=== PATIENT | female | born 1940 | race Caucasian/White ===

== ENCOUNTER → 2017-12-26 12:11 | Outpatient (CLI) | payer OTHER, SELFPAY ==
--- NOTE | 2017-12-26 12:14 | DI.US.S_ITS ---
PROCEDURE: US PERIPH VENOUS UP EXTREM RT INDICATIONS: RIGHT ARM EDEMA TECHNIQUE: Real-time imaging, as well as color and pulse Doppler interrogation, was performed of the right upper extremity deep veins from the inferior neck to the antecubital fossa. COMPARISON: None. FINDINGS: The internal jugular vein, visualized portions of the subclavian vein, axillary, and brachial veins are free of intraluminal thrombus. Where physically possible, the veins are normally compressible. Color and pulse Doppler demonstrate normal intraluminal flow, with expected phasicity and pulsatility. Additional scanning of the cephalic and basilic veins of the superficial system demonstrate normal compressibility, without thrombus. IMPRESSION: No right upper extremity venous thrombosis. Dictated by: Steve ROGER Interpreted: Harmony Aden MD on 12/26/2017 at 13:11 Approved by: Harmony Aden M.D. on 12/26/2017 at 16:22
== END ==
PROVIDERS: Family Provider Family Medicine; PCP Family Medicine; Visit Provider Internal Medicine
DX: R60.0 Localized edema (principal)
CPT/HCPCS: 93971

== ENCOUNTER → 2018-01-16 10:31 | Outpatient (CLI) | payer OTHER, SELFPAY ==
--- NOTE | 2018-01-16 | DI.ECHO.S_ITS ---
[facility] +---------+ : : [address] : : : : [id number] : : : : Phone: [phone]+ Echocardiogram Report + + :Name: AILYN BARGER Study Date: 01/16/2018 Height: 73 in : :[facility] Exam Location: [facility] Weight: 220 lb : : Gender: Female BSA: 2.2 m2 : :: 1940 Age: 77 yrs BP: 118/68 mmHg: :Reason For Study: Mitral Valve Regurgitation : :Ordering Physician: Mohan : :Denis Performed By: Vicki Aleman : :Referring: MOHAN SMILEY : + + Interpretation Summary The left ventricle is borderline dilated. Left ventricular ejection fraction is estimated to be 50%. There has been no significant change since the previous study. The right ventricle is normal in size and function. The right ventricular systolic pressure is estimated at 31 mmHg assuming a right atrial pressure of 3 mm Hg. Compared to the prior echo exam, there has been a decrease in the severity of pulmonary hypertension. Both atria are severely dilated. There is moderate mitral regurgitation. Compared to the prior echo study, there has been a decrease in the severity of mitral regurgitation. There is moderate to severe tricuspid regurgitation. Compared to the prior echo exam, there has been no change in TR severity. There is no other significant valvular heart disease. The aortic root is normal size. Procedure: There has been no significant change since the previous study. The study quality was technically adequate. Comparison is made with the echocardiogram of 12/25/2016. The patient was in atrial fibrillation with heart rates between 69-92 bpm during the exam. Left Ventricle: The left ventricle is borderline dilated. Left ventricular wall thickness is mildly increased. Left ventricular ejection fraction is estimated to be 50%. There has been no significant change since the previous study. There are no focal wall motion abnormalities. Diastolic function could not be accurately assessed due to atrial fibrillation. Right Ventricle: The right ventricle is normal in size and function. Atria: Both atria are severely dilated. A secundum type atrial septal defect is present. There has been no significant change since the previous study. Mitral Valve: The mitral valve leaflets appear borderline thickened, but open well. There is moderate mitral regurgitation. Compared to the prior echo study, there has been a decrease in the severity of mitral regurgitation. Aortic Valve: The aortic valve is trileaflet. No aortic regurgitation is present. Tricuspid Valve: The tricuspid valve leaflets are thin and pliable. There is moderate to severe tricuspid regurgitation. Compared to the prior echo exam, there has been no change in TR severity. The right ventricular systolic pressure is estimated at 31 mmHg assuming a right atrial pressure of 3 mm Hg. Compared to the prior echo exam, there has been a decrease in the severity of pulmonary hypertension. Pulmonic Valve: The pulmonic valve is not well seen, but is grossly normal. There is trace pulmonic regurgitation. There is no other significant valvular heart disease. Great Vessels: The aortic root is normal size. The ascending aorta is normal in size. The IVC is of normal diameter and collapses greater than 50% with a sniff. This suggests a low right atrial pressure of 3 mm Hg. Pericardium/ Pleura There is no pericardial effusion. There is no pleural effusion. MMode/2D Measurements & Calculations LVIDd: 5.6 cm LVOT diam: 2.5 cm LVIDs: 4.7 cm Ao root diam: 3.7 cm FS: 15.5 % asc Aorta Diam: 3.5 cm IVSd: 1.2 cm LVPWd: 1.3 cm LV langford. diameter/BSA (cm/m^2): 2.5 LV sys. diameter/BSA (cm/m^2): 2.1 LA A2 area: 48.3 cm2 RA long axis: 8.4 cm LA A4 area: 47.8 cm2 RA area: 40.6 cm2 LA length (vol): 8.2 cm RA vol: 167.2 ml LA vol: 239.0 ml RA : 74.6 ml/m2 LA vol index: 106.7 ml/m2 IVC diam: 1.00 cm TAPSE: 2.0 cm Doppler Measurements & Calculations Ao V2 max: 111.5 cm/sec LVOT Max Ivan: 92.6 cm/sec Ao V2 mean: 73.8 cm/sec LV V1 max P.4 mmHg Ao max P.0 mmHg LV V1 VTI: 18.2 cm Ao mean P.6 mmHg TANNER(I,D): 4.2 cm2 Ao V2 VTI: 21.7 cm TANNER(V,D): 4.1 cm2 sev ratio: 0.84 TANNER indexed to BSA (cm^2/m^2): 1.9 TR max ivan: 262.4 cm/sec TR max P.5 mmHg PA V2 max: 62.2 cm/sec PA V2 mean: 37.2 cm/sec PA mean P.65 mmHg PA pr(Accel): 16.6 mmHg Reading Physician:RHEA
== END ==
PROVIDERS: Visit Provider Internal Medicine Cardiovascular Disease
DX: I08.1 Rheumatic disorders of both mitral and tricuspid valves (principal)
CPT/HCPCS: 93306

== ENCOUNTER → 2018-02-11 07:59 | Outpatient (CLI) | payer OTHER, SELFPAY ==
--- NOTE | 2018-02-11 08:01 | DI.US.S_ITS ---
PROCEDURE: US SOFT TISSUE HEAD AND NECK INDICATIONS: RIGHT NECK EDEMA TECHNIQUE: Real-time scanning was performed of the neck region of interest, with image documentation. COMPARISON: None. FINDINGS: No edema, fluid collection or mass seen within the right neck. IMPRESSION: No sonographic abnormality. Dictated by: Steve ROGER Interpreted: Bandar Prado MD on 02/11/2018 at 9:03 Approved by: Bandar Prado M.D. on 02/11/2018 at 15:44
== END ==
PROVIDERS: Visit Provider Nurse Practitioner Family
DX: R60.0 Localized edema (principal)
CPT/HCPCS: 76536

== ENCOUNTER 2018-04-05 09:05 | Emergency (ER) | payer OTHER, SELFPAY ==
--- NOTE | 2018-04-05 09:08 | ED_ITS ---
HPI - Fall General Chief Complaint: Extremity Injury, Upper Stated Complaint: FELL LAST NIGHT, RT WRIST AND HAND PAIN Time Seen by Provider: 04/05/18 09:08 Source: patient Mode of arrival: ambulatory Limitations: no limitations History of Present Illness HPI Narrative: Patient is a 77-year-old female here for evaluation of right wrist pain. She states she fell yesterday trying to get out of her physician close. She states that she fell forward. Unsure how she landed on her wrist however has had pain since then. Arrived with a wrist splint in place that she had at home. Related Data Home Medications Medication Instructions Recorded Confirmed CYANOCOBALAMIN (VITAMIN B-12) 1,000 mcg PO Q DAY #0 03/21/11 01/28/18 (Vitamin B-12) [FISHOIL] 1,000 mg PO Q DAY #0 01/30/12 01/28/18 multivitamin [Multiple Vitamins] #0 08/05/17 01/28/18 Previous Rx's Medication Instructions Recorded nystatin 1 lulu TOPICAL TID #15 gm 11/05/16 warfarin [Coumadin] 0 PO SEE INSTRUCTIONS #150 tab 02/06/17 carvedilol [Coreg] 25 mg PO BID #180 tab 03/25/17 carvedilol [Coreg] 12.5 mg PO BID #180 tab 04/05/17 tramadol 50 mg PO Q6H #30 tab 04/16/17 furosemide [Lasix] 20 mg PO EVEROTHDAY #60 tab 05/02/17 estradiol [Estrace] 1 gm VAGINAL BID #1 tube 05/03/17 betamethasone dipropionate 1 lulu TOPICAL BID #30 gm 08/22/17 fluticasone 50 mcg/actuation nasal 2 spray NASAL DAILY #9.9 gram 11/12/17 spray,suspension levocetirizine 5 mg tablet 5 mg PO BEDTIME #30 tab 11/12/17 losartan 25 mg tablet 25 mg PO QDAY #90 tab 12/05/17 warfarin 5 mg tablet 5 mg PO SEE INSTRUCTIONS #150 tab 01/30/18 Allergies Allergy/AdvReac Type Severity Reaction Status Date / Time acetaminophen Allergy Mild UPSET Verified 01/28/18 11:34 STOMACH digoxin Allergy Mild SWELLING Verified 01/28/18 11:34 LOWER EXTRMITIES hydromorphone Allergy Mild N/V Verified 01/28/18 11:34 adhesive Allergy Unknown SENSITVE Verified 01/28/18 11:34 TO TAPE ibuprofen AdvReac Mild UNABLE TO Verified 01/28/18 11:34 TAKE DUE TO COUMADIN meperidine AdvReac Mild GI UPSET Verified 01/28/18 11:34 WITH VOMITING xylitol AdvReac Mild diarrhea Verified 01/28/18 11:34 and upset stomach Review of Systems Constitutional Denies headache(s) ENT Ears, Nose, Mouth, and Throat: Denies headache(s) Cardiovascular Denies chest pain and Denies dyspnea Respiratory Denies dyspnea Musculoskeletal Comments: Right wrist pain and swelling Integumentary/Breasts Denies lesions and Denies rash Neurologic Denies headache(s) Hematologic/Lymphatic Denies easy bleeding Exam Initial Vital Signs Initial Vital Signs: Vital Signs Temperature 97.8 F 04/05/18 09:21 Pulse Rate 76 04/05/18 09:21 Respiratory Rate 16 04/05/18 09:21 Blood Pressure 137/74 04/05/18 09:21 Pulse Oximetry 99 04/05/18 09:21 Const General: cooperative, healthy appearing, comfortable, well developed, well groomed and No acute distress Orientation: alert, awake and oriented x3 HENMT Head: normal to inspection and normocephalic Resp Effort & Inspection: normal respiratory effort Cardio Pulses: radial pulses present on the right Skin Lesions: no lesions Rashes: no rashes Neuro Sensory Exam: no sensory deficits noted Extrem Other: Right shoulder unremarkable Right wrist unremarkable Patient able to pronate without any problems Some difficulty with supination. Decreased range of motion of the right wrist secondary to pain. Does have tenderness to palpation of the distal wrist. Right hand unremarkable. Psych Appearance: grossly normal and well kempt [facility] Social History Smoking Status: Former smoker Course Orders Ordered: ED Orders 04/05/18 09:23 XR wrist RT min 3V Stat Vital Signs - 8 hr 04/05/18 09:21 Temperature 97.8 F Pulse Rate 76 Respiratory Rate 16 Blood Pressure 137/74 Pulse Oximetry 99 MDM - Fall Imaging Data Wrist x-ray: Radiologist's impression: [address] [address] XRay Report Signed Patient: Ana M Gale [facility]#: [id number] : 3Acct:[id number] Age/Sex: 77 / FDate of Service: 04/05/18 Loc: ED Accession Number: [id number] Procedure: XR wrist RT min 3V Ordering Provider: Jesse Fernandez D.O. PROCEDURE: XR WRIST RT MIN 3V INDICATIONS: Distal radius and ulna pain after fall TECHNIQUE: 4 views of the wrist were acquired. COMPARISON: [facility], , WRIST MINIMUM 3 VIEWS RIGHT, 04/16/2017, 10: 02. FINDINGS: Bones: No fractures or dislocations. No suspicious bony lesions. Joint space narrowing and periarticular osteophyte formation at the radiocarpal, scaphotrapezial, and first carpometacarpal joints. Scaphoid view: Negative Soft tissues: No suspicious soft tissue calcifications. IMPRESSION: Osteoarthritis. No acute fracture. No osseous lesion. If clinical suspicion and/or symptoms persist, further assessment with repeat plainfilms, or advanced imaging (e.g., CT, MRI, or bone scan) may be helpful for further assessment. Dictated by: Rachel Ivey M.D. on 04/05/2018 at 9:52 Approved by: Rachel Ivey M.D. on 04/05/2018 at 9:53 [facility] Narrative Medical decision making narrative: Patient is neurovascularly intact. No fractures noted on the x-ray. Skin is intact. Hold on further workup for now. Patient does have a wrist brace that she can use as needed. She was given return precautions. She expressed understanding and agreement with plan. Discharge Plan Departure Patient Disposition: Home Clinical Impression: Right wrist sprain Instructions: DI for Wrist Sprain, How To Perform RICE (Rest, Ice, Compress, Elevate) Activity Restrictions/Additional Instructions: You can continue to use the wrist brace as needed for comfort. I also encouraged you to ice her wrist. You can take anti-inflammatories such as Motrin or Naprosyn. Return to the emergency department for any new or worsening symptoms Prescriptions: No Action CYANOCOBALAMIN (VITAMIN B-12) (Vitamin B-12) 1,000 mcg PO Q DAY Qty: 0 RF: 0 [FISHOIL] 1,000 mg PO Q DAY Qty: 0 RF: 0 nystatin 15 GM ointment 1 lulu Topical TID Qty: 15 RF: 0 warfarin [Coumadin] 5 MG tablet PO SEE INSTRUCTIONS Qty: 150 RF: 1 carvedilol [Coreg] 25 MG tablet 25 mg PO BID Qty: 180 RF: 3 carvedilol [Coreg] 12.5 MG tablet 12.5 mg PO BID Qty: 180 RF: 3 tramadol 50 MG tablet 50 mg PO Q6H Qty: 30 RF: 0 furosemide [Lasix] 20 MG tablet 20 mg PO EVEROTHDAY Qty: 60 RF: 0 estradiol [Estrace] 0.01 % cream 1 gm Vaginal BID Qty: 1 RF: 2 multivitamin [Multiple Vitamins] 1 EACH tablet Qty: 0 RF: 0 betamethasone dipropionate 0.05 % cream 1 lulu Topical BID Qty: 30 RF: 2 losartan 25 mg tablet 25 mg PO QDAY Qty: 90 RF: 3 warfarin [Coumadin] 5 mg tablet 5 mg PO SEE INSTRUCTIONS Qty: 150 RF: 3 fluticasone 50 mcg/actuation spray,suspension 2 spray NASAL DAILY Qty: 9.9 RF: 3 levocetirizine 5 mg tablet 5 mg PO BEDTIME Qty: 30 RF: 3
[2018-04-05 09:21] VITALS: BP 137/74; PULSE 76; RESP 16; TEMP 36.6; O2SAT 99; BMI 27.8
--- NOTE | 2018-04-05 09:23 | DI.RAD.S_ITS ---
PROCEDURE: XR WRIST RT MIN 3V INDICATIONS: Distal radius and ulna pain after fall TECHNIQUE: 4 views of the wrist were acquired. COMPARISON: [facility], , WRIST MINIMUM 3 VIEWS RIGHT, 04/16/2017, 10:02. FINDINGS: Bones: No fractures or dislocations. No suspicious bony lesions. Joint space narrowing and periarticular osteophyte formation at the radiocarpal, scaphotrapezial, and first carpometacarpal joints. Scaphoid view: Negative Soft tissues: No suspicious soft tissue calcifications. IMPRESSION: Osteoarthritis. No acute fracture. No osseous lesion. If clinical suspicion and/or symptoms persist, further assessment with repeat plainfilms, or advanced imaging (e.g., CT, MRI, or bone scan) may be helpful for further assessment. Dictated by: Rachel Ivey M.D. on 04/05/2018 at 9:52 Approved by: Rachel Ivey M.D. on 04/05/2018 at 9:53
== END 2018-04-05 10:10 | disposition home or self-care (01) ==
PROVIDERS: Emergency Provider Emergency Medicine; PCP Family Medicine
DX: S63.501A Unspecified sprain of right wrist, initial encounter (principal); W18.30XA Fall on same level, unspecified, initial encounter
CPT/HCPCS: 73110; 99282; 99283

== ENCOUNTER → 2018-06-26 11:19 | Outpatient (CLI) | payer OTHER, SELFPAY ==
[2018-06-26 15:37] LABS: Vitamin D 25 Hydroxy (D3) 47.2 ng/mL (30.0-100.0)
== END ==
PROVIDERS: PCP Student in an Organized Health Care Education/Training Program; Visit Provider Student in an Organized Health Care Education/Training Program
DX: M81.0 Age-related osteoporosis without current pathological fracture (principal)
CPT/HCPCS: 36415; 82306

== ENCOUNTER → 2018-07-07 13:32 | Outpatient (CLI) | payer OTHER, SELFPAY | PROVIDERS: PCP Student in an Organized Health Care Education/Training Program; Visit Provider Student in an Organized Health Care Education/Training Program | DX: M85.832 Other specified disorders of bone density and structure, left forearm (principal); Z78.0 Asymptomatic menopausal state; Z82.62 Family history of osteoporosis; Z87.891 Personal history of nicotine dependence | CPT/HCPCS: 77080 ==

== ENCOUNTER 2018-07-22 12:16 | Emergency (ER) | payer OTHER, SELFPAY ==
[2018-07-22 12:26] VITALS: BP 141/75; PULSE 62; RESP 18; TEMP 36.8; O2SAT 96; BMI 28.3
--- NOTE | 2018-07-22 16:29 | ED.FEMALEGU ---
HPI - Female Genitourinary <Alivia Ya PA-C - Last Filed: 07/22/18 22:04> General Chief complaint: Urogenital-Female Stated complaint: VAGINAL SORE BURST Time Seen by Provider: 07/22/18 16:06 Source: patient Mode of arrival: ambulatory Limitations: no limitations History of Present Illness HPI Narrative: This 77 y.o. female the comes to ED secondary to concern for vaginal abscess/infection. She states that she has a history of lichen sclerosis, but has noted increased discomfort over the last couple of weeks and states that over the weekend she noted the area around the clitoris was swollen to the ?size of a golf ball?. She states that she talked to her advised cold packs which she has been doing. She states that this morning, she noted the area starting to weep and opened up. It drained malodorous pus and blood. She states that painful currently. She denies any fever or other new complaints aside from this. She avoided putting on her steroid cream this morning. She has an appointment to see sales planning manager on Saturday but was concerned this could not wait. Related Data Home Medications Medication Instructions Recorded Confirmed CYANOCOBALAMIN (VITAMIN B-12) 1,000 mcg PO Q DAY #0 03/21/11 06/26/18 (Vitamin B-12) [FISHOIL] 1,000 mg PO Q DAY #0 01/30/12 06/26/18 multivitamin [Multiple Vitamins] #0 08/05/17 06/26/18 Previous Rx's Medication Instructions Recorded estradiol [Estrace] 1 gm VAGINAL BID #1 tube 05/03/17 fluticasone 50 mcg/actuation nasal 2 spray NASAL DAILY #9.9 gram 11/12/17 spray,suspension levocetirizine 5 mg tablet 5 mg PO BEDTIME #30 tab 11/12/17 warfarin 5 mg tablet 5 mg PO SEE INSTRUCTIONS #150 tab 01/30/18 losartan 25 mg tablet 25 mg PO QDAY #90 tab 05/08/18 furosemide 20 mg tablet 20 mg PO EVEROTHDAY #60 tab 06/26/18 carvedilol 12.5 mg tablet 12.5 mg PO BID #180 tab 07/11/18 Allergies Allergy/AdvReac Type Severity Reaction Status Date / Time acetaminophen Allergy Mild UPSET Verified 06/26/18 10:50 STOMACH digoxin Allergy Mild SWELLING Verified 06/26/18 10:50 LOWER EXTRMITIES hydromorphone Allergy Mild N/V Verified 06/26/18 10:50 adhesive Allergy Unknown SENSITVE Verified 06/26/18 10:50 TO TAPE ibuprofen AdvReac Mild UNABLE TO Verified 06/26/18 10:50 TAKE DUE TO COUMADIN meperidine AdvReac Mild GI UPSET Verified 06/26/18 10:50 WITH VOMITING xylitol AdvReac Mild diarrhea Verified 06/26/18 10:50 and upset stomach Review of Systems <Alivia Ya PA-C - Last Filed: 07/22/18 22:04> Review of Systems ROS Unobtainable: All systems reviewed & are unremarkable except as noted in HPI and below PFSH <Alivia Ya PA-C - Last Filed: 07/22/18 22:04> Medical History Atrial fibrillation (Chronic 2006) CTS (carpal tunnel syndrome) (Chronic) Cardiomyopathy (Chronic) Hayfever (Chronic 1959) Heart failure, systolic (Chronic) Lichen sclerosus et atrophicus (Chronic 2011) Mitral stenosis (Chronic) Osteoarthritis (Chronic 1996) Osteopenia (Chronic) Osteoporosis (Chronic) Bimalleolar fracture of right ankle (Resolved 2015) Cataract (Resolved) Chicken pox (Resolved 1948) 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) Fractures (Resolved 10/08/07) Measles (Resolved 1948) Surgical History Anesthesia (Resolved) History of carpal tunnel repair (Resolved 1979) History of carpal tunnel repair (Resolved 03/23/04) History of cataract removal with insertion of prosthetic lens (Resolved 01/02/12) History of cataract removal with insertion of prosthetic lens (Resolved 12/19/11) History of hip replacement (Resolved 05/08/10) History of hip surgery (Resolved 05/16/08) History of hip surgery (Resolved 10/08/07) History of knee replacement (Resolved 02/11/12) History of knee replacement (Resolved 07/19/08) History of nasal surgery (Resolved 10/03/11) History of orthopedic surgery (Resolved 10/17/09) Status post vaginal hysterectomy (Resolved 1974) Family History Father Family history of MT (myocardial infarction) Heart disease Congestive heart failure Mother Cancer Myeloma Necrotizing fasciitis Brother MVA (motor vehicle accident) Sister No problems noted. Daughter No problems noted. Son No problems noted. Social History Smoking Status: Former smoker Social History Smoking Status: Former smoker Exam <Alivia Ya PA-C - Last Filed: 07/22/18 22:04> Narrative Exam Narrative: GENERAL APPEARANCE: Patient sitting comfortably, in no distress. LUNGS: Clear to auscultation bilaterally. HEART: Rate and rhythm irregular without murmur : Vaginal tissue is thin, atrophy, with some whitish discoloration. In the midline around the clitoral area there is mild erythema and some induration, the clitoris is not visible and the labia appears fused. There is a visible pore on the R. side but I am unable to express any drainage. Nontender. No other palpable mass, no other skin lesions, no d/c Initial Vital Signs Initial Vital Signs: Vital Signs Temperature 98.2 F 07/22/18 12:26 Pulse Rate 62 07/22/18 12:26 Respiratory Rate 18 07/22/18 12:26 Blood Pressure 141/75 H 07/22/18 12:26 Pulse Oximetry 96 07/22/18 12:26 <Ruth Ann Aj DO - Last Filed: 07/26/18 00:50> Initial Vital Signs Initial Vital Signs: Vital Signs Temperature 98.2 F 07/22/18 12:26 Pulse Rate 62 07/22/18 12:26 Respiratory Rate 18 07/22/18 12:26 Blood Pressure 141/75 H 07/22/18 12:26 Pulse Oximetry 96 07/22/18 12:26 Course <Alivia Ya PA-C - Last Filed: 07/22/18 22:04> Additional Information: The patient has some induration and what looks like fused labia, likely due to her lichen sclerosis. Unclear to me whether she may have had a new abscess that drained since she describes blood and pus draining. We phoned Dr. Espinosa's office to see whether the patient could follow up earlier, and Dr. Espinosa was kind enough to see patient in the ED here. She agreed that this area was indurated and felt most likely due to inflammation from the lichen sclerosis. She advised that there may have been fluid behind the fused area. She did not think antibiotics needed now. She advised patient to continue b.i.d. as topical steroid application as well as her Estrace and cold packs. She will follow up with patient in her office next week Vital Signs - 8 hr 07/22/18 12:26 Temperature 98.2 F Pulse Rate 62 Respiratory Rate 18 Blood Pressure 141/75 H Pulse Oximetry 96 <Ruth Ann Aj, DO - Last Filed: 07/26/18 00:50> Vital Signs - 8 hr 07/22/18 12:26 Temperature 98.2 F Pulse Rate 62 Respiratory Rate 18 Blood Pressure 141/75 H Pulse Oximetry 96 Discharge Plan Departure Patient Disposition: Home Clinical Impression: Lichen sclerosus et atrophicus Discharge Date/Time: 07/22/18 18:15 Interventions: ED Discharge Assessment Last Done: 07/22/18 18:08 Activity Restrictions/Additional Instructions: It sounds like you could have had a small abscess that drained earlier today, or this may have been due to the inflammation from your lichen sclerosis, and there could have been a fluid collection underneath the fused labial tissue. Dr. Espinosa does not think you need to be on an antibiotic now. She wants you to use your betamethasone cream twice daily, and also use your Estrace cream once daily. Please start those tonight. Please keep your appointment with her on Saturday (call her office 1st thing in the morning to make sure this was not canceled as she wants to see you then instead of ). Thank you for your kindness and patience today with the long wait in our busy emergency department Prescriptions: No Action CYANOCOBALAMIN (VITAMIN B-12) (Vitamin B-12) 1,000 mcg PO Q DAY Qty: 0 RF: 0 [FISHOIL] 1,000 mg PO Q DAY Qty: 0 RF: 0 estradiol [Estrace] 0.01 % cream 1 gm Vaginal BID Qty: 1 RF: 2 multivitamin [Multiple Vitamins] 1 EACH tablet Qty: 0 RF: 0 warfarin [Coumadin] 5 mg tablet 5 mg PO SEE INSTRUCTIONS Qty: 150 RF: 3 losartan 25 mg tablet 25 mg PO QDAY Qty: 90 RF: 0 carvedilol [Coreg] 12.5 mg tablet 12.5 mg PO BID Qty: 180 RF: 3 fluticasone 50 mcg/actuation spray,suspension 2 spray NASAL DAILY Qty: 9.9 RF: 3 levocetirizine 5 mg tablet 5 mg PO BEDTIME Qty: 30 RF: 3 furosemide [Lasix] 20 mg tablet 20 mg PO EVEROTHDAY Qty: 60 RF: 1 Referrals: Sai Ott MD [Primary Care Provider] - Jody Espinosa MD [Physician] - <Ruth Ann Aj DO - Last Filed: 07/26/18 00:50> Cosign ED Attending Tjature Attestation: I was immediately available in the department for consultation. Documentation has been reviewed. I agree with assessment and plan.
--- NOTE | 2018-07-22 17:39 | PC.NURSE ---
awaiting dr. pena to see
--- NOTE | 2018-07-22 18:03 | PC.NURSE ---
dr. pena here to see
== END 2018-07-22 18:15 | disposition home or self-care (01) ==
PROVIDERS: Emergency Provider Internal Medicine; PCP Student in an Organized Health Care Education/Training Program
DX: L90.0 Lichen sclerosus et atrophicus (principal)
CPT/HCPCS: 99282

== ENCOUNTER → 2018-08-25 11:46 | Outpatient (CLI) | payer OTHER, SELFPAY ==
[2018-08-25 11:51] LABS: RBC Urine None Seen (0-5/HPF)
[2018-08-25 12:13] LABS: Appearance Urine UA CLOUDY; Bilirubin Urine UA NEGATIVE (NEGATIVE); Color Urine UA YELLOW; Glucose Urine UA NEGATIVE (Negative); Ketones Urine UA NEGATIVE (NEGATIVE); Leukocyte Esterase Urine UA 1+ (NEGATIVE); Nitrite Urine UA NEGATIVE (Negative); Occult Blood Urine UA 3+ (Negative); Protein Urine UA TRACE (Negative); Specific Gravity Urine UA >=1.030 (1.000-1.035); Urobilinogen Urine UA 0.2 E.U./dL (0.2)
[2018-08-25 12:38] LABS: Bacteria Urine Moderate (10-30); Culture Indicated Urine Specimen Cultured; Renal Epithelial Cells Urine 0-1/HPF (0-1/HPF); Squamous Epithelial Cell Urine 1-5 /HPF (0-5/HPF); WBC Urine 10-30/HPF (0-5/HPF)
== END ==
PROVIDERS: Family Provider Student in an Organized Health Care Education/Training Program; PCP Student in an Organized Health Care Education/Training Program; Visit Provider Internal Medicine
DX: R39.89 Other symptoms and signs involving the genitourinary system (principal)
CPT/HCPCS: 81001; 87077; 87086; 87186

== ENCOUNTER → 2018-09-23 12:51 | Outpatient (CLI) | payer OTHER, SELFPAY | PROVIDERS: Family Provider Student in an Organized Health Care Education/Training Program; PCP Student in an Organized Health Care Education/Training Program; Visit Provider Obstetrics & Gynecology | DX: R30.0 Dysuria (principal) | CPT/HCPCS: 87086 ==

== ENCOUNTER 2018-10-03 09:29 | Day surgery (SDC) | payer OTHER, SELFPAY ==
[2018-10-03 10:11] VITALS: BMI 27.7
[2018-10-03 10:15] VITALS: BP 130/72; PULSE 75; RESP 15; TEMP 36.1; O2SAT 94
[2018-10-03] MEDS: LACTATED RINGERS 1,000 ML 100 ML IV (10:29)
--- NOTE | 2018-10-03 11:16 | PM.PREOP ---
Pre-operative Note Interval Note History & Physical reviewed/Exam performed by Physician: Yes Changes to H&P: No
--- NOTE | 2018-10-03 11:16 | PM.HP.1 ---
History of Present Illness Date Patient Seen: 10/03/18 Time Patient Seen: 11:34 Chief complaint: [id number] PELVIC Narrative: Patient is a 78-year-old with labial agglutination with a blind pocket and recurrent abscesses behind the agglutination Patient History Family & Social History Social History: household members spouse Tobacco & Substance use: Smoking Status Former smoker alcohol intake frequency other Substance Use Type does not use Meds Home Medications Medication Instructions Recorded Confirmed Type [FISHOIL] 1,000 mg PO Q DAY #0 01/30/12 10/03/18 History estradiol [Estrace] 1 gm VAGINAL BID #1 tube 05/03/17 10/03/18 Rx multivitamin [Multiple Vitamins] 1 tab PO DAILY #0 08/05/17 10/03/18 History fluticasone propionate 50 2 spray NASAL DAILY #9.9 gram 11/12/17 10/03/18 Rx mcg/actuation nasal spray,suspension warfarin 5 mg tablet 5 mg PO SEE INSTRUCTIONS #150 tab 01/30/18 10/03/18 Rx losartan 25 mg tablet 25 mg PO QDAY #90 tab 05/08/18 10/03/18 Rx furosemide 20 mg tablet 20 mg PO EVEROTHDAY #60 tab 06/26/18 10/03/18 Rx carvedilol 12.5 mg tablet 12.5 mg PO BID #180 tab 07/11/18 10/03/18 Rx calcium citrate 250 mg tablet 500 mg PO BID tab 09/25/18 10/03/18 History cholecalciferol (vitamin D3) 2,000 2,000 unit PO BID cap 09/25/18 10/03/18 History unit capsule salicylic acid 6 % topical cream 1 applictn TOP BEDTIME #227 gram 09/25/18 10/03/18 Rx betamethasone, augmented 0.05 % 1 applictn TOP DAILY #30 gram 09/30/18 10/03/18 Rx topical gel Allergies Allergy/AdvReac Type Severity Reaction Status Date / Time acetaminophen Allergy Mild UPSET Verified 10/03/18 10:18 STOMACH digoxin Allergy Mild SWELLING Verified 10/03/18 10:18 LOWER EXTRMITIES hydromorphone Allergy Mild N/V Verified 10/03/18 10:18 adhesive Allergy Unknown SENSITVE Verified 10/03/18 10:18 TO TAPE ibuprofen AdvReac Mild UNABLE TO Verified 10/03/18 10:18 TAKE DUE TO COUMADIN meperidine AdvReac Mild GI UPSET Verified 10/03/18 10:18 WITH VOMITING xylitol AdvReac Mild diarrhea Verified 10/03/18 10:18 and upset stomach Exam Vital Signs (past 8 hours): - 10/03/18 10:15 Temperature 97.0 F L Pulse Rate 75 Respiratory Rate 15 Blood Pressure 130/72 Pulse Oximetry 94 Oxygen Delivery Method Room Air Narrative Exam Narrative: HEENT: No thyromegaly, no anterior cervical or supraclavicular lymphadenopathy. Lungs:Clear to auscultation bilaterally, no wheezes. Cardiovascular: Regular rate and rhythm, no murmurs, rubs, or gallops. Abdomen: No scars. No hepatosplenomegaly. No masses palpable. External genitalia: White patches consistent with lichen sclerosis. Severe atrophy. The labia minora are gluten aided with a blind pocket behind. There is a mass behind the agglutination. Vagina: Atrophic Cervix: Absent Bimanual exam: No masses or tenderness Rectal: No masses. 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 The risks including bleeding and infection. She understands these risks and agrees to proceed. A full PAR-Q was held and consent form was signed.
--- NOTE | 2018-10-03 11:45 | SUR.OPER ---
Lithotomy on padded OR bed, head on pillow, arms secured on padded arm boards at <90 degrees abduction. Legs secured in padded yellow fins stirrups.
[2018-10-03] MEDS: BUPIVACAINE 0.5% W/ EPI (PF) VIAL 30 ML INJ (11:54)
[2018-10-03] MEDS: SILVER SULFADIAZINE 1% CREAM 25 GM 1 APPLIC TOP (12:01)
[2018-10-03 12:10] VITALS: BP 123/63; PULSE 63; RESP 16; TEMP 36.9; O2SAT 95
[2018-10-03 12:15] VITALS: BP 114/47; PULSE 55; RESP 13; O2SAT 95
[2018-10-03 12:20] VITALS: BP 123/60; PULSE 61; RESP 12; O2SAT 94
[2018-10-03 12:24] VITALS: BP 128/62; PULSE 62; RESP 12; O2SAT 93
[2018-10-03 13:15] VITALS: BP 119/72; PULSE 63; RESP 20; TEMP 36.6; O2SAT 98
--- NOTE | 2018-10-03 15:08 | SUR.PHASEII ---
pt was told to take ibuprofen. However, she has been told she can not take NSAIDS with her other medications. Dr ruiz office / Eun instructed that patient has OK to take Tylenol. Pt has questions re estrace cream and silvadene cream- Eun will call and give instructions to patient
--- NOTE | 2018-10-04 15:17 | PM.GYNOP.1 ---
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 Post-op diagnosis: same Procedure: Procedures Operation Date: 10/03/18 10:45 Actual Procedures Side Surgeon p Seperation of labia; I&D of abscess Jody Espinosa MD Indications: Agglutination of the labia minora Blind pouch behind the labia minora with recurrent abscesses Surgeon: Jody Espinosa Anesthesia Type: General (LMA) Operative Notes Findings: Severe agglutination of the labia minora covering the clitoris Closure Type: primary Specimen(s): none Estimated blood loss (mL): 3 Blood products transfused: none Procedure in detail: After informed consent was obtained, the patient was taken to the operating room where she was placed in the dorsal supine position. After adequate LMA general anesthesia was achieved, she was placed in the dorsal lithotomy position, and prepped and draped in the usual sterile fashion. A time-out was performed. 4 cc of 0.5% Marcaine with epinephrine were injected below the lines the labia minora. Using a # 15 blade, the labia minora were and the underlying clitoris was then visible. There was 1 blind pouch that was also opened and a small amount of fluid drained from that area. This did not appear purulence. The contours of the labia minora were blunted but could be visualized. No labia majora could be visualized. There was a small 0.5 cm x 0.5 cm thickened area on the right side. This was incised to insure that there was no abscess behind this. It was just a fatty mass. The area was closed with 5 0 x 0 Son with simple interrupted sutures. Pressure was held with a moist lap until hemostasis was achieved. Silvadene cream was applied to all of the areas. Sponge, lap, and instrument counts were correct x2. The patient tolerated the procedure well, was taken to PACU in stable condition. Complications: none
== END 2018-10-03 13:29 | disposition home or self-care (01) ==
PROVIDERS: Family Provider Student in an Organized Health Care Education/Training Program; PCP Student in an Organized Health Care Education/Training Program; Visit Provider Obstetrics & Gynecology
PROC: (CPT 56440; principal; 2018-10-03 10:45)
DX: N76.4 Abscess of vulva (principal); Q52.5 Fusion of labia
CPT/HCPCS: 15839; 56405; J2405; J2704; J3010

== ENCOUNTER → 2018-12-09 09:44 | Outpatient (CLI) | payer OTHER, SELFPAY | PROVIDERS: PCP Student in an Organized Health Care Education/Training Program; Visit Provider Physician Assistant | DX: N89.8 Other specified noninflammatory disorders of vagina (principal); R30.0 Dysuria | CPT/HCPCS: 87077; 87086; 87186; 87210 ==

== ENCOUNTER → 2018-12-13 12:13 | Outpatient (CLI) | payer OTHER, SELFPAY ==
--- NOTE | 2018-12-13 | DI.MRI.S_ITS ---
PROCEDURE: MR LUMBAR SPINE WO CON INDICATIONS: lumbar pain TECHNIQUE: Noncontrast sagittal T1 spin echo and T2 fast echo, sagittal STIR, axial T1 and T2 fast spin echo through the lumbar spine. In cases with scoliosis, additional coronal T2 fast spin echo may be performed. COMPARISON: [facility], , L-SPINE 2-3 VIEWS, 12/13/2011, 20:36. FINDINGS: Image quality: Excellent. Alignment and Curvature: There is mild to moderate dextroconvex lumbar scoliosis. Minimal retrolisthesis is seen at the T2 level I, L1-L2, and L2-L3 levels. Bone Marrow: Marrow is of normal overall signal. No acute vertebral body compression fractures. Spinal Cord: Conus medullaris terminates at the L1 level. Visualized cord demonstrates normal signal and size. Paraspinous Soft Tissues: No paravertebral masses. This patient has transitional lumbar anatomy. For the purposes of this examination, the level with the last visualized paravertebral cyst considered to be T12. By this numbering scheme, the L5-S1 level is transitional and rudimentary. T11-T12: Moderate loss of disc height is seen. Reactive marrow endplate changes are seen, which demonstrate mixed T1 weighted and T2-weighted signal, and are attributed to a combination of edema and fatty metaplasia (Modic type I and Modic type II changes). Mild to moderate disc bulge is seen. Moderate bilateral neural foraminal narrowing is seen, left worse than right. Mild to moderate central canal narrowing is seen. T12-L1: The disc height is well-preserved. Loss of disc signal is seen at this level. Reactive marrow endplate changes are seen which are hypointense on T1-weighted imaging and hyperintense on T2 weighted imaging, which is most consistent with edema (Modic type I changes). There is mild to moderate left-sided and minimal right-sided neural foraminal narrowing seen. Mild central canal narrowing is seen. L1-L2: The disc height is well-preserved. Loss of disc signal is seen at this level. Endplate irregularity can be seen. Reactive marrow endplate changes are seen which are hypointense on T1-weighted imaging and hyperintense on T2 weighted imaging, which is most consistent with edema (Modic type I changes). Moderate loss of disc height is seen. Loss of disc signal is seen. Moderate generalized disc bulge is seen. There is associated mild to moderate hypertrophy of the ligamentum flavum. There is moderate right-sided and moderate to severe left-sided neural foraminal narrowing seen. There is a degree of compression seen upon the exiting nerve roots. Moderate central canal narrowing is seen. L2-L3: Mild loss of disc height is seen. Loss of disc signal is seen. Reactive marrow endplate changes are seen, which demonstrate mixed T1 weighted and T2-weighted signal, and are attributed to a combination of edema and fatty metaplasia (Modic type I and Modic type II changes). Moderate generalized disc bulge is seen. [id number] facet hypertrophy is seen. Moderate to severe bilateral neural foraminal narrowing is seen. There is a degree of compression seen upon the exiting nerve roots. Moderate central canal narrowing is seen. L3-L4: The disc height is well-preserved. Loss of disc signal is seen at this level. Moderate generalized disc bulge is seen. Moderate facet joint hypertrophy is seen. There is associated moderate hypertrophy of the ligamentum flavum. Moderate bilateral neural foraminal narrowing is seen, right worse than left. Moderate central canal narrowing is seen. L4-L5: Mild to moderate loss of disc height is seen on the right side. Loss of disc signal is seen. Moderate generalized disc bulge is seen. Large prominent facet hypertrophy is seen. There is moderate right-sided and mild to moderate left-sided neural foraminal narrowing seen. Moderate central canal narrowing is seen. L5-S1: There is a transitional, rudimentary disc seen at this level, with a degree of vertebral body fusion anteriorly. No significant disc bulge is seen. [id number] facet hypertrophy is seen. There is moderate left-sided and at least moderate right-sided neural foraminal narrowing seen. No significant central canal narrowing is seen. IMPRESSION: Dextroconvex scoliosis and multiple levels of degenerative change are seen. Dictated by: Federico Pope M.D. on 12/15/2018 at 8:46 Approved by: Federico Pope M.D. on 12/15/2018 at 8:55
== END ==
PROVIDERS: PCP Student in an Organized Health Care Education/Training Program; Visit Provider Orthopaedic Surgery
DX: M54.5 Low back pain (principal); M47.816 Spondylosis without myelopathy or radiculopathy, lumbar region; M41.86 Other forms of scoliosis, lumbar region
CPT/HCPCS: 72148

== ENCOUNTER → 2018-12-24 11:11 | Outpatient (CLI) | payer OTHER, SELFPAY ==
--- NOTE | 2018-12-24 | DI.MG.S_ITS ---
BILATERAL DIGITAL SCREENING MAMMOGRAM 3D/2D WITH CAD: 12/24/2018 CLINICAL: Routine screening. Comparison is made to exams dated: 12/14/2016 mammogram, 08/31/2014 mammogram, and 08/28/2012 mammogram - [facility]. The tissue of both breasts is extremely dense, which lowers the sensitivity of mammography. Current study was also evaluated with a Computer Aided Detection (CAD) system. There are benign calcifications in both breasts. No significant masses, calcifications, or other findings are seen in either breast. There has been no significant interval change. IMPRESSION: There is no mammographic evidence of malignancy. A 1 year screening mammogram is recommended. This exam was interpreted at Station ID: [id number]. NOTE: For mammograms, a report in lay terms will be sent to the patient. Approximately 15% of breast malignancies will not be visualized mammographically. In the management of a palpable breast mass, a negative mammogram must not discourage biopsy of a clinically suspicious lesion. Electronically Signed By: Bertha mcfarland/aaron:12/24/2018 15:46:06 letter sent: Normal Exam ACR BI-RADS Category 2: Benign Finding(s) [id number]
== END ==
PROVIDERS: PCP Student in an Organized Health Care Education/Training Program; Visit Provider Student in an Organized Health Care Education/Training Program
DX: Z12.31 Encounter for screening mammogram for malignant neoplasm of breast (principal)
CPT/HCPCS: 77063; 77067

== ENCOUNTER 2019-04-07 09:45 | Outpatient (RCR) | payer OTHER, SELFPAY ==
--- NOTE | 2018-12-18 12:49 | PT.OIE ---
Current Diagnoses Radiculopathy, lumbar region (12/16/18) Difficulty in walking, not elsewhere classified (12/16/18) Abnormal posture (12/16/18) Weakness (12/16/18) Other specified injury of muscle, fascia and tendon of the posterior muscle group at thigh level, left thigh, initial encounter (12/16/18) Past Medical History (Last Reviewed 07/22/18 @ 16:29 by Alivia Ya PA-C) Atrial fibrillation (Chronic 2006) CTS (carpal tunnel syndrome) (Chronic) Cardiomyopathy (Chronic) Hayfever (Chronic 1959) Heart failure, systolic (Chronic) Lichen sclerosus et atrophicus (Chronic 2011) Mitral stenosis (Chronic) Osteoarthritis (Chronic 1996) Osteopenia (Chronic) Osteoporosis (Chronic) Bimalleolar fracture of right ankle (Resolved 2015) Cataract (Resolved) Chicken pox (Resolved 1948) 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) Fractures (Resolved 10/08/07) Measles (Resolved 1948) Past Surgical History (Last Reviewed 07/22/18 @ 16:29 by Alivia Ya PA-C) Anesthesia (Resolved) History of carpal tunnel repair (Resolved 1979) History of carpal tunnel repair (Resolved 03/23/04) History of cataract removal with insertion of prosthetic lens (Resolved 01/02/12) History of cataract removal with insertion of prosthetic lens (Resolved 12/19/11) History of hip replacement (Resolved 05/08/10) History of hip surgery (Resolved 05/16/08) History of hip surgery (Resolved 10/08/07) History of knee replacement (Resolved 02/11/12) History of knee replacement (Resolved 07/19/08) History of nasal surgery (Resolved 10/03/11) History of orthopedic surgery (Resolved 10/17/09) Status post vaginal hysterectomy (Resolved 1974) Provider Visit Care Team Role Provider Type Sai Ott MD Primary Care Provider Physician Specialty: Internal Medicine Address: [address] [place] [address], [id number] Email: Lisa Shi MD Attending Provider Physician Specialty: Orthopedic Surgery Address: [address] [place] [address], [address] Email: [email or web address] Physical Therapy Initial Evaluation PT-OP-A Visit Information Start: 12/16/18 14:33 Freq: Status: Active Protocol: Document 12/16/18 14:33 MICHELLE (Rec: 12/18/18 09:42 [facility] [id number]) Out-Patient Physical Therapy Visit Information Visit Information Visit Type Initial Evaluation Visit Start Time 14:30 Visit Stop Time 15:10 Total Visit Minutes 55 Visit Number 1 Number of CAB STARTER Visits 0 Evaluation Information Evaluation Date 12/16/18 Precautions Precautions PMH: arthritis, history of falls, bilateral TKA's, right MILADY, left hip fracture with ORIF. PT-OP-B Current Condition Start: 12/16/18 14:33 Freq: Status: Active Protocol: Document 12/16/18 14:33 MICHELLE (Rec: 12/16/18 15:37 [facility] [id number]) Current Condition History of Current Condition Onset Date 2 months Current Complaints left hip and thigh pain History of Current Condition Gradual onset worsening left hip and posterior thigh pain, mild increase in LBP. Now with very limited walking due to pain, unable to do yardwork due to pain. Developed abcess in vaginal area, hasn't been able to go to pool since September 2018, plus 2 bladder infections in past couple months; just finished antibiotics yesterday. No orthotics, wears compression stockings knee high meño. Not using any ice or heat, sleeps on back with pillow under knees or in chair . Reports 2 years of occasional tingling left foot. Left knee gives way at times, step to pattern on stairs due to left knee pain Prior Treatments and Tests MRI showed narrowing in spinal canal and L3-4 History of prior Right MILADY, bilaterl TKA's, left ORIF. Future Testing and Treatments Planned getting cortisone shot in lumbar spine Saturday12/23/18 Prior Functional Status Baseline Function- ADL's Independent Baseline Function- Mobility Independent Baseline Function- Gait independent without device, goes hiking with trekking poles Baseline Function- Recreation/Hobbies hiking, kayaking, swimming Current Functional Impairments (Reported) Functional Limitations- ADL's painful, slow Functional Limitations- Mobility/Gait painful Functional Limitations- Work/School retired Functional Limitations- Recreation/ unable due to pain Hobbies Personal Factors Other Personal Factors That May Effect still some drainage from Therapy/Recovery vaginal abcess, unable to go to pool PT-OP-C Subjective Start: 12/16/18 14:33 Freq: Status: Active Protocol: Document 12/16/18 14:33 [facility] (Rec: 12/18/18 09:42 [facility] [id number]) Patient Questionnaires Oswestry Low Back Index Oswestry Score 56 Oswestry Impairment 40 to 59% Impaired (Score 40- 59) OP-PT Pain Assessment Pain Assessment Grid Paper Pain Assessment Grid Completed Yes Location left buttock and posterior thigh pain Intensity 5 lumbar spine Pain Location Details central Intensity 2 Pain Behaviors Pain Behaviors Facial Grimacing Guarding Holding Area Wincing Comments Pain Comments worst pain with standing and walking PT-OP-G Mobility & Gait Start: 12/16/18 14:33 Freq: Status: Active Protocol: Document 12/16/18 14:33 [facility] (Rec: 12/18/18 09:42 [facility] [id number]) OP Mobility Evaluation Bed Mobility Rolling painful Supine to and from Sit painful Transfers Sit to Stand painful Functional Movements Squats braces LE's together OP Gait Assessment Gait Gait Assistance Required: Independent Assistive Devices Assistive Device None Gait Deviations General Gait Pattern Antalgic Decreased Stride Length Decreased Feet Clearance Wide Based Gait Factors Limiting Gait Function Factors Limiting Gait Function Pain PT-OP-J Posture/Palpation/Skin Start: 12/16/18 14:33 Freq: Status: Active Protocol: Document 12/16/18 14:33 [facility] (Rec: 12/18/18 09:42 [facility] [id number]) Posture Evaluation Position Standing Head/C-Spine Posture Forward Head T-Spine Posture Fixed Scoliosis on (R) Increased Kyphosis L-Spine Posture Flattened Scapula Posture (L) Protracted (R) Protracted Arm Posture (L) Internally Rotated (R) Internally Rotated Hip Posture (L) Flexed (R) Flexed (L) Externally Rotated (R) Externally Rotated Knee Posture (L) Genu Valgus Palpation Assessment Location left piriformis Palpation Findings Tenderness left greater trochanter\ Palpation Findings Tenderness Skin Assessment Other Assessments Skin Assessment Comments skin intact lumbar spine, hip and buttock PT-OP-K Range of Motion Start: 12/16/18 14:33 Freq: Status: Active Protocol: Document 12/16/18 14:33 SAK (Rec: 12/18/18 09:42 [facility] [id number]) Lumbar Spine Range of Motion Lumbar Spine Active Testing Position Standing Flexion 20 Extension 0 Rotation Left 15 Rotation Right 15 Lateral Flexion Left 35 Lateral Flexion Right 30 ROM Limitations Soft Tissue Tightness Pain Hip Goniometric Range of Motion Hip Left Hip ROM WFL Yes Flexion w/Knee Flexed 90 Straight Leg Raise 65 Extension 0 Abduction 25 Internal Rotation 15 External Rotation 55 right Testing Position Supine Flexion w/Knee Flexed 100 Straight Leg Raise 65 Extension 0 Abduction 25 Internal Rotation 20 External Rotation 55 Hip ROM Limitations Hip ROM Limitations Pain Comments unable to hold left LE in SLR, pain with all hip motions Knee Goniometric Range of Motion Knee meño Knee ROM WFL Yes Ankle and Foot Goniometric Range of Motion Ankle and Foot meño Ankle/Foot ROM WFL Yes PT-OP-L Special Tests Start: 12/16/18 14:33 Freq: Status: Active Protocol: Document 12/16/18 14:33 SAK (Rec: 12/18/18 09:42 [facility]AK [id number]) Special Tests Lumbar Spine Special Tests Compression Test Results negative Slump Test Results negative Hip Special Tests Straight Leg Raise Test Results positive left for pain Piriformis Test Results positive for pain left PT-OP-M Strength Start: 12/16/18 14:33 Freq: Status: Active Protocol: Document 12/16/18 14:33 SAK (Rec: 12/18/18 09:42 [facility] [id number]) Trunk Strength Trunk Manual Muscle Testing Testing Position Supine Flexion 3+ Fair+ Extension 4- Good- Core Stabilization poor activation of TrA Hip Strength Hip Manual Muscle Testing Left Flexion (L2) 3+ Fair+ Extension (S1) 2+ Poor+ Abduction 3- Fair- External Rotation 3- Fair- Internal Rotation 3+ Fair+ Right Flexion (L2) 4 Good Extension (S1) 3- Fair- Abduction 4- Good- Adduction 3 Fair External Rotation 4 Good Internal Rotation 4+ Good+ Knee Strength Knee Manual Muscle Testing meño Flexion (S2) 4+ Good+ Extension (L3) 4+ Good+ Ankle/Foot Strength Ankle and Foot Manual Muscle Testing meño Dorsiflexion (L4) 4+ Good+ Plantarflexion (S1) 4+ Good+ PT-OP-Q Treatments Start: 12/16/18 14:33 Freq: Status: Active Protocol: Document 12/16/18 14:33 SAK (Rec: 12/18/18 09:42 SAK [id number]) Self-Care/Home Management Treatment Education Patient Education Home Exercise Program Pain Management Activities Self-Care/Home Management Activities Use cane or trekking poles for gait to prevent limping PT-OP-R Modalities Start: 12/16/18 14:33 Freq: Status: Active Protocol: Document 12/16/18 14:33 SAK (Rec: 12/18/18 09:42 SAK [id number]) Hot Pack/Cold Pack Treatment Cold Pack Location left hip and lumbar spine Patient Position Sidelying Treatment Duration (minutes) 10 Patient Tolerance Good PT-OP-T Assessment and Plan Start: 12/16/18 14:33 Freq: Status: Active Protocol: Document 12/16/18 14:33 SAK (Rec: 12/18/18 09:42 SAK [id number]) Physical Therapy Assessment Rehab Potential Rehabilitation Potential Good Evaluation Complexity Number of Personal Factors/Comorbidities 3 or More Number of Body Systems Impaired 3 Clinical Presentation at Evaluation Evolving Impairments Impairments Functional Mobility Gait Pain Strength Goals Four Impairment weakness bilateral hips and core Short Term Goal (STG) Patient to be independent and compliant with HEP with ongoing progression STG Duration 01/20/19 Penitentiary Goal (LTG) Patient to demonstrate core and hip muscle strength of at least 4+/5 Three Impairment functional mobility and activity tolerance [place] 56% Short Term Goal (STG) Decrease Oswestry disability index score to no greater than 40% STG Duration 01/20/19 Transport Operations Inspector Goal (LTG) Decrease Oswestry disability index score to no greater than 20% and return to her usual activities LTG Duration 03/18/19 Two Impairment antalgic gait Short Term Goal (STG) Patient able to walk with minimal limp using least restrictive assistive device indoors STG Duration 01/20/19 Penitentiary Goal (LTG) Patient able to walk in the house with no device without limp, and with least restrictive device with outdoor gait LTG Duration 03/18/19 One Impairment pain Short Term Goal (STG) decrease pain to no greater than 3/10 STG Duration 01/20/19 Transport Operations Inspector Goal (LTG) decrease pain to no greater than 2/10 with all usual activities LTG Duration 03/18/19 Assessment Summary Assessment Patient presents to physical therapy with function-limiting LBP and left buttock and lateral hip pain. She has a complicated medical history of bilateral TKA's, right MILADY, and fractured left hip repaired with ORIF. Also has history of LBP and history of falls. Significant findings in evaluation include postural asymmetry and dysfunction with scoliosis, forward flexed posture. She has weakness throughout her core and hips left greater than right. Pain worst with weight-bearing and gait with moderate to severe limp. She would benefit from physical therapy to decrease her pain, improve her postural alignment and strength, improve her functional mobility and return her to her previously very active lifestyle. As soon as her abcess is healed recommend aquatic therapy for therapeutic exercise in a gravity minimized and eliminated environment. Physical Therapy Plan Frequency and Duration Frequency of Treatment 2x/Week Duration of Treatment 12 wks Plan of Care Start Date 12/16/18 Plan of Care End Date 03/18/19 Therapeutic Interventions Therapeutic Interventions Aquatic Therapy Gait Training Home Exercise Program Manual Therapy Neuromuscular Re-education Patient/Caregiver Education Self-Care/Home Management Soft Tissue Mobilization Taping Therapeutic Activities Therapeutic Exercises Modalities Cold Pack/Ice Massage Electric Stimulation Hot Packs Iontophoresis Traction- Mechanical Ultrasound Next Visit Focus/Plan Next Note Type Treatment Note Next Visit Plan Review HEP, gentle ther ex progression, trial iontophoresis left hip.
--- NOTE | 2018-12-18 12:50 | PT.OPPOC ---
Current Diagnoses Radiculopathy, lumbar region (12/16/18) Difficulty in walking, not elsewhere classified (12/16/18) Abnormal posture (12/16/18) Weakness (12/16/18) Other specified injury of muscle, fascia and tendon of the posterior muscle group at thigh level, left thigh, initial encounter (12/16/18) Provider Visit Care Team Role Provider Type Sai Ott MD Primary Care Provider Physician Specialty: Internal Medicine Address: [address] [place] [address], [id number] Email: Lisa Shi MD Attending Provider Physician Specialty: Orthopedic Surgery Address: [address] [place] [address], [id number] Email: [email or web address] Plan Of Care PT-OP-T Assessment and Plan Start: 12/16/18 14:33 Freq: Status: Active Protocol: Document 12/16/18 14:33 [facility] (Rec: 12/18/18 09:42 [facility] [id number]) Physical Therapy Assessment Rehab Potential Rehabilitation Potential Good Evaluation Complexity Number of Personal Factors/Comorbidities 3 or More Number of Body Systems Impaired 3 Clinical Presentation at Evaluation Evolving Impairments Impairments Functional Mobility Gait Pain Strength Goals Four Impairment weakness bilateral hips and core Short Term Goal (STG) Patient to be independent and compliant with HEP with ongoing progression STG Duration 01/20/19 [employer] Director Goal (LTG) Patient to demonstrate core and hip muscle strength of at least 4+/5 Three Impairment functional mobility and activity tolerance Owestry 56% Short Term Goal (STG) Decrease Oswestry disability index score to no greater than 40% STG Duration 01/20/19 [employer] Director Goal (LTG) Decrease Oswestry disability index score to no greater than 20% and return to her usual activities LTG Duration 03/18/19 Two Impairment antalgic gait Short Term Goal (STG) Patient able to walk with minimal limp using least restrictive assistive device indoors STG Duration 01/20/19 Assisted Goal (LTG) Patient able to walk in the house with no device without limp, and with least restrictive device with outdoor gait LTG Duration 03/18/19 One Impairment pain Short Term Goal (STG) decrease pain to no greater than 3/10 STG Duration 01/20/19 Assisted Goal (LTG) decrease pain to no greater than 2/10 with all usual activities LTG Duration 03/18/19 Assessment Summary Assessment Patient presents to physical therapy with function-limiting LBP and left buttock and lateral hip pain. She has a complicated medical history of bilateral TKA's, right MILADY, and fractured left hip repaired with ORIF. Also has history of LBP and history of falls. Significant findings in evaluation include postural asymmetry and dysfunction with scoliosis, forward flexed posture. She has weakness throughout her core and hips left greater than right. Pain worst with weight-bearing and gait with moderate to severe limp. She would benefit from physical therapy to decrease her pain, improve her postural alignment and strength, improve her functional mobility and return her to her previously very active lifestyle. As soon as her abcess is healed recommend aquatic therapy for therapeutic exercise in a gravity minimized and eliminated environment. Physical Therapy Plan Frequency and Duration Frequency of Treatment 2x/Week Duration of Treatment 12 wks Plan of Care Start Date 12/16/18 Plan of Care End Date 03/18/19 Therapeutic Interventions Therapeutic Interventions Aquatic Therapy Gait Training Home Exercise Program Manual Therapy Neuromuscular Re-education Patient/Caregiver Education Self-Care/Home Management Soft Tissue Mobilization Taping Therapeutic Activities Therapeutic Exercises Modalities Cold Pack/Ice Massage Electric Stimulation Hot Packs Iontophoresis Traction- Mechanical Ultrasound Next Visit Focus/Plan Next Note Type Treatment Note Next Visit Plan Review HEP, gentle ther ex progression, trial iontophoresis left hip. Plan of Care Dates Plan of Care Start Date 12/16/18 Plan of Care End Date 03/18/19 Please Sign and Return: I have reviewed this Plan of Care and certify that the skilled therapy services above are required to meet the patient?s needs. Physician Signature Date Printed Name and Credentials Clinical Instructor Signature Printed Name and Credentials
--- NOTE | 2018-12-18 14:55 | PT.OTN ---
Current Diagnoses Radiculopathy, lumbar region (12/18/18) Difficulty in walking, not elsewhere classified (12/18/18) Abnormal posture (12/18/18) Weakness (12/18/18) Other specified injury of muscle, fascia and tendon of the posterior muscle group at thigh level, left thigh, initial encounter (12/18/18) Physical Therapy Treatment Note PT-OP-A Visit Information Start: 12/16/18 14:33 Freq: Status: Active Protocol: Document 12/18/18 14:55 [facility] (Rec: 12/21/18 13:06 [facility] [id number]) Out-Patient Physical Therapy Visit Information Visit Information Visit Type Treatment Note Visit Start Time 14:30 Visit Stop Time 15:25 Total Visit Minutes 55 Visit Number 2 Number of REAL ESTATE ACQUISITION ANALYST Visits 0 Evaluation Information Evaluation Date 12/16/18 Precautions Precautions PMH: arthritis, history of falls, bilateral TKA's, right MILADY, left hip fracture with ORIF. PT-OP-B Current Condition Start: 12/16/18 14:33 Freq: Status: Active Protocol: Document 12/18/18 14:55 [facility] (Rec: 12/21/18 13:06 [facility] [id number]) Current Condition History of Current Condition Onset Date 2 months Current Complaints left hip and thigh pain History of Current Condition Gradual onset worsening left hip and posterior thigh pain, mild increase in LBP. Now with very limited walking due to pain, unable to do yardwork due to pain. Developed abcess in vaginal area, hasn't been able to go to pool since September 2018, plus 2 bladder infections in past couple months; just finished antibiotics yesterday. No orthotics, wears compression stockings knee high meño. Not using any ice or heat, sleeps on back with pillow under knees or in chair . Reports 2 years of occasional tingling left foot. Left knee gives way at times, step to pattern on stairs due to left knee pain Prior Treatments and Tests MRI showed narrowing in spinal canal and L3-4 History of prior Right MILADY, bilaterl TKA's, left ORIF. Future Testing and Treatments Planned getting cortisone shot in lumbar spine Saturday12/23/18 Personal Factors Other Personal Factors That May Effect Muscle soreness after Therapy/Recovery evaluation PT-OP-C Subjective Start: 12/16/18 14:33 Freq: Status: Active Protocol: Document 12/16/18 14:33 [facility] (Rec: 12/18/18 09:42 [facility] [id number]) Patient Questionnaires Oswestry Low Back Index Oswestry Score 56 Oswestry Impairment 40 to 59% Impaired (Score 40- 59) OP-PT Pain Assessment Pain Assessment Grid Paper Pain Assessment Grid Completed Yes Location left buttock and posterior thigh pain Intensity 5 lumbar spine Pain Location Details central Intensity 2 Pain Behaviors Pain Behaviors Facial Grimacing Guarding Holding Area Wincing Comments Pain Comments worst pain with standing and walking PT-OP-G Mobility & Gait Start: 12/16/18 14:33 Freq: Status: Active Protocol: Document 12/16/18 14:33 [facility] (Rec: 12/18/18 09:42 [facility] [id number]) OP Mobility Evaluation Bed Mobility Rolling painful Supine to and from Sit painful Transfers Sit to Stand painful Functional Movements Squats braces LE's together OP Gait Assessment Gait Gait Assistance Required: Independent Assistive Devices Assistive Device None Gait Deviations General Gait Pattern Antalgic Decreased Stride Length Decreased Feet Clearance Wide Based Gait Factors Limiting Gait Function Factors Limiting Gait Function Pain PT-OP-J Posture/Palpation/Skin Start: 12/16/18 14:33 Freq: Status: Active Protocol: Document 12/16/18 14:33 [facility] (Rec: 12/18/18 09:42 [facility] [id number]) Posture Evaluation Position Standing Head/C-Spine Posture Forward Head T-Spine Posture Fixed Scoliosis on (R) Increased Kyphosis L-Spine Posture Flattened Scapula Posture (L) Protracted (R) Protracted Arm Posture (L) Internally Rotated (R) Internally Rotated Hip Posture (L) Flexed (R) Flexed (L) Externally Rotated (R) Externally Rotated Knee Posture (L) Genu Valgus Palpation Assessment Location left piriformis Palpation Findings Tenderness left greater trochanter\ Palpation Findings Tenderness Skin Assessment Other Assessments Skin Assessment Comments skin intact lumbar spine, hip and buttock PT-OP-K Range of Motion Start: 12/16/18 14:33 Freq: Status: Active Protocol: Document 12/16/18 14:33 [facility] (Rec: 12/18/18 09:42 [facility] [id number]) Lumbar Spine Range of Motion Lumbar Spine Active Testing Position Standing Flexion 20 Extension 0 Rotation Left 15 Rotation Right 15 Lateral Flexion Left 35 Lateral Flexion Right 30 ROM Limitations Soft Tissue Tightness Pain Hip Goniometric Range of Motion Hip Left Hip ROM WFL Yes Flexion w/Knee Flexed 90 Straight Leg Raise 65 Extension 0 Abduction 25 Internal Rotation 15 External Rotation 55 right Testing Position Supine Flexion w/Knee Flexed 100 Straight Leg Raise 65 Extension 0 Abduction 25 Internal Rotation 20 External Rotation 55 Hip ROM Limitations Hip ROM Limitations Pain Comments unable to hold left LE in SLR, pain with all hip motions Knee Goniometric Range of Motion Knee meño Knee ROM WFL Yes Ankle and Foot Goniometric Range of Motion Ankle and Foot meño Ankle/Foot ROM WFL Yes PT-OP-L Special Tests Start: 12/16/18 14:33 Freq: Status: Active Protocol: Document 12/16/18 14:33 [facility] (Rec: 12/18/18 09:42 [facility] [id number]) Special Tests Lumbar Spine Special Tests Compression Test Results negative Slump Test Results negative Hip Special Tests Straight Leg Raise Test Results positive left for pain Piriformis Test Results positive for pain left PT-OP-M Strength Start: 12/16/18 14:33 Freq: Status: Active Protocol: Document 12/16/18 14:33 [facility] (Rec: 12/18/18 09:42 [facility] [id number]) Trunk Strength Trunk Manual Muscle Testing Testing Position Supine Flexion 3+ Fair+ Extension 4- Good- Core Stabilization poor activation of TrA Hip Strength Hip Manual Muscle Testing Left Flexion (L2) 3+ Fair+ Extension (S1) 2+ Poor+ Abduction 3- Fair- External Rotation 3- Fair- Internal Rotation 3+ Fair+ Right Flexion (L2) 4 Good Extension (S1) 3- Fair- Abduction 4- Good- Adduction 3 Fair External Rotation 4 Good Internal Rotation 4+ Good+ Knee Strength Knee Manual Muscle Testing meño Flexion (S2) 4+ Good+ Extension (L3) 4+ Good+ Ankle/Foot Strength Ankle and Foot Manual Muscle Testing meño Dorsiflexion (L4) 4+ Good+ Plantarflexion (S1) 4+ Good+ PT-OP-Q Treatments Start: 12/16/18 14:33 Freq: Status: Active Protocol: Document 12/18/18 14:55 [facility] (Rec: 12/21/18 13:06 [facility] [id number]) Cardio Equipment Recumbent Stepper (Sci-Fit) Duration (Minutes) 5 Resistance 1.5 Other emphasis on neutral LE alignment Gym Equipment Shuttle Recovery Unilateral Squats Resistance 37# Shuttle Recovery Platform Stable Bilateral Squats Resistance 62# Shuttle Recovery Platform Stable Therapeutic Exercises Supine Exercises TrA with gluteal isometric Reps/Minutes 10x TrA with hip ab/ER Reps/Minutes 10x TrA with ball squeeze Reps/Minutes 10x TrA activation Reps/Minutes 5x Standing Exercises step-up Reps/Minutes 10x Comments emphasis on gluteal activation weight shift with gluteal activation Reps/Minutes 10x postural isometric Reps/Minutes 10x Manual Therapy Treatment Soft Tissue Mobilization left IT band Mobilization Type Rolling Strumming Intensity/Depth Moderate Body Position Sidelying PT-OP-R Modalities Start: 12/16/18 14:33 Freq: Status: Active Protocol: Document 12/18/18 14:55 [facility] (Rec: 12/21/18 13:06 [facility] [id number]) Hot Pack/Cold Pack Treatment Cold Pack Location left hip and lumbar spine Patient Position Sidelying Treatment Duration (minutes) 10 Patient Tolerance Good PT-OP-T Assessment and Plan Start: 12/16/18 14:33 Freq: Status: Active Protocol: Document 12/18/18 14:55 [facility] (Rec: 12/18/18 15:07 [facility] [id number]) Physical Therapy Assessment Goals Four Impairment weakness bilateral hips and core Short Term Goal (STG) Patient to be independent and compliant with HEP with ongoing progression STG Duration 01/20/19 Supervising Librarian Goal (LTG) Patient to demonstrate core and hip muscle strength of at least 4+/5 Three Impairment functional mobility and activity tolerance [place] 56% Short Term Goal (STG) Decrease Oswestry disability index score to no greater than 40% STG Duration 01/20/19 Supervising Librarian Goal (LTG) Decrease Oswestry disability index score to no greater than 20% and return to her usual activities LTG Duration 03/18/19 Two Impairment antalgic gait Short Term Goal (STG) Patient able to walk with minimal limp using least restrictive assistive device indoors STG Duration 01/20/19 [facility] Goal (LTG) Patient able to walk in the house with no device without limp, and with least restrictive device with outdoor gait LTG Duration 03/18/19 One Impairment pain Short Term Goal (STG) decrease pain to no greater than 3/10 STG Duration 01/20/19 Supervising Librarian Goal (LTG) decrease pain to no greater than 2/10 with all usual activities LTG Duration 03/18/19 Assessment Summary Assessment Ana M has difficulty with functional hip stabilization, responded well to verbal, manual, and visual cues for correction. Much time with functional ther ex focused on correct muscle activation sequencing. Reported muscle soreness Physical Therapy Plan Frequency and Duration Frequency of Treatment 2x/Week Duration of Treatment 12 wks Plan of Care Start Date 12/16/18 Plan of Care End Date 03/18/19 Therapeutic Interventions Therapeutic Interventions Aquatic Therapy Gait Training Home Exercise Program Manual Therapy Neuromuscular Re-education Patient/Caregiver Education Self-Care/Home Management Soft Tissue Mobilization Taping Therapeutic Activities Therapeutic Exercises Modalities Cold Pack/Ice Massage Electric Stimulation Hot Packs Iontophoresis Traction- Mechanical Ultrasound Next Visit Focus/Plan Next Note Type Treatment Note Next Visit Plan evaluate response to today's treatment, progress as tolerated.
--- NOTE | 2018-12-22 17:12 | PT.OTN ---
Current Diagnoses Radiculopathy, lumbar region (12/22/18) Difficulty in walking, not elsewhere classified (12/22/18) Abnormal posture (12/22/18) Weakness (12/22/18) Other specified injury of muscle, fascia and tendon of the posterior muscle group at thigh level, left thigh, initial encounter (12/22/18) Physical Therapy Treatment Note PT-OP-A Visit Information Start: 12/16/18 14:33 Freq: Status: Active Protocol: Document 12/22/18 09:05 MICHELLE (Rec: 12/22/18 09:43 [facility] [id number]) Out-Patient Physical Therapy Visit Information Visit Information Visit Type Treatment Note Visit Start Time 14:30 Visit Stop Time 15:25 Total Visit Minutes 55 Visit Number 2 Number of SPECIALTY MOLDER Visits 0 Evaluation Information Evaluation Date 12/16/18 Precautions Precautions PMH: arthritis, history of falls, bilateral TKA's, right MILADY, left hip fracture with ORIF. PT-OP-B Current Condition Start: 12/16/18 14:33 Freq: Status: Active Protocol: Document 12/18/18 14:55 [facility] (Rec: 12/21/18 13:06 [facility] [id number]) Current Condition History of Current Condition Onset Date 2 months Current Complaints left hip and thigh pain History of Current Condition Gradual onset worsening left hip and posterior thigh pain, mild increase in LBP. Now with very limited walking due to pain, unable to do yardwork due to pain. Developed abcess in vaginal area, hasn't been able to go to pool since September 2018, plus 2 bladder infections in past couple months; just finished antibiotics yesterday. No orthotics, wears compression stockings knee high meño. Not using any ice or heat, sleeps on back with pillow under knees or in chair . Reports 2 years of occasional tingling left foot. Left knee gives way at times, step to pattern on stairs due to left knee pain Prior Treatments and Tests MRI showed narrowing in spinal canal and L3-4 History of prior Right MILADY, bilaterl TKA's, left ORIF. Future Testing and Treatments Planned getting cortisone shot in lumbar spine Saturday12/23/18 Personal Factors Other Personal Factors That May Effect Muscle soreness after Therapy/Recovery evaluation PT-OP-C Subjective Start: 12/16/18 14:33 Freq: Status: Active Protocol: Document 12/22/18 09:05 [facility] (Rec: 12/22/18 17:11 [facility] [id number]) OP-PT Subjective Patient Comments Patient Comments Pain decreased, improving awareness of her alignment and gluteal activation. Was able to walk 1 mile; slowly on level ground. PT-OP-G Mobility & Gait Start: 12/16/18 14:33 Freq: Status: Active Protocol: Document 12/16/18 14:33 [facility] (Rec: 12/18/18 09:42 [facility] [id number]) OP Mobility Evaluation Bed Mobility Rolling painful Supine to and from Sit painful Transfers Sit to Stand painful Functional Movements Squats braces LE's together OP Gait Assessment Gait Gait Assistance Required: Independent Assistive Devices Assistive Device None Gait Deviations General Gait Pattern Antalgic Decreased Stride Length Decreased Feet Clearance Wide Based Gait Factors Limiting Gait Function Factors Limiting Gait Function Pain PT-OP-J Posture/Palpation/Skin Start: 12/16/18 14:33 Freq: Status: Active Protocol: Document 12/16/18 14:33 [facility] (Rec: 12/18/18 09:42 [facility] [id number]) Posture Evaluation Position Standing Head/C-Spine Posture Forward Head T-Spine Posture Fixed Scoliosis on (R) Increased Kyphosis L-Spine Posture Flattened Scapula Posture (L) Protracted (R) Protracted Arm Posture (L) Internally Rotated (R) Internally Rotated Hip Posture (L) Flexed (R) Flexed (L) Externally Rotated (R) Externally Rotated Knee Posture (L) Genu Valgus Palpation Assessment Location left piriformis Palpation Findings Tenderness left greater trochanter\ Palpation Findings Tenderness Skin Assessment Other Assessments Skin Assessment Comments skin intact lumbar spine, hip and buttock PT-OP-K Range of Motion Start: 12/16/18 14:33 Freq: Status: Active Protocol: Document 12/16/18 14:33 [facility] (Rec: 12/18/18 09:42 [facility] [id number]) Lumbar Spine Range of Motion Lumbar Spine Active Testing Position Standing Flexion 20 Extension 0 Rotation Left 15 Rotation Right 15 Lateral Flexion Left 35 Lateral Flexion Right 30 ROM Limitations Soft Tissue Tightness Pain Hip Goniometric Range of Motion Hip Left Hip ROM WFL Yes Flexion w/Knee Flexed 90 Straight Leg Raise 65 Extension 0 Abduction 25 Internal Rotation 15 External Rotation 55 right Testing Position Supine Flexion w/Knee Flexed 100 Straight Leg Raise 65 Extension 0 Abduction 25 Internal Rotation 20 External Rotation 55 Hip ROM Limitations Hip ROM Limitations Pain Comments unable to hold left LE in SLR, pain with all hip motions Knee Goniometric Range of Motion Knee meño Knee ROM WFL Yes Ankle and Foot Goniometric Range of Motion Ankle and Foot meño Ankle/Foot ROM WFL Yes PT-OP-L Special Tests Start: 12/16/18 14:33 Freq: Status: Active Protocol: Document 12/16/18 14:33 [facility] (Rec: 12/18/18 09:42 [facility] [id number]) Special Tests Lumbar Spine Special Tests Compression Test Results negative Slump Test Results negative Hip Special Tests Straight Leg Raise Test Results positive left for pain Piriformis Test Results positive for pain left PT-OP-M Strength Start: 12/16/18 14:33 Freq: Status: Active Protocol: Document 12/16/18 14:33 [facility] (Rec: 12/18/18 09:42 [facility] [id number]) Trunk Strength Trunk Manual Muscle Testing Testing Position Supine Flexion 3+ Fair+ Extension 4- Good- Core Stabilization poor activation of TrA Hip Strength Hip Manual Muscle Testing Left Flexion (L2) 3+ Fair+ Extension (S1) 2+ Poor+ Abduction 3- Fair- External Rotation 3- Fair- Internal Rotation 3+ Fair+ Right Flexion (L2) 4 Good Extension (S1) 3- Fair- Abduction 4- Good- Adduction 3 Fair External Rotation 4 Good Internal Rotation 4+ Good+ Knee Strength Knee Manual Muscle Testing meño Flexion (S2) 4+ Good+ Extension (L3) 4+ Good+ Ankle/Foot Strength Ankle and Foot Manual Muscle Testing meño Dorsiflexion (L4) 4+ Good+ Plantarflexion (S1) 4+ Good+ PT-OP-Q Treatments Start: 12/16/18 14:33 Freq: Status: Active Protocol: Document 12/22/18 09:05 [facility] (Rec: 12/22/18 09:43 [facility] [id number]) Cardio Equipment Recumbent Stepper (Sci-Fit) Duration (Minutes) 8 Resistance 2.0 Other emphasis on neutral LE alignment Gym Equipment Shuttle Recovery Unilateral Squats Resistance 37# Shuttle Recovery Platform Stable Bilateral Squats Resistance 62# Shuttle Recovery Platform Stable Sport Cord green Exercise Details forward gait Reps/Duration 5 min Comments mirror for visual feedback, plus verbal and manual cues Therapeutic Exercises Supine Exercises TrA with gluteal isometric Reps/Minutes 10x TrA with hip ab/ER Reps/Minutes 10x TrA with ball squeeze Reps/Minutes 10x TrA activation Reps/Minutes 5x Sitting Exercises sit to stand Reps/Minutes 5x Comments raised hi-lo table Standing Exercises SLS Comments UE support, mirror for visual feedback step-up Reps/Minutes 10x Comments emphasis on gluteal activation weight shift with gluteal activation Reps/Minutes 10x postural isometric Reps/Minutes 10x Gait Training Gait Activity gait with cane Device Used SPC Treatment Focus gluteal activation, upright posture Manual Therapy Treatment Soft Tissue Mobilization left IT band Mobilization Type Rolling Strumming Intensity/Depth Moderate Body Position Sidelying PT-OP-R Modalities Start: 12/16/18 14:33 Freq: Status: Active Protocol: Document 12/22/18 09:05 [facility] (Rec: 12/22/18 09:43 [facility] [id number]) Hot Pack/Cold Pack Treatment Hot Pack Location left hip and lumbar spine Treatment Duration (minutes) 15 PT-OP-T Assessment and Plan Start: 12/16/18 14:33 Freq: Status: Active Protocol: Document 12/22/18 09:05 [facility] (Rec: 12/22/18 09:43 [facility] [id number]) Physical Therapy Assessment Goals Four Impairment weakness bilateral hips and core Short Term Goal (STG) Patient to be independent and compliant with HEP with ongoing progression STG Duration 01/20/19 Snf Goal (LTG) Patient to demonstrate core and hip muscle strength of at least 4+/5 Three Impairment functional mobility and activity tolerance Owestry 56% Short Term Goal (STG) Decrease Oswestry disability index score to no greater than 40% STG Duration 01/20/19 Battery Wrecker Operator Goal (LTG) Decrease Oswestry disability index score to no greater than 20% and return to her usual activities LTG Duration 03/18/19 Two Impairment antalgic gait Short Term Goal (STG) Patient able to walk with minimal limp using least restrictive assistive device indoors STG Duration 01/20/19 Snf Goal (LTG) Patient able to walk in the house with no device without limp, and with least restrictive device with outdoor gait LTG Duration 03/18/19 One Impairment pain Short Term Goal (STG) decrease pain to no greater than 3/10 STG Duration 01/20/19 Snf Goal (LTG) decrease pain to no greater than 2/10 with all usual activities LTG Duration 03/18/19 Assessment Summary Assessment Decreased pain, able to walk 1 mile. Having spinal injection tomorrow Physical Therapy Plan Frequency and Duration Frequency of Treatment 2x/Week Duration of Treatment 12 wks Plan of Care Start Date 12/16/18 Plan of Care End Date 03/18/19 Therapeutic Interventions Therapeutic Interventions Aquatic Therapy Gait Training Home Exercise Program Manual Therapy Neuromuscular Re-education Patient/Caregiver Education Self-Care/Home Management Soft Tissue Mobilization Taping Therapeutic Activities Therapeutic Exercises Modalities Cold Pack/Ice Massage Electric Stimulation Hot Packs Iontophoresis Traction- Mechanical Ultrasound Next Visit Focus/Plan Next Note Type Treatment Note
--- NOTE | 2018-12-29 17:16 | PT.OTN ---
Current Diagnoses Radiculopathy, lumbar region (12/29/18) Difficulty in walking, not elsewhere classified (12/29/18) Abnormal posture (12/29/18) Weakness (12/29/18) Other specified injury of muscle, fascia and tendon of the posterior muscle group at thigh level, left thigh, initial encounter (12/29/18) Physical Therapy Treatment Note PT-OP-A Visit Information Start: 12/16/18 14:33 Freq: Status: Active Protocol: Document 12/29/18 08:44 [facility] (Rec: 12/29/18 09:23 [facility] [id number]) Out-Patient Physical Therapy Visit Information Visit Information Visit Type Treatment Note Visit Start Time 14:30 Visit Stop Time 15:25 Total Visit Minutes 55 Visit Number 4 Number of SIMULATION SOFTWARE ENGINEER Visits 0 Evaluation Information Evaluation Date 12/16/18 Precautions Precautions PMH: arthritis, history of falls, bilateral TKA's, right MILADY, left hip fracture with ORIF. PT-OP-B Current Condition Start: 12/16/18 14:33 Freq: Status: Active Protocol: Document 12/18/18 14:55 [facility] (Rec: 12/21/18 13:06 [facility] [id number]) Current Condition History of Current Condition Onset Date 2 months Current Complaints left hip and thigh pain History of Current Condition Gradual onset worsening left hip and posterior thigh pain, mild increase in LBP. Now with very limited walking due to pain, unable to do yardwork due to pain. Developed abcess in vaginal area, hasn't been able to go to pool since September 2018, plus 2 bladder infections in past couple months; just finished antibiotics yesterday. No orthotics, wears compression stockings knee high meño. Not using any ice or heat, sleeps on back with pillow under knees or in chair . Reports 2 years of occasional tingling left foot. Left knee gives way at times, step to pattern on stairs due to left knee pain Prior Treatments and Tests MRI showed narrowing in spinal canal and L3-4 History of prior Right MILADY, bilaterl TKA's, left ORIF. Future Testing and Treatments Planned getting cortisone shot in lumbar spine Saturday12/23/18 Personal Factors Other Personal Factors That May Effect Muscle soreness after Therapy/Recovery evaluation PT-OP-C Subjective Start: 12/16/18 14:33 Freq: Status: Active Protocol: Document 12/29/18 08:44 [facility] (Rec: 12/29/18 09:23 [facility] [id number]) OP-PT Subjective Patient Comments Patient [place] the [place], more sore today. PT-OP-G Mobility & Gait Start: 12/16/18 14:33 Freq: Status: Active Protocol: Document 12/16/18 14:33 [facility] (Rec: 12/18/18 09:42 [facility] [id number]) OP Mobility Evaluation Bed Mobility Rolling painful Supine to and from Sit painful Transfers Sit to Stand painful Functional Movements Squats braces LE's together OP Gait Assessment Gait Gait Assistance Required: Independent Assistive Devices Assistive Device None Gait Deviations General Gait Pattern Antalgic Decreased Stride Length Decreased Feet Clearance Wide Based Gait Factors Limiting Gait Function Factors Limiting Gait Function Pain PT-OP-J Posture/Palpation/Skin Start: 12/16/18 14:33 Freq: Status: Active Protocol: Document 12/16/18 14:33 [facility] (Rec: 12/18/18 09:42 [facility] [id number]) Posture Evaluation Position Standing Head/C-Spine Posture Forward Head T-Spine Posture Fixed Scoliosis on (R) Increased Kyphosis L-Spine Posture Flattened Scapula Posture (L) Protracted (R) Protracted Arm Posture (L) Internally Rotated (R) Internally Rotated Hip Posture (L) Flexed (R) Flexed (L) Externally Rotated (R) Externally Rotated Knee Posture (L) Genu Valgus Palpation Assessment Location left piriformis Palpation Findings Tenderness left greater trochanter\ Palpation Findings Tenderness Skin Assessment Other Assessments Skin Assessment Comments skin intact lumbar spine, hip and buttock PT-OP-K Range of Motion Start: 12/16/18 14:33 Freq: Status: Active Protocol: Document 12/16/18 14:33 [facility] (Rec: 12/18/18 09:42 [facility] [id number]) Lumbar Spine Range of Motion Lumbar Spine Active Testing Position Standing Flexion 20 Extension 0 Rotation Left 15 Rotation Right 15 Lateral Flexion Left 35 Lateral Flexion Right 30 ROM Limitations Soft Tissue Tightness Pain Hip Goniometric Range of Motion Hip Left Hip ROM WFL Yes Flexion w/Knee Flexed 90 Straight Leg Raise 65 Extension 0 Abduction 25 Internal Rotation 15 External Rotation 55 right Testing Position Supine Flexion w/Knee Flexed 100 Straight Leg Raise 65 Extension 0 Abduction 25 Internal Rotation 20 External Rotation 55 Hip ROM Limitations Hip ROM Limitations Pain Comments unable to hold left LE in SLR, pain with all hip motions Knee Goniometric Range of Motion Knee meño Knee ROM WFL Yes Ankle and Foot Goniometric Range of Motion Ankle and Foot meño Ankle/Foot ROM WFL Yes PT-OP-L Special Tests Start: 12/16/18 14:33 Freq: Status: Active Protocol: Document 12/16/18 14:33 [facility] (Rec: 12/18/18 09:42 [facility] [id number]) Special Tests Lumbar Spine Special Tests Compression Test Results negative Slump Test Results negative Hip Special Tests Straight Leg Raise Test Results positive left for pain Piriformis Test Results positive for pain left PT-OP-M Strength Start: 12/16/18 14:33 Freq: Status: Active Protocol: Document 12/16/18 14:33 [facility] (Rec: 12/18/18 09:42 [facility] [id number]) Trunk Strength Trunk Manual Muscle Testing Testing Position Supine Flexion 3+ Fair+ Extension 4- Good- Core Stabilization poor activation of TrA Hip Strength Hip Manual Muscle Testing Left Flexion (L2) 3+ Fair+ Extension (S1) 2+ Poor+ Abduction 3- Fair- External Rotation 3- Fair- Internal Rotation 3+ Fair+ Right Flexion (L2) 4 Good Extension (S1) 3- Fair- Abduction 4- Good- Adduction 3 Fair External Rotation 4 Good Internal Rotation 4+ Good+ Knee Strength Knee Manual Muscle Testing meño Flexion (S2) 4+ Good+ Extension (L3) 4+ Good+ Ankle/Foot Strength Ankle and Foot Manual Muscle Testing meño Dorsiflexion (L4) 4+ Good+ Plantarflexion (S1) 4+ Good+ PT-OP-Q Treatments Start: 12/16/18 14:33 Freq: Status: Active Protocol: Document 12/29/18 08:44 [facility] (Rec: 12/29/18 09:23 [facility] [id number]) Cardio Equipment Recumbent Stepper (Sci-Fit) Duration (Minutes) 8 Resistance 2.0 Other emphasis on neutral LE alignment Gym Equipment Shuttle Recovery Unilateral Squats Resistance 50# Shuttle Recovery Platform Stable Reps/Time 2x10 Bilateral Squats Resistance 75# Shuttle Recovery Platform Stable Reps/Time 2x10 Shuttle Balance chains red Details balance Reps/Duration 4 min Comments mirror for visual feedback chains yellow Details standing bal, mini-squats Reps/Duration 5 min Comments mirror for visual feedback for LE alignment Sport Cord green Exercise Details forward and side Reps/Duration 8 min Comments mirror for visual feedback, plus verbal and manual cues Therapeutic Exercises Standing Exercises squats Reps/Minutes 10x Gait Training Gait Activity gait with cane Device Used SPC Treatment Focus gluteal activation, upright posture Manual Therapy Treatment Soft Tissue Mobilization left IT band Mobilization Type Instrument Assisted Intensity/Depth Moderate Body Position Sidelying PT-OP-R Modalities Start: 12/16/18 14:33 Freq: Status: Active Protocol: Document 12/29/18 08:44 [facility] (Rec: 12/29/18 17:16 [facility] [id number]) Hot Pack/Cold Pack Treatment Hot Pack Location left hip and lumbar spine Treatment Duration (minutes) 15 PT-OP-T Assessment and Plan Start: 12/16/18 14:33 Freq: Status: Active Protocol: Document 12/29/18 08:44 [facility] (Rec: 12/29/18 09:23 [facility] [id number]) Physical Therapy Assessment Goals Four Impairment weakness bilateral hips and core Short Term Goal (STG) Patient to be independent and compliant with HEP with ongoing progression STG Duration 01/20/19 Custodial Goal (LTG) Patient to demonstrate core and hip muscle strength of at least 4+/5 Three Impairment functional mobility and activity tolerance Owestry 56% Short Term Goal (STG) Decrease Oswestry disability index score to no greater than 40% STG Duration 01/20/19 Batchmaker Goal (LTG) Decrease Oswestry disability index score to no greater than 20% and return to her usual activities LTG Duration 03/18/19 Two Impairment antalgic gait Short Term Goal (STG) Patient able to walk with minimal limp using least restrictive assistive device indoors STG Duration 01/20/19 Batchmaker Goal (LTG) Patient able to walk in the house with no device without limp, and with least restrictive device with outdoor gait LTG Duration 03/18/19 One Impairment pain Short Term Goal (STG) decrease pain to no greater than 3/10 STG Duration 01/20/19 Batchmaker Goal (LTG) decrease pain to no greater than 2/10 with all usual activities LTG Duration 03/18/19 Progress Towards Goals Progress Towards Goals Progressing Toward Goals Assessment Summary Assessment Patient continues to improve her ability to ambulate and activate correct musculature for improved functional mobility and decreased pain. She benefits highly from use of mirror for visual feedback. Benefits from manual treatment of IT band and moist heat. Physical Therapy Plan Frequency and Duration Frequency of Treatment 2x/Week Duration of Treatment 12 wks Plan of Care Start Date 12/16/18 Plan of Care End Date 03/18/19 Therapeutic Interventions Therapeutic Interventions Aquatic Therapy Gait Training Home Exercise Program Manual Therapy Neuromuscular Re-education Patient/Caregiver Education Self-Care/Home Management Soft Tissue Mobilization Taping Therapeutic Activities Therapeutic Exercises Modalities Cold Pack/Ice Massage Electric Stimulation Hot Packs Iontophoresis Traction- Mechanical Ultrasound Next Visit Focus/Plan Next Note Type Treatment Note Next Visit Plan Progress ther ex, emphasis on LE alignment, proper mechanics with functional movement. Add MAYE villa
--- NOTE | 2018-12-31 14:46 | PT.OTN ---
Current Diagnoses Radiculopathy, lumbar region (12/31/18) Difficulty in walking, not elsewhere classified (12/31/18) Abnormal posture (12/31/18) Weakness (12/31/18) Other specified injury of muscle, fascia and tendon of the posterior muscle group at thigh level, left thigh, initial encounter (12/31/18) Physical Therapy Treatment Note PT-OP-A Visit Information Start: 12/16/18 14:33 Freq: Status: Active Protocol: Document 12/31/18 08:42 SAK (Rec: 12/31/18 09:30 [facility] [id number]) Out-Patient Physical Therapy Visit Information Visit Information Visit Type Treatment Note Visit Start Time 08:45 Visit Stop Time 09:42 Total Visit Minutes 57 Visit Number 6 Number of WIRE BRUSHER Visits 0 Evaluation Information Evaluation Date 12/16/18 Precautions Precautions PMH: arthritis, history of falls, bilateral TKA's, right MILADY, left hip fracture with ORIF. PT-OP-B Current Condition Start: 12/16/18 14:33 Freq: Status: Active Protocol: Document 12/18/18 14:55 SAK (Rec: 12/21/18 13:06 [facility] [id number]) Current Condition History of Current Condition Onset Date 2 months Current Complaints left hip and thigh pain History of Current Condition Gradual onset worsening left hip and posterior thigh pain, mild increase in LBP. Now with very limited walking due to pain, unable to do yardwork due to pain. Developed abcess in vaginal area, hasn't been able to go to pool since September 2018, plus 2 bladder infections in past couple months; just finished antibiotics yesterday. No orthotics, wears compression stockings knee high meño. Not using any ice or heat, sleeps on back with pillow under knees or in chair . Reports 2 years of occasional tingling left foot. Left knee gives way at times, step to pattern on stairs due to left knee pain Prior Treatments and Tests MRI showed narrowing in spinal canal and L3-4 History of prior Right MILADY, bilaterl TKA's, left ORIF. Future Testing and Treatments Planned getting cortisone shot in lumbar spine Saturday12/23/18 Personal Factors Other Personal Factors That May Effect Muscle soreness after Therapy/Recovery evaluation PT-OP-C Subjective Start: 12/16/18 14:33 Freq: Status: Active Protocol: Document 12/31/18 08:42 SAK (Rec: 12/31/18 09:30 [facility] [id number]) OP-PT Subjective Patient Comments Patient Comments Not as sore today, though was having left shoulder blade pain until used heat. PT-OP-G Mobility & Gait Start: 12/16/18 14:33 Freq: Status: Active Protocol: Document 12/16/18 14:33 SAK (Rec: 12/18/18 09:42 [facility] [id number]) OP Mobility Evaluation Bed Mobility Rolling painful Supine to and from Sit painful Transfers Sit to Stand painful Functional Movements Squats braces LE's together OP Gait Assessment Gait Gait Assistance Required: Independent Assistive Devices Assistive Device None Gait Deviations General Gait Pattern Antalgic Decreased Stride Length Decreased Feet Clearance Wide Based Gait Factors Limiting Gait Function Factors Limiting Gait Function Pain PT-OP-J Posture/Palpation/Skin Start: 12/16/18 14:33 Freq: Status: Active Protocol: Document 12/16/18 14:33 [facility] (Rec: 12/18/18 09:42 [facility] [id number]) Posture Evaluation Position Standing Head/C-Spine Posture Forward Head T-Spine Posture Fixed Scoliosis on (R) Increased Kyphosis L-Spine Posture Flattened Scapula Posture (L) Protracted (R) Protracted Arm Posture (L) Internally Rotated (R) Internally Rotated Hip Posture (L) Flexed (R) Flexed (L) Externally Rotated (R) Externally Rotated Knee Posture (L) Genu Valgus Palpation Assessment Location left piriformis Palpation Findings Tenderness left greater trochanter\ Palpation Findings Tenderness Skin Assessment Other Assessments Skin Assessment Comments skin intact lumbar spine, hip and buttock PT-OP-K Range of Motion Start: 12/16/18 14:33 Freq: Status: Active Protocol: Document 12/16/18 14:33 SAK (Rec: 12/18/18 09:42 [facility] [id number]) Lumbar Spine Range of Motion Lumbar Spine Active Testing Position Standing Flexion 20 Extension 0 Rotation Left 15 Rotation Right 15 Lateral Flexion Left 35 Lateral Flexion Right 30 ROM Limitations Soft Tissue Tightness Pain Hip Goniometric Range of Motion Hip Left Hip ROM WFL Yes Flexion w/Knee Flexed 90 Straight Leg Raise 65 Extension 0 Abduction 25 Internal Rotation 15 External Rotation 55 right Testing Position Supine Flexion w/Knee Flexed 100 Straight Leg Raise 65 Extension 0 Abduction 25 Internal Rotation 20 External Rotation 55 Hip ROM Limitations Hip ROM Limitations Pain Comments unable to hold left LE in SLR, pain with all hip motions Knee Goniometric Range of Motion Knee meño Knee ROM WFL Yes Ankle and Foot Goniometric Range of Motion Ankle and Foot meño Ankle/Foot ROM WFL Yes PT-OP-L Special Tests Start: 12/16/18 14:33 Freq: Status: Active Protocol: Document 12/16/18 14:33 [facility] (Rec: 12/18/18 09:42 [facility] [id number]) Special Tests Lumbar Spine Special Tests Compression Test Results negative Slump Test Results negative Hip Special Tests Straight Leg Raise Test Results positive left for pain Piriformis Test Results positive for pain left PT-OP-M Strength Start: 12/16/18 14:33 Freq: Status: Active Protocol: Document 12/16/18 14:33 [facility] (Rec: 12/18/18 09:42 [facility] [id number]) Trunk Strength Trunk Manual Muscle Testing Testing Position Supine Flexion 3+ Fair+ Extension 4- Good- Core Stabilization poor activation of TrA Hip Strength Hip Manual Muscle Testing Left Flexion (L2) 3+ Fair+ Extension (S1) 2+ Poor+ Abduction 3- Fair- External Rotation 3- Fair- Internal Rotation 3+ Fair+ Right Flexion (L2) 4 Good Extension (S1) 3- Fair- Abduction 4- Good- Adduction 3 Fair External Rotation 4 Good Internal Rotation 4+ Good+ Knee Strength Knee Manual Muscle Testing meño Flexion (S2) 4+ Good+ Extension (L3) 4+ Good+ Ankle/Foot Strength Ankle and Foot Manual Muscle Testing meño Dorsiflexion (L4) 4+ Good+ Plantarflexion (S1) 4+ Good+ PT-OP-Q Treatments Start: 12/16/18 14:33 Freq: Status: Active Protocol: Document 12/31/18 08:42 [facility] (Rec: 12/31/18 09:30 [facility] [id number]) Cardio Equipment Recumbent Stepper (Sci-Fit) Duration (Minutes) 5 Resistance 2.0 Other emphasis on neutral LE alignment Treadmill Duration (Minutes) 5 Speed 1.2 Incline 0 Other video with patient phone front and back Therapeutic Exercises Supine Exercises ITB stretch Side bilateral hip flex stretch Side bilateral Reps/Minutes 2x Comments side of plinth TrA with march Reps/Minutes 10x Standing Exercises SLS Comments UE support, mirror for visual feedback Gait Training Gait Activity treadmill Comments video with patient phone for reference gait with cane Device Used SPC Treatment Focus gluteal activation, upright posture Comments video taken with patient phone for reference Manual Therapy Treatment Soft Tissue Mobilization left IT band Mobilization Type Instrument Assisted Intensity/Depth Moderate Body Position Sidelying Self-Care/Home Management Treatment Education Other Education review of video of gait, discussion of compensatory patterns and activities/ exercises to address. PT-OP-R Modalities Start: 12/16/18 14:33 Freq: Status: Active Protocol: Document 12/29/18 08:44 [facility] (Rec: 12/29/18 17:16 [facility] [id number]) Hot Pack/Cold Pack Treatment Hot Pack Location left hip and lumbar spine Treatment Duration (minutes) 15 PT-OP-T Assessment and Plan Start: 12/16/18 14:33 Freq: Status: Active Protocol: Document 12/31/18 08:42 [facility] (Rec: 12/31/18 09:30 [facility] [id number]) Physical Therapy Assessment Goals Four Impairment weakness bilateral hips and core Short Term Goal (STG) Patient to be independent and compliant with HEP with ongoing progression STG Duration 01/20/19 Alf Goal (LTG) Patient to demonstrate core and hip muscle strength of at least 4+/5 Three Impairment functional mobility and activity tolerance Owestry 56% Short Term Goal (STG) Decrease Oswestry disability index score to no greater than 40% STG Duration 01/20/19 Machine Hostler Goal (LTG) Decrease Oswestry disability index score to no greater than 20% and return to her usual activities LTG Duration 03/18/19 Two Impairment antalgic gait Short Term Goal (STG) Patient able to walk with minimal limp using least restrictive assistive device indoors STG Duration 01/20/19 Machine Hostler Goal (LTG) Patient able to walk in the house with no device without limp, and with least restrictive device with outdoor gait LTG Duration 03/18/19 One Impairment pain Short Term Goal (STG) decrease pain to no greater than 3/10 STG Duration 01/20/19 Alf Goal (LTG) decrease pain to no greater than 2/10 with all usual activities LTG Duration 03/18/19 Assessment Summary Assessment Video of patient gait very helpful in educating patient in her compensatory gait patterns and she demonstrated good understanding of ex and activities to address. Physical Therapy Plan Frequency and Duration Frequency of Treatment 2x/Week Duration of Treatment 12 wks Plan of Care Start Date 12/16/18 Plan of Care End Date 03/18/19 Therapeutic Interventions Therapeutic Interventions Aquatic Therapy Gait Training Home Exercise Program Manual Therapy Neuromuscular Re-education Patient/Caregiver Education Self-Care/Home Management Soft Tissue Mobilization Taping Therapeutic Activities Therapeutic Exercises Modalities Cold Pack/Ice Massage Electric Stimulation Hot Packs Iontophoresis Traction- Mechanical Ultrasound Next Visit Focus/Plan Next Note Type Treatment Note Next Visit Plan Progress ther ex, emphasis on LE alignment, proper mechanics with functional movement. Add MAYE villa
--- NOTE | 2019-01-15 13:13 | PT.OTN ---
Current Diagnoses Radiculopathy, lumbar region (01/14/19) Difficulty in walking, not elsewhere classified (01/14/19) Abnormal posture (01/14/19) Weakness (01/14/19) Other specified injury of muscle, fascia and tendon of the posterior muscle group at thigh level, left thigh, initial encounter (01/14/19) Physical Therapy Treatment Note PT-OP-A Visit Information Start: 12/16/18 14:33 Freq: Status: Active Protocol: Document 01/14/19 11:00 SAK (Rec: 01/15/19 09:42 [facility] [id number]) Out-Patient Physical Therapy Visit Information Visit Information Visit Type Treatment Note Visit Start Time 11:00 Visit Stop Time 11:45 Total Visit Minutes 45 Visit Number 7 Number of BUNDLE CLERK Visits 0 Evaluation Information Evaluation Date 12/16/18 Precautions Precautions PMH: arthritis, history of falls, bilateral TKA's, right MILADY, left hip fracture with ORIF. PT-OP-B Current Condition Start: 12/16/18 14:33 Freq: Status: Active Protocol: Document 12/18/18 14:55 SAK (Rec: 12/21/18 13:06 [facility] [id number]) Current Condition History of Current Condition Onset Date 2 months Current Complaints left hip and thigh pain History of Current Condition Gradual onset worsening left hip and posterior thigh pain, mild increase in LBP. Now with very limited walking due to pain, unable to do yardwork due to pain. Developed abcess in vaginal area, hasn't been able to go to pool since September 2018, plus 2 bladder infections in past couple months; just finished antibiotics yesterday. No orthotics, wears compression stockings knee high meño. Not using any ice or heat, sleeps on back with pillow under knees or in chair . Reports 2 years of occasional tingling left foot. Left knee gives way at times, step to pattern on stairs due to left knee pain Prior Treatments and Tests MRI showed narrowing in spinal canal and L3-4 History of prior Right MILADY, bilaterl TKA's, left ORIF. Future Testing and Treatments Planned getting cortisone shot in lumbar spine Saturday12/23/18 Personal Factors Other Personal Factors That May Effect Muscle soreness after Therapy/Recovery evaluation PT-OP-C Subjective Start: 12/16/18 14:33 Freq: Status: Active Protocol: Document 01/14/19 11:00 [facility] (Rec: 01/15/19 09:42 [facility] [id number]) OP-PT Subjective Patient Comments Patient Comments Looking forward to starting aquatic PT today. States she has been working hard on her walking, was shocked about how bad I walk after watching the video we took last session . PT-OP-G Mobility & Gait Start: 12/16/18 14:33 Freq: Status: Active Protocol: Document 12/16/18 14:33 [facility] (Rec: 12/18/18 09:42 [facility] [id number]) OP Mobility Evaluation Bed Mobility Rolling painful Supine to and from Sit painful Transfers Sit to Stand painful Functional Movements Squats braces LE's together OP Gait Assessment Gait Gait Assistance Required: Independent Assistive Devices Assistive Device None Gait Deviations General Gait Pattern Antalgic,Decreased Stride Length,Decreased Feet Clearance,Wide Based Gait Factors Limiting Gait Function Factors Limiting Gait Function Pain PT-OP-J Posture/Palpation/Skin Start: 12/16/18 14:33 Freq: Status: Active Protocol: Document 12/16/18 14:33 [facility] (Rec: 12/18/18 09:42 [facility] [id number]) Posture Evaluation Position Standing Head/C-Spine Posture Forward Head T-Spine Posture Fixed Scoliosis on (R), Increased Kyphosis L-Spine Posture Flattened Scapula Posture (L) Protracted,(R) Protracted Arm Posture (L) Internally Rotated,(R) Internally Rotated Hip Posture (L) Flexed,(R) Flexed,(L) Externally Rotated,(R) Externally Rotated Knee Posture (L) Genu Valgus Palpation Assessment Location left piriformis Palpation Findings Tenderness left greater trochanter\ Palpation Findings Tenderness Skin Assessment Other Assessments Skin Assessment Comments skin intact lumbar spine, hip and buttock PT-OP-K Range of Motion Start: 12/16/18 14:33 Freq: Status: Active Protocol: Document 12/16/18 14:33 [facility] (Rec: 12/18/18 09:42 [facility] [id number]) Lumbar Spine Range of Motion Lumbar Spine Active Testing Position Standing Flexion 20 Extension 0 Rotation Left 15 Rotation Right 15 Lateral Flexion Left 35 Lateral Flexion Right 30 ROM Limitations Soft Tissue Tightness,Pain Hip Goniometric Range of Motion Hip Left Hip ROM WFL Yes Flexion w/Knee Flexed 90 Straight Leg Raise 65 Extension 0 Abduction 25 Internal Rotation 15 External Rotation 55 right Testing Position Supine Flexion w/Knee Flexed 100 Straight Leg Raise 65 Extension 0 Abduction 25 Internal Rotation 20 External Rotation 55 Hip ROM Limitations Hip ROM Limitations Pain Comments unable to hold left LE in SLR, pain with all hip motions Knee Goniometric Range of Motion Knee meño Knee ROM WFL Yes Ankle and Foot Goniometric Range of Motion Ankle and Foot meño Ankle/Foot ROM WFL Yes PT-OP-L Special Tests Start: 12/16/18 14:33 Freq: Status: Active Protocol: Document 12/16/18 14:33 [facility] (Rec: 12/18/18 09:42 [facility] [id number]) Special Tests Lumbar Spine Special Tests Compression Test Results negative Slump Test Results negative Hip Special Tests Straight Leg Raise Test Results positive left for pain Piriformis Test Results positive for pain left PT-OP-M Strength Start: 12/16/18 14:33 Freq: Status: Active Protocol: Document 12/16/18 14:33 [facility] (Rec: 12/18/18 09:42 [facility] [id number]) Trunk Strength Trunk Manual Muscle Testing Testing Position Supine Flexion 3+ Fair+ Extension 4- Good- Core Stabilization poor activation of TrA Hip Strength Hip Manual Muscle Testing Left Flexion (L2) 3+ Fair+ Extension (S1) 2+ Poor+ Abduction 3- Fair- External Rotation 3- Fair- Internal Rotation 3+ Fair+ Right Flexion (L2) 4 Good Extension (S1) 3- Fair- Abduction 4- Good- Adduction 3 Fair External Rotation 4 Good Internal Rotation 4+ Good+ Knee Strength Knee Manual Muscle Testing meño Flexion (S2) 4+ Good+ Extension (L3) 4+ Good+ Ankle/Foot Strength Ankle and Foot Manual Muscle Testing meño Dorsiflexion (L4) 4+ Good+ Plantarflexion (S1) 4+ Good+ PT-OP-Q Treatments Start: 12/16/18 14:33 Freq: Status: Active Protocol: Document 12/31/18 08:42 SAK (Rec: 12/31/18 09:30 [facility] [id number]) Cardio Equipment Recumbent Stepper (Sci-Fit) Duration (Minutes) 5 Resistance 2.0 Other emphasis on neutral LE alignment Treadmill Duration (Minutes) 5 Speed 1.2 Incline 0 Other video with patient phone front and back Therapeutic Exercises Supine Exercises ITB stretch Side bilateral hip flex stretch Side bilateral Reps/Minutes 2x Comments side of plinth TrA with march Reps/Minutes 10x Standing Exercises SLS Comments UE support, mirror for visual feedback Gait Training Gait Activity treadmill Comments video with patient phone for reference gait with cane Device Used SPC Treatment Focus gluteal activation, upright posture Comments video taken with patient phone for reference Manual Therapy Treatment Soft Tissue Mobilization left IT band Mobilization Type Instrument Assisted Intensity/Depth Moderate Body Position Sidelying Self-Care/Home Management Treatment Education Other Education review of video of gait, discussion of compensatory patterns and activities/ exercises to address. PT-OP-R Modalities Start: 12/16/18 14:33 Freq: Status: Active Protocol: Document 12/29/18 08:44 SAK (Rec: 12/29/18 17:16 [facility] [id number]) Hot Pack/Cold Pack Treatment Hot Pack Location left hip and lumbar spine Treatment Duration (minutes) 15 PT-OP-S Aquatic Treatment Start: 12/16/18 14:33 Freq: Status: Active Protocol: Document 01/14/19 11:00 [facility] (Rec: 01/15/19 09:42 [facility] [id number]) Aquatics Treatment Pool Entry/Exit Pool Entry/Exit Method Stairs Assistance Independent Water Walking Lunge Walk Water Level Chest Level Level of Assistance Verbal Cues march Water Level Chest Level Level of Assistance Verbal Cues Sideways Water Level Chest Level Level of Assistance Verbal Cues backward Water Level Chest Level Level of Assistance Verbal Cues forward Water Level Chest Level Level of Assistance Verbal Cues Lower Extremity Exercises step-ups Details up/down forward Body Position Standing Comments verbal and manual cues squats Body Position Standing Water Level Chest Level Reps/Duration 10x Lower Extremity Stretches hip flexor Body Position Standing Water Level Chest Level Equipment Small Noodle Reps/Duration 2x30 quad Body Position Standing Water Level Chest Level Equipment Small Noodle Reps/Duration 2x30 ITB Body Position Standing Water Level Chest Level Equipment Large Noodle HS Body Position Standing Water Level Chest Level Equipment Large Noodle [employer] Activities [employer] Activities Bicycle,Cross Country,Running Equipment flotation belt (XL) PT-OP-T Assessment and Plan Start: 12/16/18 14:33 Freq: Status: Active Protocol: Document 01/14/19 11:00 [facility] (Rec: 01/15/19 09:42 [facility] [id number]) Physical Therapy Assessment Impairments Impairments Functional Mobility,Gait,Pain, Strength Goals Four Impairment weakness bilateral hips and core Short Term Goal (STG) Patient to be independent and compliant with HEP with ongoing progression STG Duration 01/20/19 Architecture Department Chair Goal (LTG) Patient to demonstrate core and hip muscle strength of at least 4+/5 Three Impairment functional mobility and activity tolerance Owestry 56% Short Term Goal (STG) Decrease Oswestry disability index score to no greater than 40% STG Duration 01/20/19 Architecture Department Chair Goal (LTG) Decrease Oswestry disability index score to no greater than 20% and return to her usual activities LTG Duration 03/18/19 Two Impairment antalgic gait Short Term Goal (STG) Patient able to walk with minimal limp using least restrictive assistive device indoors STG Duration 01/20/19 Jail Goal (LTG) Patient able to walk in the house with no device without limp, and with least restrictive device with outdoor gait LTG Duration 03/18/19 One Impairment pain Short Term Goal (STG) decrease pain to no greater than 3/10 STG Duration 01/20/19 Architecture Department Chair Goal (LTG) decrease pain to no greater than 2/10 with all usual activities LTG Duration 03/18/19 Assessment Summary Assessment Emphasis on upright posture, gluteal activation, neutral LE alignment. Patient tolerated aquatic ex well, needed moderate verbal and manual cues for form and performance of therapeutic aquatic exercises. Physical Therapy Plan Frequency and Duration Frequency of Treatment 2x/Week Duration of Treatment 12 wks Plan of Care Start Date 12/16/18 Plan of Care End Date 03/18/19 Therapeutic Interventions Therapeutic Interventions Aquatic Therapy,Gait Training, Home Exercise Program,Manual Therapy,Neuromuscular Re- education,Patient/Caregiver Education,Self-Care/Home Management,Soft Tissue Mobilization,Taping, Therapeutic Activities, Therapeutic Exercises Modalities Cold Pack/Ice Massage,Electric Stimulation,Hot Packs, Iontophoresis,Traction- Mechanical,Ultrasound Next Visit Focus/Plan Next Note Type Treatment Note Next Visit Plan Progress ther ex, emphasis on LE alignment, proper mechanics with functional movement. Angeline villa
--- NOTE | 2019-01-19 15:29 | PT.OTN ---
Current Diagnoses Radiculopathy, lumbar region (01/19/19) Difficulty in walking, not elsewhere classified (01/19/19) Abnormal posture (01/19/19) Weakness (01/19/19) Other specified injury of muscle, fascia and tendon of the posterior muscle group at thigh level, left thigh, initial encounter (01/19/19) Physical Therapy Treatment Note PT-OP-A Visit Information Start: 12/16/18 14:33 Freq: Status: Active Protocol: Document 01/19/19 12:30 LJ (Rec: 01/19/19 15:29 LJ [id number]) Out-Patient Physical Therapy Visit Information Visit Information Visit Type Aquatic Treatment Note Visit Start Time 12:30 Visit Stop Time 13:15 Total Visit Minutes 45 Visit Number 8 Number of DROP CREW LABORER Visits 1 Evaluation Information Evaluation Date 12/16/18 Precautions Precautions PMH: arthritis, history of falls, bilateral TKA's, right MILADY, left hip fracture with ORIF. PT-OP-B Current Condition Start: 12/16/18 14:33 Freq: Status: Active Protocol: Document 12/18/18 14:55 SAK (Rec: 12/21/18 13:06 SAK [id number]) Current Condition History of Current Condition Onset Date 2 months Current Complaints left hip and thigh pain History of Current Condition Gradual onset worsening left hip and posterior thigh pain, mild increase in LBP. Now with very limited walking due to pain, unable to do yardwork due to pain. Developed abcess in vaginal area, hasn't been able to go to pool since September 2018, plus 2 bladder infections in past couple months; just finished antibiotics yesterday. No orthotics, wears compression stockings knee high meño. Not using any ice or heat, sleeps on back with pillow under knees or in chair . Reports 2 years of occasional tingling left foot. Left knee gives way at times, step to pattern on stairs due to left knee pain Prior Treatments and Tests MRI showed narrowing in spinal canal and L3-4 History of prior Right MILADY, bilaterl TKA's, left ORIF. Future Testing and Treatments Planned getting cortisone shot in lumbar spine Saturday12/23/18 Personal Factors Other Personal Factors That May Effect Muscle soreness after Therapy/Recovery evaluation PT-OP-C Subjective Start: 12/16/18 14:33 Freq: Status: Active Protocol: Document 01/19/19 12:30 LJ (Rec: 01/19/19 15:29 LJ [id number]) OP-PT Subjective Patient Comments Patient Comments Pt states she has been walking w/o a cane in the house but uses it outside. Able to increase ambulation due to reduction in pain and better gait pattern. PT-OP-G Mobility & Gait Start: 12/16/18 14:33 Freq: Status: Active Protocol: Document 12/16/18 14:33 SAK (Rec: 12/18/18 09:42 SAK [id number]) OP Mobility Evaluation Bed Mobility Rolling painful Supine to and from Sit painful Transfers Sit to Stand painful Functional Movements Squats braces LE's together OP Gait Assessment Gait Gait Assistance Required: Independent Assistive Devices Assistive Device None Gait Deviations General Gait Pattern Antalgic,Decreased Stride Length,Decreased Feet Clearance,Wide Based Gait Factors Limiting Gait Function Factors Limiting Gait Function Pain PT-OP-J Posture/Palpation/Skin Start: 12/16/18 14:33 Freq: Status: Active Protocol: Document 12/16/18 14:33 SAK (Rec: 12/18/18 09:42 SAK [id number]) Posture Evaluation Position Standing Head/C-Spine Posture Forward Head T-Spine Posture Fixed Scoliosis on (R), Increased Kyphosis L-Spine Posture Flattened Scapula Posture (L) Protracted,(R) Protracted Arm Posture (L) Internally Rotated,(R) Internally Rotated Hip Posture (L) Flexed,(R) Flexed,(L) Externally Rotated,(R) Externally Rotated Knee Posture (L) Genu Valgus Palpation Assessment Location left piriformis Palpation Findings Tenderness left greater trochanter\ Palpation Findings Tenderness Skin Assessment Other Assessments Skin Assessment Comments skin intact lumbar spine, hip and buttock PT-OP-K Range of Motion Start: 12/16/18 14:33 Freq: Status: Active Protocol: Document 12/16/18 14:33 SAK (Rec: 12/18/18 09:42 SAK [id number]) Lumbar Spine Range of Motion Lumbar Spine Active Testing Position Standing Flexion 20 Extension 0 Rotation Left 15 Rotation Right 15 Lateral Flexion Left 35 Lateral Flexion Right 30 ROM Limitations Soft Tissue Tightness,Pain Hip Goniometric Range of Motion Hip Left Hip ROM WFL Yes Flexion w/Knee Flexed 90 Straight Leg Raise 65 Extension 0 Abduction 25 Internal Rotation 15 External Rotation 55 right Testing Position Supine Flexion w/Knee Flexed 100 Straight Leg Raise 65 Extension 0 Abduction 25 Internal Rotation 20 External Rotation 55 Hip ROM Limitations Hip ROM Limitations Pain Comments unable to hold left LE in SLR, pain with all hip motions Knee Goniometric Range of Motion Knee meño Knee ROM WFL Yes Ankle and Foot Goniometric Range of Motion Ankle and Foot meño Ankle/Foot ROM WFL Yes PT-OP-L Special Tests Start: 12/16/18 14:33 Freq: Status: Active Protocol: Document 12/16/18 14:33 [facility] (Rec: 12/18/18 09:42 [facility] [id number]) Special Tests Lumbar Spine Special Tests Compression Test Results negative Slump Test Results negative Hip Special Tests Straight Leg Raise Test Results positive left for pain Piriformis Test Results positive for pain left PT-OP-M Strength Start: 12/16/18 14:33 Freq: Status: Active Protocol: Document 12/16/18 14:33 [facility] (Rec: 12/18/18 09:42 [facility] [id number]) Trunk Strength Trunk Manual Muscle Testing Testing Position Supine Flexion 3+ Fair+ Extension 4- Good- Core Stabilization poor activation of TrA Hip Strength Hip Manual Muscle Testing Left Flexion (L2) 3+ Fair+ Extension (S1) 2+ Poor+ Abduction 3- Fair- External Rotation 3- Fair- Internal Rotation 3+ Fair+ Right Flexion (L2) 4 Good Extension (S1) 3- Fair- Abduction 4- Good- Adduction 3 Fair External Rotation 4 Good Internal Rotation 4+ Good+ Knee Strength Knee Manual Muscle Testing meño Flexion (S2) 4+ Good+ Extension (L3) 4+ Good+ Ankle/Foot Strength Ankle and Foot Manual Muscle Testing meño Dorsiflexion (L4) 4+ Good+ Plantarflexion (S1) 4+ Good+ PT-OP-Q Treatments Start: 12/16/18 14:33 Freq: Status: Active Protocol: Document 12/31/18 08:42 SAK (Rec: 12/31/18 09:30 [facility] [id number]) Cardio Equipment Recumbent Stepper (Sci-Fit) Duration (Minutes) 5 Resistance 2.0 Other emphasis on neutral LE alignment Treadmill Duration (Minutes) 5 Speed 1.2 Incline 0 Other video with patient phone front and back Therapeutic Exercises Supine Exercises ITB stretch Side bilateral hip flex stretch Side bilateral Reps/Minutes 2x Comments side of plinth TrA with march Reps/Minutes 10x Standing Exercises SLS Comments UE support, mirror for visual feedback Gait Training Gait Activity treadmill Comments video with patient phone for reference gait with cane Device Used SPC Treatment Focus gluteal activation, upright posture Comments video taken with patient phone for reference Manual Therapy Treatment Soft Tissue Mobilization left IT band Mobilization Type Instrument Assisted Intensity/Depth Moderate Body Position Sidelying Self-Care/Home Management Treatment Education Other Education review of video of gait, discussion of compensatory patterns and activities/ exercises to address. PT-OP-R Modalities Start: 12/16/18 14:33 Freq: Status: Active Protocol: Document 12/29/18 08:44 SAK (Rec: 12/29/18 17:16 SAK [id number]) Hot Pack/Cold Pack Treatment Hot Pack Location left hip and lumbar spine Treatment Duration (minutes) 15 PT-OP-S Aquatic Treatment Start: 12/16/18 14:33 Freq: Status: Active Protocol: Document 01/19/19 12:30 LJ (Rec: 01/19/19 15:29 LJ [id number]) Aquatics Treatment Pool Entry/Exit Pool Entry/Exit Method Stairs Assistance Independent Water Walking stretch cord-forward and backward Water Level Waist Level Walking Equipment stretch cord Lunge Walk Water Level Chest Level Level of Assistance Verbal Cues march Water Level Chest Level Level of Assistance Verbal Cues Sideways Water Level Chest Level Level of Assistance Verbal Cues backward Water Level Chest Level Level of Assistance Verbal Cues forward Water Level Chest Level Level of Assistance Verbal Cues Lower Extremity Exercises Hip abduction Details handhold Body Position Standing Water Level Waist Level Equipment green band Reps/Duration 15 bilat Comments compensatory mvmt pattern noted step-ups Details up/down forward Body Position Standing Comments single leg squats Body Position Standing Water Level Chest Level Reps/Duration 10x Comments with stretch cord rresistance Lower Extremity Stretches hip flexor Body Position Standing Water Level Chest Level Equipment Small Noodle Reps/Duration 2x30 quad Body Position Standing Water Level Chest Level Equipment Small Noodle Reps/Duration 2x30 ITB Body Position Standing Water Level Chest Level Equipment Large Noodle HS Body Position Standing Water Level Chest Level Equipment Large Noodle Spinal Exercises trunk rotations w/cords Body Position Standing Water Level Waist Level Equipment stretch cords Reps/Duration 15 each direction Comments cues for stationary arms Balance SLS-static Water Level Waist Level Reps/Duration 5 min Comments alternating w/minimal arm compensation PT-OP-T Assessment and Plan Start: 12/16/18 14:33 Freq: Status: Active Protocol: Document 01/19/19 12:30 DRAKE (Rec: 01/19/19 15:29 LJ [id number]) Physical Therapy Assessment Impairments Impairments Functional Mobility,Gait,Pain, Strength Goals Four Impairment weakness bilateral hips and core Short Term Goal (STG) Patient to be independent and compliant with HEP with ongoing progression STG Duration 01/20/19 Correction Goal (LTG) Patient to demonstrate core and hip muscle strength of at least 4+/5 Three Impairment functional mobility and activity tolerance Owestry 56% Short Term Goal (STG) Decrease Oswestry disability index score to no greater than 40% STG Duration 01/20/19 Reconsignment Clerk Goal (LTG) Decrease Oswestry disability index score to no greater than 20% and return to her usual activities LTG Duration 03/18/19 Two Impairment antalgic gait Short Term Goal (STG) Patient able to walk with minimal limp using least restrictive assistive device indoors STG Duration 01/20/19 Correction Goal (LTG) Patient able to walk in the house with no device without limp, and with least restrictive device with outdoor gait LTG Duration 03/18/19 One Impairment pain Short Term Goal (STG) decrease pain to no greater than 3/10 STG Duration 01/20/19 Correction Goal (LTG) decrease pain to no greater than 2/10 with all usual activities LTG Duration 03/18/19 Assessment Summary Assessment Pt performed well with step ups with cueing for proper posture and cervical alignment . Pt has significant disfunctional and compensatory movement patterns with gait and LE exercises. Balance shows improvement Physical Therapy Plan Frequency and Duration Frequency of Treatment 2x/Week Duration of Treatment 12 wks Plan of Care Start Date 12/16/18 Plan of Care End Date 03/18/19 Therapeutic Interventions Therapeutic Interventions Aquatic Therapy,Gait Training, Home Exercise Program,Manual Therapy,Neuromuscular Re- education,Patient/Caregiver Education,Self-Care/Home Management,Soft Tissue Mobilization,Taping, Therapeutic Activities, Therapeutic Exercises Modalities Cold Pack/Ice Massage,Electric Stimulation,Hot Packs, Iontophoresis,Traction- Mechanical,Ultrasound Next Visit Focus/Plan Next Note Type Treatment Note Next Visit Plan Progress ther ex, emphasis on LE alignment, proper mechanics with functional movement. Improve mechanics prior to strengthening and endurance.
--- NOTE | 2019-01-20 12:00 | PT.OTN ---
Current Diagnoses Radiculopathy, lumbar region (01/20/19) Difficulty in walking, not elsewhere classified (01/20/19) Abnormal posture (01/20/19) Weakness (01/20/19) Other specified injury of muscle, fascia and tendon of the posterior muscle group at thigh level, left thigh, initial encounter (01/20/19) Physical Therapy Treatment Note PT-OP-A Visit Information Start: 12/16/18 14:33 Freq: Status: Active Protocol: Document 01/20/19 11:52 GGD (Rec: 01/20/19 12:00 GGD [id number]) Out-Patient Physical Therapy Visit Information Visit Information Visit Type Treatment Note Visit Start Time 10:30 Visit Stop Time 11:20 Total Visit Minutes 50 Visit Number 9 Number of CAR CUSTOMIZER Visits 2 Evaluation Information Evaluation Date 12/16/18 PT-OP-B Current Condition Start: 12/16/18 14:33 Freq: Status: Active Protocol: Document 12/18/18 14:55 SAK (Rec: 12/21/18 13:06 SAK [id number]) Current Condition History of Current Condition Onset Date 2 months Current Complaints left hip and thigh pain History of Current Condition Gradual onset worsening left hip and posterior thigh pain, mild increase in LBP. Now with very limited walking due to pain, unable to do yardwork due to pain. Developed abcess in vaginal area, hasn't been able to go to pool since September 2018, plus 2 bladder infections in past couple months; just finished antibiotics yesterday. No orthotics, wears compression stockings knee high meño. Not using any ice or heat, sleeps on back with pillow under knees or in chair . Reports 2 years of occasional tingling left foot. Left knee gives way at times, step to pattern on stairs due to left knee pain Prior Treatments and Tests MRI showed narrowing in spinal canal and L3-4 History of prior Right MILADY, bilaterl TKA's, left ORIF. Future Testing and Treatments Planned getting cortisone shot in lumbar spine Saturday12/23/18 Personal Factors Other Personal Factors That May Effect Muscle soreness after Therapy/Recovery evaluation PT-OP-C Subjective Start: 12/16/18 14:33 Freq: Status: Active Protocol: Document 01/20/19 11:52 GGD (Rec: 01/20/19 12:00 GGD [id number]) OP-PT Subjective Patient Comments Patient Comments Pt states that she had a little back pain after the pool. PT-OP-G Mobility & Gait Start: 12/16/18 14:33 Freq: Status: Active Protocol: Document 12/16/18 14:33 [facility] (Rec: 12/18/18 09:42 [facility] [id number]) OP Mobility Evaluation Bed Mobility Rolling painful Supine to and from Sit painful Transfers Sit to Stand painful Functional Movements Squats braces LE's together OP Gait Assessment Gait Gait Assistance Required: Independent Assistive Devices Assistive Device None Gait Deviations General Gait Pattern Antalgic,Decreased Stride Length,Decreased Feet Clearance,Wide Based Gait Factors Limiting Gait Function Factors Limiting Gait Function Pain PT-OP-J Posture/Palpation/Skin Start: 12/16/18 14:33 Freq: Status: Active Protocol: Document 12/16/18 14:33 [facility] (Rec: 12/18/18 09:42 [facility] [id number]) Posture Evaluation Position Standing Head/C-Spine Posture Forward Head T-Spine Posture Fixed Scoliosis on (R), Increased Kyphosis L-Spine Posture Flattened Scapula Posture (L) Protracted,(R) Protracted Arm Posture (L) Internally Rotated,(R) Internally Rotated Hip Posture (L) Flexed,(R) Flexed,(L) Externally Rotated,(R) Externally Rotated Knee Posture (L) Genu Valgus Palpation Assessment Location left piriformis Palpation Findings Tenderness left greater trochanter\ Palpation Findings Tenderness Skin Assessment Other Assessments Skin Assessment Comments skin intact lumbar spine, hip and buttock PT-OP-K Range of Motion Start: 12/16/18 14:33 Freq: Status: Active Protocol: Document 12/16/18 14:33 [facility] (Rec: 12/18/18 09:42 [facility] [id number]) Lumbar Spine Range of Motion Lumbar Spine Active Testing Position Standing Flexion 20 Extension 0 Rotation Left 15 Rotation Right 15 Lateral Flexion Left 35 Lateral Flexion Right 30 ROM Limitations Soft Tissue Tightness,Pain Hip Goniometric Range of Motion Hip Left Hip ROM WFL Yes Flexion w/Knee Flexed 90 Straight Leg Raise 65 Extension 0 Abduction 25 Internal Rotation 15 External Rotation 55 right Testing Position Supine Flexion w/Knee Flexed 100 Straight Leg Raise 65 Extension 0 Abduction 25 Internal Rotation 20 External Rotation 55 Hip ROM Limitations Hip ROM Limitations Pain Comments unable to hold left LE in SLR, pain with all hip motions Knee Goniometric Range of Motion Knee meño Knee ROM WFL Yes Ankle and Foot Goniometric Range of Motion Ankle and Foot meño Ankle/Foot ROM WFL Yes PT-OP-L Special Tests Start: 12/16/18 14:33 Freq: Status: Active Protocol: Document 12/16/18 14:33 SAK (Rec: 12/18/18 09:42 SAK [id number]) Special Tests Lumbar Spine Special Tests Compression Test Results negative Slump Test Results negative Hip Special Tests Straight Leg Raise Test Results positive left for pain Piriformis Test Results positive for pain left PT-OP-M Strength Start: 12/16/18 14:33 Freq: Status: Active Protocol: Document 12/16/18 14:33 SAK (Rec: 12/18/18 09:42 [facility] [id number]) Trunk Strength Trunk Manual Muscle Testing Testing Position Supine Flexion 3+ Fair+ Extension 4- Good- Core Stabilization poor activation of TrA Hip Strength Hip Manual Muscle Testing Left Flexion (L2) 3+ Fair+ Extension (S1) 2+ Poor+ Abduction 3- Fair- External Rotation 3- Fair- Internal Rotation 3+ Fair+ Right Flexion (L2) 4 Good Extension (S1) 3- Fair- Abduction 4- Good- Adduction 3 Fair External Rotation 4 Good Internal Rotation 4+ Good+ Knee Strength Knee Manual Muscle Testing meño Flexion (S2) 4+ Good+ Extension (L3) 4+ Good+ Ankle/Foot Strength Ankle and Foot Manual Muscle Testing meño Dorsiflexion (L4) 4+ Good+ Plantarflexion (S1) 4+ Good+ PT-OP-Q Treatments Start: 12/16/18 14:33 Freq: Status: Active Protocol: Document 01/20/19 11:52 GGD (Rec: 01/20/19 12:00 GGD [id number]) Cardio Equipment Recumbent Stepper (Sci-Fit) Duration (Minutes) 5 Resistance 2.0 Other emphasis on neutral LE alignment Therapeutic Exercises Supine Exercises ITB stretch Side bilateral hip flex stretch Side bilateral Reps/Minutes 2x Comments side of plinth TrA with march Reps/Minutes 10x Standing Exercises SLS Comments UE support, mirror for visual feedback Other Exercises bosu lunges Other Exercise Name bosu lunges Side bilateral Reps/Minutes 10 Gait Training Gait Activity gait with cane Device Used SPC Treatment Focus gluteal activation, upright posture Manual Therapy Treatment Soft Tissue Mobilization left IT band Mobilization Type Instrument Assisted Intensity/Depth Moderate Body Position Sidelying PT-OP-R Modalities Start: 12/16/18 14:33 Freq: Status: Active Protocol: Document 01/20/19 11:52 GGD (Rec: 01/20/19 12:00 GGD [id number]) Hot Pack/Cold Pack Treatment Hot Pack Location left hip and lumbar spine Treatment Duration (minutes) 15 PT-OP-S Aquatic Treatment Start: 12/16/18 14:33 Freq: Status: Active Protocol: Document 01/19/19 12:30 LJ (Rec: 01/19/19 15:29 LJ [id number]) Aquatics Treatment Pool Entry/Exit Pool Entry/Exit Method Stairs Assistance Independent Water Walking stretch cord-forward and backward Water Level Waist Level Walking Equipment stretch cord Lunge Walk Water Level Chest Level Level of Assistance Verbal Cues march Water Level Chest Level Level of Assistance Verbal Cues Sideways Water Level Chest Level Level of Assistance Verbal Cues backward Water Level Chest Level Level of Assistance Verbal Cues forward Water Level Chest Level Level of Assistance Verbal Cues Lower Extremity Exercises Hip abduction Details handhold Body Position Standing Water Level Waist Level Equipment green band Reps/Duration 15 bilat Comments compensatory mvmt pattern noted step-ups Details up/down forward Body Position Standing Comments single leg squats Body Position Standing Water Level Chest Level Reps/Duration 10x Comments with stretch cord rresistance Lower Extremity Stretches hip flexor Body Position Standing Water Level Chest Level Equipment Small Noodle Reps/Duration 2x30 quad Body Position Standing Water Level Chest Level Equipment Small Noodle Reps/Duration 2x30 ITB Body Position Standing Water Level Chest Level Equipment Large Noodle HS Body Position Standing Water Level Chest Level Equipment Large Noodle Spinal Exercises trunk rotations w/cords Body Position Standing Water Level Waist Level Equipment stretch cords Reps/Duration 15 each direction Comments cues for stationary arms Balance SLS-static Water Level Waist Level Reps/Duration 5 min Comments alternating w/minimal arm compensation PT-OP-T Assessment and Plan Start: 12/16/18 14:33 Freq: Status: Active Protocol: Document 01/20/19 11:52 GGD (Rec: 01/20/19 12:00 GGD [id number]) Physical Therapy Assessment Goals Four Impairment weakness bilateral hips and core Short Term Goal (STG) Patient to be independent and compliant with HEP with ongoing progression STG Duration 01/20/19 Commercial Director Goal (LTG) Patient to demonstrate core and hip muscle strength of at least 4+/5 Three Impairment functional mobility and activity tolerance Owestry 56% Short Term Goal (STG) Decrease Oswestry disability index score to no greater than 40% STG Duration 01/20/19 Mcfp Goal (LTG) Decrease Oswestry disability index score to no greater than 20% and return to her usual activities LTG Duration 03/18/19 Two Impairment antalgic gait Short Term Goal (STG) Patient able to walk with minimal limp using least restrictive assistive device indoors STG Duration 01/20/19 Commercial Director Goal (LTG) Patient able to walk in the house with no device without limp, and with least restrictive device with outdoor gait LTG Duration 03/18/19 One Impairment pain Short Term Goal (STG) decrease pain to no greater than 3/10 STG Duration 01/20/19 Mcfp Goal (LTG) decrease pain to no greater than 2/10 with all usual activities LTG Duration 03/18/19 Assessment Summary Assessment Pt needed cues for lunges and gait. She improved with gait after working in step stance with mirror. Pt had knee pain with SLS on left. Physical Therapy Plan Frequency and Duration Frequency of Treatment 2x/Week Duration of Treatment 12 wks Plan of Care Start Date 12/16/18 Plan of Care End Date 03/18/19 Next Visit Focus/Plan Next Note Type Treatment Note Next Visit Plan Progress ther ex, emphasis on LE alignment, proper mechanics with functional movement. Improve mechanics prior to strengthening and endurance.
--- NOTE | 2019-01-26 16:21 | PT.OTN ---
Current Diagnoses Radiculopathy, lumbar region (01/26/19) Difficulty in walking, not elsewhere classified (01/26/19) Abnormal posture (01/26/19) Weakness (01/26/19) Other specified injury of muscle, fascia and tendon of the posterior muscle group at thigh level, left thigh, initial encounter (01/26/19) Physical Therapy Treatment Note PT-OP-A Visit Information Start: 12/16/18 14:33 Freq: Status: Active Protocol: Document 01/26/19 08:14 SAK (Rec: 01/26/19 08:[address] [facility] [id number]) Out-Patient Physical Therapy Visit Information Visit Information Visit Type Treatment Note Visit Start Time 08: Visit Stop Time 09:16 Total Visit Minutes 57 Visit Number 10 Number of EYEGLASS CUTTER Visits 0 Evaluation Information Evaluation Date 12/16/18 Precautions Precautions PMH: arthritis, history of falls, bilateral TKA's, right MILADY, left hip fracture with ORIF. PT-OP-B Current Condition Start: 12/16/18 14:33 Freq: Status: Active Protocol: Document 12/18/18 14:55 SAK (Rec: 12/21/18 13:[address] [facility] [id number]) Current Condition History of Current Condition Onset Date 2 months Current Complaints left hip and thigh pain History of Current Condition Gradual onset worsening left hip and posterior thigh pain, mild increase in LBP. Now with very limited walking due to pain, unable to do yardwork due to pain. Developed abcess in vaginal area, hasn't been able to go to pool since September 2018, plus 2 bladder infections in past couple months; just finished antibiotics yesterday. No orthotics, wears compression stockings knee high meño. Not using any ice or heat, sleeps on back with pillow under knees or in chair . Reports 2 years of occasional tingling left foot. Left knee gives way at times, step to pattern on stairs due to left knee pain Prior Treatments and Tests MRI showed narrowing in spinal canal and L3-4 History of prior Right MILADY, bilaterl TKA's, left ORIF. Future Testing and Treatments Planned getting cortisone shot in lumbar spine Saturday12/23/18 Personal Factors Other Personal Factors That May Effect Muscle soreness after Therapy/Recovery evaluation PT-OP-C Subjective Start: 12/16/18 14:33 Freq: Status: Active Protocol: Document 01/26/19 08:14 SAK (Rec: 01/26/19 08:[address] [facility] [id number]) OP-PT Subjective Patient Comments Patient Comments Since last session medial left knee pain (thinks it was due to standing on 1 leg) PT-OP-G Mobility & Gait Start: 12/16/18 14:33 Freq: Status: Active Protocol: Document 12/16/18 14:[address] [facility] (Rec: 12/18/18 09:[address] [facility] [id number]) OP Mobility Evaluation Bed Mobility Rolling painful Supine to and from Sit painful Transfers Sit to Stand painful Functional Movements Squats braces LE's together OP Gait Assessment Gait Gait Assistance Required: Independent Assistive Devices Assistive Device None Gait Deviations General Gait Pattern Antalgic,Decreased Stride Length,Decreased Feet Clearance,Wide Based Gait Factors Limiting Gait Function Factors Limiting Gait Function Pain PT-OP-J Posture/Palpation/Skin Start: 12/16/18 14:33 Freq: Status: Active Protocol: Document 12/16/18 14:[address] [facility] (Rec: 12/18/18 09:[address] [facility] [id number]) Posture Evaluation Position Standing Head/C-Spine Posture Forward Head T-Spine Posture Fixed Scoliosis on (R), Increased Kyphosis L-Spine Posture Flattened Scapula Posture (L) Protracted,(R) Protracted Arm Posture (L) Internally Rotated,(R) Internally Rotated Hip Posture (L) Flexed,(R) Flexed,(L) Externally Rotated,(R) Externally Rotated Knee Posture (L) Genu Valgus Palpation Assessment Location left piriformis Palpation Findings Tenderness left greater trochanter\ Palpation Findings Tenderness Skin Assessment Other Assessments Skin Assessment Comments skin intact lumbar spine, hip and buttock PT-OP-K Range of Motion Start: 12/16/18 14:33 Freq: Status: Active Protocol: Document 12/16/18 14:[address] [facility] (Rec: 12/18/18 09:[address] [facility] [id number]) Lumbar Spine Range of Motion Lumbar Spine Active Testing Position Standing Flexion 20 Extension 0 Rotation Left 15 Rotation Right 15 Lateral Flexion Left 35 Lateral Flexion Right 30 ROM Limitations Soft Tissue Tightness,Pain Hip Goniometric Range of Motion Hip Left Hip ROM WFL Yes Flexion w/Knee Flexed 90 Straight Leg Raise 65 Extension 0 Abduction 25 Internal Rotation 15 External Rotation 55 right Testing Position Supine Flexion w/Knee Flexed 100 Straight Leg Raise 65 Extension 0 Abduction 25 Internal Rotation 20 External Rotation 55 Hip ROM Limitations Hip ROM Limitations Pain Comments unable to hold left LE in SLR, pain with all hip motions Knee Goniometric Range of Motion Knee meño Knee ROM WFL Yes Ankle and Foot Goniometric Range of Motion Ankle and Foot meño Ankle/Foot ROM WFL Yes PT-OP-L Special Tests Start: 12/16/18 14:33 Freq: Status: Active Protocol: Document 12/16/18 14:[address] [facility] (Rec: 12/18/18 09:[address] [facility] [id number]) Special Tests Lumbar Spine Special Tests Compression Test Results negative Slump Test Results negative Hip Special Tests Straight Leg Raise Test Results positive left for pain Piriformis Test Results positive for pain left PT-OP-M Strength Start: 12/16/18 14:33 Freq: Status: Active Protocol: Document 12/16/18 14:[address] [facility] (Rec: 12/18/18 09:[address] [facility] [id number]) Trunk Strength Trunk Manual Muscle Testing Testing Position Supine Flexion 3+ Fair+ Extension 4- Good- Core Stabilization poor activation of TrA Hip Strength Hip Manual Muscle Testing Left Flexion (L2) 3+ Fair+ Extension (S1) 2+ Poor+ Abduction 3- Fair- External Rotation 3- Fair- Internal Rotation 3+ Fair+ Right Flexion (L2) 4 Good Extension (S1) 3- Fair- Abduction 4- Good- Adduction 3 Fair External Rotation 4 Good Internal Rotation 4+ Good+ Knee Strength Knee Manual Muscle Testing meño Flexion (S2) 4+ Good+ Extension (L3) 4+ Good+ Ankle/Foot Strength Ankle and Foot Manual Muscle Testing meño Dorsiflexion (L4) 4+ Good+ Plantarflexion (S1) 4+ Good+ PT-OP-Q Treatments Start: 12/16/18 14:33 Freq: Status: Active Protocol: Document 01/26/19 08:[address] [facility] (Rec: 01/26/19 08:[address] [facility] [id number]) Cardio Equipment Recumbent Stepper (Sci-Fit) Duration (Minutes) 6 Resistance 2.0 Other emphasis on neutral LE alignment Gym Equipment Shuttle Recovery Unilateral Squats Resistance 50# Shuttle Recovery Platform Stable Reps/Time 2x10 Bilateral Squats Resistance 75# Shuttle Recovery Platform Stable Reps/Time 2x10 Sport Cord green Exercise Details forward and side Reps/Duration 8 min Comments mirror for visual feedback, plus verbal and manual cues Therapeutic Exercises Supine Exercises ITB stretch Side bilateral hip flex stretch Side bilateral Reps/Minutes 2x Comments side of plinth TrA with march Reps/Minutes 10x Standing Exercises squats Reps/Minutes 10x SLS Comments unweighting only, not full SLS step-up Reps/Minutes 10x Comments emphasis on gluteal activation weight shift with gluteal activation Reps/Minutes 10x Other Exercises bosu lunges Other Exercise Name bosu lunges Side bilateral Reps/Minutes 10 Gait Training Gait Activity gait with cane Device Used SPC Treatment Focus gluteal activation, upright posture Manual Therapy Treatment Soft Tissue Mobilization left IT band Mobilization Type Instrument Assisted Intensity/Depth Moderate Body Position Sidelying PT-OP-R Modalities Start: 12/16/18 14:33 Freq: Status: Active Protocol: Document 01/26/19 08:14 SAK (Rec: 01/26/19 08:59 SAK [id number]) Hot Pack/Cold Pack Treatment Hot Pack Location left hip and lumbar spine Patient Position Sidelying Treatment Duration (minutes) 15 PT-OP-S Aquatic Treatment Start: 12/16/18 14:33 Freq: Status: Active Protocol: Document 01/19/19 12:30 LJ (Rec: 01/19/19 15:29 [facility] [id number]) Aquatics Treatment Pool Entry/Exit Pool Entry/Exit Method Stairs Assistance Independent Water Walking stretch cord-forward and backward Water Level Waist Level Walking Equipment stretch cord Lunge Walk Water Level Chest Level Level of Assistance Verbal Cues july Water Level Chest Level Level of Assistance Verbal Cues Sideways Water Level Chest Level Level of Assistance Verbal Cues backward Water Level Chest Level Level of Assistance Verbal Cues forward Water Level Chest Level Level of Assistance Verbal Cues Lower Extremity Exercises Hip abduction Details handhold Body Position Standing Water Level Waist Level Equipment green band Reps/Duration 15 bilat Comments compensatory mvmt pattern noted step-ups Details up/down forward Body Position Standing Comments single leg squats Body Position Standing Water Level Chest Level Reps/Duration 10x Comments with stretch cord rresistance Lower Extremity Stretches hip flexor Body Position Standing Water Level Chest Level Equipment Small Noodle Reps/Duration 2x30 quad Body Position Standing Water Level Chest Level Equipment Small Noodle Reps/Duration 2x30 ITB Body Position Standing Water Level Chest Level Equipment Large Noodle HS Body Position Standing Water Level Chest Level Equipment Large Noodle Spinal Exercises trunk rotations w/cords Body Position Standing Water Level Waist Level Equipment stretch cords Reps/Duration 15 each direction Comments cues for stationary arms Balance SLS-static Water Level Waist Level Reps/Duration 5 min Comments alternating w/minimal arm compensation PT-OP-T Assessment and Plan Start: 12/16/18 14:33 Freq: Status: Active Protocol: Document 01/26/19 08:14 MICHELLE (Rec: 01/26/19 08:[address] [facility] [id number]) Physical Therapy Assessment Goals Four Impairment weakness bilateral hips and core Short Term Goal (STG) Patient to be independent and compliant with HEP with ongoing progression STG Duration 01/20/19 Travel Coordinator Goal (LTG) Patient to demonstrate core and hip muscle strength of at least 4+/5 Three Impairment functional mobility and activity tolerance Owestry 56% Short Term Goal (STG) Decrease Oswestry disability index score to no greater than 40% STG Duration 01/20/19 Travel Coordinator Goal (LTG) Decrease Oswestry disability index score to no greater than 20% and return to her usual activities LTG Duration 03/18/19 Two Impairment antalgic gait Short Term Goal (STG) Patient able to walk with minimal limp using least restrictive assistive device indoors STG Duration 01/20/19 Jail Goal (LTG) Patient able to walk in the house with no device without limp, and with least restrictive device with outdoor gait LTG Duration 03/18/19 One Impairment pain Short Term Goal (STG) decrease pain to no greater than 3/10 STG Duration 01/20/19 Travel Coordinator Goal (LTG) decrease pain to no greater than 2/10 with all usual activities LTG Duration 03/18/19 Assessment Summary Assessment Knee pain has persisted but is slightly better after last PT session. Patient able to identify postural and muscle activation asymmetry using mirror for visual feedback and PT verbal feedback Physical Therapy Plan Frequency and Duration Frequency of Treatment 2x/Week Duration of Treatment 12 wks Plan of Care Start Date 12/16/18 Plan of Care End Date 03/18/19 Therapeutic Interventions Therapeutic Interventions Aquatic Therapy,Gait Training, Home Exercise Program,Manual Therapy,Neuromuscular Re- education,Patient/Caregiver Education,Self-Care/Home Management,Soft Tissue Mobilization,Taping, Therapeutic Activities, Therapeutic Exercises Modalities Cold Pack/Ice Massage,Electric Stimulation,Hot Packs, Iontophoresis,Traction- Mechanical,Ultrasound Next Visit Focus/Plan Next Note Type Treatment Note
--- NOTE | 2019-01-26 16:28 | PT.OPPN ---
Current Diagnoses Radiculopathy, lumbar region (01/26/19) Difficulty in walking, not elsewhere classified (01/26/19) Abnormal posture (01/26/19) Weakness (01/26/19) Other specified injury of muscle, fascia and tendon of the posterior muscle group at thigh level, left thigh, initial encounter (01/26/19) Physical Therapy Progress Note PT-OP-A Visit Information Start: 12/16/18 14:33 Freq: Status: Active Protocol: Document 01/26/19 08:14 SAK (Rec: 01/26/19 08:59 [facility] [id number]) Out-Patient Physical Therapy Visit Information Visit Information Visit Type Treatment Note Visit Start Time 08: Visit Stop Time 09:16 Total Visit Minutes 57 Visit Number 10 Number of HOUSING CASE MANAGER Visits 0 Evaluation Information Evaluation Date 12/16/18 Precautions Precautions PMH: arthritis, history of falls, bilateral TKA's, right MILADY, left hip fracture with ORIF. PT-OP-B Current Condition Start: 12/16/18 14:33 Freq: Status: Active Protocol: Document 12/18/18 14:55 SAK (Rec: 12/21/18 13:06 [facility] [id number]) Current Condition History of Current Condition Onset Date 2 months Current Complaints left hip and thigh pain History of Current Condition Gradual onset worsening left hip and posterior thigh pain, mild increase in LBP. Now with very limited walking due to pain, unable to do yardwork due to pain. Developed abcess in vaginal area, hasn't been able to go to pool since September 2018, plus 2 bladder infections in past couple months; just finished antibiotics yesterday. No orthotics, wears compression stockings knee high meño. Not using any ice or heat, sleeps on back with pillow under knees or in chair . Reports 2 years of occasional tingling left foot. Left knee gives way at times, step to pattern on stairs due to left knee pain Prior Treatments and Tests MRI showed narrowing in spinal canal and L3-4 History of prior Right MILADY, bilaterl TKA's, left ORIF. Future Testing and Treatments Planned getting cortisone shot in lumbar spine Saturday12/23/18 Personal Factors Other Personal Factors That May Effect Muscle soreness after Therapy/Recovery evaluation PT-OP-C Subjective Start: 12/16/18 14:33 Freq: Status: Active Protocol: Document 01/26/19 08:14 SAK (Rec: 01/26/19 08:59 [facility] [id number]) OP-PT Subjective Patient Comments Patient Comments Since last session medial left knee pain (thinks it was due to standing on 1 leg) PT-OP-G Mobility & Gait Start: 12/16/18 14:33 Freq: Status: Active Protocol: Document 12/16/18 14:33 [facility] (Rec: 12/18/18 09:42 [facility] [id number]) OP Mobility Evaluation Bed Mobility Rolling painful Supine to and from Sit painful Transfers Sit to Stand painful Functional Movements Squats braces LE's together OP Gait Assessment Gait Gait Assistance Required: Independent Assistive Devices Assistive Device None Gait Deviations General Gait Pattern Antalgic,Decreased Stride Length,Decreased Feet Clearance,Wide Based Gait Factors Limiting Gait Function Factors Limiting Gait Function Pain PT-OP-J Posture/Palpation/Skin Start: 12/16/18 14:33 Freq: Status: Active Protocol: Document 12/16/18 14:33 [facility] (Rec: 12/18/18 09:42 [facility] [id number]) Posture Evaluation Position Standing Head/C-Spine Posture Forward Head T-Spine Posture Fixed Scoliosis on (R), Increased Kyphosis L-Spine Posture Flattened Scapula Posture (L) Protracted,(R) Protracted Arm Posture (L) Internally Rotated,(R) Internally Rotated Hip Posture (L) Flexed,(R) Flexed,(L) Externally Rotated,(R) Externally Rotated Knee Posture (L) Genu Valgus Palpation Assessment Location left piriformis Palpation Findings Tenderness left greater trochanter\ Palpation Findings Tenderness Skin Assessment Other Assessments Skin Assessment Comments skin intact lumbar spine, hip and buttock PT-OP-K Range of Motion Start: 12/16/18 14:33 Freq: Status: Active Protocol: Document 12/16/18 14:33 [facility] (Rec: 12/18/18 09:42 [facility] [id number]) Lumbar Spine Range of Motion Lumbar Spine Active Testing Position Standing Flexion 20 Extension 0 Rotation Left 15 Rotation Right 15 Lateral Flexion Left 35 Lateral Flexion Right 30 ROM Limitations Soft Tissue Tightness,Pain Hip Goniometric Range of Motion Hip Measured in Degrees Left Hip ROM WFL Yes Flexion w/Knee Flexed 90 Straight Leg Raise 65 Extension 0 Abduction 25 Internal Rotation 15 External Rotation 55 right Testing Position Supine Flexion w/Knee Flexed 100 Straight Leg Raise 65 Extension 0 Abduction 25 Internal Rotation 20 External Rotation 55 Hip ROM Limitations Hip ROM Limitations Pain Comments unable to hold left LE in SLR, pain with all hip motions Knee Goniometric Range of Motion Knee Measured in Degrees meño Knee ROM WFL Yes Ankle and Foot Goniometric Range of Motion Ankle and Foot Measured in Degrees meño Ankle/Foot ROM WFL Yes PT-OP-L Special Tests Start: 12/16/18 14:33 Freq: Status: Active Protocol: Document 12/16/18 14:33 [facility] (Rec: 12/18/18 09:42 [facility] [id number]) Special Tests Lumbar Spine Special Tests Compression Test Results negative Slump Test Results negative Hip Special Tests Straight Leg Raise Test Results positive left for pain Piriformis Test Results positive for pain left PT-OP-M Strength Start: 12/16/18 14:33 Freq: Status: Active Protocol: Document 12/16/18 14:33 [facility] (Rec: 12/18/18 09:42 [facility] [id number]) Trunk Strength Trunk Manual Muscle Testing Testing Position Supine Flexion 3+ Fair+ Extension 4- Good- Core Stabilization poor activation of TrA Hip Strength Hip Manual Muscle Testing Left Flexion (L2) 3+ Fair+ Extension (S1) 2+ Poor+ Abduction 3- Fair- External Rotation 3- Fair- Internal Rotation 3+ Fair+ Right Flexion (L2) 4 Good Extension (S1) 3- Fair- Abduction 4- Good- Adduction 3 Fair External Rotation 4 Good Internal Rotation 4+ Good+ Knee Strength Knee Manual Muscle Testing meño Flexion (S2) 4+ Good+ Extension (L3) 4+ Good+ Ankle/Foot Strength Ankle and Foot Manual Muscle Testing meño Dorsiflexion (L4) 4+ Good+ Plantarflexion (S1) 4+ Good+ PT-OP-T Assessment and Plan Start: 12/16/18 14:33 Freq: Status: Active Protocol: Document 01/26/19 08:14 [facility] (Rec: 01/26/19 08:59 [facility] [id number]) Physical Therapy Assessment Goals Four Impairment weakness bilateral hips and core Short Term Goal (STG) Patient to be independent and compliant with HEP with ongoing progression 01/26/19: good goal progress, patient highly compliant. We continue to progress her HEP. STG Duration 01/20/19 Group Home Goal (LTG) Patient to demonstrate core and hip muscle strength of at least 4+/5 LTG Duration 03/18/19 Three Impairment functional mobility and activity tolerance Owestry 56% Short Term Goal (STG) Decrease Oswestry disability index score to no greater than 40% 01/26/19: not retested today, verbally patient reporting increased activity tolerance, decreased pain STG Duration 01/20/19 Elementary Assistant Teacher Goal (LTG) Decrease Oswestry disability index score to no greater than 20% and return to her usual activities LTG Duration 03/18/19 Two Impairment antalgic gait Short Term Goal (STG) Patient able to walk with minimal limp using least restrictive assistive device indoors 01/26/19: patient able to walk with single point cane with minimal limp/compensation STG Duration 01/20/19 Elementary Assistant Teacher Goal (LTG) Patient able to walk in the house with no device without limp, and with least restrictive device with outdoor gait LTG Duration 03/18/19 One Impairment pain Short Term Goal (STG) decrease pain to no greater than 3/10 01/26/19: good progress, knee pain largest issue today. STG Duration 01/20/19 Elementary Assistant Teacher Goal (LTG) decrease pain to no greater than 2/10 with all usual activities LTG Duration 03/18/19 Assessment Summary Assessment Knee pain has persisted but is slightly better after last PT session. Patient able to identify postural and muscle activation asymmetry using mirror for visual feedback and PT verbal feedback Physical Therapy Plan Frequency and Duration Frequency of Treatment 2x/Week Duration of Treatment 12 wks Plan of Care Start Date 12/16/18 Plan of Care End Date 03/18/19 Therapeutic Interventions Therapeutic Interventions Aquatic Therapy,Gait Training, Home Exercise Program,Manual Therapy,Neuromuscular Re- education,Patient/Caregiver Education,Self-Care/Home Management,Soft Tissue Mobilization,Taping, Therapeutic Activities, Therapeutic Exercises Modalities Cold Pack/Ice Massage,Electric Stimulation,Hot Packs, Iontophoresis,Traction- Mechanical,Ultrasound Next Visit Focus/Plan Next Note Type Treatment Note Next Visit Plan Continue to progress with strengthening, stabilization, balance, postural correction, manual therapy, modalities as needed.
--- NOTE | 2019-01-28 12:30 | PT.OTN ---
Current Diagnoses Radiculopathy, lumbar region (01/28/19) Difficulty in walking, not elsewhere classified (01/28/19) Abnormal posture (01/28/19) Weakness (01/28/19) Other specified injury of muscle, fascia and tendon of the posterior muscle group at thigh level, left thigh, initial encounter (01/28/19) Physical Therapy Treatment Note PT-OP-A Visit Information Start: 12/16/18 14:33 Freq: Status: Active Protocol: Document 01/28/19 12:30 SAK (Rec: 01/29/19 17:49 [facility] [id number]) Out-Patient Physical Therapy Visit Information Visit Information Visit Type Aquatic Treatment Note Visit Start Time 12:30 Visit Stop Time 13:15 Total Visit Minutes 45 Visit Number 11 Number of PAPER CUTTER OPERATOR Visits 0 Evaluation Information Evaluation Date 12/16/18 Precautions Precautions PMH: arthritis, history of falls, bilateral TKA's, right MILADY, left hip fracture with ORIF. PT-OP-B Current Condition Start: 12/16/18 14:33 Freq: Status: Active Protocol: Document 12/18/18 14:55 SAK (Rec: 12/21/18 13:06 [facility] [id number]) Current Condition History of Current Condition Onset Date 2 months Current Complaints left hip and thigh pain History of Current Condition Gradual onset worsening left hip and posterior thigh pain, mild increase in LBP. Now with very limited walking due to pain, unable to do yardwork due to pain. Developed abcess in vaginal area, hasn't been able to go to pool since September 2018, plus 2 bladder infections in past couple months; just finished antibiotics yesterday. No orthotics, wears compression stockings knee high meño. Not using any ice or heat, sleeps on back with pillow under knees or in chair . Reports 2 years of occasional tingling left foot. Left knee gives way at times, step to pattern on stairs due to left knee pain Prior Treatments and Tests MRI showed narrowing in spinal canal and L3-4 History of prior Right MILADY, bilaterl TKA's, left ORIF. Future Testing and Treatments Planned getting cortisone shot in lumbar spine Saturday12/23/18 Personal Factors Other Personal Factors That May Effect Muscle soreness after Therapy/Recovery evaluation PT-OP-C Subjective Start: 12/16/18 14:33 Freq: Status: Active Protocol: Document 01/28/19 12:30 SAK (Rec: 01/29/19 17:49 [facility] [id number]) OP-PT Subjective Patient Comments Patient Comments Working hard on her walking alignment, muscle activation, seeing progress Patient Reported Progress Same PT-OP-G Mobility & Gait Start: 12/16/18 14:33 Freq: Status: Active Protocol: Document 12/16/18 14:33 SAK (Rec: 12/18/18 09:42 [facility] [id number]) OP Mobility Evaluation Bed Mobility Rolling painful Supine to and from Sit painful Transfers Sit to Stand painful Functional Movements Squats braces LE's together OP Gait Assessment Gait Gait Assistance Required: Independent Assistive Devices Assistive Device None Gait Deviations General Gait Pattern Antalgic,Decreased Stride Length,Decreased Feet Clearance,Wide Based Gait Factors Limiting Gait Function Factors Limiting Gait Function Pain PT-OP-J Posture/Palpation/Skin Start: 12/16/18 14:33 Freq: Status: Active Protocol: Document 12/16/18 14:33 [facility] (Rec: 12/18/18 09:42 [facility] [id number]) Posture Evaluation Position Standing Head/C-Spine Posture Forward Head T-Spine Posture Fixed Scoliosis on (R), Increased Kyphosis L-Spine Posture Flattened Scapula Posture (L) Protracted,(R) Protracted Arm Posture (L) Internally Rotated,(R) Internally Rotated Hip Posture (L) Flexed,(R) Flexed,(L) Externally Rotated,(R) Externally Rotated Knee Posture (L) Genu Valgus Palpation Assessment Location left piriformis Palpation Findings Tenderness left greater trochanter\ Palpation Findings Tenderness Skin Assessment Other Assessments Skin Assessment Comments skin intact lumbar spine, hip and buttock PT-OP-K Range of Motion Start: 12/16/18 14:33 Freq: Status: Active Protocol: Document 12/16/18 14:33 SAK (Rec: 12/18/18 09:42 [facility] [id number]) Lumbar Spine Range of Motion Lumbar Spine Active Testing Position Standing Flexion 20 Extension 0 Rotation Left 15 Rotation Right 15 Lateral Flexion Left 35 Lateral Flexion Right 30 ROM Limitations Soft Tissue Tightness,Pain Hip Goniometric Range of Motion Hip Left Hip ROM WFL Yes Flexion w/Knee Flexed 90 Straight Leg Raise 65 Extension 0 Abduction 25 Internal Rotation 15 External Rotation 55 right Testing Position Supine Flexion w/Knee Flexed 100 Straight Leg Raise 65 Extension 0 Abduction 25 Internal Rotation 20 External Rotation 55 Hip ROM Limitations Hip ROM Limitations Pain Comments unable to hold left LE in SLR, pain with all hip motions Knee Goniometric Range of Motion Knee meño Knee ROM WFL Yes Ankle and Foot Goniometric Range of Motion Ankle and Foot meño Ankle/Foot ROM WFL Yes PT-OP-L Special Tests Start: 12/16/18 14:33 Freq: Status: Active Protocol: Document 12/16/18 14:33 [facility] (Rec: 12/18/18 09:42 [facility] [id number]) Special Tests Lumbar Spine Special Tests Compression Test Results negative Slump Test Results negative Hip Special Tests Straight Leg Raise Test Results positive left for pain Piriformis Test Results positive for pain left PT-OP-M Strength Start: 12/16/18 14:33 Freq: Status: Active Protocol: Document 12/16/18 14:33 [facility] (Rec: 12/18/18 09:42 [facility] [id number]) Trunk Strength Trunk Manual Muscle Testing Testing Position Supine Flexion 3+ Fair+ Extension 4- Good- Core Stabilization poor activation of TrA Hip Strength Hip Manual Muscle Testing Left Flexion (L2) 3+ Fair+ Extension (S1) 2+ Poor+ Abduction 3- Fair- External Rotation 3- Fair- Internal Rotation 3+ Fair+ Right Flexion (L2) 4 Good Extension (S1) 3- Fair- Abduction 4- Good- Adduction 3 Fair External Rotation 4 Good Internal Rotation 4+ Good+ Knee Strength Knee Manual Muscle Testing meño Flexion (S2) 4+ Good+ Extension (L3) 4+ Good+ Ankle/Foot Strength Ankle and Foot Manual Muscle Testing meño Dorsiflexion (L4) 4+ Good+ Plantarflexion (S1) 4+ Good+ PT-OP-Q Treatments Start: 12/16/18 14:33 Freq: Status: Active Protocol: Document 01/26/19 08:14 [facility] (Rec: 01/26/19 08:59 [facility] [id number]) Cardio Equipment Recumbent Stepper (Sci-Fit) Duration (Minutes) 6 Resistance 2.0 Other emphasis on neutral LE alignment Gym Equipment Shuttle Recovery Unilateral Squats Resistance 50# Shuttle Recovery Platform Stable Reps/Time 2x10 Bilateral Squats Resistance 75# Shuttle Recovery Platform Stable Reps/Time 2x10 Sport Cord green Exercise Details forward and side Reps/Duration 8 min Comments mirror for visual feedback, plus verbal and manual cues Therapeutic Exercises Supine Exercises ITB stretch Side bilateral hip flex stretch Side bilateral Reps/Minutes 2x Comments side of plinth TrA with march Reps/Minutes 10x Standing Exercises squats Reps/Minutes 10x SLS Comments unweighting only, not full SLS step-up Reps/Minutes 10x Comments emphasis on gluteal activation weight shift with gluteal activation Reps/Minutes 10x Other Exercises bosu lunges Other Exercise Name bosu lunges Side bilateral Reps/Minutes 10 Gait Training Gait Activity gait with cane Device Used SPC Treatment Focus gluteal activation, upright posture Manual Therapy Treatment Soft Tissue Mobilization left IT band Mobilization Type Instrument Assisted Intensity/Depth Moderate Body Position Sidelying PT-OP-R Modalities Start: 12/16/18 14:33 Freq: Status: Active Protocol: Document 01/26/19 08:14 SAK (Rec: 01/26/19 08:59 SAK [id number]) Hot Pack/Cold Pack Treatment Hot Pack Location left hip and lumbar spine Patient Position Sidelying Treatment Duration (minutes) 15 PT-OP-S Aquatic Treatment Start: 12/16/18 14:33 Freq: Status: Active Protocol: Document 01/28/19 12:30 SAK (Rec: 01/29/19 17:54 [facility] [id number]) Aquatics Treatment Pool Entry/Exit Pool Entry/Exit Method Stairs Assistance Independent Water Walking Lunge Walk Water Level Chest Level Walking Equipment UE paddles Level of Assistance Verbal Cues march Water Level Chest Level Walking Equipment UE paddles Level of Assistance Verbal Cues Sideways Water Level Chest Level Walking Equipment UE paddles Level of Assistance Verbal Cues backward Water Level Chest Level Walking Equipment UE paddles Level of Assistance Verbal Cues forward Water Level Chest Level Walking Equipment UE paddles Level of Assistance Verbal Cues Lower Extremity Exercises hip circles Body Position Standing Water Level Chest Level Reps/Duration 10x ea Cw, CCW Comments min UE support hip flex/ext Body Position Standing Water Level Chest Level Reps/Duration 10x Comments no UE support Hip abduction Body Position Standing Water Level Chest Level Comments no UE support step-ups Details up/down forward Body Position Standing Equipment 8 box Comments single leg squats Body Position Standing Water Level Chest Level Reps/Duration 10x2 Lower Extremity Stretches hip flexor Body Position Standing Water Level Chest Level Equipment Small Noodle Reps/Duration 2x30 quad Body Position Standing Water Level Chest Level Equipment Small Noodle Reps/Duration 2x30 ITB Body Position Standing Water Level Chest Level Equipment Large Noodle HS Body Position Standing Water Level Chest Level Equipment Large Noodle Balance SLS-static Water Level Waist Level Reps/Duration 5 min Comments cues for neutral pelvis [place] Activities [place] Activities Bicycle,Bicycle Backwards, Cross [place],Running Equipment flotation belt (XL) PT-OP-T Assessment and Plan Start: 12/16/18 14:33 Freq: Status: Active Protocol: Document 01/28/19 12:30 [facility] (Rec: 01/29/19 17:49 [facility] [id number]) Physical Therapy Assessment Goals Four Impairment weakness bilateral hips and core Short Term Goal (STG) Patient to be independent and compliant with HEP with ongoing progression 01/26/19: good goal progress, patient highly compliant. We continue to progress her HEP. STG Duration 01/20/19 Tower Climber Goal (LTG) Patient to demonstrate core and hip muscle strength of at least 4+/5 LTG Duration 03/18/19 Three Impairment functional mobility and activity tolerance Owestry 56% Short Term Goal (STG) Decrease Oswestry disability index score to no greater than 40% 01/26/19: not retested today, verbally patient reporting increased activity tolerance, decreased pain STG Duration 01/20/19 Tower Climber Goal (LTG) Decrease Oswestry disability index score to no greater than 20% and return to her usual activities LTG Duration 03/18/19 Two Impairment antalgic gait Short Term Goal (STG) Patient able to walk with minimal limp using least restrictive assistive device indoors 01/26/19: patient able to walk with single point cane with minimal limp/compensation STG Duration 01/20/19 Tower Climber Goal (LTG) Patient able to walk in the house with no device without limp, and with least restrictive device with outdoor gait LTG Duration 03/18/19 One Impairment pain Short Term Goal (STG) decrease pain to no greater than 3/10 01/26/19: good progress, knee pain largest issue today. STG Duration 01/20/19 Fci Goal (LTG) decrease pain to no greater than 2/10 with all usual activities LTG Duration 03/18/19 Assessment Summary Assessment Good attention to her alignment and muscle activation, frequent verbal and manual cues including facilitation of left hip ER with step-ups today; decreased pain noted with facilitation. Gait improving. Physical Therapy Plan Frequency and Duration Frequency of Treatment 2x/Week Duration of Treatment 12 wks Plan of Care Start Date 12/16/18 Plan of Care End Date 03/18/19 Therapeutic Interventions Therapeutic Interventions Aquatic Therapy,Gait Training, Home Exercise Program,Manual Therapy,Neuromuscular Re- education,Patient/Caregiver Education,Self-Care/Home Management,Soft Tissue Mobilization,Taping, Therapeutic Activities, Therapeutic Exercises Modalities Cold Pack/Ice Massage,Electric Stimulation,Hot Packs, Iontophoresis,Traction- Mechanical,Ultrasound Next Visit Focus/Plan Next Note Type Treatment Note Next Visit Plan video gait on treadmill from side next land-based PT.
--- NOTE | 2019-02-02 15:22 | PT.OTN ---
Current Diagnoses Radiculopathy, lumbar region (02/02/19) Difficulty in walking, not elsewhere classified (02/02/19) Abnormal posture (02/02/19) Weakness (02/02/19) Other specified injury of muscle, fascia and tendon of the posterior muscle group at thigh level, left thigh, initial encounter (02/02/19) Physical Therapy Treatment Note PT-OP-A Visit Information Start: 12/16/18 14:33 Freq: Status: Active Protocol: Document 02/02/19 10:30 LJ (Rec: 02/02/19 15:22 LJ [id number]) Out-Patient Physical Therapy Visit Information Visit Information Visit Type Aquatic Treatment Note Visit Start Time 10:30 Visit Stop Time 11:00 Total Visit Minutes 30 Visit Number 12 Number of GRAIN II FARMWORKER Visits 1 Evaluation Information Evaluation Date 12/16/18 Precautions Precautions PMH: arthritis, history of falls, bilateral TKA's, right MILADY, left hip fracture with ORIF. PT-OP-B Current Condition Start: 12/16/18 14:33 Freq: Status: Active Protocol: Document 12/18/18 14:55 SAK (Rec: 12/21/18 13:06 SAK [id number]) Current Condition History of Current Condition Onset Date 2 months Current Complaints left hip and thigh pain History of Current Condition Gradual onset worsening left hip and posterior thigh pain, mild increase in LBP. Now with very limited walking due to pain, unable to do yardwork due to pain. Developed abcess in vaginal area, hasn't been able to go to pool since September 2018, plus 2 bladder infections in past couple months; just finished antibiotics yesterday. No orthotics, wears compression stockings knee high meño. Not using any ice or heat, sleeps on back with pillow under knees or in chair . Reports 2 years of occasional tingling left foot. Left knee gives way at times, step to pattern on stairs due to left knee pain Prior Treatments and Tests MRI showed narrowing in spinal canal and L3-4 History of prior Right MILADY, bilaterl TKA's, left ORIF. Future Testing and Treatments Planned getting cortisone shot in lumbar spine Saturday12/23/18 Personal Factors Other Personal Factors That May Effect Muscle soreness after Therapy/Recovery evaluation PT-OP-C Subjective Start: 12/16/18 14:33 Freq: Status: Active Protocol: Document 02/02/19 10:30 LJ (Rec: 02/02/19 15:22 LJ [id number]) OP-PT Subjective Patient Comments Patient Comments Pt states her hip has been bothering her lately but unshure why. Her activity level has not changed. Pt arrived 15 min late. PT-OP-G Mobility & Gait Start: 12/16/18 14:33 Freq: Status: Active Protocol: Document 12/16/18 14:33 SAK (Rec: 12/18/18 09:42 SAK [id number]) OP Mobility Evaluation Bed Mobility Rolling painful Supine to and from Sit painful Transfers Sit to Stand painful Functional Movements Squats braces LE's together OP Gait Assessment Gait Gait Assistance Required: Independent Assistive Devices Assistive Device None Gait Deviations General Gait Pattern Antalgic,Decreased Stride Length,Decreased Feet Clearance,Wide Based Gait Factors Limiting Gait Function Factors Limiting Gait Function Pain PT-OP-J Posture/Palpation/Skin Start: 12/16/18 14:33 Freq: Status: Active Protocol: Document 12/16/18 14:33 SAK (Rec: 12/18/18 09:42 SAK [id number]) Posture Evaluation Position Standing Head/C-Spine Posture Forward Head T-Spine Posture Fixed Scoliosis on (R), Increased Kyphosis L-Spine Posture Flattened Scapula Posture (L) Protracted,(R) Protracted Arm Posture (L) Internally Rotated,(R) Internally Rotated Hip Posture (L) Flexed,(R) Flexed,(L) Externally Rotated,(R) Externally Rotated Knee Posture (L) Genu Valgus Palpation Assessment Location left piriformis Palpation Findings Tenderness left greater trochanter\ Palpation Findings Tenderness Skin Assessment Other Assessments Skin Assessment Comments skin intact lumbar spine, hip and buttock PT-OP-K Range of Motion Start: 12/16/18 14:33 Freq: Status: Active Protocol: Document 12/16/18 14:33 SAK (Rec: 12/18/18 09:42 SAK [id number]) Lumbar Spine Range of Motion Lumbar Spine Active Testing Position Standing Flexion 20 Extension 0 Rotation Left 15 Rotation Right 15 Lateral Flexion Left 35 Lateral Flexion Right 30 ROM Limitations Soft Tissue Tightness,Pain Hip Goniometric Range of Motion Hip Left Hip ROM WFL Yes Flexion w/Knee Flexed 90 Straight Leg Raise 65 Extension 0 Abduction 25 Internal Rotation 15 External Rotation 55 right Testing Position Supine Flexion w/Knee Flexed 100 Straight Leg Raise 65 Extension 0 Abduction 25 Internal Rotation 20 External Rotation 55 Hip ROM Limitations Hip ROM Limitations Pain Comments unable to hold left LE in SLR, pain with all hip motions Knee Goniometric Range of Motion Knee meño Knee ROM WFL Yes Ankle and Foot Goniometric Range of Motion Ankle and Foot meño Ankle/Foot ROM WFL Yes PT-OP-L Special Tests Start: 12/16/18 14:33 Freq: Status: Active Protocol: Document 12/16/18 14:33 [facility] (Rec: 12/18/18 09:42 [facility] [id number]) Special Tests Lumbar Spine Special Tests Compression Test Results negative Slump Test Results negative Hip Special Tests Straight Leg Raise Test Results positive left for pain Piriformis Test Results positive for pain left PT-OP-M Strength Start: 12/16/18 14:33 Freq: Status: Active Protocol: Document 12/16/18 14:33 [facility] (Rec: 12/18/18 09:42 [facility] [id number]) Trunk Strength Trunk Manual Muscle Testing Testing Position Supine Flexion 3+ Fair+ Extension 4- Good- Core Stabilization poor activation of TrA Hip Strength Hip Manual Muscle Testing Left Flexion (L2) 3+ Fair+ Extension (S1) 2+ Poor+ Abduction 3- Fair- External Rotation 3- Fair- Internal Rotation 3+ Fair+ Right Flexion (L2) 4 Good Extension (S1) 3- Fair- Abduction 4- Good- Adduction 3 Fair External Rotation 4 Good Internal Rotation 4+ Good+ Knee Strength Knee Manual Muscle Testing meño Flexion (S2) 4+ Good+ Extension (L3) 4+ Good+ Ankle/Foot Strength Ankle and Foot Manual Muscle Testing meño Dorsiflexion (L4) 4+ Good+ Plantarflexion (S1) 4+ Good+ PT-OP-Q Treatments Start: 12/16/18 14:33 Freq: Status: Active Protocol: Document 01/26/19 08:14 SAK (Rec: 01/26/19 08:59 [facility] [id number]) Cardio Equipment Recumbent Stepper (Sci-Fit) Duration (Minutes) 6 Resistance 2.0 Other emphasis on neutral LE alignment Gym Equipment Shuttle Recovery Unilateral Squats Resistance 50# Shuttle Recovery Platform Stable Reps/Time 2x10 Bilateral Squats Resistance 75# Shuttle Recovery Platform Stable Reps/Time 2x10 Sport Cord green Exercise Details forward and side Reps/Duration 8 min Comments mirror for visual feedback, plus verbal and manual cues Therapeutic Exercises Supine Exercises ITB stretch Side bilateral hip flex stretch Side bilateral Reps/Minutes 2x Comments side of plinth TrA with march Reps/Minutes 10x Standing Exercises squats Reps/Minutes 10x SLS Comments unweighting only, not full SLS step-up Reps/Minutes 10x Comments emphasis on gluteal activation weight shift with gluteal activation Reps/Minutes 10x Other Exercises bosu lunges Other Exercise Name bosu lunges Side bilateral Reps/Minutes 10 Gait Training Gait Activity gait with cane Device Used SPC Treatment Focus gluteal activation, upright posture Manual Therapy Treatment Soft Tissue Mobilization left IT band Mobilization Type Instrument Assisted Intensity/Depth Moderate Body Position Sidelying PT-OP-R Modalities Start: 12/16/18 14:33 Freq: Status: Active Protocol: Document 01/26/19 08:14 SAK (Rec: 01/26/19 08:59 SAK [id number]) Hot Pack/Cold Pack Treatment Hot Pack Location left hip and lumbar spine Patient Position Sidelying Treatment Duration (minutes) 15 PT-OP-S Aquatic Treatment Start: 12/16/18 14:33 Freq: Status: Active Protocol: Document 02/02/19 10:30 LJ (Rec: 02/02/19 15:22 LJ [email or web address]) Aquatics Treatment Pool Entry/Exit Pool Entry/Exit Method Stairs Assistance Independent Water Walking Lunge Walk Water Level Chest Level Walking Equipment UE paddles Level of Assistance Verbal Cues march Water Level Chest Level Walking Equipment UE paddles Level of Assistance Verbal Cues Sideways Water Level Chest Level Walking Equipment UE paddles Level of Assistance Verbal Cues backward Water Level Chest Level Walking Equipment UE paddles Level of Assistance Verbal Cues forward Water Level Chest Level Walking Equipment UE paddles Level of Assistance Verbal Cues Lower Extremity Exercises hip circles Body Position Standing Water Level Chest Level Reps/Duration 10x ea Cw, CCW Comments min UE support hip flex/ext Body Position Standing Water Level Chest Level Reps/Duration 10x Comments no UE support Hip abduction Body Position Standing Water Level Chest Level Comments no UE support step-ups Details up/down forward Body Position Standing Equipment 8 box Comments single leg PT-OP-T Assessment and Plan Start: 12/16/18 14:33 Freq: Status: Active Protocol: Document 02/02/19 10:30 LJ (Rec: 02/02/19 15:22 LJ [id number]) Physical Therapy Assessment Rehab Potential Rehabilitation Potential Good Evaluation Complexity Number of Personal Factors/Comorbidities 3 or More Number of Body Systems Impaired 3 Clinical Presentation at Evaluation Evolving Impairments Impairments Functional Mobility,Gait,Pain, Strength Goals Four Impairment weakness bilateral hips and core Short Term Goal (STG) Patient to be independent and compliant with HEP with ongoing progression 01/26/19: good goal progress, patient highly compliant. We continue to progress her HEP. STG Duration 01/20/19 Intermediate Goal (LTG) Patient to demonstrate core and hip muscle strength of at least 4+/5 LTG Duration 03/18/19 Three Impairment functional mobility and activity tolerance Owestry 56% Short Term Goal (STG) Decrease Oswestry disability index score to no greater than 40% 01/26/19: not retested today, verbally patient reporting increased activity tolerance, decreased pain STG Duration 01/20/19 Intermediate Goal (LTG) Decrease Oswestry disability index score to no greater than 20% and return to her usual activities LTG Duration 03/18/19 Two Impairment antalgic gait Short Term Goal (STG) Patient able to walk with minimal limp using least restrictive assistive device indoors 01/26/19: patient able to walk with single point cane with minimal limp/compensation STG Duration 01/20/19 Sales Operations Manager Goal (LTG) Patient able to walk in the house with no device without limp, and with least restrictive device with outdoor gait LTG Duration 03/18/19 One Impairment pain Short Term Goal (STG) decrease pain to no greater than 3/10 01/26/19: good progress, knee pain largest issue today. STG Duration 01/20/19 Sales Operations Manager Goal (LTG) decrease pain to no greater than 2/10 with all usual activities LTG Duration 03/18/19 Progress Towards Goals Progress Towards Goals Progressing Toward Goals Assessment Summary Assessment Pt balance improving with walking in water seamus. when going slowly. Pt says she is getting stronger but is still having trouble with knee valgus during ambulation. Pt remained in the water to continue exercising on her own for another 15 minutes. Physical Therapy Plan Frequency and Duration Frequency of Treatment 2x/Week Duration of Treatment 12 wks Plan of Care Start Date 12/16/18 Plan of Care End Date 03/18/19 Therapeutic Interventions Therapeutic Interventions Aquatic Therapy,Gait Training, Home Exercise Program,Manual Therapy,Neuromuscular Re- education,Patient/Caregiver Education,Self-Care/Home Management,Soft Tissue Mobilization,Taping, Therapeutic Activities, Therapeutic Exercises Modalities Cold Pack/Ice Massage,Electric Stimulation,Hot Packs, Iontophoresis,Traction- Mechanical,Ultrasound Next Visit Focus/Plan Next Note Type Treatment Note Next Visit Plan Revisit squats using a band for hip ER activation. Side stepping with hydroband for increased resistance
--- NOTE | 2019-02-04 15:51 | PT.OTN ---
Current Diagnoses Radiculopathy, lumbar region (02/04/19) Difficulty in walking, not elsewhere classified (02/04/19) Abnormal posture (02/04/19) Weakness (02/04/19) Other specified injury of muscle, fascia and tendon of the posterior muscle group at thigh level, left thigh, initial encounter (02/04/19) Physical Therapy Treatment Note PT-OP-A Visit Information Start: 12/16/18 14:33 Freq: Status: Active Protocol: Document 02/04/19 09:05 SAK (Rec: 02/04/19 09:48 [facility] [id number]) Out-Patient Physical Therapy Visit Information Visit Information Visit Type Aquatic Treatment Note Visit Start Time 09:00 Visit Stop Time 11:00 Total Visit Minutes 55 Visit Number 13 Number of 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 Now with very limited walking due to pain, unable to do yardwork due to pain. Developed abcess in vaginal area, hasn't been able to go to pool since September 2018, plus 2 bladder infections in past couple months; just finished antibiotics yesterday. No orthotics, wears compression stockings knee high meño. Not using any ice or heat, sleeps on back with pillow under knees or in chair . Reports 2 years of occasional tingling left foot. Left knee gives way at times, step to pattern on stairs due to left knee pain Prior Treatments and Tests MRI showed narrowing in spinal canal and L3-4 History of prior Right MILADY, bilaterl TKA's, left ORIF. Future Testing and Treatments Planned getting cortisone shot in lumbar spine Saturday12/23/18 Personal Factors Other Personal Factors That May Effect Muscle soreness after Therapy/Recovery evaluation PT-OP-C Subjective Start: 12/16/18 14:33 Freq: Status: Active Protocol: Document 02/04/19 09:05 SAK (Rec: 02/04/19 09:48 SAK [id number]) OP-PT Subjective Patient Comments Patient Comments Reports feeling her alignment is improving. Walked 1 mile after aquatic therapy had only mild fatigue and minimal soreness in buttock, some pain in hip joint. PT-OP-G Mobility & Gait Start: 12/16/18 14:33 Freq: Status: Active Protocol: Document 12/16/18 14:33 [facility] (Rec: 12/18/18 09:42 [facility] [id number]) OP Mobility Evaluation Bed Mobility Rolling painful Supine to and from Sit painful Transfers Sit to Stand painful Functional Movements Squats braces LE's together OP Gait Assessment Gait Gait Assistance Required: Independent Assistive Devices Assistive Device None Gait Deviations General Gait Pattern Antalgic,Decreased Stride Length,Decreased Feet Clearance,Wide Based Gait Factors Limiting Gait Function Factors Limiting Gait Function Pain PT-OP-J Posture/Palpation/Skin Start: 12/16/18 14:33 Freq: Status: Active Protocol: Document 12/16/18 14:33 [facility] (Rec: 12/18/18 09:42 [facility] [id number]) Posture Evaluation Position Standing Head/C-Spine Posture Forward Head T-Spine Posture Fixed Scoliosis on (R), Increased Kyphosis L-Spine Posture Flattened Scapula Posture (L) Protracted,(R) Protracted Arm Posture (L) Internally Rotated,(R) Internally Rotated Hip Posture (L) Flexed,(R) Flexed,(L) Externally Rotated,(R) Externally Rotated Knee Posture (L) Genu Valgus Palpation Assessment Location left piriformis Palpation Findings Tenderness left greater trochanter\ Palpation Findings Tenderness Skin Assessment Other Assessments Skin Assessment Comments skin intact lumbar spine, hip and buttock PT-OP-K Range of Motion Start: 12/16/18 14:33 Freq: Status: Active Protocol: Document 12/16/18 14:33 [facility] (Rec: 12/18/18 09:42 [facility] [id number]) Lumbar Spine Range of Motion Lumbar Spine Active Testing Position Standing Flexion 20 Extension 0 Rotation Left 15 Rotation Right 15 Lateral Flexion Left 35 Lateral Flexion Right 30 ROM Limitations Soft Tissue Tightness,Pain Hip Goniometric Range of Motion Hip Left Hip ROM WFL Yes Flexion w/Knee Flexed 90 Straight Leg Raise 65 Extension 0 Abduction 25 Internal Rotation 15 External Rotation 55 right Testing Position Supine Flexion w/Knee Flexed 100 Straight Leg Raise 65 Extension 0 Abduction 25 Internal Rotation 20 External Rotation 55 Hip ROM Limitations Hip ROM Limitations Pain Comments unable to hold left LE in SLR, pain with all hip motions Knee Goniometric Range of Motion Knee meño Knee ROM WFL Yes Ankle and Foot Goniometric Range of Motion Ankle and Foot meño Ankle/Foot ROM WFL Yes PT-OP-L Special Tests Start: 12/16/18 14:33 Freq: Status: Active Protocol: Document 12/16/18 14:33 [facility] (Rec: 12/18/18 09:42 [facility] [id number]) Special Tests Lumbar Spine Special Tests Compression Test Results negative Slump Test Results negative Hip Special Tests Straight Leg Raise Test Results positive left for pain Piriformis Test Results positive for pain left PT-OP-M Strength Start: 12/16/18 14:33 Freq: Status: Active Protocol: Document 12/16/18 14:33 [facility] (Rec: 12/18/18 09:42 [facility] [id number]) Trunk Strength Trunk Manual Muscle Testing Testing Position Supine Flexion 3+ Fair+ Extension 4- Good- Core Stabilization poor activation of TrA Hip Strength Hip Manual Muscle Testing Left Flexion (L2) 3+ Fair+ Extension (S1) 2+ Poor+ Abduction 3- Fair- External Rotation 3- Fair- Internal Rotation 3+ Fair+ Right Flexion (L2) 4 Good Extension (S1) 3- Fair- Abduction 4- Good- Adduction 3 Fair External Rotation 4 Good Internal Rotation 4+ Good+ Knee Strength Knee Manual Muscle Testing meño Flexion (S2) 4+ Good+ Extension (L3) 4+ Good+ Ankle/Foot Strength Ankle and Foot Manual Muscle Testing meño Dorsiflexion (L4) 4+ Good+ Plantarflexion (S1) 4+ Good+ PT-OP-Q Treatments Start: 12/16/18 14:33 Freq: Status: Active Protocol: Document 02/04/19 09:05 [facility] (Rec: 02/04/19 09:48 [facility] [id number]) Cardio Equipment Recumbent Stepper (Sci-Fit) Duration (Minutes) 8 Resistance 2.0-2.5 Other emphasis on neutral LE alignment Gym Equipment Shuttle Recovery Unilateral Squats Resistance 62# Shuttle Recovery Platform Stable Reps/Time 2x10 Bilateral Squats Resistance 100# Shuttle Recovery Platform Stable Reps/Time 2x10 Shuttle Balance chains red Details balance and wt shift Reps/Duration 5 min Comments mirror for visual feedback Therapeutic Exercises Supine Exercises hip flex stretch Side bilateral Reps/Minutes 2x Comments side of plinth Standing Exercises quad and hip flexor stretch Side bilateral Equipment Used therapy ball under foot Reps/Minutes 5 SLS Comments unweighting only, not full SLS Gait Training Gait Activity treadmill Comments video taken from back, side and front with patient phone for reference/education gait with cane Device Used SPC Treatment Focus gluteal activation, upright posture Comments mirror for visual feedback Manual Therapy Treatment Soft Tissue Mobilization left IT band Mobilization Type Instrument Assisted Intensity/Depth Moderate Body Position Sidelying Self-Care/Home Management Treatment Education Other Education review of video of gait, discussion of compensatory patterns and activities/ exercises to address. PT-OP-R Modalities Start: 12/16/18 14:33 Freq: Status: Active Protocol: Document 02/04/19 09:05 SAK (Rec: 02/04/19 09:48 SAK [id number]) Hot Pack/Cold Pack Treatment Hot Pack Location left hip and lumbar spine Patient Position Sidelying Treatment Duration (minutes) 15 PT-OP-S Aquatic Treatment Start: 12/16/18 14:33 Freq: Status: Active Protocol: Document 02/02/19 10:30 DRAKE (Rec: 02/02/19 15:22 LJ [id number]) Aquatics Treatment Pool Entry/Exit Pool Entry/Exit Method Stairs Assistance Independent Water Walking Lunge Walk Water Level Chest Level Walking Equipment UE paddles Level of Assistance Verbal Cues march Water Level Chest Level Walking Equipment UE paddles Level of Assistance Verbal Cues Sideways Water Level Chest Level Walking Equipment UE paddles Level of Assistance Verbal Cues backward Water Level Chest Level Walking Equipment UE paddles Level of Assistance Verbal Cues forward Water Level Chest Level Walking Equipment UE paddles Level of Assistance Verbal Cues Lower Extremity Exercises hip circles Body Position Standing Water Level Chest Level Reps/Duration 10x ea Cw, CCW Comments min UE support hip flex/ext Body Position Standing Water Level Chest Level Reps/Duration 10x Comments no UE support Hip abduction Body Position Standing Water Level Chest Level Comments no UE support step-ups Details up/down forward Body Position Standing Equipment 8 box Comments single leg PT-OP-T Assessment and Plan Start: 12/16/18 14:33 Freq: Status: Active Protocol: Document 02/04/19 09:05 SAK (Rec: 02/04/19 09:48 SAK [id number]) Physical Therapy Assessment Rehab Potential Rehabilitation Potential Good Evaluation Complexity Number of Personal Factors/Comorbidities 3 or More Number of Body Systems Impaired 3 Clinical Presentation at Evaluation Evolving Impairments Impairments Functional Mobility,Gait,Pain, Strength Goals Four Impairment weakness bilateral hips and core Short Term Goal (STG) Patient to be independent and compliant with HEP with ongoing progression 01/26/19: good goal progress, patient highly compliant. We continue to progress her HEP. STG Duration 01/20/19 Technical Systems Architect Goal (LTG) Patient to demonstrate core and hip muscle strength of at least 4+/5 LTG Duration 03/18/19 Three Impairment functional mobility and activity tolerance [place] 56% Short Term Goal (STG) Decrease Oswestry disability index score to no greater than 40% 01/26/19: not retested today, verbally patient reporting increased activity tolerance, decreased pain STG Duration 01/20/19 Nursing Home Goal (LTG) Decrease Oswestry disability index score to no greater than 20% and return to her usual activities LTG Duration 03/18/19 Two Impairment antalgic gait Short Term Goal (STG) Patient able to walk with minimal limp using least restrictive assistive device indoors 01/26/19: patient able to walk with single point cane with minimal limp/compensation STG Duration 01/20/19 Technical Systems Architect Goal (LTG) Patient able to walk in the house with no device without limp, and with least restrictive device with outdoor gait LTG Duration 03/18/19 One Impairment pain Short Term Goal (STG) decrease pain to no greater than 3/10 01/26/19: good progress, knee pain largest issue today. STG Duration 01/20/19 Nursing Home Goal (LTG) decrease pain to no greater than 2/10 with all usual activities LTG Duration 03/18/19 Progress Towards Goals Progress Towards Goals Progressing Toward Goals Assessment Summary Assessment Patient reports improving strength and decreased pain, improved LE alignment; this noted by PT as well. Varying ability to correct her gait with biggest improvement observed being more upright posture and increased speed and stability. Trendelenberg on left persists. Physical Therapy Plan Frequency and Duration Frequency of Treatment 2x/Week Duration of Treatment 12 wks Plan of Care Start Date 12/16/18 Plan of Care End Date 03/18/19 Therapeutic Interventions Therapeutic Interventions Aquatic Therapy,Gait Training, Home Exercise Program,Manual Therapy,Neuromuscular Re- education,Patient/Caregiver Education,Self-Care/Home Management,Soft Tissue Mobilization,Taping, Therapeutic Activities, Therapeutic Exercises Modalities Cold Pack/Ice Massage,Electric Stimulation,Hot Packs, Iontophoresis,Traction- Mechanical,Ultrasound Next Visit Focus/Plan Next Note Type Treatment Note Next Visit Plan Squats with theraband, sidestep with resistance, progression of sport cord activities and functional hip strengthening.
--- NOTE | 2019-02-09 10:15 | PT.OTN ---
Current Diagnoses Radiculopathy, lumbar region (02/09/19) Difficulty in walking, not elsewhere classified (02/09/19) Abnormal posture (02/09/19) Weakness (02/09/19) Other specified injury of muscle, fascia and tendon of the posterior muscle group at thigh level, left thigh, initial encounter (02/09/19) Physical Therapy Treatment Note PT-OP-A Visit Information Start: 12/16/18 14:33 Freq: Status: Active Protocol: Document 02/09/19 10:15 SAK (Rec: 02/10/19 09:30 [facility] [id number]) Out-Patient Physical Therapy Visit Information Visit Information Visit Type Aquatic Treatment Note Visit Start Time 10:15 Visit Stop Time 11:00 Total Visit Minutes 45 Visit Number 14 Number of BANKRUPTCY LEGAL ASSISTANT Visits 0 Precautions Precautions PMH: arthritis, history of falls, bilateral TKA's, right MILADY, left hip fracture with ORIF. PT-OP-B Current Condition Start: 12/16/18 14:33 Freq: Status: Active Protocol: Document 12/18/18 14:55 SAK (Rec: 12/21/18 13:06 [facility] [id number]) Current Condition History of Current Condition Onset Date 2 months Current Complaints left hip and thigh pain History of Current Condition Gradual onset worsening left hip and posterior thigh pain, mild increase in LBP. Now with very limited walking due to pain, unable to do yardwork due to pain. Developed abcess in vaginal area, hasn't been able to go to pool since September 2018, plus 2 bladder infections in past couple months; just finished antibiotics yesterday. No orthotics, wears compression stockings knee high meño. Not using any ice or heat, sleeps on back with pillow under knees or in chair . Reports 2 years of occasional tingling left foot. Left knee gives way at times, step to pattern on stairs due to left knee pain Prior Treatments and Tests MRI showed narrowing in spinal canal and L3-4 History of prior Right MILADY, bilaterl TKA's, left ORIF. Future Testing and Treatments Planned getting cortisone shot in lumbar spine Saturday12/23/18 Personal Factors Other Personal Factors That May Effect Muscle soreness after Therapy/Recovery evaluation PT-OP-C Subjective Start: 12/16/18 14:33 Freq: Status: Active Protocol: Document 02/09/19 10:15 SAK (Rec: 02/10/19 09:30 [facility] [id number]) OP-PT Subjective Patient Comments Patient Comments States she is frustrated that she has such a hard time changing her gait. States minimal hip pain at this time though her thoracic and lumbar spines have been hurting. PT-OP-G Mobility & Gait Start: 12/16/18 14:33 Freq: Status: Active Protocol: Document 12/16/18 14:33 [facility] (Rec: 12/18/18 09:42 [facility] [id number]) OP Mobility Evaluation Bed Mobility Rolling painful Supine to and from Sit painful Transfers Sit to Stand painful Functional Movements Squats braces LE's together OP Gait Assessment Gait Gait Assistance Required: Independent Assistive Devices Assistive Device None Gait Deviations General Gait Pattern Antalgic,Decreased Stride Length,Decreased Feet Clearance,Wide Based Gait Factors Limiting Gait Function Factors Limiting Gait Function Pain PT-OP-J Posture/Palpation/Skin Start: 12/16/18 14:33 Freq: Status: Active Protocol: Document 12/16/18 14:33 [facility] (Rec: 12/18/18 09:42 [facility] [id number]) Posture Evaluation Position Standing Head/C-Spine Posture Forward Head T-Spine Posture Fixed Scoliosis on (R), Increased Kyphosis L-Spine Posture Flattened Scapula Posture (L) Protracted,(R) Protracted Arm Posture (L) Internally Rotated,(R) Internally Rotated Hip Posture (L) Flexed,(R) Flexed,(L) Externally Rotated,(R) Externally Rotated Knee Posture (L) Genu Valgus Palpation Assessment Location left piriformis Palpation Findings Tenderness left greater trochanter\ Palpation Findings Tenderness Skin Assessment Other Assessments Skin Assessment Comments skin intact lumbar spine, hip and buttock PT-OP-K Range of Motion Start: 12/16/18 14:33 Freq: Status: Active Protocol: Document 12/16/18 14:33 [facility] (Rec: 12/18/18 09:42 [facility] [id number]) Lumbar Spine Range of Motion Lumbar Spine Active Testing Position Standing Flexion 20 Extension 0 Rotation Left 15 Rotation Right 15 Lateral Flexion Left 35 Lateral Flexion Right 30 ROM Limitations Soft Tissue Tightness,Pain Hip Goniometric Range of Motion Hip Left Hip ROM WFL Yes Flexion w/Knee Flexed 90 Straight Leg Raise 65 Extension 0 Abduction 25 Internal Rotation 15 External Rotation 55 right Testing Position Supine Flexion w/Knee Flexed 100 Straight Leg Raise 65 Extension 0 Abduction 25 Internal Rotation 20 External Rotation 55 Hip ROM Limitations Hip ROM Limitations Pain Comments unable to hold left LE in SLR, pain with all hip motions Knee Goniometric Range of Motion Knee meño Knee ROM WFL Yes Ankle and Foot Goniometric Range of Motion Ankle and Foot meño Ankle/Foot ROM WFL Yes PT-OP-L Special Tests Start: 12/16/18 14:33 Freq: Status: Active Protocol: Document 12/16/18 14:33 [facility] (Rec: 12/18/18 09:42 [facility] [id number]) Special Tests Lumbar Spine Special Tests Compression Test Results negative Slump Test Results negative Hip Special Tests Straight Leg Raise Test Results positive left for pain Piriformis Test Results positive for pain left PT-OP-M Strength Start: 12/16/18 14:33 Freq: Status: Active Protocol: Document 12/16/18 14:33 [facility] (Rec: 12/18/18 09:42 [facility] [id number]) Trunk Strength Trunk Manual Muscle Testing Testing Position Supine Flexion 3+ Fair+ Extension 4- Good- Core Stabilization poor activation of TrA Hip Strength Hip Manual Muscle Testing Left Flexion (L2) 3+ Fair+ Extension (S1) 2+ Poor+ Abduction 3- Fair- External Rotation 3- Fair- Internal Rotation 3+ Fair+ Right Flexion (L2) 4 Good Extension (S1) 3- Fair- Abduction 4- Good- Adduction 3 Fair External Rotation 4 Good Internal Rotation 4+ Good+ Knee Strength Knee Manual Muscle Testing meño Flexion (S2) 4+ Good+ Extension (L3) 4+ Good+ Ankle/Foot Strength Ankle and Foot Manual Muscle Testing meño Dorsiflexion (L4) 4+ Good+ Plantarflexion (S1) 4+ Good+ PT-OP-Q Treatments Start: 12/16/18 14:33 Freq: Status: Active Protocol: Document 02/04/19 09:05 [facility] (Rec: 02/04/19 09:48 [facility] [id number]) Cardio Equipment Recumbent Stepper (Sci-Fit) Duration (Minutes) 8 Resistance 2.0-2.5 Other emphasis on neutral LE alignment Gym Equipment Shuttle Recovery Unilateral Squats Resistance 62# Shuttle Recovery Platform Stable Reps/Time 2x10 Bilateral Squats Resistance 100# Shuttle Recovery Platform Stable Reps/Time 2x10 Shuttle Balance chains red Details balance and wt shift Reps/Duration 5 min Comments mirror for visual feedback Therapeutic Exercises Supine Exercises hip flex stretch Side bilateral Reps/Minutes 2x Comments side of plinth Standing Exercises quad and hip flexor stretch Side bilateral Equipment Used therapy ball under foot Reps/Minutes 5 SLS Comments unweighting only, not full SLS Gait Training Gait Activity treadmill Comments video taken from back, side and front with patient phone for reference/education gait with cane Device Used SPC Treatment Focus gluteal activation, upright posture Comments mirror for visual feedback Manual Therapy Treatment Soft Tissue Mobilization left IT band Mobilization Type Instrument Assisted Intensity/Depth Moderate Body Position Sidelying Self-Care/Home Management Treatment Education Other Education review of video of gait, discussion of compensatory patterns and activities/ exercises to address. PT-OP-R Modalities Start: 12/16/18 14:33 Freq: Status: Active Protocol: Document 02/04/19 09:05 [facility] (Rec: 02/04/19 09:48 SAK [id number]) Hot Pack/Cold Pack Treatment Hot Pack Location left hip and lumbar spine Patient Position Sidelying Treatment Duration (minutes) 15 PT-OP-S Aquatic Treatment Start: 12/16/18 14:33 Freq: Status: Active Protocol: Document 02/09/19 10:15 [facility] (Rec: 02/10/19 09:33 [facility] [id number]) Aquatics Treatment Pool Entry/Exit Pool Entry/Exit Method Stairs Assistance Independent Water Walking Lunge Walk Water Level Chest Level Walking Equipment UE paddles Level of Assistance Verbal Cues march Water Level Chest Level Walking Equipment UE paddles Level of Assistance Verbal Cues Sideways Water Level Chest Level Walking Equipment UE paddles Level of Assistance Verbal Cues backward Water Level Chest Level Walking Equipment UE paddles Level of Assistance Verbal Cues forward Water Level Chest Level Walking Equipment UE paddles Level of Assistance Verbal Cues Lower Extremity Stretches hip flexor Body Position Standing Water Level Chest Level Equipment Small Noodle Reps/Duration 2x30 quad Body Position Standing Water Level Chest Level Equipment Small Noodle Reps/Duration 2x30 ITB Body Position Standing Water Level Chest Level Equipment Large Noodle HS Body Position Standing Water Level Chest Level Equipment Large Noodle Balance SLS-static Water Level Waist Level Reps/Duration 5 min Comments cues for neutral pelvis [place] Activities [place] Activities Bicycle,Bicycle Backwards, Cross Country,Running Other Activities bicycle forward holding barbells at sides DLS with medium barbells: pulldowns and pendulum Equipment flotation belt (XL) Comments verbal and manual cues for technique PT-OP-T Assessment and Plan Start: 12/16/18 14:33 Freq: Status: Active Protocol: Document 02/09/19 10:15 MICHELLE (Rec: 02/10/19 09:30 [facility] [id number]) Physical Therapy Assessment Goals Four Impairment weakness bilateral hips and core Short Term Goal (STG) Patient to be independent and compliant with HEP with ongoing progression 01/26/19: good goal progress, patient highly compliant. We continue to progress her HEP. STG Duration 01/20/19 Shelter Goal (LTG) Patient to demonstrate core and hip muscle strength of at least 4+/5 LTG Duration 03/18/19 Three Impairment functional mobility and activity tolerance [place] 56% Short Term Goal (STG) Decrease Oswestry disability index score to no greater than 40% 01/26/19: not retested today, verbally patient reporting increased activity tolerance, decreased pain STG Duration 01/20/19 Shelter Goal (LTG) Decrease Oswestry disability index score to no greater than 20% and return to her usual activities LTG Duration 03/18/19 Two Impairment antalgic gait Short Term Goal (STG) Patient able to walk with minimal limp using least restrictive assistive device indoors 01/26/19: patient able to walk with single point cane with minimal limp/compensation STG Duration 01/20/19 Shelter Goal (LTG) Patient able to walk in the house with no device without limp, and with least restrictive device with outdoor gait LTG Duration 03/18/19 One Impairment pain Short Term Goal (STG) decrease pain to no greater than 3/10 01/26/19: good progress, knee pain largest issue today. STG Duration 01/20/19 Shelter Goal (LTG) decrease pain to no greater than 2/10 with all usual activities LTG Duration 03/18/19 Assessment Summary Assessment Feel patient's increase in spinal pain likely due to increased trunk extension with posterior positioning of thoracic spine with her efforts to correct her posture , without initiating correction from pelvis; she demonstrated good understanding of this when discussed and practiced. Physical Therapy Plan Frequency and Duration Frequency of Treatment 2x/Week Duration of Treatment 12 wks Plan of Care Start Date 12/16/18 Plan of Care End Date 03/18/19 Therapeutic Interventions Therapeutic Interventions Aquatic Therapy,Gait Training, Home Exercise Program,Manual Therapy,Neuromuscular Re- education,Patient/Caregiver Education,Self-Care/Home Management,Soft Tissue Mobilization,Taping, Therapeutic Activities, Therapeutic Exercises Modalities Cold Pack/Ice Massage,Electric Stimulation,Hot Packs, Iontophoresis,Traction- Mechanical,Ultrasound Next Visit Focus/Plan Next Note Type Treatment Note Next Visit Plan Continue progression of hip strengthening, gait training, functional retraining and patient education, modalities as needed for pain.
--- NOTE | 2019-02-13 16:17 | PT.OTN ---
Current Diagnoses Radiculopathy, lumbar region (02/13/19) Difficulty in walking, not elsewhere classified (02/13/19) Abnormal posture (02/13/19) Weakness (02/13/19) Other specified injury of muscle, fascia and tendon of the posterior muscle group at thigh level, left thigh, initial encounter (02/13/19) Physical Therapy Treatment Note PT-OP-A Visit Information Start: 12/16/18 14:33 Freq: Status: Active Protocol: Document 02/13/19 09:00 DRAKE (Rec: 02/13/19 16:17 LJ [id number]) Out-Patient Physical Therapy Visit Information Visit Information Visit Type Treatment Note Visit Start Time 09:00 Visit Stop Time 09:46 Total Visit Minutes 46 Visit Number 15 Number of HYDRAULIC DREDGE OPERATOR Visits 1 Precautions Precautions PMH: arthritis, history of falls, bilateral TKA's, right MILADY, left hip fracture with ORIF. PT-OP-B Current Condition Start: 12/16/18 14:33 Freq: Status: Active Protocol: Document 12/18/18 14:55 SAK (Rec: 12/21/18 13:06 SAK [id number]) Current Condition History of Current Condition Onset Date 2 months Current Complaints left hip and thigh pain History of Current Condition Gradual onset worsening left hip and posterior thigh pain, mild increase in LBP. Now with very limited walking due to pain, unable to do yardwork due to pain. Developed abcess in vaginal area, hasn't been able to go to pool since September 2018, plus 2 bladder infections in past couple months; just finished antibiotics yesterday. No orthotics, wears compression stockings knee high meño. Not using any ice or heat, sleeps on back with pillow under knees or in chair . Reports 2 years of occasional tingling left foot. Left knee gives way at times, step to pattern on stairs due to left knee pain Prior Treatments and Tests MRI showed narrowing in spinal canal and L3-4 History of prior Right MILADY, bilaterl TKA's, left ORIF. Future Testing and Treatments Planned getting cortisone shot in lumbar spine Saturday12/23/18 Personal Factors Other Personal Factors That May Effect Muscle soreness after Therapy/Recovery evaluation PT-OP-C Subjective Start: 12/16/18 14:33 Freq: Status: Active Protocol: Document 02/13/19 09:00 LJ (Rec: 02/13/19 16:17 LJ [id number]) OP-PT Subjective Patient Comments Patient Comments Pt states she feels she is not progressing with gait or strength and cannot seem to keep her knees from falling inward. PT-OP-G Mobility & Gait Start: 12/16/18 14:33 Freq: Status: Active Protocol: Document 12/16/18 14:33 SAK (Rec: 12/18/18 09:42 SAK [id number]) OP Mobility Evaluation Bed Mobility Rolling painful Supine to and from Sit painful Transfers Sit to Stand painful Functional Movements Squats braces LE's together OP Gait Assessment Gait Gait Assistance Required: Independent Assistive Devices Assistive Device None Gait Deviations General Gait Pattern Antalgic,Decreased Stride Length,Decreased Feet Clearance,Wide Based Gait Factors Limiting Gait Function Factors Limiting Gait Function Pain PT-OP-J Posture/Palpation/Skin Start: 12/16/18 14:33 Freq: Status: Active Protocol: Document 12/16/18 14:33 SAK (Rec: 12/18/18 09:42 SAK [id number]) Posture Evaluation Position Standing Head/C-Spine Posture Forward Head T-Spine Posture Fixed Scoliosis on (R), Increased Kyphosis L-Spine Posture Flattened Scapula Posture (L) Protracted,(R) Protracted Arm Posture (L) Internally Rotated,(R) Internally Rotated Hip Posture (L) Flexed,(R) Flexed,(L) Externally Rotated,(R) Externally Rotated Knee Posture (L) Genu Valgus Palpation Assessment Location left piriformis Palpation Findings Tenderness left greater trochanter\ Palpation Findings Tenderness Skin Assessment Other Assessments Skin Assessment Comments skin intact lumbar spine, hip and buttock PT-OP-K Range of Motion Start: 12/16/18 14:33 Freq: Status: Active Protocol: Document 12/16/18 14:33 SAK (Rec: 12/18/18 09:42 SAK [id number]) Lumbar Spine Range of Motion Lumbar Spine Active Testing Position Standing Flexion 20 Extension 0 Rotation Left 15 Rotation Right 15 Lateral Flexion Left 35 Lateral Flexion Right 30 ROM Limitations Soft Tissue Tightness,Pain Hip Goniometric Range of Motion Hip Left Hip ROM WFL Yes Flexion w/Knee Flexed 90 Straight Leg Raise 65 Extension 0 Abduction 25 Internal Rotation 15 External Rotation 55 right Testing Position Supine Flexion w/Knee Flexed 100 Straight Leg Raise 65 Extension 0 Abduction 25 Internal Rotation 20 External Rotation 55 Hip ROM Limitations Hip ROM Limitations Pain Comments unable to hold left LE in SLR, pain with all hip motions Knee Goniometric Range of Motion Knee meño Knee ROM WFL Yes Ankle and Foot Goniometric Range of Motion Ankle and Foot meño Ankle/Foot ROM WFL Yes PT-OP-L Special Tests Start: 12/16/18 14:33 Freq: Status: Active Protocol: Document 12/16/18 14:33 SAK (Rec: 12/18/18 09:42 SAK [id number]) Special Tests Lumbar Spine Special Tests Compression Test Results negative Slump Test Results negative Hip Special Tests Straight Leg Raise Test Results positive left for pain Piriformis Test Results positive for pain left PT-OP-M Strength Start: 12/16/18 14:33 Freq: Status: Active Protocol: Document 12/16/18 14:33 SAK (Rec: 12/18/18 09:42 SAK [id number]) Trunk Strength Trunk Manual Muscle Testing Testing Position Supine Flexion 3+ Fair+ Extension 4- Good- Core Stabilization poor activation of TrA Hip Strength Hip Manual Muscle Testing Left Flexion (L2) 3+ Fair+ Extension (S1) 2+ Poor+ Abduction 3- Fair- External Rotation 3- Fair- Internal Rotation 3+ Fair+ Right Flexion (L2) 4 Good Extension (S1) 3- Fair- Abduction 4- Good- Adduction 3 Fair External Rotation 4 Good Internal Rotation 4+ Good+ Knee Strength Knee Manual Muscle Testing meño Flexion (S2) 4+ Good+ Extension (L3) 4+ Good+ Ankle/Foot Strength Ankle and Foot Manual Muscle Testing meño Dorsiflexion (L4) 4+ Good+ Plantarflexion (S1) 4+ Good+ PT-OP-Q Treatments Start: 12/16/18 14:33 Freq: Status: Active Protocol: Document 02/13/19 09:00 DRAKE (Rec: 02/13/19 16:17 LJ [id number]) Cardio Equipment Recumbent Stepper (Sci-Fit) Duration (Minutes) 6 Resistance 2.0-2.5 Other emphasis on neutral LE alignment; added band on knee for stabilization Gym Equipment Cable Column (Body Solid) Leg Extension Details bilat and uni Resistance #20 bilat, #10 uni Reps/Time 15 bilat, 10 uni Shuttle Recovery Unilateral Squats Resistance 62# Shuttle Recovery Platform Stable Reps/Time 2x10 Bilateral Squats Resistance 100# Shuttle Recovery Platform Stable Reps/Time 2x10 Therapeutic Exercises Supine Exercises hip flex stretch Side bilateral Reps/Minutes 2x Comments side of plinth TrA with march Reps/Minutes 10x TrA with hip ab/ER Reps/Minutes 10x TrA activation Reps/Minutes 5x Standing Exercises hip ab/ad Standing Exercise Name hip dips Side bilateral Reps/Minutes 12 Comments standing in // bars during gait training weight shift with gluteal activation Reps/Minutes 10x Comments during gait training Gait Training Gait Activity SLS in gait training Description SLS in gait training Comments stepping forward to load LLE during gait and activating glute for hip abd to prevent hip drop in Trendelenburg PT-OP-R Modalities Start: 12/16/18 14:33 Freq: Status: Active Protocol: Document 02/04/19 09:05 [facility] (Rec: 02/04/19 09:48 [facility] [id number]) Hot Pack/Cold Pack Treatment Hot Pack Location left hip and lumbar spine Patient Position Sidelying Treatment Duration (minutes) 15 PT-OP-S Aquatic Treatment Start: 12/16/18 14:33 Freq: Status: Active Protocol: Document 02/09/19 10:15 [facility] (Rec: 02/10/19 09:33 [facility] [id number]) Aquatics Treatment Pool Entry/Exit Pool Entry/Exit Method Stairs Assistance Independent Water Walking Lunge Walk Water Level Chest Level Walking Equipment UE paddles Level of Assistance Verbal Cues march Water Level Chest Level Walking Equipment UE paddles Level of Assistance Verbal Cues Sideways Water Level Chest Level Walking Equipment UE paddles Level of Assistance Verbal Cues backward Water Level Chest Level Walking Equipment UE paddles Level of Assistance Verbal Cues forward Water Level Chest Level Walking Equipment UE paddles Level of Assistance Verbal Cues Lower Extremity Stretches hip flexor Body Position Standing Water Level Chest Level Equipment Small Noodle Reps/Duration 2x30 quad Body Position Standing Water Level Chest Level Equipment Small Noodle Reps/Duration 2x30 ITB Body Position Standing Water Level Chest Level Equipment Large Noodle HS Body Position Standing Water Level Chest Level Equipment Large Noodle Balance SLS-static Water Level Waist Level Reps/Duration 5 min Comments cues for neutral pelvis [place] Activities [place] Activities Bicycle,Bicycle Backwards, Cross Country,Running Other Activities bicycle forward holding barbells at sides DLS with medium barbells: pulldowns and pendulum Equipment flotation belt (XL) Comments verbal and manual cues for technique PT-OP-T Assessment and Plan Start: 12/16/18 14:33 Freq: Status: Active Protocol: Document 02/13/19 09:00 DRAKE (Rec: 02/13/19 16:17 DRAKE [id number]) Physical Therapy Assessment Goals Four Impairment weakness bilateral hips and core Short Term Goal (STG) Patient to be independent and compliant with HEP with ongoing progression 01/26/19: good goal progress, patient highly compliant. We continue to progress her HEP. STG Duration 01/20/19 Senior Living Goal (LTG) Patient to demonstrate core and hip muscle strength of at least 4+/5 LTG Duration 03/18/19 Three Impairment functional mobility and activity tolerance [place] 56% Short Term Goal (STG) Decrease Oswestry disability index score to no greater than 40% 01/26/19: not retested today, verbally patient reporting increased activity tolerance, decreased pain STG Duration 01/20/19 Senior Living Goal (LTG) Decrease Oswestry disability index score to no greater than 20% and return to her usual activities LTG Duration 03/18/19 Two Impairment antalgic gait Short Term Goal (STG) Patient able to walk with minimal limp using least restrictive assistive device indoors 01/26/19: patient able to walk with single point cane with minimal limp/compensation STG Duration 01/20/19 Senior Living Goal (LTG) Patient able to walk in the house with no device without limp, and with least restrictive device with outdoor gait LTG Duration 03/18/19 One Impairment pain Short Term Goal (STG) decrease pain to no greater than 3/10 01/26/19: good progress, knee pain largest issue today. STG Duration 01/20/19 Market Stall Vendor Goal (LTG) decrease pain to no greater than 2/10 with all usual activities LTG Duration 03/18/19 Assessment Summary Assessment Pt expressing some frustration with slow progress. Was given gait exercises to perform at home including loading LLE and performing hip abduction while slowly walking forward. Stated she does not like gum equipment but was encouraged to use the equipment at the pool to perform LE and gluteal strengthening. Physical Therapy Plan Frequency and Duration Frequency of Treatment 2x/Week Duration of Treatment 12 wks Plan of Care Start Date 12/16/18 Plan of Care End Date 03/18/19 Therapeutic Interventions Therapeutic Interventions Aquatic Therapy,Gait Training, Home Exercise Program,Manual Therapy,Neuromuscular Re- education,Patient/Caregiver Education,Self-Care/Home Management,Soft Tissue Mobilization,Taping, Therapeutic Activities, Therapeutic Exercises Modalities Cold Pack/Ice Massage,Electric Stimulation,Hot Packs, Iontophoresis,Traction- Mechanical,Ultrasound Next Visit Focus/Plan Next Note Type Treatment Note Next Visit Plan Progress gait training without SPC in // bars to reduce Trendelenberg gait and strengthen gluteal muscles. Continue with quad and hamstring strengthening to improve LE strength.
--- NOTE | 2019-02-18 16:11 | PT.OTN ---
Current Diagnoses Radiculopathy, lumbar region (02/18/19) Difficulty in walking, not elsewhere classified (02/18/19) Abnormal posture (02/18/19) Weakness (02/18/19) Other specified injury of muscle, fascia and tendon of the posterior muscle group at thigh level, left thigh, initial encounter (02/18/19) Physical Therapy Treatment Note PT-OP-A Visit Information Start: 12/16/18 14:33 Freq: Status: Active Protocol: Document 02/18/19 11:45 DRAKE (Rec: 02/18/19 16:11 LJ [id number]) Out-Patient Physical Therapy Visit Information Visit Information Visit Type Aquatic Treatment Note Visit Start Time 11:45 Visit Stop Time 12:30 Total Visit Minutes 45 Visit Number 16 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 PT-OP-B Current Condition Start: 12/16/18 14:33 Freq: Status: Active Protocol: Document 12/18/18 14:55 SAK (Rec: 12/21/18 13:06 SAK [id number]) Current Condition History of Current Condition Onset Date 2 months Current Complaints left hip and thigh pain History of Current Condition Gradual onset worsening left hip and posterior thigh pain, mild increase in LBP. Now with very limited walking due to pain, unable to do yardwork due to pain. Developed abcess in vaginal area, hasn't been able to go to pool since September 2018, plus 2 bladder infections in past couple months; just finished antibiotics yesterday. No orthotics, wears compression stockings knee high meño. Not using any ice or heat, sleeps on back with pillow under knees or in chair . Reports 2 years of occasional tingling left foot. Left knee gives way at times, step to pattern on stairs due to left knee pain Prior Treatments and Tests MRI showed narrowing in spinal canal and L3-4 History of prior Right MILADY, bilaterl TKA's, left ORIF. Future Testing and Treatments Planned getting cortisone shot in lumbar spine Saturday12/23/18 Personal Factors Other Personal Factors That May Effect Muscle soreness after Therapy/Recovery evaluation PT-OP-C Subjective Start: 12/16/18 14:33 Freq: Status: Active Protocol: Document 02/18/19 11:45 LJ (Rec: 02/18/19 16:11 LJ [id number]) OP-PT Subjective Patient Comments Patient Comments Pt reports that she has pain in left side of back today which started a few days ago. Pointed to apex of left scapular area and attachment of QL. PT-OP-G Mobility & Gait Start: 12/16/18 14:33 Freq: Status: Active Protocol: Document 12/16/18 14:33 SAK (Rec: 12/18/18 09:42 SAK [id number]) OP Mobility Evaluation Bed Mobility Rolling painful Supine to and from Sit painful Transfers Sit to Stand painful Functional Movements Squats braces LE's together OP Gait Assessment Gait Gait Assistance Required: Independent Assistive Devices Assistive Device None Gait Deviations General Gait Pattern Antalgic,Decreased Stride Length,Decreased Feet Clearance,Wide Based Gait Factors Limiting Gait Function Factors Limiting Gait Function Pain PT-OP-J Posture/Palpation/Skin Start: 12/16/18 14:33 Freq: Status: Active Protocol: Document 12/16/18 14:33 SAK (Rec: 12/18/18 09:42 SAK [id number]) Posture Evaluation Position Standing Head/C-Spine Posture Forward Head T-Spine Posture Fixed Scoliosis on (R), Increased Kyphosis L-Spine Posture Flattened Scapula Posture (L) Protracted,(R) Protracted Arm Posture (L) Internally Rotated,(R) Internally Rotated Hip Posture (L) Flexed,(R) Flexed,(L) Externally Rotated,(R) Externally Rotated Knee Posture (L) Genu Valgus Palpation Assessment Location left piriformis Palpation Findings Tenderness left greater trochanter\ Palpation Findings Tenderness Skin Assessment Other Assessments Skin Assessment Comments skin intact lumbar spine, hip and buttock PT-OP-K Range of Motion Start: 12/16/18 14:33 Freq: Status: Active Protocol: Document 12/16/18 14:33 SAK (Rec: 12/18/18 09:42 SAK [id number]) Lumbar Spine Range of Motion Lumbar Spine Active Testing Position Standing Flexion 20 Extension 0 Rotation Left 15 Rotation Right 15 Lateral Flexion Left 35 Lateral Flexion Right 30 ROM Limitations Soft Tissue Tightness,Pain Hip Goniometric Range of Motion Hip Left Hip ROM WFL Yes Flexion w/Knee Flexed 90 Straight Leg Raise 65 Extension 0 Abduction 25 Internal Rotation 15 External Rotation 55 right Testing Position Supine Flexion w/Knee Flexed 100 Straight Leg Raise 65 Extension 0 Abduction 25 Internal Rotation 20 External Rotation 55 Hip ROM Limitations Hip ROM Limitations Pain Comments unable to hold left LE in SLR, pain with all hip motions Knee Goniometric Range of Motion Knee meño Knee ROM WFL Yes Ankle and Foot Goniometric Range of Motion Ankle and Foot meño Ankle/Foot ROM WFL Yes PT-OP-L Special Tests Start: 12/16/18 14:33 Freq: Status: Active Protocol: Document 12/16/18 14:33 SAK (Rec: 12/18/18 09:42 SAK [id number]) Special Tests Lumbar Spine Special Tests Compression Test Results negative Slump Test Results negative Hip Special Tests Straight Leg Raise Test Results positive left for pain Piriformis Test Results positive for pain left PT-OP-M Strength Start: 12/16/18 14:33 Freq: Status: Active Protocol: Document 12/16/18 14:33 SAK (Rec: 12/18/18 09:42 SAK [id number]) Trunk Strength Trunk Manual Muscle Testing Testing Position Supine Flexion 3+ Fair+ Extension 4- Good- Core Stabilization poor activation of TrA Hip Strength Hip Manual Muscle Testing Left Flexion (L2) 3+ Fair+ Extension (S1) 2+ Poor+ Abduction 3- Fair- External Rotation 3- Fair- Internal Rotation 3+ Fair+ Right Flexion (L2) 4 Good Extension (S1) 3- Fair- Abduction 4- Good- Adduction 3 Fair External Rotation 4 Good Internal Rotation 4+ Good+ Knee Strength Knee Manual Muscle Testing meño Flexion (S2) 4+ Good+ Extension (L3) 4+ Good+ Ankle/Foot Strength Ankle and Foot Manual Muscle Testing meño Dorsiflexion (L4) 4+ Good+ Plantarflexion (S1) 4+ Good+ PT-OP-Q Treatments Start: 12/16/18 14:33 Freq: Status: Active Protocol: Document 02/13/19 09:00 DRAKE (Rec: 02/13/19 16:17 LJ [id number]) Cardio Equipment Recumbent Stepper (Sci-Fit) Duration (Minutes) 6 Resistance 2.0-2.5 Other emphasis on neutral LE alignment; added band on knee for stabilization Gym Equipment Cable Column (Body Solid) Leg Extension Details bilat and uni Resistance #20 bilat, #10 uni Reps/Time 15 bilat, 10 uni Shuttle Recovery Unilateral Squats Resistance 62# Shuttle Recovery Platform Stable Reps/Time 2x10 Bilateral Squats Resistance 100# Shuttle Recovery Platform Stable Reps/Time 2x10 Therapeutic Exercises Supine Exercises hip flex stretch Side bilateral Reps/Minutes 2x Comments side of plinth TrA with march Reps/Minutes 10x TrA with hip ab/ER Reps/Minutes 10x TrA activation Reps/Minutes 5x Standing Exercises hip ab/ad Standing Exercise Name hip dips Side bilateral Reps/Minutes 12 Comments standing in // bars during gait training weight shift with gluteal activation Reps/Minutes 10x Comments during gait training Gait Training Gait Activity SLS in gait training Description SLS in gait training Comments stepping forward to load LLE during gait and activating glute for hip abd to prevent hip drop in Trendelenburg PT-OP-R Modalities Start: 12/16/18 14:33 Freq: Status: Active Protocol: Document 02/04/19 09:05 SAK (Rec: 02/04/19 09:48 SAK [id number]) Hot Pack/Cold Pack Treatment Hot Pack Location left hip and lumbar spine Patient Position Sidelying Treatment Duration (minutes) 15 PT-OP-S Aquatic Treatment Start: 12/16/18 14:33 Freq: Status: Active Protocol: Document 02/18/19 11:45 LJ (Rec: 02/18/19 16:11 LJ [id number]) Aquatics Treatment Pool Entry/Exit Pool Entry/Exit Method Stairs Assistance Independent Water Walking [place] March Water Level Chest Level Comments reaching cross body Lunge Walk Water Level Chest Level march Water Level Chest Level Sideways Water Level Chest Level backward Water Level Chest Level forward Water Level Chest Level Lower Extremity Exercises hip circles Body Position Standing Water Level Chest Level Reps/Duration 10x ea Cw, CCW Comments min UE support hip flex/ext Body Position Standing Water Level Chest Level Reps/Duration 10x Comments no UE support Hip abduction Body Position Standing Water Level Chest Level Comments no UE support Lower Extremity Stretches hip flexor Body Position Standing Water Level Chest Level Equipment Small Noodle Reps/Duration 2x30 quad Body Position Standing Water Level Chest Level Equipment Small Noodle Reps/Duration 2x30 ITB Body Position Standing Water Level Chest Level Equipment Large Noodle HS Body Position Standing Water Level Chest Level Equipment Large Noodle Upper Extremity Stretches hanging on dive block Details LUE Water Level [place] Reps/Duration 15 sec x5 Spinal Exercises QL stretch Details at wall Body Position Standing Water Level Waist Level Reps/Duration 2x45 [place] Activities [place] Activities Bicycle,Cross [place] Manual Techniques Bad Ragaz supine for trunk mobility and QL stretch PT-OP-T Assessment and Plan Start: 12/16/18 14:33 Freq: Status: Active Protocol: Document 02/18/19 11:45 DRAKE (Rec: 02/18/19 16:11 DRAKE [id number]) Physical Therapy Assessment Goals Four Impairment weakness bilateral hips and core Short Term Goal (STG) Patient to be independent and compliant with HEP with ongoing progression 01/26/19: good goal progress, patient highly compliant. We continue to progress her HEP. STG Duration 01/20/19 Shelter Goal (LTG) Patient to demonstrate core and hip muscle strength of at least 4+/5 LTG Duration 03/18/19 Three Impairment functional mobility and activity tolerance [place] 56% Short Term Goal (STG) Decrease Oswestry disability index score to no greater than 40% 01/26/19: not retested today, verbally patient reporting increased activity tolerance, decreased pain STG Duration 01/20/19 Shelter Goal (LTG) Decrease Oswestry disability index score to no greater than 20% and return to her usual activities LTG Duration 03/18/19 Two Impairment antalgic gait Short Term Goal (STG) Patient able to walk with minimal limp using least restrictive assistive device indoors 01/26/19: patient able to walk with single point cane with minimal limp/compensation STG Duration 01/20/19 Shelter Goal (LTG) Patient able to walk in the house with no device without limp, and with least restrictive device with outdoor gait LTG Duration 03/18/19 One Impairment pain Short Term Goal (STG) decrease pain to no greater than 3/10 01/26/19: good progress, knee pain largest issue today. 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 Physical Therapy Plan Frequency and Duration Frequency of Treatment 2x/Week Duration of Treatment 12 wks Plan of Care Start Date 12/16/18 Plan of Care End Date 03/18/19 Therapeutic Interventions Therapeutic Interventions Aquatic Therapy,Gait Training, Home Exercise Program,Manual Therapy,Neuromuscular Re- education,Patient/Caregiver Education,Self-Care/Home Management,Soft Tissue Mobilization,Taping, Therapeutic Activities, Therapeutic Exercises Modalities Cold Pack/Ice Massage,Electric Stimulation,Hot Packs, Iontophoresis,Traction- Mechanical,Ultrasound Next Visit Focus/Plan Next Note Type Treatment Note Next Visit Plan Continue progression of LE strengthening and gait retraining to normalize gait. Assess reacton to QL stretching and continue if needed.
--- NOTE | 2019-02-20 14:34 | PT.OTN ---
Current Diagnoses Radiculopathy, lumbar region (02/20/19) Difficulty in walking, not elsewhere classified (02/20/19) Abnormal posture (02/20/19) Weakness (02/20/19) Other specified injury of muscle, fascia and tendon of the posterior muscle group at thigh level, left thigh, initial encounter (02/20/19) Physical Therapy Treatment Note PT-OP-A Visit Information Start: 12/16/18 14:33 Freq: Status: Active Protocol: Document 02/20/19 09:00 LJ (Rec: 02/20/19 10:29 LJ [id number]) Out-Patient Physical Therapy Visit Information Visit Information Visit Type Treatment Note Visit Start Time 09:00 Visit Stop Time 10:55 PT-OP-B Current Condition Start: 12/16/18 14:33 Freq: Status: Active Protocol: Document 12/18/18 14:55 SAK (Rec: 12/21/18 13:06 SAK [id number]) Current Condition History of Current Condition Onset Date 2 months Current Complaints left hip and thigh pain History of Current Condition Gradual onset worsening left hip and posterior thigh pain, mild increase in LBP. Now with very limited walking due to pain, unable to do yardwork due to pain. Developed abcess in vaginal area, hasn't been able to go to pool since September 2018, plus 2 bladder infections in past couple months; just finished antibiotics yesterday. No orthotics, wears compression stockings knee high meño. Not using any ice or heat, sleeps on back with pillow under knees or in chair . Reports 2 years of occasional tingling left foot. Left knee gives way at times, step to pattern on stairs due to left knee pain Prior Treatments and Tests MRI showed narrowing in spinal canal and L3-4 History of prior Right MILADY, bilaterl TKA's, left ORIF. Future Testing and Treatments Planned getting cortisone shot in lumbar spine Saturday12/23/18 Personal Factors Other Personal Factors That May Effect Muscle soreness after Therapy/Recovery evaluation PT-OP-C Subjective Start: 12/16/18 14:33 Freq: Status: Active Protocol: Document 02/20/19 09:00 LJ (Rec: 02/20/19 14:26 LJ [id number]) OP-PT Subjective Patient Comments Patient Comments Pt still c/o pain in left side QL area. She also states she is getting a cold. PT-OP-G Mobility & Gait Start: 12/16/18 14:33 Freq: Status: Active Protocol: Document 12/16/18 14:33 [facility] (Rec: 12/18/18 09:42 [facility] [id number]) OP Mobility Evaluation Bed Mobility Rolling painful Supine to and from Sit painful Transfers Sit to Stand painful Functional Movements Squats braces LE's together OP Gait Assessment Gait Gait Assistance Required: Independent Assistive Devices Assistive Device None Gait Deviations General Gait Pattern Antalgic,Decreased Stride Length,Decreased Feet Clearance,Wide Based Gait Factors Limiting Gait Function Factors Limiting Gait Function Pain PT-OP-J Posture/Palpation/Skin Start: 12/16/18 14:33 Freq: Status: Active Protocol: Document 12/16/18 14:33 [facility] (Rec: 12/18/18 09:42 [facility] [id number]) Posture Evaluation Position Standing Head/C-Spine Posture Forward Head T-Spine Posture Fixed Scoliosis on (R), Increased Kyphosis L-Spine Posture Flattened Scapula Posture (L) Protracted,(R) Protracted Arm Posture (L) Internally Rotated,(R) Internally Rotated Hip Posture (L) Flexed,(R) Flexed,(L) Externally Rotated,(R) Externally Rotated Knee Posture (L) Genu Valgus Palpation Assessment Location left piriformis Palpation Findings Tenderness left greater trochanter\ Palpation Findings Tenderness Skin Assessment Other Assessments Skin Assessment Comments skin intact lumbar spine, hip and buttock PT-OP-K Range of Motion Start: 12/16/18 14:33 Freq: Status: Active Protocol: Document 12/16/18 14:33 [facility] (Rec: 12/18/18 09:42 [facility] [id number]) Lumbar Spine Range of Motion Lumbar Spine Active Testing Position Standing Flexion 20 Extension 0 Rotation Left 15 Rotation Right 15 Lateral Flexion Left 35 Lateral Flexion Right 30 ROM Limitations Soft Tissue Tightness,Pain Hip Goniometric Range of Motion Hip Left Hip ROM WFL Yes Flexion w/Knee Flexed 90 Straight Leg Raise 65 Extension 0 Abduction 25 Internal Rotation 15 External Rotation 55 right Testing Position Supine Flexion w/Knee Flexed 100 Straight Leg Raise 65 Extension 0 Abduction 25 Internal Rotation 20 External Rotation 55 Hip ROM Limitations Hip ROM Limitations Pain Comments unable to hold left LE in SLR, pain with all hip motions Knee Goniometric Range of Motion Knee meño Knee ROM WFL Yes Ankle and Foot Goniometric Range of Motion Ankle and Foot meño Ankle/Foot ROM WFL Yes PT-OP-L Special Tests Start: 12/16/18 14:33 Freq: Status: Active Protocol: Document 12/16/18 14:33 SAK (Rec: 12/18/18 09:42 SAK [id number]) Special Tests Lumbar Spine Special Tests Compression Test Results negative Slump Test Results negative Hip Special Tests Straight Leg Raise Test Results positive left for pain Piriformis Test Results positive for pain left PT-OP-M Strength Start: 12/16/18 14:33 Freq: Status: Active Protocol: Document 12/16/18 14:33 SAK (Rec: 12/18/18 09:42 SAK [id number]) Trunk Strength Trunk Manual Muscle Testing Testing Position Supine Flexion 3+ Fair+ Extension 4- Good- Core Stabilization poor activation of TrA Hip Strength Hip Manual Muscle Testing Left Flexion (L2) 3+ Fair+ Extension (S1) 2+ Poor+ Abduction 3- Fair- External Rotation 3- Fair- Internal Rotation 3+ Fair+ Right Flexion (L2) 4 Good Extension (S1) 3- Fair- Abduction 4- Good- Adduction 3 Fair External Rotation 4 Good Internal Rotation 4+ Good+ Knee Strength Knee Manual Muscle Testing meño Flexion (S2) 4+ Good+ Extension (L3) 4+ Good+ Ankle/Foot Strength Ankle and Foot Manual Muscle Testing meño Dorsiflexion (L4) 4+ Good+ Plantarflexion (S1) 4+ Good+ PT-OP-Q Treatments Start: 12/16/18 14:33 Freq: Status: Active Protocol: Document 02/20/19 09:00 DRAKE (Rec: 02/20/19 14:26 LJ [id number]) Cardio Equipment Recumbent Stepper (Sci-Fit) Duration (Minutes) 6 Resistance 2.0-2.5 Other emphasis on neutral LE alignment Therapeutic Exercises Sidelying Exercises QL stretch Side bilateral Reps/Minutes 2 Comments manually assisted QL stretch-rib recoil Side bilateral Reps/Minutes 6 Comments with light massage also Gait Training Gait Activity //bars w/o cane Distance/Duration 18 Treatment Focus quad contraction and hip stability Comments gait in front of mirror with verbal cueing to stabilize hips and straighten knees. Visual feedback in mirror Manual Therapy Treatment Soft Tissue Mobilization QL Body Location left side Mobilization Type Cross-Friction,Sustained Pressure,Trigger Point Release Intensity/Depth Moderate Body Position Sidelying left IT band Mobilization Type Cross-Friction,Sustained Pressure,Trigger Point Release Intensity/Depth Moderate Body Position Sidelying PT-OP-R Modalities Start: 12/16/18 14:33 Freq: Status: Active Protocol: Document 02/20/19 09:00 DRAKE (Rec: 02/20/19 14:34 LJ [id number]) Hot Pack/Cold Pack Treatment Hot Pack Location left hip to knee Patient Position Sidelying Treatment Duration (minutes) 10 PT-OP-S Aquatic Treatment Start: 12/16/18 14:33 Freq: Status: Active Protocol: Document 02/18/19 11:45 LJ (Rec: 02/18/19 16:11 LJ [id number]) Aquatics Treatment Pool Entry/Exit Pool Entry/Exit Method Stairs Assistance Independent Water Walking [place] March Water Level Chest Level Comments reaching cross body Lunge Walk Water Level Chest Level march Water Level Chest Level Sideways Water Level Chest Level backward Water Level Chest Level forward Water Level Chest Level Lower Extremity Exercises hip circles Body Position Standing Water Level Chest Level Reps/Duration 10x ea Cw, CCW Comments min UE support hip flex/ext Body Position Standing Water Level Chest Level Reps/Duration 10x Comments no UE support Hip abduction Body Position Standing Water Level Chest Level Comments no UE support Lower Extremity Stretches hip flexor Body Position Standing Water Level Chest Level Equipment Small Noodle Reps/Duration 2x30 quad Body Position Standing Water Level Chest Level Equipment Small Noodle Reps/Duration 2x30 ITB Body Position Standing Water Level Chest Level Equipment Large Noodle HS Body Position Standing Water Level Chest Level Equipment Large Noodle Upper Extremity Stretches hanging on dive block Details LUE Water Level [place] Reps/Duration 15 sec x5 Spinal Exercises QL stretch Details at wall Body Position Standing Water Level Waist Level Reps/Duration 2x45 [place] Activities [place] Activities Bicycle,Cross [place] Manual Techniques Bad Ragaz supine for trunk mobility and QL stretch PT-OP-T Assessment and Plan Start: 12/16/18 14:33 Freq: Status: Active Protocol: Document 02/20/19 09:00 DRAKE (Rec: 02/20/19 14:26 LJ [id number]) Physical Therapy Assessment Rehab Potential Rehabilitation Potential Good Evaluation Complexity Number of Personal Factors/Comorbidities 3 or More Number of Body Systems Impaired 3 Clinical Presentation at Evaluation Evolving Impairments Impairments Functional Mobility,Gait,Pain, Strength Goals Four Impairment weakness bilateral hips and core Short Term Goal (STG) Patient to be independent and compliant with HEP with ongoing progression 01/26/19: good goal progress, patient highly compliant. We continue to progress her HEP. STG Duration 01/20/19 Fpc Goal (LTG) Patient to demonstrate core and hip muscle strength of at least 4+/5 LTG Duration 03/18/19 Three Impairment functional mobility and activity tolerance [place] 56% Short Term Goal (STG) Decrease Oswestry disability index score to no greater than 40% 01/26/19: not retested today, verbally patient reporting increased activity tolerance, decreased pain STG Duration 01/20/19 Fpc Goal (LTG) Decrease Oswestry disability index score to no greater than 20% and return to her usual activities LTG Duration 03/18/19 Two Impairment antalgic gait Short Term Goal (STG) Patient able to walk with minimal limp using least restrictive assistive device indoors 01/26/19: patient able to walk with single point cane with minimal limp/compensation STG Duration 01/20/19 Fpc Goal (LTG) Patient able to walk in the house with no device without limp, and with least restrictive device with outdoor gait LTG Duration 03/18/19 One Impairment pain Short Term Goal (STG) decrease pain to no greater than 3/10 01/26/19: good progress, knee pain largest issue today. STG Duration 01/20/19 Fpc Goal (LTG) decrease pain to no greater than 2/10 with all usual activities LTG Duration 03/18/19 Assessment Summary Assessment Pt responded very well to treatments stating she felt straighter and had less pain. Gait activities were productive as pt was able to see how she was not straightening knees and was able to correct in mirror. Pts gait was straighter at end of therapy. Physical Therapy Plan Frequency and Duration Frequency of Treatment 2x/Week Duration of Treatment 12 wks Plan of Care Start Date 12/16/18 Plan of Care End Date 03/18/19 Therapeutic Interventions Therapeutic Interventions Aquatic Therapy,Gait Training, Home Exercise Program,Manual Therapy,Neuromuscular Re- education,Patient/Caregiver Education,Self-Care/Home Management,Soft Tissue Mobilization,Taping, Therapeutic Activities, Therapeutic Exercises Modalities Cold Pack/Ice Massage,Electric Stimulation,Hot Packs, Iontophoresis,Traction- Mechanical,Ultrasound Next Visit Focus/Plan Next Note Type Treatment Note Next Visit Plan Continue with gait corrections and LE strengthening with correct body mechanics. Assess effect of QL recoil and stretch.
--- NOTE | 2019-02-23 12:30 | PT.OTN ---
Current Diagnoses Spondylosis without myelopathy or radiculopathy, lumbar region (02/20/19) Radiculopathy, lumbar region (02/20/19) Difficulty in walking, not elsewhere classified (02/20/19) Abnormal posture (02/20/19) Weakness (02/20/19) Other specified injury of muscle, fascia and tendon of the posterior muscle group at thigh level, left thigh, initial encounter (02/20/19) Physical Therapy Treatment Note PT-OP-A Visit Information Start: 12/16/18 14:33 Freq: Status: Active Protocol: Document 02/23/19 11:45 CLB (Rec: 02/23/19 14:49 CLB [id number]) Out-Patient Physical Therapy Visit Information Visit Information Visit Type Aquatic Treatment Note Visit Start Time 11:45 Visit Stop Time 12:30 Total Visit Minutes 45 Visit Number 18 Number of SILO PAINTER Visits 4 PT-OP-B Current Condition Start: 12/16/18 14:33 Freq: Status: Active Protocol: Document 12/18/18 14:55 SAK (Rec: 12/21/18 13:06 SAK [id number]) Current Condition History of Current Condition Onset Date 2 months Current Complaints left hip and thigh pain History of Current Condition Gradual onset worsening left hip and posterior thigh pain, mild increase in LBP. Now with very limited walking due to pain, unable to do yardwork due to pain. Developed abcess in vaginal area, hasn't been able to go to pool since September 2018, plus 2 bladder infections in past couple months; just finished antibiotics yesterday. No orthotics, wears compression stockings knee high meño. Not using any ice or heat, sleeps on back with pillow under knees or in chair . Reports 2 years of occasional tingling left foot. Left knee gives way at times, step to pattern on stairs due to left knee pain Prior Treatments and Tests MRI showed narrowing in spinal canal and L3-4 History of prior Right MILADY, bilaterl TKA's, left ORIF. Future Testing and Treatments Planned getting cortisone shot in lumbar spine Saturday12/23/18 Personal Factors Other Personal Factors That May Effect Muscle soreness after Therapy/Recovery evaluation PT-OP-C Subjective Start: 12/16/18 14:33 Freq: Status: Active Protocol: Document 02/23/19 11:45 CLB (Rec: 02/23/19 14:49 CLB [id number]) OP-PT Subjective Patient Comments Patient Comments Pt reports getting pain relief from manual therapy that she received at her last land therapy appt. PT-OP-G Mobility & Gait Start: 12/16/18 14:33 Freq: Status: Active Protocol: Document 12/16/18 14:33 SAK (Rec: 12/18/18 09:42 SAK [id number]) OP Mobility Evaluation Bed Mobility Rolling painful Supine to and from Sit painful Transfers Sit to Stand painful Functional Movements Squats braces LE's together OP Gait Assessment Gait Gait Assistance Required: Independent Assistive Devices Assistive Device None Gait Deviations General Gait Pattern Antalgic,Decreased Stride Length,Decreased Feet Clearance,Wide Based Gait Factors Limiting Gait Function Factors Limiting Gait Function Pain PT-OP-J Posture/Palpation/Skin Start: 12/16/18 14:33 Freq: Status: Active Protocol: Document 12/16/18 14:33 SAK (Rec: 12/18/18 09:42 [facility] [id number]) Posture Evaluation Position Standing Head/C-Spine Posture Forward Head T-Spine Posture Fixed Scoliosis on (R), Increased Kyphosis L-Spine Posture Flattened Scapula Posture (L) Protracted,(R) Protracted Arm Posture (L) Internally Rotated,(R) Internally Rotated Hip Posture (L) Flexed,(R) Flexed,(L) Externally Rotated,(R) Externally Rotated Knee Posture (L) Genu Valgus Palpation Assessment Location left piriformis Palpation Findings Tenderness left greater trochanter\ Palpation Findings Tenderness Skin Assessment Other Assessments Skin Assessment Comments skin intact lumbar spine, hip and buttock PT-OP-K Range of Motion Start: 12/16/18 14:33 Freq: Status: Active Protocol: Document 12/16/18 14:33 SAK (Rec: 12/18/18 09:42 SAK [id number]) Lumbar Spine Range of Motion Lumbar Spine Active Testing Position Standing Flexion 20 Extension 0 Rotation Left 15 Rotation Right 15 Lateral Flexion Left 35 Lateral Flexion Right 30 ROM Limitations Soft Tissue Tightness,Pain Hip Goniometric Range of Motion Hip Left Hip ROM WFL Yes Flexion w/Knee Flexed 90 Straight Leg Raise 65 Extension 0 Abduction 25 Internal Rotation 15 External Rotation 55 right Testing Position Supine Flexion w/Knee Flexed 100 Straight Leg Raise 65 Extension 0 Abduction 25 Internal Rotation 20 External Rotation 55 Hip ROM Limitations Hip ROM Limitations Pain Comments unable to hold left LE in SLR, pain with all hip motions Knee Goniometric Range of Motion Knee meño Knee ROM WFL Yes Ankle and Foot Goniometric Range of Motion Ankle and Foot meño Ankle/Foot ROM WFL Yes PT-OP-L Special Tests Start: 12/16/18 14:33 Freq: Status: Active Protocol: Document 12/16/18 14:33 SAK (Rec: 12/18/18 09:42 SAK [id number]) Special Tests Lumbar Spine Special Tests Compression Test Results negative Slump Test Results negative Hip Special Tests Straight Leg Raise Test Results positive left for pain Piriformis Test Results positive for pain left PT-OP-M Strength Start: 12/16/18 14:33 Freq: Status: Active Protocol: Document 12/16/18 14:33 SAK (Rec: 12/18/18 09:42 SAK [id number]) Trunk Strength Trunk Manual Muscle Testing Testing Position Supine Flexion 3+ Fair+ Extension 4- Good- Core Stabilization poor activation of TrA Hip Strength Hip Manual Muscle Testing Left Flexion (L2) 3+ Fair+ Extension (S1) 2+ Poor+ Abduction 3- Fair- External Rotation 3- Fair- Internal Rotation 3+ Fair+ Right Flexion (L2) 4 Good Extension (S1) 3- Fair- Abduction 4- Good- Adduction 3 Fair External Rotation 4 Good Internal Rotation 4+ Good+ Knee Strength Knee Manual Muscle Testing meño Flexion (S2) 4+ Good+ Extension (L3) 4+ Good+ Ankle/Foot Strength Ankle and Foot Manual Muscle Testing meño Dorsiflexion (L4) 4+ Good+ Plantarflexion (S1) 4+ Good+ PT-OP-Q Treatments Start: 12/16/18 14:33 Freq: Status: Active Protocol: Document 02/20/19 09:00 DRAKE (Rec: 02/20/19 14:26 LJ [id number]) Cardio Equipment Recumbent Stepper (Sci-Fit) Duration (Minutes) 6 Resistance 2.0-2.5 Other emphasis on neutral LE alignment Therapeutic Exercises Sidelying Exercises QL stretch Side bilateral Reps/Minutes 2 Comments manually assisted QL stretch-rib recoil Side bilateral Reps/Minutes 6 Comments with light massage also Gait Training Gait Activity //bars w/o cane Distance/Duration 18 Treatment Focus quad contraction and hip stability Comments gait in front of mirror with verbal cueing to stabilize hips and straighten knees. Visual feedback in mirror Manual Therapy Treatment Soft Tissue Mobilization QL Body Location left side Mobilization Type Cross-Friction,Sustained Pressure,Trigger Point Release Intensity/Depth Moderate Body Position Sidelying left IT band Mobilization Type Cross-Friction,Sustained Pressure,Trigger Point Release Intensity/Depth Moderate Body Position Sidelying PT-OP-R Modalities Start: 12/16/18 14:33 Freq: Status: Active Protocol: Document 02/20/19 09:00 LJ (Rec: 02/20/19 14:34 LJ [id number]) Hot Pack/Cold Pack Treatment Hot Pack Location left hip to knee Patient Position Sidelying Treatment Duration (minutes) 10 PT-OP-S Aquatic Treatment Start: 12/16/18 14:33 Freq: Status: Active Protocol: Document 02/23/19 11:45 CLB (Rec: 02/23/19 14:49 CLB [id number]) Aquatics Treatment Pool Entry/Exit Pool Entry/Exit Method Stairs Assistance Independent Water Walking [place] July Water Level Chest Level Comments reaching cross body Lunge Walk Water Level Chest Level march Water Level Chest Level Sideways Water Level Chest Level backward Water Level Chest Level forward Water Level Chest Level Lower Extremity Exercises hip circles Body Position Standing Water Level Chest Level Reps/Duration 10x ea Cw, CCW Comments min UE support hip flex/ext Body Position Standing Water Level Chest Level Reps/Duration 10x Comments no UE support Hip abduction Body Position Standing Water Level Chest Level Comments no UE support squats Body Position Standing Water Level Chest Level Reps/Duration 10x2 Lower Extremity Stretches hip flexor Body Position Standing Water Level Chest Level Equipment Small Noodle Reps/Duration 2x30 quad Body Position Standing Water Level Chest Level Equipment Small Noodle Reps/Duration 2x30 ITB Body Position Standing Water Level Chest Level Equipment Large Noodle HS Body Position Standing Water Level Chest Level Equipment Large Noodle [place] Activities [place] Activities Bicycle,[place] Other Activities DLS with medium barbells Manual Techniques Aquatic Massage TFL and IT band PT-OP-T Assessment and Plan Start: 12/16/18 14:33 Freq: Status: Active Protocol: Document 02/23/19 11:45 CLB (Rec: 02/23/19 14:49 CLB [id number]) Physical Therapy Assessment Goals Four Impairment weakness bilateral hips and core Short Term Goal (STG) Patient to be independent and compliant with HEP with ongoing progression 01/26/19: good goal progress, patient highly compliant. We continue to progress her HEP. STG Duration 01/20/19 Usp Goal (LTG) Patient to demonstrate core and hip muscle strength of at least 4+/5 LTG Duration 03/18/19 Three Impairment functional mobility and activity tolerance [place] 56% Short Term Goal (STG) Decrease Oswestry disability index score to no greater than 40% 01/26/19: not retested today, verbally patient reporting increased activity tolerance, decreased pain STG Duration 01/20/19 Cosmetic Chemist Goal (LTG) Decrease Oswestry disability index score to no greater than 20% and return to her usual activities LTG Duration 03/18/19 Two Impairment antalgic gait Short Term Goal (STG) Patient able to walk with minimal limp using least restrictive assistive device indoors 01/26/19: patient able to walk with single point cane with minimal limp/compensation STG Duration 01/20/19 Usp Goal (LTG) Patient able to walk in the house with no device without limp, and with least restrictive device with outdoor gait LTG Duration 03/18/19 One Impairment pain Short Term Goal (STG) decrease pain to no greater than 3/10 01/26/19: good progress, knee pain largest issue today. STG Duration 01/20/19 Cosmetic Chemist Goal (LTG) decrease pain to no greater than 2/10 with all usual activities LTG Duration 03/18/19 Assessment Summary Assessment Pt tolerated all aquatic ther ex well. Physical Therapy Plan Frequency and Duration Frequency of Treatment 2x/Week Duration of Treatment 12 wks Plan of Care Start Date 12/16/18 Plan of Care End Date 03/18/19 Next Visit Focus/Plan Next Note Type Treatment Note Next Visit Plan Progress per POC.
--- NOTE | 2019-02-25 15:44 | PT.OTN ---
Current Diagnoses Spondylosis without myelopathy or radiculopathy, lumbar region (02/25/19) Radiculopathy, lumbar region (02/25/19) Difficulty in walking, not elsewhere classified (02/25/19) Abnormal posture (02/25/19) Weakness (02/25/19) Other specified injury of muscle, fascia and tendon of the posterior muscle group at thigh level, left thigh, initial encounter (02/25/19) Physical Therapy Treatment Note PT-OP-A Visit Information Start: 12/16/18 14:33 Freq: Status: Active Protocol: Document 02/25/19 14:30 LJ (Rec: 02/25/19 15:44 LJ [id number]) Out-Patient Physical Therapy Visit Information Visit Information Visit Type Treatment Note Visit Start Time 14:30 Visit Stop Time 14:17 Total Visit Minutes 47 Visit Number 19 Number of ACQUISITION MANAGER Visits 5 PT-OP-B Current Condition Start: 12/16/18 14:33 Freq: Status: Active Protocol: Document 12/18/18 14:55 SAK (Rec: 12/21/18 13:06 SAK [id number]) Current Condition History of Current Condition Onset Date 2 months Current Complaints left hip and thigh pain History of Current Condition Gradual onset worsening left hip and posterior thigh pain, mild increase in LBP. Now with very limited walking due to pain, unable to do yardwork due to pain. Developed abcess in vaginal area, hasn't been able to go to pool since September 2018, plus 2 bladder infections in past couple months; just finished antibiotics yesterday. No orthotics, wears compression stockings knee high meño. Not using any ice or heat, sleeps on back with pillow under knees or in chair . Reports 2 years of occasional tingling left foot. Left knee gives way at times, step to pattern on stairs due to left knee pain Prior Treatments and Tests MRI showed narrowing in spinal canal and L3-4 History of prior Right MILADY, bilaterl TKA's, left ORIF. Future Testing and Treatments Planned getting cortisone shot in lumbar spine Saturday12/23/18 Personal Factors Other Personal Factors That May Effect Muscle soreness after Therapy/Recovery evaluation PT-OP-C Subjective Start: 12/16/18 14:33 Freq: Status: Active Protocol: Document 02/25/19 14:30 LJ (Rec: 02/25/19 15:44 [id number]) OP-PT Subjective Patient Comments Patient Comments Pt reports she is feeling pretty good and feels her gait is improving. Brought a new referral from [facility] orthopedics PT-OP-G Mobility & Gait Start: 12/16/18 14:33 Freq: Status: Active Protocol: Document 12/16/18 14:33 SAK (Rec: 12/18/18 09:42 SAK [id number]) OP Mobility Evaluation Bed Mobility Rolling painful Supine to and from Sit painful Transfers Sit to Stand painful Functional Movements Squats braces LE's together OP Gait Assessment Gait Gait Assistance Required: Independent Assistive Devices Assistive Device None Gait Deviations General Gait Pattern Antalgic,Decreased Stride Length,Decreased Feet Clearance,Wide Based Gait Factors Limiting Gait Function Factors Limiting Gait Function Pain PT-OP-J Posture/Palpation/Skin Start: 12/16/18 14:33 Freq: Status: Active Protocol: Document 12/16/18 14:33 SAK (Rec: 12/18/18 09:42 SAK [id number]) Posture Evaluation Position Standing Head/C-Spine Posture Forward Head T-Spine Posture Fixed Scoliosis on (R), Increased Kyphosis L-Spine Posture Flattened Scapula Posture (L) Protracted,(R) Protracted Arm Posture (L) Internally Rotated,(R) Internally Rotated Hip Posture (L) Flexed,(R) Flexed,(L) Externally Rotated,(R) Externally Rotated Knee Posture (L) Genu Valgus Palpation Assessment Location left piriformis Palpation Findings Tenderness left greater trochanter\ Palpation Findings Tenderness Skin Assessment Other Assessments Skin Assessment Comments skin intact lumbar spine, hip and buttock PT-OP-K Range of Motion Start: 12/16/18 14:33 Freq: Status: Active Protocol: Document 12/16/18 14:33 SAK (Rec: 12/18/18 09:42 SAK [id number]) Lumbar Spine Range of Motion Lumbar Spine Active Testing Position Standing Flexion 20 Extension 0 Rotation Left 15 Rotation Right 15 Lateral Flexion Left 35 Lateral Flexion Right 30 ROM Limitations Soft Tissue Tightness,Pain Hip Goniometric Range of Motion Hip Left Hip ROM WFL Yes Flexion w/Knee Flexed 90 Straight Leg Raise 65 Extension 0 Abduction 25 Internal Rotation 15 External Rotation 55 right Testing Position Supine Flexion w/Knee Flexed 100 Straight Leg Raise 65 Extension 0 Abduction 25 Internal Rotation 20 External Rotation 55 Hip ROM Limitations Hip ROM Limitations Pain Comments unable to hold left LE in SLR, pain with all hip motions Knee Goniometric Range of Motion Knee meño Knee ROM WFL Yes Ankle and Foot Goniometric Range of Motion Ankle and Foot meño Ankle/Foot ROM WFL Yes PT-OP-L Special Tests Start: 12/16/18 14:33 Freq: Status: Active Protocol: Document 12/16/18 14:33 SAK (Rec: 12/18/18 09:42 SAK [id number]) Special Tests Lumbar Spine Special Tests Compression Test Results negative Slump Test Results negative Hip Special Tests Straight Leg Raise Test Results positive left for pain Piriformis Test Results positive for pain left PT-OP-M Strength Start: 12/16/18 14:33 Freq: Status: Active Protocol: Document 12/16/18 14:33 SAK (Rec: 12/18/18 09:42 SAK [id number]) Trunk Strength Trunk Manual Muscle Testing Testing Position Supine Flexion 3+ Fair+ Extension 4- Good- Core Stabilization poor activation of TrA Hip Strength Hip Manual Muscle Testing Left Flexion (L2) 3+ Fair+ Extension (S1) 2+ Poor+ Abduction 3- Fair- External Rotation 3- Fair- Internal Rotation 3+ Fair+ Right Flexion (L2) 4 Good Extension (S1) 3- Fair- Abduction 4- Good- Adduction 3 Fair External Rotation 4 Good Internal Rotation 4+ Good+ Knee Strength Knee Manual Muscle Testing meño Flexion (S2) 4+ Good+ Extension (L3) 4+ Good+ Ankle/Foot Strength Ankle and Foot Manual Muscle Testing meño Dorsiflexion (L4) 4+ Good+ Plantarflexion (S1) 4+ Good+ PT-OP-Q Treatments Start: 12/16/18 14:33 Freq: Status: Active Protocol: Document 02/25/19 14:30 LJ (Rec: 02/25/19 15:44 LJ [id number]) Cardio Equipment Recumbent Stepper (Sci-Fit) Duration (Minutes) 8 Resistance 2.0-2.5 Other emphasis on neutral LE alignment Gym Equipment Shuttle Recovery Unilateral Squats Resistance 67# Shuttle Recovery Platform Stable Reps/Time 2x10 Therapeutic Exercises Sitting Exercises ankle eversion, external rotation Resistance yellow Tband Reps/Minutes 2x10 Standing Exercises SLS Side right Reps/Minutes 8 Comments during gait training weight shift with gluteal activation Reps/Minutes 10x Comments during gait training postural isometric Reps/Minutes 10x Gait Training Gait Activity //bars w/o cane Distance/Duration 15 Comments gait in front of mirror with verbal cueing to stabilize hips and straighten knees. Visual feedback in mirror. focus also on dorsiflexion and heel strike as well as Rfoot eversion to prevent toeing in SLS in gait training Description SLS in gait training Comments stepping forward to load LLE during gait and activating glute for hip abd to prevent hip drop in Trendelenburg PT-OP-R Modalities Start: 12/16/18 14:33 Freq: Status: Active Protocol: Document 02/20/19 09:00 LJ (Rec: 02/20/19 14:34 LJ [id number]) Hot Pack/Cold Pack Treatment Hot Pack Location left hip to knee Patient Position Sidelying Treatment Duration (minutes) 10 PT-OP-S Aquatic Treatment Start: 12/16/18 14:33 Freq: Status: Active Protocol: Document 02/23/19 11:45 CLB (Rec: 02/23/19 14:49 CLB [id number]) Aquatics Treatment Pool Entry/Exit Pool Entry/Exit Method Stairs Assistance Independent Water Walking [place] March Water Level Chest Level Comments reaching cross body Lunge Walk Water Level Chest Level march Water Level Chest Level Sideways Water Level Chest Level backward Water Level Chest Level forward Water Level Chest Level Lower Extremity Exercises hip circles Body Position Standing Water Level Chest Level Reps/Duration 10x ea Cw, CCW Comments min UE support hip flex/ext Body Position Standing Water Level Chest Level Reps/Duration 10x Comments no UE support Hip abduction Body Position Standing Water Level Chest Level Comments no UE support squats Body Position Standing Water Level Chest Level Reps/Duration 10x2 Lower Extremity Stretches hip flexor Body Position Standing Water Level Chest Level Equipment Small Noodle Reps/Duration 2x30 quad Body Position Standing Water Level Chest Level Equipment Small Noodle Reps/Duration 2x30 ITB Body Position Standing Water Level Chest Level Equipment Large Noodle HS Body Position Standing Water Level Chest Level Equipment Large Noodle [place] Activities [place] Activities Bicycle,[place] Other Activities DLS with medium barbells Manual Techniques Aquatic Massage TFL and IT band PT-OP-T Assessment and Plan Start: 12/16/18 14:33 Freq: Status: Active Protocol: Document 02/25/19 14:30 LJ (Rec: 02/25/19 15:44 LJ [id number]) Physical Therapy Assessment Rehab Potential Rehabilitation Potential Good Evaluation Complexity Number of Personal Factors/Comorbidities 3 or More Number of Body Systems Impaired 3 Clinical Presentation at Evaluation Evolving Impairments Impairments Functional Mobility,Gait,Pain, Strength Goals Four Impairment weakness bilateral hips and core Short Term Goal (STG) Patient to be independent and compliant with HEP with ongoing progression 01/26/19: good goal progress, patient highly compliant. We continue to progress her HEP. STG Duration 01/20/19 [facility]cf Goal (LTG) Patient to demonstrate core and hip muscle strength of at least 4+/5 LTG Duration 03/18/19 Three Impairment functional mobility and activity tolerance [place] 56% Short Term Goal (STG) Decrease Oswestry disability index score to no greater than 40% 01/26/19: not retested today, verbally patient reporting increased activity tolerance, decreased pain STG Duration 01/20/19 [facility] Goal (LTG) Decrease Oswestry disability index score to no greater than 20% and return to her usual activities LTG Duration 03/18/19 Two Impairment antalgic gait Short Term Goal (STG) Patient able to walk with minimal limp using least restrictive assistive device indoors 01/26/19: patient able to walk with single point cane with minimal limp/compensation STG Duration 01/20/19 [facility] Goal (LTG) Patient able to walk in the house with no device without limp, and with least restrictive device with outdoor gait LTG Duration 03/18/19 One Impairment pain Short Term Goal (STG) decrease pain to no greater than 3/10 01/26/19: good progress, knee pain largest issue today. STG Duration 01/20/19 System Administrator Goal (LTG) decrease pain to no greater than 2/10 with all usual activities LTG Duration 03/18/19 Assessment Summary Assessment Pt achieved better gait mechanics with emphasis on foot eversion, increased knee flexion, and extension. Pt still walks with right lateral lean however hip and knee stability shows improvement. Pt also has decreased pain in back with ambulation Physical Therapy Plan Frequency and Duration Frequency of Treatment 2x/Week Duration of Treatment 12 wks Plan of Care Start Date 12/16/18 Plan of Care End Date 03/18/19 Therapeutic Interventions Therapeutic Interventions Aquatic Therapy,Gait Training, Home Exercise Program,Manual Therapy,Neuromuscular Re- education,Patient/Caregiver Education,Self-Care/Home Management,Soft Tissue Mobilization,Taping, Therapeutic Activities, Therapeutic Exercises Modalities Cold Pack/Ice Massage,Electric Stimulation,Hot Packs, Iontophoresis,Traction- Mechanical,Ultrasound Next Visit Focus/Plan Next Note Type Treatment Note Next Visit Plan Progress pt with gait mechanics and proper stretching techniques to compliment her strengthening exercises.
--- NOTE | 2019-03-02 14:32 | PT.OTN ---
Current Diagnoses Spondylosis without myelopathy or radiculopathy, lumbar region (03/02/19) Radiculopathy, lumbar region (03/02/19) Difficulty in walking, not elsewhere classified (03/02/19) Abnormal posture (03/02/19) Weakness (03/02/19) Other specified injury of muscle, fascia and tendon of the posterior muscle group at thigh level, left thigh, initial encounter (03/02/19) Physical Therapy Treatment Note PT-OP-A Visit Information Start: 12/16/18 14:33 Freq: Status: Active Protocol: Document 03/02/19 09:00 LJ (Rec: 03/02/19 14:29 LJ [id number]) Out-Patient Physical Therapy Visit Information Visit Information Visit Type Treatment Note Visit Start Time 09:00 Visit Stop Time 09:46 Total Visit Minutes 46 Visit Number 20 Number of [employer]AL [employer]IC[employer] DOCTOR Visits 6 PT-OP-B Current Condition Start: 12/16/18 14:33 Freq: Status: Active Protocol: Document 12/18/18 14:55 SAK (Rec: 12/21/18 13:06 SAK [id number]) Current Condition History of Current Condition Onset Date 2 months Current Complaints left hip and thigh pain History of Current Condition Gradual onset worsening left hip and posterior thigh pain, mild increase in LBP. Now with very limited walking due to pain, unable to do yardwork due to pain. Developed abcess in vaginal area, hasn't been able to go to pool since September 2018, plus 2 bladder infections in past couple months; just finished antibiotics yesterday. No orthotics, wears compression stockings knee high meño. Not using any ice or heat, sleeps on back with pillow under knees or in chair . Reports 2 years of occasional tingling left foot. Left knee gives way at times, step to pattern on stairs due to left knee pain Prior Treatments and Tests MRI showed narrowing in spinal canal and L3-4 History of prior Right MILADY, bilaterl TKA's, left ORIF. Future Testing and Treatments Planned getting cortisone shot in lumbar spine Saturday12/23/18 Personal Factors Other Personal Factors That May Effect Muscle soreness after Therapy/Recovery evaluation PT-OP-C Subjective Start: 12/16/18 14:33 Freq: Status: Active Protocol: Document 03/02/19 09:00 LJ (Rec: 03/02/19 14:29 [id number]) OP-PT Subjective Patient Comments Patient Comments Pt reports she was able to walk for a mile without fatigue or pain. States she is feeling more confident with her balance and walking. PT-OP-G Mobility & Gait Start: 12/16/18 14:33 Freq: Status: Active Protocol: Document 12/16/18 14:33 SAK (Rec: 12/18/18 09:42 SAK [id number]) OP Mobility Evaluation Bed Mobility Rolling painful Supine to and from Sit painful Transfers Sit to Stand painful Functional Movements Squats braces LE's together OP Gait Assessment Gait Gait Assistance Required: Independent Assistive Devices Assistive Device None Gait Deviations General Gait Pattern Antalgic,Decreased Stride Length,Decreased Feet Clearance,Wide Based Gait Factors Limiting Gait Function Factors Limiting Gait Function Pain PT-OP-J Posture/Palpation/Skin Start: 12/16/18 14:33 Freq: Status: Active Protocol: Document 12/16/18 14:33 SAK (Rec: 12/18/18 09:42 [facility] [id number]) Posture Evaluation Position Standing Head/C-Spine Posture Forward Head T-Spine Posture Fixed Scoliosis on (R), Increased Kyphosis L-Spine Posture Flattened Scapula Posture (L) Protracted,(R) Protracted Arm Posture (L) Internally Rotated,(R) Internally Rotated Hip Posture (L) Flexed,(R) Flexed,(L) Externally Rotated,(R) Externally Rotated Knee Posture (L) Genu Valgus Palpation Assessment Location left piriformis Palpation Findings Tenderness left greater trochanter\ Palpation Findings Tenderness Skin Assessment Other Assessments Skin Assessment Comments skin intact lumbar spine, hip and buttock PT-OP-K Range of Motion Start: 12/16/18 14:33 Freq: Status: Active Protocol: Document 12/16/18 14:33 SAK (Rec: 12/18/18 09:42 [facility] [id number]) Lumbar Spine Range of Motion Lumbar Spine Active Testing Position Standing Flexion 20 Extension 0 Rotation Left 15 Rotation Right 15 Lateral Flexion Left 35 Lateral Flexion Right 30 ROM Limitations Soft Tissue Tightness,Pain Hip Goniometric Range of Motion Hip Left Hip ROM WFL Yes Flexion w/Knee Flexed 90 Straight Leg Raise 65 Extension 0 Abduction 25 Internal Rotation 15 External Rotation 55 right Testing Position Supine Flexion w/Knee Flexed 100 Straight Leg Raise 65 Extension 0 Abduction 25 Internal Rotation 20 External Rotation 55 Hip ROM Limitations Hip ROM Limitations Pain Comments unable to hold left LE in SLR, pain with all hip motions Knee Goniometric Range of Motion Knee meño Knee ROM WFL Yes Ankle and Foot Goniometric Range of Motion Ankle and Foot meño Ankle/Foot ROM WFL Yes PT-OP-L Special Tests Start: 12/16/18 14:33 Freq: Status: Active Protocol: Document 12/16/18 14:33 SAK (Rec: 12/18/18 09:42 SAK [id number]) Special Tests Lumbar Spine Special Tests Compression Test Results negative Slump Test Results negative Hip Special Tests Straight Leg Raise Test Results positive left for pain Piriformis Test Results positive for pain left PT-OP-M Strength Start: 12/16/18 14:33 Freq: Status: Active Protocol: Document 12/16/18 14:33 SAK (Rec: 12/18/18 09:42 SAK [id number]) Trunk Strength Trunk Manual Muscle Testing Testing Position Supine Flexion 3+ Fair+ Extension 4- Good- Core Stabilization poor activation of TrA Hip Strength Hip Manual Muscle Testing Left Flexion (L2) 3+ Fair+ Extension (S1) 2+ Poor+ Abduction 3- Fair- External Rotation 3- Fair- Internal Rotation 3+ Fair+ Right Flexion (L2) 4 Good Extension (S1) 3- Fair- Abduction 4- Good- Adduction 3 Fair External Rotation 4 Good Internal Rotation 4+ Good+ Knee Strength Knee Manual Muscle Testing meño Flexion (S2) 4+ Good+ Extension (L3) 4+ Good+ Ankle/Foot Strength Ankle and Foot Manual Muscle Testing meño Dorsiflexion (L4) 4+ Good+ Plantarflexion (S1) 4+ Good+ PT-OP-Q Treatments Start: 12/16/18 14:33 Freq: Status: Active Protocol: Document 03/02/19 09:00 DRAKE (Rec: 03/02/19 14:29 LJ [id number]) Cardio Equipment Recumbent Stepper (Sci-Fit) Duration (Minutes) 8 Resistance 2.0-2.5 Other emphasis on neutral LE alignment Gym Equipment Shuttle Recovery Unilateral Squats Resistance 67# Shuttle Recovery Platform Stable Reps/Time 2x10 Bilateral Squats Resistance 100# Shuttle Recovery Platform Stable Reps/Time 2x10 Therapeutic Exercises Supine Exercises ITB stretch Side bilateral hip flex stretch Side bilateral Reps/Minutes 2x Comments side of plinth Sidelying Exercises QL stretch Side bilateral Reps/Minutes 2 Comments manually assisted QL stretch-rib recoil Side bilateral Reps/Minutes 6 Comments with light massage also Sitting Exercises ankle eversion, external rotation Resistance yellow Tband Reps/Minutes 2x10 Standing Exercises hip ab/ad Standing Exercise Name hip dips Side bilateral Reps/Minutes 12 Comments standing in // bars during gait training SLS Side bilateral Reps/Minutes 3x 30 sec Comments CKC hip ab Gait Training Gait Activity //bars w/o cane Distance/Duration 18 Comments biofeedback in front of mirror with verbal cueing for lifting R heel off floor and stepping onto R toes to correct hip imbalance. SLS in gait training Description SLS in gait training Distance/Duration 2 min Comments stepping forward to load LLE during gait and activating glute for hip abd to prevent hip drop in Trendelenburg Manual Therapy Treatment Soft Tissue Mobilization QL Body Location left side Mobilization Type Cross-Friction,Sustained Pressure,Trigger Point Release Intensity/Depth Moderate Body Position Sidelying Comments during sidelying stretch PT-OP-R Modalities Start: 12/16/18 14:33 Freq: Status: Active Protocol: Document 02/20/19 09:00 LJ (Rec: 02/20/19 14:34 LJ [id number]) Hot Pack/Cold Pack Treatment Hot Pack Location left hip to knee Patient Position Sidelying Treatment Duration (minutes) 10 PT-OP-S Aquatic Treatment Start: 12/16/18 14:33 Freq: Status: Active Protocol: Document 02/23/19 11:45 CLB (Rec: 02/23/19 14:49 CLB [id number]) Aquatics Treatment Pool Entry/Exit Pool Entry/Exit Method Stairs Assistance Independent Water Walking Robinson March Water Level Chest Level Comments reaching cross body Lunge Walk Water Level Chest Level march Water Level Chest Level Sideways Water Level Chest Level backward Water Level Chest Level forward Water Level Chest Level Lower Extremity Exercises hip circles Body Position Standing Water Level Chest Level Reps/Duration 10x ea Cw, CCW Comments min UE support hip flex/ext Body Position Standing Water Level Chest Level Reps/Duration 10x Comments no UE support Hip abduction Body Position Standing Water Level Chest Level Comments no UE support squats Body Position Standing Water Level Chest Level Reps/Duration 10x2 Lower Extremity Stretches hip flexor Body Position Standing Water Level Chest Level Equipment Small Noodle Reps/Duration 2x30 quad Body Position Standing Water Level Chest Level Equipment Small Noodle Reps/Duration 2x30 ITB Body Position Standing Water Level Chest Level Equipment Large Noodle HS Body Position Standing Water Level Chest Level Equipment Large Noodle [place] Activities [place] Activities Bicycle,[place] Other Activities DLS with medium barbells Manual Techniques Aquatic Massage TFL and IT band PT-OP-T Assessment and Plan Start: 12/16/18 14:33 Freq: Status: Active Protocol: Document 03/02/19 09:00 DRAKE (Rec: 03/02/19 14:29 DRAKE [id number]) Physical Therapy Assessment Rehab Potential Rehabilitation Potential Good Evaluation Complexity Number of Personal Factors/Comorbidities 3 or More Number of Body Systems Impaired 3 Clinical Presentation at Evaluation Evolving Impairments Impairments Functional Mobility,Gait,Pain, Strength Goals Four Impairment weakness bilateral hips and core Short Term Goal (STG) Patient to be independent and compliant with HEP with ongoing progression 01/26/19: good goal progress, patient highly compliant. We continue to progress her HEP. STG Duration 01/20/19 Prison Goal (LTG) Patient to demonstrate core and hip muscle strength of at least 4+/5 LTG Duration 03/18/19 Three Impairment functional mobility and activity tolerance [place] 56% Short Term Goal (STG) Decrease Oswestry disability index score to no greater than 40% 01/26/19: not retested today, verbally patient reporting increased activity tolerance, decreased pain STG Duration 01/20/19 Prison Goal (LTG) Decrease Oswestry disability index score to no greater than 20% and return to her usual activities LTG Duration 03/18/19 Two Impairment antalgic gait Short Term Goal (STG) Patient able to walk with minimal limp using least restrictive assistive device indoors 01/26/19: patient able to walk with single point cane with minimal limp/compensation STG Duration 01/20/19 Machine Preservative Filler Goal (LTG) Patient able to walk in the house with no device without limp, and with least restrictive device with outdoor gait LTG Duration 03/18/19 One Impairment pain Short Term Goal (STG) decrease pain to no greater than 3/10 01/26/19: good progress, knee pain largest issue today. STG Duration 01/20/19 Prison Goal (LTG) decrease pain to no greater than 2/10 with all usual activities LTG Duration 03/18/19 Assessment Summary Assessment Pt feedback in front of mirror beneficial to correct hip stability. Stepping onto R toes to lengthen leg improved gait. Pt will consult doctor for possible lift in shoe. Manual therapy and QL stretch improved pt lateral lean during gait with pt stating she felt straighter. Physical Therapy Plan Frequency and Duration Frequency of Treatment 2x/Week Duration of Treatment 12 wks Plan of Care Start Date 12/16/18 Plan of Care End Date 03/18/19 Therapeutic Interventions Therapeutic Interventions Aquatic Therapy,Gait Training, Home Exercise Program,Manual Therapy,Neuromuscular Re- education,Patient/Caregiver Education,Self-Care/Home Management,Soft Tissue Mobilization,Taping, Therapeutic Activities, Therapeutic Exercises Modalities Cold Pack/Ice Massage,Electric Stimulation,Hot Packs, Iontophoresis,Traction- Mechanical,Ultrasound Next Visit Focus/Plan Next Note Type Treatment Note Next Visit Plan Progress pt with gait mechanics and proper stretching techniques to compliment her strengthening exercises. Increase strengthening exercises to include weights with proper form for future HEP.
--- NOTE | 2019-03-04 15:31 | PT.OTN ---
Current Diagnoses Spondylosis without myelopathy or radiculopathy, lumbar region (03/02/19) Radiculopathy, lumbar region (03/02/19) Difficulty in walking, not elsewhere classified (03/02/19) Abnormal posture (03/02/19) Weakness (03/02/19) Other specified injury of muscle, fascia and tendon of the posterior muscle group at thigh level, left thigh, initial encounter (03/02/19) Physical Therapy Treatment Note PT-OP-A Visit Information Start: 12/16/18 14:33 Freq: Status: Active Protocol: Document 03/04/19 11:45 NFW (Rec: 03/04/19 15:31 NFW [id number]) Out-Patient Physical Therapy Visit Information Visit Information Visit Type Treatment Note Visit Start Time 11:45 Visit Stop Time 12:30 Total Visit Minutes 45 Visit Number 21 PT-OP-B Current Condition Start: 12/16/18 14:33 Freq: Status: Active Protocol: Document 12/18/18 14:55 SAK (Rec: 12/21/18 13:06 SAK [id number]) Current Condition History of Current Condition Onset Date 2 months Current Complaints left hip and thigh pain History of Current Condition Gradual onset worsening left hip and posterior thigh pain, mild increase in LBP. Now with very limited walking due to pain, unable to do yardwork due to pain. Developed abcess in vaginal area, hasn't been able to go to pool since September 2018, plus 2 bladder infections in past couple months; just finished antibiotics yesterday. No orthotics, wears compression stockings knee high meño. Not using any ice or heat, sleeps on back with pillow under knees or in chair . Reports 2 years of occasional tingling left foot. Left knee gives way at times, step to pattern on stairs due to left knee pain Prior Treatments and Tests MRI showed narrowing in spinal canal and L3-4 History of prior Right MILADY, bilaterl TKA's, left ORIF. Future Testing and Treatments Planned getting cortisone shot in lumbar spine Saturday12/23/18 Personal Factors Other Personal Factors That May Effect Muscle soreness after Therapy/Recovery evaluation PT-OP-C Subjective Start: 12/16/18 14:33 Freq: Status: Active Protocol: Document 03/04/19 11:45 NFW (Rec: 03/04/19 15:31 NFW [id number]) OP-PT Subjective Patient Comments Patient Comments Pt walked [place] piper with using her walking sticks for 2 miles. She did well with her back. Her left knee, however, buckled on her twice. She is walking in her home without the use of her walking sticks. She is not comfortable walking outside without her walking sticks. PT-OP-G Mobility & Gait Start: 12/16/18 14:33 Freq: Status: Active Protocol: Document 12/16/18 14:33 [facility] (Rec: 12/18/18 09:42 [facility] [id number]) OP Mobility Evaluation Bed Mobility Rolling painful Supine to and from Sit painful Transfers Sit to Stand painful Functional Movements Squats braces LE's together OP Gait Assessment Gait Gait Assistance Required: Independent Assistive Devices Assistive Device None Gait Deviations General Gait Pattern Antalgic,Decreased Stride Length,Decreased Feet Clearance,Wide Based Gait Factors Limiting Gait Function Factors Limiting Gait Function Pain PT-OP-J Posture/Palpation/Skin Start: 12/16/18 14:33 Freq: Status: Active Protocol: Document 12/16/18 14:33 [facility] (Rec: 12/18/18 09:42 [facility] [id number]) Posture Evaluation Position Standing Head/C-Spine Posture Forward Head T-Spine Posture Fixed Scoliosis on (R), Increased Kyphosis L-Spine Posture Flattened Scapula Posture (L) Protracted,(R) Protracted Arm Posture (L) Internally Rotated,(R) Internally Rotated Hip Posture (L) Flexed,(R) Flexed,(L) Externally Rotated,(R) Externally Rotated Knee Posture (L) Genu Valgus Palpation Assessment Location left piriformis Palpation Findings Tenderness left greater trochanter\ Palpation Findings Tenderness Skin Assessment Other Assessments Skin Assessment Comments skin intact lumbar spine, hip and buttock PT-OP-K Range of Motion Start: 12/16/18 14:33 Freq: Status: Active Protocol: Document 12/16/18 14:33 [facility] (Rec: 12/18/18 09:42 [facility] [id number]) Lumbar Spine Range of Motion Lumbar Spine Active Testing Position Standing Flexion 20 Extension 0 Rotation Left 15 Rotation Right 15 Lateral Flexion Left 35 Lateral Flexion Right 30 ROM Limitations Soft Tissue Tightness,Pain Hip Goniometric Range of Motion Hip Left Hip ROM WFL Yes Flexion w/Knee Flexed 90 Straight Leg Raise 65 Extension 0 Abduction 25 Internal Rotation 15 External Rotation 55 right Testing Position Supine Flexion w/Knee Flexed 100 Straight Leg Raise 65 Extension 0 Abduction 25 Internal Rotation 20 External Rotation 55 Hip ROM Limitations Hip ROM Limitations Pain Comments unable to hold left LE in SLR, pain with all hip motions Knee Goniometric Range of Motion Knee meño Knee ROM WFL Yes Ankle and Foot Goniometric Range of Motion Ankle and Foot meño Ankle/Foot ROM WFL Yes PT-OP-L Special Tests Start: 12/16/18 14:33 Freq: Status: Active Protocol: Document 12/16/18 14:33 SAK (Rec: 12/18/18 09:42 SAK [id number]) Special Tests Lumbar Spine Special Tests Compression Test Results negative Slump Test Results negative Hip Special Tests Straight Leg Raise Test Results positive left for pain Piriformis Test Results positive for pain left PT-OP-M Strength Start: 12/16/18 14:33 Freq: Status: Active Protocol: Document 12/16/18 14:33 SAK (Rec: 12/18/18 09:42 SAK [id number]) Trunk Strength Trunk Manual Muscle Testing Testing Position Supine Flexion 3+ Fair+ Extension 4- Good- Core Stabilization poor activation of TrA Hip Strength Hip Manual Muscle Testing Left Flexion (L2) 3+ Fair+ Extension (S1) 2+ Poor+ Abduction 3- Fair- External Rotation 3- Fair- Internal Rotation 3+ Fair+ Right Flexion (L2) 4 Good Extension (S1) 3- Fair- Abduction 4- Good- Adduction 3 Fair External Rotation 4 Good Internal Rotation 4+ Good+ Knee Strength Knee Manual Muscle Testing meño Flexion (S2) 4+ Good+ Extension (L3) 4+ Good+ Ankle/Foot Strength Ankle and Foot Manual Muscle Testing meño Dorsiflexion (L4) 4+ Good+ Plantarflexion (S1) 4+ Good+ PT-OP-Q Treatments Start: 12/16/18 14:33 Freq: Status: Active Protocol: Document 03/02/19 09:00 DRAKE (Rec: 03/02/19 14:29 LJ [id number]) Cardio Equipment Recumbent Stepper (Sci-Fit) Duration (Minutes) 8 Resistance 2.0-2.5 Other emphasis on neutral LE alignment Gym Equipment Shuttle Recovery Unilateral Squats Resistance 67# Shuttle Recovery Platform Stable Reps/Time 2x10 Bilateral Squats Resistance 100# Shuttle Recovery Platform Stable Reps/Time 2x10 Therapeutic Exercises Supine Exercises ITB stretch Side bilateral hip flex stretch Side bilateral Reps/Minutes 2x Comments side of plinth Sidelying Exercises QL stretch Side bilateral Reps/Minutes 2 Comments manually assisted QL stretch-rib recoil Side bilateral Reps/Minutes 6 Comments with light massage also Sitting Exercises ankle eversion, external rotation Resistance yellow Tband Reps/Minutes 2x10 Standing Exercises hip ab/ad Standing Exercise Name hip dips Side bilateral Reps/Minutes 12 Comments standing in // bars during gait training SLS Side bilateral Reps/Minutes 3x 30 sec Comments CKC hip ab Gait Training Gait Activity //bars w/o cane Distance/Duration 18 Comments biofeedback in front of mirror with verbal cueing for lifting R heel off floor and stepping onto R toes to correct hip imbalance. SLS in gait training Description SLS in gait training Distance/Duration 2 min Comments stepping forward to load LLE during gait and activating glute for hip abd to prevent hip drop in Trendelenburg Manual Therapy Treatment Soft Tissue Mobilization QL Body Location left side Mobilization Type Cross-Friction,Sustained Pressure,Trigger Point Release Intensity/Depth Moderate Body Position Sidelying Comments during sidelying stretch PT-OP-R Modalities Start: 12/16/18 14:33 Freq: Status: Active Protocol: Document 02/20/19 09:00 LJ (Rec: 02/20/19 14:34 LJ [id number]) Hot Pack/Cold Pack Treatment Hot Pack Location left hip to knee Patient Position Sidelying Treatment Duration (minutes) 10 PT-OP-S Aquatic Treatment Start: 12/16/18 14:33 Freq: Status: Active Protocol: Document 03/04/19 11:45 NFW (Rec: 03/04/19 15:31 NFW [id number]) Aquatics Treatment Pool Entry/Exit Pool Entry/Exit Method Stairs Assistance Independent Water Walking F[place] March Water Level Chest Level Lunge Walk Water Level Chest Level march Water Level Chest Level Sideways Water Level Chest Level backward Water Level Chest Level forward Water Level Waist Level Level of Assistance Standby Assistance Comments Emphasis on Heel to toe progression. Lower Extremity Exercises hip circles Body Position Standing Water Level Chest Level Reps/Duration 10x CW, CCW hip flex/ext Body Position Standing Water Level Chest Level Reps/Duration 10x Hip abduction Body Position Standing Water Level Chest Level Reps/Duration 10x squats Body Position Standing Water Level Chest Level Reps/Duration 10 x2 Lower Extremity Stretches hip flexor Body Position Standing Water Level Chest Level Equipment Small Noodle Reps/Duration 2x30 quad Body Position Standing Water Level Chest Level Reps/Duration 2x30 ITB Body Position Standing Water Level Chest Level Equipment Large Noodle HS Body Position Standing Water Level Chest Level Equipment Large Noodle [place] Activities [place] Activities Bicycle,[place] Other Activities DLS with medium barbells PT-OP-T Assessment and Plan Start: 12/16/18 14:33 Freq: Status: Active Protocol: Document 03/04/19 11:45 NFW (Rec: 03/04/19 15:31 NFW [id number]) Physical Therapy Assessment Assessment Summary Assessment Gait continues to improve. Learning proper heel to toe progression. Excellent follow through with HEP.
--- NOTE | 2019-03-13 15:46 | PT.OTN ---
Current Diagnoses Spondylosis without myelopathy or radiculopathy, lumbar region (03/13/19) Radiculopathy, lumbar region (03/13/19) Difficulty in walking, not elsewhere classified (03/13/19) Abnormal posture (03/13/19) Weakness (03/13/19) Other specified injury of muscle, fascia and tendon of the posterior muscle group at thigh level, left thigh, initial encounter (03/13/19) Physical Therapy Treatment Note PT-OP-A Visit Information Start: 12/16/18 14:33 Freq: Status: Active Protocol: Document 03/13/19 14:30 LJ (Rec: 03/13/19 15:46 LJ [id number]) Out-Patient Physical Therapy Visit Information Visit Information Visit Type Treatment Note Visit Start Time 14:30 Visit Stop Time 15:14 Total Visit Minutes 44 Visit Number 22 Number of PRODUCT MARKETING ENGINEER Visits 1 PT-OP-B Current Condition Start: 12/16/18 14:33 Freq: Status: Active Protocol: Document 12/18/18 14:55 SAK (Rec: 12/21/18 13:06 SAK [id number]) Current Condition History of Current Condition Onset Date 2 months Current Complaints left hip and thigh pain History of Current Condition Gradual onset worsening left hip and posterior thigh pain, mild increase in LBP. Now with very limited walking due to pain, unable to do yardwork due to pain. Developed abcess in vaginal area, hasn't been able to go to pool since September 2018, plus 2 bladder infections in past couple months; just finished antibiotics yesterday. No orthotics, wears compression stockings knee high meño. Not using any ice or heat, sleeps on back with pillow under knees or in chair . Reports 2 years of occasional tingling left foot. Left knee gives way at times, step to pattern on stairs due to left knee pain Prior Treatments and Tests MRI showed narrowing in spinal canal and L3-4 History of prior Right MILADY, bilaterl TKA's, left ORIF. Future Testing and Treatments Planned getting cortisone shot in lumbar spine Saturday12/23/18 Personal Factors Other Personal Factors That May Effect Muscle soreness after Therapy/Recovery evaluation PT-OP-C Subjective Start: 12/16/18 14:33 Freq: Status: Active Protocol: Document 03/13/19 14:30 LJ (Rec: 03/13/19 15:46 [id number]) OP-PT Subjective Patient Comments Patient Comments Pt came to therapy w/o AD today. Says she has not been using it as much and has gone out to work in her yard without any AD. PT-OP-G Mobility & Gait Start: 12/16/18 14:33 Freq: Status: Active Protocol: Document 12/16/18 14:33 SAK (Rec: 12/18/18 09:42 [facility] [id number]) OP Mobility Evaluation Bed Mobility Rolling painful Supine to and from Sit painful Transfers Sit to Stand painful Functional Movements Squats braces LE's together OP Gait Assessment Gait Gait Assistance Required: Independent Assistive Devices Assistive Device None Gait Deviations General Gait Pattern Antalgic,Decreased Stride Length,Decreased Feet Clearance,Wide Based Gait Factors Limiting Gait Function Factors Limiting Gait Function Pain PT-OP-J Posture/Palpation/Skin Start: 12/16/18 14:33 Freq: Status: Active Protocol: Document 12/16/18 14:33 [facility] (Rec: 12/18/18 09:42 [facility] [id number]) Posture Evaluation Position Standing Head/C-Spine Posture Forward Head T-Spine Posture Fixed Scoliosis on (R), Increased Kyphosis L-Spine Posture Flattened Scapula Posture (L) Protracted,(R) Protracted Arm Posture (L) Internally Rotated,(R) Internally Rotated Hip Posture (L) Flexed,(R) Flexed,(L) Externally Rotated,(R) Externally Rotated Knee Posture (L) Genu Valgus Palpation Assessment Location left piriformis Palpation Findings Tenderness left greater trochanter\ Palpation Findings Tenderness Skin Assessment Other Assessments Skin Assessment Comments skin intact lumbar spine, hip and buttock PT-OP-K Range of Motion Start: 12/16/18 14:33 Freq: Status: Active Protocol: Document 12/16/18 14:33 [facility] (Rec: 12/18/18 09:42 [facility] [id number]) Lumbar Spine Range of Motion Lumbar Spine Active Testing Position Standing Flexion 20 Extension 0 Rotation Left 15 Rotation Right 15 Lateral Flexion Left 35 Lateral Flexion Right 30 ROM Limitations Soft Tissue Tightness,Pain Hip Goniometric Range of Motion Hip Left Hip ROM WFL Yes Flexion w/Knee Flexed 90 Straight Leg Raise 65 Extension 0 Abduction 25 Internal Rotation 15 External Rotation 55 right Testing Position Supine Flexion w/Knee Flexed 100 Straight Leg Raise 65 Extension 0 Abduction 25 Internal Rotation 20 External Rotation 55 Hip ROM Limitations Hip ROM Limitations Pain Comments unable to hold left LE in SLR, pain with all hip motions Knee Goniometric Range of Motion Knee meño Knee ROM WFL Yes Ankle and Foot Goniometric Range of Motion Ankle and Foot meño Ankle/Foot ROM WFL Yes PT-OP-L Special Tests Start: 12/16/18 14:33 Freq: Status: Active Protocol: Document 12/16/18 14:33 SAK (Rec: 12/18/18 09:42 SAK [id number]) Special Tests Lumbar Spine Special Tests Compression Test Results negative Slump Test Results negative Hip Special Tests Straight Leg Raise Test Results positive left for pain Piriformis Test Results positive for pain left PT-OP-M Strength Start: 12/16/18 14:33 Freq: Status: Active Protocol: Document 12/16/18 14:33 SAK (Rec: 12/18/18 09:42 SAK [id number]) Trunk Strength Trunk Manual Muscle Testing Testing Position Supine Flexion 3+ Fair+ Extension 4- Good- Core Stabilization poor activation of TrA Hip Strength Hip Manual Muscle Testing Left Flexion (L2) 3+ Fair+ Extension (S1) 2+ Poor+ Abduction 3- Fair- External Rotation 3- Fair- Internal Rotation 3+ Fair+ Right Flexion (L2) 4 Good Extension (S1) 3- Fair- Abduction 4- Good- Adduction 3 Fair External Rotation 4 Good Internal Rotation 4+ Good+ Knee Strength Knee Manual Muscle Testing meño Flexion (S2) 4+ Good+ Extension (L3) 4+ Good+ Ankle/Foot Strength Ankle and Foot Manual Muscle Testing meño Dorsiflexion (L4) 4+ Good+ Plantarflexion (S1) 4+ Good+ PT-OP-Q Treatments Start: 12/16/18 14:33 Freq: Status: Active Protocol: Document 03/13/19 14:30 LJ (Rec: 03/13/19 15:46 LJ [id number]) Cardio Equipment Elliptical Duration (Minutes) 3 Other became difficult Recumbent Stepper (Sci-Fit) Duration (Minutes) 6 Resistance 4 Other emphasis on neutral LE alignment Therapeutic Exercises Sitting Exercises ankle eversion, external rotation Resistance yellow Tband Reps/Minutes 2x10 sit to stand Reps/Minutes 5x Comments raised hi-lo table Standing Exercises wall angles Reps/Minutes 8x squats Reps/Minutes 10x weight shift with gluteal activation Reps/Minutes 10x Comments during gait training postural isometric Reps/Minutes 10x Gait Training Gait Activity hudles and pads in // Device Used walking stick Distance/Duration stable and unstable Treatment Focus balance, mechanics, directional changes Comments attempt to simulate outdoor walking in yard and on beach stepping over logs on beach and plants in yard SLS in gait training Description SLS in gait training Distance/Duration 2 min Comments stepping forward to load LLE during gait and activating glute for hip abd to prevent hip drop in Trendelenburg PT-OP-R Modalities Start: 12/16/18 14:33 Freq: Status: Active Protocol: Document 02/20/19 09:00 LJ (Rec: 02/20/19 14:34 LJ [id number]) Hot Pack/Cold Pack Treatment Hot Pack Location left hip to knee Patient Position Sidelying Treatment Duration (minutes) 10 PT-OP-S Aquatic Treatment Start: 12/16/18 14:33 Freq: Status: Active Protocol: Document 03/04/19 11:45 NFW (Rec: 03/04/19 15:31 NFW [id number]) Aquatics Treatment Pool Entry/Exit Pool Entry/Exit Method Stairs Assistance Independent Water Walking [place] March Water Level Chest Level Lunge Walk Water Level Chest Level march Water Level Chest Level Sideways Water Level Chest Level backward Water Level Chest Level forward Water Level Waist Level Level of Assistance Standby Assistance Comments Emphasis on Heel to toe progression. Lower Extremity Exercises hip circles Body Position Standing Water Level Chest Level Reps/Duration 10x CW, CCW hip flex/ext Body Position Standing Water Level Chest Level Reps/Duration 10x Hip abduction Body Position Standing Water Level Chest Level Reps/Duration 10x squats Body Position Standing Water Level Chest Level Reps/Duration 10 x2 Lower Extremity Stretches hip flexor Body Position Standing Water Level Chest Level Equipment Small Noodle Reps/Duration 2x30 quad Body Position Standing Water Level Chest Level Reps/Duration 2x30 ITB Body Position Standing Water Level Chest Level Equipment Large Noodle HS Body Position Standing Water Level Chest Level Equipment Large Noodle Wilson Activities Wilson Activities Bicycle,Cross [place] Other Activities DLS with medium barbells PT-OP-T Assessment and Plan Start: 12/16/18 14:33 Freq: Status: Active Protocol: Document 03/13/19 14:30 LJ (Rec: 03/13/19 15:46 LJ [id number]) Physical Therapy Assessment Rehab Potential Rehabilitation Potential Good Evaluation Complexity Number of Personal Factors/Comorbidities 3 or More Number of Body Systems Impaired 3 Clinical Presentation at Evaluation Evolving Impairments Impairments Functional Mobility,Gait,Pain, Strength Goals Four Impairment weakness bilateral hips and core Short Term Goal (STG) Patient to be independent and compliant with HEP with ongoing progression 01/26/19: good goal progress, patient highly compliant. We continue to progress her HEP. STG Duration 01/20/19 [facility] Goal (LTG) Patient to demonstrate core and hip muscle strength of at least 4+/5 LTG Duration 03/18/19 Three Impairment functional mobility and activity tolerance [place] 56% Short Term Goal (STG) Decrease Oswestry disability index score to no greater than 40% 01/26/19: not retested today, verbally patient reporting increased activity tolerance, decreased pain STG Duration 01/20/19 [facility] Goal (LTG) Decrease Oswestry disability index score to no greater than 20% and return to her usual activities LTG Duration 03/18/19 Two Impairment antalgic gait Short Term Goal (STG) Patient able to walk with minimal limp using least restrictive assistive device indoors 01/26/19: patient able to walk with single point cane with minimal limp/compensation STG Duration 01/20/19 [facility] Goal (LTG) Patient able to walk in the house with no device without limp, and with least restrictive device with outdoor gait LTG Duration 03/18/19 One Impairment pain Short Term Goal (STG) decrease pain to no greater than 3/10 01/26/19: good progress, knee pain largest issue today. STG Duration 01/20/19 Squeak Rattle And Leak Repairer Goal (LTG) decrease pain to no greater than 2/10 with all usual activities LTG Duration 03/18/19 Assessment Summary Assessment Pt improing with gait mechanics and balance. Using AD less. Went over squat mechanics and pt showed good form and understanding. Physical Therapy Plan Frequency and Duration Frequency of Treatment 2x/Week Duration of Treatment 12 wks Plan of Care Start Date 12/16/18 Plan of Care End Date 03/18/19 Therapeutic Interventions Therapeutic Interventions Aquatic Therapy,Gait Training, Home Exercise Program,Manual Therapy,Neuromuscular Re- education,Patient/Caregiver Education,Self-Care/Home Management,Soft Tissue Mobilization,Taping, Therapeutic Activities, Therapeutic Exercises Modalities Cold Pack/Ice Massage,Electric Stimulation,Hot Packs, Iontophoresis,Traction- Mechanical,Ultrasound Next Visit Focus/Plan Next Note Type Treatment Note Next Visit Plan Progress pt with gait mechanics and strengthening exercises. Increase strengthening exercises to include weights with proper form for future HEP.
--- NOTE | 2019-03-18 16:27 | PT.OTN ---
Current Diagnoses Spondylosis without myelopathy or radiculopathy, lumbar region (03/18/19) Radiculopathy, lumbar region (03/18/19) Difficulty in walking, not elsewhere classified (03/18/19) Abnormal posture (03/18/19) Weakness (03/18/19) Other specified injury of muscle, fascia and tendon of the posterior muscle group at thigh level, left thigh, initial encounter (03/18/19) Physical Therapy Treatment Note PT-OP-A Visit Information Start: 12/16/18 14:33 Freq: Status: Active Protocol: Document 03/18/19 14:15 LJ (Rec: 03/18/19 16:26 LJ [id number]) Out-Patient Physical Therapy Visit Information Visit Information Visit Type Treatment Note Visit Start Time 14:30 Visit Stop Time 15:14 Total Visit Minutes 45 Visit Number 22 Number of CEMENT SACK BREAKER Visits 2 PT-OP-B Current Condition Start: 12/16/18 14:33 Freq: Status: Active Protocol: Document 12/18/18 14:55 SAK (Rec: 12/21/18 13:06 SAK [id number]) Current Condition History of Current Condition Onset Date 2 months Current Complaints left hip and thigh pain History of Current Condition Gradual onset worsening left hip and posterior thigh pain, mild increase in LBP. Now with very limited walking due to pain, unable to do yardwork due to pain. Developed abcess in vaginal area, hasn't been able to go to pool since September 2018, plus 2 bladder infections in past couple months; just finished antibiotics yesterday. No orthotics, wears compression stockings knee high meño. Not using any ice or heat, sleeps on back with pillow under knees or in chair . Reports 2 years of occasional tingling left foot. Left knee gives way at times, step to pattern on stairs due to left knee pain Prior Treatments and Tests MRI showed narrowing in spinal canal and L3-4 History of prior Right MILADY, bilaterl TKA's, left ORIF. Future Testing and Treatments Planned getting cortisone shot in lumbar spine Saturday12/23/18 Personal Factors Other Personal Factors That May Effect Muscle soreness after Therapy/Recovery evaluation PT-OP-C Subjective Start: 12/16/18 14:33 Freq: Status: Active Protocol: Document 03/18/19 14:15 DRAKE (Rec: 03/18/19 16:26 [id number]) OP-PT Subjective Patient Comments Patient Comments Pt states she went for a walk today and had no pain or fatigue. She feels that she is much stronger and that her gait has improved to the point where it doesn't feel crooked to walk the right way . PT-OP-G Mobility & Gait Start: 12/16/18 14:33 Freq: Status: Active Protocol: Document 12/16/18 14:33 [facility] (Rec: 12/18/18 09:42 [facility] [id number]) OP Mobility Evaluation Bed Mobility Rolling painful Supine to and from Sit painful Transfers Sit to Stand painful Functional Movements Squats braces LE's together OP Gait Assessment Gait Gait Assistance Required: Independent Assistive Devices Assistive Device None Gait Deviations General Gait Pattern Antalgic,Decreased Stride Length,Decreased Feet Clearance,Wide Based Gait Factors Limiting Gait Function Factors Limiting Gait Function Pain PT-OP-J Posture/Palpation/Skin Start: 12/16/18 14:33 Freq: Status: Active Protocol: Document 12/16/18 14:33 [facility] (Rec: 12/18/18 09:42 [facility] [id number]) Posture Evaluation Position Standing Head/C-Spine Posture Forward Head T-Spine Posture Fixed Scoliosis on (R), Increased Kyphosis L-Spine Posture Flattened Scapula Posture (L) Protracted,(R) Protracted Arm Posture (L) Internally Rotated,(R) Internally Rotated Hip Posture (L) Flexed,(R) Flexed,(L) Externally Rotated,(R) Externally Rotated Knee Posture (L) Genu Valgus Palpation Assessment Location left piriformis Palpation Findings Tenderness left greater trochanter\ Palpation Findings Tenderness Skin Assessment Other Assessments Skin Assessment Comments skin intact lumbar spine, hip and buttock PT-OP-K Range of Motion Start: 12/16/18 14:33 Freq: Status: Active Protocol: Document 12/16/18 14:33 SAK (Rec: 12/18/18 09:42 [facility] [id number]) Lumbar Spine Range of Motion Lumbar Spine Active Testing Position Standing Flexion 20 Extension 0 Rotation Left 15 Rotation Right 15 Lateral Flexion Left 35 Lateral Flexion Right 30 ROM Limitations Soft Tissue Tightness,Pain Hip Goniometric Range of Motion Hip Left Hip ROM WFL Yes Flexion w/Knee Flexed 90 Straight Leg Raise 65 Extension 0 Abduction 25 Internal Rotation 15 External Rotation 55 right Testing Position Supine Flexion w/Knee Flexed 100 Straight Leg Raise 65 Extension 0 Abduction 25 Internal Rotation 20 External Rotation 55 Hip ROM Limitations Hip ROM Limitations Pain Comments unable to hold left LE in SLR, pain with all hip motions Knee Goniometric Range of Motion Knee meño Knee ROM WFL Yes Ankle and Foot Goniometric Range of Motion Ankle and Foot meño Ankle/Foot ROM WFL Yes PT-OP-L Special Tests Start: 12/16/18 14:33 Freq: Status: Active Protocol: Document 12/16/18 14:33 SAK (Rec: 12/18/18 09:42 SAK [id number]) Special Tests Lumbar Spine Special Tests Compression Test Results negative Slump Test Results negative Hip Special Tests Straight Leg Raise Test Results positive left for pain Piriformis Test Results positive for pain left PT-OP-M Strength Start: 12/16/18 14:33 Freq: Status: Active Protocol: Document 12/16/18 14:33 SAK (Rec: 12/18/18 09:42 SAK [id number]) Trunk Strength Trunk Manual Muscle Testing Testing Position Supine Flexion 3+ Fair+ Extension 4- Good- Core Stabilization poor activation of TrA Hip Strength Hip Manual Muscle Testing Left Flexion (L2) 3+ Fair+ Extension (S1) 2+ Poor+ Abduction 3- Fair- External Rotation 3- Fair- Internal Rotation 3+ Fair+ Right Flexion (L2) 4 Good Extension (S1) 3- Fair- Abduction 4- Good- Adduction 3 Fair External Rotation 4 Good Internal Rotation 4+ Good+ Knee Strength Knee Manual Muscle Testing meño Flexion (S2) 4+ Good+ Extension (L3) 4+ Good+ Ankle/Foot Strength Ankle and Foot Manual Muscle Testing meño Dorsiflexion (L4) 4+ Good+ Plantarflexion (S1) 4+ Good+ PT-OP-Q Treatments Start: 12/16/18 14:33 Freq: Status: Active Protocol: Document 03/18/19 14:15 DRAKE (Rec: 03/18/19 16:26 LJ [id number]) Cardio Equipment Recumbent Stepper (Sci-Fit) Duration (Minutes) 5 Resistance 4 Other emphasis on neutral LE alignment achieved Gym Equipment Shuttle Recovery Unilateral Squats Resistance 62# Shuttle Recovery Platform Stable Reps/Time 12 bilateral Bilateral Squats Resistance 100# Shuttle Recovery Platform Stable Reps/Time 15 Shuttle Balance chains red Details balance and wt shift Reps/Duration 5 min Comments mirror for visual feedback. Good trunk control Therapeutic Exercises Supine Exercises TrA with march Reps/Minutes 20x Comments good core control TrA with ball squeeze Reps/Minutes 15x Sitting Exercises ankle eversion, external rotation Resistance yellow Tband Reps/Minutes 2x10 sit to stand Reps/Minutes 5x Standing Exercises hip ab/ad Side bilateral Reps/Minutes 12 Comments standing in // bars during gait training squats Reps/Minutes 10x Comments green band Other Exercises side stepping w/band Equipment Used level 2 Reps/Minutes 40' Comments squat position in // bars Gait Training Gait Activity //bars w/o cane Comments biofeedback in front of mirror with verbal cueing for lifting R heel off floor and stepping onto R toes to correct hip imbalance. Emphasizing Rknee flexion, extension, and hip stability. PT-OP-R Modalities Start: 12/16/18 14:33 Freq: Status: Active Protocol: Document 02/20/19 09:00 LJ (Rec: 02/20/19 14:34 LJ [id number]) Hot Pack/Cold Pack Treatment Hot Pack Location left hip to knee Patient Position Sidelying Treatment Duration (minutes) 10 PT-OP-S Aquatic Treatment Start: 12/16/18 14:33 Freq: Status: Active Protocol: Document 03/04/19 11:45 NFW (Rec: 03/04/19 15:31 NFW [id number]) Aquatics Treatment Pool Entry/Exit Pool Entry/Exit Method Stairs Assistance Independent Water Walking [place] March Water Level Chest Level Lunge Walk Water Level Chest Level march Water Level Chest Level Sideways Water Level Chest Level backward Water Level Chest Level forward Water Level Waist Level Level of Assistance Standby Assistance Comments Emphasis on Heel to toe progression. Lower Extremity Exercises hip circles Body Position Standing Water Level Chest Level Reps/Duration 10x CW, CCW hip flex/ext Body Position Standing Water Level Chest Level Reps/Duration 10x Hip abduction Body Position Standing Water Level Chest Level Reps/Duration 10x squats Body Position Standing Water Level Chest Level Reps/Duration 10 x2 Lower Extremity Stretches hip flexor Body Position Standing Water Level Chest Level Equipment Small Noodle Reps/Duration 2x30 quad Body Position Standing Water Level Chest Level Reps/Duration 2x30 ITB Body Position Standing Water Level Chest Level Equipment Large Noodle HS Body Position Standing Water Level Chest Level Equipment Large Noodle [place] Activities [place] Activities Bicycle,Cross [place] Other Activities DLS with medium barbells PT-OP-T Assessment and Plan Start: 12/16/18 14:33 Freq: Status: Active Protocol: Document 03/18/19 14:15 DRAKE (Rec: 03/18/19 16:26 DRAKE [id number]) Physical Therapy Assessment Rehab Potential Rehabilitation Potential Good Evaluation Complexity Number of Personal Factors/Comorbidities 3 or More Number of Body Systems Impaired 3 Clinical Presentation at Evaluation Evolving Impairments Impairments Functional Mobility,Gait,Pain, Strength Goals Four Impairment weakness bilateral hips and core Short Term Goal (STG) Patient to be independent and compliant with HEP with ongoing progression 01/26/19: good goal progress, patient highly compliant. We continue to progress her HEP. STG Duration 01/20/19 [facility] Goal (LTG) Patient to demonstrate core and hip muscle strength of at least 4+/5 03/18/19 MET LTG Duration 03/18/19 Three Impairment functional mobility and activity tolerance [place] 56% Short Term Goal (STG) Decrease Oswestry disability index score to no greater than 40% 01/26/19: not retested today, verbally patient reporting increased activity tolerance, decreased pain Home Health Care Coordinator Goal (LTG) Pt reports returning to her usual activities w/o pain and minimal use of AD oudoors while working in yard 03/18/19 MET Two Impairment antalgic gait Short Term Goal (STG) Patient able to walk with minimal limp using least restrictive assistive device indoors 01/26/19: patient able to walk with single point cane with minimal limp/compensation STG Duration 01/20/19 Home Health Care Coordinator Goal (LTG) Patient able to walk in the house with no device without limp, and with least restrictive device with outdoor gait 03/18/19 MET One Impairment pain Short Term Goal (STG) decrease pain to no greater than 3/10 01/26/19: good progress, knee pain largest issue today. Home Health Care Coordinator Goal (LTG) decrease pain to no greater than 2/10 with all usual activities 03/18/19 MET pt reports no pain in lumbar, hip, or knees with activity LTG Duration 03/18/19 Assessment Summary Assessment Pt assessed for MMT meeting all goals of 4+/5 with all muscles in initial eval reassessed. Pt has improved gait mechanics and is now ambulating with less antalgic gait, no pain, and using SPC for longer distances ar very uneven ground only. Physical Therapy Plan Frequency and Duration Frequency of Treatment 2x/Week Duration of Treatment 12 wks Plan of Care Start Date 12/16/18 Plan of Care End Date 03/18/19 Therapeutic Interventions Therapeutic Interventions Aquatic Therapy,Gait Training, Home Exercise Program,Manual Therapy,Neuromuscular Re- education,Patient/Caregiver Education,Self-Care/Home Management,Soft Tissue Mobilization,Taping, Therapeutic Activities, Therapeutic Exercises Modalities Cold Pack/Ice Massage,Electric Stimulation,Hot Packs, Iontophoresis,Traction- Mechanical,Ultrasound Next Visit Focus/Plan Next Note Type Treatment Note Next Visit Plan Hold pt therapy for reassessment when PT returns on or about 03/30/19
--- NOTE | 2019-04-07 15:49 | PT.OTN ---
Current Diagnoses Spondylosis without myelopathy or radiculopathy, lumbar region (04/07/19) Radiculopathy, lumbar region (04/07/19) Difficulty in walking, not elsewhere classified (04/07/19) Abnormal posture (04/07/19) Weakness (04/07/19) Other specified injury of muscle, fascia and tendon of the posterior muscle group at thigh level, left thigh, initial encounter (04/07/19) Physical Therapy Treatment Note PT-OP-A Visit Information Start: 12/16/18 14:33 Freq: Status: Active Protocol: Document 04/07/19 09:45 SAK (Rec: 04/07/19 10:34 SAK [id number]) Out-Patient Physical Therapy Visit Information Visit Information Visit Type Treatment Note Visit Start Time 14:30 Visit Stop Time 15:14 Total Visit Minutes 45 Visit Number 22 Number of UTILITY ASSEMBLER Visits 0 PT-OP-B Current Condition Start: 12/16/18 14:33 Freq: Status: Active Protocol: Document 12/18/18 14:55 SAK (Rec: 12/21/18 13:06 SAK [id number]) Current Condition History of Current Condition Onset Date 2 months Current Complaints left hip and thigh pain History of Current Condition Gradual onset worsening left hip and posterior thigh pain, mild increase in LBP. Now with very limited walking due to pain, unable to do yardwork due to pain. Developed abcess in vaginal area, hasn't been able to go to pool since September 2018, plus 2 bladder infections in past couple months; just finished antibiotics yesterday. No orthotics, wears compression stockings knee high meño. Not using any ice or heat, sleeps on back with pillow under knees or in chair . Reports 2 years of occasional tingling left foot. Left knee gives way at times, step to pattern on stairs due to left knee pain Prior Treatments and Tests MRI showed narrowing in spinal canal and L3-4 History of prior Right MILADY, bilaterl TKA's, left ORIF. Future Testing and Treatments Planned getting cortisone shot in lumbar spine Saturday12/23/18 Personal Factors Other Personal Factors That May Effect Muscle soreness after Therapy/Recovery evaluation PT-OP-C Subjective Start: 12/16/18 14:33 Freq: Status: Active Protocol: Document 04/07/19 09:45 SAK (Rec: 04/07/19 10:34 [facility] [id number]) OP-PT Subjective Patient Comments Patient Comments Better, though legs still feel weak. Doing HEP. No more pain, pleased with that. Agreeable to discharge today. Plans to continue with independent HEP and aquatic ex program. Needs to clarify HEP. PT-OP-G Mobility & Gait Start: 12/16/18 14:33 Freq: Status: Active Protocol: Document 12/16/18 14:33 [facility] (Rec: 12/18/18 09:42 [facility] [id number]) OP Mobility Evaluation Bed Mobility Rolling painful Supine to and from Sit painful Transfers Sit to Stand painful Functional Movements Squats braces LE's together OP Gait Assessment Gait Gait Assistance Required: Independent Assistive Devices Assistive Device None Gait Deviations General Gait Pattern Antalgic,Decreased Stride Length,Decreased Feet Clearance,Wide Based Gait Factors Limiting Gait Function Factors Limiting Gait Function Pain PT-OP-J Posture/Palpation/Skin Start: 12/16/18 14:33 Freq: Status: Active Protocol: Document 12/16/18 14:33 [facility] (Rec: 12/18/18 09:42 [facility] [id number]) Posture Evaluation Position Standing Head/C-Spine Posture Forward Head T-Spine Posture Fixed Scoliosis on (R), Increased Kyphosis L-Spine Posture Flattened Scapula Posture (L) Protracted,(R) Protracted Arm Posture (L) Internally Rotated,(R) Internally Rotated Hip Posture (L) Flexed,(R) Flexed,(L) Externally Rotated,(R) Externally Rotated Knee Posture (L) Genu Valgus Palpation Assessment Location left piriformis Palpation Findings Tenderness left greater trochanter\ Palpation Findings Tenderness Skin Assessment Other Assessments Skin Assessment Comments skin intact lumbar spine, hip and buttock PT-OP-K Range of Motion Start: 12/16/18 14:33 Freq: Status: Active Protocol: Document 12/16/18 14:33 [facility] (Rec: 12/18/18 09:42 [facility] [id number]) Lumbar Spine Range of Motion Lumbar Spine Active Testing Position Standing Flexion 20 Extension 0 Rotation Left 15 Rotation Right 15 Lateral Flexion Left 35 Lateral Flexion Right 30 ROM Limitations Soft Tissue Tightness,Pain Hip Goniometric Range of Motion Hip Left Hip ROM WFL Yes Flexion w/Knee Flexed 90 Straight Leg Raise 65 Extension 0 Abduction 25 Internal Rotation 15 External Rotation 55 right Testing Position Supine Flexion w/Knee Flexed 100 Straight Leg Raise 65 Extension 0 Abduction 25 Internal Rotation 20 External Rotation 55 Hip ROM Limitations Hip ROM Limitations Pain Comments unable to hold left LE in SLR, pain with all hip motions Knee Goniometric Range of Motion Knee mñeo Knee ROM WFL Yes Ankle and Foot Goniometric Range of Motion Ankle and Foot meño Ankle/Foot ROM WFL Yes PT-OP-L Special Tests Start: 12/16/18 14:33 Freq: Status: Active Protocol: Document 12/16/18 14:33 [facility] (Rec: 12/18/18 09:42 [facility] [id number]) Special Tests Lumbar Spine Special Tests Compression Test Results negative Slump Test Results negative Hip Special Tests Straight Leg Raise Test Results positive left for pain Piriformis Test Results positive for pain left PT-OP-M Strength Start: 12/16/18 14:33 Freq: Status: Active Protocol: Document 12/16/18 14:33 [facility] (Rec: 12/18/18 09:42 [facility] [id number]) Trunk Strength Trunk Manual Muscle Testing Testing Position Supine Flexion 3+ Fair+ Extension 4- Good- Core Stabilization poor activation of TrA Hip Strength Hip Manual Muscle Testing Left Flexion (L2) 3+ Fair+ Extension (S1) 2+ Poor+ Abduction 3- Fair- External Rotation 3- Fair- Internal Rotation 3+ Fair+ Right Flexion (L2) 4 Good Extension (S1) 3- Fair- Abduction 4- Good- Adduction 3 Fair External Rotation 4 Good Internal Rotation 4+ Good+ Knee Strength Knee Manual Muscle Testing meoñ Flexion (S2) 4+ Good+ Extension (L3) 4+ Good+ Ankle/Foot Strength Ankle and Foot Manual Muscle Testing meño Dorsiflexion (L4) 4+ Good+ Plantarflexion (S1) 4+ Good+ PT-OP-Q Treatments Start: 12/16/18 14:33 Freq: Status: Active Protocol: Document 04/07/19 09:45 [facility] (Rec: 04/07/19 10:34 [facility] [id number]) Cardio Equipment Recumbent Stepper (Sci-Fit) Duration (Minutes) 5 Resistance 4 Other emphasis on neutral LE alignment Treadmill Duration (Minutes) 5 Speed 1.2 Incline 0 Other c/o left LE fatigue Gym Equipment Shuttle Balance chains red Details balance and wt shift Reps/Duration 5 min Comments mirror for visual feedback. Good trunk control Therapeutic Exercises Sidelying Exercises hip abd Reps/Minutes 5x Comments cues for neutral LE alignment clamshell Reps/Minutes 5x Comments instructed to use theraband at home Standing Exercises squats Reps/Minutes 5x Comments cues for alignment and gluteal activation SLS Side bilateral Reps/Minutes 2x ea with cues for alignment Other Exercises side stepping w/band Comments instructed to do at home at counter Manual Therapy Treatment Manual Techniques MMT meño LE's Reps/Duration 10' Self-Care/Home Management Treatment Education Patient Education Home Exercise Program,Posture, Safety PT-OP-R Modalities Start: 12/16/18 14:33 Freq: Status: Active Protocol: Document 02/20/19 09:00 LJ (Rec: 02/20/19 14:34 LJ [id number]) Hot Pack/Cold Pack Treatment Hot Pack Location left hip to knee Patient Position Sidelying Treatment Duration (minutes) 10 PT-OP-S Aquatic Treatment Start: 12/16/18 14:33 Freq: Status: Active Protocol: Document 03/04/19 11:45 NFW (Rec: 03/04/19 15:31 NFW [id number]) Aquatics Treatment Pool Entry/Exit Pool Entry/Exit Method Stairs Assistance Independent Water Walking Dietrich March Water Level Chest Level Lunge Walk Water Level Chest Level march Water Level Chest Level Sideways Water Level Chest Level backward Water Level Chest Level forward Water Level Waist Level Level of Assistance Standby Assistance Comments Emphasis on Heel to toe progression. Lower Extremity Exercises hip circles Body Position Standing Water Level Chest Level Reps/Duration 10x CW, CCW hip flex/ext Body Position Standing Water Level Chest Level Reps/Duration 10x Hip abduction Body Position Standing Water Level Chest Level Reps/Duration 10x squats Body Position Standing Water Level Chest Level Reps/Duration 10 x2 Lower Extremity Stretches hip flexor Body Position Standing Water Level Chest Level Equipment Small Noodle Reps/Duration 2x30 quad Body Position Standing Water Level Chest Level Reps/Duration 2x30 ITB Body Position Standing Water Level Chest Level Equipment Large Noodle HS Body Position Standing Water Level Chest Level Equipment Large Noodle [place] Activities [place] Activities Bicycle,[place] Other Activities DLS with medium barbells PT-OP-T Assessment and Plan Start: 12/16/18 14:33 Freq: Status: Active Protocol: Document 04/07/19 09:45 SAK (Rec: 04/07/19 15:49 SAK [id number]) Physical Therapy Assessment Goals Four Impairment weakness bilateral hips and core Short Term Goal (STG) Patient to be independent and compliant with HEP with ongoing progression 01/26/19: good goal progress, patient highly compliant. We continue to progress her HEP. STG Duration 01/20/19 Mcc Goal (LTG) Patient to demonstrate core and hip muscle strength of at least 4+/5 03/18/19 MET LTG Duration goal met Three Impairment functional mobility and activity tolerance [place] 56% Short Term Goal (STG) Decrease Oswestry disability index score to no greater than 40% 01/26/19: not retested today, verbally patient reporting increased activity tolerance, decreased pain Pbx Installer Goal (LTG) Pt reports returning to her usual activities w/o pain and minimal use of AD oudoors while working in yard 03/18/19 MET LTG Duration goal met. Two Impairment antalgic gait Short Term Goal (STG) Patient able to walk with minimal limp using least restrictive assistive device indoors 01/26/19: patient able to walk with single point cane with minimal limp/compensation STG Duration 01/20/19 Pbx Installer Goal (LTG) Patient able to walk in the house with no device without limp, and with least restrictive device with outdoor gait 04/07/19: no device in home, uses trekking poles for taking walks but not while gardening (though reports using hoe at times for stability). Mild limp/dropping of hip. 03/18/19 MET One Impairment pain Short Term Goal (STG) decrease pain to no greater than 3/10 01/26/19: good progress, knee pain largest issue today. Mcc Goal (LTG) decrease pain to no greater than 2/10 with all usual activities 03/18/19 MET pt reports no pain in lumbar, hip, or knees with activity LTG Duration 03/18/19 Assessment Summary Assessment Goals achieved, patient ready for discharge. Physical Therapy Plan Discharge Physical Therapy Discharge Reasons Goals Met
== END 2019-07-29 12:02 ==
LOC: PHYS 09:45
PROVIDERS: PCP Student in an Organized Health Care Education/Training Program; Visit Provider Orthopaedic Surgery
DX: M54.16 Radiculopathy, lumbar region (principal); S76.392A Other specified injury of muscle, fascia and tendon of the posterior muscle group at thigh level, left thigh, initial encounter; R53.1 Weakness; R29.3 Abnormal posture; R26.2 Difficulty in walking, not elsewhere classified; M47.816 Spondylosis without myelopathy or radiculopathy, lumbar region
CPT/HCPCS: 97010; 97110; 97112; 97113; 97116; 97140; 97162; 97535

== ENCOUNTER 2019-04-14 09:29 | Emergency (ER) | payer OTHER, SELFPAY ==
[2019-04-14 09:47] VITALS: BP 126/69; PULSE 47; RESP 16; TEMP 37; O2SAT 94; BMI 27.4
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
[2019-04-14 10:04] VITALS: BP 110/61; PULSE 79; RESP 16; O2SAT 98
[2019-04-14 10:31] VITALS: BP 116/65; PULSE 61; RESP 16; O2SAT 95
== END 2019-04-14 10:41 | disposition home or self-care (01) ==
PROVIDERS: Emergency Provider Emergency Medicine; PCP Student in an Organized Health Care Education/Training Program
DX: S09.90XA Unspecified injury of head, initial encounter (principal); M25.511 Pain in right shoulder; V49.40XA Driver injured in collision with unspecified motor vehicles in traffic accident, initial encounter; I48.91 Unspecified atrial fibrillation; Z79.01 Long term (current) use of anticoagulants
CPT/HCPCS: 70450; 93005; 93041; 99283; 99284

== ENCOUNTER → 2019-04-23 07:11 | Outpatient (CLI) | payer OTHER, SELFPAY ==
[2019-04-23 08:32] LABS: Blood Urea Nitrogen 24 mg/dL (7-17); Calcium 9.5 mg/dL (8.4-10.2); Carbon Dioxide 29 mmol/L (22-32); Chloride 102 mmol/L (98-107); Cholesterol 217 mg/dL (140-199); Estimated Glomerular Filt Rate > 60.0 mL/min (>60); Glucose 105 mg/dL (80-110); HDL Cholesterol 59 mg/dL (40-60); HEMOLYSIS < 15 (0-50); LDL Cholesterol Calculated 146 mg/dL (<100); Potassium 4.2 mmol/L (3.4-5.1); Sodium 137 mmol/L (137-145); Triglycerides 59 mg/dL (35-150)
[2019-04-23 09:45] LABS: INR 2.1 (0.9-1.3); Prothrombin Time 24.7 SECONDS (10.1-12.7)
== END ==
PROVIDERS: PCP Student in an Organized Health Care Education/Training Program; Visit Provider Hospitalist
DX: I10 Essential (primary) hypertension (principal); Z79.01 Long term (current) use of anticoagulants; I51.9 Heart disease, unspecified; I48.21 Permanent atrial fibrillation
CPT/HCPCS: 36415; 80048; 80061; 85610

== ENCOUNTER → 2019-06-25 10:41 | Outpatient (ROUT) | payer OTHER, SELFPAY ==
[2019-06-25 10:49] LABS: INR 2.4 (0.9-1.3)
== END ==
PROVIDERS: PCP Student in an Organized Health Care Education/Training Program; Visit Provider Student in an Organized Health Care Education/Training Program
DX: I48.91 Unspecified atrial fibrillation (principal)
CPT/HCPCS: 85610

== ENCOUNTER → 2019-07-16 10:50 | Outpatient (ROUT) | payer OTHER, SELFPAY ==
[2019-07-16 10:59] LABS: INR 1.7 (0.9-1.3)
== END ==
PROVIDERS: PCP Student in an Organized Health Care Education/Training Program; Visit Provider Student in an Organized Health Care Education/Training Program
DX: I48.91 Unspecified atrial fibrillation (principal); Z79.01 Long term (current) use of anticoagulants
CPT/HCPCS: 85610

== ENCOUNTER → 2019-09-23 15:29 | Outpatient (CLI) | payer OTHER, SELFPAY | PROVIDERS: PCP Student in an Organized Health Care Education/Training Program; Visit Provider Obstetrics & Gynecology | DX: R30.0 Dysuria (principal); R35.0 Frequency of micturition; R82.90 Unspecified abnormal findings in urine | CPT/HCPCS: 87077; 87086; 87186 ==

== ENCOUNTER → 2019-11-04 11:45 | Outpatient (CLI) | payer OTHER, SELFPAY | PROVIDERS: PCP Student in an Organized Health Care Education/Training Program; Visit Provider Obstetrics & Gynecology | DX: R32 Unspecified urinary incontinence (principal); Z87.440 Personal history of urinary (tract) infections | CPT/HCPCS: 87086 ==

== ENCOUNTER → 2019-12-08 14:52 | Outpatient (CLI) | payer OTHER, SELFPAY ==
[2019-12-08 15:31] LABS: BUN Creatinine Ratio 22.9 (6-22); Blood Urea Nitrogen 16 mg/dL (7-17); Carbon Dioxide 29 mmol/L (22-32); Chloride 102 mmol/L (98-107); Estimated Glomerular Filt Rate > 60.0 mL/min (>60); Glucose 141 mg/dL (80-110); HEMOLYSIS < 15 (0-50); Potassium 4.4 mmol/L (3.4-5.1); Sodium 136 mmol/L (137-145)
== END ==
PROVIDERS: PCP Student in an Organized Health Care Education/Training Program; Referring Provider Hospitalist; Visit Provider Hospitalist
DX: I10 Essential (primary) hypertension (principal)
CPT/HCPCS: 36415; 80048

== ENCOUNTER 2020-02-05 14:28 | Emergency (ER) | payer OTHER, SELFPAY ==
[2020-02-05] VITALS (7 sets, daily range): BP systolic 129–145; BP diastolic 58–66; PULSE 52–64; RESP 15–20; TEMP 36.7; O2SAT 94–99; BMI 29.1
--- NOTE | 2020-02-05 14:38 | DI.RAD.S_ITS ---
PROCEDURE: XR CHEST 1V INDICATIONS: chest pain TECHNIQUE: One view of the chest was acquired. COMPARISON: [facility], CHEST 2 VIEW, 01/13/2016, 13:34. [facility], CHEST 1 VIEW, 04/22/2017, 14:56. FINDINGS: Surgical changes and devices: None. Lungs and pleura: Lungs are clear. No pleural effusions or pneumothorax. Mediastinum: The cardiac contours are moderately enlarged. The aorta demonstrates calcification and tortuosity. Bones and chest wall: No suspicious bony lesions. Age-appropriate bony degenerative changes are seen. Overlying soft tissues appear unremarkable. IMPRESSION: Moderate cardiomegaly. Clear lungs. Dictated by: Federico Pope M.D. on 02/05/2020 at 14:02 Approved by: Federico Pope M.D. on 02/05/2020 at 14:03
[2020-02-05 15:00] LABS: Add Manual Diff / Slide Review NO; Basophils Absolute Auto 100 /uL (0-100); Basophils Percent Auto 1.1 % (0-2); Eosinophils Absolute Auto 200 /uL (0-450); Eosinophils Percent Auto 4.6 % (2-4); Hematocrit 38.1 % (36-46); Lymphocytes Absolute Auto 1600 /uL (1100-4500); Lymphocytes Percent Auto 32.9 % (25-40); Mean Corpuscular HGB Conc 34.1 % (30-36); Mean Corpuscular Hemoglobin 34.3 PG (26-34); Mean Corpuscular Volume 100.4 fL (80-100); Monocytes Absolute Auto 500 /uL (0-900); Monocytes Percent Auto 10.5 % (3-14); Neutrophils Absolute Auto 2500 /uL (1500-7000); Neutrophils Percent Auto 50.9 % (50-75); Platelet Count 190 X10^3/uL (150-400); Red Blood Cell Count 3.79 X10^6/uL (4.0-5.2); Red Cell Distribution Width 12.9 % (11.6-14.8); White Blood Cell Count 4.8 X10^3/uL (4.5-11.0)
[2020-02-05 15:14] LABS: INR 2.9 (0.9-1.3); Prothrombin Time 33.4 SECONDS (10.1-12.7)
[2020-02-05 15:17] LABS: PTT Partial Thromboplastin Tim 47 SECONDS (26.4-36.2)
[2020-02-05 15:22] LABS: Alanine Aminotransferase 23 IU/L (<35); Albumin 3.8 g/dL (3.5-5.0); Albumin Globulin Ratio 1.1 (1.0-2.8); Alkaline Phosphatase 74 U/L (38-126); Aspartate Aminotransferase 35 IU/L (14-36); BUN Creatinine Ratio 22.8 (6-22); Bilirubin Total 0.7 mg/dL (0.2-1.3); Blood Urea Nitrogen 18 mg/dL (7-17); Calcium 9.3 mg/dL (8.4-10.2); Carbon Dioxide 28 mmol/L (22-32); Chloride 104 mmol/L (98-107); Creatine Kinase 70 U/L (30-135); Estimated Glomerular Filt Rate > 60.0 mL/min (>60); Globulin 3.6 g/dL (1.7-4.1); Glucose 103 mg/dL (80-110); HEMOLYSIS < 15 (0-50); Lipase 99 U/L (23-300); Potassium 4.2 mmol/L (3.4-5.1); Sodium 139 mmol/L (137-145); Total Protein 7.4 g/dL (6.3-8.2)
[2020-02-05 15:34] LABS: Troponin I < 0.012 ng/mL (0.01-0.034)
[2020-02-05 16:36] LABS: Bacteria Urine Many (>30); Culture Indicated Urine Specimen Cultured; RBC Urine 1-5/HPF (0-5/HPF); Squamous Epithelial Cell Urine 1-5 /HPF (0-5/HPF); WBC Urine 5-10/HPF (0-5/HPF)
[2020-02-05 16:39] LABS: NT-proBNP (BNP-Adult 18+) 790 pg/mL (<450)
[2020-02-05 17:33] LABS: Creatine Kinase 68 U/L (30-135)
[2020-02-05 17:45] LABS: Troponin I < 0.012 ng/mL (0.01-0.034)
--- NOTE | 2020-02-05 17:45 | ED.CHESTPAIN ---
HPI - Chest Pain <Gina ConstantinoCOTY randP-BC - Last Filed: 02/05/20 20:50> General Chief Complaint: Chest Pain Stated Complaint: indigestion, heaviness in chest Time Seen by Provider: 02/05/20 16:17 Source: patient Mode of arrival: Ambulatory Limitations: no limitations History of Present Illness HPI narrative: The patient is a 79-year-old female former smoker with history of mitral stenosis, CHF, atrial fibrillation on Coumadin who presents with a chief complaint of waking up with indigestion last night at approximately 1:30 a.m. in the morning. She had profuse belching and some heaviness over her sternum. She does not know how long that Gerald, which she stated was not very long and she was able to go back to sleep. Then she had another episode at 1:00 p.m.. She states that she does not have any pain lightheadedness or dizziness. She denies any palpitations or swelling of her extremities. She denies any cough or congestion. Related Data Home Medications Medication Instructions Recorded Confirmed [FISHOIL] 1,000 mg PO Q DAY #0 01/30/12 11/04/19 multivitamin [Multiple Vitamins] 1 tab PO DAILY #0 08/05/17 11/04/19 calcium citrate 500 mg PO BID tab 09/25/18 11/04/19 cholecalciferol (vitamin D3) 50 2,000 unit PO BID cap 09/25/18 11/04/19 mcg (2,000 unit) capsule fluticasone propionate 50 2 spray NASAL DAILY PRN gram 11/10/18 11/04/19 mcg/actuation nasal spray,suspension furosemide 20 mg tablet 20 mg PO EVEROTHDAY PRN tab 11/10/18 11/04/19 clobetasol TOP 09/23/19 11/04/19 estradiol 1 gram VAG .HS tube 09/23/19 11/04/19 Previous Rx's Medication Instructions Recorded warfarin 5 mg tablet 5 mg PO SEE INSTRUCTIONS #150 tab 02/10/19 carvedilol 12.5 mg tablet 12.5 mg PO BID #180 tab 07/14/19 oxybutynin chloride 5 mg 5 mg PO DAILY #30 tab 11/11/19 tablet,extended release 24 hr losartan 25 mg tablet 25 mg PO DAILY #90 tab 11/24/19 nitrofurantoin monohyd/m-cryst 100 mg PO Q12H 7 Days #14 cap 02/05/20 [Macrobid] Allergies Allergy/AdvReac Type Severity Reaction Status Date / Time acetaminophen Allergy Mild UPSET Verified 02/05/20 14:38 STOMACH digoxin Allergy Mild SWELLING Verified 02/05/20 14:38 LOWER EXTRMITIES hydromorphone Allergy Mild N/V Verified 02/05/20 14:38 adhesive Allergy Unknown SENSITVE Verified 02/05/20 14:38 TO TAPE ibuprofen AdvReac Mild UNABLE TO Verified 02/05/20 14:38 TAKE DUE TO COUMADIN meperidine AdvReac Mild GI UPSET Verified 02/05/20 14:38 WITH VOMITING xylitol AdvReac Mild diarrhea Verified 02/05/20 14:38 and upset stomach Review of Systems <YEN Ahuja - Last Filed: 02/05/20 20:50> Review of Systems Narrative: GENERAL: Denies chills, fatigue, malaise, fever, sweats. HEENT: Denies sinus pain, ear pain, sore throat, difficulty swallowing, dizziness. RESPIRATORY: Denies dyspnea, cough, wheezing, hemoptysis, sputum. CARDIOVASCULAR: See HPI GASTROINTESTINAL: See HPI : Denies dysuria, frequency, incontinence, hematuria, urinary retention. MUSCULOSKELETAL: denies weakness, joint pain, or bony pain SKIN: Denies rash, skin lesions, or other NEUROLOGIC: Denies weakness, headache, numbness, change in speech, confusion, seizures, incoordination. PSYCHIATRIC: No concerning psychosocial issues. 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) Fractures (Resolved 10/08/07) Hayfever (Chronic 1959) Heart failure, systolic (Chronic) Lichen sclerosus et atrophicus (Chronic 2011) Measles (Resolved 1948) Mitral stenosis (Chronic) Osteoarthritis (Chronic 1996) Osteopenia (Chronic) Osteoporosis (Chronic) Surgical History Anesthesia (Resolved) History of carpal tunnel repair (Resolved 1979) History of carpal tunnel repair (Resolved 03/23/04) History of cataract removal with insertion of prosthetic lens (Resolved 01/02/12) History of cataract removal with insertion of prosthetic lens (Resolved 12/19/11) History of hip replacement (Resolved 05/08/10) History of hip surgery (Resolved 05/16/08) History of hip surgery (Resolved 10/08/07) History of knee replacement (Resolved 02/11/12) History of knee replacement (Resolved 07/19/08) History of nasal surgery (Resolved 10/03/11) History of orthopedic surgery (Resolved 10/17/09) Status post vaginal hysterectomy (Resolved 1974) Family History Father Family history of HI (myocardial infarction) Heart disease Congestive heart failure Mother Cancer Myeloma Necrotizing fasciitis Brother MVA (motor vehicle accident) Sister No problems noted. Daughter No problems noted. Son No problems noted. Social History household members: spouse Smoking Status: Former smoker Smoking Status: Former smoker alcohol intake frequency: other Substance Use Type: does not use Exam <YEN Ahuja - Last Filed: 02/05/20 20:50> Narrative Exam Narrative: GENERAL: This is a well-nourished, well-developed patient, in no acute distress HEAD: Atraumatic. Normocephalic. No temporal or scalp tenderness. EYES: Pupils equal round and reactive. Extraocular motions intact. No scleral icterus. No injection or drainage. ENT: Nose without bleeding, purulent drainage or septal hematoma. Throat without erythema, tonsillar hypertrophy or exudate. Uvula midline. Airway patent. NECK: Trachea midline. No JVD or lymphadenopathy. Supple, nontender, no meningeal signs. CARDIOVASCULAR: Regular rate and irregular rhythm RESPIRATORY: Clear to auscultation. Breath sounds equal bilaterally. No wheezes, rales, or rhonchi. No cough. No increased respiratory effort. No accessory muscle use. GASTROINTESTINAL: Abdomen soft, non-tender, nondistended. No hepato-splenomegaly, or palpable masses. No guarding. Active bowel sounds all 4 quadrants. EXTREMITIES: No clubbing, cyanosis, or edema. No joint tenderness, effusion, or edema noted. BACK: Nontender without deformity or crepitance. No flank tenderness. NEURO: AOx3. SKIN: No rash or erythema on visible skin Initial Vital Signs Initial Vital Signs: Vital Signs Temperature 98.0 F 02/05/20 14:31 Pulse Rate 64 02/05/20 14:31 Respiratory Rate 16 02/05/20 14:31 Blood Pressure 144/66 H 02/05/20 14:31 Pulse Oximetry 99 02/05/20 14:31 <Mirella Sauceda MD - Last Filed: 02/10/20 07:46> Initial Vital Signs Initial Vital Signs: Vital Signs Temperature 98.0 F 02/05/20 14:31 Pulse Rate 64 02/05/20 14:31 Respiratory Rate 16 02/05/20 14:31 Blood Pressure 144/66 H 02/05/20 14:31 Pulse Oximetry 99 02/05/20 14:31 Scores <YEN Ahuja - Last Filed: 02/05/20 20:50> GCS Peña coma scale eye opening: Spontaneous [place] coma scale verbal response: Orientated [place] coma scale motor response: Obey commands Peña coma scale total score: 15 Course <YEN Ahuja - Last Filed: 02/05/20 20:50> Orders Ordered: ED Orders 02/05/20 14:38 XR chest 1V Stat EKG-12 Lead Stat 02/05/20 14:52 Complete Blood Count AUTO DIFF Stat Comprehensive Metabolic Panel Stat Lipase Stat NT-proBNP (BNP-Adult 18+) Stat Partial Thromboplastin Time Stat Prothrombin Time INR Stat Troponin & CK Cardiac Panel Stat 02/05/20 16:15 Urine Culture Stat Urine Microscopic Stat 02/05/20 17:14 Troponin & CK Cardiac Panel Stat Vital Signs Vital signs: Vital Signs - 8 hr 02/05/20 14:31 02/05/20 15:40 02/05/20 17:21 Temperature 98.0 F Pulse Rate 64 52 L 60 Respiratory Rate 16 16 15 Blood Pressure 144/66 H 129/63 145/58 H Pulse Oximetry 99 96 96 02/05/20 17:30 02/05/20 18:00 02/05/20 18:30 Temperature Pulse Rate 58 L 61 62 Respiratory Rate 18 20 19 Blood Pressure 132/63 130/61 Pulse Oximetry 95 95 95 02/05/20 18:31 Temperature Pulse Rate 63 Respiratory Rate 17 Blood Pressure 138/63 Pulse Oximetry 94 <Mirella Sauceda MD - Last Filed: 02/10/20 07:46> Orders Ordered: ED Orders 02/05/20 14:38 XR chest 1V Stat EKG-12 Lead Stat 02/05/20 14:52 Complete Blood Count AUTO DIFF Stat Comprehensive Metabolic Panel Stat Lipase Stat NT-proBNP (BNP-Adult 18+) Stat Partial Thromboplastin Time Stat Prothrombin Time INR Stat Troponin & CK Cardiac Panel Stat 02/05/20 16:15 Urine Culture Stat Urine Microscopic Stat 02/05/20 17:14 Troponin & CK Cardiac Panel Stat Vital Signs Vital signs: Vital Signs - 8 hr 02/05/20 14:31 02/05/20 15:40 02/05/20 17:21 Temperature 98.0 F Pulse Rate 64 52 L 60 Respiratory Rate 16 16 15 Blood Pressure 144/66 H 129/63 145/58 H Pulse Oximetry 99 96 96 02/05/20 17:30 02/05/20 18:00 02/05/20 18:30 Temperature Pulse Rate 58 L 61 62 Respiratory Rate 18 20 19 Blood Pressure 132/63 130/61 Pulse Oximetry 95 95 95 02/05/20 18:31 Temperature Pulse Rate 63 Respiratory Rate 17 Blood Pressure 138/63 Pulse Oximetry 94 MDM - Chest Pain <YEN Ahuaj - Last Filed: 02/05/20 20:50> Differential Diagnosis Differential diagnosis: Likely stable angina, unstable angina pectoris, atypical chest pain, st elevation myocardial infarction and costochondritis Lab Data Attestation: I reviewed the patient's lab results. Result diagrams: 02/05/20 14:52 02/05/20 14:52 Labs: Lab Results 02/05/20 02/05/20 02/05/20 Range/Units 14:52 14:52 14:52 WBC 4.8 (4.5-11.0) X10^3/uL RBC 3.79 L (4.0-5.2) X10^6/uL Hgb 13.0 (12.0-16.0) g/dL Hct 38.1 (36-46) % MCV 100.4 H (80-100) fL MCH 34.3 H (26-34) PG MCHC 34.1 (30-36) % RDW 12.9 (11.6-14.8) % Plt Count 190 (150-400) X10^3/uL Neut % (Auto) 50.9 (50-75) % Lymph % (Auto) 32.9 (25-40) % [place] % (Auto) 10.5 (3-14) % Eos % (Auto) 4.6 H (2-4) % Baso % (Auto) 1.1 (0-2) % Neut # (Auto) 2500 (1262-2694) /uL Lymph # (Auto) 1600 (3844-0787) /uL [place] # (Auto) 500 (0-900) /uL Eos # (Auto) 200 (0-450) /uL Baso # (Auto) 100 (0-100) /uL PT 33.4 H (10.1-12.7) SECONDS INR 2.9 H (0.9-1.3) APTT 47 H (26.4-36.2) SECONDS Sodium 139 (137-145) mmol/L Potassium 4.2 (3.4-5.1) mmol/L Chloride 104 (98-107) mmol/L Carbon Dioxide 28 (22-32) mmol/L BUN 18 H (7-17) mg/dL Creatinine 0.79 (0.52-1.04) mg/dL Estimated GFR > 60.0 (>60) mL/min BUN/Creatinine Ratio 22.8 H (6-22) Glucose 103 (80-110) mg/dL Calcium 9.3 (8.4-10.2) mg/dL Total Bilirubin 0.7 (0.2-1.3) mg/dL AST 35 (14-36) IU/L ALT 23 (<35) IU/L Alkaline Phosphatase 74 (38-126) U/L Total Creatine Kinase 70 (30-135) U/L CK-MB (CK-2) TNP CK-MB (CK-2) Rel Index TNP Troponin I < 0.012 (0.01-0.034) ng/mL NT-Pro-B Natriuret Pep (<450) pg/mL Total Protein 7.4 (6.3-8.2) g/dL Albumin 3.8 (3.5-5.0) g/dL Globulin 3.6 (1.7-4.1) g/dL Albumin/Globulin Ratio 1.1 (1.0-2.8) Lipase 99 (23-300) U/L Urine RBC (0-5/HPF) Urine WBC (0-5/HPF) Ur Squamous Epith Cells (0-5/HPF) Urine Bacteria (None) Ur Culture Indicated? 02/05/20 02/05/20 02/05/20 Range/Units 14:52 16:15 17:14 WBC (4.5-11.0) X10^3/uL RBC (4.0-5.2) X10^6/uL Hgb (12.0-16.0) g/dL Hct (36-46) % MCV (80-100) fL MCH (26-34) PG MCHC (30-36) % RDW (11.6-14.8) % Plt Count (150-400) X10^3/uL Neut % (Auto) (50-75) % Lymph % (Auto) (25-40) % [place] % (Auto) (3-14) % Eos % (Auto) (2-4) % Baso % (Auto) (0-2) % Neut # (Auto) (0541-5754) /uL Lymph # (Auto) (5962-4398) /uL [place] # (Auto) (0-900) /uL Eos # (Auto) (0-450) /uL Baso # (Auto) (0-100) /uL PT (10.1-12.7) SECONDS INR (0.9-1.3) APTT (26.4-36.2) SECONDS Sodium (137-145) mmol/L Potassium (3.4-5.1) mmol/L Chloride (98-107) mmol/L Carbon Dioxide (22-32) mmol/L BUN (7-17) mg/dL Creatinine (0.52-1.04) mg/dL Estimated GFR (>60) mL/min BUN/Creatinine Ratio (6-22) Glucose (80-110) mg/dL Calcium (8.4-10.2) mg/dL Total Bilirubin (0.2-1.3) mg/dL AST (14-36) IU/L ALT (<35) IU/L Alkaline Phosphatase (38-126) U/L Total Creatine Kinase 68 (30-135) U/L CK-MB (CK-2) TNP CK-MB (CK-2) Rel Index TNP Troponin I < 0.012 (0.01-0.034) ng/mL NT-Pro-B Natriuret Pep 790 H (<450) pg/mL Total Protein (6.3-8.2) g/dL Albumin (3.5-5.0) g/dL Globulin (1.7-4.1) g/dL Albumin/Globulin Ratio (1.0-2.8) Lipase (23-300) U/L Urine RBC 1-5/hpf (0-5/HPF) Urine WBC 5-10/hpf H (0-5/HPF) Ur Squamous Epith Cells 1-5 /hpf (0-5/HPF) Urine Bacteria Many (>30) H (None) Ur Culture Indicated? Specimen cultured Urine Dip Bedside Urine Glucose Negative Bedside Urine Bilirubin - Negative Bedside Urine Ketone - Negative Urine Specific [place] 1.015 Bedside Urine Occult Blood +++ Bedside Urine pH 6.5 Bedside Urine Protein - Negative Bedside Urine Urobilinogen - Negative Bedside Urine Nitrite + Positive Bedside Urine Leukocytes - Negative Esterase Imaging Data Chest x-ray: Radiologist's Impression: [address] [place] [id number] XRay Report Signed Patient: Ana M Gale [facility]#: [id number] : 3Acct:[id number] Age/Sex: 79 / FDate of Service: 02/05/20 Loc: ED Accession Number: [id number] Procedure: XR chest 1V Ordering Provider: Mirella Sauceda MD PROCEDURE: XR CHEST 1V INDICATIONS: chest pain TECHNIQUE: One view of the chest was acquired. [facility], 04/22/2017, 14:56. FINDINGS: Surgical changes and devices: None. Lungs and pleura: Lungs are clear. No pleural effusions or pneumothorax. Mediastinum: The cardiac contours are moderately enlarged. The aorta demonstrates calcification and tortuosity. Bones and chest wall: No suspicious bony lesions. Age-appropriate bony degenerative changes are seen. Overlying soft tissues appear unremarkable. IMPRESSION: Moderate cardiomegaly. Clear lungs. Dictated by: Federico Pope M.D. on 02/05/2020 at 14:02 Approved by: Federico Pope M.D. on 02/05/2020 at 14:03 ECG Data Attestation: I personally reviewed and interpreted this ECG as follows: Interpretation: Atrial fibrillation. Ventricular rate 52. QRS 106. Viewed by Dr. Sauceda. [facility] Narrative Medical decision making narrative: The patient is a 79-year-old female who presents with a chief complaint of epigastric chest pain and belching that woke her up early this morning or EKG has no acute findings. Her initial troponin is negative, repeat troponin is also negative helping rule acute coronary syndrome. The patient has been pain-free throughout her stay in the emergency department. However given her multiple risk factors I offered to try to arrange for an inpatient stress test as she has not had 1 in several years. However the patient declines and states that she wants to go home today. I did discuss that even though she is not having an acute cardiac event right now, cannot provide on in the future and she states understanding of that. I did discussed that due to her comorbidity she is high risk of impending myocardial infarction or acute finding, but she request to go home and follow up with primary care provider. Her pain could be related to at gas and belching as she suspects, but I made sure that she understood possible risks. The patient does have a urinary tract infection, did express concern regarding urine odor and cloudiness. Placed on Macrobid, she has no signs of pyelonephritis, no flank pain fever vomiting etcetera and states understanding of these are return precautions. Encouraged to follow up with primary care provider in the next 48-72 hours. Patient has no questions or concerns upon discharge and states understanding return precautions as well as follow-up care. She was hemodynamically stable throughout her stay in the ER. <Mirella Sauceda MD - Last Filed: 02/10/20 07:46> Lab Data Labs: Lab Results 02/05/20 02/05/20 02/05/20 Range/Units 14:52 14:52 14:52 WBC 4.8 (4.5-11.0) X10^3/uL RBC 3.79 L (4.0-5.2) X10^6/uL Hgb 13.0 (12.0-16.0) g/dL Hct 38.1 (36-46) % MCV 100.4 H (80-100) fL MCH 34.3 H (26-34) PG MCHC 34.1 (30-36) % RDW 12.9 (11.6-14.8) % Plt Count 190 (150-400) X10^3/uL Neut % (Auto) 50.9 (50-75) % Lymph % (Auto) 32.9 (25-40) % [place] % (Auto) 10.5 (3-14) % Eos % (Auto) 4.6 H (2-4) % Baso % (Auto) 1.1 (0-2) % Neut # (Auto) 2500 (6472-1320) /uL Lymph # (Auto) 1600 (0861-6097) /uL [place] # (Auto) 500 (0-900) /uL Eos # (Auto) 200 (0-450) /uL Baso # (Auto) 100 (0-100) /uL PT 33.4 H (10.1-12.7) SECONDS INR 2.9 H (0.9-1.3) APTT 47 H (26.4-36.2) SECONDS Sodium 139 (137-145) mmol/L Potassium 4.2 (3.4-5.1) mmol/L Chloride 104 (98-107) mmol/L Carbon Dioxide 28 (22-32) mmol/L BUN 18 H (7-17) mg/dL Creatinine 0.79 (0.52-1.04) mg/dL Estimated GFR > 60.0 (>60) mL/min BUN/Creatinine Ratio 22.8 H (6-22) Glucose 103 (80-110) mg/dL Calcium 9.3 (8.4-10.2) mg/dL Total Bilirubin 0.7 (0.2-1.3) mg/dL AST 35 (14-36) IU/L ALT 23 (<35) IU/L Alkaline Phosphatase 74 (38-126) U/L Total Creatine Kinase 70 (30-135) U/L CK-MB (CK-2) TNP CK-MB (CK-2) Rel Index TNP Troponin I < 0.012 (0.01-0.034) ng/mL NT-Pro-B Natriuret Pep (<450) pg/mL Total Protein 7.4 (6.3-8.2) g/dL Albumin 3.8 (3.5-5.0) g/dL Globulin 3.6 (1.7-4.1) g/dL Albumin/Globulin Ratio 1.1 (1.0-2.8) Lipase 99 (23-300) U/L Urine RBC (0-5/HPF) Urine WBC (0-5/HPF) Ur Squamous Epith Cells (0-5/HPF) Urine Bacteria (None) Ur Culture Indicated? 02/05/20 02/05/20 02/05/20 Range/Units 14:52 16:15 17:14 WBC (4.5-11.0) X10^3/uL RBC (4.0-5.2) X10^6/uL Hgb (12.0-16.0) g/dL Hct (36-46) % MCV (80-100) fL MCH (26-34) PG MCHC (30-36) % RDW (11.6-14.8) % Plt Count (150-400) X10^3/uL Neut % (Auto) (50-75) % Lymph % (Auto) (25-40) % [place] % (Auto) (3-14) % Eos % (Auto) (2-4) % Baso % (Auto) (0-2) % Neut # (Auto) (7425-8620) /uL Lymph # (Auto) (2876-7175) /uL [place] # (Auto) (0-900) /uL Eos # (Auto) (0-450) /uL Baso # (Auto) (0-100) /uL PT (10.1-12.7) SECONDS INR (0.9-1.3) APTT (26.4-36.2) SECONDS Sodium (137-145) mmol/L Potassium (3.4-5.1) mmol/L Chloride (98-107) mmol/L Carbon Dioxide (22-32) mmol/L BUN (7-17) mg/dL Creatinine (0.52-1.04) mg/dL Estimated GFR (>60) mL/min BUN/Creatinine Ratio (6-22) Glucose (80-110) mg/dL Calcium (8.4-10.2) mg/dL Total Bilirubin (0.2-1.3) mg/dL AST (14-36) IU/L ALT (<35) IU/L Alkaline Phosphatase (38-126) U/L Total Creatine Kinase 68 (30-135) U/L CK-MB (CK-2) TNP CK-MB (CK-2) Rel Index TNP Troponin I < 0.012 (0.01-0.034) ng/mL NT-Pro-B Natriuret Pep 790 H (<450) pg/mL Total Protein (6.3-8.2) g/dL Albumin (3.5-5.0) g/dL Globulin (1.7-4.1) g/dL Albumin/Globulin Ratio (1.0-2.8) Lipase (23-300) U/L Urine RBC 1-5/hpf (0-5/HPF) Urine WBC 5-10/hpf H (0-5/HPF) Ur Squamous Epith Cells 1-5 /hpf (0-5/HPF) Urine Bacteria Many (>30) H (None) Ur Culture Indicated? Specimen cultured Urine Dip Bedside Urine Glucose Negative Bedside Urine Bilirubin - Negative Bedside Urine Ketone - Negative Urine Specific [place] 1.015 Bedside Urine Occult Blood +++ Bedside Urine pH 6.5 Bedside Urine Protein - Negative Bedside Urine Urobilinogen - Negative Bedside Urine Nitrite + Positive Bedside Urine Leukocytes - Negative Esterase Discharge Plan Departure Patient Disposition: Home Clinical Impression: Urinary tract infection Qualifiers: Urinary tract infection type: site unspecified Hematuria presence: without hematuria Qualified Code(s): N39.0 - Urinary tract infection, site not specified Chest pain Qualifiers: Chest pain type: unspecified Qualified Code(s): R07.9 - Chest pain, unspecified Discharge Date/Time: 02/05/20 19:04 Instructions: DI for Urinary Tract Infection (UTI), DI for Atypical Chest Pain, DI for Chest Pain Activity Restrictions/Additional Instructions: Thank you for trusting us with your care today As discussed, your EKG looks good you had 2 good sets of heart lab work. There are signs of urinary tract infection, so I sent a prescription of an antibiotic to [facility]. Please take this with probiotic or yogurt to help prevent antibiotic associated diarrhea. We are doing a urine culture and will call you if we need to change your antibiotics As discussed I think you would benefit from further inquiry into your heart function. Please follow-up with primary care provider in the next few days. As discussed, you have elected to go home and follow-up as an outpatient. However in the meantime if you have any acute concerns please come back to the emergency department including concern of heart attack or stroke. Prescriptions: New nitrofurantoin monohyd/m-cryst [Macrobid] 100 mg capsule 100 mg PO Q12H 7 Days Qty: 14 RF: 0 No Action [FISHOIL] 1,000 mg PO Q DAY Qty: 0 RF: 0 multivitamin [Multiple Vitamins] 1 EACH tablet 1 tab PO DAILY Qty: 0 RF: 0 warfarin [Coumadin] 5 mg tablet 5 mg PO SEE INSTRUCTIONS Qty: 150 RF: 3 carvedilol [Coreg] 12.5 mg tablet 12.5 mg PO BID Qty: 180 RF: 3 oxybutynin chloride 5 mg tablet extended release 24hr 5 mg PO DAILY Qty: 30 RF: 6 losartan 25 mg tablet 25 mg PO DAILY Qty: 90 RF: 3 calcium citrate 250 mg calcium tablet 500 mg PO BID RF: 0 cholecalciferol (vitamin D3) 2,000 unit capsule 2,000 unit PO BID RF: 0 fluticasone propionate 50 mcg/actuation spray,suspension 2 spray NASAL DAILY PRNRF: 0 furosemide [Lasix] 20 mg tablet 20 mg PO EVEROTHDAY PRNRF: 0 estradiol 0.01 % (0.1 mg/gram) cream 1 gram VAG .HS RF: 0 clobetasol TOP RF: 0 Referrals: Rochelle Ren MD [Primary Care Provider] - <Mirella Sauceda MD - Last Filed: 02/10/20 07:46> Cosign ED Attending Cosignature Attestation: I was immediately available in the department for consultation throughout this patient's visit. I agree with documentation as above. Mirella Sauceda MD
== END 2020-02-05 19:04 | disposition home or self-care (01) ==
PROVIDERS: Emergency Medicine; Emergency Provider Nurse Practitioner Family; PCP Student in an Organized Health Care Education/Training Program
DX: N39.0 Urinary tract infection, site not specified (principal); R07.9 Chest pain, unspecified
CPT/HCPCS: 36415; 71045; 80053; 81003; 81015; 82550; 83690; 83880; 84484; 85025; 85610; 85730; 87077; 87086; 87186; 93005; 99283; 99284

== ENCOUNTER → 2020-02-25 15:47 | Outpatient (CLI) | payer OTHER, SELFPAY ==
--- NOTE | 2020-02-25 | DI.RAD.S_ITS ---
PROCEDURE: XR HIP W PEL IF DONE LT MIN 4V INDICATIONS: Left Hip Pain TECHNIQUE: AP pelvis with lateral view(s) of the left and right hip(s). COMPARISON: [facility], , HIP 2V RIGHT, 04/04/2013, 14:46. FINDINGS: Bones: No fracture. Diffuse osteopenia. Lower lumbar spondylosis and facet disease. Right hip arthroplasty in expected alignment. No evidence of hardware loosening. Lateral sideplate screw and screw fixation of the proximal left femur. Expected alignment. Mild to moderate left hip joint degeneration Soft tissues: Scattered vascular calcifications. IMPRESSION: Mild to moderate left hip joint degeneration. Status post right hip arthroplasty in expected alignment. Dictated by: Esteban Lopez M.D. on 02/25/2020 at 17:23 Approved by: Esteban Lopez M.D. on 02/25/2020 at 17:25
== END ==
PROVIDERS: PCP Student in an Organized Health Care Education/Training Program; Referring Provider Student in an Organized Health Care Education/Training Program; Visit Provider Student in an Organized Health Care Education/Training Program
DX: M25.552 Pain in left hip (principal); M16.12 Unilateral primary osteoarthritis, left hip; Z96.641 Presence of right artificial hip joint
CPT/HCPCS: 73522

== ENCOUNTER → 2020-03-12 11:25 | Outpatient (CLI) | payer OTHER, SELFPAY ==
[2020-03-14 02:27] LABS: COVID19 Sendout Not Detected (Not Detect)
== END ==
PROVIDERS: PCP Student in an Organized Health Care Education/Training Program; Visit Provider Nurse Practitioner
DX: Z11.59 Encounter for screening for other viral diseases (principal)
CPT/HCPCS: 87635

== ENCOUNTER → 2020-03-15 09:33 | Outpatient (CLI) | payer OTHER, SELFPAY ==
--- NOTE | 2020-03-15 20:08 | DI.NM.S_ITS ---
DATE OF SERVICE: 03/15/2020 PROCEDURE: Pharmacological perfusion study. INDICATIONS: Chest pain with underlying hypertension, hyperlipidemia. RADIOPHARMACEUTICAL: 25.4 millicurie technetium-99m Myoview IV was injected at stress and 9.8 millicurie technetium-99m Myoview IV was injected at rest. CARDIAC STRESS: The patient underwent IV Lexiscan perfusion study under the supervision of an attending staff using standard Lexiscan protocol. The patient remained hemodynamically stable. No chest pain, but felt significant shortness of breath. No reversal agent needed. Baseline rhythm appears to be atrial fibrillation with controlled ventricular rate. During stress, there were intermittent PVCs. No obvious ischemic changes. RAW DATA: Significant breast shadow was seen. Patient's weight is 211 pounds. GATED STUDY: Resting LV ejection fraction 50 and stress LV ejection fraction 58 percent. No obvious wall motion abnormalities. TID ratio 0.93, which is within normal limits. Resting end-diastolic volume 169 mL. Lung/heart ratio 0.38, which is within normal limits. MYOCARDIAL PERFUSION: Stress supine images revealed a small size, mildly decreased perfusion of distal anterior wall, distal anteroseptum, as well as anteroapex. Resting supine images revealed moderate size, mildly decreased perfusion of anterior wall, distal anteroseptum, as well as anteroapex. During stress prone images, there was significant improvement in above-mentioned perfusion defects. No obvious reversible ischemia. CONCLUSIONS: 1. No obvious reversible ischemia. 2. There is significant breast tissue attenuation artifact, which got improved during prone images. Large breast shadow was seen during raw images. There are no obvious wall motion abnormalities in the anterior wall and left anterior descending distribution, hence, most likely we are dealing with tissue attenuation artifact. Baseline rhythm is AFib. Discussed the findings with Dr. Ren. Ana M Gale - HARESH/petr/mary ellen doc#: [id number]/job#: [id number] dd: 03/15/2020 17:02:00 dt: 03/15/2020 20:01:00 DICTATING MD/COPIES TO: Juancarlos Morgan MD COPIES MNE: HARSH;
== END ==
PROVIDERS: PCP Student in an Organized Health Care Education/Training Program; Referring Provider Student in an Organized Health Care Education/Training Program; Visit Provider Student in an Organized Health Care Education/Training Program
DX: I20.9 Angina pectoris, unspecified (principal); I10 Essential (primary) hypertension; E78.5 Hyperlipidemia, unspecified
CPT/HCPCS: 78452; 93017; A9502; J2785

== ENCOUNTER → 2020-03-24 14:51 | Outpatient (CLI) | payer OTHER, SELFPAY ==
--- NOTE | 2020-03-24 | DI.ECHO.S_ITS ---
[facility]+ : : [address] [place] [address] : : : : [id number] : : : : Phone: [phone]+ Echocardiogram Report + + :Name: AILYN BARGER Study Date: 03/24/2020 Height: 73 in : :[facility] Weight: 214 lb : : Gender: Female BSA: 2.2 m2 : :: 1940 Age: 79 yrs BP: 152/79 mmHg: :Reason For Study: ANGINA : :Ordering Physician: MELVIN, : :REMINGTON Performed By: Enedina Loredo : :Referring: REMINGTON CHARLES : + + Interpretation Summary Afib with controlled rate. Normal LV size and wall thickness. There is mild global hypokinesis. EF is 45- 50% Severe biatrial enlargement. There is PFO present with left to right shunting. Mitral valve leaflets are normal; moderate mitral regurgitation. Tricuspid valve leaflets are normal; moderate tricuspid regurgitation. Estimated PA systolic pressure is 39 mm Hg assuming RA pressure of 8 mm Hg. Compared to prior study 01/16/2018 LV is less dynamic. EF is down from 50-55% to 45-50%. Procedure: A two-dimensional transthoracic echocardiogram with color flow and Doppler was performed. The study quality was technically adequate. Comparison is made with the echocardiogram of 01/16/2018. The patient was in atrial fibrillation with heart rates between 64-82 bpm during the exam. Left Ventricle: The estimated left ventricular end diastolic volume is 139 ml. The ejection fraction is estimated to be 45-50%. Diastolic function could not be accurately assessed due to atrial fibrillation. Right Ventricle: The right ventricle is mildly dilated. The right ventricular systolic function is normal. Atria: Both atria are severely dilated. A secundum type atrial septal defect is present. Doppler evidence suggests a right to left interatrial shunt. Mitral Valve: The mitral valve leaflets appear mildly thickened, but open well. There is moderate mitral regurgitation. Aortic Valve: The aortic valve is trileaflet. The aortic valve opens well. No aortic regurgitation is present. Tricuspid Valve: The tricuspid valve leaflets are thin and pliable. There is moderate tricuspid regurgitation. The right ventricular systolic pressure is estimated to be at least 39 mmHg based on an estimated right atrial pressure of 8 mm Hg. Pulmonic Valve: The pulmonic valve is not well seen, but is grossly normal. There is mild pulmonic regurgitation. Great Vessels: The aortic root is normal size. The ascending aorta is at the upper limits of normal in size. The IVC is dilated (diameter is greater than 2.1 cm) yet it collapses greater than 50% with a sniff. This suggests a right atrial pressure of 8 mm Hg. Pericardium/ Pleura There is no pericardial effusion. There is no pleural effusion. MMode/2D Measurements & Calculations LVIDd: 5.7 cm LVOT diam: 2.3 cm LVIDs: 4.1 cm Ao root diam: 3.4 cm FS: 28.6 % asc Aorta Diam: 3.3 cm EPSS: 1.3 cm IVSd: 0.99 cm LVPWd: 1.1 cm LV langford. diameter/BSA (cm/m^2): 2.6 LV sys. diameter/BSA (cm/m^2): 1.8 LA A2 area: 50.8 cm2 RA long axis: 8.6 cm LA A4 area: 49.5 cm2 RA area: 45.5 cm2 LA length (vol): 8.6 cm RA vol: 204.9 ml LA vol: 249.3 ml RA : 92.5 ml/m2 LA vol index: 112.6 ml/m2 IVC diam: 2.1 cm RVD1 (basal): 4.4 cm TAPSE: 2.6 cm Doppler Measurements & Calculations Ao V2 max: 119.1 cm/sec LVOT Max Ivan: 95.8 cm/sec Ao V2 mean: 87.6 cm/sec LV V1 max P.7 mmHg Ao max P.7 mmHg LV V1 VTI: 20.1 cm Ao mean P.4 mmHg TANNER(I,D): 3.3 cm2 Ao V2 VTI: 25.9 cm TANNER(V,D): 3.4 cm2 sev ratio: 0.78 TANNER indexed to BSA (cm^2/m^2): 1.5 MV E max ivan: 93.0 cm/sec TR max ivan: 277.8 cm/sec MV A max ivan: 0.98 cm/sec TR max P.9 mmHg MV E/A: 95.2 PA V2 max: 46.9 cm/sec Med Peak E' Ivan: 8.2 cm/sec PA V2 mean: 35.3 cm/sec E/E' med: 11.3 PA mean P.55 mmHg Lat Peak E' Ivan: 12.3 cm/sec PA pr(Accel): 39.6 mmHg E/E' lat: 7.6 E/e' average: 9.4 MV dec time: 0.23 sec SV(OT): 86.1 ml Electronically signed by: Ada Mendoza M.D. on Reading Physician:03/24/2020 06:50 PM
== END ==
PROVIDERS: PCP Student in an Organized Health Care Education/Training Program; Referring Provider Student in an Organized Health Care Education/Training Program; Visit Provider Student in an Organized Health Care Education/Training Program
DX: I08.1 Rheumatic disorders of both mitral and tricuspid valves (principal); I20.9 Angina pectoris, unspecified; Q21.1 Atrial septal defect
CPT/HCPCS: 93306

== ENCOUNTER → 2020-05-11 10:11 | Outpatient (CLI) | payer OTHER, SELFPAY | PROVIDERS: PCP Student in an Organized Health Care Education/Training Program; Visit Provider Nurse Practitioner | DX: N34.3 Urethral syndrome, unspecified (principal) | CPT/HCPCS: 87077; 87086; 87186 ==

== ENCOUNTER → 2020-08-23 14:25 | Outpatient (CLI) | payer OTHER, SELFPAY ==
[2020-08-23 14:56] LABS: COVID19 -Nasal RAPID Negative (Negative)
== END ==
PROVIDERS: PCP Student in an Organized Health Care Education/Training Program; Visit Provider Student in an Organized Health Care Education/Training Program
DX: Z20.822 Contact with and (suspected) exposure to COVID-19 (principal)
CPT/HCPCS: 87635

== ENCOUNTER → 2020-08-30 16:56 | Outpatient (CLI) | payer OTHER, SELFPAY ==
--- NOTE | 2020-08-30 17:01 | DI.RAD.S_ITS ---
PROCEDURE: XR KUB INDICATIONS: HEMATURIA TECHNIQUE: One view of the abdomen acquired. COMPARISON: None. FINDINGS: Surgical changes and devices: None. Bowel: Bowel gas pattern is normal. Soft tissues: No suspicious abdominal calcifications. Visualized solid organ contours appear normal in size. Bones: No suspicious bony lesions. IMPRESSION: A urinary tract stone is not seen. Incidental note is made of convex rightward scoliosis at the thoracolumbar junction and prior right total hip arthroplasty with a dynamic hip screw on the left. Dictated by: Bandar Prado M.D. on 08/31/2020 at 9:39 Approved by: Bandar Prado M.D. on 08/31/2020 at 9:39
== END ==
PROVIDERS: PCP Student in an Organized Health Care Education/Training Program; Referring Provider Student in an Organized Health Care Education/Training Program; Visit Provider Student in an Organized Health Care Education/Training Program
DX: R31.9 Hematuria, unspecified (principal); M41.85 Other forms of scoliosis, thoracolumbar region; Z96.641 Presence of right artificial hip joint
CPT/HCPCS: 74018

== ENCOUNTER → 2020-10-11 15:30 | Outpatient (CLI) | payer OTHER, SELFPAY ==
[2020-10-11 16:23] LABS: BUN Creatinine Ratio 26.1 (6-22); Blood Urea Nitrogen 18 mg/dL (7-17); Calcium 9.7 mg/dL (8.4-10.2); Carbon Dioxide 26 mmol/L (22-32); Chloride 104 mmol/L (98-107); Estimated Glomerular Filt Rate > 60.0 mL/min (>60); Glucose 104 mg/dL (80-110); HEMOLYSIS < 15 (0-50); Potassium 4.3 mmol/L (3.4-5.1); Sodium 133 mmol/L (137-145)
== END ==
PROVIDERS: PCP Student in an Organized Health Care Education/Training Program; Referring Provider Specialist; Visit Provider Specialist
DX: Z01.812 Encounter for preprocedural laboratory examination (principal)
CPT/HCPCS: 36415; 80048

== ENCOUNTER → 2020-10-13 14:15 | Outpatient (CLI) | payer OTHER, SELFPAY ==
--- NOTE | 2020-10-13 14:16 | DI.CT.S_ITS ---
PROCEDURE: CT ABDOMEN PELVIS WO/W CON INDICATIONS: Hx of UTI TECHNIQUE: Optional 5 mm thick noncontrast images acquired from the diaphragm to the symphysis pubis. After the administration of intravenous contrast, 5 mm thick images acquired from the diaphragm to the symphysis pubis after a 10-minute delay. 2 mm thick coronal and sagittal reformats were then performed of the kidneys and ureters. For radiation dose reduction, the following was used: automated exposure control, adjustment of mA and/or kV according to patient size. COMPARISON: [facility], CT, IVP (ABD & PEL WWO CONTRAST), 02/15/2016, 10:55. [facility], CR, XR KUB, 08/30/2020, 17:06. FINDINGS: Image quality: Excellent. Lung bases: Mild bibasilar atelectasis. No pleural effusion. Heart size is enlarged. Urinary system: Both kidneys are normal in size, without hydronephrosis or nephrolithiasis on pre-contrast images. No perinephric fat stranding. There is normal bilateral renal enhancement. Renal calyces appear normal in morphology when filled with contrast. Opacified portions of both ureters demonstrate normal caliber. Distal right ureter is not well seen. Mid and distal left ureter is not well seen. Bladder wall thickness is normal. No calcified bladder stones. Other solid organs: Liver is normal in size and enhancement. Gallbladder is unremarkable. Biliary system is non dilated. Pancreas enhances normally. Spleen is normal in size and enhancement. No adrenal nodules. Peritoneum and bowel: Bowel loops demonstrate normal wall thickness and caliber. No free fluid or air. Nodes and vessels: No retroperitoneal or mesenteric adenopathy by size criteria. Aorta and inferior vena cava are normal in size. Circumferential calcified atherosclerotic plaque. Abdominal wall: No ventral hernias. Pelvis: No pathologic free pelvic fluid. Uterus is absent. Mildly prominent right inguinal node measuring 1.5 cm short axis diameter, (3/168). Prominent left pelvic veins. Beam hardening artifact limits evaluation. Bones: No suspicious bony lesions. Heterotopic calcification adjacent to the left iliac wing. Right hip arthroplasty. Left dynamic hip screw. Mild height loss at L1, unchanged. Scoliosis. IMPRESSION: 1. No hydronephrosis. No hydroureter seen. No kidney stones. 2. No upper urinary tract filling defect is identified within the visualized portions. The distal ureters are not well seen bilaterally. 3. Cardiomegaly. 4. Mildly prominent right inguinal node with a short axis diameter of 1.5 cm. Dictated by: Arpit Ibarra M.D. on 10/13/2020 at 18:35 Approved by: Arpit Ibarra M.D. on 10/13/2020 at 18:43
== END ==
PROVIDERS: PCP Student in an Organized Health Care Education/Training Program; Referring Provider Specialist; Visit Provider Specialist
DX: N39.0 Urinary tract infection, site not specified (principal); R31.9 Hematuria, unspecified; Z87.440 Personal history of urinary (tract) infections
CPT/HCPCS: 74178; Q9967

== ENCOUNTER → 2020-11-03 12:42 | Outpatient (CLI) | payer OTHER, SELFPAY ==
--- NOTE | 2020-11-03 | DI.RAD.S_ITS ---
PROCEDURE: XR DEXA AXIAL SKELETON INDICATIONS: Age-related osteoporosis COMPARISON: [facility], CR, XR DEXA AXIAL SKELETON, 07/07/2018, 14:03. FINDINGS: This blank DEXA report has been sent in error by the PACS system. The correct and complete report will be forthcoming in 1-2 days. Thank you for your patience and understanding. Dictated by: Edith Figueroa MD, PhD on 11/03/2020 at 15:10 Approved by: Edith Figueroa MD, PhD on 11/03/2020 at 15:11
== END ==
PROVIDERS: PCP Student in an Organized Health Care Education/Training Program; Referring Provider Student in an Organized Health Care Education/Training Program; Visit Provider Student in an Organized Health Care Education/Training Program
DX: M81.0 Age-related osteoporosis without current pathological fracture (principal); Z78.0 Asymptomatic menopausal state; Z82.62 Family history of osteoporosis; Z87.891 Personal history of nicotine dependence
CPT/HCPCS: 77080; 77081

== ENCOUNTER → 2020-11-28 15:36 | Outpatient (CLI) | payer OTHER, SELFPAY ==
[2020-11-28 16:56] LABS: COVID19 -Nasal RAPID Negative (Negative)
== END ==
PROVIDERS: PCP Student in an Organized Health Care Education/Training Program; Visit Provider Obstetrics & Gynecology
DX: Z01.812 Encounter for preprocedural laboratory examination (principal); Z20.822 Contact with and (suspected) exposure to COVID-19
CPT/HCPCS: 87635

== ENCOUNTER 2020-11-29 08:43 | Day surgery (SDC) | payer OTHER, SELFPAY ==
[2020-11-23 09:38] VITALS: BMI 29.8
[2020-11-29] VITALS (7 sets, daily range): BP systolic 102–126; BP diastolic 54–74; PULSE 58–73; RESP 9–16; TEMP 36.1–36.9; O2SAT 92–96; BMI 28.5
--- NOTE | 2020-11-29 | PATH_ITS ---
[facility] Accession Number: [id number] . 01 Material submitted: . vagina - LEFT VAGINAL WALL MASS . 01 Clinical history: . BX OF VAGINAL MASS . 02 Diagnosis: Left Vaginal Wall Mass: Benign squamous papilloma (9 mm). Negative for dysplasia or malignancy. MRV 12/02/2020 1312 Local . 02 Electronically signed: . Shreya Carvalho MD, Pathologist NPI- [id number] . 01 Gross description: . LEFT VAGINAL WALL MASS: Received in formalin is 1 fragment(s) of de anda, soft tissue measuring 0.9 x 0.7 x 0.4 cm which is inked, bisected and submitted entirely in 1 cassette(s) /TANNER 11/30/2020 0914 Local . 02 Pathologist provided ICD-10: N89.8 . 02 CPT . 448431 Performed at: 01 [facility] [address] [facility], [place], [place] [id number] MD Thomas Zhu MD Phone: [phone] Performed at: 02 [facility] [address] [place], [place] [id number] MD Em Medley MD Phone: [phone]
[2020-11-29] MEDS: LACTATED RINGERS 1,000 ML 100 ML IV (09:31)
--- NOTE | 2020-11-29 11:10 | SUR.OPER ---
Lithotomy on padded OR bed, head on pillow, arms secured on padded arm boards at <90 degrees abduction. Legs secured in padded yellow fins stirrups.
--- NOTE | 2020-11-29 11:11 | PM.HP.1 ---
History of Present Illness History of Present Illness Date Patient Seen: 11/29/20 Time Patient Seen: 11:11 Chief complaint: BX OF VAGINAL MASS Narrative: Patient is a 80-year-old 3 para 2 with a left vaginal wall mass. Patient has significant lichen sclerosis with agglutination of the labia minora which interferes with voiding normally. 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) Fractures (10/08/07) Hayfever (1959) Heart failure, systolic History of UTI Lichen sclerosus et atrophicus (2011) Measles (1949) Microscopic hematuria Mitral stenosis Osteoarthritis (1996) Osteopenia Osteoporosis Postmenopausal atrophic vaginitis Valvular heart disease Surgical History (Updated 11/23/20 @ 10:26 by Lindsey Pulido RN) Anesthesia History of carpal tunnel repair (1979) History of carpal tunnel repair (03/23/04) History of cataract removal with insertion of prosthetic lens (01/02/12) History of cataract removal with insertion of prosthetic lens (12/19/11) History of hip replacement (05/08/10) History of hip surgery (05/16/08) History of hip surgery (10/08/07) History of incision and drainage (10/03/18) History of knee replacement (02/11/12) History of knee replacement (07/19/08) History of nasal surgery (10/03/11) History of orthopedic surgery (10/17/09) Status post vaginal hysterectomy (1974) Family & Social History Family History Father Family history of IL (myocardial infarction) Heart disease Congestive heart failure Mother Cancer Myeloma Necrotizing fasciitis Brother MVA (motor vehicle accident) Sister No problems noted. Daughter No problems noted. Son No problems noted. Social History: household members spouse Tobacco & Substance use: Smoking Status Former smoker alcohol intake current alcohol intake frequency a few times a week Substance Use Type does not use Meds Home Medications and Allergies Home Medications Medication Instructions Recorded Confirmed Type omega-3 fatty acids-vitamin E 1 cap PO DAILY #0 01/30/12 11/29/20 History 1,000 mg capsule multivitamin (Multiple Vitamins) 1 tab PO DAILY #0 08/05/17 11/23/20 History calcium citrate 500 mg PO BID tab 09/25/18 11/29/20 History cholecalciferol (vitamin D3) 50 2,000 unit PO BID cap 09/25/18 11/29/20 History mcg (2,000 unit) capsule fluticasone propionate 50 2 spray NASAL DAILY PRN gram 11/10/18 11/23/20 History mcg/actuation nasal spray,suspension furosemide 20 mg tablet (Lasix) 20 mg PO PRN PRN tab 11/10/18 11/29/20 History carvedilol 12.5 mg tablet (Coreg) 12.5 mg PO BID #180 tab 07/14/19 11/29/20 Rx clobetasol TOP 09/23/19 11/03/20 History losartan 25 mg tablet 25 mg PO DAILY #90 tab 11/24/19 11/29/20 Rx betamethasone dipropionate 0.05 % 1 applic TOPICAL DAILY PRN 08/19/20 11/23/20 History topical cream estradiol See Rx Instructions .ROUTE 09/30/20 11/29/20 Rx .COMPLEX #42.5 gram warfarin 5 mg tablet 7.5 mg PO DAILY 11/29/20 11/29/20 History Allergies Allergy/AdvReac Type Severity Reaction Status Date / Time acetaminophen Allergy Mild UPSET Verified 11/03/20 14:47 STOMACH digoxin Allergy Mild SWELLING Verified 11/03/20 14:47 LOWER EXTRMITIES hydromorphone Allergy Mild N/V Verified 11/03/20 14:47 adhesive Allergy Unknown SENSITVE Verified 11/03/20 14:47 TO TAPE latex Allergy Rash Verified 11/29/20 09:07 phenytoin Allergy Verified 11/03/20 14:47 ibuprofen AdvReac Mild UNABLE TO Verified 11/03/20 14:47 TAKE DUE TO COUMADIN meperidine AdvReac Mild GI UPSET Verified 11/03/20 14:47 WITH VOMITING xylitol AdvReac Mild diarrhea Verified 11/03/20 14:47 and upset stomach Exam Vital Signs (past 8 hours): - 11/29/20 09:12 Temperature 97 F L Pulse Rate 69 Respiratory Rate 16 Blood Pressure 126/68 Pulse Oximetry 96 Oxygen Delivery Method Room Air Oxygen Flow Rate 0 Narrative Exam Narrative: HEENT: No thyromegaly, no anterior cervical or supraclavicular lymphadenopathy. Lungs:Clear to auscultation bilaterally, no wheezes. Cardiovascular: Regular rate and rhythm, no murmurs, rubs, or gallops. Abdomen: No scars. No hepatosplenomegaly. No masses palpable. External genitalia: Significant atrophy. Agglutination of the labia minora at the level of the clitoris. Vagina: Left vaginal wall mass. Measures 2 cm x 2 cm approximately midway back from the introitus to the vaginal cuff. Cervix: Absent Bimanual exam: Uterus absent. No adnexal masses or tenderness Assessment & Plan Assessment & Plan narrative: Assessment: 80-year-old 3 para 2 with a left vaginal wall mass and agglutination of the labia minora interfering with voiding Plan: Separation of the labia minora Biopsy of the left vaginal wall mass The risks, benefits, and alternatives to the procedure were explained to the patient. The risks including bleeding and infection. She understands these risks and agrees to proceed. A full par Q was held and consent form was signed. COVID-19 COVID-19 status: Negative Result date/Date tested (Pos, Neg/Pending): 11/28/20 Time Spent With Patient Time with patient: 15-24 minutes
--- NOTE | 2020-11-29 11:15 | PM.PREOP ---
Pre-operative Note COVID-19 COVID-19 status: Negative Result date/Date tested (Pos, Neg/Pending): 11/28/20 Interval Note History & Physical reviewed/Exam performed by Physician: Yes Changes to H&P: No H&P completed within 30 days and has changed as indicated here:: 11/28/20
[2020-11-29] MEDS: BUPIVACAINE 0.5% (PF) VIAL 30 ML INJ (12:24)
[2020-11-29] MEDS: EPINEPHrine 1 MG/ML 0.15 MG INJ (12:25)
--- NOTE | 2020-11-29 12:50 | PM.GYNOP.1 ---
Operative Date/Time/Diagnoses Date of procedure: 11/29/20 Time of procedure: 12:50 Pre-op diagnosis: Left vaginal wall lesion Agglutination of the labia minora Post-op diagnosis: same Procedure & Clinicians Procedure: Procedures Operation Date: 11/29/20 09:45 Actual Procedure Side Surgeon p BX of Vaginal wall Mass, separation of labial agglutination Jody Espinosa MD Indications: Left vaginal wall lesion Labia minora agglutination Surgeon: Jody Espinosa Anesthesia Type: General (LMA) Operative Notes Findings: On the left lateral vaginal wall there is a bright red lesion The labia minora are agglutinated at the level of the clitoris extending down to the urethral meatus Closure Type: primary Specimen(s): other (Left vaginal wall lesion) Estimated blood loss (mL): 10 Blood products transfused: none Procedure in detail: After informed consent was obtained, the patient was taken to the operating room where she was placed in the dorsal supine position. After adequate LMA general anesthesia was achieved, she was placed in the dorsal lithotomy position, and prepped and draped in the usual sterile fashion. A time-out was performed. A weighted speculum was placed into the vagina. On the left lateral vaginal wall approximately 3 cm back there was a bright red lesion. 5 cc of 0.25% Marcaine with epinephrine were injected below the lesion. Using Metzenbaum scissors, a 4 mm by 4 mm biopsy was taken. 4-0 chromic in simple interrupted sutures was used for hemostasis. The labia minora were agglutinated from the clitoris down to the urethral meatus. Using a # 15 blade, the labia were with gentle traction on either side. The Bovie was used superficially for hemostasis. Pressure was held for hemostasis. Sponge, lap, and instrument counts were correct x2. The patient tolerated the procedure well, and was taken to PACU in stable condition. Complications: none Post-operative Condition: stable Disposition: PACU Plan for aftercare: Home after recovery
== END 2020-11-29 13:53 | disposition home or self-care (01) ==
PROVIDERS: PCP Student in an Organized Health Care Education/Training Program; Referring Provider Obstetrics & Gynecology; Visit Provider Obstetrics & Gynecology
PROC: (CPT 56620; principal; 2020-11-29 09:45)
DX: Q52.5 Fusion of labia (principal); N90.4 Leukoplakia of vulva; R39.198 Other difficulties with micturition; D36.7 Benign neoplasm of other specified sites
CPT/HCPCS: 56620; 57105; 85610; J0171; J2405; J2704; J3010

== ENCOUNTER → 2020-12-14 13:37 | Outpatient (CLI) | payer OTHER, SELFPAY | PROVIDERS: PCP Student in an Organized Health Care Education/Training Program; Referring Provider Specialist; Visit Provider Specialist | DX: N39.0 Urinary tract infection, site not specified (principal); R31.29 Other microscopic hematuria; N95.2 Postmenopausal atrophic vaginitis; Z87.440 Personal history of urinary (tract) infections | CPT/HCPCS: 51798; 52000; 81002; 87077; 87086; 87186; 99214 ==

== ENCOUNTER → 2021-01-21 12:31 | Outpatient (CLI) | payer OTHER, SELFPAY ==
[2021-01-21 13:01] LABS: Bacteria Urine None Seen
[2021-01-21 14:21] LABS: Appearance Urine UA CLEAR; Bilirubin Urine UA NEGATIVE (NEGATIVE); Color Urine UA YELLOW; Glucose Urine UA NEGATIVE (Negative); Ketones Urine UA NEGATIVE (NEGATIVE); Leukocyte Esterase Urine UA TRACE (NEGATIVE); Nitrite Urine UA NEGATIVE (Negative); Occult Blood Urine UA 2+ (Negative); Protein Urine UA NEGATIVE (Negative); Specific Gravity Urine UA 1.025 (1.000-1.035); Urobilinogen Urine UA 0.2 E.U./dL (0.2)
[2021-01-21 14:26] LABS: pH Urine UA 5.5 (4.5-8.0)
[2021-01-21 14:27] LABS: Culture Indicated Urine Specimen Cultured; RBC Urine 1-5/HPF (0-5/HPF); Squamous Epithelial Cell Urine 0-1 /HPF (0-5/HPF); WBC Urine 5-10/HPF (0-5/HPF)
[2021-01-21 14:29] LABS: BUN Creatinine Ratio 29.7 (6-22); Blood Urea Nitrogen 19 mg/dL (7-17); Calcium 9.2 mg/dL (8.4-10.2); Carbon Dioxide 26 mmol/L (22-32); Chloride 105 mmol/L (98-107); Estimated Glomerular Filt Rate > 60.0 mL/min (>60); Glucose 109 mg/dL (80-110); HEMOLYSIS < 15 (0-50); Potassium 4.3 mmol/L (3.4-5.1); Sodium 136 mmol/L (137-145)
[2021-01-21 15:06] LABS: Hepatitis B Surface Antigen NEGATIVE s/c (NEGATIVE)
[2021-01-21 15:29] LABS: Hep C Virus Ab w/Reflex Quant NEGATIVE s/c (NEGATIVE)
[2021-01-21 15:45] LABS: Creatinine Urine Random 119.8 mg/dL
[2021-01-21 15:47] LABS: Protein (Total) Urine Random < 5 mg/dL (0-12); Protein Creatinine Ratio Urine 0.04 GRAM/24H
[2021-01-23 04:45] LABS: Hepatitis B Core Antibody Negative (Negative)
[2021-01-23 07:29] LABS: Complement C3 110 mg/dL (82-167)
[2021-01-23 09:41] LABS: Hepatitis B Surf Ab Qualitativ Reactive (.)
[2021-01-24 16:36] LABS: ANA Screen, IFA Negative (.)
[2021-01-24 17:31] LABS: DNA (DS) Antibody 1 IU/mL (0-9)
[2021-01-25 16:16] LABS: Cytoplasmic C-ANCA <1:20 titer (Neg:<1:20); Perinuclear P-ANCA <1:20 titer (Neg:<1:20)
== END ==
PROVIDERS: PCP Student in an Organized Health Care Education/Training Program; Referring Provider Student in an Organized Health Care Education/Training Program; Visit Provider Student in an Organized Health Care Education/Training Program
DX: L93.2 Other local lupus erythematosus (principal); M31.30 Wegener's granulomatosis without renal involvement; M32.10 Systemic lupus erythematosus, organ or system involvement unspecified; N00.9 Acute nephritic syndrome with unspecified morphologic changes; N05.9 Unspecified nephritic syndrome with unspecified morphologic changes; D89.89 Other specified disorders involving the immune mechanism, not elsewhere classified; B19.10 Unspecified viral hepatitis B without hepatic coma; N30.00 Acute cystitis without hematuria; R80.9 Proteinuria, unspecified
CPT/HCPCS: 36415; 80048; 81001; 82570; 83516; 84156; 86038; 86160; 86225; 86256; 86704; 86706; 86803; 87077; 87086; 87186; 87340

== ENCOUNTER → 2021-02-04 14:48 | Outpatient (CLI) | payer OTHER, SELFPAY ==
--- NOTE | 2021-02-04 | DI.MG.S_ITS ---
BILATERAL DIGITAL SCREENING MAMMOGRAM 3D/2D WITH CAD: 02/04/2021 CLINICAL: Routine screening. Comparison is made to exams dated: 12/24/2018 mammogram, 12/14/2016 mammogram, and 08/31/2014 mammogram - [facility]. The tissue of both breasts is extremely dense, which lowers the sensitivity of mammography. Current study was also evaluated with a Computer Aided Detection (CAD) system. There are benign calcifications in both breasts. No significant masses, calcifications, or other findings are seen in either breast. There has been no significant interval change. IMPRESSION: BENIGN There is no mammographic evidence of malignancy. A 1 year screening mammogram is recommended. This exam was interpreted at Station ID: [id number]. NOTE: For mammograms, a report in lay terms will be sent to the patient. Approximately 15% of breast malignancies will not be visualized mammographically. In the management of a palpable breast mass, a negative mammogram must not discourage biopsy of a clinically suspicious lesion. Electronically Signed By: Thomas hwang/aaron:02/06/2021 07:53:52 letter sent: Normal Exam ACR BI-RADS Category 2: Benign Finding(s) 3342F
== END ==
PROVIDERS: PCP Student in an Organized Health Care Education/Training Program; Referring Provider Student in an Organized Health Care Education/Training Program; Visit Provider Student in an Organized Health Care Education/Training Program
DX: Z12.31 Encounter for screening mammogram for malignant neoplasm of breast (principal)
CPT/HCPCS: 77063; 77067

== ENCOUNTER → 2021-06-01 10:38 | Outpatient (CLI) | payer MEDICARE, SELFPAY | PROVIDERS: Family Provider Student in an Organized Health Care Education/Training Program; PCP Student in an Organized Health Care Education/Training Program; Referring Provider Specialist; Visit Provider Specialist | DX: N39.46 Mixed incontinence (principal); N95.2 Postmenopausal atrophic vaginitis; Z87.440 Personal history of urinary (tract) infections | CPT/HCPCS: 81002; 87077; 87086; 87186; 99214 ==

== ENCOUNTER → 2021-06-23 09:45 | Outpatient (CLI) | payer MEDICARE, SELFPAY ==
[2021-06-23 09:57] LABS: Appearance Urine UA SL CLOUDY; Bilirubin Urine UA NEGATIVE (NEGATIVE); Color Urine UA YELLOW; Glucose Urine UA NEGATIVE (Negative); Ketones Urine UA NEGATIVE (NEGATIVE); Leukocyte Esterase Urine UA NEGATIVE (NEGATIVE); Nitrite Urine UA NEGATIVE (Negative); Occult Blood Urine UA 3+ (Negative); Protein Urine UA TRACE (Negative); Urobilinogen Urine UA 0.2 E.U./dL (0.2)
[2021-06-23 10:10] LABS: Bacteria Urine Few (2-10); RBC Urine 1-5/HPF (0-5/HPF); Squamous Epithelial Cell Urine 5-10 /HPF (0-5/HPF); WBC Urine 1-5/HPF (0-5/HPF)
[2021-06-23 10:11] LABS: Culture Indicated Urine Cult Not Indicated
== END ==
PROVIDERS: Family Provider Student in an Organized Health Care Education/Training Program; PCP Student in an Organized Health Care Education/Training Program; Visit Provider Specialist
DX: N39.0 Urinary tract infection, site not specified (principal); N39.46 Mixed incontinence
CPT/HCPCS: 81001

== ENCOUNTER → 2021-07-06 15:39 | Outpatient (CLI) | payer MEDICARE, SELFPAY | PROVIDERS: Family Provider Student in an Organized Health Care Education/Training Program; PCP Student in an Organized Health Care Education/Training Program; Referring Provider Specialist; Visit Provider Specialist | DX: R30.0 Dysuria (principal) | CPT/HCPCS: 36415; 87077; 87086; 87186 ==

== ENCOUNTER → 2021-08-03 14:32 | Outpatient (CLI) | payer MEDICARE, SELFPAY ==
[2021-08-03 14:37] LABS: Appearance Urine UA CLEAR; Bilirubin Urine UA NEGATIVE (NEGATIVE); Color Urine UA YELLOW; Glucose Urine UA NEGATIVE (Negative); Ketones Urine UA NEGATIVE (NEGATIVE); Leukocyte Esterase Urine UA NEGATIVE (NEGATIVE); Nitrite Urine UA NEGATIVE (Negative); Occult Blood Urine UA 3+ (Negative); Protein Urine UA NEGATIVE (Negative); Urobilinogen Urine UA 0.2 E.U./dL (0.2)
[2021-08-03 14:42] LABS: pH Urine UA 5.5 (4.5-8.0)
[2021-08-03 14:45] LABS: Bacteria Urine None Seen; Culture Indicated Urine Cult Not Indicated; RBC Urine 10-30/HPF (0-5/HPF); WBC Urine None Seen (0-5/HPF)
== END ==
PROVIDERS: Family Provider Student in an Organized Health Care Education/Training Program; PCP Student in an Organized Health Care Education/Training Program; Visit Provider Specialist
DX: R30.0 Dysuria (principal)
CPT/HCPCS: 81001

== ENCOUNTER 2021-10-03 13:45 | Outpatient (RCR) | payer MEDICARE, OTHER, SELFPAY ==
--- NOTE | 2021-03-30 16:16 | PT.OIE ---
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) Fractures (10/08/07) Hayfever (1959) Heart failure, systolic History of hip surgery (05/16/08) History of hip surgery (10/08/07) History of incision and drainage (10/03/18) History of nasal surgery (10/03/11) History of orthopedic surgery (10/17/09) History of UTI Lichen sclerosus et atrophicus (2011) Measles (1949) Microscopic hematuria Mitral stenosis Mixed incontinence Osteoarthritis (1996) Osteopenia Osteoporosis Postmenopausal atrophic vaginitis Valvular heart disease Past Surgical History (Last Reviewed 03/01/21 @ 10:09 by Alexsandra Desai MD) Anesthesia History of carpal tunnel repair (1979) History of carpal tunnel repair (03/23/04) History of cataract removal with insertion of prosthetic lens (01/02/12) History of cataract removal with insertion of prosthetic lens (12/19/11) History of hip replacement (05/08/10) History of hip surgery (05/16/08) History of hip surgery (10/08/07) History of incision and drainage (10/03/18) History of knee replacement (02/11/12) History of knee replacement (07/19/08) History of nasal surgery (10/03/11) History of orthopedic surgery (10/17/09) Status post vaginal hysterectomy (1974) Visit Care Team Role Provider Type Rochelle Ren MD Attending Provider Physician Family Provider Primary Care Provider Referring Provider Specialty: Family Practice Address: [address] [place] [address], [facility] [place], [address] Email: [email or web address] Physical Therapy Initial Evaluation PT-OP-A Visit Information Start: 03/30/21 08:43 Freq: Status: Active Protocol: Document 03/30/21 13:51 LRN (Rec: 03/30/21 15:50 LRN [id number]) Out-Patient Physical Therapy Visit Information Visit Information Visit Type Initial Evaluation Visit Start Time 13:52 Visit Stop Time 15:00 Total Visit Minutes 52 Visit Number 1 Evaluation Information Evaluation Date 03/30/21 Precautions Precautions Tape & Latex Allergy, CHF, Controlled High Blood pressure , chronic Atril Fib, R MILADY ( 2011) & bilateral knee replacements, Osteoporosis, neuropathy in feet bilaterally , falls (past summer), & dizziness with turning, with most recent last week. History of ruptured discs. Year ago had 1-2 UTI's a month , no UTI the past month (UTI's over the years). PT-OP-B Current Condition Start: 03/30/21 08:43 Freq: Status: Active Protocol: Document 03/30/21 13:51 LRN (Rec: 03/30/21 15:50 LRN [id number]) Current Condition History of Current Condition Onset Date 10 yrs ago. Current Complaints Urinary leakage all day long, sometimes History of Current Condition Usually have an urge before leaking. Not able to make it to bathroom at night without leaking. Urologist sent her to a kidney specialist because there is nothing wrong with the bladder . Kidney specialist thought it was an anatomical problem. Has Lichen Sclerosis that has caused swelling and thinks that what may be causing irritation to urethra and into vagina causing the leakage. For many years just used a pantiliner, but started using a maxipad for the past 3 yrs. Pt complains of a lot of irritation at area of episotomy. Developmental History Developmental History 10 yrs ago was put on medication for her lichen sclerosis that was too drying, so stopped using. 3 vaginal births with 1 stillborn and stitches due to episotomies x 2. Sent by urologist to learn proper kegel ex. Treatment Goals Patient/Caregiver Goals Pt goal is to perform proper Kegel, gain total control of bladder so she doesn't have to wear pads. Decrease use of maxi pad to pantiliner 2x in 24 hours (1 day, 1 night), Prior Functional Status Baseline Function- ADL's Independent Baseline Function- Mobility Independent Baseline Function- Other Pantiliner 2x/day (1 night, 1 day) Sometimes small leak with coughing or sneezing. Current Functional Impairments (Reported) Functional Limitations- Other Leaks with couging or sneezing (sometimes continent if sitting). Uses 2-4 maxipads during day and 2 at night Personal Factors Other Personal Factors That May Effect Heart disease, joint Therapy/Recovery replacements, dizziness/fall risk, Lichen sclerosis of external pelvic floor for estradol cream (generic of premarin). PT-OP-C Subjective Start: 03/30/21 08:43 Freq: Status: Active Protocol: Document 03/30/21 13:51 LRN (Rec: 03/30/21 15:50 LRN [id number]) Patient Questionnaires Pelvic Pain and Urgency/Frequency Patient Symptom Scale Pelvic Pain Score 13 OP-PT Pain Assessment Pain Assessment Grid Paper Pain Assessment Grid Completed Yes Location Lower thoracic and lumbar Pain Location Details lower thoracic and lumbar paraspinals. Intensity 2 Scale Used Numeric (0 - 10) Description Aching Frequency Constant PT-OP-G Mobility & Gait Start: 03/30/21 16:09 Freq: Status: Active Protocol: Document 03/30/21 13:51 LRN (Rec: 03/30/21 16:10 LRN [id number]) OP Gait Assessment Gait Gait Assistance Required: Independent Assistive Devices Assistive Device None,Straight Cane Comments Gait Comments Pt ambulates with a forward bent posture (hips ~10 deg's flexion) and when using a straight cane, pt uses on the left side. PT-OP-I Pelvic Floor Start: 03/30/21 08:43 Freq: Status: Active Protocol: Document 03/30/21 13:51 LRN (Rec: 03/30/21 15:50 LRN [id number]) Pelvic Floor Assessment Urine Pelvic Floor Surgery Hysterectomy, Urinary Symptoms Urge Sensation,Dribbling After Urination Leakage Size Medium Leakage Cause Cough,Sneeze,Urge Other Leakage Causes Standing Leaks Per Day All day Voiding Frequency 6-8 Nocturia 2 Pads Used In 24 Hours 2-4, 2 overnight Urine Pad Type Maxi Pad Bowel Bowel Surgery No Bowel Symptoms Uncontrolled Flatulence Bowel Movement Frequency Every other day, sometimes 3 days if out of environment. Mobile Stool Chart Comments type 3-4. Comments Pelvic Floor Comments Pt not able to perform a pelvic floor contraction in the absence of substitute muscles. Deferred PF assessment due to extra time taken for hip/core MMT and on Goal setting. PT-OP-J Posture/Palpation/Skin Start: 03/30/21 08:43 Freq: Status: Active Protocol: Document 03/30/21 13:51 LRN (Rec: 03/30/21 15:50 LRN [id number]) Posture Evaluation Position Standing T-Spine Posture Rotation Right L-Spine Posture Shifted Right Shoulder Posture (L) Elevated,(R) Elevated Weight Distribution Weight Shifted Left Hip Posture (L) Internally Rotated,(R) Internally Rotated Knee Posture (R) Excess Flexion Comments Posture Comments Standing with legs: L hip is low, pevis rotates R. PT-OP-K Range of Motion Start: 03/30/21 08:43 Freq: Status: Active Protocol: Document 03/30/21 13:51 LRN (Rec: 03/30/21 15:50 LRN [id number]) Lumbar Spine Range of Motion Lumbar Spine Active Degrees Testing Position Standing Flexion 90 Extension 5 Rotation Left 20 Rotation Right 25 Lateral Flexion Left 5 Lateral Flexion Right 3 ROM Limitations Soft Tissue Tightness Comments Trunk flexion is with 90 deg's hip flexion; therefore lumbar flex is 0 deg's. Trunk extension is with 5 deg' s hip extension; therefore lumbar ext is 0 deg's. Hip Goniometric Range of Motion Hip Right Passive Testing Position Supine Internal Rotation 45 External Rotation 55 Comments Extension lacks 15 deg's to neutral Left Passive Testing Position Supine Internal Rotation 50 External Rotation 65 Comments Extension lacks 15 deg's to neutral PT-OP-M Strength Start: 03/30/21 08:43 Freq: Status: Active Protocol: Document 03/30/21 13:51 LRN (Rec: 03/30/21 15:50 LRN [id number]) Trunk Strength Trunk Manual Muscle Testing Core Stabilization Lacks core stability with trunk extensors, rotators, and lateral flexors. Hip Strength Hip Manual Muscle Testing Right Flexion (L2) 5 Normal Abduction 3 Fair Adduction 2- Poor- External Rotation 2+ Poor+ Internal Rotation 4+ Good+ Comments Extension: Lacks ext against gravity strength due to mobility limitation and back pain. Left Flexion (L2) 5 Normal Abduction 2 Poor Adduction 5 Normal External Rotation 3 Fair Internal Rotation 4+ Good+ Comments Extension: Lacks ext against gravity strength due to mobility limitation and back pain. PT-OP-Q Treatments Start: 03/30/21 08:43 Freq: Status: Active Protocol: Document 03/30/21 13:51 LRN (Rec: 03/30/21 15:50 LRN [id number]) Self-Care/Home Management Treatment Education Other Education Discussed results of evaluation. Discussed at length goals, and reviewed plan of care (POC). Pt agreeable to goals and POC. Pt educated in use of Bladder Diary and I/S in tracking for 7 days of fluids/foods intake and output, voiding of bowel & bladder and leakage. Discussed specifics for completion of bladder diary for next 7 days. Activities Self-Care/Home Management Activities Issued & reviewed handout for Kegel exercises for Quick Flicks, Long Holds & Aggrevators. PT-OP-T Assessment and Plan Start: 03/30/21 08:43 Freq: Status: Active Protocol: Document 03/30/21 13:51 LRN (Rec: 03/30/21 15:50 LRN [id number]) Physical Therapy Assessment Rehab Potential Rehabilitation Potential Good Evaluation Complexity Number of Personal Factors/Comorbidities 3 or More Number of Body Systems Impaired 4 or More Clinical Presentation at Evaluation Evolving Impairments Impairments Activity Tolerance,Pain, Posture,ROM,Soft Tissue Mobility,Strength Goals Four Impairment Urinary leakage in the presence of a strong urge. Short Term Goal (STG) Pt will be educated in urinary delay technique. STG Duration 04/07/21 Quality Control Tester Goal (LTG) Pt will be able to maintain urinary continence in the presence of a strong urge and decrease need for maxi-pads to use of pantiliner 2x/day in 24 hours (max 1 during the night). LTG Duration 06/28/21 Three Impairment Urinary incontinence with a strong cough, sneeze. Short Term Goal (STG) Improve PF strength per Long Hold to 5 sec's and Quick Flicks 5 reps prior to fatigue STG Duration 05/15/21 Nursing Home Goal (LTG) Pt will have decreased complaints of urinary stress incontinent symptoms with no greater than a small leak in the presence of a strong cough or sneeze. LTG Duration 06/28/21 Two Impairment Substitution of abdominal, glut, & hip AD ms to perform a PF contraction. Short Term Goal (STG) Pt will be able to perform a proper PF contraction. STG Duration 04/28/21 Quality Control Tester Goal (LTG) Pt will be able to perform a proper PF contraction in the absence of abdominal/gluteal/ hip AD muscles. LTG Duration 06/28/21 One Impairment Pt lacks an independent self care HEP. Impairment Decreased hip mobility (Hip IR 50 L, 45 R; ER 65 L, 55 R). Short Term Goal (STG) Pt will be educated in proper transfers (hip hinging) and transfers with use of proper breathing to minimize stress on pelvic floor (PF). STG Duration 04/14/21 Nursing Home Goal (LTG) Pt will be independent in a self care HEP for PF strengthening and hip mobility ex's. LTG Duration 06/28/21 Assessment Summary Assessment Pt presents with symptoms of mixed urinary incontinence with complaints of urinary leakage with a strong urge and with stress to the pelvic floor. The pt will be hindered in her rehabilitation due to comorbidities of mechanical back, R hip, and bilateral knee history of dysfunction. Poor posturing also hinders her core pressures affecting her bowel/ bladder function. She is also hindered by her cardiac history and exercise tolerance . The pt will benefit from skilled physical therapy to achieve the above stated goals . Physical Therapy Plan Frequency and Duration Frequency of Treatment 1x/Week Plan of Care Start Date 03/30/21 Plan of Care End Date 06/28/21 Therapeutic Interventions Therapeutic Interventions Home Exercise Program,Manual Therapy,Neuromuscular Re- education,Patient/Caregiver Education,Self-Care/Home Management,Sensory Integration ,Therapeutic Activities, Therapeutic Exercises Modalities Cold Pack/Ice Massage,Hot Packs Next Visit Focus/Plan Next Note Type Treatment Note Next Visit Plan Review bladder diary, pt education in proper Kegel without use of substitute muscles, teach proper isolated Kegels for pelvic stabilization, pt education in proper vulvar/genital care, deep breathing and transfers, PF/core/hip strengthening, improve hip mobility (hip ext, ER/IR), improve abdominal soft tissue (bladder) mobility , discuss foods, and water intake. Discuss stool types, foods, water intake, Check hip mobility, and hip IR/ER strength, TA strengthening, K- taping for DR, discuss & educate pt in proper squatting and lifting, sit to stand, and moving in bed using breathwork and core/PF stabilization for proper abdominal pressure system, STM of abdomen (and urachus), bladder.
--- NOTE | 2021-03-30 16:16 | PT.OPPOC ---
Physical, Occupational & Speech Therapy At Located Within [facility] Current Diagnoses Postural kyphosis, site unspecified (03/30/21) Muscle weakness (generalized) (03/30/21) Mixed incontinence (03/30/21) Visit Care Team Role Provider Type Rochelle Ren MD Attending Provider Physician Family Provider Primary Care Provider Referring Provider Specialty: Family Practice Address: [address] [place] [address], [facility] [place], [place], [facility] Email: [email or web address] Plan Of Care PT-OP-T Assessment and Plan Start: 03/30/21 08:43 Freq: Status: Active Protocol: Document 03/30/21 13:51 LRN (Rec: 03/30/21 15:50 LRN [id number]) Physical Therapy Assessment Rehab Potential Rehabilitation Potential Good Evaluation Complexity Number of Personal Factors/Comorbidities 3 or More Number of Body Systems Impaired 4 or More Clinical Presentation at Evaluation Evolving Impairments Impairments Activity Tolerance,Pain, Posture,ROM,Soft Tissue Mobility,Strength Goals Four Impairment Urinary leakage in the presence of a strong urge. Short Term Goal (STG) Pt will be educated in urinary delay technique. STG Duration 04/07/21 Snf Goal (LTG) Pt will be able to maintain urinary continence in the presence of a strong urge and decrease need for maxi-pads to use of pantiliner 2x/day in 24 hours (max 1 during the night). LTG Duration 06/28/21 Three Impairment Urinary incontinence with a strong cough, sneeze. Short Term Goal (STG) Improve PF strength per Long Hold to 5 sec's and Quick Flicks 5 reps prior to fatigue STG Duration 05/15/21 Snf Goal (LTG) Pt will have decreased complaints of urinary stress incontinent symptoms with no greater than a small leak in the presence of a strong cough or sneeze. LTG Duration 06/28/21 Two Impairment Substitution of abdominal, glut, & hip AD ms to perform a PF contraction. Short Term Goal (STG) Pt will be able to perform a proper PF contraction. STG Duration 04/28/21 Salesperson Women'S Dresses Goal (LTG) Pt will be able to perform a proper PF contraction in the absence of abdominal/gluteal/ hip AD muscles. LTG Duration 06/28/21 One Impairment Pt lacks an independent self care HEP. Impairment Decreased hip mobility (Hip IR 50 L, 45 R; ER 65 L, 55 R). Short Term Goal (STG) Pt will be educated in proper transfers (hip hinging) and transfers with use of proper breathing to minimize stress on pelvic floor (PF). STG Duration 04/14/21 Snf Goal (LTG) Pt will be independent in a self care HEP for PF strengthening and hip mobility ex's. LTG Duration 06/28/21 Assessment Summary Assessment Pt presents with symptoms of mixed urinary incontinence with complaints of urinary leakage with a strong urge and with stress to the pelvic floor. The pt will be hindered in her rehabilitation due to comorbidities of mechanical back, R hip, and bilateral knee history of dysfunction. Poor posturing also hinders her core pressures affecting her bowel/ bladder function. She is also hindered by her cardiac history and exercise tolerance . The pt will benefit from skilled physical therapy to achieve the above stated goals . Physical Therapy Plan Frequency and Duration Frequency of Treatment 1x/Week Plan of Care Start Date 03/30/21 Plan of Care End Date 06/28/21 Therapeutic Interventions Therapeutic Interventions Home Exercise Program,Manual Therapy,Neuromuscular Re- education,Patient/Caregiver Education,Self-Care/Home Management,Sensory Integration ,Therapeutic Activities, Therapeutic Exercises Modalities Cold Pack/Ice Massage,Hot Packs Next Visit Focus/Plan Next Note Type Treatment Note Next Visit Plan Review bladder diary, pt education in proper Kegel without use of substitute muscles, teach proper isolated Kegels for pelvic stabilization, pt education in proper vulvar/genital care, deep breathing and transfers, PF/core/hip strengthening, improve hip mobility (hip ext, ER/IR), improve abdominal soft tissue (bladder) mobility , discuss foods, and water intake. Discuss stool types, foods, water intake, Check hip mobility, and hip IR/ER strength, TA strengthening, K- taping for DR, discuss & educate pt in proper squatting and lifting, sit to stand, and moving in bed using breathwork and core/PF stabilization for proper abdominal pressure system, STM of abdomen (and urachus), bladder. Plan of Care Dates Plan of Care Start Date 03/30/21 Plan of Care End Date 06/28/21 Electronically Signed by: Bertha Galvez, PT 03/30/21 1616 Please Sign and Return: I have reviewed this Plan of Care and certify that the skilled therapy services above are required to meet the patient?s needs. Physician Signature Date Printed Name and Credentials Clinical Instructor Signature Printed Name and Credentials
--- NOTE | 2021-04-14 15:30 | PT.OTN ---
Current Diagnoses Postural kyphosis, site unspecified (04/14/21) Muscle weakness (generalized) (04/14/21) Mixed incontinence (04/14/21) Physical Therapy Treatment Note PT-OP-A Visit Information Start: 03/30/21 08:43 Freq: Status: Active Protocol: Document 04/14/21 11:23 LRN (Rec: 04/14/21 12:27 LRN [id number]) Out-Patient Physical Therapy Visit Information Visit Information Visit Type Treatment Note Visit Start Time 11:23 Visit Stop Time 12:09 Total Visit Minutes 46 Visit Number 2 Evaluation Information Evaluation Date 03/30/21 Precautions Precautions Tape & Latex Allergy, CHF, Controlled High Blood pressure , chronic Atril Fib, R MILADY ( 2011) & bilateral knee replacements, Osteoporosis, neuropathy in feet bilaterally , falls (past summer), & dizziness with turning, with most recent last week. History of ruptured discs. Year ago had 1-2 UTI's a month , no UTI the past month (UTI's over the years). PT-OP-B Current Condition Start: 03/30/21 08:43 Freq: Status: Active Protocol: Document 03/30/21 13:51 LRN (Rec: 03/30/21 15:50 LRN [id number]) Current Condition History of Current Condition Onset Date 10 yrs ago. Current Complaints Urinary leakage all day long, sometimes History of Current Condition Usually have an urge before leaking. Not able to make it to bathroom at night without leaking. Urologist sent her to a kidney specialist because there is nothing wrong with the bladder . Kidney specialist thought it was an anatomical problem. Has Lichen Sclerosis that has caused swelling and thinks that what may be causing irritation to urethra and into vagina causing the leakage. For many years just used a pantiliner, but started using a maxipad for the past 3 yrs. Pt complains of a lot of irritation at area of episotomy. Developmental History Developmental History 10 yrs ago was put on medication for her lichen sclerosis that was too drying, so stopped using. 3 vaginal births with 1 stillborn and stitches due to episotomies x 2. Sent by urologist to learn proper kegel ex. Treatment Goals Patient/Caregiver Goals Pt goal is to perform proper Kegel, gain total control of bladder so she doesn't have to wear pads. Decrease use of maxi pad to pantiliner 2x in 24 hours (1 day, 1 night), Prior Functional Status Baseline Function- ADL's Independent Baseline Function- Mobility Independent Baseline Function- Other Pantiliner 2x/day (1 night, 1 day) Sometimes small leak with coughing or sneezing. Current Functional Impairments (Reported) Functional Limitations- Other Leaks with couging or sneezing (sometimes continent if sitting). Uses 2-4 maxipads during day and 2 at night Personal Factors Other Personal Factors That May Effect Heart disease, joint Therapy/Recovery replacements, dizziness/fall risk, Lichen sclerosis of external pelvic floor for estradol cream (generic of premarin). PT-OP-C Subjective Start: 03/30/21 08:43 Freq: Status: Active Protocol: Document 04/14/21 11:23 LRN (Rec: 04/14/21 12:27 LRN [id number]) OP-PT Subjective Patient Comments Patient Comments Has normal BM's daily. PT-OP-G Mobility & Gait Start: 03/30/21 16:09 Freq: Status: Active Protocol: Document 03/30/21 13:51 LRN (Rec: 03/30/21 16:10 LRN [id number]) OP Gait Assessment Gait Gait Assistance Required: Independent Assistive Devices Assistive Device None,Straight Cane Comments Gait Comments Pt ambulates with a forward bent posture (hips ~10 deg's flexion) and when using a straight cane, pt uses on the left side. PT-OP-I Pelvic Floor Start: 03/30/21 08:43 Freq: Status: Active Protocol: Document 04/14/21 11:23 LRN (Rec: 04/14/21 12:27 LRN [id number]) Pelvic Floor Assessment Contraction Ability Voluntary Contraction Moderate Voluntary Relaxation Moderate Manual Muscle Testing Left 3 Manual Muscle Testing Right 2 Manual Muscle Testing Anterior 2 Manual Muscle Testing Posterior 3 Comments Pelvic Floor Comments PF Muscle contractions are with substitution muscles. Muscle Endurance: Pt able to hold 10 secs on L side, not R side. Quick Contractions: 0 palpable superficial PF ms contraction. Pt able to perform quick contractions of deep muscles. PT-OP-J Posture/Palpation/Skin Start: 03/30/21 08:43 Freq: Status: Active Protocol: Document 03/30/21 13:51 LRN (Rec: 03/30/21 15:50 LRN [id number]) Posture Evaluation Position Standing T-Spine Posture Rotation Right L-Spine Posture Shifted Right Shoulder Posture (L) Elevated,(R) Elevated Weight Distribution Weight Shifted Left Hip Posture (L) Internally Rotated,(R) Internally Rotated Knee Posture (R) Excess Flexion Comments Posture Comments Standing with legs: L hip is low, pevis rotates R. PT-OP-K Range of Motion Start: 03/30/21 08:43 Freq: Status: Active Protocol: Document 03/30/21 13:51 LRN (Rec: 03/30/21 15:50 LRN [id number]) Lumbar Spine Range of Motion Lumbar Spine Active Degrees Testing Position Standing Flexion 90 Extension 5 Rotation Left 20 Rotation Right 25 Lateral Flexion Left 5 Lateral Flexion Right 3 ROM Limitations Soft Tissue Tightness Comments Trunk flexion is with 90 deg's hip flexion; therefore lumbar flex is 0 deg's. Trunk extension is with 5 deg' s hip extension; therefore lumbar ext is 0 deg's. Hip Goniometric Range of Motion Hip Right Passive Testing Position Supine Internal Rotation 45 External Rotation 55 Comments Extension lacks 15 deg's to neutral Left Passive Testing Position Supine Internal Rotation 50 External Rotation 65 Comments Extension lacks 15 deg's to neutral PT-OP-M Strength Start: 03/30/21 08:43 Freq: Status: Active Protocol: Document 03/30/21 13:51 LRN (Rec: 03/30/21 15:50 LRN [id number]) Trunk Strength Trunk Manual Muscle Testing Core Stabilization Lacks core stability with trunk extensors, rotators, and lateral flexors. Hip Strength Hip Manual Muscle Testing Right Flexion (L2) 5 Normal Abduction 3 Fair Adduction 2- Poor- External Rotation 2+ Poor+ Internal Rotation 4+ Good+ Comments Extension: Lacks ext against gravity strength due to mobility limitation and back pain. Left Flexion (L2) 5 Normal Abduction 2 Poor Adduction 5 Normal External Rotation 3 Fair Internal Rotation 4+ Good+ Comments Extension: Lacks ext against gravity strength due to mobility limitation and back pain. PT-OP-Q Treatments Start: 03/30/21 08:43 Freq: Status: Active Protocol: Document 04/14/21 11:23 LRN (Rec: 04/14/21 12:27 LRN [id number]) Therapeutic Exercises Supine Exercises PF Long Holds Supine Exercise Name Long Holds Reps/Minutes 9' Comments Digitial phys stim on R side during contraction PF Quick Flicks Supine Exercise Name Quick Flicks Reps/Minutes 5' Comments Phys assist with manual resist R hip AD during Contraction Self-Care/Home Management Treatment Education Other Education 26' Discussed and trained pt in urinary delay technique, reviewed and discussed foods/ drinks to avoid, and discussed appropriate and norms for water intake. Activities Self-Care/Home Management Activities Issued handouts for Urinary Delay technique, Foods to Avoid. PT-OP-T Assessment and Plan Start: 03/30/21 08:43 Freq: Status: Active Protocol: Document 04/14/21 11:23 LRN (Rec: 04/14/21 12:27 LRN [id number]) Physical Therapy Assessment Goals Four Impairment Urinary leakage in the presence of a strong urge. Short Term Goal (STG) Pt will be educated in urinary delay technique. STG Duration 04/07/21 (04/14/21: MET GOAL) Rn Clinical Resource Goal (LTG) Pt will be able to maintain urinary continence in the presence of a strong urge and decrease need for maxi-pads to use of pantiliner 2x/day in 24 hours (max 1 during the night). LTG Duration 06/28/21 Three Impairment Urinary incontinence with a strong cough, sneeze. Short Term Goal (STG) Improve PF strength per Long Hold to 5 sec's and Quick Flicks 5 reps prior to fatigue STG Duration 05/15/21 Snf Goal (LTG) Pt will have decreased complaints of urinary stress incontinent symptoms with no greater than a small leak in the presence of a strong cough or sneeze. LTG Duration 06/28/21 Two Impairment Substitution of abdominal, glut, & hip AD ms to perform a PF contraction. Short Term Goal (STG) Pt will be able to perform a proper PF contraction. (04/14/21: Initiated PF strengthening in isolation of substitute muscles) STG Duration 04/28/21 (04/14/21: Progressed) Snf Goal (LTG) Pt will be able to perform a proper PF contraction in the absence of abdominal/gluteal/ hip AD muscles. LTG Duration 06/28/21 One Impairment Pt lacks an independent self care HEP. Impairment Decreased hip mobility (Hip IR 50 L, 45 R; ER 65 L, 55 R). Short Term Goal (STG) Pt will be educated in proper transfers (hip hinging) and transfers with use of proper breathing to minimize stress on pelvic floor (PF). STG Duration 04/14/21 Rn Clinical Resource Goal (LTG) Pt will be independent in a self care HEP for PF strengthening and hip mobility ex's. LTG Duration 06/28/21 Progress Towards Goals Progress Comments STG #4: MET. Pt educated in urinary urge deference technique. STG #2: Progressed, Initiated PF strengthening in isolation of substitute muscles. Assessment Summary Assessment Pt presents with bladder diary indicating coffee drinking along with decreased water intake, greater water intake in PM, and urinary leakage always during the night. She appears to not being well hydrated and possibly having concentrated urine causing leakage with urge. Per palpation, pt has decreased PF contraction on the right side . She has palpable deep PF contractions and no significant superficial PF contractions. Pt needs training on isolating the PF contraction and strengthening of her quick flicks > long holds. Pt does not appear to have stool problem with pt voiding daily and pt noting normal stools. Physical Therapy Plan Frequency and Duration Frequency of Treatment 1x/Week Plan of Care Start Date 03/30/21 Plan of Care End Date 06/28/21 Next Visit Focus/Plan Next Note Type Treatment Note Next Visit Plan Review Kegel without use of substitute muscles, isolated Kegels for pelvic stabilization, pt education in proper vulvar/genital care, deep breathing and transfers, PF/core/hip strengthening, improve hip mobility (hip ext, ER/IR), improve abdominal soft tissue (bladder) mobility . Check hip mobility, and hip IR /ER strength, TA strengthening , discuss & educate pt in proper squatting and lifting, sit to stand, and moving in bed using breathwork and core/ PF stabilization for proper abdominal pressure system, STM of abdomen (and urachus), bladder.
--- NOTE | 2021-04-20 15:57 | PT.OTN ---
Current Diagnoses Postural kyphosis, site unspecified (04/20/21) Muscle weakness (generalized) (04/20/21) Mixed incontinence (04/20/21) Physical Therapy Treatment Note PT-OP-A Visit Information Start: 03/30/21 08:43 Freq: Status: Active Protocol: Document 04/20/21 13:35 LRN (Rec: 04/20/21 15:56 LRN [id number]) Out-Patient Physical Therapy Visit Information Visit Information Visit Type Treatment Note Visit Start Time 13:36 Visit Stop Time 14:16 Total Visit Minutes 40 Visit Number 3 Evaluation Information Evaluation Date 03/30/21 Precautions Precautions Tape & Latex Allergy, CHF, Controlled High Blood pressure , chronic Atril Fib, R MILADY ( 2011) & bilateral knee replacements, Osteoporosis, neuropathy in feet bilaterally , falls (past summer), & dizziness with turning, with most recent last week. History of ruptured discs. Year ago had 1-2 UTI's a month , no UTI the past month (UTI's over the years). PT-OP-B Current Condition Start: 03/30/21 08:43 Freq: Status: Active Protocol: Document 03/30/21 13:51 LRN (Rec: 03/30/21 15:50 LRN [id number]) Current Condition History of Current Condition Onset Date 10 yrs ago. Current Complaints Urinary leakage all day long, sometimes History of Current Condition Usually have an urge before leaking. Not able to make it to bathroom at night without leaking. Urologist sent her to a kidney specialist because there is nothing wrong with the bladder . Kidney specialist thought it was an anatomical problem. Has Lichen Sclerosis that has caused swelling and thinks that what may be causing irritation to urethra and into vagina causing the leakage. For many years just used a pantiliner, but started using a maxipad for the past 3 yrs. Pt complains of a lot of irritation at area of episotomy. Developmental History Developmental History 10 yrs ago was put on medication for her lichen sclerosis that was too drying, so stopped using. 3 vaginal births with 1 stillborn and stitches due to episotomies x 2. Sent by urologist to learn proper kegel ex. Treatment Goals Patient/Caregiver Goals Pt goal is to perform proper Kegel, gain total control of bladder so she doesn't have to wear pads. Decrease use of maxi pad to pantiliner 2x in 24 hours (1 day, 1 night), Prior Functional Status Baseline Function- ADL's Independent Baseline Function- Mobility Independent Baseline Function- Other Pantiliner 2x/day (1 night, 1 day) Sometimes small leak with coughing or sneezing. Current Functional Impairments (Reported) Functional Limitations- Other Leaks with couging or sneezing (sometimes continent if sitting). Uses 2-4 maxipads during day and 2 at night Personal Factors Other Personal Factors That May Effect Heart disease, joint Therapy/Recovery replacements, dizziness/fall risk, Lichen sclerosis of external pelvic floor for estradol cream (generic of premarin). PT-OP-C Subjective Start: 03/30/21 08:43 Freq: Status: Active Protocol: Document 04/20/21 13:35 LRN (Rec: 04/20/21 15:56 LRN [id number]) OP-PT Subjective Patient Comments Patient Comments States she only gets up once a night and last night didn't get up and was able to get to toilet without leaking. Sometimes leaks without realizing it, but leaks very little. Hasn't been leaking with coughing or sneezing. Most of the time no leakage with a strong urge. PT-OP-G Mobility & Gait Start: 03/30/21 16:09 Freq: Status: Active Protocol: Document 03/30/21 13:51 LRN (Rec: 03/30/21 16:10 LRN [id number]) OP Gait Assessment Gait Gait Assistance Required: Independent Assistive Devices Assistive Device None,Straight Cane Comments Gait Comments Pt ambulates with a forward bent posture (hips ~10 deg's flexion) and when using a straight cane, pt uses on the left side. PT-OP-I Pelvic Floor Start: 03/30/21 08:43 Freq: Status: Active Protocol: Document 04/14/21 11:23 LRN (Rec: 04/14/21 12:27 LRN [id number]) Pelvic Floor Assessment Contraction Ability Voluntary Contraction Moderate Voluntary Relaxation Moderate Manual Muscle Testing Left 3 Manual Muscle Testing Right 2 Manual Muscle Testing Anterior 2 Manual Muscle Testing Posterior 3 Comments Pelvic Floor Comments PF Muscle contractions are with substitution muscles. Muscle Endurance: Pt able to hold 10 secs on L side, not R side. Quick Contractions: 0 palpable superficial PF ms contraction. Pt able to perform quick contractions of deep muscles. PT-OP-J Posture/Palpation/Skin Start: 03/30/21 08:43 Freq: Status: Active Protocol: Document 03/30/21 13:51 LRN (Rec: 03/30/21 15:50 LRN [id number]) Posture Evaluation Position Standing T-Spine Posture Rotation Right L-Spine Posture Shifted Right Shoulder Posture (L) Elevated,(R) Elevated Weight Distribution Weight Shifted Left Hip Posture (L) Internally Rotated,(R) Internally Rotated Knee Posture (R) Excess Flexion Comments Posture Comments Standing with legs: L hip is low, pevis rotates R. PT-OP-K Range of Motion Start: 03/30/21 08:43 Freq: Status: Active Protocol: Document 03/30/21 13:51 LRN (Rec: 03/30/21 15:50 LRN [id number]) Lumbar Spine Range of Motion Lumbar Spine Active Degrees Testing Position Standing Flexion 90 Extension 5 Rotation Left 20 Rotation Right 25 Lateral Flexion Left 5 Lateral Flexion Right 3 ROM Limitations Soft Tissue Tightness Comments Trunk flexion is with 90 deg's hip flexion; therefore lumbar flex is 0 deg's. Trunk extension is with 5 deg' s hip extension; therefore lumbar ext is 0 deg's. Hip Goniometric Range of Motion Hip Right Passive Testing Position Supine Internal Rotation 45 External Rotation 55 Comments Extension lacks 15 deg's to neutral Left Passive Testing Position Supine Internal Rotation 50 External Rotation 65 Comments Extension lacks 15 deg's to neutral PT-OP-M Strength Start: 03/30/21 08:43 Freq: Status: Active Protocol: Document 03/30/21 13:51 LRN (Rec: 03/30/21 15:50 LRN [id number]) Trunk Strength Trunk Manual Muscle Testing Core Stabilization Lacks core stability with trunk extensors, rotators, and lateral flexors. Hip Strength Hip Manual Muscle Testing Right Flexion (L2) 5 Normal Abduction 3 Fair Adduction 2- Poor- External Rotation 2+ Poor+ Internal Rotation 4+ Good+ Comments Extension: Lacks ext against gravity strength due to mobility limitation and back pain. Left Flexion (L2) 5 Normal Abduction 2 Poor Adduction 5 Normal External Rotation 3 Fair Internal Rotation 4+ Good+ Comments Extension: Lacks ext against gravity strength due to mobility limitation and back pain. PT-OP-Q Treatments Start: 03/30/21 08:43 Freq: Status: Active Protocol: Document 04/20/21 13:35 LRN (Rec: 04/20/21 15:56 LRN [id number]) Therapeutic Exercises Supine Exercises Fig 4 stretch Supine Exercise Name Fig 4 stretch Side bilateral Reps/Minutes 3' Comments Pt needed correction of L ant rot innominate before fawn L hip stretch Piriformis stretch Supine Exercise Name Piriformis stretch with emphysis on minimal stretch Side right Reps/Minutes 2' Comments Much cuing for pt to not overstretch due to s/p MILADY PF Long Holds Supine Exercise Name Long Holds Reps/Minutes 3' Comments Digitial phys stim on R side during contraction PF Quick Flicks Supine Exercise Name Quick Flicks Reps/Minutes 2' Comments Phys assist with manual resist R hip AD during Contraction Sitting Exercises Sit to stand Sitting Exercise Name w/hip hinging, proper breath pattern, & PF quick/long contractions Reps/Minutes 15' Comments Cuing for breathing & cuing for PF long hold Manual Therapy Treatment Joint Mobilizations L SIJ Joint L SIJ Direction Correction for an anter rot L innominate Body Position Supine Reps/Duration 7' Comments Correction per MFR. Self-Care/Home Management Treatment Education Other Education Pt educated in proper transfers (hip hinging) and transfers with use of proper breathing to minimize stress on pelvic floor (PF) Pt educated in self correction for an anteriorly rot L innominate. Activities Self-Care/Home Management Activities I/S pt in sit to stands, long hold of 3 reps, and 5x for quick flicks (contraction with each change of position). Pt wrote self I/S. Issued & reviewed HEP: Hip ER and Piriformis type stretch. Issued & reviewed handout for self correction of L SIJ dysfunction Phase 1, without DKTC stretch. PT-OP-T Assessment and Plan Start: 03/30/21 08:43 Freq: Status: Active Protocol: Document 04/20/21 13:35 LRN (Rec: 04/20/21 15:56 LRN [id number]) Physical Therapy Assessment Goals Four Impairment Urinary leakage in the presence of a strong urge. Short Term Goal (STG) Pt will be educated in urinary delay technique. STG Duration 04/07/21 (04/14/21: MET GOAL) Human Resources Records Clerk Goal (LTG) Pt will be able to maintain urinary continence in the presence of a strong urge and decrease need for maxi-pads to use of pantiliner 2x/day in 24 hours (max 1 during the night). (04/20/21: At night and day, wearing a midi-pad - level 4) LTG Duration 06/28/21 (04/20/21: MET GOAL) Three Impairment Urinary incontinence with a strong cough, sneeze. Short Term Goal (STG) Improve PF strength per Long Hold to 5 sec's and Quick Flicks 5 reps prior to fatigue STG Duration 05/15/21 Human Resources Records Clerk Goal (LTG) Pt will have decreased complaints of urinary stress incontinent symptoms with no greater than a small leak in the presence of a strong cough or sneeze. LTG Duration 06/28/21 (04/20/21: MET GOAL) Two Impairment Substitution of abdominal, glut, & hip AD ms to perform a PF contraction. Short Term Goal (STG) Pt will be able to perform a proper PF contraction. (04/14/21: Initiated PF strengthening in isolation of substitute muscles) STG Duration 04/28/21 (04/14/21: Progressed) Human Resources Records Clerk Goal (LTG) Pt will be able to perform a proper PF contraction in the absence of abdominal/gluteal/ hip AD muscles. LTG Duration 06/28/21 One Impairment Pt lacks an independent self care HEP. Impairment Decreased hip mobility (Hip IR 50 L, 45 R; ER 65 L, 55 R). Short Term Goal (STG) Pt will be educated in proper transfers (hip hinging) and transfers with use of proper breathing to minimize stress on pelvic floor (PF). STG Duration 04/14/21 (04/20/21: MET GOAL) Human Resources Records Clerk Goal (LTG) Pt will be independent in a self care HEP for PF strengthening and hip mobility ex's. (04/20/21: HEP: added Hip Fig 4 & Piriformis-type stretch) LTG Duration 06/28/21 (04/20/21: Progressed) Progress Towards Goals Progress Comments Progressed HEP. Assessment Summary Assessment Pt improving in urinary continence. Pt anter rot L innominate was corrected with manual therapy; therefore pt was able to tolerate hip ER positioining. Physical Therapy Plan Frequency and Duration Frequency of Treatment 1x/Week Plan of Care Start Date 03/30/21 Plan of Care End Date 06/28/21 Next Visit Focus/Plan Next Note Type Treatment Note Next Visit Plan Review Kegel without use of substitute muscles, isolated Kegels for pelvic stabilization & R hip ER/IR stretch; pt education in proper vulvar/genital care, deep breathing, PF/core/hip strengthening, improve hip mobility (hip ext, ER/IR), improve abdominal soft tissue (bladder) mobility. Check hip mobility, and hip IR /ER strength, TA strengthening , discuss & educate pt in proper squatting and lifting, and moving in bed using breathwork and core/PF stabilization for proper abdominal pressure system, STM of abdomen (and urachus), bladder.
--- NOTE | 2021-04-28 12:23 | PT.OTN ---
Current Diagnoses Postural kyphosis, site unspecified (04/28/21) Muscle weakness (generalized) (04/28/21) Mixed incontinence (04/28/21) Physical Therapy Treatment Note PT-OP-A Visit Information Start: 03/30/21 08:43 Freq: Status: Active Protocol: Document 04/28/21 11:17 LRN (Rec: 04/28/21 12:22 LRN [id number]) Out-Patient Physical Therapy Visit Information Visit Information Visit Type Treatment Note Visit Start Time :17 Visit Stop Time 12:06 Total Visit Minutes 49 Visit Number 4 Evaluation Information Evaluation Date 03/30/21 Precautions Precautions Tape & Latex Allergy, CHF, Controlled High Blood pressure , chronic Atril Fib, R MILADY ( 2011) & bilateral knee replacements, Osteoporosis, neuropathy in feet bilaterally , falls (past summer), & dizziness with turning, with most recent last week. History of ruptured discs. Year ago had 1-2 UTI's a month , no UTI the past month (UTI's over the years). PT-OP-B Current Condition Start: 03/30/21 08:43 Freq: Status: Active Protocol: Document 03/30/21 13:51 LRN (Rec: 03/30/21 15:50 LRN [id number]) Current Condition History of Current Condition Onset Date 10 yrs ago. Current Complaints Urinary leakage all day long, sometimes History of Current Condition Usually have an urge before leaking. Not able to make it to bathroom at night without leaking. Urologist sent her to a kidney specialist because there is nothing wrong with the bladder . Kidney specialist thought it was an anatomical problem. Has Lichen Sclerosis that has caused swelling and thinks that what may be causing irritation to urethra and into vagina causing the leakage. For many years just used a pantiliner, but started using a maxipad for the past 3 yrs. Pt complains of a lot of irritation at area of episotomy. Developmental History Developmental History 10 yrs ago was put on medication for her lichen sclerosis that was too drying, so stopped using. 3 vaginal births with 1 stillborn and stitches due to episotomies x 2. Sent by urologist to learn proper kegel ex. Treatment Goals Patient/Caregiver Goals Pt goal is to perform proper Kegel, gain total control of bladder so she doesn't have to wear pads. Decrease use of maxi pad to pantiliner 2x in 24 hours (1 day, 1 night), Prior Functional Status Baseline Function- ADL's Independent Baseline Function- Mobility Independent Baseline Function- Other Pantiliner 2x/day (1 night, 1 day) Sometimes small leak with coughing or sneezing. Current Functional Impairments (Reported) Functional Limitations- Other Leaks with couging or sneezing (sometimes continent if sitting). Uses 2-4 maxipads during day and 2 at night Personal Factors Other Personal Factors That May Effect Heart disease, joint Therapy/Recovery replacements, dizziness/fall risk, Lichen sclerosis of external pelvic floor for estradol cream (generic of premarin). PT-OP-C Subjective Start: 03/30/21 08:43 Freq: Status: Active Protocol: Document 04/28/21 11:17 LRN (Rec: 04/28/21 12:22 LRN [id number]) OP-PT Subjective Patient Comments Patient Comments Had trouble remembering what she was supposed to be doing at home when she got home. Was able to go 2 days using only several pads, then it started leaking again. Still hasn't had to use a maxi pad. Feels confident she is progressing. PT-OP-G Mobility & Gait Start: 03/30/21 16:09 Freq: Status: Active Protocol: Document 03/30/21 13:51 LRN (Rec: 03/30/21 16:10 LRN [id number]) OP Gait Assessment Gait Gait Assistance Required: Independent Assistive Devices Assistive Device None,Straight Cane Comments Gait Comments Pt ambulates with a forward bent posture (hips ~10 deg's flexion) and when using a straight cane, pt uses on the left side. PT-OP-I Pelvic Floor Start: 03/30/21 08:43 Freq: Status: Active Protocol: Document 04/14/21 11:23 LRN (Rec: 04/14/21 12:27 LRN [id number]) Pelvic Floor Assessment Contraction Ability Voluntary Contraction Moderate Voluntary Relaxation Moderate Manual Muscle Testing Left 3 Manual Muscle Testing Right 2 Manual Muscle Testing Anterior 2 Manual Muscle Testing Posterior 3 Comments Pelvic Floor Comments PF Muscle contractions are with substitution muscles. Muscle Endurance: Pt able to hold 10 secs on L side, not R side. Quick Contractions: 0 palpable superficial PF ms contraction. Pt able to perform quick contractions of deep muscles. PT-OP-J Posture/Palpation/Skin Start: 03/30/21 08:43 Freq: Status: Active Protocol: Document 03/30/21 13:51 LRN (Rec: 03/30/21 15:50 LRN [id number]) Posture Evaluation Position Standing T-Spine Posture Rotation Right L-Spine Posture Shifted Right Shoulder Posture (L) Elevated,(R) Elevated Weight Distribution Weight Shifted Left Hip Posture (L) Internally Rotated,(R) Internally Rotated Knee Posture (R) Excess Flexion Comments Posture Comments Standing with legs: L hip is low, pevis rotates R. PT-OP-K Range of Motion Start: 03/30/21 08:43 Freq: Status: Active Protocol: Document 03/30/21 13:51 LRN (Rec: 03/30/21 15:50 LRN [id number]) Lumbar Spine Range of Motion Lumbar Spine Active Degrees Testing Position Standing Flexion 90 Extension 5 Rotation Left 20 Rotation Right 25 Lateral Flexion Left 5 Lateral Flexion Right 3 ROM Limitations Soft Tissue Tightness Comments Trunk flexion is with 90 deg's hip flexion; therefore lumbar flex is 0 deg's. Trunk extension is with 5 deg' s hip extension; therefore lumbar ext is 0 deg's. Hip Goniometric Range of Motion Hip Right Passive Testing Position Supine Internal Rotation 45 External Rotation 55 Comments Extension lacks 15 deg's to neutral Left Passive Testing Position Supine Internal Rotation 50 External Rotation 65 Comments Extension lacks 15 deg's to neutral PT-OP-M Strength Start: 03/30/21 08:43 Freq: Status: Active Protocol: Document 03/30/21 13:51 LRN (Rec: 03/30/21 15:50 LRN [id number]) Trunk Strength Trunk Manual Muscle Testing Core Stabilization Lacks core stability with trunk extensors, rotators, and lateral flexors. Hip Strength Hip Manual Muscle Testing Right Flexion (L2) 5 Normal Abduction 3 Fair Adduction 2- Poor- External Rotation 2+ Poor+ Internal Rotation 4+ Good+ Comments Extension: Lacks ext against gravity strength due to mobility limitation and back pain. Left Flexion (L2) 5 Normal Abduction 2 Poor Adduction 5 Normal External Rotation 3 Fair Internal Rotation 4+ Good+ Comments Extension: Lacks ext against gravity strength due to mobility limitation and back pain. PT-OP-Q Treatments Start: 03/30/21 08:43 Freq: Status: Active Protocol: Document 04/28/21 11:17 LRN (Rec: 04/28/21 12:22 LRN [id number]) Therapeutic Exercises Supine Exercises Roll in/out w/PF/deep breathing Supine Exercise Name LE roll in/out w/PF/deep breathing Side bilateral Reps/Minutes 10x Comments Extra time for training for awareness and coordination of ex Fig 4 stretch Supine Exercise Name Fig 4 stretch (L side as check for SIJ correction ex) Side bilateral Reps/Minutes 5' Comments Pt needed correction of L ant rot innominate before fawn L hip stretch Piriformis stretch Supine Exercise Name Piriformis stretch with emphysis on minimal stretch Side right Reps/Minutes 3' Comments Much cuing for pt to not overstretch due to s/p MILADY PF Long Holds Supine Exercise Name Long Holds in isolation of substitute muscles Reps/Minutes 5' Sidelying Exercises R Clamshell Sidelying Exercise Name R clamshell/PF (10sec hold=5 lifts) Side right Reps/Minutes 10 PF hold = 5 reps clamshell x 4 Comments Xtra time for training, V cuing for movement of R leg & hold core stable. R sidelie-hip AD Sidelying Exercise Name R sidelie-hipAD/PF, f/b rest during L Clamshell Side right Reps/Minutes 6' Comments much phy & v cuing to keep core stable during ex Self-Care/Home Management Treatment Education Other Education 10' Reviewed & discussed previously issued HEP for clarity and understanding of why and how to perform the stretches/exercise. Discussed urinary incontinence patterns and suggestions given for modification (fluid intake, ex) to improve level of continence. Educated and discussed general vulvar care and genital hygiene. Activities Self-Care/Home Management Activities Issued & reviewed HEP: LE roll in/outs. Issued handout for genital and vulvar care. PT-OP-T Assessment and Plan Start: 03/30/21 08:43 Freq: Status: Active Protocol: Document 04/28/21 11:17 LRN (Rec: 04/28/21 12:22 LRN [id number]) Physical Therapy Assessment Goals Three Impairment Urinary incontinence with a strong cough, sneeze. Short Term Goal (STG) Improve PF strength per Long Hold to 5 sec's and Quick Flicks 5 reps prior to fatigue . (04/28/21: Pt able to hold PF 5 x 1 while trying to isolate from substitue ms). STG Duration 05/15/21 Long-Term Goal (LTG) Pt will have decreased complaints of urinary stress incontinent symptoms with no greater than a small leak in the presence of a strong cough or sneeze. LTG Duration 06/28/21 (04/20/21: MET GOAL) Two Impairment Substitution of abdominal, glut, & hip AD ms to perform a PF contraction. Short Term Goal (STG) Pt will be able to perform a proper PF contraction. (04/14/21: Initiated PF strengthening in isolation of substitute muscles) STG Duration 04/28/21 (04/14/21: Progressed) Exhibit Display Representative Goal (LTG) Pt will be able to perform a proper PF contraction in the absence of abdominal/gluteal/ hip AD muscles. LTG Duration 06/28/21 One Impairment Pt lacks an independent self care HEP. Impairment Decreased hip mobility (Hip IR 50 L, 45 R; ER 65 L, 55 R). Short Term Goal (STG) Pt will be educated in proper transfers (hip hinging) and transfers with use of proper breathing to minimize stress on pelvic floor (PF). STG Duration 04/14/21 (04/20/21: MET GOAL) Long-Term Goal (LTG) Pt will be independent in a self care HEP for PF strengthening and hip mobility ex's. (04/20/21: HEP: added Hip Fig 4 & Piriformis-type stretch) (04/28/21: HEP added LE roll in/out w/PF/deep breathing) LTG Duration 06/28/21 (04/28/21: Progressed) Progress Towards Goals Progress Comments Progressed HEP Assessment Summary Assessment Pt does deep breathing very well, but has difficulty coordinating PF contraction with any other activities ( breathing, leg movements). Pt feeling Quick Flicks are easy , but notes difficulty maintaining a PF long hold contraction. Pt has poor core control when doing L clamshell and better with R clamshell athough mobility is less. Pt may be having changes in muscle tone of PF with hip stretches, causing inconsistency with continence. Physical Therapy Plan Frequency and Duration Frequency of Treatment 1x/Week Plan of Care Start Date 03/30/21 Plan of Care End Date 06/28/21 Next Visit Focus/Plan Next Note Type Treatment Note Next Visit Plan PF/core(TA)/hip strengthening, improve hip mobility (hip ext , ER/IR), Improve abdominal soft tissue (bladder) mobility, STM of abdomen (and urachus). Check hip IR/ER strength, Discuss & educate pt in proper squatting and lifting, and moving in bed using breathwork and core/PF stabilization for proper abdominal pressure system
--- NOTE | 2021-05-15 17:08 | PT.OTN ---
Current Diagnoses Postural kyphosis, site unspecified (05/15/21) Muscle weakness (generalized) (05/15/21) Mixed incontinence (05/15/21) Physical Therapy Treatment Note PT-OP-A Visit Information Start: 03/30/21 08:43 Freq: Status: Active Protocol: Document 05/15/21 10:40 LRN (Rec: 05/15/21 12:31 LRN [id number]) Out-Patient Physical Therapy Visit Information Visit Information Visit Type Treatment Note Visit Start Time 10:40 Visit Stop Time 11:26 Total Visit Minutes 46 Visit Number 5 Evaluation Information Evaluation Date 03/30/21 Precautions Precautions Tape & Latex Allergy, CHF, Controlled High Blood pressure , chronic Atril Fib, R MILADY ( 2011) & bilateral knee replacements, Osteoporosis, neuropathy in feet bilaterally , falls (past summer), & dizziness with turning, with most recent last week. History of ruptured discs. Year ago had 1-2 UTI's a month , no UTI the past month (UTI's over the years). PT-OP-B Current Condition Start: 03/30/21 08:43 Freq: Status: Active Protocol: Document 03/30/21 13:51 LRN (Rec: 03/30/21 15:50 LRN [id number]) Current Condition History of Current Condition Onset Date 10 yrs ago. Current Complaints Urinary leakage all day long, sometimes History of Current Condition Usually have an urge before leaking. Not able to make it to bathroom at night without leaking. Urologist sent her to a kidney specialist because there is nothing wrong with the bladder . Kidney specialist thought it was an anatomical problem. Has Lichen Sclerosis that has caused swelling and thinks that what may be causing irritation to urethra and into vagina causing the leakage. For many years just used a pantiliner, but started using a maxipad for the past 3 yrs. Pt complains of a lot of irritation at area of episotomy. Developmental History Developmental History 10 yrs ago was put on medication for her lichen sclerosis that was too drying, so stopped using. 3 vaginal births with 1 stillborn and stitches due to episotomies x 2. Sent by urologist to learn proper kegel ex. Treatment Goals Patient/Caregiver Goals Pt goal is to perform proper Kegel, gain total control of bladder so she doesn't have to wear pads. Decrease use of maxi pad to pantiliner 2x in 24 hours (1 day, 1 night), Prior Functional Status Baseline Function- ADL's Independent Baseline Function- Mobility Independent Baseline Function- Other Pantiliner 2x/day (1 night, 1 day) Sometimes small leak with coughing or sneezing. Current Functional Impairments (Reported) Functional Limitations- Other Leaks with couging or sneezing (sometimes continent if sitting). Uses 2-4 maxipads during day and 2 at night Personal Factors Other Personal Factors That May Effect Heart disease, joint Therapy/Recovery replacements, dizziness/fall risk, Lichen sclerosis of external pelvic floor for estradol cream (generic of premarin). PT-OP-C Subjective Start: 03/30/21 08:43 Freq: Status: Active Protocol: Document 05/15/21 10:40 LRN (Rec: 05/15/21 12:31 LRN [id number]) OP-PT Subjective Patient Comments Patient Comments Swelling from Lichen's Sclerosis; therefore having increased Urinary inconitinence and her urinary stream is slower. Has been using cream and helps. Feels she hasn't improved much, but does think she has improved in isolating her PF contractions . PT-OP-G Mobility & Gait Start: 03/30/21 16:09 Freq: Status: Active Protocol: Document 03/30/21 13:51 LRN (Rec: 03/30/21 16:10 LRN [id number]) OP Gait Assessment Gait Gait Assistance Required: Independent Assistive Devices Assistive Device None,Straight Cane Comments Gait Comments Pt ambulates with a forward bent posture (hips ~10 deg's flexion) and when using a straight cane, pt uses on the left side. PT-OP-I Pelvic Floor Start: 03/30/21 08:43 Freq: Status: Active Protocol: Document 04/14/21 11:23 LRN (Rec: 04/14/21 12:27 LRN [id number]) Pelvic Floor Assessment Contraction Ability Voluntary Contraction Moderate Voluntary Relaxation Moderate Manual Muscle Testing Left 3 Manual Muscle Testing Right 2 Manual Muscle Testing Anterior 2 Manual Muscle Testing Posterior 3 Comments Pelvic Floor Comments PF Muscle contractions are with substitution muscles. Muscle Endurance: Pt able to hold 10 secs on L side, not R side. Quick Contractions: 0 palpable superficial PF ms contraction. Pt able to perform quick contractions of deep muscles. PT-OP-J Posture/Palpation/Skin Start: 03/30/21 08:43 Freq: Status: Active Protocol: Document 03/30/21 13:51 LRN (Rec: 03/30/21 15:50 LRN [id number]) Posture Evaluation Position Standing T-Spine Posture Rotation Right L-Spine Posture Shifted Right Shoulder Posture (L) Elevated,(R) Elevated Weight Distribution Weight Shifted Left Hip Posture (L) Internally Rotated,(R) Internally Rotated Knee Posture (R) Excess Flexion Comments Posture Comments Standing with legs: L hip is low, pevis rotates R. PT-OP-K Range of Motion Start: 03/30/21 08:43 Freq: Status: Active Protocol: Document 03/30/21 13:51 LRN (Rec: 03/30/21 15:50 LRN [id number]) Lumbar Spine Range of Motion Lumbar Spine Active Degrees Testing Position Standing Flexion 90 Extension 5 Rotation Left 20 Rotation Right 25 Lateral Flexion Left 5 Lateral Flexion Right 3 ROM Limitations Soft Tissue Tightness Comments Trunk flexion is with 90 deg's hip flexion; therefore lumbar flex is 0 deg's. Trunk extension is with 5 deg' s hip extension; therefore lumbar ext is 0 deg's. Hip Goniometric Range of Motion Hip Right Passive Testing Position Supine Internal Rotation 45 External Rotation 55 Comments Extension lacks 15 deg's to neutral Left Passive Testing Position Supine Internal Rotation 50 External Rotation 65 Comments Extension lacks 15 deg's to neutral PT-OP-M Strength Start: 03/30/21 08:43 Freq: Status: Active Protocol: Document 03/30/21 13:51 LRN (Rec: 03/30/21 15:50 LRN [id number]) Trunk Strength Trunk Manual Muscle Testing Core Stabilization Lacks core stability with trunk extensors, rotators, and lateral flexors. Hip Strength Hip Manual Muscle Testing Right Flexion (L2) 5 Normal Abduction 3 Fair Adduction 2- Poor- External Rotation 2+ Poor+ Internal Rotation 4+ Good+ Comments Extension: Lacks ext against gravity strength due to mobility limitation and back pain. Left Flexion (L2) 5 Normal Abduction 2 Poor Adduction 5 Normal External Rotation 3 Fair Internal Rotation 4+ Good+ Comments Extension: Lacks ext against gravity strength due to mobility limitation and back pain. PT-OP-Q Treatments Start: 03/30/21 08:43 Freq: Status: Active Protocol: Document 05/15/21 10:40 LRN (Rec: 05/15/21 12:31 LRN [id number]) Therapeutic Exercises Sidelying Exercises R hip IR Sidelying Exercise Name R hip IR (lifting R foot) with PF contraction Side right Reps/Minutes 10 x 6 Quick Flicks R Clamshell Sidelying Exercise Name R clamshell/PF (10sec hold=5 lifts) Side right Reps/Minutes 10 PF hold = 5 reps clamshell (f/b 5 rest) x 5 Comments Xtra time for training, V cuing for movement of R leg & hold core stable. R sidelie-hip AD Sidelying Exercise Name R sidelie-hipAD/PF, f/b rest during L Clamshell Side right Reps/Minutes 6' Comments much phy & v cuing to keep core stable during ex Sitting Exercises Sit to stand Sitting Exercise Name Reviewed for proper breathing and PF contractions Reps/Minutes 3' Other Exercises Stairs w/PF & posturing Other Exercise Name Walkin) Proper posture with PF Quick, then Long hold contractions Reps/Minutes 8' Comments Physical cuing for proper posture needed throughout exercise. Walking w/PF & posturing Other Exercise Name Stair ambulation: 1) With PF Quick, then Long hold contractions Reps/Minutes 8' Comments V. cuing for coordination of activity throughout exercise. Self-Care/Home Management Treatment Education Patient Education Body Mechanics,Home Exercise Program,Posture Other Education Educated and discussed Proper body mechanics with issuance and review of home handout. Activities Self-Care/Home Management Activities Issued & reviewed HEP: Clamshell with PF contractions Long HOld and Quick Flicks. ISsued & reviewed Functional Pelvic Brace ex's walking & stair stepping. PT-OP-T Assessment and Plan Start: 03/30/21 08:43 Freq: Status: Active Protocol: Document 05/15/21 10:40 LRN (Rec: 05/15/21 12:31 LRN [id number]) Physical Therapy Assessment Goals Three Impairment Urinary incontinence with a strong cough, sneeze. Short Term Goal (STG) Improve PF strength per Long Hold to 5 sec's and Quick Flicks 5 reps prior to fatigue . (04/28/21: Pt able to hold PF 5 x 1 while trying to isolate from substitue ms). STG Duration 05/15/21 Retail Experience Specialist Goal (LTG) Pt will have decreased complaints of urinary stress incontinent symptoms with no greater than a small leak in the presence of a strong cough or sneeze. (05/15/21: Increased UI due to Lichen's Sclerosis outbreak at [facility]). LTG Duration 06/28/21 (04/20/21: MET GOAL) Two Impairment Substitution of abdominal, glut, & hip AD ms to perform a PF contraction. Short Term Goal (STG) Pt will be able to perform a proper PF contraction. (04/14/21: Initiated PF strengthening in isolation of substitute muscles) STG Duration 04/28/21 (04/14/21: Progressed) [facility] Goal (LTG) Pt will be able to perform a proper PF contraction in the absence of abdominal/gluteal/ hip AD muscles. LTG Duration 06/28/21 One Impairment Pt lacks an independent self care HEP. Impairment Decreased hip mobility (Hip IR 50 L, 45 R; ER 65 L, 55 R). Short Term Goal (STG) Pt will be educated in proper transfers (hip hinging) and transfers with use of proper breathing to minimize stress on pelvic floor (PF). STG Duration 04/14/21 (04/20/21: MET GOAL) Retail Experience Specialist Goal (LTG) Pt will be independent in a self care HEP for PF strengthening and hip mobility ex's. (04/20/21: HEP: added Hip Fig 4 & Piriformis-type stretch) (04/28/21: HEP added LE roll in/out w/PF/deep breathing) (05/15/21: Added Clamshell) LTG Duration 06/28/21 (04/28/21: Progressed) Assessment Summary Assessment No change with Urinary incontinence due to swelling of labia and possibly incomplete empying on voiding. Pt is not able to maintain a PF contraction with stair ambulation, but feels she is able to hold it with walking when physically cued for proper posturing and v cued for PF contractions. Physical Therapy Plan Frequency and Duration Frequency of Treatment 1x/Week Plan of Care Start Date 03/30/21 Plan of Care End Date 06/28/21 Next Visit Focus/Plan Next Note Type Treatment Note Next Visit Plan Cont to work on PF strengthening with daily activities of walking & stairs . PF/core(TA)/hip strengthening, improve hip mobility (hip ext , ER/IR), Check hip IR/ER strength and mobility, Assess if pt can do islolated PF contraction, Add hip IR strengthening HEP if needed. Improve abdominal soft tissue (bladder) mobility, STM of abdomen (and urachus). Assess level of continence. Review & educate pt in proper squatting and lifting, and moving in bed using breathwork and core/PF stabilization for proper abdominal pressure system
--- NOTE | 2021-05-29 11:59 | PT.OTN ---
Current Diagnoses Postural kyphosis, site unspecified (05/29/21) Muscle weakness (generalized) (05/29/21) Mixed incontinence (05/29/21) Physical Therapy Treatment Note PT-OP-A Visit Information Start: 03/30/21 08:43 Freq: Status: Active Protocol: Document 05/29/21 10:39 LRN (Rec: 05/29/21 11:26 LRN [id number]) Out-Patient Physical Therapy Visit Information Visit Information Visit Type Treatment Note Visit Start Time 10:49 Visit Stop Time 11:27 Total Visit Minutes 38 Visit Number 6 Evaluation Information Evaluation Date 03/30/21 Precautions Precautions Tape & Latex Allergy, CHF, Controlled High Blood pressure , chronic Atril Fib, R MILADY ( 2011) & bilateral knee replacements, Osteoporosis, neuropathy in feet bilaterally , falls (past summer), & dizziness with turning, with most recent last week. History of ruptured discs. Year ago had 1-2 UTI's a month , no UTI the past month (UTI's over the years). PT-OP-B Current Condition Start: 03/30/21 08:43 Freq: Status: Active Protocol: Document 03/30/21 13:51 LRN (Rec: 03/30/21 15:50 LRN [id number]) Current Condition History of Current Condition Onset Date 10 yrs ago. Current Complaints Urinary leakage all day long, sometimes History of Current Condition Usually have an urge before leaking. Not able to make it to bathroom at night without leaking. Urologist sent her to a kidney specialist because there is nothing wrong with the bladder . Kidney specialist thought it was an anatomical problem. Has Lichen Sclerosis that has caused swelling and thinks that what may be causing irritation to urethra and into vagina causing the leakage. For many years just used a pantiliner, but started using a maxipad for the past 3 yrs. Pt complains of a lot of irritation at area of episotomy. Developmental History Developmental History 10 yrs ago was put on medication for her lichen sclerosis that was too drying, so stopped using. 3 vaginal births with 1 stillborn and stitches due to episotomies x 2. Sent by urologist to learn proper kegel ex. Treatment Goals Patient/Caregiver Goals Pt goal is to perform proper Kegel, gain total control of bladder so she doesn't have to wear pads. Decrease use of maxi pad to pantiliner 2x in 24 hours (1 day, 1 night), Prior Functional Status Baseline Function- ADL's Independent Baseline Function- Mobility Independent Baseline Function- Other Pantiliner 2x/day (1 night, 1 day) Sometimes small leak with coughing or sneezing. Current Functional Impairments (Reported) Functional Limitations- Other Leaks with couging or sneezing (sometimes continent if sitting). Uses 2-4 maxipads during day and 2 at night Personal Factors Other Personal Factors That May Effect Heart disease, joint Therapy/Recovery replacements, dizziness/fall risk, Lichen sclerosis of external pelvic floor for estradol cream (generic of premarin). PT-OP-C Subjective Start: 03/30/21 08:43 Freq: Status: Active Protocol: Document 05/29/21 10:39 LRN (Rec: 05/29/21 11:26 LRN [id number]) OP-PT Subjective Patient Comments Patient Comments Discouraged because there are some episodes that she is not able to control her urinary incontinence. Lichen's Sclerosis isn't as severe and thinks she is towards the end of it. UI is getting better with improvement in Lichens Sclerosis. Back to getting up once a night. When doing PF contractions, she is able to isolate, but stairs is just not good. Has been working out in the garden, pruining and cleaning, bending up/down. PT-OP-G Mobility & Gait Start: 03/30/21 16:09 Freq: Status: Active Protocol: Document 03/30/21 13:51 LRN (Rec: 03/30/21 16:10 LRN [id number]) OP Gait Assessment Gait Gait Assistance Required: Independent Assistive Devices Assistive Device None,Straight Cane Comments Gait Comments Pt ambulates with a forward bent posture (hips ~10 deg's flexion) and when using a straight cane, pt uses on the left side. PT-OP-I Pelvic Floor Start: 03/30/21 08:43 Freq: Status: Active Protocol: Document 04/14/21 11:23 LRN (Rec: 04/14/21 12:27 LRN [id number]) Pelvic Floor Assessment Contraction Ability Voluntary Contraction Moderate Voluntary Relaxation Moderate Manual Muscle Testing Left 3 Manual Muscle Testing Right 2 Manual Muscle Testing Anterior 2 Manual Muscle Testing Posterior 3 Comments Pelvic Floor Comments PF Muscle contractions are with substitution muscles. Muscle Endurance: Pt able to hold 10 secs on L side, not R side. Quick Contractions: 0 palpable superficial PF ms contraction. Pt able to perform quick contractions of deep muscles. PT-OP-J Posture/Palpation/Skin Start: 03/30/21 08:43 Freq: Status: Active Protocol: Document 03/30/21 13:51 LRN (Rec: 03/30/21 15:50 LRN [id number]) Posture Evaluation Position Standing T-Spine Posture Rotation Right L-Spine Posture Shifted Right Shoulder Posture (L) Elevated,(R) Elevated Weight Distribution Weight Shifted Left Hip Posture (L) Internally Rotated,(R) Internally Rotated Knee Posture (R) Excess Flexion Comments Posture Comments Standing with legs: L hip is low, pevis rotates R. PT-OP-K Range of Motion Start: 03/30/21 08:43 Freq: Status: Active Protocol: Document 05/29/21 10:39 LRN (Rec: 05/29/21 11:26 LRN [id number]) Hip Goniometric Range of Motion Hip Right Passive Testing Position Supine Internal Rotation 55 External Rotation 65 Left Passive Testing Position Supine Internal Rotation 50 External Rotation 65 PT-OP-M Strength Start: 03/30/21 08:43 Freq: Status: Active Protocol: Document 05/29/21 10:39 LRN (Rec: 05/29/21 11:26 LRN [id number]) Hip Strength Hip Manual Muscle Testing Right External Rotation 3 Fair Internal Rotation 4+ Good+ Left External Rotation 3+ Fair+ Internal Rotation 4+ Good+ PT-OP-Q Treatments Start: 03/30/21 08:43 Freq: Status: Active Protocol: Document 05/29/21 10:39 LRN (Rec: 05/29/21 11:26 LRN [id number]) Therapeutic Exercises Supine Exercises Bridging w/TBall Supine Exercise Name PF/Bridge on TBall Reps/Minutes 15x Comments Extra time for breathing training. Noe knee LTR rolls w/TBall Supine Exercise Name PF/Noe knee LTR w/Tball Side bilateral Reps/Minutes 5' Comments Much extra time taken for educ in proper breathing pattern. Noe knee flex w/TBall Supine Exercise Name PF/Noe knee flex w/Tball roll Reps/Minutes 5x 2 Fig 4 stretch Supine Exercise Name Fig 4 stretch (L side as check for SIJ correction ex) Side bilateral Reps/Minutes 5' Comments PROM taken Piriformis stretch Supine Exercise Name Piriformis stretch with emphysis on minimal stretch Side right Reps/Minutes 3' Comments Much cuing to not overstretch due to s/p MILADY, PROM taken Sidelying Exercises R Clamshell Sidelying Exercise Name Noe Clamshell Side bilateral Reps/Minutes 10 PF hold = 5 reps clamshell (f/b 5 rest) x 5 Comments Extra time to help get greater lift noe. Sitting Exercises Hip ER/IR Sitting Exercise Name Active hip ER/IR with isometric hold Side bilateral Reps/Minutes 3' Comments Included MMT Sit to stand Sitting Exercise Name Reviewed for proper breathing and PF contractions Reps/Minutes 3' Standing Exercises PF/Forward Lunges Standing Exercise Name PF/Forward Lunges/breathing Reps/Minutes 10x 2 each Comments PF x 5 reps/Rest x 5 reps. Extra time for finding safe & proper position. Trunk SB Standing Exercise Name PF/Trunk SB leaning against wall Reps/Minutes 3x 4 Comments Holding PF 3x/Rest 3x. PF/Hip AB Standing Exercise Name PF contraction w/Hip AB Side bilateral Reps/Minutes 6x 2 each Comments Holding onto sink for stability. PT-OP-T Assessment and Plan Start: 03/30/21 08:43 Freq: Status: Active Protocol: Document 05/29/21 10:39 LRN (Rec: 05/29/21 11:26 LRN [id number]) Physical Therapy Assessment Goals Three Impairment Urinary incontinence with a strong cough, sneeze. Short Term Goal (STG) Improve PF strength per Long Hold to 5 sec's and Quick Flicks 5 reps prior to fatigue . (04/28/21: Pt able to hold PF 5 x 1 while trying to isolate from substitue ms). STG Duration 05/15/21 [facility] Goal (LTG) Pt will have decreased complaints of urinary stress incontinent symptoms with no greater than a small leak in the presence of a strong cough or sneeze. (05/15/21: Increased UI due to Lichen's Sclerosis outbreak at [facility]). LTG Duration 06/28/21 (04/20/21: MET GOAL) Two Impairment Substitution of abdominal, glut, & hip AD ms to perform a PF contraction. Short Term Goal (STG) Pt will be able to perform a proper PF contraction. (04/14/21: Initiated PF strengthening in isolation of substitute muscles) STG Duration 04/28/21 (04/14/21: Progressed) [facility] Goal (LTG) Pt will be able to perform a proper PF contraction in the absence of abdominal/gluteal/ hip AD muscles. LTG Duration 06/28/21 One Impairment Pt lacks an independent self care HEP. Impairment Decreased hip mobility (Hip IR 50 L, 45 R; ER 65 L, 55 R). Short Term Goal (STG) Pt will be educated in proper transfers (hip hinging) and transfers with use of proper breathing to minimize stress on pelvic floor (PF). STG Duration 04/14/21 (04/20/21: MET GOAL) [facility] Goal (LTG) Pt will be independent in a self care HEP for PF strengthening and hip mobility ex's. (04/20/21: HEP: added Hip Fig 4 & Piriformis-type stretch) (04/28/21: HEP added LE roll in/out w/PF/deep breathing) (05/15/21: Added Clamshell) LTG Duration 06/28/21 (04/28/21: Progressed) Assessment Summary Assessment Pt is tight in L hip IR (50L, 55R). Hip ER PROM is symmetrical and within norm of 65 deg's. She has weakness with hip ER (3/5R, 3+/5L), IR is 4+/5 bilaterally. Appears to have a good understanding of how to incorporate PF strengthening with her LB ex's , good understanding of her HEP, and proper form and coordination of breathing/PF contraction/proper body mechanics with sit<>stand transfer/squat. Pt needing more time to strengthen due to active Lichen's Sclerosis; therefore will change therapy to every other week. Physical Therapy Plan Frequency and Duration Frequency of Treatment Every Other Week Plan of Care Start Date 03/30/21 Plan of Care End Date 06/28/21 Next Visit Focus/Plan Next Note Type Treatment Note Next Visit Plan Assess level of continence when Lichen's Sclerosis is not in flare up, hip ER strength, if pt can do islolated PF contraction, and PF contractions with fwd lunge/ hip AB (add lateral lunge). POC: Improve hip ER strength, Review & educate pt in proper lifting, and moving in bed using breathwork and core/PF stabilization for proper abdominal pressure system PF/core(TA)/hip strengthening, add hip ext mobility and improve L hip IR mobilty, Improve abdominal soft tissue (bladder) mobility, STM of abdomen (and urachus).
--- NOTE | 2021-06-12 11:40 | PT-OP ANOTE ---
Pt cancelled due to bladder infection. She has been started on a 60 day antibiotics program and is feeling better with less leakage. Pt wants to come at next appointment to discuss more of what she can do to improve.
--- NOTE | 2021-06-26 15:16 | PT.OTN ---
Current Diagnoses Postural kyphosis, site unspecified (06/26/21) Muscle weakness (generalized) (06/26/21) Mixed incontinence (06/26/21) Physical Therapy Treatment Note PT-OP-A Visit Information Start: 03/30/21 08:43 Freq: Status: Active Protocol: Document 06/26/21 10:29 LRN (Rec: 06/26/21 12:37 LRN [id number]) Out-Patient Physical Therapy Visit Information Visit Information Visit Type Progress Note Visit Start Time 10:29 Visit Stop Time 11:15 Total Visit Minutes 46 Visit Number 7 Evaluation Information Evaluation Date 03/30/21 Precautions Precautions Tape & Latex Allergy, CHF, Controlled High Blood pressure , chronic Atril Fib, R MILADY ( 2011) & bilateral knee replacements, Osteoporosis, neuropathy in feet bilaterally , falls (past summer), & dizziness with turning, with most recent last week. History of ruptured discs. Year ago had 1-2 UTI's a month , no UTI the past month (UTI's over the years). PT-OP-B Current Condition Start: 03/30/21 08:43 Freq: Status: Active Protocol: Document 03/30/21 13:51 LRN (Rec: 03/30/21 15:50 LRN [id number]) Current Condition History of Current Condition Onset Date 10 yrs ago. Current Complaints Urinary leakage all day long, sometimes History of Current Condition Usually have an urge before leaking. Not able to make it to bathroom at night without leaking. Urologist sent her to a kidney specialist because there is nothing wrong with the bladder . Kidney specialist thought it was an anatomical problem. Has Lichen Sclerosis that has caused swelling and thinks that what may be causing irritation to urethra and into vagina causing the leakage. For many years just used a pantiliner, but started using a maxipad for the past 3 yrs. Pt complains of a lot of irritation at area of episotomy. Developmental History Developmental History 10 yrs ago was put on medication for her lichen sclerosis that was too drying, so stopped using. 3 vaginal births with 1 stillborn and stitches due to episotomies x 2. Sent by urologist to learn proper kegel ex. Treatment Goals Patient/Caregiver Goals Pt goal is to perform proper Kegel, gain total control of bladder so she doesn't have to wear pads. Decrease use of maxi pad to pantiliner 2x in 24 hours (1 day, 1 night), Prior Functional Status Baseline Function- ADL's Independent Baseline Function- Mobility Independent Baseline Function- Other Pantiliner 2x/day (1 night, 1 day) Sometimes small leak with coughing or sneezing. Current Functional Impairments (Reported) Functional Limitations- Other Leaks with couging or sneezing (sometimes continent if sitting). Uses 2-4 maxipads during day and 2 at night Personal Factors Other Personal Factors That May Effect Heart disease, joint Therapy/Recovery replacements, dizziness/fall risk, Lichen sclerosis of external pelvic floor for estradol cream (generic of premarin). PT-OP-C Subjective Start: 03/30/21 08:43 Freq: Status: Active Protocol: Document 06/26/21 10:29 LRN (Rec: 06/26/21 12:37 LRN [id number]) OP-PT Subjective Patient Comments Patient Comments Was allergic to the antibiotics, just left urine sample 3 days ago. Thinks she still has urinary bladder infection. Has uncontrolled urinary leakage. Lichen Sclerosis has really calmed down. States she doesn't know if she still has an infection . PT-OP-G Mobility & Gait Start: 03/30/21 16:09 Freq: Status: Active Protocol: Document 03/30/21 13:51 LRN (Rec: 03/30/21 16:10 LRN [id number]) OP Gait Assessment Gait Gait Assistance Required: Independent Assistive Devices Assistive Device None,Straight Cane Comments Gait Comments Pt ambulates with a forward bent posture (hips ~10 deg's flexion) and when using a straight cane, pt uses on the left side. PT-OP-I Pelvic Floor Start: 03/30/21 08:43 Freq: Status: Active Protocol: Document 04/14/21 11:23 LRN (Rec: 04/14/21 12:27 LRN [id number]) Pelvic Floor Assessment Contraction Ability Voluntary Contraction Moderate Voluntary Relaxation Moderate Manual Muscle Testing Left 3 Manual Muscle Testing Right 2 Manual Muscle Testing Anterior 2 Manual Muscle Testing Posterior 3 Comments Pelvic Floor Comments PF Muscle contractions are with substitution muscles. Muscle Endurance: Pt able to hold 10 secs on L side, not R side. Quick Contractions: 0 palpable superficial PF ms contraction. Pt able to perform quick contractions of deep muscles. PT-OP-J Posture/Palpation/Skin Start: 03/30/21 08:43 Freq: Status: Active Protocol: Document 03/30/21 13:51 LRN (Rec: 03/30/21 15:50 LRN [id number]) Posture Evaluation Position Standing T-Spine Posture Rotation Right L-Spine Posture Shifted Right Shoulder Posture (L) Elevated,(R) Elevated Weight Distribution Weight Shifted Left Hip Posture (L) Internally Rotated,(R) Internally Rotated Knee Posture (R) Excess Flexion Comments Posture Comments Standing with legs: L hip is low, pevis rotates R. PT-OP-K Range of Motion Start: 03/30/21 08:43 Freq: Status: Active Protocol: Document 05/29/21 10:39 LRN (Rec: 05/29/21 11:26 LRN [id number]) Hip Goniometric Range of Motion Hip Right Passive Testing Position Supine Internal Rotation 55 External Rotation 65 Left Passive Testing Position Supine Internal Rotation 50 External Rotation 65 PT-OP-M Strength Start: 03/30/21 08:43 Freq: Status: Active Protocol: Document 05/29/21 10:39 LRN (Rec: 05/29/21 11:26 LRN [id number]) Hip Strength Hip Manual Muscle Testing Right External Rotation 3 Fair Internal Rotation 4+ Good+ Left External Rotation 3+ Fair+ Internal Rotation 4+ Good+ PT-OP-Q Treatments Start: 03/30/21 08:43 Freq: Status: Active Protocol: Document 06/26/21 10:29 LRN (Rec: 06/26/21 12:37 LRN [id number]) Therapeutic Exercises Supine Exercises Bowel Massage Supine Exercise Name Bowel Massage Reps/Minutes 3' PF Long Holds Supine Exercise Name PF Long Holds during transfers and when mobilizing. Reps/Minutes 5' Comments Pt not able to maintain Long Hold contraction in supine PF Quick Flicks Supine Exercise Name PF Quick Flicks Reps/Minutes 4' Comments Quick Flick PF contraction visible with substitute ms. Other Exercises PF contraction with transfers Other Exercise Name PF contraction w/proper breathing w/transfers. Reps/Minutes 10' Comments Much quing and repetitions for pt to coordinate transfers w/ PF/breathwork Self-Care/Home Management Treatment Education Other Education Discussed at length other factors that might lead to urinary incontinence in addition to her concerns of bladder infection and Lichens Sclerosis (clothing tightness, breath holding, decreased hip mobility, constipation, factors related to constipation). Discussed bowel program and modifications to BM for greater ease in voiding ( fluids, dietary and squatty potty). Educated pt in use of breathing to help with BM's to avoid valsalva maneuver when constipated. Activities Self-Care/Home Management Activities Re-issued bladder diary for pt to track her voiding pattern. Discussed method to help determine when pt is leaking urine (switching of order of pad on panty). Reviewed recommendation of fluid intake , wearing less restrictive clothing and use of squatty potty. Issued & reviewed Bowel Program with I/S for pt to check with her physician before adding Magnesium or Vit C to her diet. PT-OP-T Assessment and Plan Start: 03/30/21 08:43 Freq: Status: Active Protocol: Document 06/26/21 10:29 LRN (Rec: 06/26/21 12:37 LRN [id number]) Physical Therapy Assessment Rehab Potential Rehabilitation Potential Good Evaluation Complexity Number of Personal Factors/Comorbidities 3 or More Number of Body Systems Impaired 4 or More Clinical Presentation at Evaluation Evolving Impairments Impairments Activity Tolerance,Pain, Posture,ROM,Soft Tissue Mobility,Strength Goals Four Impairment Urinary leakage in the presence of a strong urge. Short Term Goal (STG) Pt will be educated in urinary delay technique. STG Duration 04/07/21 (04/14/21: MET GOAL) Organ Pipe Finisher Goal (LTG) Pt will be able to maintain urinary continence in the presence of a strong urge and decrease need for maxi-pads to use of pantiliner 2x/day in 24 hours (max 1 during the night). (04/20/21: At night and day, wearing a midi-pad - level 4) LTG Duration 09/24/21 (04/20/21: Previously met, incontinence return due to comorbidies) Three Impairment Urinary incontinence with a strong cough, sneeze. Short Term Goal (STG) Improve PF strength per Long Hold to 5 sec's and Quick Flicks 5 reps prior to fatigue . (04/28/21: Pt able to hold PF 5 x 1 while trying to isolate from substitue ms). STG Duration 08/25/21 Organ Pipe Finisher Goal (LTG) Pt will have decreased complaints of urinary stress incontinent symptoms with no greater than a small leak in the presence of a strong cough or sneeze. (05/15/21: Increased UI due to Lichen's Sclerosis outbreak at [facility]). LTG Duration 06/28/21 (04/20/21: MET GOAL) Two Impairment Substitution of abdominal, glut, & hip AD ms to perform a PF contraction. Short Term Goal (STG) Pt will be able to perform a proper PF contraction. (04/14/21: Initiated PF strengthening in isolation of substitute muscles) STG Duration 08/25/21 (04/14/21: Progressed ) [facility]pc Goal (LTG) Pt will be able to perform a proper PF contraction in the absence of abdominal/gluteal/ hip AD muscles. LTG Duration 09/24/21 One Impairment Pt lacks an independent self care HEP. Impairment Decreased hip mobility (Hip IR 50 L, 45 R; ER 65 L, 55 R). Short Term Goal (STG) Pt will be educated in proper transfers (hip hinging) and transfers with use of proper breathing to minimize stress on pelvic floor (PF). STG Duration 04/14/21 (04/20/21: MET GOAL) Fpc Goal (LTG) Pt will be independent in a self care HEP for PF strengthening and hip mobility ex's. (04/20/21: HEP: added Hip Fig 4 & Piriformis-type stretch) (04/28/21: HEP added LE roll in/out w/PF/deep breathing) (05/15/21: Added Clamshell) LTG Duration 09/24/21 (04/28/21: Progressed) Progress Towards Goals Progress Towards Goals Slow Progress due to Medical Issues Assessment Summary Assessment Pt has made very slow progress with a set back due to the flare up of her lichen sclerosis and bladder infection. Pt is concerned of bladder infection still and of fragile PF skin that might result in tearing with assessments; therefore held internal palpation assessment of PF tightness & strength. Visible externally, I was able to see a posterior PF lift with a contraction, but no Cliteral nod; therefore indicating weakness of the anterior PF. The pt is very red at the entry of her vaginal canal and expresses tenderness in the area. The pt would benefit from assessment for possible use of Estrodial cream to improve the PF tissue health and education in use of past creams issued to her (steroid) that she has restarted taking . There is concern of tearing and bleeding of the skin with internal assessment and external palpation of her PF. The pt was initially started as 1x/week therapy, but switched to every other week due to her comorbidities ( onset of her lichen's sclerosis flare up and bladder infection). I recommend continuation of skilled phyiscal therapy in the future with return to therapy 1x/ week once she has recovered from her other medical concerns. The pt will benefit from continued skilled physical therapy to work towards achieving the above stated goals. Physical Therapy Plan Frequency and Duration Frequency of Treatment 1x/Week Plan of Care Start Date 06/26/21 Plan of Care End Date 09/24/21 Therapeutic Interventions Therapeutic Interventions Home Exercise Program,Manual Therapy,Neuromuscular Re- education,Patient/Caregiver Education,Self-Care/Home Management,Sensory Integration ,Therapeutic Activities, Therapeutic Exercises Modalities Cold Pack/Ice Massage,Hot Packs Next Visit Focus/Plan Next Note Type Treatment Note Next Visit Plan Review bowel massage and adherence to bowel program. Assess hip ER strength, if pt can do islolated PF contraction, and PF contractions with fwd lunge/ hip AB (add lateral lunge). POC: Improve hip ER strength, Review & educate pt in proper lifting, and moving in bed using breathwork and core/PF stabilization for proper abdominal pressure system PF/core(TA)/hip strengthening, add hip ext mobility and improve L hip IR mobilty, Improve abdominal soft tissue (bladder) mobility, STM of abdomen (and urachus).
--- NOTE | 2021-07-10 17:47 | PT.OTN ---
Current Diagnoses Postural kyphosis, site unspecified (07/10/21) Muscle weakness (generalized) (07/10/21) Mixed incontinence (07/10/21) Physical Therapy Treatment Note PT-OP-A Visit Information Start: 03/30/21 08:43 Freq: Status: Active Protocol: Document 07/10/21 10:35 LRN (Rec: 07/10/21 11:20 LRN [id number]) Out-Patient Physical Therapy Visit Information Visit Information Visit Type Treatment Note Visit Start Time 10:35 Visit Stop Time 11:13 Total Visit Minutes 38 Visit Number 8 Evaluation Information Evaluation Date 03/30/21 Precautions Precautions Tape & Latex Allergy, CHF, Controlled High Blood pressure , chronic Atril Fib, R MILADY ( 2011) & bilateral knee replacements, Osteoporosis, neuropathy in feet bilaterally , falls (past summer), & dizziness with turning, with most recent last week. History of ruptured discs. Year ago had 1-2 UTI's a month , no UTI the past month (UTI's over the years). PT-OP-B Current Condition Start: 03/30/21 08:43 Freq: Status: Active Protocol: Document 03/30/21 13:51 LRN (Rec: 03/30/21 15:50 LRN [id number]) Current Condition History of Current Condition Onset Date 10 yrs ago. Current Complaints Urinary leakage all day long, sometimes History of Current Condition Usually have an urge before leaking. Not able to make it to bathroom at night without leaking. Urologist sent her to a kidney specialist because there is nothing wrong with the bladder . Kidney specialist thought it was an anatomical problem. Has Lichen Sclerosis that has caused swelling and thinks that what may be causing irritation to urethra and into vagina causing the leakage. For many years just used a pantiliner, but started using a maxipad for the past 3 yrs. Pt complains of a lot of irritation at area of episotomy. Developmental History Developmental History 10 yrs ago was put on medication for her lichen sclerosis that was too drying, so stopped using. 3 vaginal births with 1 stillborn and stitches due to episotomies x 2. Sent by urologist to learn proper kegel ex. Treatment Goals Patient/Caregiver Goals Pt goal is to perform proper Kegel, gain total control of bladder so she doesn't have to wear pads. Decrease use of maxi pad to pantiliner 2x in 24 hours (1 day, 1 night), Prior Functional Status Baseline Function- ADL's Independent Baseline Function- Mobility Independent Baseline Function- Other Pantiliner 2x/day (1 night, 1 day) Sometimes small leak with coughing or sneezing. Current Functional Impairments (Reported) Functional Limitations- Other Leaks with couging or sneezing (sometimes continent if sitting). Uses 2-4 maxipads during day and 2 at night Personal Factors Other Personal Factors That May Effect Heart disease, joint Therapy/Recovery replacements, dizziness/fall risk, Lichen sclerosis of external pelvic floor for estradol cream (generic of premarin). PT-OP-C Subjective Start: 03/30/21 08:43 Freq: Status: Active Protocol: Document 07/10/21 10:35 LRN (Rec: 07/10/21 11:20 LRN [id number]) OP-PT Subjective Patient Comments Patient Comments Forgot bladder diary, buy hasn 't been doing very well. but has another infection learned this morning. Feels her control is better with ex's. Cans sleep sometimes all throught the night without waking. For a while was only using 2-3 pads a day and sometimes all day without leaking. Having bowel movement 1x/day. PT-OP-G Mobility & Gait Start: 03/30/21 16:09 Freq: Status: Active Protocol: Document 03/30/21 13:51 LRN (Rec: 03/30/21 16:10 LRN [id number]) OP Gait Assessment Gait Gait Assistance Required: Independent Assistive Devices Assistive Device None,Straight Cane Comments Gait Comments Pt ambulates with a forward bent posture (hips ~10 deg's flexion) and when using a straight cane, pt uses on the left side. PT-OP-I Pelvic Floor Start: 03/30/21 08:43 Freq: Status: Active Protocol: Document 04/14/21 11:23 LRN (Rec: 04/14/21 12:27 LRN [id number]) Pelvic Floor Assessment Contraction Ability Voluntary Contraction Moderate Voluntary Relaxation Moderate Manual Muscle Testing Left 3 Manual Muscle Testing Right 2 Manual Muscle Testing Anterior 2 Manual Muscle Testing Posterior 3 Comments Pelvic Floor Comments PF Muscle contractions are with substitution muscles. Muscle Endurance: Pt able to hold 10 secs on L side, not R side. Quick Contractions: 0 palpable superficial PF ms contraction. Pt able to perform quick contractions of deep muscles. PT-OP-J Posture/Palpation/Skin Start: 03/30/21 08:43 Freq: Status: Active Protocol: Document 03/30/21 13:51 LRN (Rec: 03/30/21 15:50 LRN [id number]) Posture Evaluation Position Standing T-Spine Posture Rotation Right L-Spine Posture Shifted Right Shoulder Posture (L) Elevated,(R) Elevated Weight Distribution Weight Shifted Left Hip Posture (L) Internally Rotated,(R) Internally Rotated Knee Posture (R) Excess Flexion Comments Posture Comments Standing with legs: L hip is low, pevis rotates R. PT-OP-K Range of Motion Start: 03/30/21 08:43 Freq: Status: Active Protocol: Document 05/29/21 10:39 LRN (Rec: 05/29/21 11:26 LRN [id number]) Hip Goniometric Range of Motion Hip Right Passive Testing Position Supine Internal Rotation 55 External Rotation 65 Left Passive Testing Position Supine Internal Rotation 50 External Rotation 65 PT-OP-M Strength Start: 03/30/21 08:43 Freq: Status: Active Protocol: Document 07/10/21 10:35 LRN (Rec: 07/10/21 11:20 LRN [id number]) Hip Strength Hip Manual Muscle Testing Right External Rotation 3 Fair Left External Rotation 4 Good PT-OP-Q Treatments Start: 03/30/21 08:43 Freq: Status: Active Protocol: Document 07/10/21 10:35 LRN (Rec: 07/10/21 11:20 LRN [id number]) Therapeutic Exercises Supine Exercises Bowel Massage Supine Exercise Name Bowel Massage - discussion & education review (pt having 1x /day BM's) Reps/Minutes 10' Comments Phys cuing to massage with flat of hand & v cuing for direction of mvmt Sidelying Exercises Clamshell Sidelying Exercise Name Clamshell w/TA for core stabilization Side bilateral Reps/Minutes 16' Comments Much phy & v cuing to maintain stable core, switching to sitting scooting Sitting Exercises Forward scooting Sitting Exercise Name Forward scooting of hips to train for lower trunk rot/ protraction of ASIS Side bilateral Reps/Minutes 4' Comments Extra time for pt awareness of trunk rotator contractions Sit to stand Sitting Exercise Name Reviewed for proper breathing and PF contractions Reps/Minutes 3' Comments Cuing needed Standing Exercises Sit<>Supine training Standing Exercise Name Sit<>sup proper breathing and PF contractions Reps/Minutes 3' Comments Cuing needed Self-Care/Home Management Treatment Education Other Education Transfer training education in log roll technique. PT-OP-T Assessment and Plan Start: 03/30/21 08:43 Freq: Status: Active Protocol: Document 07/10/21 10:35 LRN (Rec: 07/10/21 11:20 LRN [id number]) Physical Therapy Assessment Goals Four Impairment Urinary leakage in the presence of a strong urge. Short Term Goal (STG) Pt will be educated in urinary delay technique. STG Duration 04/07/21 (04/14/21: MET GOAL) Mcc Goal (LTG) Pt will be able to maintain urinary continence in the presence of a strong urge and decrease need for maxi-pads to use of pantiliner 2x/day in 24 hours (max 1 during the night). (04/20/21: At night and day, wearing a midi-pad - level 4) LTG Duration 09/24/21 (04/20/21: Previously met, incontinence return due to comorbidies) Three Impairment Urinary incontinence with a strong cough, sneeze. Short Term Goal (STG) Improve PF strength per Long Hold to 5 sec's and Quick Flicks 5 reps prior to fatigue . (04/28/21: Pt able to hold PF 5 x 1 while trying to isolate from substitue ms). STG Duration 08/25/21 Mcc Goal (LTG) Pt will have decreased complaints of urinary stress incontinent symptoms with no greater than a small leak in the presence of a strong cough or sneeze. (05/15/21: Increased UI due to Lichen's Sclerosis outbreak at [facility]). LTG Duration 06/28/21 (04/20/21: MET GOAL) Two Impairment Substitution of abdominal, glut, & hip AD ms to perform a PF contraction. Short Term Goal (STG) Pt will be able to perform a proper PF contraction. (04/14/21: Initiated PF strengthening in isolation of substitute muscles) STG Duration 08/25/21 (04/14/21: Progressed ) Copyholder Goal (LTG) Pt will be able to perform a proper PF contraction in the absence of abdominal/gluteal/ hip AD muscles. LTG Duration 09/24/21 One Impairment Pt lacks an independent self care HEP. Impairment Decreased hip mobility (Hip IR 50 L, 45 R; ER 65 L, 55 R). Short Term Goal (STG) Pt will be educated in proper transfers (hip hinging) and transfers with use of proper breathing to minimize stress on pelvic floor (PF). STG Duration 04/14/21 (04/20/21: MET GOAL) Mcc Goal (LTG) Pt will be independent in a self care HEP for PF strengthening and hip mobility ex's. (04/20/21: HEP: added Hip Fig 4 & Piriformis-type stretch) (04/28/21: HEP added LE roll in/out w/PF/deep breathing) (05/15/21: Added Clamshell) LTG Duration 09/24/21 (04/28/21: Progressed) Progress Towards Goals Progress Towards Goals Slow Progress due to Medical Issues Assessment Summary Assessment Pt presents with report of UTI . She is now on 60 day anti- biotic; therefore unable to assess PF strength. Pt is expected to have poor control of voiding frequency and duration due to UTI; therefore I will hold PT until pt has completed her 60 day anti- biotic regime and her UTI has cleared. The pt demonstrated today very poor core control and decreased hip ER strength with her clamshell ex. Much training is needed for core stab with hip ER strengthening . Pt having difficulty maintaining a stable core when lifting her knee due to weak trunk rotators and poor awareness of muscles needed to maintain stability. Bowel program appears to have improved her frequency of BM's to 1x/day. She had poor knowledge of proper bowel massage, but improved awareness after training. Physical Therapy Plan Frequency and Duration Frequency of Treatment 1x/Week Plan of Care Start Date 06/26/21 Plan of Care End Date 09/24/21 Next Visit Focus/Plan Next Note Type Treatment Note Next Visit Plan Recheck and resume PF rehab after pt completes her 60 day antibiotic treatement and UTI has cleared. Assess hip ER strength, if pt can do islolated PF contraction, and PF contractions with fwd lunge/ hip AB (add lateral lunge). POC: Improve hip ER strength, Review & educate pt in proper lifting, and moving in bed using breathwork and core/PF stabilization for proper abdominal pressure system PF/core(TA)/hip strengthening, add hip ext mobility and improve L hip IR mobilty, Improve abdominal soft tissue (bladder) mobility, STM of abdomen (and urachus).
--- NOTE | 2021-09-11 17:40 | PT.OTN ---
Current Diagnoses Postural kyphosis, site unspecified (09/11/21) Muscle weakness (generalized) (09/11/21) Mixed incontinence (09/11/21) Physical Therapy Treatment Note PT-OP-A Visit Information Start: 03/30/21 08:43 Freq: Status: Active Protocol: Document 09/11/21 10:33 LRN (Rec: 09/11/21 11:17 LRN [id number]) Out-Patient Physical Therapy Visit Information Visit Information Visit Type Treatment Note Visit Start Time 10:33 Visit Stop Time 11:13 Total Visit Minutes 40 Visit Number 9 Evaluation Information Evaluation Date 03/30/21 Precautions Precautions Tape & Latex Allergy, CHF, Controlled High Blood pressure , chronic Atril Fib, R MILADY ( 2011) & bilateral knee replacements, Osteoporosis, neuropathy in feet bilaterally , falls (past summer), & dizziness with turning, with most recent last week. History of ruptured discs. Year ago had 1-2 UTI's a month , no UTI the past month (UTI's over the years). PT-OP-B Current Condition Start: 03/30/21 08:43 Freq: Status: Active Protocol: Document 03/30/21 13:51 LRN (Rec: 03/30/21 15:50 LRN [id number]) Current Condition History of Current Condition Onset Date 10 yrs ago. Current Complaints Urinary leakage all day long, sometimes History of Current Condition Usually have an urge before leaking. Not able to make it to bathroom at night without leaking. Urologist sent her to a kidney specialist because there is nothing wrong with the bladder . Kidney specialist thought it was an anatomical problem. Has Lichen Sclerosis that has caused swelling and thinks that what may be causing irritation to urethra and into vagina causing the leakage. For many years just used a pantiliner, but started using a maxipad for the past 3 yrs. Pt complains of a lot of irritation at area of episotomy. Developmental History Developmental History 10 yrs ago was put on medication for her lichen sclerosis that was too drying, so stopped using. 3 vaginal births with 1 stillborn and stitches due to episotomies x 2. Sent by urologist to learn proper kegel ex. Treatment Goals Patient/Caregiver Goals Pt goal is to perform proper Kegel, gain total control of bladder so she doesn't have to wear pads. Decrease use of maxi pad to pantiliner 2x in 24 hours (1 day, 1 night), Prior Functional Status Baseline Function- ADL's Independent Baseline Function- Mobility Independent Baseline Function- Other Pantiliner 2x/day (1 night, 1 day) Sometimes small leak with coughing or sneezing. Current Functional Impairments (Reported) Functional Limitations- Other Leaks with couging or sneezing (sometimes continent if sitting). Uses 2-4 maxipads during day and 2 at night Personal Factors Other Personal Factors That May Effect Heart disease, joint Therapy/Recovery replacements, dizziness/fall risk, Lichen sclerosis of external pelvic floor for estradol cream (generic of premarin). PT-OP-C Subjective Start: 03/30/21 08:43 Freq: Status: Active Protocol: Document 09/11/21 10:33 LRN (Rec: 09/11/21 11:17 LRN [id number]) OP-PT Subjective Patient Comments Patient Comments Has worked on HEP off and on, due to working on garden. Has been on antibiotics for the past 2 months and hasn't had an infection. Finished the antibiotics 2 days ago. Has been monitoring the Lichen Sclerosis. Has had 10 days without irritation and has had no bladder leakage. Will See Dr. Espinosa in October. Has urge incontinence and leaks, doesn' t leak with cough or sneeze. Sometimes has leakage and is not aware of leaking. Amount of leakage is variable. Has been practicing tightening her PF. PT-OP-G Mobility & Gait Start: 03/30/21 16:09 Freq: Status: Active Protocol: Document 03/30/21 13:51 LRN (Rec: 03/30/21 16:10 LRN [id number]) OP Gait Assessment Gait Gait Assistance Required: Independent Assistive Devices Assistive Device None,Straight Cane Comments Gait Comments Pt ambulates with a forward bent posture (hips ~10 deg's flexion) and when using a straight cane, pt uses on the left side. PT-OP-I Pelvic Floor Start: 03/30/21 08:43 Freq: Status: Active Protocol: Document 09/11/21 10:33 LRN (Rec: 09/11/21 11:17 LRN [id number]) Pelvic Floor Assessment Urine Urinary Symptoms Dribbling After Urination Leakage Cause Urge Nocturia 0 Urine Pad Type Panty Liner Pelvic Clock Pelvic Clock 12-3 Tenderness Pelvic Clock 3-6 Tenderness Pelvic Clock 6-9 Atrophy,Tenderness Pelvic Clock 9-12 Atrophy,Tenderness Pelvic Clock Other Labia Minor is very red and angry looking with thinning of the skin. Vaginal Canal opening is very thin and tender. Prolapse Cystocele Grade 2 Rectocele Grade 3 Perineal Descent Resting Absent Bearing Present Contraction Ability Voluntary Contraction Weak Voluntary Relaxation Weak Manual Muscle Testing Left 3 Manual Muscle Testing Right 1 Manual Muscle Testing Anterior 2 Manual Muscle Testing Posterior 3 Muscle Endurance (Seconds) 3 Number of Quick Contractions In 10 5 Seconds PT-OP-J Posture/Palpation/Skin Start: 03/30/21 08:43 Freq: Status: Active Protocol: Document 03/30/21 13:51 LRN (Rec: 03/30/21 15:50 LRN [id number]) Posture Evaluation Position Standing T-Spine Posture Rotation Right L-Spine Posture Shifted Right Shoulder Posture (L) Elevated,(R) Elevated Weight Distribution Weight Shifted Left Hip Posture (L) Internally Rotated,(R) Internally Rotated Knee Posture (R) Excess Flexion Comments Posture Comments Standing with legs: L hip is low, pevis rotates R. PT-OP-K Range of Motion Start: 03/30/21 08:43 Freq: Status: Active Protocol: Document 05/29/21 10:39 LRN (Rec: 05/29/21 11:26 LRN [id number]) Hip Goniometric Range of Motion Hip Right Passive Testing Position Supine Internal Rotation 55 External Rotation 65 Left Passive Testing Position Supine Internal Rotation 50 External Rotation 65 PT-OP-M Strength Start: 03/30/21 08:43 Freq: Status: Active Protocol: Document 09/11/21 10:33 LRN (Rec: 09/11/21 11:17 LRN [id number]) Hip Strength Hip Manual Muscle Testing Right External Rotation 3- Fair- Internal Rotation 3- Fair- Comments Hip Rotation is limited due to R knee pain. Left External Rotation 5 Normal Internal Rotation 4 Good PT-OP-Q Treatments Start: 03/30/21 08:43 Freq: Status: Active Protocol: Document 09/11/21 10:33 LRN (Rec: 09/11/21 11:17 LRN [id number]) Therapeutic Exercises Supine Exercises PF Long Holds Supine Exercise Name PF Long Holds Testing & during transfers and when mobilizing . Reps/Minutes 5' Comments Pt not able to maintain Long Hold contraction in supine on R side PF Quick Flicks Supine Exercise Name PF Quick Flicks Testing around the PF clock. Reps/Minutes 8' Comments Quick Flick PF contraction, weakens to loss of contraction on R side Sidelying Exercises Clamshell Sidelying Exercise Name Clahell w/TA for core stabilization review Side bilateral Reps/Minutes 3' Comments Cuing to maintain stable core R Clamshell Sidelying Exercise Name Clamshell Side right Reps/Minutes 8' (5 holds) Comments Phys assist needed throughout ex to get knee to lift past ~0 deg's AB/ER Sitting Exercises Hip ER/IR Sitting Exercise Name Hip ER/IR Side bilateral Reps/Minutes 3' Comments MMT taken Other Exercises PF contraction with transfers Other Exercise Name PF contraction w/proper breathing w/transfers. Reps/Minutes 8' Comments Cuing for pt to coordinate transfers w/PF/breathwork during transfers Self-Care/Home Management Treatment Education Other Education Educated pt in PF skin condition with discussion of treatments to date she is receiving for her external and internal PF. Pt is choosing to research for more natural methods to improve skin integrity and health. Discussed perineum care with cleansing with water only, avoiding chemical soaps. Educated pt in importance in hydration levels for lessening risk of bladder/UTI infections although urinary leakage might increase. Discussed POC for continuation of therapy since she has now recovered from her UTI and her lichen sclerosis is lessened. PT-OP-T Assessment and Plan Start: 03/30/21 08:43 Freq: Status: Active Protocol: Document 09/11/21 10:33 LRN (Rec: 09/11/21 11:17 LRN [id number]) Physical Therapy Assessment Goals Four Impairment Urinary leakage in the presence of a strong urge. Short Term Goal (STG) Pt will be educated in urinary delay technique. STG Duration 04/07/21 (04/14/21: MET GOAL) [employer] Operator Goal (LTG) Pt will be able to maintain urinary continence in the presence of a strong urge and decrease need for maxi-pads to use of pantiliner 2x/day in 24 hours (max 1 during the night). (04/20/21: At night and day, wearing a midi-pad - level 4) LTG Duration 09/24/21 (04/20/21: Previously met, incontinence return due to comorbidies) Three Impairment Urinary incontinence with a strong cough, sneeze. Short Term Goal (STG) Improve PF strength per Long Hold to 5 sec's and Quick Flicks 5 reps prior to fatigue . (04/28/21: Pt able to hold PF 5 x 1 while trying to isolate from substitue ms). STG Duration 08/25/21 Flower Pot Press Operator Goal (LTG) Pt will have decreased complaints of urinary stress incontinent symptoms with no greater than a small leak in the presence of a strong cough or sneeze. (05/15/21: Increased UI due to Lichen's Sclerosis outbreak at [facility]). LTG Duration 06/28/21 (04/20/21: MET GOAL) Two Impairment Substitution of abdominal, glut, & hip AD ms to perform a PF contraction. Short Term Goal (STG) Pt will be able to perform a proper PF contraction. (04/14/21: Initiated PF strengthening in isolation of substitute muscles) STG Duration 08/25/21 (04/14/21: Progressed ) Senior Living Goal (LTG) Pt will be able to perform a proper PF contraction in the absence of abdominal/gluteal/ hip AD muscles. LTG Duration 09/24/21 One Impairment Pt lacks an independent self care HEP. Impairment Decreased hip mobility (Hip IR 50 L, 45 R; ER 65 L, 55 R). Short Term Goal (STG) Pt will be educated in proper transfers (hip hinging) and transfers with use of proper breathing to minimize stress on pelvic floor (PF). STG Duration 04/14/21 (04/20/21: MET GOAL) Senior Living Goal (LTG) Pt will be independent in a self care HEP for PF strengthening and hip mobility ex's. (04/20/21: HEP: added Hip Fig 4 & Piriformis-type stretch) (04/28/21: HEP added LE roll in/out w/PF/deep breathing) (05/15/21: Added Clamshell) LTG Duration 09/24/21 (04/28/21: Progressed) Assessment Summary Assessment The pt returns after a 2 month break with resolution of her UTI and decrease in lichen sclerosis condition. She has reported reduction in her urinary leakage with healing of her lichen sclerosis. Pt presents today with weak R hip muscle strength and is also notably weak in her R lateral wall of the PF. In supine she has most weakness in her PF Clock posteriorly and R laterally, and appears she have a greater rectocele bulge than cystocele on a valsalva maneuver. Her R knee pain will be a limiting factor in improving her R hip and PF strength due to her reportedly arthritic pain. The pt will benefit from restarting her PF rehabilitation program now that her bladder and PF health has improved, to achieve the above stated goals. Physical Therapy Plan Frequency and Duration Frequency of Treatment 1x/Week Plan of Care Start Date 09/11/21 Plan of Care End Date 11/10/21 Other Referrals/Consults Referrals/Consults Recommended Assessment of her PF to improve tissue health. Next Visit Focus/Plan Next Note Type Treatment Note Next Visit Plan Resume PF rehab now that her UTI has cleared and her lichen sclerosis is better controlled. If pt can do islolated PF contraction, add PF contractions with fwd lunge/ hip AB (add lateral lunge). POC: Improve hip ER strength, Review & educate pt in proper lifting, and moving in bed using breathwork, Educate pt in core/PF stabilization for proper abdominal pressure system. PF/core(TA)/hip strengthening, add hip ext mobility and improve L hip IR mobilty, Improve abdominal soft tissue (bladder) mobility, STM of abdomen (and urachus). Decrease back pain and tension posteriorly.
--- NOTE | 2021-09-18 16:24 | PT.OTN ---
Current Diagnoses Postural kyphosis, site unspecified (09/18/21) Muscle weakness (generalized) (09/18/21) Mixed incontinence (09/18/21) Physical Therapy Treatment Note PT-OP-A Visit Information Start: 03/30/21 08:43 Freq: Status: Active Protocol: Document 09/18/21 15:21 LRN (Rec: 09/18/21 16:23 LRN [id number]) Out-Patient Physical Therapy Visit Information Visit Information Visit Type Progress Note Visit Start Time 15:21 Visit Stop Time 16:01 Total Visit Minutes 40 Visit Number 10 Evaluation Information Evaluation Date 03/30/21 Precautions Precautions Tape & Latex Allergy, CHF, Controlled High Blood pressure , chronic Atril Fib, R MILADY ( 2011) & bilateral knee replacements, Osteoporosis, neuropathy in feet bilaterally , falls (past summer), & dizziness with turning, with most recent last week. History of ruptured discs. Year ago had 1-2 UTI's a month , no UTI the past month (UTI's over the years). PT-OP-B Current Condition Start: 03/30/21 08:43 Freq: Status: Active Protocol: Document 03/30/21 13:51 LRN (Rec: 03/30/21 15:50 LRN [id number]) Current Condition History of Current Condition Onset Date 10 yrs ago. Current Complaints Urinary leakage all day long, sometimes History of Current Condition Usually have an urge before leaking. Not able to make it to bathroom at night without leaking. Urologist sent her to a kidney specialist because there is nothing wrong with the bladder . Kidney specialist thought it was an anatomical problem. Has Lichen Sclerosis that has caused swelling and thinks that what may be causing irritation to urethra and into vagina causing the leakage. For many years just used a pantiliner, but started using a maxipad for the past 3 yrs. Pt complains of a lot of irritation at area of episotomy. Developmental History Developmental History 10 yrs ago was put on medication for her lichen sclerosis that was too drying, so stopped using. 3 vaginal births with 1 stillborn and stitches due to episotomies x 2. Sent by urologist to learn proper kegel ex. Treatment Goals Patient/Caregiver Goals Pt goal is to perform proper Kegel, gain total control of bladder so she doesn't have to wear pads. Decrease use of maxi pad to pantiliner 2x in 24 hours (1 day, 1 night), Prior Functional Status Baseline Function- ADL's Independent Baseline Function- Mobility Independent Baseline Function- Other Pantiliner 2x/day (1 night, 1 day) Sometimes small leak with coughing or sneezing. Current Functional Impairments (Reported) Functional Limitations- Other Leaks with couging or sneezing (sometimes continent if sitting). Uses 2-4 maxipads during day and 2 at night Personal Factors Other Personal Factors That May Effect Heart disease, joint Therapy/Recovery replacements, dizziness/fall risk, Lichen sclerosis of external pelvic floor for estradol cream (generic of premarin). PT-OP-C Subjective Start: 03/30/21 08:43 Freq: Status: Active Protocol: Document 09/18/21 15:21 LRN (Rec: 09/18/21 16:23 LRN [id number]) OP-PT Subjective Patient Comments Patient Comments Back is more sore today. Using cream 2x/day and Dr. Ren gave another cream so the inflammation has calmed down. PT-OP-G Mobility & Gait Start: 03/30/21 16:09 Freq: Status: Active Protocol: Document 03/30/21 13:51 LRN (Rec: 03/30/21 16:10 LRN [id number]) OP Gait Assessment Gait Gait Assistance Required: Independent Assistive Devices Assistive Device None,Straight Cane Comments Gait Comments Pt ambulates with a forward bent posture (hips ~10 deg's flexion) and when using a straight cane, pt uses on the left side. PT-OP-I Pelvic Floor Start: 03/30/21 08:43 Freq: Status: Active Protocol: Document 09/18/21 15:21 LRN (Rec: 09/18/21 16:23 LRN [id number]) Pelvic Floor Assessment Urine Urinary Symptoms Dribbling After Urination Leakage Cause Urge Nocturia 1 Urine Pad Type Maxi Pad Pelvic Clock Pelvic Clock 12-3 Tenderness Pelvic Clock 3-6 Tenderness Pelvic Clock 6-9 Atrophy,Tenderness Pelvic Clock 9-12 Atrophy,Tenderness Pelvic Clock Other Labia Minor is very red and angry looking with thinning of the skin. Vaginal Canal opening is very thin and tender. Prolapse Cystocele Grade 2 Rectocele Grade 3 Perineal Descent Resting Absent Bearing Present Contraction Ability Voluntary Contraction Weak Voluntary Relaxation Weak Manual Muscle Testing Left 3 Manual Muscle Testing Right 1 Manual Muscle Testing Anterior 2 Manual Muscle Testing Posterior 3 Muscle Endurance (Seconds) 3 Number of Quick Contractions In 10 5 Seconds PT-OP-J Posture/Palpation/Skin Start: 03/30/21 08:43 Freq: Status: Active Protocol: Document 03/30/21 13:51 LRN (Rec: 03/30/21 15:50 LRN [id number]) Posture Evaluation Position Standing T-Spine Posture Rotation Right L-Spine Posture Shifted Right Shoulder Posture (L) Elevated,(R) Elevated Weight Distribution Weight Shifted Left Hip Posture (L) Internally Rotated,(R) Internally Rotated Knee Posture (R) Excess Flexion Comments Posture Comments Standing with legs: L hip is low, pevis rotates R. PT-OP-K Range of Motion Start: 03/30/21 08:43 Freq: Status: Active Protocol: Document 05/29/21 10:39 LRN (Rec: 05/29/21 11:26 LRN [id number]) Hip Goniometric Range of Motion Hip Right Passive Testing Position Supine Internal Rotation 55 External Rotation 65 Left Passive Testing Position Supine Internal Rotation 50 External Rotation 65 PT-OP-M Strength Start: 03/30/21 08:43 Freq: Status: Active Protocol: Document 09/11/21 10:33 LRN (Rec: 09/11/21 11:17 LRN [id number]) Hip Strength Hip Manual Muscle Testing Right External Rotation 3- Fair- Internal Rotation 3- Fair- Comments Hip Rotation is limited due to R knee pain. Left External Rotation 5 Normal Internal Rotation 4 Good PT-OP-Q Treatments Start: 03/30/21 08:43 Freq: Status: Active Protocol: Document 09/18/21 15:21 LRN (Rec: 09/18/21 16:23 LRN [id number]) Therapeutic Exercises Supine Exercises PF Long Holds Supine Exercise Name PF Long Holds Testing & during transfers and when mobilizing . Reps/Minutes 5' Comments Pt not able to maintain Long Hold contraction in supine on R side PF Quick Flicks Supine Exercise Name PF Quick Flicks Testing around the PF clock. Reps/Minutes 4' Comments Quick Flick PF contraction, weakens to loss of contraction on R side Manual Therapy Treatment Soft Tissue Mobilization PF external Perineum Comments Wand stretching. Self-Care/Home Management Treatment Education Other Education Pt educated in use of [place] for TrP treatments for self PF stretching. Activities Self-Care/Home Management Activities Issued Small wand for home stretching. Pt to stretch every few days and strengthen PF between stretches. PT-OP-T Assessment and Plan Start: 03/30/21 08:43 Freq: Status: Active Protocol: Document 09/18/21 15:21 LRN (Rec: 09/18/21 16:23 LRN [id number]) Physical Therapy Assessment Goals Four Impairment Urinary leakage in the presence of a strong urge. Short Term Goal (STG) Pt will be educated in urinary delay technique. STG Duration 04/07/21 (04/14/21: MET GOAL) Assisted Goal (LTG) Pt will be able to maintain urinary continence in the presence of a strong urge and decrease need for maxi-pads to use of pantiliner 2x/day in 24 hours (max 1 during the night). (04/20/21: At night and day, wearing a midi-pad - level 4) LTG Duration 12/08/21 (04/20/21: Previously met, incontinence return due to comorbidies) Three Impairment Urinary incontinence with a strong cough, sneeze. Short Term Goal (STG) Improve PF strength per Long Hold to 5 sec's and Quick Flicks 5 reps prior to fatigue . (04/28/21: Pt able to hold PF 5 x 1 while trying to isolate from substitue ms). STG Duration 11/02/21 Cattle Rancher Goal (LTG) Pt will have decreased complaints of urinary stress incontinent symptoms with no greater than a small leak in the presence of a strong cough or sneeze. (05/15/21: Increased UI due to Lichen's Sclerosis outbreak at [facility]). LTG Duration 06/28/21 (04/20/21: MET GOAL) Two Impairment Substitution of abdominal, glut, & hip AD ms to perform a PF contraction. Short Term Goal (STG) Pt will be able to perform a proper PF contraction. (04/14/21: Initiated PF strengthening in isolation of substitute muscles) STG Duration 11/02/21 (04/14/21: Progressed) Cattle Rancher Goal (LTG) Pt will be able to perform a proper PF contraction in the absence of abdominal/gluteal/ hip AD muscles. LTG Duration 12/08/21 One Impairment Pt lacks an independent self care HEP. Impairment Decreased hip mobility (Hip IR 50 L, 45 R; ER 65 L, 55 R). Short Term Goal (STG) Pt will be educated in proper transfers (hip hinging) and transfers with use of proper breathing to minimize stress on pelvic floor (PF). STG Duration 04/14/21 (04/20/21: MET GOAL) Cattle Rancher Goal (LTG) Pt will be independent in a self care HEP for PF strengthening and hip mobility ex's. (04/20/21: HEP: added Hip Fig 4 & Piriformis-type stretch) (04/28/21: HEP added LE roll in/out w/PF/deep breathing) (05/15/21: Added Clamshell) LTG Duration 12/08/21 (04/28/21: Progressed) Assessment Summary Assessment The pt returned a visit ago after a 2 month break with resolution of her UTI and decrease in lichen sclerosis condition. She has reported reduction in her urinary leakage with healing of her lichen sclerosis. She has notable weakness in her R lateral wall of the PF. In supine she has most weakness in her PF Clock posteriorly and R laterally, and appears she have a greater rectocele bulge than cystocele on a valsalva maneuver. Her R knee and low back pain will be a limiting factor in improving her R hip and PF strength due to her reportedly arthritic pain. The pt will benefit from resuming her PF rehabilitation program now that her bladder and PF health has improved. We will work towards achieving the above stated goals. 1 Physical Therapy Plan Frequency and Duration Frequency of Treatment 1x/Week Plan of Care Start Date 09/18/21 Plan of Care End Date 12/08/21 Next Visit Focus/Plan Next Note Type Treatment Note Next Visit Plan Assess response to PF TrP treatment. If pt can do islolated PF contraction, add PF contractions with fwd lunge/ hip AB (add lateral lunge). POC: Improve hip ER strength, Review & educate pt in proper lifting, and moving in bed using breathwork, Educate pt in core/PF stabilization for proper abdominal pressure system. PF/core(TA)/hip strengthening, add hip ext mobility and improve L hip IR mobilty, Improve abdominal soft tissue (bladder) mobility, STM of abdomen (and urachus). Decrease back pain and tension posteriorly.
--- NOTE | 2021-09-18 16:32 | PT.OPPN ---
Current Diagnoses Postural kyphosis, site unspecified (09/18/21) Muscle weakness (generalized) (09/18/21) Mixed incontinence (09/18/21) Physical Therapy Progress Note PT-OP-A Visit Information Start: 03/30/21 08:43 Freq: Status: Active Protocol: Document 09/18/21 15:21 LRN (Rec: 09/18/21 16:23 LRN [id number]) Out-Patient Physical Therapy Visit Information Visit Information Visit Type Progress Note Visit Start Time 15:21 Visit Stop Time 16:01 Total Visit Minutes 40 Visit Number 10 Evaluation Information Evaluation Date 03/30/21 Precautions Precautions Tape & Latex Allergy, CHF, Controlled High Blood pressure , chronic Atril Fib, R MILADY ( 2011) & bilateral knee replacements, Osteoporosis, neuropathy in feet bilaterally , falls (past summer), & dizziness with turning, with most recent last week. History of ruptured discs. Year ago had 1-2 UTI's a month , no UTI the past month (UTI's over the years). PT-OP-B Current Condition Start: 03/30/21 08:43 Freq: Status: Active Protocol: Document 03/30/21 13:51 LRN (Rec: 03/30/21 15:50 LRN [id number]) Current Condition History of Current Condition Onset Date 10 yrs ago. Current Complaints Urinary leakage all day long, sometimes History of Current Condition Usually have an urge before leaking. Not able to make it to bathroom at night without leaking. Urologist sent her to a kidney specialist because there is nothing wrong with the bladder . Kidney specialist thought it was an anatomical problem. Has Lichen Sclerosis that has caused swelling and thinks that what may be causing irritation to urethra and into vagina causing the leakage. For many years just used a pantiliner, but started using a maxipad for the past 3 yrs. Pt complains of a lot of irritation at area of episotomy. Developmental History Developmental History 10 yrs ago was put on medication for her lichen sclerosis that was too drying, so stopped using. 3 vaginal births with 1 stillborn and stitches due to episotomies x 2. Sent by urologist to learn proper kegel ex. Treatment Goals Patient/Caregiver Goals Pt goal is to perform proper Kegel, gain total control of bladder so she doesn't have to wear pads. Decrease use of maxi pad to pantiliner 2x in 24 hours (1 day, 1 night), Prior Functional Status Baseline Function- ADL's Independent Baseline Function- Mobility Independent Baseline Function- Other Pantiliner 2x/day (1 night, 1 day) Sometimes small leak with coughing or sneezing. Current Functional Impairments (Reported) Functional Limitations- Other Leaks with couging or sneezing (sometimes continent if sitting). Uses 2-4 maxipads during day and 2 at night Personal Factors Other Personal Factors That May Effect Heart disease, joint Therapy/Recovery replacements, dizziness/fall risk, Lichen sclerosis of external pelvic floor for estradol cream (generic of premarin). PT-OP-C Subjective Start: 03/30/21 08:43 Freq: Status: Active Protocol: Document 09/18/21 15:21 LRN (Rec: 09/18/21 16:23 LRN [id number]) OP-PT Subjective Patient Comments Patient Comments Back is more sore today. Using cream 2x/day and Dr. Ren gave another cream so the inflammation has calmed down. PT-OP-G Mobility & Gait Start: 03/30/21 16:09 Freq: Status: Active Protocol: Document 03/30/21 13:51 LRN (Rec: 03/30/21 16:10 LRN [id number]) OP Gait Assessment Gait Gait Assistance Required: Independent Assistive Devices Assistive Device None,Straight Cane Comments Gait Comments Pt ambulates with a forward bent posture (hips ~10 deg's flexion) and when using a straight cane, pt uses on the left side. PT-OP-I Pelvic Floor Start: 03/30/21 08:43 Freq: Status: Active Protocol: Document 09/18/21 15:21 LRN (Rec: 09/18/21 16:23 LRN [id number]) Pelvic Floor Assessment Urine Urinary Symptoms Dribbling After Urination Leakage Cause Urge Nocturia 1 Urine Pad Type Maxi Pad Pelvic Clock Pelvic Clock 12-3 Tenderness Pelvic Clock 3-6 Tenderness Pelvic Clock 6-9 Atrophy,Tenderness Pelvic Clock 9-12 Atrophy,Tenderness Pelvic Clock Other Labia Minor is very red and angry looking with thinning of the skin. Vaginal Canal opening is very thin and tender. Prolapse Cystocele Grade 2 Rectocele Grade 3 Perineal Descent Resting Absent Bearing Present Contraction Ability Voluntary Contraction Weak Voluntary Relaxation Weak Manual Muscle Testing Left 3 Manual Muscle Testing Right 1 Manual Muscle Testing Anterior 2 Manual Muscle Testing Posterior 3 Muscle Endurance (Seconds) 3 Number of Quick Contractions In 10 5 Seconds PT-OP-J Posture/Palpation/Skin Start: 03/30/21 08:43 Freq: Status: Active Protocol: Document 03/30/21 13:51 LRN (Rec: 03/30/21 15:50 LRN [id number]) Posture Evaluation Position Standing T-Spine Posture Rotation Right L-Spine Posture Shifted Right Shoulder Posture (L) Elevated,(R) Elevated Weight Distribution Weight Shifted Left Hip Posture (L) Internally Rotated,(R) Internally Rotated Knee Posture (R) Excess Flexion Comments Posture Comments Standing with legs: L hip is low, pevis rotates R. PT-OP-K Range of Motion Start: 03/30/21 08:43 Freq: Status: Active Protocol: Document 05/29/21 10:39 LRN (Rec: 05/29/21 11:26 LRN [id number]) Hip Goniometric Range of Motion Hip Measured in Degrees Right Passive Testing Position Supine Internal Rotation 55 External Rotation 65 Left Passive Testing Position Supine Internal Rotation 50 External Rotation 65 PT-OP-M Strength Start: 03/30/21 08:43 Freq: Status: Active Protocol: Document 09/11/21 10:33 LRN (Rec: 09/11/21 11:17 LRN [id number]) Hip Strength Hip Manual Muscle Testing Right External Rotation 3- Fair- Internal Rotation 3- Fair- Comments Hip Rotation is limited due to R knee pain. Left External Rotation 5 Normal Internal Rotation 4 Good PT-OP-T Assessment and Plan Start: 03/30/21 08:43 Freq: Status: Active Protocol: Document 09/18/21 15:21 LRN (Rec: 09/18/21 16:23 LRN [id number]) Physical Therapy Assessment Goals Four Impairment Urinary leakage in the presence of a strong urge. Short Term Goal (STG) Pt will be educated in urinary delay technique. STG Duration 04/07/21 (04/14/21: MET GOAL) Halfway Goal (LTG) Pt will be able to maintain urinary continence in the presence of a strong urge and decrease need for maxi-pads to use of pantiliner 2x/day in 24 hours (max 1 during the night). (04/20/21: At night and day, wearing a midi-pad - level 4) LTG Duration 12/08/21 (04/20/21: Previously met, incontinence return due to comorbidies) Three Impairment Urinary incontinence with a strong cough, sneeze. Short Term Goal (STG) Improve PF strength per Long Hold to 5 sec's and Quick Flicks 5 reps prior to fatigue . (04/28/21: Pt able to hold PF 5 x 1 while trying to isolate from substitue ms). STG Duration 11/02/21 Halfway Goal (LTG) Pt will have decreased complaints of urinary stress incontinent symptoms with no greater than a small leak in the presence of a strong cough or sneeze. (05/15/21: Increased UI due to Lichen's Sclerosis outbreak at [facility]). LTG Duration 06/28/21 (04/20/21: MET GOAL) Two Impairment Substitution of abdominal, glut, & hip AD ms to perform a PF contraction. Short Term Goal (STG) Pt will be able to perform a proper PF contraction. (04/14/21: Initiated PF strengthening in isolation of substitute muscles) STG Duration 11/02/21 (04/14/21: Progressed) Halfway Goal (LTG) Pt will be able to perform a proper PF contraction in the absence of abdominal/gluteal/ hip AD muscles. LTG Duration 12/08/21 One Impairment Pt lacks an independent self care HEP. Impairment Decreased hip mobility (Hip IR 50 L, 45 R; ER 65 L, 55 R). Short Term Goal (STG) Pt will be educated in proper transfers (hip hinging) and transfers with use of proper breathing to minimize stress on pelvic floor (PF). STG Duration 04/14/21 (04/20/21: MET GOAL) Halfway Goal (LTG) Pt will be independent in a self care HEP for PF strengthening and hip mobility ex's. (04/20/21: HEP: added Hip Fig 4 & Piriformis-type stretch) (04/28/21: HEP added LE roll in/out w/PF/deep breathing) (05/15/21: Added Clamshell) LTG Duration 12/08/21 (04/28/21: Progressed) Assessment Summary Assessment The pt returned a visit ago after a 2 month break with resolution of her UTI and decrease in lichen sclerosis condition. She has reported reduction in her urinary leakage with healing of her lichen sclerosis. She has notable weakness in her R lateral wall of the PF. In supine she has most weakness in her PF Clock posteriorly and R laterally, and appears she have a greater rectocele bulge than cystocele on a valsalva maneuver. Her R knee and low back pain will be a limiting factor in improving her R hip and PF strength due to her reportedly arthritic pain. The pt will benefit from resuming her PF rehabilitation program now that her bladder and PF health has improved. We will work towards achieving the above stated goals. 1 Physical Therapy Plan Frequency and Duration Frequency of Treatment 1x/Week Plan of Care Start Date 09/18/21 Plan of Care End Date 12/08/21 Next Visit Focus/Plan Next Note Type Treatment Note Next Visit Plan Assess response to PF TrP treatment. If pt can do islolated PF contraction, add PF contractions with fwd lunge/ hip AB (add lateral lunge). POC: Improve hip ER strength, Review & educate pt in proper lifting, and moving in bed using breathwork, Educate pt in core/PF stabilization for proper abdominal pressure system. PF/core(TA)/hip strengthening, add hip ext mobility and improve L hip IR mobilty, Improve abdominal soft tissue (bladder) mobility, STM of abdomen (and urachus). Decrease back pain and tension posteriorly.
--- NOTE | 2021-10-03 17:51 | PT.OTN ---
Current Diagnoses Postural kyphosis, site unspecified (10/03/21) Muscle weakness (generalized) (10/03/21) Mixed incontinence (10/03/21) Physical Therapy Treatment Note PT-OP-A Visit Information Start: 03/30/21 08:43 Freq: Status: Active Protocol: Document 10/03/21 13:51 LRN (Rec: 10/03/21 14:36 LRN [id number]) Out-Patient Physical Therapy Visit Information Visit Information Visit Type Treatment Note Visit Start Time 13:49 Visit Stop Time 14:27 Total Visit Minutes 38 Visit Number 11 Evaluation Information Evaluation Date 03/30/21 Precautions Precautions Tape & Latex Allergy, CHF, Controlled High Blood pressure , chronic Atril Fib, R MILADY ( 2011) & bilateral knee replacements, Osteoporosis, neuropathy in feet bilaterally , falls (past summer), & dizziness with turning, with most recent last week. History of ruptured discs. Year ago had 1-2 UTI's a month , no UTI the past month (UTI's over the years). PT-OP-B Current Condition Start: 03/30/21 08:43 Freq: Status: Active Protocol: Document 03/30/21 13:51 LRN (Rec: 03/30/21 15:50 LRN [id number]) Current Condition History of Current Condition Onset Date 10 yrs ago. Current Complaints Urinary leakage all day long, sometimes History of Current Condition Usually have an urge before leaking. Not able to make it to bathroom at night without leaking. Urologist sent her to a kidney specialist because there is nothing wrong with the bladder . Kidney specialist thought it was an anatomical problem. Has Lichen Sclerosis that has caused swelling and thinks that what may be causing irritation to urethra and into vagina causing the leakage. For many years just used a pantiliner, but started using a maxipad for the past 3 yrs. Pt complains of a lot of irritation at area of episotomy. Developmental History Developmental History 10 yrs ago was put on medication for her lichen sclerosis that was too drying, so stopped using. 3 vaginal births with 1 stillborn and stitches due to episotomies x 2. Sent by urologist to learn proper kegel ex. Treatment Goals Patient/Caregiver Goals Pt goal is to perform proper Kegel, gain total control of bladder so she doesn't have to wear pads. Decrease use of maxi pad to pantiliner 2x in 24 hours (1 day, 1 night), Prior Functional Status Baseline Function- ADL's Independent Baseline Function- Mobility Independent Baseline Function- Other Pantiliner 2x/day (1 night, 1 day) Sometimes small leak with coughing or sneezing. Current Functional Impairments (Reported) Functional Limitations- Other Leaks with couging or sneezing (sometimes continent if sitting). Uses 2-4 maxipads during day and 2 at night Personal Factors Other Personal Factors That May Effect Heart disease, joint Therapy/Recovery replacements, dizziness/fall risk, Lichen sclerosis of external pelvic floor for estradol cream (generic of premarin). PT-OP-C Subjective Start: 03/30/21 08:43 Freq: Status: Active Protocol: Document 10/03/21 13:51 LRN (Rec: 10/03/21 14:36 LRN [id number]) OP-PT Subjective Patient Comments Patient Comments Last time at PT had gotten a new cream. Had improved in one day. The next day had no leakage. Last week in [place] rinsed every time toileting. Delayed urinating today 1hr more than normal, so leaked a very little. Uses cream 2x/ day when not using estrogen and betamethasone. Didn't use the wand because didn't think it would work our for her. PT-OP-G Mobility & Gait Start: 03/30/21 16:09 Freq: Status: Active Protocol: Document 03/30/21 13:51 LRN (Rec: 03/30/21 16:10 LRN [id number]) OP Gait Assessment Gait Gait Assistance Required: Independent Assistive Devices Assistive Device None,Straight Cane Comments Gait Comments Pt ambulates with a forward bent posture (hips ~10 deg's flexion) and when using a straight cane, pt uses on the left side. PT-OP-I Pelvic Floor Start: 03/30/21 08:43 Freq: Status: Active Protocol: Document 10/03/21 13:51 LRN (Rec: 10/03/21 14:36 LRN [id number]) Pelvic Floor Assessment Contraction Ability Voluntary Contraction Moderate Voluntary Relaxation Moderate Manual Muscle Testing Left 2 Manual Muscle Testing Right 3 Manual Muscle Testing Anterior 3 Manual Muscle Testing Posterior 2 Muscle Endurance (Seconds) 10 Number of Quick Contractions In 10 5 Seconds PT-OP-J Posture/Palpation/Skin Start: 03/30/21 08:43 Freq: Status: Active Protocol: Document 03/30/21 13:51 LRN (Rec: 03/30/21 15:50 LRN [id number]) Posture Evaluation Position Standing T-Spine Posture Rotation Right L-Spine Posture Shifted Right Shoulder Posture (L) Elevated,(R) Elevated Weight Distribution Weight Shifted Left Hip Posture (L) Internally Rotated,(R) Internally Rotated Knee Posture (R) Excess Flexion Comments Posture Comments Standing with legs: L hip is low, pevis rotates R. PT-OP-K Range of Motion Start: 03/30/21 08:43 Freq: Status: Active Protocol: Document 05/29/21 10:39 LRN (Rec: 05/29/21 11:26 LRN [id number]) Hip Goniometric Range of Motion Hip Right Passive Testing Position Supine Internal Rotation 55 External Rotation 65 Left Passive Testing Position Supine Internal Rotation 50 External Rotation 65 PT-OP-M Strength Start: 03/30/21 08:43 Freq: Status: Active Protocol: Document 09/11/21 10:33 LRN (Rec: 09/11/21 11:17 LRN [id number]) Hip Strength Hip Manual Muscle Testing Right External Rotation 3- Fair- Internal Rotation 3- Fair- Comments Hip Rotation is limited due to R knee pain. Left External Rotation 5 Normal Internal Rotation 4 Good PT-OP-Q Treatments Start: 03/30/21 08:43 Freq: Status: Active Protocol: Document 10/03/21 13:51 LRN (Rec: 10/03/21 14:36 LRN [id number]) Therapeutic Exercises Supine Exercises PF Long Holds Supine Exercise Name PF Long Holds Testing & during transfers and around the PF clock Reps/Minutes 10' Comments Pt not able to maintain Long Hold contraction and w/o substitute ms PF Quick Flicks Supine Exercise Name PF Quick Flicks Testing around the PF clock. Reps/Minutes 6' Comments Quick Flick PF contraction in isolation of substitute ms Sitting Exercises Hip ER/IR Sitting Exercise Name Hip ER/IR with PF education Side bilateral Reps/Minutes 6' Comments MMT taken Self-Care/Home Management Treatment Education Patient Education Home Exercise Program Other Education Review at length, with discussion, current self skilled nursing program, including PF care. Activities Self-Care/Home Management Activities Issued & reviewed HEP: PF contarction with: sitting hip ER, bridging, and hip IR. Verbal instructions to focus on quick flicks and posterior PF long holds/quick flicks. PT-OP-T Assessment and Plan Start: 03/30/21 08:43 Freq: Status: Active Protocol: Document 10/03/21 13:51 LRN (Rec: 10/03/21 14:36 LRN [id number]) Physical Therapy Assessment Goals Four Impairment Urinary leakage in the presence of a strong urge. Short Term Goal (STG) Pt will be educated in urinary delay technique. STG Duration 04/07/21 (04/14/21: MET GOAL) Longterm Goal (LTG) Pt will be able to maintain urinary continence in the presence of a strong urge and decrease need for maxi-pads to use of pantiliner 2x/day in 24 hours (max 1 during the night). (04/20/21: At night and day, wearing a midi-pad - level 4) (10/03/21: Using a very thin liner. Is able to maintain continence in presence of a strong urge). LTG Duration 12/08/21 (10/03/21: MET GOAL) Three Impairment Urinary incontinence with a strong cough, sneeze. Short Term Goal (STG) Improve PF strength per Long Hold to 5 sec's and Quick Flicks 5 reps prior to fatigue . (04/28/21: Pt able to hold PF 5 x 1 while trying to isolate from substitue ms). STG Duration 11/02/21 (10/03/21: MET GOAL) In Flight Refueling System Repairer Goal (LTG) Pt will have decreased complaints of urinary stress incontinent symptoms with no greater than a small leak in the presence of a strong cough or sneeze. (05/15/21: Increased UI due to Lichen's Sclerosis outbreak at [facility]). LTG Duration 06/28/21 (04/20/21: MET GOAL) Two Impairment Substitution of abdominal, glut, & hip AD ms to perform a PF contraction. Short Term Goal (STG) Pt will be able to perform a proper PF contraction. (04/14/21: Initiated PF strengthening in isolation of substitute muscles) STG Duration 11/02/21 (10/03/21: MET GOAL) Longterm Goal (LTG) Pt will be able to perform a proper PF contraction in the absence of abdominal/gluteal/ hip AD muscles. LTG Duration 12/08/21 (10/04/21: MET GOAL) One Impairment Pt lacks an independent self care HEP. Impairment Decreased hip mobility (Hip IR 50 L, 45 R; ER 65 L, 55 R). Short Term Goal (STG) Pt will be educated in proper transfers (hip hinging) and transfers with use of proper breathing to minimize stress on pelvic floor (PF). STG Duration 04/14/21 (04/20/21: MET GOAL) In Flight Refueling System Repairer Goal (LTG) Pt will be independent in a self care HEP for PF strengthening and hip mobility ex's. (04/20/21: HEP: added Hip Fig 4 & Piriformis-type stretch) (04/28/21: HEP added LE roll in/out w/PF/deep breathing) (05/15/21: Added Clamshell) LTG Duration 12/08/21 (10/03/21: MET GOAL) Assessment Summary Assessment Pt returns after 2 weeks on self care program with much improved level of continence after being on medication to the PF and external PF tissues . The redness and irritation of the PF tissues is much improved with only redness noted in outer edge of the L side of her labia majora. She has no tenderness of the superficial or deep PF muscles on internal palpation. She reports rare, small urinary leakage when holding her urine after an hour of having an urge. The pt is now able to hold her PF contraction 10 secs, and is able to contract her PF 10x as a quick flick with her deep muscles, but the superficial muscles are weak. She is mostly asymptomatic for urinary leakage; therefore the pt is happy with where she is at and is ready to be placed on an independent HEP. Physical Therapy Plan Discharge Physical Therapy Discharge Reasons Goals Met Discharge Comments Thank you for your referral.
== END 2021-10-04 09:22 ==
LOC: PHYS 13:45
PROVIDERS: Family Provider Student in an Organized Health Care Education/Training Program; PCP Student in an Organized Health Care Education/Training Program; Referring Provider Student in an Organized Health Care Education/Training Program; Visit Provider Student in an Organized Health Care Education/Training Program
DX: N39.46 Mixed incontinence (principal); M62.81 Muscle weakness (generalized); M40.00 Postural kyphosis, site unspecified
CPT/HCPCS: 97110; 97140; 97162; 97535

== ENCOUNTER → 2021-11-03 14:56 | Outpatient (CLI) | payer MEDICARE, SELFPAY ==
[2021-11-03 16:58] LABS: Add Manual Diff / Slide Review NO; Basophils Absolute Auto 0 /uL (0-100); Basophils Percent Auto 0.9 % (0-2); Eosinophils Absolute Auto 200 /uL (0-450); Eosinophils Percent Auto 2.9 % (2-4); Hematocrit 37.3 % (36-46); Hemoglobin 12.5 g/dL (12.0-16.0); Lymphocytes Absolute Auto 1500 /uL (1100-4500); Lymphocytes Percent Auto 27.9 % (25-40); Mean Corpuscular HGB Conc 33.5 % (30-36); Mean Corpuscular Hemoglobin 33.5 PG (26-34); Monocytes Absolute Auto 400 /uL (0-900); Monocytes Percent Auto 8.2 % (3-14); Neutrophils Absolute Auto 3200 /uL (1500-7000); Neutrophils Percent Auto 60.1 % (50-75); Platelet Count 181 X10^3/uL (150-400); Red Blood Cell Count 3.73 X10^6/uL (4.0-5.2); Red Cell Distribution Width 13.1 % (11.6-14.8); White Blood Cell Count 5.2 X10^3/uL (4.5-11.0)
[2021-11-03 18:03] LABS: Thyroid Stimulating Hormone 0.862 uIU/mL (0.47-4.68)
== END ==
PROVIDERS: Family Provider Student in an Organized Health Care Education/Training Program; PCP Student in an Organized Health Care Education/Training Program; Referring Provider Internal Medicine; Visit Provider Internal Medicine
DX: I48.21 Permanent atrial fibrillation (principal)
CPT/HCPCS: 36415; 84439; 84443; 85025

== ENCOUNTER 2022-02-06 15:19 | Emergency (ER) | payer MEDICARE, SELFPAY ==
[2022-02-06 15:25] VITALS: BP 141/66; PULSE 86; RESP 18; TEMP 36.7; O2SAT 96
--- NOTE | 2022-02-06 15:29 | DI.CT.S_ITS ---
PROCEDURE: CT HEAD/BRAIN WO CON INDICATIONS: fall hit head on thinners TECHNIQUE: Noncontrast 4.5 mm thick angled axial sections acquired from the foramen magnum to the vertex, with coronal and sagittal reformats. For radiation dose reduction, the following was used: automated exposure control, adjustment of mA and/or kV according to patient size. COMPARISON: None. FINDINGS: Image quality: Excellent. CSF spaces: Basal cisterns are patent. No extra-axial fluid collections. The ventricles are symmetric in size and shape. Brain: No intracranial bleeds or masses. There is cerebral volume loss for age, with resultant ventricular and sulcal prominence. There are periventricular and deep white matter chronic small vessel ischemic changes. There is intracranial internal carotid artery atherosclerosis. Skull and face: Calvarium and visualized facial bones appear intact, without suspicious lesions. Sinuses: Visualized sinuses and mastoids are clear. IMPRESSION: No acute intracranial finding. Dictated by: Ronni Dawson M.D. on 02/06/2022 at 15:50 Approved by: Ronni Dawson M.D. on 02/06/2022 at 15:52
--- NOTE | 2022-02-06 15:29 | DI.CT.S_ITS ---
PROCEDURE: CT CERVICAL SPINE WO CON INDICATIONS: Trauma, fall hit head on thinners TECHNIQUE: Noncontrast 3 mm thick sections acquired from the skull base to the T4 level. Sagittal and coronal reformats were then constructed. For radiation dose reduction, the following was used: automated exposure control, adjustment of mA and/or kV according to patient size. COMPARISON: None. FINDINGS: Image quality: Excellent. Bones: Degenerative straightening of the usual cervical lordosis. Otherwise normal alignment. No listhesis. Vertebral body heights maintained. No fracture. Soft tissues: Prevertebral soft tissues are normal in thickness. No paravertebral hematomas. No apical pneumothoraces. IMPRESSION: No CT evidence of acute traumatic cervical spine injury. Dictated by: Ronni Dawson M.D. on 02/06/2022 at 15:52 Approved by: Ronni Dawson M.D. on 02/06/2022 at 15:59
--- NOTE | 2022-02-06 16:25 | ED.FALL ---
HPI - Fall General Chief Complaint: Trauma Stated Complaint: Split head open on blood thinners Time Seen by Provider: 02/06/22 15:39 Source: patient Mode of arrival: Ambulatory History of Present Illness HPI Narrative: Patient is a 81-year-old female history of atrial fibrillation on warfarin presenting after a ground level fall. She says she tripped and fell on her head and hit into a fence post. No loss of consciousness no nausea or vomiting. She has a significant laceration on her right forehead. No weakness numbness or tingling. She states that she is being worked up for thyroid cancer there is something on her thyroid they attempted a biopsy her Coumadin was held they have been working on getting it back up. She said her INRs checked weekly these days. It was therapeutic last week Related Data Home Medications Medication Instructions Recorded Confirmed multivitamin (Multiple Vitamins 1 tab PO DAILY ##0 08/05/17 11/10/21 tablet) calcium citrate 500 mg PO BID 09/25/18 11/10/21 cholecalciferol (vitamin D3) 50 2,000 unit PO BID 09/25/18 11/10/21 mcg (2,000 unit) capsule fluticasone propionate 50 2 spray intranasal DAILY PRN Nasal 11/10/18 11/10/21 mcg/actuation nasal Congestion spray,suspension furosemide 20 mg tablet (Lasix) 20 mg PO PRN PRN Edema, fluid 11/10/18 11/10/21 retention warfarin 5 mg tablet 7.5 mg PO DAILY 11/29/20 11/10/21 ascorbic acid (vitamin C) PO 12/14/20 11/10/21 cranberry extract PO 12/14/20 11/10/21 d-mannose 500 mg capsule mg PO 12/14/20 11/10/21 Previous Rx's Medication Instructions Recorded carvedilol 12.5 mg tablet (Coreg) 12.5 mg PO BID #180 tabs 07/14/19 losartan 25 mg tablet 25 mg PO DAILY #90 tabs 11/24/19 cephalexin 500 mg capsule 500 mg PO BEDTIME #30 caps 07/20/21 estradiol 0.01% (0.1 mg/gram) 1 g vaginal 2XW #42.5 grams 11/07/21 vaginal cream Allergies Allergy/AdvReac Type Severity Reaction Status Date / Time acetaminophen Allergy Mild UPSET Verified 11/10/21 14:16 STOMACH digoxin Allergy Mild SWELLING Verified 11/10/21 14:16 LOWER EXTRMITIES hydromorphone Allergy Mild N/V Verified 11/10/21 14:16 adhesive Allergy Unknown SENSITVE Verified 11/10/21 14:16 TO TAPE latex Allergy Rash Verified 11/10/21 14:16 nitrofurantoin Allergy Verified 11/10/21 14:16 [From Macrobid] phenytoin Allergy Verified 11/10/21 14:16 ibuprofen AdvReac Mild UNABLE TO Verified 11/10/21 14:16 TAKE DUE TO COUMADIN meperidine AdvReac Mild GI UPSET Verified 11/10/21 14:16 WITH VOMITING xylitol AdvReac Mild diarrhea Verified 11/10/21 14:16 and upset stomach Review of Systems Review of Systems Narrative: GENERAL: Denies chills,fever HEENT: Denies throat pain RESPIRATORY: Denies dyspnea, cough, wheezing CARDIOVASCULAR: Denies chest pain, palpitations GASTROINTESTINAL: Denies nausea, vomiting MUSCULOSKELETAL: Denies extremity pain, injury SKIN: See HPI NEUROLOGIC: + head injury, Denies weakness, dizziness, headache, numbness 8 point review of systems is negative except for those stated above and HPI Patient History Medical History Arthritis Atrial fibrillation (2006) Bimalleolar fracture of right ankle (2015) Cardiomyopathy Cataract Chicken pox (9) Chronic UTI CTS (carpal tunnel syndrome) 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) Fractures (10/08/07) Hayfever (1960) Heart failure, systolic History of UTI Lichen sclerosus et atrophicus (2011) Measles (1949) Microscopic hematuria Mitral stenosis Mixed incontinence Osteoarthritis (1996) Osteopenia Osteoporosis Postmenopausal atrophic vaginitis Valvular heart disease Surgical History Anesthesia History of carpal tunnel repair (1979) History of carpal tunnel repair (03/23/04) History of cataract removal with insertion of prosthetic lens (01/02/12) History of cataract removal with insertion of prosthetic lens (12/19/11) History of hip replacement (05/08/10) History of hip surgery (05/16/08) History of hip surgery (10/08/07) History of incision and drainage (10/03/18) History of knee replacement (02/11/12) History of knee replacement (07/19/08) History of nasal surgery (10/03/11) History of orthopedic surgery (10/17/09) Status post vaginal hysterectomy (1974) Family History Father Family history of SD (myocardial infarction) Heart disease Congestive heart failure Mother Cancer Myeloma Necrotizing fasciitis Brother MVA (motor vehicle accident) Sister No problems noted. Daughter No problems noted. Son No problems noted. Social History marital status: number of children: 2 household members: spouse occupational status: previously employed Smoking Status: Former smoker Tobacco: How many years used: 10 alcohol intake: current caffeine: Yes Smoking Status: Former smoker alcohol intake frequency: a few times a week Substance Use Type: does not use Exam Initial Vital Signs Initial Vital Signs: Vital Signs Temperature 98.1 F 02/06/22 15:25 Pulse Rate 86 02/06/22 15:25 Respiratory Rate 18 02/06/22 15:25 Blood Pressure 141/66 H 02/06/22 15:25 Pulse Oximetry 96 02/06/22 15:25 Oxygen Delivery Method 02/06/22 15:25 GENERAL: Alert pleasant 81-year-old female HEAD: 3 cm laceration right forehead good skin approximation no depressions or crepitus NECK: No vertebral tenderness no step-off CARDIOVASCULAR: peripheral pulses in tact, cap refill <2 sec RESPIRATORY: No respiratory distress, speaks in full sentences without difficulty EXTREMITIES: Normal range of motion, no clubbing or edema. Neurovascularly intact NEUROLOGICAL: Cranial nerves II through XII grossly intact. Normal gait and speech. Electronic Calibration Technician strength equal bilaterally SKIN: Warm, dry, no petechiae, no rashes or lesions. Procedures Laceration Repair Laceration 1: Site: face (forhead) Side (If applicable): right Size (cm): 3 Description: linear Local Anesthetic: lidocaine 1% and with epi Amount of anesthesia used (mL): 3 Pre-repair: wound explored, irrigated extensively and deep structures intact Skin layer closed with: nylon Skin layer suture size: 4-0 Number of sutures: 3 Technique: simple, interrupted Course Orders Ordered: ED Orders 02/06/22 15:29 CT cervical spine wo con Stat CT head/brain wo con Stat Vital Signs Vital signs: Vital Signs - 8 hr 02/06/22 15:25 02/06/22 16:56 Temperature 98.1 F Pulse Rate 86 78 Respiratory Rate 18 16 Blood Pressure 141/66 H 141/75 H Pulse Oximetry 96 99 Oxygen Delivery Method Room Air Room Air MDM - Fall Imaging Data CT - cervical spine: Radiologist's Impression: Signed Patient: Ana M Gale MR#: [id number] : 1940 Acct:[id number] Age/Sex: 81 / F Date of Service: 02/06/22 Loc: ED Accession Number: [id number] ?? Procedure: CT cervical spine wo con Ordering Provider: Ruth Ann Aj D.O. PROCEDURE:? CT CERVICAL SPINE WO CON ? INDICATIONS:? Trauma, fall hit head on thinners ? TECHNIQUE:? Noncontrast 3 mm thick sections acquired from the skull base to the T4 level.? Sagittal and coronal reformats were then constructed.? For radiation dose reduction, the following was used:? automated exposure control, adjustment of mA and/or kV according to patient size.? ? COMPARISON:? None. ? FINDINGS:? Image quality:? Excellent.? ? Bones:? Degenerative straightening of the usual cervical lordosis.? Otherwise normal alignment.? No listhesis.? Vertebral body heights maintained.? No fracture. ? Soft tissues:? Prevertebral soft tissues are normal in thickness.? No paravertebral hematomas.? No apical pneumothoraces.? ? ? IMPRESSION:? No CT evidence of acute traumatic cervical spine injury. ? Dictated by: Ronni Dawson M.D. on 02/06/2022 at 15:52 ? ? Approved by: Ronni Dawson M.D. on 02/06/2022 at 15:59 ? CT scan - head: Radiologist's Impression: [address] [address] [address] Scan Report Signed Patient: Ana M Gale MR#: [id number] : 1940 Acct:[id number] Age/Sex: 81 / F Date of Service: 02/06/22 Loc: ED Accession Number: [id number] ?? Procedure: CT head/brain wo con Ordering Provider: Ruth Ann Aj D.O. PROCEDURE:? CT HEAD/BRAIN WO CON ? INDICATIONS:? fall hit head on thinners ? TECHNIQUE:? Noncontrast 4.5 mm thick angled axial sections acquired from the foramen magnum to the vertex, with coronal and sagittal reformats.? For radiation dose reduction, the following was used:? automated exposure control, adjustment of mA and/or kV according to patient size.? ? COMPARISON:? None. ? FINDINGS:? Image quality:? Excellent.? ? CSF spaces:? Basal cisterns are patent.? No extra-axial fluid collections.? The ventricles are symmetric in size and shape.? ? Brain:? No intracranial bleeds or masses.? There is cerebral volume loss for age, with resultant ventricular and sulcal prominence.? There are periventricular and deep white matter chronic small vessel ischemic changes.? There is intracranial internal carotid artery atherosclerosis.? ? Skull and face:? Calvarium and visualized facial bones appear intact, without suspicious lesions.? ? Sinuses:? Visualized sinuses and mastoids are clear.? ? IMPRESSION:? No acute intracranial finding. ? ? Dictated by: Ronni Dawson M.D. on 02/06/2022 at 15:50 ? ? MDM Narrative Medical decision making narrative: Patient had a mechanical fall, with a laceration on warfarin. Head CT and C-spine are negative. Laceration is easily closed. No need for any further workup this time. Discharge Plan Departure Patient Disposition: Home Clinical Impression: Laceration, Closed head injury Instructions: DI for Laceration Repair, Closed Head Injury Activity Restrictions/Additional Instructions: *You have been diagnosed with laceration closed head injury *What to do: Recommend going home to rest. Have your sutures removed in about 5-7 days either by PCP walk-in clinic or emergency department. He may put antibiotic ointment on it 1-2 times daily. Please continue to check your warfarin level with her PCP *Continue to take medications as directed *Follow up with your primary care provider in 2-3 days or call [phone] *Return to ER if you should have increasing headache nausea vomiting weakness or any new, worsening or concerning symptoms Prescriptions: No Action multivitamin [Multiple Vitamins] 1 EACH tablet 1 tab PO DAILY Qty: 0 carvedilol [Coreg] 12.5 mg tablet 12.5 mg PO BID Qty: 180 3RF losartan 25 mg tablet 25 mg PO DAILY Qty: 90 3RF cephalexin 500 mg capsule 500 mg PO BEDTIME Qty: 30 0RF estradiol 0.01 % (0.1 mg/gram) cream 1 g vaginal 2XW Qty: 42.5 11RF calcium citrate 250 mg calcium tablet 500 mg PO BID cholecalciferol (vitamin D3) 2,000 unit capsule 2,000 unit PO BID fluticasone propionate 50 mcg/actuation spray,suspension 2 spray NASAL DAILY PRN (Reason: Nasal Congestion) furosemide [Lasix] 20 mg tablet 20 mg PO PRN PRN (Reason: Edema, fluid retention) warfarin 5 mg tablet 7.5 mg PO DAILY cranberry extract PO d-mannose 500 mg capsule PO ascorbic acid (vitamin C) PO Referrals: Rochelle Ren MD [Primary Care Provider] - Visit Report Forms: Patient Portal/API
[2022-02-06 16:56] VITALS: BP 141/75; PULSE 78; RESP 16; O2SAT 99
== END 2022-02-06 16:57 | disposition home or self-care (01) ==
PROVIDERS: Emergency Provider Emergency Medicine; Family Provider Student in an Organized Health Care Education/Training Program; PCP Student in an Organized Health Care Education/Training Program
DX: S01.81XA Laceration without foreign body of other part of head, initial encounter (principal); S09.90XA Unspecified injury of head, initial encounter; W18.09XA Striking against other object with subsequent fall, initial encounter
CPT/HCPCS: 12013; 70450; 72125; 99284

== ENCOUNTER 2022-04-11 19:19 | Inpatient (IN) | payer MEDICARE, SELFPAY ==
--- NOTE | 2022-04-11 | DI.RAD.S_ITS ---
PROCEDURE: XR FEMUR RT MIN 2V INDICATIONS: pain TECHNIQUE: 5 views of the femur were acquired. COMPARISON: [facility], JAYESH, XR HIP W PEL IF DONE RT 2V, 04/11/2022, 19:59. [facility], JAYESH, FEMUR LEFT, 10/07/2007, 9:42. FINDINGS: Bones: A right hip prosthesis is redemonstrated. There is an associated mildly displaced periprosthetic fracture along the femoral component involving the proximal right femoral shaft. The distal femur appears intact. A right knee prosthesis is also demonstrated without associated periprosthetic fracture. Soft tissues: There are scattered vascular calcifications. IMPRESSION: 1. Periprosthetic fracture in the proximal right femoral shaft. Dictated by: Thomas Marrero M.D. on 04/11/2022 at 22:47 Approved by: Thomas Marrero M.D. on 04/11/2022 at 22:48
[2022-04-11 19:24] VITALS: BP 170/74; PULSE 85; RESP 16; TEMP 36.6; O2SAT 96; BMI 29.2
--- NOTE | 2022-04-11 19:38 | ED.FALL ---
HPI - Fall General Chief Complaint: Fall Stated Complaint: GLF Time Seen by Provider: 04/11/22 19:26 Source: EMS Mode of arrival: EMS History of Present Illness HPI Narrative: 81-year-old female nonsmoker with history of chronic AFib on warfarin, hypertension, mitral valve stenosis presents by EMS for evaluation of injury sustained as the result of a ground level fall just prior to arrival. She had been in her normal state of health and denies any prodromal symptoms such as dizziness, weakness, lightheadedness, chest pain or shortness of breath. She lost her balance when her feet got caught up underneath her and she landed on her right hip. She now has significant pain, rotation of her right lower extremity and inability to ambulate. She denies any head neck or back pain. She states she absolutely did not strike her head and has full recall of the event. She denies blurred vision, trouble speech nor nausea, vomiting or diarrhea. She is activated as a modified trauma given fall, age greater than 65 and suspected injury Related Data Home Medications Medication Instructions Recorded Confirmed multivitamin (Multiple Vitamins 1 tab PO DAILY ##0 08/05/17 11/10/21 tablet) calcium citrate 500 mg PO BID 09/25/18 11/10/21 cholecalciferol (vitamin D3) 50 2,000 unit PO BID 09/25/18 11/10/21 mcg (2,000 unit) capsule fluticasone propionate 50 2 spray intranasal DAILY PRN Nasal 11/10/18 11/10/21 mcg/actuation nasal Congestion spray,suspension furosemide 20 mg tablet (Lasix) 20 mg PO PRN PRN Edema, fluid 11/10/18 11/10/21 retention warfarin 5 mg tablet 7.5 mg PO DAILY 11/29/20 11/10/21 ascorbic acid (vitamin C) PO 12/14/20 11/10/21 cranberry extract PO 12/14/20 11/10/21 d-mannose 500 mg capsule mg PO 12/14/20 11/10/21 Previous Rx's Medication Instructions Recorded carvedilol 12.5 mg tablet (Coreg) 12.5 mg PO BID #180 tabs 07/14/19 losartan 25 mg tablet 25 mg PO DAILY #90 tabs 11/24/19 cephalexin 500 mg capsule 500 mg PO BEDTIME #30 caps 07/20/21 estradiol 0.01% (0.1 mg/gram) 1 g vaginal 2XW #42.5 grams 11/07/21 vaginal cream Allergies Allergy/AdvReac Type Severity Reaction Status Date / Time acetaminophen Allergy Mild UPSET Verified 04/11/22 19:27 STOMACH digoxin Allergy Mild SWELLING Verified 04/11/22 19:27 LOWER EXTRMITIES hydromorphone Allergy Mild N/V Verified 04/11/22 19:27 adhesive Allergy Unknown SENSITVE Verified 04/11/22 19:27 TO TAPE latex Allergy Rash Verified 04/11/22 19:27 nitrofurantoin Allergy Verified 04/11/22 19:27 [From Macrobid] phenytoin Allergy Verified 04/11/22 19:27 ibuprofen AdvReac Mild UNABLE TO Verified 04/11/22 19:27 TAKE DUE TO COUMADIN meperidine AdvReac Mild GI UPSET Verified 04/11/22 19:27 WITH VOMITING xylitol AdvReac Mild diarrhea Verified 04/11/22 19:27 and upset stomach Review of Systems Review of Systems Narrative: GENERAL: Denies chills, fatigue, malaise, fever, sweats. HEENT: Denies sinus pain, ear pain, sore throat, difficulty swallowing, dizziness. RESPIRATORY: Denies dyspnea, cough, wheezing, hemoptysis, sputum. CARDIOVASCULAR: Denies chest pain, palpitations, orthopnea, edema, GASTROINTESTINAL: Denies nausea, vomiting, abdominal pain, diarrhea, constipation, melena. : Denies dysuria, frequency, incontinence, hematuria, urinary retention. MUSCULOSKELETAL: See HPI SKIN: Denies rash, skin lesions, or other NEUROLOGIC: Denies weakness, headache, numbness, change in speech, confusion, seizures, incoordination. PSYCHIATRIC: No concerning psychosocial issues. 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) Fractures (10/08/07) Hayfever (1959) Heart failure, systolic History of UTI Lichen sclerosus et atrophicus (2011) Measles (1949) Microscopic hematuria Mitral stenosis Mixed incontinence Osteoarthritis (1996) Osteopenia Osteoporosis Postmenopausal atrophic vaginitis Valvular heart disease Surgical History Anesthesia History of carpal tunnel repair (1979) History of carpal tunnel repair (03/23/04) History of cataract removal with insertion of prosthetic lens (01/02/12) History of cataract removal with insertion of prosthetic lens (12/19/11) History of hip replacement (05/08/10) History of hip surgery (05/16/08) History of hip surgery (10/08/07) History of incision and drainage (10/03/18) History of knee replacement (02/11/12) History of knee replacement (07/19/08) History of nasal surgery (10/03/11) History of orthopedic surgery (10/17/09) Status post vaginal hysterectomy (1974) Family History Father Family history of CT (myocardial infarction) Heart disease Congestive heart failure Mother Cancer Myeloma Necrotizing fasciitis Brother MVA (motor vehicle accident) Sister No problems noted. Daughter No problems noted. Son No problems noted. Social History marital status: number of children: 2 household members: spouse occupational status: previously employed Smoking Status: Former smoker Tobacco: How many years used: 10 alcohol intake: current caffeine: Yes Smoking Status: Former smoker alcohol intake frequency: a few times a week Substance Use Type: does not use Exam Narrative Exam Narrative: GENERAL: [81] year old patient appears stated age. Well-developed patient, in mild distress. GCS 15 HEAD: Atraumatic. Normocephalic. EYES: Pupils equal round and reactive. Extraocular motions intact. No scleral icterus. No injection or drainage. ENT: Nose without bleeding, purulent drainage. Throat without erythema, tonsillar hypertrophy or exudate. Airway patent. NECK: Trachea midline. Non tender CARDIOVASCULAR: Regular rate and rhythm without murmurs, gallops, or rubs. RESPIRATORY: Clear to auscultation. Breath sounds equal bilaterally. No wheezes, rales, or rhonchi. GASTROINTESTINAL: Abdomen soft, non-tender, nondistended. EXTREMITIES: Severe pain in right hip with external rotation, possibly some shortening. No pain or swelling mid thigh, knee, calf or ankle. She does have decreased ability to move her foot and has some numbness in her foot, cap refill is intact. BACK: Nontender without deformity or crepitance. No flank tenderness. NEURO: AOx3. SKIN: No rash or erythema of visible areas Initial Vital Signs Initial Vital Signs: Vital Signs Temperature 97.8 F 04/11/22 19:24 Pulse Rate 85 04/11/22 19:24 Respiratory Rate 16 04/11/22 19:24 Blood Pressure 170/74 H 04/11/22 19:24 Pulse Oximetry 96 04/11/22 19:24 Oxygen Delivery Method 04/11/22 19:24 Course Orders Ordered: ED Orders 04/11/22 19:44 Chest [XR chest 1V] Stat XR hip w pel if done RT 2V Stat 04/11/22 20:00 Complete Blood Count AUTO DIFF Stat Comprehensive Metabolic Panel Stat Prothrombin Time INR Stat 04/11/22 20:05 COVID19 -Nasal RAPID/Pre-Proc Stat 04/11/22 21:38 CT LE RT wo con Stat Acetaminophen (Acetaminophen 325 Mg Tablet) 650 mg PO Q6H PRN PRN Reason: Fever/Mild Pain (1-3) Al Hydrox/Mg Hydrox/Simethicone (Mag Hydrox/Alum/Simeth 30 Ml Udc) 30 ml PO Q6HR PRN PRN Reason: Dyspepsia Carvedilol (Carvedilol 3.125 Mg Tablet) 6.25 mg PO BID FAMILIA Hydromorphone HCl (Hydromorphone 1 Mg Inj) 1 mg IV Q4H PRN PRN Reason: Pain, Severe (7-10) Losartan Potassium (Losartan 50 Mg Tablet) 50 mg PO DAILY FAMILIA Naloxone HCl (Naloxone 0.4 Mg/Ml Vial) 0.2 mg IV Q2MIN PRN PRN Reason: Opiate Reversal Oxycodone HCl (Oxycodone Ir 5 Mg Tablet) 5 mg PO Q3H PRN PRN Reason: Pain, Moderate (4-6) Discontinued Medications Hydromorphone HCl (Hydromorphone 0.5 Mg Inj) 0.5 mg IV NOW ONE Stop: 04/11/22 21:49 Last Admin: 04/11/22 22:00 Dose: 0.5 mg Documented By: RAMY Phytonadione 10 mg/ Sodium (Chloride) 101 mls @ 202 mls/hr IV NOW ONE Stop: 04/11/22 23:05 Last Infusion: 04/12/22 00:14 Dose: 0 mls/hr Documented By: Admin: 04/11/22 23:31 Dose: 202 mls/hr Documented By: YESENIA Ondansetron HCl (Ondansetron 4 Mg/2 Ml Inj) 4 mg IV NOW ONE Stop: 04/11/22 19:45 Last Admin: 04/11/22 20:02 Dose: 4 mg Documented By: RAMY Consultations Consultation #1: On-call orthopedist, Dr. Shi, consulted, she has reviewed history and physical exam as well as imaging, recommend CT of lower extremity, holding Coumadin, administration of vitamin K and will review images upon completion Consultation #2: Dr. Shi has reviewed CT of lower extremity and states she is happy with the appearance and there is no indication based on what she is seeing the patient would need to be transferred, recommends keeping patient here in admitting to hospitalist Consultation #3: Hospitalist happy to accept Vital Signs Vital signs: Vital Signs - 8 hr 04/11/22 19:24 04/11/22 21:54 Temperature 97.8 F Pulse Rate 85 91 H Respiratory Rate 16 22 Blood Pressure 170/74 H 172/74 H Pulse Oximetry 96 96 Oxygen Delivery Method Room Air Nasal Cannula Oxygen Flow Rate 1 - Fall Lab Data Result diagrams: 04/11/22 20:00 04/11/22 20:00 Labs: Lab Results 04/11/22 04/11/22 04/11/22 Range/Units 20:00 20:00 20:00 WBC 8.9 (4.5-11.0) X10^3/uL RBC 3.84 L (4.0-5.2) X10^6/uL Hgb 12.7 (12.0-16.0) g/dL Hct 38.4 (36-46) % MCV 100.0 (80-100) fL MCH 33.0 (26-34) PG MCHC 33.0 (30-36) % RDW 13.0 (11.6-14.8) % Plt Count 199 (150-400) X10^3/uL Neut % (Auto) 74.5 (50-75) % Lymph % (Auto) 16.1 L (25-40) % [place] % (Auto) 6.1 (3-14) % Eos % (Auto) 2.5 (2-4) % Baso % (Auto) 0.8 (0-2) % Neut # (Auto) 6600 (4027-4296) /uL Lymph # (Auto) 1400 (4675-9462) /uL [place] # (Auto) 500 (0-900) /uL Eos # (Auto) 200 (0-450) /uL Baso # (Auto) 100 (0-100) /uL PT 42.1 H (10.1-12.7) SECONDS INR 3.6 H (0.9-1.3) Sodium 136 L (137-145) mmol/L Potassium 4.4 (3.4-5.1) mmol/L Chloride 104 (98-107) mmol/L Carbon Dioxide 27 (22-32) mmol/L BUN 21 H (7-17) mg/dL Creatinine 0.70 (0.52-1.04) mg/dL Estimated GFR > 60 (>60) mL/min BUN/Creatinine Ratio 30.0 H (6-22) Glucose 112 H (80-110) mg/dL Calcium 9.0 (8.4-10.2) mg/dL Total Bilirubin 0.4 (0.2-1.3) mg/dL AST 31 (14-36) IU/L ALT 26 (<35) IU/L Alkaline Phosphatase 103 (38-126) U/L Total Protein 7.3 (6.3-8.2) g/dL Albumin 3.8 (3.5-5.0) g/dL Globulin 3.5 (1.7-4.1) g/dL Albumin/Globulin Ratio 1.1 (1.0-2.8) SARS-CoV-2 (PCR) (Negative) 04/11/22 Range/Units 20:05 WBC (4.5-11.0) X10^3/uL RBC (4.0-5.2) X10^6/uL Hgb (12.0-16.0) g/dL Hct (36-46) % MCV (80-100) fL MCH (26-34) PG MCHC (30-36) % RDW (11.6-14.8) % Plt Count (150-400) X10^3/uL Neut % (Auto) (50-75) % Lymph % (Auto) (25-40) % [place] % (Auto) (3-14) % Eos % (Auto) (2-4) % Baso % (Auto) (0-2) % Neut # (Auto) (2237-8461) /uL Lymph # (Auto) (5948-3125) /uL [place] # (Auto) (0-900) /uL Eos # (Auto) (0-450) /uL Baso # (Auto) (0-100) /uL PT (10.1-12.7) SECONDS INR (0.9-1.3) Sodium (137-145) mmol/L Potassium (3.4-5.1) mmol/L Chloride (98-107) mmol/L Carbon Dioxide (22-32) mmol/L BUN (7-17) mg/dL Creatinine (0.52-1.04) mg/dL Estimated GFR (>60) mL/min BUN/Creatinine Ratio (6-22) Glucose (80-110) mg/dL Calcium (8.4-10.2) mg/dL Total Bilirubin (0.2-1.3) mg/dL AST (14-36) IU/L ALT (<35) IU/L Alkaline Phosphatase (38-126) U/L Total Protein (6.3-8.2) g/dL Albumin (3.5-5.0) g/dL Globulin (1.7-4.1) g/dL Albumin/Globulin Ratio (1.0-2.8) SARS-CoV-2 (PCR) Negative (Negative) Imaging Data Extremity x-ray #1: Radiologist's Impression: [address] [address] XRay Report Signed Patient: Ana M Gale MR#: [id number] : 1940 Acct:[id number] Age/Sex: 81 / F Date of Service: 04/11/22 Loc: ED Accession Number: [id number] ?? Procedure: XR hip w pel if done RT 2V Ordering Provider: Leo Zavala D.O. PROCEDURE:? XR HIP W PEL IF DONE RT 2V ? INDICATIONS:? fall with pain, rotation ? TECHNIQUE:? AP pelvis with lateral view of the right hip. ? COMPARISON:? [facility], CR, XR HIP W PEL IF DONE LOREN 3TO4V, 02/25/2020, 15:45. ? FINDINGS:? ? Bones:? A right hip prosthesis is redemonstrated.? There is a mildly displaced periprosthetic fracture along the femoral component involving the proximal right femoral shaft.? No dislocations.? Postsurgical changes are also redemonstrated status post ORIF of the proximal left femur.? Visualized bony pelvis appears intact. ? Soft tissues:? The visualized bowel gas pattern is normal.? There are diffuse vascular calcifications. ? ? IMPRESSION:? ? 1. Mildly displaced periprosthetic fracture in the proximal right femoral shaft. ? Dictated by: Thomas Marrero M.D. on 04/11/2022 at 22:35 ? ? Approved by: Thomas Marrero M.D. on 04/11/2022 at 22:36 ? Extremity x-ray #2: Radiologist's Impression: Ana M Gale??81??F??1940 ? Allergy/Adv: acetaminophen, digoxin, hydromorphone, adhesive, latex, nitrofurantoin, phenytoin, ibuprofen, meperidine, xylitol (More??) Close Lower Extremity CT (Signed) Thomas Marrero - 04/11/22 Hip X-Ray (Signed) Thomas Marrero - 04/11/22 Chest X-Ray (Signed) Thomas Marrero - 04/11/22 Femur X-Ray (Signed) Thomas Marrero - 04/11/[address] (Signed) Ronni Dawson - 02/06/[address] (Signed) Ronni Dawson - 02/06/22 Mammogram Screening (Signed) Thomas Marrero - 02/04/21 Bone Densitometry (Signed) Edith Figueroa - 11/03/20 Abdomen/Pelvis CT (Signed) Arpit Ibarra - 10/13/20 KUB X-Ray (Signed) Bandar Prado - 08/30/20 Echocardiogram Ultrasound (Signed) Ada Mendoza - 03/24/20 Radiology Report (Cancelled) Juancarlos Morgan - 03/15/20 Myocardial Perfusion Scan Nuc Med (Signed) Juancarlos Morgan - 03/15/20 Myocardial Perfusion Scan Nuc Med (Cancelled) 03/15/20 Hip X-Ray (Signed) LopezEsteban - 02/25/20 Chest X-Ray (Signed) Federico Pope - 02/05/[address] (Signed) Bandar Prado - 04/14/19 Mammogram Screening (Signed) Bertha Lyn - 12/24/18 Lumbar Spine MRI (Signed) Federico Pope - 12/13/18 Bone Densitometry 07/07/18 DEXA Result 07/07/18 Wrist X-Ray (Signed) Rachel Ivey - 04/05/18 Head/Neck Ultrasound (Signed) Bandar Prado - 02/11/18 Echocardiogram Ultrasound (Signed) Ignacio Lawrence - 01/16/18 Peripheral Vascular Ultrasound (Signed) Harmony Aden - 12/26/17 Launch[facility] [address] XRay Report Signed Patient: Ana M Gale MR#: [id number] : 1940 Acct:[id number] Age/Sex: 81 / F Date of Service: 04/11/22 Loc: ED Accession Number: [id number] ?? Procedure: XR femur RT min 2V Ordering Provider: Leo Zavala D.O. PROCEDURE:? XR FEMUR RT MIN 2V ? INDICATIONS:? pain ? TECHNIQUE:? 5 views of the femur were acquired.? ? COMPARISON:? [facility], CR, XR HIP W PEL IF DONE RT 2V, 04/11/2022, 19:59.? [facility], , FEMUR LEFT, 10/07/2007, 9:42. ? FINDINGS:? ? Bones:? A right hip prosthesis is redemonstrated.? There is an associated mildly displaced periprosthetic fracture along the femoral component involving the proximal right femoral shaft.? The distal femur appears intact.? A right knee prosthesis is also demonstrated without associated periprosthetic fracture. ? Soft tissues:? There are scattered vascular calcifications. ? IMPRESSION:? ? 1. Periprosthetic fracture in the proximal right femoral shaft. ? ? Dictated by: Thomas Marrero M.D. on 04/11/2022 at 22:47 ? ? Approved by: Thomas Marrero M.D. on 04/11/2022 at 22:48 ? CT LE: Radiologist's Impression: [address] [address] [address] Scan Report Signed Patient: Ana M Gale MR#: [id number] : 1940 Acct:[id number] Age/Sex: 81 / F Date of Service: 04/11/22 Loc: ED Accession Number: [id number] ?? Procedure: CT LE RT wo con Ordering Provider: Leo Zavala D.O. PROCEDURE:? CT LE RT WO CON ? INDICATIONS:? per ortho ? TECHNIQUE:? Noncontrast 3 mm axial sections acquired of the right femur, with coronal and sagittal reformats. ? ? COMPARISON:? [facility], CR, XR HIP W PEL IF DONE RT 2V, 04/11/2022, 19:59[facility], CR, XR FEMUR RT MIN 2V, 04/11/2022, 20:25. ? FINDINGS:? Image quality:? There is metallic streak artifact from patient's right hip prosthesis limiting evaluation.? ? Bones:? A right hip prosthesis is redemonstrated with associated metallic streak artifact.? There is a comminuted subtrochanteric periprosthetic fracture within the proximal right femoral shaft.? No dislocations.? A right knee prosthesis is also redemonstrated without associated periprosthetic fractures or suspicious lucencies.? Visualized bony pelvis appears intact. ? Soft tissues:? There is soft tissue swelling and edema within the musculature along the fracture.? No free fluid within the visualized pelvis.? There is a right adnexal cyst measuring up to 2.9 cm. ? IMPRESSION:? ? 1. Comminuted subtrochanteric periprosthetic fracture within the proximal right femur. ? ? Dictated by: Thomas Marrero M.D. on 04/11/2022 at 23:17 ? ? Approved by: Thomas Marrero M.D. on 04/11/2022 at 23:23 ? MDM Narrative Medical decision making narrative: 81-year-old female with chronic AFib on anticoagulation presents with a ground level fall resulting in right hip injury. Imaging demonstrates a periprosthetic fracture that is closed, isolated and neurovascularly intact. I have consulted with orthopedics who have reviewed images and states she is appropriate to keep it our facility and requests admission to the hospitalist, hospitalist happy to accept. Discharge Plan Departure Patient Disposition: Admitted As Inpatient Clinical Impression: Periprosthetic fracture around internal prosthetic joint Admit Date/Time: 04/11/22 23:29 Admit Provider: Dusty Carrion
--- NOTE | 2022-04-11 19:44 | DI.RAD.S_ITS ---
PROCEDURE: XR HIP W PEL IF DONE RT 2V INDICATIONS: fall with pain, rotation TECHNIQUE: AP pelvis with lateral view of the right hip. COMPARISON: [facility], CR, XR HIP W PEL IF DONE LOREN 3TO4V, 02/25/2020, 15:45. FINDINGS: Bones: A right hip prosthesis is redemonstrated. There is a mildly displaced periprosthetic fracture along the femoral component involving the proximal right femoral shaft. No dislocations. Postsurgical changes are also redemonstrated status post ORIF of the proximal left femur. Visualized bony pelvis appears intact. Soft tissues: The visualized bowel gas pattern is normal. There are diffuse vascular calcifications. IMPRESSION: 1. Mildly displaced periprosthetic fracture in the proximal right femoral shaft. Dictated by: Thomas Marrero M.D. on 04/11/2022 at 22:35 Approved by: Thomas Marrero M.D. on 04/11/2022 at 22:36
--- NOTE | 2022-04-11 19:44 | DI.RAD.S_ITS ---
PROCEDURE: XR CHEST 1V INDICATIONS: trauma TECHNIQUE: One view of the chest was acquired. COMPARISON: [facility], CR, XR CHEST 1V, 02/05/2020, 14:44. FINDINGS: Surgical changes and devices: None. Lungs and pleura: There is interstitial prominence redemonstrated bilaterally compatible with chronic interstitial lung disease. There is also increased pulmonary vascular prominence suggestive of mild pulmonary edema. No pleural effusions or pneumothorax. Mediastinum: Mediastinal contours are unchanged. Heart size is enlarged. Bones and chest wall: No displaced fracture identified. No suspicious bony lesions. Overlying soft tissues appear unremarkable. IMPRESSION: Note 1. No definite acute traumatic abnormality. 2. Interstitial prominence likely representing chronic interstitial lung disease redemonstrated. 3. Suspected mild pulmonary edema. Dictated by: Thomas Marrero M.D. on 04/11/2022 at 22:37 Approved by: Thomas Marrero M.D. on 04/11/2022 at 22:38
[2022-04-11] MEDS: ONDANSETRON 4 MG/2 ML INJ IV (20:02)
[2022-04-11 20:08] LABS: Add Manual Diff / Slide Review NO; Basophils Absolute Auto 100 /uL (0-100); Basophils Percent Auto 0.8 % (0-2); Eosinophils Absolute Auto 200 /uL (0-450); Eosinophils Percent Auto 2.5 % (2-4); Hematocrit 38.4 % (36-46); Hemoglobin 12.7 g/dL (12.0-16.0); Lymphocytes Absolute Auto 1400 /uL (1100-4500); Lymphocytes Percent Auto 16.1 % (25-40); Monocytes Absolute Auto 500 /uL (0-900); Monocytes Percent Auto 6.1 % (3-14); Neutrophils Absolute Auto 6600 /uL (1500-7000); Neutrophils Percent Auto 74.5 % (50-75); Platelet Count 199 X10^3/uL (150-400); Red Blood Cell Count 3.84 X10^6/uL (4.0-5.2); White Blood Cell Count 8.9 X10^3/uL (4.5-11.0)
[2022-04-11 20:14] LABS: INR 3.6 (0.9-1.3); Prothrombin Time 42.1 SECONDS (10.1-12.7)
[2022-04-11 20:19] LABS: Alanine Aminotransferase 26 IU/L (<35); Albumin 3.8 g/dL (3.5-5.0); Albumin Globulin Ratio 1.1 (1.0-2.8); Alkaline Phosphatase 103 U/L (38-126); Aspartate Aminotransferase 31 IU/L (14-36); Bilirubin Total 0.4 mg/dL (0.2-1.3); Blood Urea Nitrogen 21 mg/dL (7-17); Carbon Dioxide 27 mmol/L (22-32); Chloride 104 mmol/L (98-107); Estimated Glomerular Filt Rate > 60 mL/min (>60); Globulin 3.5 g/dL (1.7-4.1); Glucose 112 mg/dL (80-110); HEMOLYSIS < 15 (0-50); Potassium 4.4 mmol/L (3.4-5.1); Sodium 136 mmol/L (137-145); Total Protein 7.3 g/dL (6.3-8.2)
[2022-04-11 20:22] LABS: COVID19 -Nasal RAPID Negative (Negative)
--- NOTE | 2022-04-11 21:38 | DI.CT.S_ITS ---
PROCEDURE: CT LE RT WO CON INDICATIONS: per ortho TECHNIQUE: Noncontrast 3 mm axial sections acquired of the right femur, with coronal and sagittal reformats. COMPARISON: [facility], CR, XR HIP W PEL IF DONE RT 2V, 04/11/2022, 19:59[facility], CR, XR FEMUR RT MIN 2V, 04/11/2022, 20:25. FINDINGS: Image quality: There is metallic streak artifact from patient's right hip prosthesis limiting evaluation. Bones: A right hip prosthesis is redemonstrated with associated metallic streak artifact. There is a comminuted subtrochanteric periprosthetic fracture within the proximal right femoral shaft. No dislocations. A right knee prosthesis is also redemonstrated without associated periprosthetic fractures or suspicious lucencies. Visualized bony pelvis appears intact. Soft tissues: There is soft tissue swelling and edema within the musculature along the fracture. No free fluid within the visualized pelvis. There is a right adnexal cyst measuring up to 2.9 cm. IMPRESSION: 1. Comminuted subtrochanteric periprosthetic fracture within the proximal right femur. Dictated by: Thomas Marrero M.D. on 04/11/2022 at 23:17 Approved by: Thomas Marrero M.D. on 04/11/2022 at 23:23
[2022-04-11 21:54] VITALS: BP 172/74; PULSE 91; RESP 22; O2SAT 96
[2022-04-11] MEDS: HYDROMORPHONE 0.5 MG INJ IV (22:00)
[2022-04-11] MEDS: PHYTONADIONE (VIT K1) 10 MG in SODIUM CHLORIDE 0.9% 100 ML 202 MG IV (23:31)
--- NOTE | 2022-04-11 23:43 | P.HP_ITS ---
History of Present Illness History of Present Illness Date Patient Seen: 04/11/22 Date of Onset of Symptoms: 04/11/22 Chief complaint: GLF Narrative: 81-year-old female nonsmoker with history of chronic AFib on warfarin, hypertension, mitral valve stenosis presents by EMS for evaluation of injury sustained as the result of a ground level fall just prior to arrival.? She had been in her normal state of health and denies any prodromal symptoms such as dizziness, weakness, lightheadedness, chest pain or shortness of breath.? She lost her balance when her feet got caught up underneath her and she landed on her right hip.? She now has significant pain, rotation of her right lower extremity and inability to ambulate.? She denies any head neck or back pain.? She states she absolutely did not strike her head and has full recall of the event.? She denies blurred vision, trouble speech nor nausea, vomiting or diarrhea.? She is activated as a modified trauma given fall, age greater than 65 and suspected injury. Patient pain significantly improved after pain medication given in the ER. Able to confirm her details when I talked to her. She supposed to go to a thyroid surgery at [facility] after she was diagnosed with thyroid nodule on ultrasound in December 2021, shantell the details at this time. I do not have access to those records. 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) Fractures (10/08/07) Hayfever (1960) Heart failure, systolic History of UTI Lichen sclerosus et atrophicus (2011) Measles (1949) Microscopic hematuria Mitral stenosis Mixed incontinence Osteoarthritis (1996) Osteopenia Osteoporosis Postmenopausal atrophic vaginitis Valvular heart disease Surgical History Anesthesia History of carpal tunnel repair (1979) History of carpal tunnel repair (03/23/04) History of cataract removal with insertion of prosthetic lens (01/02/12) History of cataract removal with insertion of prosthetic lens (12/19/11) History of hip replacement (05/08/10) History of hip surgery (05/16/08) History of hip surgery (10/08/07) History of incision and drainage (10/03/18) History of knee replacement (02/11/12) History of knee replacement (07/19/08) History of nasal surgery (10/03/11) History of orthopedic surgery (10/17/09) Status post vaginal hysterectomy (1974) Family & Social History Family History Father Family history of NV (myocardial infarction) Heart disease Congestive heart failure Mother Cancer Myeloma Necrotizing fasciitis Brother MVA (motor vehicle accident) Sister No problems noted. Daughter No problems noted. Son No problems noted. Social History: household members spouse Safety & Behavioral: Feels Safe in Current Yes Environment Been Physically Hurt or No Threatened By a Person Tobacco & Substance use: Smoking Status Former smoker alcohol intake current alcohol intake frequency a few times a week Substance Use Type does not use Meds Home Medications and Allergies Home Medications Medication Instructions Recorded Confirmed Type multivitamin (Multiple Vitamins 1 tab PO DAILY ##0 08/05/17 04/12/22 History tablet) calcium citrate 500 mg PO BID 09/25/18 11/10/21 History cholecalciferol (vitamin D3) 50 2,000 unit PO BID 09/25/18 04/12/22 History mcg (2,000 unit) capsule fluticasone propionate 50 2 spray intranasal DAILY PRN Nasal 11/10/18 04/12/22 History mcg/actuation nasal Congestion spray,suspension furosemide 20 mg tablet (Lasix) 20 mg PO PRN PRN Edema, fluid 11/10/18 11/10/21 History retention carvedilol 12.5 mg tablet (Coreg) 12.5 mg PO BID #180 tabs 07/14/19 04/12/22 Rx losartan 25 mg tablet 25 mg PO DAILY #90 tabs 11/24/19 04/12/22 Rx warfarin 5 mg tablet 7.5 mg PO DAILY 11/29/20 04/12/22 History ascorbic acid (vitamin C) PO 12/14/20 11/10/21 History cranberry extract PO 12/14/20 11/10/21 History d-mannose 500 mg capsule mg PO 12/14/20 11/10/21 History cephalexin 500 mg capsule 500 mg PO BEDTIME #30 caps 07/20/21 11/10/21 Rx estradiol 0.01% (0.1 mg/gram) 1 g vaginal 2XW #42.5 grams 11/07/21 04/12/22 Rx vaginal cream omega-3 fatty acids PO 04/12/22 History Allergies Allergy/AdvReac Type Severity Reaction Status Date / Time acetaminophen Allergy Mild UPSET Verified 04/11/22 19:27 STOMACH digoxin Allergy Mild SWELLING Verified 04/11/22 19:27 LOWER EXTRMITIES hydromorphone Allergy Mild N/V Verified 04/11/22 19:27 adhesive Allergy Unknown SENSITVE Verified 04/11/22 19:27 TO TAPE latex Allergy Rash Verified 04/11/22 19:27 nitrofurantoin Allergy Verified 04/11/22 19:27 [From Macrobid] phenytoin Allergy Verified 04/11/22 19:27 ibuprofen AdvReac Mild UNABLE TO Verified 04/11/22 19:27 TAKE DUE TO COUMADIN meperidine AdvReac Mild GI UPSET Verified 04/11/22 19:27 WITH VOMITING xylitol AdvReac Mild diarrhea Verified 04/11/22 19:27 and upset stomach Review of Systems Review of Systems Narrative: All other systems reviewed, negative other than as mentioned above in HPI Exam Vital Signs (past 8 hours): - 04/11/22 19:24 Temperature 97.8 F Pulse Rate 85 Respiratory Rate 16 Blood Pressure 170/74 H Pulse Oximetry 96 Oxygen Delivery Method Room Air Oxygen Delivery Method Room Air Narrative Exam Narrative: Patient is comfortable, lying in the bed, able to make a reasonable conversation, follows commands. Right lower extremity movements are limited because of the pain. Does have some pedal edema nonpitting. Constitutional, HEENT, eyes, neck, chest, cardiovascular, respiratory, GI, , skin, neuro, extremity, psych exam within normal limits except as mentioned above. Objective Labs Result Diagrams: 04/12/22 06:00 04/11/22 20:00 Labs: Laboratory Results - last 24 hr 04/11/22 04/11/22 04/11/22 20:00 20:00 20:00 WBC 8.9 RBC 3.84 L Hgb 12.7 Hct 38.4 MCV 100.0 MCH 33.0 MCHC 33.0 RDW 13.0 Plt Count 199 Neut % (Auto) 74.5 Lymph % (Auto) 16.1 L Wayne % (Auto) 6.1 Eos % (Auto) 2.5 Baso % (Auto) 0.8 Neut # (Auto) 6600 Lymph # (Auto) 1400 Wayne # (Auto) 500 Eos # (Auto) 200 Baso # (Auto) 100 PT 42.1 H INR 3.6 H Sodium 136 L Potassium 4.4 Chloride 104 Carbon Dioxide 27 BUN 21 H Creatinine 0.70 Estimated GFR > 60 BUN/Creatinine Ratio 30.0 H Glucose 112 H Calcium 9.0 Total Bilirubin 0.4 AST 31 ALT 26 Alkaline Phosphatase 103 Total Protein 7.3 Albumin 3.8 Globulin 3.5 Albumin/Globulin Ratio 1.1 SARS-CoV-2 (PCR) 04/11/22 20:05 WBC RBC Hgb Hct MCV MCH MCHC RDW Plt Count Neut % (Auto) Lymph % (Auto) Wayne % (Auto) Eos % (Auto) Baso % (Auto) Neut # (Auto) Lymph # (Auto) Wayne # (Auto) Eos # (Auto) Baso # (Auto) PT INR Sodium Potassium Chloride Carbon Dioxide BUN Creatinine Estimated GFR BUN/Creatinine Ratio Glucose Calcium Total Bilirubin AST ALT Alkaline Phosphatase Total Protein Albumin Globulin Albumin/Globulin Ratio SARS-CoV-2 (PCR) Negative Assessment & Plan Assessment and plan (1) Closed right femoral fracture: Status: Acute Assessment & Plan narrative: Mildly displaced periprosthetic fracture in the proximal right femoral shaft - ortho consulted, surgery in the morning. Patient functional capacity Mets greater than 4, denies any cardiac symptoms at this time. She had a cardiology evaluation and echocardiogram in December 2021, I do not have access to records, we will try to touch base with Cardiology in the morning for preop clearance as patient does have history of mitral stenosis, cardiomyopathy. In my opinion patient probably does not need any further testing to proceed with the surgery but I do not have recent data related to echocardiogram and further details of mitral stenosis. Our team will reach out to Cardiology in the morning. Patient is on warfarin, elevated INR -holding Coumadin, vitamin K given in the ER. Recheck INR in the morning. Chronic atrial fibrillation on anticoagulation, rate controlled History of cardiomyopathy -on Lasix, holding Lasix at this time. Patient NPO, maintenance fluids at 75 cc/hour for 1 L. Patient INR elevated -SCDs for DVT prophylaxis. Ppi for GI prophylaxis. Patient is full code. Care plan extensively discussed with the patient and also at bedside, answered all questions. Time Spent With Patient Critical Care time: I spent a total of [] minutes of critical care time on this patient's care today; this time is exclusive of procedural time.
[2022-04-12] VITALS (8 sets, daily range): BP systolic 118–184; BP diastolic 59–146; PULSE 70–87; RESP 16–20; TEMP 36.3–37.1; O2SAT 93–94; BMI 29.2
[2022-04-12] MEDS: LACTATED RINGERS 1,000 ML 75 ML IV (01:52)
[2022-04-12 06:21] LABS: Lymphocytes Percent Auto 17.9 % (25-40); Mean Corpuscular HGB Conc 33.3 % (30-36); Mean Corpuscular Hemoglobin 33.5 PG (26-34); Mean Corpuscular Volume 100.6 fL (80-100); Monocytes Percent Auto 11.7 % (3-14); Platelet Count 170 X10^3/uL (150-400); Red Blood Cell Count 3.58 X10^6/uL (4.0-5.2); Red Cell Distribution Width 13.1 % (11.6-14.8); White Blood Cell Count 6.4 X10^3/uL (4.5-11.0)
[2022-04-12 06:22] LABS: Add Manual Diff / Slide Review NO; Basophils Absolute Auto 0 /uL (0-100); Basophils Percent Auto 0.6 % (0-2); Eosinophils Absolute Auto 100 /uL (0-450); Eosinophils Percent Auto 0.8 % (2-4); Lymphocytes Absolute Auto 1100 /uL (1100-4500); Monocytes Absolute Auto 700 /uL (0-900); Neutrophils Absolute Auto 4400 /uL (1500-7000)
[2022-04-12 06:27] LABS: INR 1.9 (0.9-1.3); Prothrombin Time 22.2 SECONDS (10.1-12.7)
[2022-04-12 06:32] LABS: Alanine Aminotransferase 23 IU/L (<35); Albumin 3.4 g/dL (3.5-5.0); Alkaline Phosphatase 85 U/L (38-126); Aspartate Aminotransferase 31 IU/L (14-36); Bilirubin Total 1.1 mg/dL (0.2-1.3); Blood Urea Nitrogen 18 mg/dL (7-17); Calcium 8.6 mg/dL (8.4-10.2); Carbon Dioxide 28 mmol/L (22-32); Chloride 103 mmol/L (98-107); Estimated Glomerular Filt Rate > 60 mL/min (>60); Globulin 3.4 g/dL (1.7-4.1); Glucose 119 mg/dL (80-110); HEMOLYSIS < 15 (0-50); Potassium 4.2 mmol/L (3.4-5.1); Sodium 135 mmol/L (137-145); Total Protein 6.8 g/dL (6.3-8.2)
[2022-04-12] MEDS: carvediloL 3.125 MG TABLET 6.25 MG PO ×2 (08:53→20:57)
--- NOTE | 2022-04-12 10:30 | P.PN_ITS ---
Subjective Subjective Date Patient Seen: 04/12/22 Time Patient Seen: 10:31 Interval history: CC: R hip pain PCP [facility] assuming care from hospitalist Ortho still pending OR assignment - see below re: cardiac She reports feels basically ok painfree as long as she doesn't move Holding Losartan and warfarin, got Vit K, still NPO Exam Vital Signs (past 8 hours): - 04/12/22 05:49 04/12/22 08:25 Temperature 98.8 F 98.2 F Pulse Rate 70 83 Respiratory Rate 18 16 Blood Pressure 140/90 150/79 H Pulse Oximetry 94 94 Oxygen Flow Rate 0 0 Oxygen Delivery Method Room Air Oxygen Flow Rate 0 Narrative Exam Narrative: alert elder on phone HENMT Head: normocephalic and atraumatic Resp Auscultation: clear to auscultation bilaterally Percussion: percussion normal Cardio Rate: regular rate Rhythm: abnormal rhythm Heart Sounds: S1 normal and S2 normal GI Palpation: soft Auscultation: normal bowel sounds Back/Spine/Pelvis Other: R hip pain on movement Neuro General: patient alert, patient awake and patient oriented x3 Psych Speech and Movement: speech and movement normal Objective Labs Result Diagrams: 04/12/22 06:00 04/12/22 06:00 Labs: Laboratory Results - last 24 hr 04/11/22 04/11/22 04/11/22 20:00 20:00 20:00 WBC 8.9 RBC 3.84 L Hgb 12.7 Hct 38.4 MCV 100.0 MCH 33.0 MCHC 33.0 RDW 13.0 Plt Count 199 Neut % (Auto) 74.5 Lymph % (Auto) 16.1 L Christian % (Auto) 6.1 Eos % (Auto) 2.5 Baso % (Auto) 0.8 Neut # (Auto) 6600 Lymph # (Auto) 1400 Christian # (Auto) 500 Eos # (Auto) 200 Baso # (Auto) 100 PT 42.1 H INR 3.6 H Sodium 136 L Potassium 4.4 Chloride 104 Carbon Dioxide 27 BUN 21 H Creatinine 0.70 Estimated GFR > 60 BUN/Creatinine Ratio 30.0 H Glucose 112 H Calcium 9.0 Total Bilirubin 0.4 AST 31 ALT 26 Alkaline Phosphatase 103 Total Protein 7.3 Albumin 3.8 Globulin 3.5 Albumin/Globulin Ratio 1.1 SARS-CoV-2 (PCR) 04/11/22 04/12/22 04/12/22 20:05 06:00 06:00 WBC 6.4 RBC 3.58 L Hgb 12.0 Hct 36.0 MCV 100.6 H MCH 33.5 MCHC 33.3 RDW 13.1 Plt Count 170 Neut % (Auto) 69.0 Lymph % (Auto) 17.9 L Christian % (Auto) 11.7 Eos % (Auto) 0.8 L Baso % (Auto) 0.6 Neut # (Auto) 4400 Lymph # (Auto) 1100 Christian # (Auto) 700 Eos # (Auto) 100 Baso # (Auto) 0 PT 22.2 H D INR 1.9 H Sodium Potassium Chloride Carbon Dioxide BUN Creatinine Estimated GFR BUN/Creatinine Ratio Glucose Calcium Total Bilirubin AST ALT Alkaline Phosphatase Total Protein Albumin Globulin Albumin/Globulin Ratio SARS-CoV-2 (PCR) Negative 04/12/22 06:00 WBC RBC Hgb Hct MCV MCH MCHC RDW Plt Count Neut % (Auto) Lymph % (Auto) Christian % (Auto) Eos % (Auto) Baso % (Auto) Neut # (Auto) Lymph # (Auto) Christian # (Auto) Eos # (Auto) Baso # (Auto) PT INR Sodium 135 L Potassium 4.2 Chloride 103 Carbon Dioxide 28 BUN 18 H Creatinine 0.60 Estimated GFR > 60 BUN/Creatinine Ratio 30.0 H Glucose 119 H Calcium 8.6 Total Bilirubin 1.1 AST 31 ALT 23 Alkaline Phosphatase 85 Total Protein 6.8 Albumin 3.4 L Globulin 3.4 Albumin/Globulin Ratio 1.0 SARS-CoV-2 (PCR) [facility] Medical History Arthritis Atrial fibrillation (2006) Bimalleolar fracture of right ankle (2015) Cardiomyopathy Cataract Chicken pox (194) Chronic UTI CTS (carpal tunnel syndrome) 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) Fractures (10/08/07) Hayfever (1959) Heart failure, systolic History of UTI Lichen sclerosus et atrophicus (2011) Measles (1949) Microscopic hematuria Mitral stenosis Mixed incontinence Osteoarthritis (1996) Osteopenia Osteoporosis Postmenopausal atrophic vaginitis Valvular heart disease Surgical History Anesthesia History of carpal tunnel repair (1979) History of carpal tunnel repair (03/23/04) History of cataract removal with insertion of prosthetic lens (01/02/12) History of cataract removal with insertion of prosthetic lens (12/19/11) History of hip replacement (05/08/10) History of hip surgery (05/16/08) History of hip surgery (10/08/07) History of incision and drainage (10/03/18) History of knee replacement (02/11/12) History of knee replacement (07/19/08) History of nasal surgery (10/03/11) History of orthopedic surgery (10/17/09) Status post vaginal hysterectomy (1974) Family History Father Family history of ND (myocardial infarction) Heart disease Congestive heart failure Mother Cancer Myeloma Necrotizing fasciitis Brother MVA (motor vehicle accident) Sister No problems noted. Daughter No problems noted. Son No problems noted. Social History marital status: number of children: 2 household members: spouse occupational status: previously employed Smoking Status: Former smoker Tobacco: How many years used: 10 alcohol intake: current caffeine: Yes Assessment & Plan Assessment & Plan narrative: #Mildly displaced periprosthetic fracture in the proximal right femoral shaft Ortho consulted, surgery proposed today, Pt NPO and ready to go. Patient functional capacity Mets greater than 4, denies any cardiac symptoms at this time. She had a cardiology evaluation and echocardiogram in December 2021, see note below. #rate controlled atrial fibrillation, chronic #warfarin anticoagulation #PFO #elevated INR stable, continue carvedilol I have reviewed her outpatient chart including most recent cardiology note from december 2021 - at this time she was approved to stop warfarin for a week prior to an FNA of thyroid Her symptoms are well controlled with EF 45-50% as of 05/2019 and good functional status with minimal symptoms INR 3.6->1.9 this morning s/p vit K In my opinion she represents acceptable risk for surgical intervention and may proceed at surgeon's discretion #hypertension, controlled hold losartan continue carvedilol for now, resume postop #History of cardiomyopathy Takes as needed Lasix, hasn't really needed much lately hold this for now, monitor PCP: [facility] Code: full MDM: Leonidas [phone] Diet: NPO DVT ppx: SCDs Time Spent With Patient Critical Care time: I spent a total of [] minutes of critical care time on this patient's care today; this time is exclusive of procedural time.
[2022-04-12] MEDS: MAG HYDROX/ALUM/SIMETH 30 ML UDC PO (13:06)
--- NOTE | 2022-04-12 13:58 | CM.IDA ---
Initial DCP Assessment Note Patient is 81 y/o female who presents to after GLF last night. Patient presents with mildly displaced periprosthetic fracture. Patient is awaiting orthopedic surgery. Patient's PCP is Dr. Ren, Patient has [facility]. Patient has hx of Bradycardia, PE, Chronic AFib, CHF, essential hypertension and UTI. BOOM BOSS enters room to meet with patient. Patient presents as A/Ox3, patient reports independence with ADLs at baseline. Patient endorses she drives and does not use any DME. Patient endorses she resides with spouse Leonidas in [place]. BOOM BOSS discusses DCP needs with patient, patient denies need for SNF rehab and preference to d/c to home. BOOM BOSS discusses HH services and provides patient with Medicare choice list, patient reviewing [facility] if HH is recommended for patient. In rounds it was reported by hospitalist that Dr. Pino will take over as attending provider and that patient could possibly transfer to for surgery. Per Progress note from Dr. Pino, patient to have ortho surgery at today. Plan: Patient to have ortho surgery today, f/u with POC tomorrow post surgery pending OT/PT eval. DAKSHA Weber Discharge Planning/Care Management CM Discharge Assessment Start: 04/12/22 13:49 Freq: Status: Active Protocol: Document 04/12/22 13:49 LN (Rec: 04/12/22 13:57 LN [id number]) Discharge Planning Assessment Assigned Bilingual Inside Sales Representative DAKSHA Tang Advance Directives? Yes Advance Directives on File Yes History Provided By Patient,Medical Record Has Patient been admitted in last 30 No days? Prior Living Arrangements House Household Members spouse Type of transporation used prior to Drives own vehicle admit Independent with ADL's Yes Is patient alert and oriented? Yes Patient/Family Preference Home vs. Home with Home Health Comment Home with HH if recommended, patient reviewing HH options. Patient declines SNF rehab with preference to go home upon medical clearance. Additional Comment Patient awaiting surgery, awaiting PT/OT eval. Medicare Choice List Provided Yes SNF/HH Preference [facility], patient reviewing. Whiteboard Updated in Patient Room with Yes name and ext. # of Bilingual Inside Sales Representative Please Provide Date Initial DC 04/12/22 Assessment Was Performed
[2022-04-12] MEDS: OXYCODONE IR 5 MG TABLET PO ×2 (14:37→23:28)
[2022-04-12] MEDS: ACETAMINOPHEN 325 MG TABLET 650 MG PO ×2 (14:37→20:57)
[2022-04-13] VITALS (14 sets, daily range): BP systolic 122–150; BP diastolic 60–96; PULSE 70–106; RESP 10–22; TEMP 36.1–37.1; O2SAT 90–97; BMI 29.2
--- NOTE | 2022-04-13 | DI.RAD.S_ITS ---
PROCEDURE: XR FEMUR RT MIN 2V INDICATIONS: ORIF Right Femur Fracture TECHNIQUE: 16 views of the femur were acquired. COMPARISON: [facility], , XR FEMUR RT MIN 2V, 04/11/2022, 20:25. FINDINGS: Multiple intraoperative fluoroscopic views demonstrate open reduction internal fixation of a periprosthetic fracture of the right femoral shaft with a lateral fixation plate and multiple fixation screws. IMPRESSION: 1. Intraoperative fluoroscopic views demonstrate postsurgical changes consistent with ORIF of a periprosthetic right femoral shaft fracture. Dictated by: Thomas Marrero M.D. on 04/13/2022 at 23:04 Approved by: Thomas Marrero M.D. on 04/13/2022 at 23:07
--- NOTE | 2022-04-13 | DI.RAD.S_ITS ---
PROCEDURE: XR FEMUR RT MIN 2V INDICATIONS: Post-op TECHNIQUE: 2 views of the femur were acquired. COMPARISON: [facility], CR, XR FEMUR RT MIN 2V, 04/11/2022, 20:25. [facility], CT, CT LE RT WO CON, 04/11/2022, 21:45. [facility], CR, XR FEMUR RT MIN 2V, 04/13/2022, 21:02. FINDINGS: Bones: There is been placement of plate and screw fixation from the majority of the femur. Previously placed hip and knee arthroplasty hardware can be seen. Soft tissues: Soft tissue postoperative changes are seen. Atherosclerotic calcification is noted. IMPRESSION: Interval placement of a long femoral plate and screw fixation. No postoperative complication is observed. Dictated by: Federico Pope M.D. on 04/14/2022 at 7:50 Approved by: Federico Pope M.D. on 04/14/2022 at 7:51
[2022-04-13] MEDS: MAG HYDROX/ALUM/SIMETH 30 ML UDC PO (03:29)
[2022-04-13] MEDS: carvediloL 3.125 MG TABLET 6.25 MG PO (09:00)
[2022-04-13] MEDS: OXYCODONE IR 5 MG TABLET PO (10:59)
[2022-04-13] MEDS: ACETAMINOPHEN 325 MG TABLET 650 MG PO (11:00)
--- NOTE | 2022-04-13 16:28 | PC.NURSE ---
Day shift: Pt off unit for hip procedure at approx 1630. Spouse in room and aware of this also.
[2022-04-13] MEDS: LACTATED RINGERS 1,000 ML 42 ML IV ×2 (16:45→19:25)
--- NOTE | 2022-04-13 17:02 | SUR.OPER ---
Lateral on a correia bag, head on pillow, gel axillary roll in place, bottom leg bent with gel pad under knee to foot, upper leg straight and supported with pillows. Upper arm supported by pillows and secured over bottom arm to padded arm board. Safety belt at hip, tape over blanket lower legs.
--- NOTE | 2022-04-13 17:47 | PM.PREOP ---
Pre-operative Note COVID-19 COVID-19 status: Negative Interval Note History & Physical reviewed/Exam performed by Physician: Yes Changes to H&P: No
[2022-04-13] MEDS: CEFAZOLIN 2 GM/100 ML PREMIX 100 ML IV (18:10)
--- NOTE | 2022-04-13 18:14 | PM.OP.1 ---
Operative Date/Time/Diagnoses Date of procedure: 04/13/22 Time of procedure: 18:15 Pre-op diagnosis: Periprosthetic right proximal femur Post-op diagnosis: same Procedure & Clinicians Procedure: Right femur open reduction internal fixation with long plate screws Same procedure as scheduled: Yes Indications: This is a 81-year-old female who fell at and sustained a right proximal femur fracture. She is brought the operating for open reduction internal fixation. She has a history of a right total hip arthroplasty and a subsequent revision right total arthroplasty. Revision arthroplasty was done in [place]. Prosthesis has been in for many years. She was not having significant right hip pain or thigh pain or mechanical symptoms prior to the fall. Surgeon: Lisa Shi Civil Preparedness Coordinator: Toni Byrne Anesthesia Type: General and Spinal Operative Notes Findings: Comminuted right proximal femur fracture, soft bone, no gross loosening of the prosthesis Closure Type: primary Specimen(s): none sent Prosthetic devices, grafts, tissues, transplants, or devices: Shi and nephew EVOS periprosthetic plate with multiple locking screws. Applied: implant(s) Estimated Blood Loss (mL): 250 Blood products transfused: none Procedure in detail: Patient is brought the operating room she underwent induction of a spinal anesthetic. She was carefully transferred to the operating room table and positioned in a lateral decubitus position. A time-out was performed. She was given IV antibiotics. We meticulously and carefully lifted her leg and held it while we were prepping and draping. She was prepped and draped in a standard sterile fashion for extensile exposure to her right femur. Lateral incision was made proximally over the trochanteric region dissection was carried out through skin and subcutaneous tissues. She had a previous posterolateral scar but it was noted that that actually was not in good position for plate application. A more anterior incision was made. Dissection was carried out through skin subcutaneous tissues. The fascia was incised in line with the skin incision. The patient's previous sutures in her gluteal tissue were found and removed. Gelpi retractors and a Charnley retractor were placed. Dissection was carried out down to the trochanter and along the lateral aspect of her femur. Made an incision along the vastus lateralis fascia and then spread the fibers of the vastus lateralis fascia in order to get some exposure to the proximal femur. A long trochanteric plate was selected. For a locking periarticular plate and 4 periprosthetic fracture. The plate was meticulously advanced down along the femur towards the knee. I then carefully positioned it along the greater trochanter. Brought in the fluoro and checked the the length of the plate as well as overall position. Appropriate plate was selected. I did look at a plate the did not extend over the greater trochanter was noted that there really was not much proximal bite with that. Was felt that a trochanteric plate was better as it gave me more proximal fixation options. An incision was made more distally in the region of the knee. That allowed visualization the fascia was incised and the vastus lateralis was carefully stripped down the femur level. The plate was then meticulously positioned distally. It was fixed proximally with a screw and distally. AP and lateral image was brought in. Checked the overall position I attempted to go ahead and shift the plate more distally. After and did remove a couple screws and then put them back in more distally. It then was meticulously fixed to the femur by multiple screw holes screws distally which were confirmed with AP and lateral image I got more than 8 cortical screws distally I used a couple in the mid range of the plate in order to suck the plate down to the femur. Proximally the bone was very soft in the region of the prosthesis. I used some unicortical screws as well as multiple multiple screws into the greater trochanteric region. She had extremely soft bone and it was not felt that I would provide substantial improved fixation with a cerclage wire. I did use this mainly proximal locking screws. Fluoroscopy was used extensively in order to confirm the reduction position of the plate and the stability of the construct ultimately. The wound was meticulously irrigated with normal saline. Marcaine was carefully injected. The wound was closed with interrupted Vicryl running alfa stitch in the hip region and skin darnell. Patient tolerated the procedure well. She was transferred recovery room in satisfactory condition. Complications none. Postoperative plan partial weight-bearing on the right lower extremity basically toe-touch weight-bearing or up to 50 lb. Complications none. Complications: none Post-operative Condition: stable Disposition: Acute Care Plan for aftercare: Mobilize out of bed. Touchdown to Partial weight-bearing extremity. Plan to discharge to home when safe with therapy.
[2022-04-13] MEDS: TRANEXAMIC ACID 1,000 MG in SODIUM CHLORIDE 0.9% 100 ML 200 MG IV ×2 (18:15→21:09)
[2022-04-13] MEDS: ACETAMINOPHEN IV 1,000 MG/100 ML VIAL 400 MG IV (18:20)
--- NOTE | 2022-04-13 18:29 | PC.NURSE ---
Day shift: Pt remains not in room 205 at this time (1830). Pt's Spouse in room at this time awaiting her return from surgery.
[2022-04-13] MEDS: BUPIVACAINE 0.25% (PF) VIAL 30 ML INJ (19:05)
[2022-04-13] MEDS: EPINEPHrine 1 MG/ML 0.15 MG INJ (19:06)
--- NOTE | 2022-04-13 19:54 | PM.PN.1 ---
Subjective Subjective Date Patient Seen: 04/13/22 Time Patient Seen: 10:00 Interval history: CC: hip pain feeling ok this morning pain under control pending surgery today with any luck INR trended down nicely yesterday Exam Vital Signs (past 8 hours): - 04/13/22 16:38 Temperature 98.8 F Pulse Rate 88 Respiratory Rate 16 Blood Pressure 145/76 H Pulse Oximetry 94 Oxygen Delivery Method Room Air Oxygen Flow Rate 0 Oxygen Delivery Method Room Air Oxygen Flow Rate 0 Narrative Exam Narrative: alert elder laying carefully in bed Resp Auscultation: clear to auscultation bilaterally Cardio Rate: regular rate Heart Sounds: S1 normal and S2 normal GI Palpation: soft and No tender Auscultation: normal bowel sounds Neuro General: patient alert and patient awake Psych Mental Status: mental status grossly normal Speech and Movement: speech and movement normal Objective Labs Result Diagrams: 04/12/22 06:00 04/12/22 06:00 [facility] Medical History Arthritis Atrial fibrillation (2006) Bimalleolar fracture of right ankle (2015) Cardiomyopathy Cataract Chicken pox (1948) Chronic UTI CTS (carpal tunnel syndrome) 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) Fractures (10/08/07) Hayfever (1959) Heart failure, systolic History of UTI Lichen sclerosus et atrophicus (2011) Measles (1949) Microscopic hematuria Mitral stenosis Mixed incontinence Osteoarthritis (1996) Osteopenia Osteoporosis Postmenopausal atrophic vaginitis Valvular heart disease Surgical History Anesthesia History of carpal tunnel repair (1979) History of carpal tunnel repair (03/23/04) History of cataract removal with insertion of prosthetic lens (01/02/12) History of cataract removal with insertion of prosthetic lens (12/19/11) History of hip replacement (05/08/10) History of hip surgery (05/16/08) History of hip surgery (10/08/07) History of incision and drainage (10/03/18) History of knee replacement (02/11/12) History of knee replacement (07/19/08) History of nasal surgery (10/03/11) History of orthopedic surgery (10/17/09) Status post vaginal hysterectomy (1974) Family History Father Family history of [place] (myocardial infarction) Heart disease Congestive heart failure Mother Cancer Myeloma Necrotizing fasciitis Brother MVA (motor vehicle accident) Sister No problems noted. Daughter No problems noted. Son No problems noted. Social History marital status: number of children: 2 household members: spouse occupational status: previously employed Smoking Status: Former smoker Tobacco: How many years used: 10 alcohol intake: current caffeine: Yes Assessment & Plan Assessment & Plan narrative: #Mildly displaced periprosthetic fracture in the proximal right femoral shaft Ortho consulted, surgery proposed today, Pt NPO and ready to go. #rate controlled atrial fibrillation, chronic #warfarin anticoagulation #PFO #elevated INR stable, continue carvedilol I have reviewed her outpatient chart including most recent cardiology note from december 2021 - at this time she was approved to stop warfarin for a week prior to an FNA of thyroid Her symptoms are well controlled with EF 45-50% as of 05/2019 and good functional status with minimal symptoms INR 3.6->1.9 yesterday s/p vit K will look to resume warfarin postop #hypertension, controlled hold losartan continue carvedilol for now, resume postop #History of cardiomyopathy Takes as needed Lasix, hasn't really needed much lately hold this for now, monitor PCP: [facility] Code: full MDM: Leonidas [phone] Diet: NPO DVT ppx: SCDs Time Spent With Patient Critical Care time: I spent a total of [] minutes of critical care time on this patient's care today; this time is exclusive of procedural time.
--- NOTE | 2022-04-13 22:06 | SUR.PHASEI ---
Report called to Loretta.
--- NOTE | 2022-04-13 22:28 | SUR.PHASEI ---
Patient transferred to the floor with tele. Report given to Loretta. VS stable. Both right leg dressings were CDI. J-loop placed on IV and IV was saline locked. Patient moving BLE independently.
[2022-04-13] MEDS: LACTATED RINGERS 1,000 ML 125 ML IV (22:46)
[2022-04-13] MEDS: SODIUM CHLORIDE 0.9% FLUSH 10 ML IV (22:48)
[2022-04-13] MEDS: carvediloL 12.5 MG TABLET PO (23:21)
[2022-04-13] MEDS: CHOLECALCIFEROL (VITAMIN D3) 1,000 UNIT TABLET 2000 UNIT PO (23:22)
[2022-04-14] VITALS (9 sets, daily range): BP systolic 110–134; BP diastolic 51–71; PULSE 71–89; RESP 16–20; TEMP 36.5–37.5; O2SAT 92–96
[2022-04-14] MEDS: CEFAZOLIN 2 GM/100 ML PREMIX 100 ML IV ×2 (02:18→10:00)
--- NOTE | 2022-04-14 03:01 | PC.NURSE ---
Pt is AxOx4, came to unit from PACU around 2214. Pt denies pain, VSS. Pt is on 1L O2 NC due to pt was desating 88% when she goes to sleep. Dressing on R hip area up and lower and they C/D/I. Blair is draining clear and yellow urine output. Pt is on Tele and it shows irregular rhythm with no PVC. Pt slept well. Continue monitor.
[2022-04-14 07:36] LABS: Hematocrit 34.2 % (36-46); Hemoglobin 11.5 g/dL (12.0-16.0); Mean Corpuscular HGB Conc 33.6 % (30-36); Mean Corpuscular Hemoglobin 33.6 PG (26-34); Mean Corpuscular Volume 100.1 fL (80-100); Platelet Count 166 X10^3/uL (150-400); Red Blood Cell Count 3.42 X10^6/uL (4.0-5.2); Red Cell Distribution Width 12.5 % (11.6-14.8); White Blood Cell Count 9.4 X10^3/uL (4.5-11.0)
--- NOTE | 2022-04-14 08:25 | PM.PN.1 ---
Subjective Subjective Date Patient Seen: 04/14/22 Interval history: Patient seen and evaluated this morning. Sitting comfortably in bed not complaining of pain. Ate her breakfast. Says she slept well last night dream that she was at home. No other medical problems. She is concerned about her walking and what the discharge plan is. Exam Vital Signs (past 8 hours): - 04/14/22 01:17 04/14/22 01:26 04/14/22 05:08 Temperature 97.7 F 97.9 F Pulse Rate 83 85 86 Respiratory Rate 18 18 Blood Pressure 123/65 116/65 Pulse Oximetry 92 93 96 Oxygen Delivery Method Nasal Cannula Oxygen Flow Rate 1 1 1 Fraction of Inspired Oxygen 24 04/14/22 08:14 Temperature Pulse Rate Respiratory Rate Blood Pressure Pulse Oximetry 96 Oxygen Delivery Method Nasal Cannula Oxygen Flow Rate 1 Fraction of Inspired Oxygen 24 Fraction of Inspired Oxygen 24 SaO2/FiO2 Ratio 400 Oxygen Delivery Method Nasal Cannula Oxygen Flow Rate 1 Narrative Exam Narrative: Gen.: [Alert and oriented x3 no apparent distress.] HEENT: Pupils equal round and reactive or mucosa is moist Cardio: Regular rate and rhythm Respiratory: Normal respiratory effort Abdomen: Soft nontender Extremities: Warm dry perfused Objective Labs Result Diagrams: 04/14/22 07:19 04/12/22 06:00 Labs: Laboratory Results - last 24 hr 04/14/22 07:19 WBC 9.4 RBC 3.42 L Hgb 11.5 L Hct 34.2 L MCV 100.1 H MCH 33.6 MCHC 33.6 RDW 12.5 Plt Count 166 PFSH Medical History Arthritis Atrial fibrillation (2006) Bimalleolar fracture of right ankle (2015) Cardiomyopathy Cataract Chicken pox (1948) Chronic UTI CTS (carpal tunnel syndrome) 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) Fractures (10/08/07) Hayfever (1959) Heart failure, systolic History of UTI Lichen sclerosus et atrophicus (2011) Measles (1949) Microscopic hematuria Mitral stenosis Mixed incontinence Osteoarthritis (1996) Osteopenia Osteoporosis Postmenopausal atrophic vaginitis Valvular heart disease Surgical History Anesthesia History of carpal tunnel repair (1979) History of carpal tunnel repair (03/23/04) History of cataract removal with insertion of prosthetic lens (01/02/12) History of cataract removal with insertion of prosthetic lens (12/19/11) History of hip replacement (05/08/10) History of hip surgery (05/16/08) History of hip surgery (10/08/07) History of incision and drainage (10/03/18) History of knee replacement (02/11/12) History of knee replacement (07/19/08) History of nasal surgery (10/03/11) History of orthopedic surgery (10/17/09) Status post vaginal hysterectomy (1974) Family History Father Family history of [place] (myocardial infarction) Heart disease Congestive heart failure Mother Cancer Myeloma Necrotizing fasciitis Brother MVA (motor vehicle accident) Sister No problems noted. Daughter No problems noted. Son No problems noted. Social History marital status: number of children: 2 household members: spouse occupational status: previously employed Smoking Status: Former smoker Tobacco: How many years used: 10 alcohol intake: current caffeine: Yes Assessment & Plan Assessment and plan (1) Periprosthetic fracture around internal prosthetic joint: Status: Acute Plan Postoperative day periprosthetic fracture of right femoral shaft. Poor orthopedic surgery Atrial fibrillation with chronic anticoagulation. Patient has a PFO. Monitor INR. Ejection fraction of heart is 45-50%. Resume warfarin postoperatively as per Orthopedic surgery. Hypertension. Continue with losartan and carvedilol. Cardiomyopathy. Appears euvolemic at this time. Hypertension continue with blood pressure management. Discharge as per Orthopedic surgery. Time Spent With Patient Critical Care time: I spent a total of [] minutes of critical care time on this patient's care today; this time is exclusive of procedural time.
--- NOTE | 2022-04-14 08:55 | PM.DS.1 ---
History of Present Illness History of Present Illness Date Patient Seen: 04/14/22 Time Patient Seen: 08:55 Chief complaint: Right leg pain Narrative: Patient states her pain is mild. Denies fever or chills. No nausea or vomiting. Patient's is home to assist her. She does have a ramp into her house. Discharge Providers Provider Date of admission: 04/11/22 23:29 Discharge Date: 04/14/22 Primary care physician: Rochelle Ren MD Consults: 04/12/22 11:30 Consult to Orthopedic Surgery Routine Comment: Consulting Provider: Lisa Shi Reason for consultation: hip fx Has provider been notified: Yes 04/13/22 22:26 Consult to Discharge Planning Routine Comment: Consult to Physical Therapy Evaluate & Treat Comment: Physician Instructions: Evaluate and Treat Discharge provider: Toni Byrne PA-C Summary Hospital Course Discharge Diagnosis: Periprosthetic right proximal femur Postop anemia due to blood loss during surgery Hospital Course: Right femur open reduction internal fixation with long plate screws Same procedure as scheduled: Yes Indications: This is a 81-year-old female who fell at and sustained a right proximal femur fracture.? She is brought the operating for open reduction internal fixation.? She has a history of a right total hip arthroplasty and a subsequent revision right total arthroplasty.? Revision arthroplasty was done in [place].? Prosthesis has been in for many years.? She was not having significant right hip pain or thigh pain or mechanical symptoms prior to the fall. Surgeon: Lisa Shi Outside Machinist Apprentice: Toni Byrne Anesthesia Type: General and Spinal Operative Notes Findings: Comminuted right proximal femur fracture, soft bone, no gross loosening of the prosthesis Closure Type: primary Specimen(s): none sent Prosthetic devices, grafts, tissues, transplants, or devices: Shi and nephew EVOS periprosthetic plate with multiple locking screws. Applied: implant(s) Estimated Blood Loss (mL): 250 Blood products transfused: none Patient admitted to the hospital for a periprosthetic right proximal femur fracture. Patient consented to right femur open reduction internal fixation with long plate and screws. Patient underwent surgery yesterday evening April 13, 2022. Patient back in her room recovering well as in stable condition. Patient did have some blood loss during surgery and has some postop anemia secondary to blood loss during surgery. Patient is currently stable. She will work with physical therapy. Partial weight-bearing right lower extremity, 50% or less. Follow up in 2 weeks for wound check and repeat x-rays. Multimodal pain management. Patient may be discharged home today after physical therapy if stable/ safe for home environment. Exam Vital Signs (past 8 hours): - 04/14/22 01:17 04/14/22 01:26 04/14/22 05:08 Temperature 97.7 F 97.9 F Pulse Rate 83 85 86 Respiratory Rate 18 18 Blood Pressure 123/65 116/65 Pulse Oximetry 92 93 96 Oxygen Delivery Method Nasal Cannula Oxygen Flow Rate 1 1 1 Fraction of Inspired Oxygen 24 04/14/22 08:14 Temperature Pulse Rate Respiratory Rate Blood Pressure Pulse Oximetry 96 Oxygen Delivery Method Nasal Cannula Oxygen Flow Rate 1 Fraction of Inspired Oxygen 24 Fraction of Inspired Oxygen 24 SaO2/FiO2 Ratio 400 Oxygen Delivery Method Nasal Cannula Oxygen Flow Rate 1 Narrative Exam Narrative: Pleasant 81-year-old female resting comfortably in bed in no apparent distress. is at bedside. Izzy dressing is on and functioning. Scant drainage noted on the lower dressing. Motor functions intact right lower extremity. Sensation grossly intact to light touch right lower extremities. Right leg is warm and dry. 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) Fractures (10/08/07) Hayfever (1959) Heart failure, systolic History of UTI Lichen sclerosus et atrophicus (2011) Measles (1949) Microscopic hematuria Mitral stenosis Mixed incontinence Osteoarthritis (1996) Osteopenia Osteoporosis Postmenopausal atrophic vaginitis Valvular heart disease Surgical History Anesthesia History of carpal tunnel repair (1979) History of carpal tunnel repair (03/23/04) History of cataract removal with insertion of prosthetic lens (01/02/12) History of cataract removal with insertion of prosthetic lens (12/19/11) History of hip replacement (05/08/10) History of hip surgery (05/16/08) History of hip surgery (10/08/07) History of incision and drainage (10/03/18) History of knee replacement (02/11/12) History of knee replacement (07/19/08) History of nasal surgery (10/03/11) History of orthopedic surgery (10/17/09) Status post vaginal hysterectomy (1974) Family History Father Family history of [place] (myocardial infarction) Heart disease Congestive heart failure Mother Cancer Myeloma Necrotizing fasciitis Brother MVA (motor vehicle accident) Sister No problems noted. Daughter No problems noted. Son No problems noted. Social History marital status: number of children: 2 household members: spouse occupational status: previously employed Smoking Status: Former smoker Tobacco: How many years used: 10 alcohol intake: current caffeine: Yes Discharge Assessment & Plan Assessment and Plan Assessment: Patient progressing as expected status post right femur open reduction internal fixation with long plate and screws Postop anemia secondary to acute blood loss during surgery Plan of Treatment: Mobilize with physical therapy, 50% weight-bearing or LEs right lower extremity. We will need to use a walker. Multimodal pain management Discharge home today after physical therapy if safe for home environment. Discharge Plan Discharge Plan Patient Disposition: Home Provider Discharge Comment: Discharge home after PT if safe for home environment Discharge orders & Medications Prescriptions: New polyethylene glycol 3350 17 gram Powder In Packet 17 gm PO DAILY Qty: 20 0RF oxycodone 5 mg Tablet 5 mg PO Q3HR PRN (Reason: Pain, Mild (1-3)) Qty: 60 0RF Continued multivitamin [Multiple Vitamins] 1 EACH tablet 1 tab PO DAILY Qty: 0 carvedilol [Coreg] 12.5 mg tablet 12.5 mg PO BID Qty: 180 3RF losartan 25 mg tablet 25 mg PO DAILY Qty: 90 3RF estradiol 0.01 % (0.1 mg/gram) cream 1 g vaginal 2XW Qty: 42.5 11RF calcium citrate 250 mg calcium tablet 250 mg PO BID cholecalciferol (vitamin D3) 2,000 unit capsule 2,000 unit PO BID fluticasone propionate 50 mcg/actuation spray,suspension 2 spray NASAL DAILY PRN (Reason: Nasal Congestion) furosemide [Lasix] 20 mg tablet 20 mg PO PRN PRN (Reason: Edema, fluid retention) warfarin 5 mg tablet 7.5 mg PO DAILY omega-3 fatty acids Capsule See Rx Instructions .ROUTE .COMPLEX Rx Instructions: Take as directed cranberry extract See Rx Instructions .ROUTE .COMPLEX Rx Instructions: Take as directed ascorbic acid (vitamin C) See Rx Instructions .ROUTE .COMPLEX Rx Instructions: Take as directed Follow up/Referrals: Rochelle Ren MD [Primary Care Provider] - Lisa Shi MD [Physician] - ([facility] in 2 weeks for wound check, possible staple removal, full femur x-rays) Discharge Health Status Multidrug resistant organism: No MDRO Diet/Activity/Treatments Diet: Diet as Tolerated Activity: 50% or less weight-bearing right lower extremity Cold/Heat Therapy: Ice to right leg as needed Skin/Wound/Dressing Care Report to your healthcare provider any signs of infection, such as:: chills, fever, night sweats, increased pain, unusual drainage and unusual redness Dressing: Keep dressing clean and dry, izzy dressing instructions reviewed Visit Report/Discharge Packet Instructions: DI for Open Reduction Internal Fixation Surgery, DI for Prescription Opioid Use Stand Alone Forms: Surgery Discharge Discharge Data Primary Care Provider: Rochelle Ren
[2022-04-14] MEDS: OXYCODONE IR 5 MG TABLET PO ×4 (09:12→21:38)
[2022-04-14] MEDS: CHOLECALCIFEROL (VITAMIN D3) 1,000 UNIT TABLET 2000 UNIT PO ×2 (09:55→20:36)
[2022-04-14] MEDS: FISH OIL 1,000 MG CAPSULE 1000 MG PO (09:55)
--- NOTE | 2022-04-14 09:56 | PT.IIE ---
Current Diagnoses Periprosthetic fracture around internal prosthetic right hip joint, initial encounter (04/11/22) Unspecified fracture of right femur, initial encounter for closed fracture (04/11/22) Surgery Performed Operation Date: 04/13/22 14:15 Actual Procedures p ORIF Femur Fracture(Right) - Lisa Shi MD Surgical History (Last Reviewed 04/14/22 @ 09:00 by Toni Byrne PA-C) Anesthesia History of carpal tunnel repair (1979) History of carpal tunnel repair (03/23/04) History of cataract removal with insertion of prosthetic lens (01/02/12) History of cataract removal with insertion of prosthetic lens (12/19/11) History of hip replacement (05/08/10) History of hip surgery (05/16/08) History of hip surgery (10/08/07) History of incision and drainage (10/03/18) History of knee replacement (02/11/12) History of knee replacement (07/19/08) History of nasal surgery (10/03/11) History of orthopedic surgery (10/17/09) Status post vaginal hysterectomy (1974) Medical History (Last Reviewed 04/14/22 @ 09:00 by Toni Byrne PA-C) Arthritis Atrial fibrillation (2006) Bimalleolar fracture of right ankle (2015) Cardiomyopathy Cataract Chicken pox (1949) Chronic UTI CTS (carpal tunnel syndrome) 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) Fractures (10/08/07) Hayfever (1959) Heart failure, systolic History of UTI Lichen sclerosus et atrophicus (2011) Measles (1949) Microscopic hematuria Mitral stenosis Mixed incontinence Osteoarthritis (1996) Osteopenia Osteoporosis Postmenopausal atrophic vaginitis Valvular heart disease Physical Therapy Inpatient Evaluation/Re-Eval M1 PT/OT-IP Prior Functional Status Start: 04/14/22 13:19 Freq: NEEDED Status: Active Protocol: Document 04/14/22 09:56 AB (Rec: 04/14/22 13:38 AB [id number]) Medical Review Prior Functional Status Medical History Reviewed Yes Communication able to make needs known Mobility and Gait pt stated that she is independent with all mobilities and ambulation without AD Social History Household Members spouse Living Arrangements House Number of Floors (Floors) Two Floors Number of Stairs To Enter/Railing? pt stays on main level of the house has a ramp to enter Home Environment High Toilet,Walk in Shower, Ramp Home Equipment Front Wheel Walker,Four Wheel Walker,Bedside Commode,Grab Bars Near Toilet,Grab Bars In Shower Additional Social History Comment spouse limited to the assistance he can provide (has torn hamstrings and uses a SPC) M2 PT-IP Current Condition Start: 04/14/22 13:19 Freq: NEEDED Status: Active Protocol: Document 04/14/22 09:56 AB (Rec: 04/14/22 13:38 AB [id number]) Physical Therapy Current Condition Current Condition Evaluation Date 04/14/22 Treatment Diagnosis L femoral periprosthetic fx s/ p ORIF; difficulty in walking Onset Date 04/11/22 M3 PT-IP Subjective Start: 04/14/22 13:19 Freq: NEEDED Status: Active Protocol: Document 04/14/22 09:56 AB (Rec: 04/14/22 13:38 AB [id number]) Subjective Physical Therapy Visit Type Type Initial Evaluation Visit Start Time 09:56 Visit Stop Time 10:41 Total Visit Minutes 45 Number of P D DRIVER Visits 0 Physical Therapy Visit Comments Patient Comments agreeable to do PT Therapy Pain Assessment Pain When Pain Assessed At Rest Pain Present Pain Present Pain Reported Location right hip Intensity 2 Scale Used increases 4/10 with mobility Description Tightness,With Movement Pain Behaviors Crying,Facial Grimacing, Guarding,Holding Area,Wincing Pain Management Techniques Apply Cold,Distraction, Elevation,Modification of Treatment,Re-positioning, Timing of Activity with Medications M4 PT-IP Mobility and Gait Start: 04/14/22 13:19 Freq: NEEDED Status: Active Protocol: Document 04/14/22 09:56 AB (Rec: 04/14/22 13:38 AB [id number]) PT-Bed Mobility Assessment Supine to Sit Supine to Sit Maximum Assistance,1 Person Assistance,2 Person Assistance ,Bedrails Scooting Scooting to Edge of Bed Maximum Assistance PT-Transfer Assessment Sit to and From Stand Sit to and from Stand Maximum Assistance,2 Person Assistance,Use of Upper Extremities Equipment Transfer Assistive Device Gait Belt,Front Wheeled Walker Orthotic/Prosthetic Devices or Brace: No Transfers Transfer Destination Chair Transfer Technique Stand Step Pivot Transfer Ability Level of Assist Maximum Assistance,1 Person Assistance,2 Person Assistance ,Use of Upper Extremities Comments Mobility Comments spouse in room with pt. pt completed supine to sit max A x 1-2 and max cues. increase RLE guarding and c/o increase pain. able to sit on EOB CGA. difficulty and increase pain during mobility . educated pt on weight bearing restriction and techniques on how to maintain restriction with with to stand and during transfers/ ambulation. completed sit to stand max A x 2 and max cues and step transfer using fWW max A x 1-2 and max cues. positioned pt on the chair. call light and table placed within reach. unable to ambulate at this time. Pt told her spouse that she does not think she will be able to go home. pt and spouse wants to talk to a therapeutic case manager. Informed therapeutic case manager and will talk to pt and spouse. informed pt and spouse regarding equipement needs: w/ c PT-Balance Assessment Sitting Balance and Reactions Static Sitting Balance Ability Good Dynamic Sitting Balance Ability Fair Standing Balance and Reactions Static Standing Balance Ability Poor Dynamic Standing Balance Ability Poor Device Used FWW M5 PT-IP Objective Assessments Start: 04/14/22 13:19 Freq: NEEDED Status: Active Protocol: Document 04/14/22 09:56 AB (Rec: 04/14/22 13:38 AB [id number]) Orientation Orientation/Cognition Level of Alertness Alert Orientation Name,Place,Situation Language Function Ability No Deficits Noted Safety Awareness Decreased Safety Awareness Memory Description No Deficits Noted Gross Range of Motion Lower Extremity ROM Assessment Right Impaired Impairments R knee flexion: ~ 50 deg Strength Lower Extremity Strength Assessment Right Impaired Hip 3-/5 Knee 3+/5 Sensation Assessment Sensation Gross Sensation WNL Muscle Tone Muscle Tone WNL Yes M6 PT-IP Treatment Start: 04/14/22 13:19 Freq: NEEDED Status: Active Protocol: Document 04/14/22 09:56 AB (Rec: 04/14/22 13:38 AB [id number]) Physical Therapy Treatment Education Education Provided Precautions,Weight Bearing Status,Post-Op Packet,Safety M7 PT-IP Assessment and Plan Start: 04/14/22 13:19 Freq: NEEDED Status: Active Protocol: Document 04/14/22 09:56 AB (Rec: 04/14/22 13:38 AB [id number]) PT Summary Assessment and Plan Potential Rehabilitation Potential Fair Status of Condition at Evaluation Evolving Summary Impairments Pain,ROM,Strength,Balance, Coordination,Sensation,Tone, Cognition,Bed Mobility, Transfers,Gait,Activity Tolerance Assessment Summary pt requiring max A x 2 for transfers and unable to ambulate at this time. pt will require SNF rehab to improve strength and mobility. Goals Bed Mobility Goal Contact Guard Assistance Transfer Goal Contact Guard Assistance,Front Wheeled Walker Gait Goal Contact Guard Assistance,Front Wheel Walker Gait Distance 25 Days to Meet Goals 10 Frequency of Treatment Frequency Of Treatment Twice a Day Treatment Plan Physical Therapy Treatment Plan Bed Mobility Training,Transfer Training,Gait Training, Therapeutic Exercise,Balance Retraining,Post Op Education, Discharge Planning,Hot or Cold Pack,Neuromuscular Re-ed, Coordination Retraining,Manual Therapy Weight Bearing Status Weight Bearing Status Touch Down Weight Bearing Allowed Weight Bearing Amount (enter % Per Dr. Shi's Note: TTWB or or #) (%) PWB up to 50#; talked with DELFINO Byrne and stated that Dr. Shi told him PWB up to 100#. Recommendations To Nursing Amount of Assist Needed 2 Person Assist Discharge Recommendations PT Discharge Recommendations SNF Rehab Transportation Needs at Discharge Wheelchair/Cabulance
[2022-04-14] MEDS: SODIUM CHLORIDE 0.9% FLUSH 10 ML IV ×2 (09:57→20:43)
[2022-04-14] MEDS: carvediloL 12.5 MG TABLET PO (09:57)
[2022-04-14] MEDS: carvediloL 3.125 MG TABLET 6.25 MG PO (10:00)
--- NOTE | 2022-04-14 13:42 | CM.DPNOTE ---
DCP Note According to PT patient may require SNF upon discharge. Spoke with patient and spouse; patient was hopeful to return home but understands that at this time she is requiring too much assist for return home w/spouse Patient reviews MCR choice list and asks for 1.[facility] 2. [facility] (No preference) PASRR completed and referral discussed with Roxy at [facility], awaiting CB. Patient has [facility] so auth would need to be obtained before admission to SNF JW
--- NOTE | 2022-04-14 14:40 | PT.IPTN ---
Current Diagnoses Periprosthetic fracture around internal prosthetic right hip joint, initial encounter (04/11/22) Unspecified fracture of right femur, initial encounter for closed fracture (04/11/22) Surgery Performed Operation Date: 04/13/22 14:15 Actual Procedures p ORIF Femur Fracture(Right) - Lisa Shi MD Physical Therapy Treatment Note M2 PT-IP Current Condition Start: 04/14/22 13:19 Freq: NEEDED Status: Active Protocol: Document 04/14/22 09:56 AB (Rec: 04/14/22 13:38 AB [id number]) Physical Therapy Current Condition Current Condition Evaluation Date 04/14/22 Treatment Diagnosis L femoral periprosthetic fx s/ p ORIF; difficulty in walking Onset Date 04/11/22 M3 PT-IP Subjective Start: 04/14/22 13:19 Freq: NEEDED Status: Active Protocol: Document 04/14/22 14:40 AB (Rec: 04/14/22 16:32 AB [id number]) Subjective Physical Therapy Visit Type Type Treatment Note Visit Start Time 14:40 Visit Stop Time 15:10 Total Visit Minutes 30 Number of PRINTED CIRCUIT BOARDS INSPECTOR Visits 0 Physical Therapy Visit Comments Patient Comments agreeable to do PT Therapy Pain Assessment Pain When Pain Assessed At Rest Pain Present Pain Present Pain Reported Location right hip Intensity 2 Scale Used Numeric (0 - 10) Pain Behaviors Facial Grimacing,Guarding Pain Management Techniques Apply Cold,Distraction, Modification of Treatment,Re- positioning,Timing of Activity with Medications M4 PT-IP Mobility and Gait Start: 04/14/22 13:19 Freq: NEEDED Status: Active Protocol: Document 04/14/22 14:40 AB (Rec: 04/14/22 16:32 AB [id number]) PT-Bed Mobility Assessment Supine to Sit Supine to Sit Moderate Assistance,1 Person Assistance Sit to Supine Sit to Supine Moderate Assistance,Maximum Assistance,1 Person Assistance PT-Transfer Assessment Sit to and From Stand Sit to and from Stand Moderate Assistance,Maximum Assistance,1 Person Assistance ,Use of Upper Extremities Equipment Transfer Assistive Device Gait Belt,Front Wheeled Walker Orthotic/Prosthetic Devices or Brace: No Comments Mobility Comments completed heel slides prior to mobility. pt completed supine to sit mod to max A and max cues for techniques. able to sit on EOB SBA. completed sit to stand mod to max A and cues with unsteady transition and initial stand balance. pt also tend to rotate trunk towards L side during sit to stand. required max A for controlled descent to EOB. educated pt on sit< >stand techniques. Pt sit<> stand x 4 reps mod to max A and max cues. able to take steps ~ 5 ft using FWW mod A and cues. pt c/o fatigue afterwards and wanting to go back to bed. completed sit to supine mod to max A for RLE elevation and cues. positioned pt in bed. call light and table placed within reach. educated pt on level of assistance and SNF recommendation. Gait Assessment Gait Gait Assistance Required: Moderate Assistance,1 Person Assist Distance (Feet) 5 Able to Maintain Weight Bearing Status Yes During Gait Assistive Devices Assistive Device Gait Belt,Front Wheeled Walker Orthotic/Prosthetic Devices or Brace: No Gait Deviations General Gait Pattern Decreased Stride Length, Decreased Feet Clearance Factors Limiting Gait Function Factors Limiting Gait Function Decreased Activity Tolerance, Decreased Strength,Limited Range of Motion,Pain,Poor Balance M5 PT-IP Objective Assessments Start: 04/14/22 13:19 Freq: NEEDED Status: Active Protocol: Document 04/14/22 09:56 AB (Rec: 04/14/22 13:38 AB [id number]) Orientation Orientation/Cognition Level of Alertness Alert Orientation Name,Place,Situation Language Function Ability No Deficits Noted Safety Awareness Decreased Safety Awareness Memory Description No Deficits Noted Gross Range of Motion Lower Extremity ROM Assessment Right Impaired Impairments R knee flexion: ~ 50 deg Strength Lower Extremity Strength Assessment Right Impaired Hip 3-/5 Knee 3+/5 Sensation Assessment Sensation Gross Sensation WNL Muscle Tone Muscle Tone WNL Yes M6 PT-IP Treatment Start: 04/14/22 13:19 Freq: NEEDED Status: Active Protocol: Document 04/14/22 14:40 AB (Rec: 04/14/22 16:32 AB [id number]) Physical Therapy Treatment Education Education Provided Weight Bearing Status,Safety M7 PT-IP Assessment and Plan Start: 04/14/22 13:19 Freq: NEEDED Status: Active Protocol: Document 04/14/22 14:40 AB (Rec: 04/14/22 16:32 AB [id number]) PT Summary Assessment and Plan Potential Rehabilitation Potential Fair Summary Impairments Pain,ROM,Strength,Balance, Coordination,Sensation,Tone, Cognition,Bed Mobility, Transfers,Gait,Activity Tolerance Progress Towards Goals Slow Progress due to Pain,Slow Progress due to Activity Tolerance Assessment Summary Pt progressing slowly with mobility requiring mod to max A but only able to ambulate 5 ft using FWW mod A and has decrease activity tolerance affecting mobility. pt will require SNF rehab to improve strength and mobility. Goals Bed Mobility Goal Contact Guard Assistance Transfer Goal Contact Guard Assistance,Front Wheeled Walker Gait Goal Contact Guard Assistance,Front Wheel Walker Gait Distance 25 Days to Meet Goals 10 Frequency of Treatment Frequency Of Treatment Twice a Day Treatment Plan Physical Therapy Treatment Plan Bed Mobility Training,Transfer Training,Gait Training, Therapeutic Exercise,Balance Retraining,Post Op Education, Discharge Planning,Hot or Cold Pack,Neuromuscular Re-ed, Coordination Retraining,Manual Therapy Weight Bearing Status Weight Bearing Status Touch Down Weight Bearing Allowed Weight Bearing Amount (enter % Per Dr. Shi's Note: TTWB or or #) (%) PWB up to 50#; talked with DELFINO Byrne and stated that Dr. Shi told him PWB up to 100#. Recommendations To Nursing Amount of Assist Needed 2 Person Assist Discharge Recommendations PT Discharge Recommendations SNF Rehab Transportation Needs at Discharge Wheelchair/Cabulance
[2022-04-14] MEDS: WARFARIN 5 MG TABLET 7.5 MG PO (17:14)
[2022-04-14] MEDS: MAGNESIUM HYDROXIDE 30 ML UDC PO (20:36)
[2022-04-15 00:26] VITALS: BP 119/47; PULSE 90; RESP 18; TEMP 37.5; O2SAT 94
[2022-04-15 02:05] VITALS: TEMP 37.3
--- NOTE | 2022-04-15 02:49 | PC.NURSE ---
Pt is AxOx4, needs 1-2 person assistance and cooperative. Dressings on R hip/thigh are C/D/I. Pt requested ice pack on that area. VSS, pt c/o pain and recieved PRN Oxy PO 5mg with good effect around 2129. Pt had S BM overnight and johnson is draining clear and yellow urine output. No other changes.
[2022-04-15 04:30] VITALS: BP 103/49; PULSE 85; RESP 18; TEMP 37.7; O2SAT 95
[2022-04-15] MEDS: CHOLECALCIFEROL (VITAMIN D3) 1,000 UNIT TABLET 2000 UNIT PO (07:57)
[2022-04-15] MEDS: OXYCODONE IR 5 MG TABLET PO ×2 (07:57→10:57)
[2022-04-15] MEDS: FISH OIL 1,000 MG CAPSULE 1000 MG PO (07:57)
[2022-04-15] MEDS: polyethylene glycoL 3350 17 GM POWD.PACK PO (07:58)
[2022-04-15 08:26] VITALS: BP 116/56; PULSE 80; RESP 16; TEMP 37.9; O2SAT 95
--- NOTE | 2022-04-15 08:36 | PM.PN.1 ---
Subjective Subjective Date Patient Seen: 04/15/22 Time Patient Seen: 08:36 Interval history: Patient seen and evaluated this morning. Was anticipating to go home yesterday. Was really not able to ambulate well enough to be able to go home on her own. Plan is for residential facility. Patient has had a low-grade temperature yesterday evening and this morning. She is not have any cough or respiratory distress wound incision looks good. She does have a Blair catheter in which needs to be removed. Check white blood cell count and urinalysis today Exam Vital Signs (past 8 hours): - 04/15/22 02:05 04/15/22 04:30 04/15/22 08:26 Temperature 99.2 F 99.9 F H 100.3 F H Pulse Rate 85 80 Respiratory Rate 18 16 Blood Pressure 103/49 L 116/56 L Pulse Oximetry 95 95 Oxygen Flow Rate 0 0 Fraction of Inspired Oxygen 24 SaO2/FiO2 Ratio 400 Oxygen Delivery Method Room Air Oxygen Flow Rate 0 Narrative Exam Narrative: Gen.: Alert good historian HEENT: Pupils equal round and reactive or mucosa is moist neck is supple Cardio: [S1-S2 regular rate and rhythm no murmurs appreciated.] Respiratory: Lungs are clear no wheezes or crackles Abdomen: Soft nontender Extremities: Some edema to her right leg. 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) Fractures (10/08/07) Hayfever (1959) Heart failure, systolic History of UTI Lichen sclerosus et atrophicus (2011) Measles (1949) Microscopic hematuria Mitral stenosis Mixed incontinence Osteoarthritis (1996) Osteopenia Osteoporosis Postmenopausal atrophic vaginitis Valvular heart disease Surgical History Anesthesia History of carpal tunnel repair (1979) History of carpal tunnel repair (03/23/04) History of cataract removal with insertion of prosthetic lens (01/02/12) History of cataract removal with insertion of prosthetic lens (12/19/11) History of hip replacement (05/08/10) History of hip surgery (05/16/08) History of hip surgery (10/08/07) History of incision and drainage (10/03/18) History of knee replacement (02/11/12) History of knee replacement (07/19/08) History of nasal surgery (10/03/11) History of orthopedic surgery (10/17/09) Status post vaginal hysterectomy (1974) Family History Father Family history of ID (myocardial infarction) Heart disease Congestive heart failure Mother Cancer Myeloma Necrotizing fasciitis Brother MVA (motor vehicle accident) Sister No problems noted. Daughter No problems noted. Son No problems noted. Social History marital status: number of children: 2 household members: spouse occupational status: previously employed Smoking Status: Former smoker Tobacco: How many years used: 10 alcohol intake: current caffeine: Yes Assessment & Plan Assessment and plan (1) Periprosthetic fracture around internal prosthetic joint: Status: Acute Plan Periprosthetic fracture of right femoral shaft patient is doing well after surgery. Having some difficulty with ambulation was supposed to go home yesterday. She felt like going home was not safe. Will be going to residential facility for rehabilitation. Postoperative fever. Wound looks good. No signs of respiratory compromise lungs are clear. Patient has a Blair catheter and we will remove this today and check a urinalysis and white blood cell count. Could also just be due to postoperative atelectasis which is most likely. Atrial fibrillation with chronic anticoagulation continue with postoperative warfarin check PT INR. Hypertension continue with current blood pressure medication Disposition plan awaiting discharge to SNF. Check urinalysis and white blood cell count. Time Spent With Patient Critical Care time: I spent a total of [] minutes of critical care time on this patient's care today; this time is exclusive of procedural time.
--- NOTE | 2022-04-15 10:39 | P.PN_ITS ---
Subjective Subjective Date Patient Seen: 04/15/22 Time Patient Seen: 10:45 Interval history: She notes that she had substantial pain when she attempted to get out of bed. She is having difficulty mobilizing. Her has significant disability. She does not have pain when she is at rest. Exam Vital Signs (past 8 hours): - 04/15/22 04:30 04/15/22 08:26 Temperature 99.9 F H 100.3 F H Pulse Rate 85 80 Respiratory Rate 18 16 Blood Pressure 103/49 L 116/56 L Pulse Oximetry 95 95 Oxygen Flow Rate 0 0 Fraction of Inspired Oxygen 24 SaO2/FiO2 Ratio 400 Oxygen Delivery Method Room Air Oxygen Flow Rate 0 Narrative Exam Narrative: Resting comfortably in bed, lungs clear, cor regular rate and rhythm, abdomen benign, right lower extremity calf is soft distally, able to gently rotate her leg without difficulty. 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) Fractures (10/08/07) Hayfever (1959) Heart failure, systolic History of UTI Lichen sclerosus et atrophicus (2011) Measles (1949) Microscopic hematuria Mitral stenosis Mixed incontinence Osteoarthritis (1996) Osteopenia Osteoporosis Postmenopausal atrophic vaginitis Valvular heart disease Surgical History Anesthesia History of carpal tunnel repair (1979) History of carpal tunnel repair (03/23/04) History of cataract removal with insertion of prosthetic lens (01/02/12) History of cataract removal with insertion of prosthetic lens (12/19/11) History of hip replacement (05/08/10) History of hip surgery (05/16/08) History of hip surgery (10/08/07) History of incision and drainage (10/03/18) History of knee replacement (02/11/12) History of knee replacement (07/19/08) History of nasal surgery (10/03/11) History of orthopedic surgery (10/17/09) Status post vaginal hysterectomy (1974) Family History Father Family history of [place] (myocardial infarction) Heart disease Congestive heart failure Mother Cancer Myeloma Necrotizing fasciitis Brother MVA (motor vehicle accident) Sister No problems noted. Daughter No problems noted. Son No problems noted. Social History marital status: number of children: 2 household members: spouse occupational status: previously employed Smoking Status: Former smoker Tobacco: How many years used: 10 alcohol intake: current caffeine: Yes Assessment & Plan Post-op Assessment and plan (1) Periprosthetic fracture around internal prosthetic joint: (2) Closed right femoral fracture: Postoperative Procedures: Procedures Operation Date: 04/13/22 14:15 Actual Procedure Side Surgeon p ORIF Femur Fracture Right Lisa Shi MD Postoperative day: 2 Postoperative status: doing well and marginal pain control Postoperative status narrative: She is continuing to have ongoing problems with pain. She has a severely comminuted fracture. It has been stabilized with a plate. She clearly needs additional rehab. I have recommended that we discharge her to rehab instead of attempting to send her home.
--- NOTE | 2022-04-15 10:50 | PT.IPTN ---
Current Diagnoses Periprosthetic fracture around internal prosthetic right hip joint, initial encounter (04/11/22) Periprosthetic fracture around unspecified internal prosthetic joint, initial encounter (04/11/22) Unspecified fracture of right femur, initial encounter for closed fracture (04/11/22) Surgery Performed Operation Date: 04/13/22 14:15 Actual Procedures p ORIF Femur Fracture(Right) - Lisa Shi MD Physical Therapy Treatment Note M2 PT-IP Current Condition Start: 04/14/22 13:19 Freq: NEEDED Status: Active Protocol: Document 04/14/22 09:56 AB (Rec: 04/14/22 13:38 AB [id number]) Physical Therapy Current Condition Current Condition Evaluation Date 04/14/22 Treatment Diagnosis L femoral periprosthetic fx s/ p ORIF; difficulty in walking Onset Date 04/11/22 M3 PT-IP Subjective Start: 04/14/22 13:19 Freq: NEEDED Status: Active Protocol: Document 04/15/22 10:50 AW (Rec: 04/15/22 11:24 AW [id number]) Subjective Physical Therapy Visit Type Type Treatment Note Visit Start Time 10:30 Visit Stop Time 10:50 Total Visit Minutes 20 Number of WOOD 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 DRIVER OPERATOR Visits 0 Physical Therapy Visit Comments Patient Comments agreeable to do PT Therapy Pain Assessment Pain When Pain Assessed During Mobility Pain Present Pain Present Pain Reported Location right hip Intensity 7 Scale Used Numeric (0 - 10) Pain Management Techniques Apply Cold,Distraction, Modification of Treatment, Timing of Activity with Medications M4 PT-IP Mobility and Gait Start: 04/14/22 13:19 Freq: NEEDED Status: Active Protocol: Document 04/15/22 10:50 AW (Rec: 04/15/22 11:24 AW [id number]) PT-Bed Mobility Assessment Supine to Sit Supine to Sit Moderate Assistance,1 Person Assistance Scooting Scooting to Edge of Bed Moderate Assistance PT-Transfer Assessment Sit to and From Stand Sit to and from Stand Moderate Assistance,Maximum Assistance,1 Person Assistance ,Use of Upper Extremities Equipment Transfer Assistive Device Gait Belt,Front Wheeled Walker Orthotic/Prosthetic Devices or Brace: No Transfers Transfer Destination Chair,Bedside Commode Transfer Technique Stand Step Pivot Transfer Ability Level of Assist Maximum Assistance,1 Person Assistance,Use of Upper Extremities Comments Mobility Comments Pt completed AAROM heel slides with PT assist before sitting up EOB with mod Petros She stood mod A from the raised bed and used FWW to ambulate 5 feet to the [facility]. Mod/max A for transfer. She stood again after voiding, needing max A to stand from lower surface. She walked 3 feet to transfer to the chair with FWW mod/max A. She was left in the chair with call light and tray table in reach. Gait Assessment Gait Gait Assistance Required: Moderate Assistance,1 Person Assist Distance (Feet) 5 Able to Maintain Weight Bearing Status Yes During Gait Assistive Devices Assistive Device Gait Belt,Front Wheeled Walker Orthotic/Prosthetic Devices or Brace: No Gait Deviations General Gait Pattern Decreased Stride Length, Decreased Feet Clearance Factors Limiting Gait Function Factors Limiting Gait Function Decreased Activity Tolerance, Decreased Strength,Limited Range of Motion,Pain,Poor Balance Comments Gait Comments Good attention to WB. Pt is able to use BUE to maintain TTWB RLE. M5 PT-IP Objective Assessments Start: 04/14/22 13:19 Freq: NEEDED Status: Active Protocol: Document 04/14/22 09:56 AB (Rec: 04/14/22 13:38 AB [id number]) Orientation Orientation/Cognition Level of Alertness Alert Orientation Name,Place,Situation Language Function Ability No Deficits Noted Safety Awareness Decreased Safety Awareness Memory Description No Deficits Noted Gross Range of Motion Lower Extremity ROM Assessment Right Impaired Impairments R knee flexion: ~ 50 deg Strength Lower Extremity Strength Assessment Right Impaired Hip 3-/5 Knee 3+/5 Sensation Assessment Sensation Gross Sensation WNL Muscle Tone Muscle Tone WNL Yes M6 PT-IP Treatment Start: 04/14/22 13:19 Freq: NEEDED Status: Active Protocol: Document 04/15/22 10:50 AW (Rec: 04/15/22 11:24 AW [id number]) Physical Therapy Treatment Education Education Provided Weight Bearing Status,Safety M7 PT-IP Assessment and Plan Start: 04/14/22 13:19 Freq: NEEDED Status: Active Protocol: Document 04/15/22 10:50 AW (Rec: 04/15/22 11:24 AW [id number]) PT Summary Assessment and Plan Potential Rehabilitation Potential Good Summary Impairments Pain,ROM,Strength,Balance, Coordination,Sensation,Tone, Cognition,Bed Mobility, Transfers,Gait,Activity Tolerance Progress Towards Goals Slow Progress due to Pain,Slow Progress due to Activity Tolerance Assessment Summary Pt continues to progress slowly due to pain, poor activity tolerance, and anxiety. Pt benefits from frequent cues for diaphragmatic breathing to manage her pain and for physiologic quieting. She will require SNF rehab to improve her strength and mobility independence. Goals Bed Mobility Goal Contact Guard Assistance Transfer Goal Contact Guard Assistance,Front Wheeled Walker Gait Goal Contact Guard Assistance,Front Wheel Walker Gait Distance 25 Days to Meet Goals 10 Frequency of Treatment Frequency Of Treatment Twice a Day Treatment Plan Physical Therapy Treatment Plan Bed Mobility Training,Transfer Training,Gait Training, Therapeutic Exercise,Balance Retraining,Post Op Education, Discharge Planning,Hot or Cold Pack,Neuromuscular Re-ed, Coordination Retraining,Manual Therapy Weight Bearing Status Weight Bearing Status Touch Down Weight Bearing Allowed Weight Bearing Amount (enter % Per Dr. Shi's Note: TTWB or or #) (%) PWB up to 50#; talked with DELFINO Byrne and stated that Dr. Shi told him PWB up to 100#. Recommendations To Nursing Amount of Assist Needed 2 Person Assist Discharge Recommendations PT Discharge Recommendations SNF Rehab Transportation Needs at Discharge Wheelchair/Cabulance
[2022-04-15 11:16] LABS: Add Manual Diff / Slide Review NO; Basophils Absolute Auto 0 /uL (0-100); Basophils Percent Auto 0.5 % (0-2); Eosinophils Absolute Auto 100 /uL (0-450); Hematocrit 32.2 % (36-46); Lymphocytes Absolute Auto 1500 /uL (1100-4500); Lymphocytes Percent Auto 15.1 % (25-40); Mean Corpuscular HGB Conc 34.3 % (30-36); Mean Corpuscular Hemoglobin 33.9 PG (26-34); Mean Corpuscular Volume 98.7 fL (80-100); Monocytes Absolute Auto 1300 /uL (0-900); Monocytes Percent Auto 13.1 % (3-14); Neutrophils Absolute Auto 6800 /uL (1500-7000); Neutrophils Percent Auto 70.3 % (50-75); Platelet Count 187 X10^3/uL (150-400); Red Blood Cell Count 3.26 X10^6/uL (4.0-5.2); Red Cell Distribution Width 12.5 % (11.6-14.8); White Blood Cell Count 9.7 X10^3/uL (4.5-11.0)
--- NOTE | 2022-04-15 12:40 | CM.DPC ---
DCP/continued: Received notification that patient okay to d/c to SNF today. Spoke with Dr. Shi whom reports that she will do orders. Placed call to October at [facility] and she is agreeable to accept. 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 RN brock pelaez to call nursing report. Met with patient and she is aware and agreeable to plan. COVID test ordered per facilities request. PASSR, orders, d/c summary, and prescription/med sheet all faxed to [facility] prior to d/c. Important message from medicare discussed and patient denies any concerns. P: [facility] today. SYLWIA
[2022-04-15 12:44] LABS: Appearance Urine UA CLEAR; Bilirubin Urine UA NEGATIVE (NEGATIVE); Color Urine UA YELLOW; Glucose Urine UA NEGATIVE (Negative); Ketones Urine UA NEGATIVE (NEGATIVE); Leukocyte Esterase Urine UA TRACE (NEGATIVE); Nitrite Urine UA POSITIVE (Negative); Occult Blood Urine UA 2+ (Negative); Protein Urine UA TRACE (Negative)
[2022-04-15 12:57] LABS: COVID19 -Nasal RAPID Negative (Negative)
[2022-04-15 13:02] LABS: Bacteria Urine Occasional (0-1); Culture Indicated Urine Specimen Cultured; Mucus Urine 1+ (Negative); RBC Urine 5-10/HPF (0-5/HPF); Squamous Epithelial Cell Urine 0-1 /HPF (0-5/HPF); Transitional Epi Cells Urine 0-1/HPF (0-5/HPF); WBC Urine 5-10/HPF (0-5/HPF)
--- NOTE | 2022-04-15 15:26 | PC.NURSE ---
patient a/o, voices needs. 1pa ADL assist, 2pa OOB to chair w/ FWW, gait belt. WBAT 50%. R hip incision is covered, CDI. izzy dressing is CDI. R hip is slightly swollen, ice packs applied. 2+ non pitting edema to BLE's / feet. + CSM checks. bp is 115/50's and symptomatic for dizziness. bp meds held. requested pain med x 2 for btp, 7/10 w/ movement. im feeling more stiff today. d/c orders. call to [facility] report given to DEBBY Johnson. notified that patient will need a tall w/c w/ extending leg rests for R hip fx. extra izzy dressing given to patient to take w/ her. vs obtained : 109/52, pulse 69, temp 99.0. reports still feeling dizzy. encouraged to drink plenty of fluids and to keep b/p up.
== END 2022-04-15 13:00 | DRG 481 ==
LOC: ED 19:33 → AC 23:29
PROVIDERS: Family Medicine; Orthopaedic Surgery; Student in an Organized Health Care Education/Training Program; Admitting Provider Family Medicine; Emergency Provider Emergency Medicine; Family Provider Student in an Organized Health Care Education/Training Program; PCP Student in an Organized Health Care Education/Training Program; Referring Provider Emergency Medicine; Visit Provider Family Medicine
PROC: 0QS604Z Reposition Right Upper Femur with Internal Fixation Device, Open Approach (ICD-10-PCS; principal; 2022-04-13 14:15)
DX: M97.01XA Periprosthetic fracture around internal prosthetic right hip joint, initial encounter (principal); I48.20 Chronic atrial fibrillation, unspecified; I10 Essential (primary) hypertension; G89.18 Other acute postprocedural pain; R50.9 Fever, unspecified; Z79.01 Long term (current) use of anticoagulants; Z86.79 Personal history of other diseases of the circulatory system; Z87.891 Personal history of nicotine dependence; Z20.822 Contact with and (suspected) exposure to COVID-19
CPT/HCPCS: 36415; 71045; 73502; 73552; 73700; 76000; 80053; 81001; 85025; 85027; 85610; 87077; 87086; 87186; 87635; 94760; 96365; 96375; 97162; 97530; 99232; 99284; 99285; C9803; A9270; J0131; J0171; J0690; J1100; J1170; J2405; J2704; J3010; J3430

== ENCOUNTER → 2022-04-20 22:47 | Outpatient (ROUT) | payer MEDICARE, SELFPAY ==
[2022-04-12 01:05] VITALS: BMI 29.2
== END ==
PROVIDERS: Family Provider Student in an Organized Health Care Education/Training Program; PCP Student in an Organized Health Care Education/Training Program; Visit Provider Internal Medicine
DX: Z13.9 Encounter for screening, unspecified (principal)
CPT/HCPCS: 87086

== ENCOUNTER → 2022-04-27 12:13 | Outpatient (CLI) | payer MEDICARE, SELFPAY ==
[2022-04-12 01:05] VITALS: BMI 29.2
--- NOTE | 2022-04-27 | DI.US.S_ITS ---
PROCEDURE: US PERIPH VENOUS LOW EXTREM RT INDICATIONS: POST-OP EDEMA TECHNIQUE: Real-time imaging, as well as color and pulse Doppler interrogation, were performed of the lower extremity deep veins from the inguinal ligament to the popliteal fossa. COMPARISON: None. FINDINGS: The common femoral, femoral and popliteal veins are normally compressible, and free of intraluminal thrombus. Color and pulse Doppler demonstrate normal phasic intraluminal flow. There is normal augmentation response to distal compression maneuver. IMPRESSION: No DVT found. Dictated by: Bandar Prado M.D. on 04/27/2022 at 14:21 Approved by: Bandar Prado M.D. on 04/27/2022 at 14:21
== END ==
PROVIDERS: Family Provider Student in an Organized Health Care Education/Training Program; PCP Registered Nurse; Referring Provider Orthopaedic Surgery; Visit Provider Orthopaedic Surgery
DX: R60.0 Localized edema (principal)
CPT/HCPCS: 93971

== ENCOUNTER → 2022-09-28 10:19 | Outpatient (CLI) | payer MEDICARE, SELFPAY ==
[2022-04-12 01:05] VITALS: BMI 29.2
--- NOTE | 2022-09-28 | DI.MG.S_ITS ---
BILATERAL DIGITAL SCREENING MAMMOGRAM 3D/2D WITH CAD: 09/28/2022 CLINICAL: Routine screening. Comparison is made to exams dated: 02/04/2021 mammogram, 12/24/2018 mammogram, and 12/14/2016 mammogram - [facility]. Both breasts are extremely dense, which lowers the sensitivity of mammography (category d />75% glandular tissue). Current study was also evaluated with a Computer Aided Detection (CAD) system. There are benign calcifications in both breasts. No significant masses, calcifications, or other findings are seen in either breast. There has been no significant interval change. IMPRESSION: BENIGN There is no mammographic evidence of malignancy. A 1 year screening mammogram is recommended. Based on the Tyrer Cuzick model (a risk assessment model) the patient's lifetime risk is 3.4% and her 10 year risk is 0.0%. According to the ACR, ACS, and NCCN guidelines, an annual breast MRI exam along with mammogram is recommended if the patient's lifetime risk is 20% or greater. This exam was interpreted at Station ID: [id number]. NOTE: For mammograms, a report in lay terms will be sent to the patient. Approximately 15% of breast malignancies will not be visualized mammographically. In the management of a palpable breast mass, a negative mammogram must not discourage biopsy of a clinically suspicious lesion. Electronically Signed By: David chambers/aaron:09/28/2022 13:53:37 letter sent: Normal Exam ACR BI-RADS Category 2: Benign Finding(s) 3342F
--- NOTE | 2022-09-28 10:45 | DI.DEXA.S_ITS ---
Bone Density Report Name: AILYN BARGER Age: 82 Sex: Female Ethnicity: White Date of : 1940 Indication: postmenopausal; screening for osteoporosis; Referring Provider: JOYCE CONLEY Study: Bone densitometry was performed. Exam Date: September 28, 2022 Accession number: [id number] Bone Density: Region BMD T-score Z-score Classification AP Spine(L1-L4) 1.166 1.1 3.8 Normal Total Forearm (Left) 0.452 -2.4 0.6 Osteopenia 1/3 Forearm (Left) 0.599 -1.6 1.6 Osteopenia UD Forearm (Left) 0.297 -2.5 -0.3 Osteoporosis World Health Organization criteria for BMD impression classify patients as: Normal (T-score at or above -1.0), Osteopenia (T-score between -1.0 and -2.5), or Osteoporosis (T-score at or below -2.5). Previous Exams: -- Region Exam Age BMD T-score BMD Change BMD Change Date g/cm2 vs Baseline vs Previous -- AP Spine (L1-L4) 09/28/2022 82 1.166 1.1 0.030 (2.6%)# 0.030 (2.6%)# 11/03/2020 80 1.136 0.8 -- *Denotes significance at 95% confidence level, LSC for AP Spine = 0.022 g/cm2 # Denotes dissimilar scan types or analysis methods Impression: The patient has normal bone mass. No significant bone loss was observed. Discussion: LOW RISK OF FRACTURE; BONE DENSITY IS WELL ABOVE THE MINIMUM DESIRABLE LEVEL AND ABOVE AVERAGE FOR AGE AND SEX AT ALL SKELETAL SITES TESTED. This person's bone density is above expected limits for age and sex. This is rarely clinically significant, but should be pursued if there are significant musculoskeletal complaints. The patient should follow a healthful lifestyle (good nutrition with adequate calcium and vitamin D, and appropriate weight-bearing exercise). Follow-Up: Consider repeating this study in 5 years or sooner if there is some new clinical indication. Reported by: SHANIQUE ARTEAGA M.D. on 09/28/2022 10:57:00 AM.
== END ==
PROVIDERS: Family Provider Student in an Organized Health Care Education/Training Program; PCP Registered Nurse; Referring Provider Registered Nurse; Visit Provider Registered Nurse
DX: M81.0 Age-related osteoporosis without current pathological fracture (principal); Z12.31 Encounter for screening mammogram for malignant neoplasm of breast
CPT/HCPCS: 77063; 77067; 77080; 77081

== ENCOUNTER 2022-10-01 12:30 | Outpatient (RCR) | payer MEDICARE, SELFPAY ==
[2022-04-12 01:05] VITALS: BMI 29.2
--- NOTE | 2022-05-22 08:46 | PT.OIE ---
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) Fractures (10/08/07) Hayfever (1959) Heart failure, systolic History of UTI Lichen sclerosus et atrophicus (2011) Measles (1949) Microscopic hematuria Mitral stenosis Mixed incontinence Osteoarthritis (1996) Osteopenia Osteoporosis Postmenopausal atrophic vaginitis Valvular heart disease Past Surgical History (Last Reviewed 04/15/22 @ 10:02 by Ronni Ochoa MD) Anesthesia History of carpal tunnel repair (1979) History of carpal tunnel repair (03/23/04) History of cataract removal with insertion of prosthetic lens (01/02/12) History of cataract removal with insertion of prosthetic lens (12/19/11) History of hip replacement (05/08/10) History of hip surgery (05/16/08) History of hip surgery (10/08/07) History of incision and drainage (10/03/18) History of knee replacement (02/11/12) History of knee replacement (07/19/08) History of nasal surgery (10/03/11) History of orthopedic surgery (10/17/09) Status post vaginal hysterectomy (1974) Visit Care Team Role Provider Type Lisa Shi MD Physician Specialty: Orthopedics Orthopedic Surgery Address: [address] [place] [address], [address] Email: [email or web address] ASHWINI Meza Primary Care Provider Non-Staff Specialty: Family Practice Address: [address], [place], [address] Email: Rochelle Ren MD Family Provider Physician Specialty: Family Practice Address: [address] [place] [address], [place], [address] Email: [email or web address] Kerrie Chawla PA-C Attending Provider Advanced Title Supervisor Referring Provider Specialty: Orthopedics Orthopedic Surgery Address: [address] [place] [address], [place], [address] Email: [email or web address] Physical Therapy Initial Evaluation PT-OP-A Visit Information Start: 05/22/22 08:12 Freq: Status: Active Protocol: Document 05/22/22 08:12 SAK (Rec: 05/22/22 08:58 SAK [id number]) Out-Patient Physical Therapy Visit Information Visit Information Visit Type Initial Evaluation Visit Start Time 08:15 Visit Number 1 Evaluation Information Evaluation Date 05/22/22 PT-OP-B Current Condition Start: 05/22/22 08:12 Freq: Status: Active Protocol: Document 05/22/22 08:12 SAK (Rec: 05/22/22 08:58 SAK [id number]) Current Condition History of Current Condition Onset Date 04/11/22 Current Complaints weakness, difficulty with gait, LE swelling. History of Current Condition GLF 04/11/22 followed by ORIF 04/13/22 due to proximal right femur fracture. After discharge from hospital went to [facility] rehab. Discharged home approx 3 weeks ago. At this time patient partial weight-bearing at least until sees Dr. Shi tomorrow, using FWW. Denies significant pain. Has ramp into house, not using stairs. Uses w/c at times due to difficulty with prolonged standing on left foot. Min N/T under feet. HEP: standing march, knee flex right, heel/ toe raise left, squat, sit to stand. Wears heel lift in left shoe. Prior Treatments and Tests ORIF Future Testing and Treatments Planned Sees Dr. Shi tomorrow. Treatment Goals Patient/Caregiver Goals return to prior level of function Current Functional Impairments (Reported) Functional Limitations- ADL's uses walker Functional Limitations- Mobility/Gait using FWW, w/c PT-OP-C Subjective Start: 05/22/22 08:12 Freq: Status: Active Protocol: Document 05/22/22 08:12 SAK (Rec: 05/23/22 08:46 SAK [id number]) OP-PT Pain Assessment Location right hip Intensity 1 PT-OP-G Mobility & Gait Start: 05/22/22 08:12 Freq: Status: Active Protocol: Document 05/22/22 08:12 [facility] (Rec: 05/22/22 08:58 [facility] [id number]) OP Mobility Evaluation Bed Mobility Rolling indep, usually on side for sleep with pillow between legs or supine pillow under knees OP Gait Assessment Gait Gait Assistance Required: Standby Assistance Assistive Devices Assistive Device Front Wheeled Walker Gait Deviations General Gait Pattern Antalgic,Decreased Stride Length,Decreased Feet Clearance,Flexed Trunk Factors Limiting Gait Function Factors Limiting Gait Function Decreased Activity Tolerance, Decreased Strength Stair Climbing Evaluation Evaluation Level of Assist On Stairs Independent Technique/Endurance Stair Climbing Technique Step to Step PT-OP-J Posture/Palpation/Skin Start: 05/22/22 08:12 Freq: Status: Active Protocol: Document 05/22/22 08:12 [facility] (Rec: 05/23/22 08:46 [facility] [id number]) Skin Assessment Incisional Assessment Incision Appearance/Comments well healed multiple incisions right thigh, poor scar mobility with thickening in many areas. PT-OP-K Range of Motion Start: 05/22/22 08:12 Freq: Status: Active Protocol: Document 05/22/22 08:12 [facility] (Rec: 05/23/22 08:46 [facility] [id number]) Hip Goniometric Range of Motion Hip right Flexion w/Knee Flexed 90 Straight Leg Raise 55 Extension 0 Abduction 25 Internal Rotation 20 External Rotation 30 Hip ROM Limitations Hip ROM Limitations Soft Tissue Tightness PT-OP-M Strength Start: 05/22/22 08:12 Freq: Status: Active Protocol: Document 05/22/22 08:12 [facility] (Rec: 05/23/22 08:46 [facility] [id number]) Knee Strength Knee Manual Muscle Testing Right Comments no MMT due to recent surgery; appears less than anti-gravity strength Left Comments WFL; no MMT due to recent surgery PT-OP-Q Treatments Start: 05/22/22 08:12 Freq: Status: Active Protocol: Document 05/22/22 08:12 [facility] (Rec: 05/23/22 08:46 [facility] [id number]) Manual Therapy Treatment Soft Tissue Mobilization surgical scars Mobilization Type Myofascial Release,Strumming Intensity/Depth Moderate Body Position Hooklying Self-Care/Home Management Treatment Education Patient Education Home Exercise Program Other Education HEP review PT-OP-R Modalities Start: 05/22/22 08:12 Freq: Status: Active Protocol: Document 05/22/22 08:12 [facility] (Rec: 05/23/22 08:46 [facility] [id number]) Hot Pack/Cold Pack Treatment Hot Pack Location right hip Patient Position Hooklying Treatment Duration (minutes) 10 Patient Tolerance Good PT-OP-T Assessment and Plan Start: 05/22/22 08:12 Freq: Status: Active Protocol: Document 05/22/22 08:12 [facility] (Rec: 05/22/22 08:58 [facility] [id number]) Physical Therapy Assessment Rehab Potential Rehabilitation Potential Good Evaluation Complexity Number of Personal Factors/Comorbidities 1-2 Number of Body Systems Impaired 3 Clinical Presentation at Evaluation Evolving Impairments Impairments Activity Tolerance,Balance, Gait,Strength Goals Four Impairment lacking full knee extension right Short Term Goal (STG) Patient to be instructed in HEP for improving knee extension to support therapy activities STG Duration 06/13/22 Automated Access Systems Technician Goal (LTG) Achieve full knee extension actively for improved functional mobility LTG Duration 08/20/22 Three Impairment decreased scar mobility Short Term Goal (STG) Patient to be instructed in self massage of surgical scar to support PT tissue mobilization techniques STG Duration 06/13/22 Automated Access Systems Technician Goal (LTG) Improve scar mobility to WNL to allow full function of right LE LTG Duration 08/20/22 Two Impairment gait dysfunction Impairment antalgic gait, using FWW, step -to pattern on nstairs Automated Access Systems Technician Goal (LTG) Patient will be able to ambulate with least restrict device on all surfaces safely including with alternating pattern on stairs LTG Duration 08/20/22 One Impairment weakness Impairment right LE weakness Short Term Goal (STG) Patient to be instrsucted in HEP for purposes of LE strengthening STG Duration 06/27/22 Residential Goal (LTG) Patient will be independent and compliant with HEP and demonstrate 5/5 muscle strength right hip Assessment Summary Assessment Patient presents to PT s/p ORIF right hip following fall at home in which she sustained proximal femur fracture. Patient was discharged to rehab facility following hospitalization, returned home approx 2 weeks ago. She is partial weight-bearing right LE at this time which she appears to be complying with. She sees Dr. Shi tomorrow for follow-up and will await updated PT orders. She has typical post-op weakness and gait dysfunction, difficulty achieving full extension right knee due to gait technique. She has tightness of her surgical scars which will benefit from soft tissue mobilization techniques. She has swelling of her right LE and is wearing knee high compression stockings but thigh high were recommended. She will benefit from PT for rehab of her right hip to help her return to her prior level of function of ambulating with trekking poles or cane in the home and community. We discussed POC and she is in agreement. Unfortunately our clinic no longer offers aquatic PT so will provide instruction to patient in aquatic exercises that she may perform on her own, and/or refer her to appropriate aquatic exercise class. Physical Therapy Plan Frequency and Duration Frequency of Treatment 2x/Week Duration of treatment (weeks) 12 Plan of Care Start Date 05/23/22 Plan of Care End Date 08/21/22 Therapeutic Interventions Therapeutic Interventions Gait Training,Home Exercise Program,Manual Therapy,Patient /Caregiver Education,Self-Care /Home Management,Soft Tissue Mobilization,Taping, Therapeutic Activities, Therapeutic Exercises Modalities Cold Pack/Ice Massage,Electric Stimulation,Hot Packs, Iontophoresis Next Visit Focus/Plan Next Note Type Treatment Note Next Visit Plan Review HEP, gait training, progress HEP, provide scar mobilization, end with ice pack.
--- NOTE | 2022-05-23 08:47 | PT.OPPOC ---
Physical, Occupational & Speech Therapy At [facility] Current Diagnoses Personal history of (healed) traumatic fracture (05/22/22) Visit Care Team Role Provider Type Lisa Shi MD Physician Specialty: Orthopedics Orthopedic Surgery Address: [address] [place] [address], [address] Email: [email or web address] Meza Primary Care Provider Non-Staff Specialty: Family Practice Address: [address], [address] Email: Rochelle Ren MD Family Provider Physician Specialty: Family Practice Address: [address] [place] [address], [address] Email: [email or web address] Kerrie Chawla PA-C Attending Provider Advanced Tool Crib Lead Referring Provider Specialty: Orthopedics Orthopedic Surgery Address: [address] [place] [address], [address] Email: [email or web address] Plan Of Care PT-OP-T Assessment and Plan Start: 05/22/22 08:12 Freq: Status: Active Protocol: Document 05/22/22 08:12 MICHELLE (Rec: 05/22/22 08:58 SAK [id number]) Physical Therapy Assessment Rehab Potential Rehabilitation Potential Good Evaluation Complexity Number of Personal Factors/Comorbidities 1-2 Number of Body Systems Impaired 3 Clinical Presentation at Evaluation Evolving Impairments Impairments Activity Tolerance,Balance, Gait,Strength Goals Four Impairment lacking full knee extension right Short Term Goal (STG) Patient to be instructed in HEP for improving knee extension to support therapy activities STG Duration 06/13/22 Phlebotomy Program Coordinator Goal (LTG) Achieve full knee extension actively for improved functional mobility LTG Duration 08/20/22 Three Impairment decreased scar mobility Short Term Goal (STG) Patient to be instructed in self massage of surgical scar to support PT tissue mobilization techniques STG Duration 06/13/22 Phlebotomy Program Coordinator Goal (LTG) Improve scar mobility to WNL to allow full function of right LE LTG Duration 08/20/22 Two Impairment gait dysfunction Impairment antalgic gait, using FWW, step -to pattern on nstairs Phlebotomy Program Coordinator Goal (LTG) Patient will be able to ambulate with least restrict device on all surfaces safely including with alternating pattern on stairs LTG Duration 08/20/22 One Impairment weakness Impairment right LE weakness Short Term Goal (STG) Patient to be instrsucted in HEP for purposes of LE strengthening STG Duration 06/27/22 Residential Goal (LTG) Patient will be independent and compliant with HEP and demonstrate 5/5 muscle strength right hip Assessment Summary Assessment Patient presents to PT s/p ORIF right hip following fall at home in which she sustained proximal femur fracture. Patient was discharged to rehab facility following hospitalization, returned home approx 2 weeks ago. She is partial weight-bearing right LE at this time which she appears to be complying with. She sees Dr. Shi tomorrow for follow-up and will await updated PT orders. She has typical post-op weakness and gait dysfunction, difficulty achieving full extension right knee due to gait technique. She has tightness of her surgical scars which will benefit from soft tissue mobilization techniques. She has swelling of her right LE and is wearing knee high compression stockings but thigh high were recommended. She will benefit from PT for rehab of her right hip to help her return to her prior level of function of ambulating with trekking poles or cane in the home and community. We discussed POC and she is in agreement. Unfortunately our clinic no longer offers aquatic PT so will provide instruction to patient in aquatic exercises that she may perform on her own, and/or refer her to appropriate aquatic exercise class. Physical Therapy Plan Frequency and Duration Frequency of Treatment 2x/Week Duration of treatment (weeks) 12 Plan of Care Start Date 05/23/22 Plan of Care End Date 08/21/22 Therapeutic Interventions Therapeutic Interventions Gait Training,Home Exercise Program,Manual Therapy,Patient /Caregiver Education,Self-Care /Home Management,Soft Tissue Mobilization,Taping, Therapeutic Activities, Therapeutic Exercises Modalities Cold Pack/Ice Massage,Electric Stimulation,Hot Packs, Iontophoresis Next Visit Focus/Plan Next Note Type Treatment Note Next Visit Plan Review HEP, gait training, progress HEP, provide scar mobilization, end with ice pack. Plan of Care Dates Plan of Care Start Date 05/23/22 Plan of Care End Date 08/21/22 Electronically Signed by: Josephine Riggs, PT 05/23/22 0847 If you are in agreement with this Plan of Care, please return a signed and dated copy. I have reviewed this Plan of Care and certify that the skilled therapy services above are required to meet the patient?s needs. Physician Signature Date Printed Name and Credentials Clinical Instructor Signature Printed Name and Credentials
--- NOTE | 2022-05-24 16:45 | PT.OTN ---
Current Diagnoses Personal history of (healed) traumatic fracture (05/24/22) Physical Therapy Treatment Note PT-OP-A Visit Information Start: 05/22/22 08:12 Freq: Status: Active Protocol: Document 05/24/22 09:42 [facility] (Rec: 05/24/22 09:56 [facility] [id number]) Out-Patient Physical Therapy Visit Information Visit Information Visit Type Treatment Note Visit Note Saw Dr. Shi yesterday, can be 70% WB, be careful Visit Start Time 09:45 Visit Stop Time 10:40 Total Visit Minutes 55 Visit Number 2 Evaluation Information Evaluation Date 05/22/22 PT-OP-B Current Condition Start: 05/22/22 08:12 Freq: Status: Active Protocol: Document 05/24/22 09:42 SAK (Rec: 05/24/22 09:56 [facility] [id number]) Current Condition History of Current Condition Onset Date 04/11/22 Current Complaints weakness, difficulty with gait, LE swelling. History of Current Condition GLF 04/11/22 followed by ORIF 04/13/22 due to proximal right femur fracture. After discharge from hospital went to [facility] rehab. Discharged home approx 3 weeks ago. At this time patient partial weight-bearing at least until sees Dr. Shi tomorrow, using FWW. Denies significant pain. Has ramp into house, not using stairs. Uses w/c at times due to difficulty with prolonged standing on left foot. Min N/T under feet. HEP: standing march, knee flex right, heel/ toe raise left, squat, sit to stand. Wears heel lift in left shoe. Prior Treatments and Tests ORIF Treatment Goals Patient/Caregiver Goals return to prior level of function PT-OP-C Subjective Start: 05/22/22 08:12 Freq: Status: Active Protocol: Document 05/24/22 09:42 [facility]AK (Rec: 05/24/22 16:45 [facility] [id number]) OP-PT Subjective Patient Comments Patient Comments Saw Dr. Shi, can now be 70% WB right LE. Can't remember when returns for f/u PT-OP-G Mobility & Gait Start: 05/22/22 08:12 Freq: Status: Active Protocol: Document 05/22/22 08:12 SAK (Rec: 05/22/22 08:58 [facility] [id number]) OP Mobility Evaluation Bed Mobility Rolling indep, usually on side for sleep with pillow between legs or supine pillow under knees OP Gait Assessment Gait Gait Assistance Required: Standby Assistance Assistive Devices Assistive Device Front Wheeled Walker Gait Deviations General Gait Pattern Antalgic,Decreased Stride Length,Decreased Feet Clearance,Flexed Trunk Factors Limiting Gait Function Factors Limiting Gait Function Decreased Activity Tolerance, Decreased Strength Stair Climbing Evaluation Evaluation Level of Assist On Stairs Independent Technique/Endurance Stair Climbing Technique Step to Step PT-OP-J Posture/Palpation/Skin Start: 05/22/22 08:12 Freq: Status: Active Protocol: Document 05/22/22 08:12 [facility] (Rec: 05/23/22 08:46 [facility] [id number]) Skin Assessment Incisional Assessment Incision Appearance/Comments well healed multiple incisions right thigh, poor scar mobility with thickening in many areas. PT-OP-K Range of Motion Start: 05/22/22 08:12 Freq: Status: Active Protocol: Document 05/22/22 08:12 [facility] (Rec: 05/23/22 08:46 [facility] [id number]) Hip Goniometric Range of Motion Hip right Flexion w/Knee Flexed 90 Straight Leg Raise 55 Extension 0 Abduction 25 Internal Rotation 20 External Rotation 30 Hip ROM Limitations Hip ROM Limitations Soft Tissue Tightness PT-OP-M Strength Start: 05/22/22 08:12 Freq: Status: Active Protocol: Document 05/22/22 08:12 [facility] (Rec: 05/23/22 08:46 [facility] [id number]) Knee Strength Knee Manual Muscle Testing Right Comments no MMT due to recent surgery; appears less than anti-gravity strength Left Comments WFL; no MMT due to recent surgery PT-OP-Q Treatments Start: 05/22/22 08:12 Freq: Status: Active Protocol: Document 05/24/22 09:42 [facility] (Rec: 05/24/22 16:45 [facility] [id number]) Cardio Equipment Recumbent Stepper (Sci-Fit) Duration (Minutes) 5 Resistance 1 Seat Position 15 Therapeutic Exercises Standing Exercises wt shift Standing Exercise Name for training WB% Equipment Used parallel bars, scale, wooden lift Reps/Minutes 5 min Gait Training Gait Activity stairs Distance/Duration 4 x 2, 6 x 2 Treatment Focus max 70% WB, safety and sequencing parallel bars Level of Assistance VC Surface firm Distance/Duration 10 ft x 4 Treatment Focus max 70% WB level Device Used FWW Level of Assistance VC Surface firm Distance/Duration 30ft x 3 Treatment Focus upright posture, max 70% WB Manual Therapy Treatment Soft Tissue Mobilization surgical scars Body Location right anterior Mobilization Type Myofascial Release,Strumming Intensity/Depth Moderate Body Position Hooklying PT-OP-R Modalities Start: 05/22/22 08:12 Freq: Status: Active Protocol: Document 05/24/22 09:42 [facility] (Rec: 05/24/22 16:45 [facility] [id number]) Hot Pack/Cold Pack Treatment Cold Pack Location right hip Patient Position Sidelying PT-OP-T Assessment and Plan Start: 05/22/22 08:12 Freq: Status: Active Protocol: Document 05/24/22 09:42 [facility] (Rec: 05/24/22 09:56 [facility] [id number]) Physical Therapy Assessment Goals Four Impairment lacking full knee extension right Short Term Goal (STG) Patient to be instructed in HEP for improving knee extension to support therapy activities STG Duration 06/13/22 Collection Systems Administrator Goal (LTG) Achieve full knee extension actively for improved functional mobility LTG Duration 08/20/22 Three Impairment decreased scar mobility Short Term Goal (STG) Patient to be instructed in self massage of surgical scar to support PT tissue mobilization techniques STG Duration 06/13/22 Halfway Goal (LTG) Improve scar mobility to WNL to allow full function of right LE LTG Duration 08/20/22 Two Impairment gait dysfunction Impairment antalgic gait, using FWW, step -to pattern on nstairs Collection Systems Administrator Goal (LTG) Patient will be able to ambulate with least restrict device on all surfaces safely including with alternating pattern on stairs LTG Duration 08/20/22 One Impairment weakness Impairment right LE weakness Short Term Goal (STG) Patient to be instrsucted in HEP for purposes of LE strengthening STG Duration 06/27/22 Halfway Goal (LTG) Patient will be independent and compliant with HEP and demonstrate 5/5 muscle strength right hip Assessment Summary Assessment Good understanding of 70% WB after use of scale and instruction. Gait training with cues for heelstrike, normalization of gait. Instructed in gait on stairs with good understanding using meño railings. Cont with soft tissue mobilization of scar to address adhesions; instructed in self-massage. Physical Therapy Plan Frequency and Duration Frequency of Treatment 2x/Week Duration of treatment (weeks) 12 Plan of Care Start Date 05/23/22 Plan of Care End Date 08/21/22 Therapeutic Interventions Therapeutic Interventions Gait Training,Home Exercise Program,Manual Therapy,Patient /Caregiver Education,Self-Care /Home Management,Soft Tissue Mobilization,Taping, Therapeutic Activities, Therapeutic Exercises Modalities Cold Pack/Ice Massage,Electric Stimulation,Hot Packs, Iontophoresis Next Visit Focus/Plan Next Note Type Treatment Note Next Visit Plan Continue gait training, exercise progression, problem- solve for stairs and other logistics of going to the pool for aquatic exercise. Balance/proprioceptive training.
--- NOTE | 2022-05-30 09:02 | PT.OTN ---
Current Diagnoses Personal history of (healed) traumatic fracture (05/30/22) Physical Therapy Treatment Note PT-OP-A Visit Information Start: 05/22/22 08:12 Freq: Status: Active Protocol: Document 05/30/22 08:13 [facility] (Rec: 05/30/22 09:01 [facility] [id number]) Out-Patient Physical Therapy Visit Information Visit Information Visit Type Treatment Note Visit Number 3 Evaluation Information Evaluation Date 05/22/22 PT-OP-B Current Condition Start: 05/22/22 08:12 Freq: Status: Active Protocol: Document 05/30/22 08:13 [facility] (Rec: 05/30/22 09:01 [facility] [id number]) Current Condition History of Current Condition Onset Date 04/11/22 Current Complaints weakness, difficulty with gait, LE swelling. History of Current Condition GLF 04/11/22 followed by ORIF 04/13/22 due to proximal right femur fracture. After discharge from hospital went to [facility] rehab. Discharged home approx 3 weeks ago. At this time patient partial weight-bearing at least until sees Dr. Shi tomorrow, using FWW. Denies significant pain. Has ramp into house, not using stairs. Uses w/c at times due to difficulty with prolonged standing on left foot. Min N/T under feet. HEP: standing march, knee flex right, heel/ toe raise left, squat, sit to stand. Wears heel lift in left shoe. Prior Treatments and Tests ORIF PT-OP-C Subjective Start: 05/22/22 08:12 Freq: Status: Active Protocol: Document 05/30/22 08:13 [facility] (Rec: 05/30/22 09:01 [facility] [id number]) OP-PT Subjective Patient Comments Patient Comments Reports feels she is doing ok with not bearing too much weight, but c/o right knee pain PT-OP-G Mobility & Gait Start: 05/22/22 08:12 Freq: Status: Active Protocol: Document 05/22/22 08:12 [facility]AK (Rec: 05/22/22 08:58 [facility] [id number]) OP Mobility Evaluation Bed Mobility Rolling indep, usually on side for sleep with pillow between legs or supine pillow under knees OP Gait Assessment Gait Gait Assistance Required: Standby Assistance Assistive Devices Assistive Device Front Wheeled Walker Gait Deviations General Gait Pattern Antalgic,Decreased Stride Length,Decreased Feet Clearance,Flexed Trunk Factors Limiting Gait Function Factors Limiting Gait Function Decreased Activity Tolerance, Decreased Strength Stair Climbing Evaluation Evaluation Level of Assist On Stairs Independent Technique/Endurance Stair Climbing Technique Step to Step PT-OP-J Posture/Palpation/Skin Start: 05/22/22 08:12 Freq: Status: Active Protocol: Document 05/22/22 08:12 [facility] (Rec: 05/23/22 08:46 [facility] [id number]) Skin Assessment Incisional Assessment Incision Appearance/Comments well healed multiple incisions right thigh, poor scar mobility with thickening in many areas. PT-OP-K Range of Motion Start: 05/22/22 08:12 Freq: Status: Active Protocol: Document 05/22/22 08:12 [facility] (Rec: 05/23/22 08:46 [facility] [id number]) Hip Goniometric Range of Motion Hip right Flexion w/Knee Flexed 90 Straight Leg Raise 55 Extension 0 Abduction 25 Internal Rotation 20 External Rotation 30 Hip ROM Limitations Hip ROM Limitations Soft Tissue Tightness PT-OP-M Strength Start: 05/22/22 08:12 Freq: Status: Active Protocol: Document 05/22/22 08:12 [facility] (Rec: 05/23/22 08:46 [facility] [id number]) Knee Strength Knee Manual Muscle Testing Right Comments no MMT due to recent surgery; appears less than anti-gravity strength Left Comments WFL; no MMT due to recent surgery PT-OP-Q Treatments Start: 05/22/22 08:12 Freq: Status: Active Protocol: Document 05/30/22 08:13 [facility] (Rec: 05/30/22 09:01 [facility] [id number]) Cardio Equipment Recumbent Stepper (Sci-Fit) Duration (Minutes) 10 Resistance 1 Seat Position 15 Therapeutic Exercises Supine Exercises pillow squeeze Reps/Minutes 10x bridge Reps/Minutes 10x Sidelying Exercises clamshell Reps/Minutes 10x Standing Exercises squat Equipment Used mirror, parallel bars Reps/Minutes 10x Comments cue hip hinge wt shift Standing Exercise Name for training WB% Resistance 1 Equipment Used parallel bars, scale, wooden lift Reps/Minutes 5 min Comments UE's and LE's Gait Training Gait Activity stairs Distance/Duration 6 x 3 Treatment Focus max 70% WB, safety and sequencing Comments safety, sequencing, posture parallel bars Level of Assistance VC Surface firm Distance/Duration 10 ft x 4 Treatment Focus max 70% WB Comments cued upright posture, gluteal activation, inc knee extension right. level Device Used 4WW Level of Assistance VC Surface firm Distance/Duration 30ft x 3 Treatment Focus upright posture, max 70% WB Manual Therapy Treatment Soft Tissue Mobilization surgical scars Body Location right anterior Mobilization Type Myofascial Release,Strumming Intensity/Depth Moderate Body Position Hooklying PT-OP-R Modalities Start: 05/22/22 08:12 Freq: Status: Active Protocol: Document 05/30/22 08:13 [facility] (Rec: 05/30/22 09:01 [facility] [id number]) Hot Pack/Cold Pack Treatment Cold Pack Location right hip Patient Position Sidelying PT-OP-T Assessment and Plan Start: 05/22/22 08:12 Freq: Status: Active Protocol: Document 05/30/22 08:13 [facility] (Rec: 05/30/22 09:01 [facility] [id number]) Physical Therapy Assessment Impairments Impairments Activity Tolerance,Balance, Gait,Strength Goals Four Impairment lacking full knee extension right Short Term Goal (STG) Patient to be instructed in HEP for improving knee extension to support therapy activities STG Duration 06/13/22 Senior Living Goal (LTG) Achieve full knee extension actively for improved functional mobility LTG Duration 08/20/22 Three Impairment decreased scar mobility Short Term Goal (STG) Patient to be instructed in self massage of surgical scar to support PT tissue mobilization techniques STG Duration 06/13/22 Spanish Speaking Nanny Goal (LTG) Improve scar mobility to WNL to allow full function of right LE LTG Duration 08/20/22 Two Impairment gait dysfunction Impairment antalgic gait, using FWW, step -to pattern on nstairs Senior Living Goal (LTG) Patient will be able to ambulate with least restrict device on all surfaces safely including with alternating pattern on stairs LTG Duration 08/20/22 One Impairment weakness Impairment right LE weakness Short Term Goal (STG) Patient to be instrsucted in HEP for purposes of LE strengthening STG Duration 06/27/22 Senior Living Goal (LTG) Patient will be independent and compliant with HEP and demonstrate 5/5 muscle strength right hip Assessment Summary Assessment Patient ambulated in with excess IR right hip and foot inversion, excess knee flexion right; all improved with gait in parallel bars and with vc. Improved scar mobility with manual techniques. Physical Therapy Plan Frequency and Duration Frequency of Treatment 2x/Week Duration of treatment (weeks) 12 Plan of Care Start Date 05/23/22 Plan of Care End Date 08/21/22 Therapeutic Interventions Therapeutic Interventions Gait Training,Home Exercise Program,Manual Therapy,Patient /Caregiver Education,Self-Care /Home Management,Soft Tissue Mobilization,Taping, Therapeutic Activities, Therapeutic Exercises Modalities Cold Pack/Ice Massage,Electric Stimulation,Hot Packs, Iontophoresis Next Visit Focus/Plan Next Note Type Treatment Note Next Visit Plan Continue hip rehab per POC.
--- NOTE | 2022-06-01 11:18 | PT.OTN ---
Current Diagnoses Personal history of (healed) traumatic fracture (06/01/22) Physical Therapy Treatment Note PT-OP-A Visit Information Start: 05/22/22 08:12 Freq: Status: Active Protocol: Document 06/01/22 10:33 [facility] (Rec: 06/01/22 11:16 [facility] [id number]) Out-Patient Physical Therapy Visit Information Visit Information Visit Type Treatment Note Visit Start Time 10:33 Visit Stop Time 11:12 Total Visit Minutes 39 Visit Number 4 Evaluation Information Evaluation Date 05/22/22 Precautions Precautions Prior VO, pt can be 70% WBing, be careful. PT-OP-B Current Condition Start: 05/22/22 08:12 Freq: Status: Active Protocol: Document 05/30/22 08:13 [facility] (Rec: 05/30/22 09:01 [facility] [id number]) Current Condition History of Current Condition Onset Date 04/11/22 Current Complaints weakness, difficulty with gait, LE swelling. History of Current Condition GLF 04/11/22 followed by ORIF 04/13/22 due to proximal right femur fracture. After discharge from hospital went to [facility] rehab. Discharged home approx 3 weeks ago. At this time patient partial weight-bearing at least until sees Dr. Shi tomorrow, using FWW. Denies significant pain. Has ramp into house, not using stairs. Uses w/c at times due to difficulty with prolonged standing on left foot. Min N/T under feet. HEP: standing march, knee flex right, heel/ toe raise left, squat, sit to stand. Wears heel lift in left shoe. Prior Treatments and Tests ORIF PT-OP-C Subjective Start: 05/22/22 08:12 Freq: Status: Active Protocol: Document 06/01/22 10:33 [facility] (Rec: 06/01/22 11:16 [facility] [id number]) OP-PT Subjective Patient Comments Patient Comments Pt s/p post-op 7 weeks today. Doing well. No c/o pain. PT-OP-G Mobility & Gait Start: 05/22/22 08:12 Freq: Status: Active Protocol: Document 05/22/22 08:12 [facility] (Rec: 05/22/22 08:58 [facility] [id number]) OP Mobility Evaluation Bed Mobility Rolling indep, usually on side for sleep with pillow between legs or supine pillow under knees OP Gait Assessment Gait Gait Assistance Required: Standby Assistance Assistive Devices Assistive Device Front Wheeled Walker Gait Deviations General Gait Pattern Antalgic,Decreased Stride Length,Decreased Feet Clearance,Flexed Trunk Factors Limiting Gait Function Factors Limiting Gait Function Decreased Activity Tolerance, Decreased Strength Stair Climbing Evaluation Evaluation Level of Assist On Stairs Independent Technique/Endurance Stair Climbing Technique Step to Step PT-OP-J Posture/Palpation/Skin Start: 05/22/22 08:12 Freq: Status: Active Protocol: Document 05/22/22 08:12 [facility] (Rec: 05/23/22 08:46 [facility] [id number]) Skin Assessment Incisional Assessment Incision Appearance/Comments well healed multiple incisions right thigh, poor scar mobility with thickening in many areas. PT-OP-K Range of Motion Start: 05/22/22 08:12 Freq: Status: Active Protocol: Document 05/22/22 08:12 [facility] (Rec: 05/23/22 08:46 [facility] [id number]) Hip Goniometric Range of Motion Hip right Flexion w/Knee Flexed 90 Straight Leg Raise 55 Extension 0 Abduction 25 Internal Rotation 20 External Rotation 30 Hip ROM Limitations Hip ROM Limitations Soft Tissue Tightness PT-OP-M Strength Start: 05/22/22 08:12 Freq: Status: Active Protocol: Document 05/22/22 08:12 [facility] (Rec: 05/23/22 08:46 [facility] [id number]) Knee Strength Knee Manual Muscle Testing Right Comments no MMT due to recent surgery; appears less than anti-gravity strength Left Comments WFL; no MMT due to recent surgery PT-OP-Q Treatments Start: 05/22/22 08:12 Freq: Status: Active Protocol: Document 06/01/22 10:33 [facility] (Rec: 06/01/22 11:16 [facility] [id number]) Therapeutic Exercises Supine Exercises bridge Reps/Minutes 15x, with one quick rest after 10 reps Sidelying Exercises clamshell Side right Reps/Minutes 15x Sitting Exercises Ankle PF/DF Side bilateral Reps/Minutes 15x Standing Exercises Hip AB Side right Reps/Minutes 15x Marching Side right Reps/Minutes 15x Gait Training Gait Activity stairs Description Gait with meño railing & with 1 railing/SPC Device Used railing, SPC Level of Assistance v cuing for gait mechanics Distance/Duration 6 x 3 each: railing, 1 rail/ SPC. Treatment Focus max 70% WB, safety and sequencing Comments safety, sequencing, posture parallel bars Level of Assistance VC Surface firm Distance/Duration 10 ft x 6 Treatment Focus max 70% WB Comments cued upright posture, gluteal activation, inc knee extension right. PT-OP-R Modalities Start: 05/22/22 08:12 Freq: Status: Active Protocol: Document 05/30/22 08:13 [facility] (Rec: 05/30/22 09:01 [facility] [id number]) Hot Pack/Cold Pack Treatment Cold Pack Location right hip Patient Position Sidelying PT-OP-T Assessment and Plan Start: 05/22/22 08:12 Freq: Status: Active Protocol: Document 06/01/22 10:33 [facility] (Rec: 06/01/22 11:16 [facility] [id number]) Physical Therapy Assessment Goals Four Impairment lacking full knee extension right Short Term Goal (STG) Patient to be instructed in HEP for improving knee extension to support therapy activities STG Duration 06/13/22 Senior Care Goal (LTG) Achieve full knee extension actively for improved functional mobility LTG Duration 08/20/22 Three Impairment decreased scar mobility Short Term Goal (STG) Patient to be instructed in self massage of surgical scar to support PT tissue mobilization techniques STG Duration 06/13/22 Senior Care Goal (LTG) Improve scar mobility to WNL to allow full function of right LE LTG Duration 08/20/22 Two Impairment gait dysfunction Impairment antalgic gait, using FWW, step -to pattern on nstairs Shear Helper Goal (LTG) Patient will be able to ambulate with least restrict device on all surfaces safely including with alternating pattern on stairs LTG Duration 08/20/22 One Impairment weakness Impairment right LE weakness Short Term Goal (STG) Patient to be instrsucted in HEP for purposes of LE strengthening STG Duration 06/27/22 Senior Care Goal (LTG) Patient will be independent and compliant with HEP and demonstrate 5/5 muscle strength right hip Assessment Summary Assessment Improved confidence with stair ambulation with railing and with 1 railing/SPC after training. Improved gait mechanics, R foot toes are forward, R knee slightly flexed through gait, probably due to limitation in WBing. Gait training needed once pt becomes full WBing. Pt preferred to do STM to self at home today. Physical Therapy Plan Frequency and Duration Frequency of Treatment 2x/Week Duration of treatment (weeks) 12 Plan of Care Start Date 05/23/22 Plan of Care End Date 08/21/22 Next Visit Focus/Plan Next Note Type Treatment Note Next Visit Plan Continue hip rehab per POC.
--- NOTE | 2022-06-04 16:56 | PT.OTN ---
Current Diagnoses Personal history of (healed) traumatic fracture (06/04/22) Physical Therapy Treatment Note PT-OP-A Visit Information Start: 05/22/22 08:12 Freq: Status: Active Protocol: Document 06/04/22 11:16 SAK (Rec: 06/04/22 12:04 [facility] [id number]) Out-Patient Physical Therapy Visit Information Visit Information Visit Type Treatment Note Visit Start Time 11:15 Visit Stop Time 12:10 Total Visit Minutes 55 Visit Number 5 Evaluation Information Evaluation Date 05/22/22 Precautions Precautions Prior VO, pt can be 70% WBing, be careful. PT-OP-B Current Condition Start: 05/22/22 08:12 Freq: Status: Active Protocol: Document 05/30/22 08:13 SAK (Rec: 05/30/22 09:01 [facility] [id number]) Current Condition History of Current Condition Onset Date 04/11/22 Current Complaints weakness, difficulty with gait, LE swelling. History of Current Condition GLF 04/11/22 followed by ORIF 04/13/22 due to proximal right femur fracture. After discharge from hospital went to [facility] rehab. Discharged home approx 3 weeks ago. At this time patient partial weight-bearing at least until sees Dr. Shi tomorrow, using FWW. Denies significant pain. Has ramp into house, not using stairs. Uses w/c at times due to difficulty with prolonged standing on left foot. Min N/T under feet. HEP: standing july, knee flex right, heel/ toe raise left, squat, sit to stand. Wears heel lift in left shoe. Prior Treatments and Tests ORIF PT-OP-C Subjective Start: 05/22/22 08:12 Freq: Status: Active Protocol: Document 06/04/22 11:16 SAK (Rec: 06/04/22 12:04 [facility] [id number]) OP-PT Subjective Patient Comments Patient Comments Saturday will be 8 weeks post-op . [place] she overdid last session, doing 12 reps each instead of 15 as done at last session. PT-OP-G Mobility & Gait Start: 05/22/22 08:12 Freq: Status: Active Protocol: Document 05/22/22 08:12 SAK (Rec: 05/22/22 08:58 [facility] [id number]) OP Mobility Evaluation Bed Mobility Rolling indep, usually on side for sleep with pillow between legs or supine pillow under knees OP Gait Assessment Gait Gait Assistance Required: Standby Assistance Assistive Devices Assistive Device Front Wheeled Walker Gait Deviations General Gait Pattern Antalgic,Decreased Stride Length,Decreased Feet Clearance,Flexed Trunk Factors Limiting Gait Function Factors Limiting Gait Function Decreased Activity Tolerance, Decreased Strength Stair Climbing Evaluation Evaluation Level of Assist On Stairs Independent Technique/Endurance Stair Climbing Technique Step to Step PT-OP-J Posture/Palpation/Skin Start: 05/22/22 08:12 Freq: Status: Active Protocol: Document 05/22/22 08:12 [facility] (Rec: 05/23/22 08:46 [facility] [id number]) Skin Assessment Incisional Assessment Incision Appearance/Comments well healed multiple incisions right thigh, poor scar mobility with thickening in many areas. PT-OP-K Range of Motion Start: 05/22/22 08:12 Freq: Status: Active Protocol: Document 05/22/22 08:12 [facility] (Rec: 05/23/22 08:46 [facility] [id number]) Hip Goniometric Range of Motion Hip right Flexion w/Knee Flexed 90 Straight Leg Raise 55 Extension 0 Abduction 25 Internal Rotation 20 External Rotation 30 Hip ROM Limitations Hip ROM Limitations Soft Tissue Tightness PT-OP-M Strength Start: 05/22/22 08:12 Freq: Status: Active Protocol: Document 05/22/22 08:12 [facility] (Rec: 05/23/22 08:46 [facility] [id number]) Knee Strength Knee Manual Muscle Testing Right Comments no MMT due to recent surgery; appears less than anti-gravity strength Left Comments WFL; no MMT due to recent surgery PT-OP-Q Treatments Start: 05/22/22 08:12 Freq: Status: Active Protocol: Document 06/04/22 11:16 [facility] (Rec: 06/04/22 12:04 [facility] [id number]) Cardio Equipment Recumbent Stepper (Sci-Fit) Duration (Minutes) 10 Resistance 1 Seat Position 15 Gym Equipment Shuttle Recovery Bilateral Heel Raises Resistance 25# Shuttle Recovery Platform Stable Reps/Time 10 Unilateral Squats Resistance 25# Shuttle Recovery Platform Stable Reps/Time 10 Bilateral Squats Resistance 50# Shuttle Recovery Platform Stable Reps/Time 10 Gait Training Gait Activity step-ups Distance/Duration 4 x 4 ascend and descend with right LE on scale Treatment Focus weight-bearing precaution/ education Comments use of scale stairs Description Gait with meño railing & with 1 railing/SPC Device Used railing, SPC Level of Assistance v cuing for gait mechanics Distance/Duration 6 x 3 meño rails Treatment Focus max 70% WB, safety and sequencing Comments safety, sequencing, posture parallel bars Level of Assistance VC Surface firm Distance/Duration 10 ft x 2 Treatment Focus max 70% WB Comments cued upright posture, gluteal activation, inc knee extension right. Manual Therapy Treatment Soft Tissue Mobilization piriformis, quads, glut med Mobilization Type Myofascial Release,Strumming Intensity/Depth Moderate Body Position Sidelying surgical scars Body Location right anterior Mobilization Type Myofascial Release,Strumming Intensity/Depth Moderate Body Position Sidelying Self-Care/Home Management Treatment Education Patient Education Home Exercise Program Other Education self-massage with use of tennis ball PT-OP-R Modalities Start: 05/22/22 08:12 Freq: Status: Active Protocol: Document 06/04/22 11:16 SAK (Rec: 06/04/22 16:55 [facility] [id number]) Hot Pack/Cold Pack Treatment Cold Pack Location right hip Patient Position Sidelying PT-OP-T Assessment and Plan Start: 05/22/22 08:12 Freq: Status: Active Protocol: Document 06/04/22 11:16 SAK (Rec: 06/04/22 12:04 [facility] [id number]) Physical Therapy Assessment Goals Four Impairment lacking full knee extension right Short Term Goal (STG) Patient to be instructed in HEP for improving knee extension to support therapy activities STG Duration 06/13/22 Cad Librarian Goal (LTG) Achieve full knee extension actively for improved functional mobility LTG Duration 08/20/22 Three Impairment decreased scar mobility Short Term Goal (STG) Patient to be instructed in self massage of surgical scar to support PT tissue mobilization techniques STG Duration 06/13/22 Cad Librarian Goal (LTG) Improve scar mobility to WNL to allow full function of right LE LTG Duration 08/20/22 Two Impairment gait dysfunction Impairment antalgic gait, using FWW, step -to pattern on nstairs Nursing Home Goal (LTG) Patient will be able to ambulate with least restrict device on all surfaces safely including with alternating pattern on stairs LTG Duration 08/20/22 One Impairment weakness Impairment right LE weakness Short Term Goal (STG) Patient to be instrsucted in HEP for purposes of LE strengthening STG Duration 06/27/22 Nursing Home Goal (LTG) Patient will be independent and compliant with HEP and demonstrate 5/5 muscle strength right hip Assessment Summary Assessment Patient doing good job maintaining weight-bearing 70% or less right LE with improving gait mechanics. Self-modified exercise intensity at home. Benefits from soft tissue mob. Physical Therapy Plan Frequency and Duration Frequency of Treatment 2x/Week Duration of treatment (weeks) 12 Plan of Care Start Date 05/23/22 Plan of Care End Date 08/21/22 Therapeutic Interventions Therapeutic Interventions Gait Training,Home Exercise Program,Manual Therapy,Patient /Caregiver Education,Self-Care /Home Management,Soft Tissue Mobilization,Taping, Therapeutic Activities, Therapeutic Exercises Modalities Cold Pack/Ice Massage,Electric Stimulation,Hot Packs, Iontophoresis Next Visit Focus/Plan Next Note Type Treatment Note Next Visit Plan Continue gait training level and stairs, hip strengthening, soft tissue mobilization quads, IT band, piriformis, gluts, scar.
--- NOTE | 2022-06-07 15:25 | PT.OTN ---
Current Diagnoses Personal history of (healed) traumatic fracture (06/07/22) Physical Therapy Treatment Note PT-OP-A Visit Information Start: 05/22/22 08:12 Freq: Status: Active Protocol: Document 06/07/22 10:29 [facility] (Rec: 06/07/22 11:18 [facility] [id number]) Out-Patient Physical Therapy Visit Information Visit Information Visit Type Treatment Note Visit Start Time 10:30 Total Visit Minutes 55 Visit Number 6 Evaluation Information Evaluation Date 05/22/22 Precautions Precautions Prior VO, pt can be 70% WBing, be careful. PT-OP-B Current Condition Start: 05/22/22 08:12 Freq: Status: Active Protocol: Document 05/30/22 08:13 SAK (Rec: 05/30/22 09:01 [facility] [id number]) Current Condition History of Current Condition Onset Date 04/11/22 Current Complaints weakness, difficulty with gait, LE swelling. History of Current Condition GLF 04/11/22 followed by ORIF 04/13/22 due to proximal right femur fracture. After discharge from hospital went to [facility] rehab. Discharged home approx 3 weeks ago. At this time patient partial weight-bearing at least until sees Dr. Shi tomorrow, using FWW. Denies significant pain. Has ramp into house, not using stairs. Uses w/c at times due to difficulty with prolonged standing on left foot. Min N/T under feet. HEP: standing march, knee flex right, heel/ toe raise left, squat, sit to stand. Wears heel lift in left shoe. Prior Treatments and Tests ORIF PT-OP-C Subjective Start: 05/22/22 08:12 Freq: Status: Active Protocol: Document 06/07/22 10:29 [facility] (Rec: 06/07/22 11:18 [facility] [id number]) OP-PT Subjective Patient Comments Patient Comments No new c/o, continues with 12 repetitions of HEP. PT-OP-G Mobility & Gait Start: 05/22/22 08:12 Freq: Status: Active Protocol: Document 05/22/22 08:12 SAK (Rec: 05/22/22 08:58 [facility] [id number]) OP Mobility Evaluation Bed Mobility Rolling indep, usually on side for sleep with pillow between legs or supine pillow under knees OP Gait Assessment Gait Gait Assistance Required: Standby Assistance Assistive Devices Assistive Device Front Wheeled Walker Gait Deviations General Gait Pattern Antalgic,Decreased Stride Length,Decreased Feet Clearance,Flexed Trunk Factors Limiting Gait Function Factors Limiting Gait Function Decreased Activity Tolerance, Decreased Strength Stair Climbing Evaluation Evaluation Level of Assist On Stairs Independent Technique/Endurance Stair Climbing Technique Step to Step PT-OP-J Posture/Palpation/Skin Start: 05/22/22 08:12 Freq: Status: Active Protocol: Document 05/22/22 08:12 [facility] (Rec: 05/23/22 08:46 [facility] [id number]) Skin Assessment Incisional Assessment Incision Appearance/Comments well healed multiple incisions right thigh, poor scar mobility with thickening in many areas. PT-OP-K Range of Motion Start: 05/22/22 08:12 Freq: Status: Active Protocol: Document 05/22/22 08:12 [facility] (Rec: 05/23/22 08:46 [facility] [id number]) Hip Goniometric Range of Motion Hip right Flexion w/Knee Flexed 90 Straight Leg Raise 55 Extension 0 Abduction 25 Internal Rotation 20 External Rotation 30 Hip ROM Limitations Hip ROM Limitations Soft Tissue Tightness PT-OP-M Strength Start: 05/22/22 08:12 Freq: Status: Active Protocol: Document 05/22/22 08:12 [facility] (Rec: 05/23/22 08:46 [facility] [id number]) Knee Strength Knee Manual Muscle Testing Right Comments no MMT due to recent surgery; appears less than anti-gravity strength Left Comments WFL; no MMT due to recent surgery PT-OP-Q Treatments Start: 05/22/22 08:12 Freq: Status: Active Protocol: Document 06/07/22 10:29 [facility] (Rec: 06/07/22 11:18 [facility] [id number]) Cardio Equipment Recumbent Stepper (Sci-Fit) Duration (Minutes) 10 Resistance 1 Seat Position 15 Gym Equipment Shuttle Recovery Bilateral Heel Raises Resistance 25# Shuttle Recovery Platform Stable Reps/Time 10x2 Unilateral Squats Resistance 25# Shuttle Recovery Platform Stable Reps/Time 10x2 Bilateral Squats Resistance 50# Shuttle Recovery Platform Stable Reps/Time 10x2 Gait Training Gait Activity level Device Used 4WW Level of Assistance VC Surface firm Distance/Duration 60'x 2, 20'x1 Treatment Focus upright posture, max 70% WB, dec limp Manual Therapy Treatment Soft Tissue Mobilization piriformis, quads, glut med Mobilization Type Instrument Assisted,Myofascial Release,Strumming Intensity/Depth Moderate Body Position Sidelying surgical scars Body Location right anterior Mobilization Type Myofascial Release,Strumming Intensity/Depth Moderate Body Position Sidelying Self-Care/Home Management Treatment Education Patient Education Home Exercise Program Other Education self-massage with use of tennis ball PT-OP-R Modalities Start: 05/22/22 08:12 Freq: Status: Active Protocol: Document 06/07/22 10:29 [facility] (Rec: 06/07/22 15:24 [facility] [id number]) Hot Pack/Cold Pack Treatment Cold Pack Location right hip Patient Position Sidelying Treatment Duration (minutes) 10 Patient Tolerance Good PT-OP-T Assessment and Plan Start: 05/22/22 08:12 Freq: Status: Active Protocol: Document 06/07/22 10:29 [facility] (Rec: 06/07/22 11:18 [facility] [id number]) Physical Therapy Assessment Goals Four Impairment lacking full knee extension right Short Term Goal (STG) Patient to be instructed in HEP for improving knee extension to support therapy activities STG Duration 06/13/22 Fdc Goal (LTG) Achieve full knee extension actively for improved functional mobility LTG Duration 08/20/22 Three Impairment decreased scar mobility Short Term Goal (STG) Patient to be instructed in self massage of surgical scar to support PT tissue mobilization techniques STG Duration 06/13/22 Agricultural Production Engineer Goal (LTG) Improve scar mobility to WNL to allow full function of right LE LTG Duration 08/20/22 Two Impairment gait dysfunction Impairment antalgic gait, using FWW, step -to pattern on nstairs Fdc Goal (LTG) Patient will be able to ambulate with least restrict device on all surfaces safely including with alternating pattern on stairs LTG Duration 08/20/22 One Impairment weakness Impairment right LE weakness Short Term Goal (STG) Patient to be instrsucted in HEP for purposes of LE strengthening STG Duration 06/27/22 Agricultural Production Engineer Goal (LTG) Patient will be independent and compliant with HEP and demonstrate 5/5 muscle strength right hip Assessment Summary Assessment 8 wks post-op tomorrow. Good progress, improved gait with cues, compliant with weight- bearing restrictions. Started use of suction tool for scar mobilization with good tolerance. Patient instructed to continue to follow precautions per physician. Physical Therapy Plan Frequency and Duration Frequency of Treatment 2x/Week Duration of treatment (weeks) 12 Plan of Care Start Date 05/23/22 Plan of Care End Date 08/21/22 Therapeutic Interventions Therapeutic Interventions Gait Training,Home Exercise Program,Manual Therapy,Patient /Caregiver Education,Self-Care /Home Management,Soft Tissue Mobilization,Taping, Therapeutic Activities, Therapeutic Exercises Modalities Cold Pack/Ice Massage,Electric Stimulation,Hot Packs, Iontophoresis Next Visit Focus/Plan Next Note Type Treatment Note Next Visit Plan Continue gait training level and stairs, hip strengthening, soft tissue mobilization quads, IT band, piriformis, gluts, scar.
--- NOTE | 2022-06-13 09:46 | PT.OTN ---
Current Diagnoses Personal history of (healed) traumatic fracture (06/13/22) Physical Therapy Treatment Note PT-OP-A Visit Information Start: 05/22/22 08:12 Freq: Status: Active Protocol: Document 06/13/22 09:02 [facility] (Rec: 06/13/22 09:46 [facility] [id number]) Out-Patient Physical Therapy Visit Information Visit Information Visit Type Treatment Note Visit Start Time 09:02 Visit Stop Time 09:55 Total Visit Minutes 53 Visit Number 7 Evaluation Information Evaluation Date 05/22/22 Precautions Precautions Prior VO, pt can be 70% WBing, be careful. PT-OP-B Current Condition Start: 05/22/22 08:12 Freq: Status: Active Protocol: Document 05/30/22 08:13 [facility]AK (Rec: 05/30/22 09:01 [facility] [id number]) Current Condition History of Current Condition Onset Date 04/11/22 Current Complaints weakness, difficulty with gait, LE swelling. History of Current Condition GLF 04/11/22 followed by ORIF 04/13/22 due to proximal right femur fracture. After discharge from hospital went to [facility] rehab. Discharged home approx 3 weeks ago. At this time patient partial weight-bearing at least until sees Dr. Shi tomorrow, using FWW. Denies significant pain. Has ramp into house, not using stairs. Uses w/c at times due to difficulty with prolonged standing on left foot. Min N/T under feet. HEP: standing july, knee flex right, heel/ toe raise left, squat, sit to stand. Wears heel lift in left shoe. Prior Treatments and Tests ORIF PT-OP-C Subjective Start: 05/22/22 08:12 Freq: Status: Active Protocol: Document 06/13/22 09:02 [facility] (Rec: 06/13/22 09:46 [facility] [id number]) OP-PT Subjective Patient Comments Patient Comments Has increased to 15 repetitions of each exercise. Knee has continued to be sore but maybe some better due to compensation. 5 stairs into house but has ramp, going downstairs has 10 stairs with railings meño. Sees Dr. Shi in 2 1/2 weeks. PT-OP-G Mobility & Gait Start: 05/22/22 08:12 Freq: Status: Active Protocol: Document 05/22/22 08:12 [facility] (Rec: 05/22/22 08:58 [facility] [id number]) OP Mobility Evaluation Bed Mobility Rolling indep, usually on side for sleep with pillow between legs or supine pillow under knees OP Gait Assessment Gait Gait Assistance Required: Standby Assistance Assistive Devices Assistive Device Front Wheeled Walker Gait Deviations General Gait Pattern Antalgic,Decreased Stride Length,Decreased Feet Clearance,Flexed Trunk Factors Limiting Gait Function Factors Limiting Gait Function Decreased Activity Tolerance, Decreased Strength Stair Climbing Evaluation Evaluation Level of Assist On Stairs Independent Technique/Endurance Stair Climbing Technique Step to Step PT-OP-J Posture/Palpation/Skin Start: 05/22/22 08:12 Freq: Status: Active Protocol: Document 05/22/22 08:12 [facility] (Rec: 05/23/22 08:46 [facility] [id number]) Skin Assessment Incisional Assessment Incision Appearance/Comments well healed multiple incisions right thigh, poor scar mobility with thickening in many areas. PT-OP-K Range of Motion Start: 05/22/22 08:12 Freq: Status: Active Protocol: Document 05/22/22 08:12 [facility] (Rec: 05/23/22 08:46 [facility] [id number]) Hip Goniometric Range of Motion Hip right Flexion w/Knee Flexed 90 Straight Leg Raise 55 Extension 0 Abduction 25 Internal Rotation 20 External Rotation 30 Hip ROM Limitations Hip ROM Limitations Soft Tissue Tightness PT-OP-M Strength Start: 05/22/22 08:12 Freq: Status: Active Protocol: Document 05/22/22 08:12 [facility] (Rec: 05/23/22 08:46 [facility] [id number]) Knee Strength Knee Manual Muscle Testing Right Comments no MMT due to recent surgery; appears less than anti-gravity strength Left Comments WFL; no MMT due to recent surgery PT-OP-Q Treatments Start: 05/22/22 08:12 Freq: Status: Active Protocol: Document 06/13/22 09:02 [facility] (Rec: 06/13/22 09:46 [facility] [id number]) Cardio Equipment Recumbent Stepper (Sci-Fit) Duration (Minutes) 12 Resistance 1.5 Seat Position 15 Gym Equipment Shuttle Recovery Bilateral Heel Raises Resistance 25# Shuttle Recovery Platform Stable Reps/Time 10x2 Unilateral Squats Resistance 37# Shuttle Recovery Platform Stable Reps/Time 10x2 Bilateral Squats Details cues for LE alignment Resistance 50#, 62# Shuttle Recovery Platform Stable Reps/Time 10x2 Gait Training Gait Activity step-ups Distance/Duration 4 x 4 ascend and descend with right LE on scale Treatment Focus weight-bearing precaution/ education Comments use of scale stairs Description Gait with meño railing & with 1 railing/SPC Device Used railing, SPC Level of Assistance v cuing for gait mechanics Distance/Duration 6 x 3 meño rails Treatment Focus max 70% WB, safety and sequencing Comments safety, sequencing, posture level Device Used 4WW Level of Assistance VC Surface firm Distance/Duration 60'x 2, 20'x1 Treatment Focus upright posture, max 70% WB, dec limp Manual Therapy Treatment Soft Tissue Mobilization piriformis, quads, glut med Mobilization Type Instrument Assisted,Myofascial Release,Strumming Intensity/Depth Moderate Body Position Sidelying surgical scars Body Location right anterior Mobilization Type Myofascial Release,Strumming Intensity/Depth Moderate Body Position Sidelying Neuro Re-Education Treatment Balance Activities foam stand Details EO, head turns, EC Equipment blue foam square Reps/Duration 3 min Self-Care/Home Management Treatment Education Patient Education Fall Risk,Home Exercise Program,Posture PT-OP-R Modalities Start: 05/22/22 08:12 Freq: Status: Active Protocol: Document 06/13/22 09:02 [facility] (Rec: 06/13/22 09:46 [facility] [id number]) Hot Pack/Cold Pack Treatment Cold Pack Location right hip Patient Position Sidelying Treatment Duration (minutes) 10 Patient Tolerance Good PT-OP-T Assessment and Plan Start: 05/22/22 08:12 Freq: Status: Active Protocol: Document 06/13/22 09:02 [facility] (Rec: 06/13/22 09:46 [facility] [id number]) Physical Therapy Assessment Goals Four Impairment lacking full knee extension right Short Term Goal (STG) Patient to be instructed in HEP for improving knee extension to support therapy activities STG Duration 06/13/22 Title Department Manager Goal (LTG) Achieve full knee extension actively for improved functional mobility LTG Duration 08/20/22 Three Impairment decreased scar mobility Short Term Goal (STG) Patient to be instructed in self massage of surgical scar to support PT tissue mobilization techniques STG Duration 06/13/22 Title Department Manager Goal (LTG) Improve scar mobility to WNL to allow full function of right LE LTG Duration 08/20/22 Two Impairment gait dysfunction Impairment antalgic gait, using FWW, step -to pattern on nstairs Long-Term Goal (LTG) Patient will be able to ambulate with least restrict device on all surfaces safely including with alternating pattern on stairs LTG Duration 08/20/22 One Impairment weakness Impairment right LE weakness Short Term Goal (STG) Patient to be instrsucted in HEP for purposes of LE strengthening STG Duration 06/27/22 Long-Term Goal (LTG) Patient will be independent and compliant with HEP and demonstrate 5/5 muscle strength right hip Assessment Summary Assessment Good progress with gait quality, decreased limp, improved gait on stairs. Physical Therapy Plan Frequency and Duration Frequency of Treatment 2x/Week Duration of treatment (weeks) 12 Plan of Care Start Date 05/23/22 Plan of Care End Date 08/21/22 Therapeutic Interventions Therapeutic Interventions Gait Training,Home Exercise Program,Manual Therapy,Patient /Caregiver Education,Self-Care /Home Management,Soft Tissue Mobilization,Taping, Therapeutic Activities, Therapeutic Exercises Modalities Cold Pack/Ice Massage,Electric Stimulation,Hot Packs, Iontophoresis Next Visit Focus/Plan Next Note Type Treatment Note Next Visit Plan Continue gait training level and stairs, hip strengthening, soft tissue mobilization quads, IT band, piriformis, gluts, scar.
--- NOTE | 2022-06-18 15:38 | PT.OTN ---
Current Diagnoses Personal history of (healed) traumatic fracture (06/18/22) Physical Therapy Treatment Note PT-OP-A Visit Information Start: 05/22/22 08:12 Freq: Status: Active Protocol: Document 06/18/22 13:53 [facility] (Rec: 06/18/22 14:31 [facility] [id number]) Out-Patient Physical Therapy Visit Information Visit Information Visit Type Treatment Note Visit Start Time 13:48 Visit Stop Time 14:42 Total Visit Minutes 54 Visit Number 8 Evaluation Information Evaluation Date 05/22/22 PT-OP-B Current Condition Start: 05/22/22 08:12 Freq: Status: Active Protocol: Document 05/30/22 08:13 [facility] (Rec: 05/30/22 09:01 [facility] [id number]) Current Condition History of Current Condition Onset Date 04/11/22 Current Complaints weakness, difficulty with gait, LE swelling. History of Current Condition GLF 04/11/22 followed by ORIF 04/13/22 due to proximal right femur fracture. After discharge from hospital went to [facility] rehab. Discharged home approx 3 weeks ago. At this time patient partial weight-bearing at least until sees Dr. Shi tomorrow, using FWW. Denies significant pain. Has ramp into house, not using stairs. Uses w/c at times due to difficulty with prolonged standing on left foot. Min N/T under feet. HEP: standing march, knee flex right, heel/ toe raise left, squat, sit to stand. Wears heel lift in left shoe. Prior Treatments and Tests ORIF PT-OP-C Subjective Start: 05/22/22 08:12 Freq: Status: Active Protocol: Document 06/18/22 13:53 [facility] (Rec: 06/18/22 14:31 [facility] [id number]) OP-PT Subjective Patient Comments Patient Comments Did stairs at home 3x (14 stairs) since last saw PT. 7 steps at home. PT-OP-G Mobility & Gait Start: 05/22/22 08:12 Freq: Status: Active Protocol: Document 05/22/22 08:12 [facility] (Rec: 05/22/22 08:58 [facility] [id number]) OP Mobility Evaluation Bed Mobility Rolling indep, usually on side for sleep with pillow between legs or supine pillow under knees OP Gait Assessment Gait Gait Assistance Required: Standby Assistance Assistive Devices Assistive Device Front Wheeled Walker Gait Deviations General Gait Pattern Antalgic,Decreased Stride Length,Decreased Feet Clearance,Flexed Trunk Factors Limiting Gait Function Factors Limiting Gait Function Decreased Activity Tolerance, Decreased Strength Stair Climbing Evaluation Evaluation Level of Assist On Stairs Independent Technique/Endurance Stair Climbing Technique Step to Step PT-OP-J Posture/Palpation/Skin Start: 05/22/22 08:12 Freq: Status: Active Protocol: Document 05/22/22 08:12 [facility] (Rec: 05/23/22 08:46 [facility] [id number]) Skin Assessment Incisional Assessment Incision Appearance/Comments well healed multiple incisions right thigh, poor scar mobility with thickening in many areas. PT-OP-K Range of Motion Start: 05/22/22 08:12 Freq: Status: Active Protocol: Document 05/22/22 08:12 [facility] (Rec: 05/23/22 08:46 [facility] [id number]) Hip Goniometric Range of Motion Hip right Flexion w/Knee Flexed 90 Straight Leg Raise 55 Extension 0 Abduction 25 Internal Rotation 20 External Rotation 30 Hip ROM Limitations Hip ROM Limitations Soft Tissue Tightness PT-OP-M Strength Start: 05/22/22 08:12 Freq: Status: Active Protocol: Document 05/22/22 08:12 [facility] (Rec: 05/23/22 08:46 [facility] [id number]) Knee Strength Knee Manual Muscle Testing Right Comments no MMT due to recent surgery; appears less than anti-gravity strength Left Comments WFL; no MMT due to recent surgery PT-OP-Q Treatments Start: 05/22/22 08:12 Freq: Status: Active Protocol: Document 06/18/22 13:53 [facility] (Rec: 06/18/22 14:31 [facility] [id number]) Cardio Equipment Recumbent Elliptical (Biodex) Duration (Minutes) 10 Resistance 2 Seat Position 11 Gym Equipment Shuttle Recovery Bilateral Heel Raises Resistance 25# Shuttle Recovery Platform Stable Reps/Time 10x2 Unilateral Squats Resistance 37# Shuttle Recovery Platform Stable Reps/Time 10x2 Bilateral Squats Details cues for LE alignment Resistance 62# Shuttle Recovery Platform Stable Reps/Time 10x2 Gait Training Gait Activity parallel bars Level of Assistance VC Surface firm Distance/Duration 10 ft x 2 Treatment Focus max 70% WB Comments cued upright posture, gluteal activation, inc knee extension right. level Device Used 4WW Level of Assistance VC Surface firm Distance/Duration 60'x 2, 20'x1 Treatment Focus upright posture, max 70% WB, dec limp Comments mirror for visual feedback, dec compensation Manual Therapy Treatment Soft Tissue Mobilization piriformis, quads, glut med Mobilization Type Instrument Assisted,Myofascial Release,Strumming Intensity/Depth Moderate Body Position Sidelying surgical scars Body Location right anterior Mobilization Type Myofascial Release,Strumming Intensity/Depth Moderate Body Position Sidelying Neuro Re-Education Treatment Balance Activities tiltboard Details A/P EO bal and wt shift PT-OP-R Modalities Start: 05/22/22 08:12 Freq: Status: Active Protocol: Document 06/18/22 13:53 [facility] (Rec: 06/18/22 14:31 [facility] [id number]) Hot Pack/Cold Pack Treatment Cold Pack Location right hip Patient Position Sidelying Treatment Duration (minutes) 10 Patient Tolerance Good PT-OP-T Assessment and Plan Start: 05/22/22 08:12 Freq: Status: Active Protocol: Document 06/18/22 13:53 [facility] (Rec: 06/18/22 14:31 [facility] [id number]) Physical Therapy Assessment Goals Four Impairment lacking full knee extension right Short Term Goal (STG) Patient to be instructed in HEP for improving knee extension to support therapy activities STG Duration 06/13/22 Retirement Goal (LTG) Achieve full knee extension actively for improved functional mobility LTG Duration 08/20/22 Three Impairment decreased scar mobility Short Term Goal (STG) Patient to be instructed in self massage of surgical scar to support PT tissue mobilization techniques STG Duration 06/13/22 Retirement Goal (LTG) Improve scar mobility to WNL to allow full function of right LE LTG Duration 08/20/22 Two Impairment gait dysfunction Impairment antalgic gait, using FWW, step -to pattern on nstairs [employer] Goal (LTG) Patient will be able to ambulate with least restrict device on all surfaces safely including with alternating pattern on stairs LTG Duration 08/20/22 One Impairment weakness Impairment right LE weakness Short Term Goal (STG) Patient to be instrsucted in HEP for purposes of LE strengthening STG Duration 06/27/22 Retirement Goal (LTG) Patient will be independent and compliant with HEP and demonstrate 5/5 muscle strength right hip Assessment Summary Assessment Inc time on gait training with mirror to dec compensation in stance right LE; improved with training. Inc weight on dbl leg shuttle leg press. Physical Therapy Plan Frequency and Duration Frequency of Treatment 2x/Week Duration of treatment (weeks) 12 Plan of Care Start Date 05/23/22 Plan of Care End Date 08/21/22 Therapeutic Interventions Therapeutic Interventions Gait Training,Home Exercise Program,Manual Therapy,Patient /Caregiver Education,Self-Care /Home Management,Soft Tissue Mobilization,Taping, Therapeutic Activities, Therapeutic Exercises Modalities Cold Pack/Ice Massage,Electric Stimulation,Hot Packs, Iontophoresis Next Visit Focus/Plan Next Note Type Treatment Note Next Visit Plan Continue gait training level and stairs, hip strengthening, soft tissue mobilization quads, IT band, piriformis, gluts, scar.
--- NOTE | 2022-06-20 16:14 | PT.OTN ---
Current Diagnoses Personal history of (healed) traumatic fracture (06/20/22) Physical Therapy Treatment Note PT-OP-A Visit Information Start: 05/22/22 08:12 Freq: Status: Active Protocol: Document 06/20/22 13:47 [facility] (Rec: 06/20/22 14:32 [facility] [id number]) Out-Patient Physical Therapy Visit Information Visit Information Visit Type Treatment Note Visit Start Time 13:47 Visit Stop Time 14:42 Total Visit Minutes 55 Visit Number 9 Evaluation Information Evaluation Date 05/22/22 Precautions Precautions Prior VO, pt can be 70% WBing, be careful. PT-OP-B Current Condition Start: 05/22/22 08:12 Freq: Status: Active Protocol: Document 05/30/22 08:13 [facility] (Rec: 05/30/22 09:01 [facility] [id number]) Current Condition History of Current Condition Onset Date 04/11/22 Current Complaints weakness, difficulty with gait, LE swelling. History of Current Condition GLF 04/11/22 followed by ORIF 04/13/22 due to proximal right femur fracture. After discharge from hospital went to [facility] rehab. Discharged home approx 3 weeks ago. At this time patient partial weight-bearing at least until sees Dr. Shi tomorrow, using FWW. Denies significant pain. Has ramp into house, not using stairs. Uses w/c at times due to difficulty with prolonged standing on left foot. Min N/T under feet. HEP: standing march, knee flex right, heel/ toe raise left, squat, sit to stand. Wears heel lift in left shoe. Prior Treatments and Tests ORIF PT-OP-C Subjective Start: 05/22/22 08:12 Freq: Status: Active Protocol: Document 06/20/22 13:47 [facility] (Rec: 06/20/22 14:32 [facility] [id number]) OP-PT Subjective Patient Comments Patient Comments Hasn't used stairs since last seen in PT. Has some achy pain while doing exercises in PM. No icing at home. PT-OP-G Mobility & Gait Start: 05/22/22 08:12 Freq: Status: Active Protocol: Document 05/22/22 08:12 [facility] (Rec: 05/22/22 08:58 [facility] [id number]) OP Mobility Evaluation Bed Mobility Rolling indep, usually on side for sleep with pillow between legs or supine pillow under knees OP Gait Assessment Gait Gait Assistance Required: Standby Assistance Assistive Devices Assistive Device Front Wheeled Walker Gait Deviations General Gait Pattern Antalgic,Decreased Stride Length,Decreased Feet Clearance,Flexed Trunk Factors Limiting Gait Function Factors Limiting Gait Function Decreased Activity Tolerance, Decreased Strength Stair Climbing Evaluation Evaluation Level of Assist On Stairs Independent Technique/Endurance Stair Climbing Technique Step to Step PT-OP-J Posture/Palpation/Skin Start: 05/22/22 08:12 Freq: Status: Active Protocol: Document 05/22/22 08:12 [facility] (Rec: 05/23/22 08:46 [facility] [id number]) Skin Assessment Incisional Assessment Incision Appearance/Comments well healed multiple incisions right thigh, poor scar mobility with thickening in many areas. PT-OP-K Range of Motion Start: 05/22/22 08:12 Freq: Status: Active Protocol: Document 05/22/22 08:12 [facility] (Rec: 05/23/22 08:46 [facility] [id number]) Hip Goniometric Range of Motion Hip right Flexion w/Knee Flexed 90 Straight Leg Raise 55 Extension 0 Abduction 25 Internal Rotation 20 External Rotation 30 Hip ROM Limitations Hip ROM Limitations Soft Tissue Tightness PT-OP-M Strength Start: 05/22/22 08:12 Freq: Status: Active Protocol: Document 05/22/22 08:12 [facility] (Rec: 05/23/22 08:46 [facility] [id number]) Knee Strength Knee Manual Muscle Testing Right Comments no MMT due to recent surgery; appears less than anti-gravity strength Left Comments WFL; no MMT due to recent surgery PT-OP-Q Treatments Start: 05/22/22 08:12 Freq: Status: Active Protocol: Document 06/20/22 13:47 [facility] (Rec: 06/20/22 14:32 [facility] [id number]) Cardio Equipment Recumbent Elliptical (Biodex) Duration (Minutes) 10 Resistance 2 Seat Position 11 Recumbent Stepper (Sci-Fit) Duration (Minutes) 10 Resistance 2 Seat Position 16 Gym Equipment Shuttle Recovery Bilateral Heel Raises Resistance 50# Shuttle Recovery Platform Stable Reps/Time 10x2 Unilateral Squats Resistance 50# Shuttle Recovery Platform Stable Reps/Time 10x2 Bilateral Squats Details cues for LE alignment Resistance 75# Shuttle Recovery Platform Stable Reps/Time 10x2 Gait Training Gait Activity parallel bars Level of Assistance VC Surface firm Distance/Duration 10 ft x 2 Treatment Focus max 70% WB Comments cued upright posture, gluteal activation, inc knee extension right. level Device Used 4WW Level of Assistance VC Surface firm Distance/Duration 60'x 2, 20'x1 Treatment Focus upright posture, max 70% WB, dec limp Comments mirror for visual feedback, dec compensation Manual Therapy Treatment Soft Tissue Mobilization piriformis, quads, glut med Mobilization Type Instrument Assisted,Myofascial Release,Strumming Intensity/Depth Moderate Body Position Sidelying surgical scars Body Location right anterior Mobilization Type Myofascial Release,Strumming Intensity/Depth Moderate Body Position Sidelying Neuro Re-Education Treatment Balance Activities tiltboard Details A/P EO bal and wt shift foam stand Details EO, head turns, EC Equipment blue foam square Reps/Duration 3 min Self-Care/Home Management Treatment Education Patient Education Home Exercise Program,Joint Protection,Posture,Safety PT-OP-R Modalities Start: 05/22/22 08:12 Freq: Status: Active Protocol: Document 06/20/22 13:47 [facility] (Rec: 06/20/22 14:32 [facility] [id number]) Hot Pack/Cold Pack Treatment Cold Pack Location right hip Patient Position Sidelying Treatment Duration (minutes) 10 Patient Tolerance Good PT-OP-T Assessment and Plan Start: 05/22/22 08:12 Freq: Status: Active Protocol: Document 06/20/22 13:47 [facility] (Rec: 06/20/22 14:32 [facility] [id number]) Physical Therapy Assessment Goals Four Impairment lacking full knee extension right Short Term Goal (STG) Patient to be instructed in HEP for improving knee extension to support therapy activities STG Duration 06/13/22 [employer] Goal (LTG) Achieve full knee extension actively for improved functional mobility LTG Duration 08/20/22 Three Impairment decreased scar mobility Short Term Goal (STG) Patient to be instructed in self massage of surgical scar to support PT tissue mobilization techniques STG Duration 06/13/22 [employer] Goal (LTG) Improve scar mobility to WNL to allow full function of right LE LTG Duration 08/20/22 Two Impairment gait dysfunction Impairment antalgic gait, using FWW, step -to pattern on nstairs [facility] Goal (LTG) Patient will be able to ambulate with least restrict device on all surfaces safely including with alternating pattern on stairs LTG Duration 08/20/22 One Impairment weakness Impairment right LE weakness Short Term Goal (STG) Patient to be instrsucted in HEP for purposes of LE strengthening STG Duration 06/27/22 [employer] Goal (LTG) Patient will be independent and compliant with HEP and demonstrate 5/5 muscle strength right hip Progress Towards Goals Progress Towards Goals Progressing Toward Goals Assessment Summary Assessment Improving gait with dec compensation. Able to progress resistance on shuttle leg press and progress to legs only on shuttle leg press . Patient compliant to HEP Physical Therapy Plan Frequency and Duration Frequency of Treatment 2x/Week Duration of treatment (weeks) 12 Plan of Care Start Date 05/23/22 Plan of Care End Date 08/21/22 Therapeutic Interventions Therapeutic Interventions Gait Training,Home Exercise Program,Manual Therapy,Patient /Caregiver Education,Self-Care /Home Management,Soft Tissue Mobilization,Taping, Therapeutic Activities, Therapeutic Exercises Modalities Cold Pack/Ice Massage,Electric Stimulation,Hot Packs, Iontophoresis Next Visit Focus/Plan Next Note Type Treatment Note Next Visit Plan Continue gait training level and stairs, hip strengthening, soft tissue mobilization quads, IT band, piriformis, gluts, scar.
--- NOTE | 2022-06-25 16:07 | PT.OTN ---
Current Diagnoses Personal history of (healed) traumatic fracture (06/25/22) Physical Therapy Treatment Note PT-OP-A Visit Information Start: 05/22/22 08:12 Freq: Status: Active Protocol: Document 06/25/22 13:47 [facility] (Rec: 06/25/22 14:30 [facility] [id number]) Out-Patient Physical Therapy Visit Information Visit Information Visit Type Treatment Note Visit Start Time 13:45 Visit Stop Time 14:35 Total Visit Minutes 50 Visit Number 10 Evaluation Information Evaluation Date 05/22/22 Precautions Precautions Prior VO, pt can be 70% WBing, be careful. PT-OP-B Current Condition Start: 05/22/22 08:12 Freq: Status: Active Protocol: Document 05/30/22 08:13 [facility] (Rec: 05/30/22 09:01 [facility] [id number]) Current Condition History of Current Condition Onset Date 04/11/22 Current Complaints weakness, difficulty with gait, LE swelling. History of Current Condition GLF 04/11/22 followed by ORIF 04/13/22 due to proximal right femur fracture. After discharge from hospital went to [facility] rehab. Discharged home approx 3 weeks ago. At this time patient partial weight-bearing at least until sees Dr. Shi tomorrow, using FWW. Denies significant pain. Has ramp into house, not using stairs. Uses w/c at times due to difficulty with prolonged standing on left foot. Min N/T under feet. HEP: standing march, knee flex right, heel/ toe raise left, squat, sit to stand. Wears heel lift in left shoe. Prior Treatments and Tests ORIF PT-OP-C Subjective Start: 05/22/22 08:12 Freq: Status: Active Protocol: Document 06/25/22 13:47 [facility] (Rec: 06/25/22 14:30 [facility] [id number]) OP-PT Subjective Patient Comments Patient Comments Sees surgeon in one week. Continues to walk with FWW, maintaining 70% weight-bearing . Has progressed to 20 repetitions of every exercise, LE feeling pretty good, back is even feeling a little better. PT-OP-G Mobility & Gait Start: 05/22/22 08:12 Freq: Status: Active Protocol: Document 05/22/22 08:12 [facility] (Rec: 05/22/22 08:58 [facility] [id number]) OP Mobility Evaluation Bed Mobility Rolling indep, usually on side for sleep with pillow between legs or supine pillow under knees OP Gait Assessment Gait Gait Assistance Required: Standby Assistance Assistive Devices Assistive Device Front Wheeled Walker Gait Deviations General Gait Pattern Antalgic,Decreased Stride Length,Decreased Feet Clearance,Flexed Trunk Factors Limiting Gait Function Factors Limiting Gait Function Decreased Activity Tolerance, Decreased Strength Stair Climbing Evaluation Evaluation Level of Assist On Stairs Independent Technique/Endurance Stair Climbing Technique Step to Step PT-OP-J Posture/Palpation/Skin Start: 05/22/22 08:12 Freq: Status: Active Protocol: Document 05/22/22 08:12 [facility] (Rec: 05/23/22 08:46 [facility] [id number]) Skin Assessment Incisional Assessment Incision Appearance/Comments well healed multiple incisions right thigh, poor scar mobility with thickening in many areas. PT-OP-K Range of Motion Start: 05/22/22 08:12 Freq: Status: Active Protocol: Document 05/22/22 08:12 [facility] (Rec: 05/23/22 08:46 [facility] [id number]) Hip Goniometric Range of Motion Hip right Flexion w/Knee Flexed 90 Straight Leg Raise 55 Extension 0 Abduction 25 Internal Rotation 20 External Rotation 30 Hip ROM Limitations Hip ROM Limitations Soft Tissue Tightness PT-OP-M Strength Start: 05/22/22 08:12 Freq: Status: Active Protocol: Document 05/22/22 08:12 [facility] (Rec: 05/23/22 08:46 [facility] [id number]) Knee Strength Knee Manual Muscle Testing Right Comments no MMT due to recent surgery; appears less than anti-gravity strength Left Comments WFL; no MMT due to recent surgery PT-OP-Q Treatments Start: 05/22/22 08:12 Freq: Status: Active Protocol: Document 06/25/22 13:47 [facility] (Rec: 06/25/22 14:30 [facility] [id number]) Cardio Equipment Recumbent Stepper (Sci-Fit) Duration (Minutes) 10 Resistance 2 Seat Position 14 Gym Equipment Shuttle Recovery Bilateral Heel Raises Resistance 50# Shuttle Recovery Platform Stable Reps/Time 10x2 Unilateral Squats Resistance 50# Shuttle Recovery Platform Stable Reps/Time 10x2 Bilateral Squats Details cues for LE alignment Resistance 75# Shuttle Recovery Platform Stable Reps/Time 10x2 Gait Training Gait Activity parallel bars Level of Assistance VC Surface firm Distance/Duration 10 ft x 2 Treatment Focus max 70% WB Comments cued upright posture, gluteal activation, inc knee extension right. level Device Used 4WW Level of Assistance VC Surface firm Distance/Duration 60'x 2, 20'x1 Treatment Focus upright posture, max 70% WB, dec limp Comments mirror for visual feedback, dec compensation Manual Therapy Treatment Soft Tissue Mobilization piriformis, quads, glut med Mobilization Type Instrument Assisted,Myofascial Release,Strumming Intensity/Depth Moderate Body Position Sidelying surgical scars Body Location right anterior Mobilization Type Instrument Assisted,Myofascial Release,Strumming Intensity/Depth Moderate Body Position Sidelying Neuro Re-Education Treatment Balance Activities tiltboard Details A/P EO bal and wt shift foam stand Details EO, head turns, EC Equipment blue foam square Reps/Duration 3 min PT-OP-R Modalities Start: 05/22/22 08:12 Freq: Status: Active Protocol: Document 06/25/22 13:47 [facility] (Rec: 06/25/22 14:30 [facility] [id number]) Hot Pack/Cold Pack Treatment Cold Pack Location right hip Patient Position Sidelying Treatment Duration (minutes) 10 Patient Tolerance Good PT-OP-T Assessment and Plan Start: 05/22/22 08:12 Freq: Status: Active Protocol: Document 06/25/22 13:47 [facility] (Rec: 06/25/22 14:30 [facility] [id number]) Physical Therapy Assessment Goals Four Impairment lacking full knee extension right Short Term Goal (STG) Patient to be instructed in HEP for improving knee extension to support therapy activities STG Duration 06/13/22 Senior Living Goal (LTG) Achieve full knee extension actively for improved functional mobility LTG Duration 08/20/22 Three Impairment decreased scar mobility Short Term Goal (STG) Patient to be instructed in self massage of surgical scar to support PT tissue mobilization techniques STG Duration 06/13/22 Blank[employer] W[employer] Hel[employer] Goal (LTG) Improve scar mobility to WNL to allow full function of right LE LTG Duration 08/20/22 Two Impairment gait dysfunction Impairment antalgic gait, using FWW, step -to pattern on nstairs Senior Living Goal (LTG) Patient will be able to ambulate with least restrict device on all surfaces safely including with alternating pattern on stairs LTG Duration 08/20/22 One Impairment weakness Impairment right LE weakness Short Term Goal (STG) Patient to be instrsucted in HEP for purposes of LE strengthening STG Duration 06/27/22 Blanket Winder Helper Goal (LTG) Patient will be independent and compliant with HEP and demonstrate 5/5 muscle strength right hip Progress Towards Goals Progress Towards Goals Progressing Toward Goals Assessment Summary Assessment Patient with good compliance to HEP, balance improving. Continues to observe 70% WB precautions. Will see surgeon next week. Benefits from soft tissue mobilization to scars and lateral hip. Physical Therapy Plan Frequency and Duration Frequency of Treatment 2x/Week Duration of treatment (weeks) 12 Plan of Care Start Date 05/23/22 Plan of Care End Date 08/21/22 Therapeutic Interventions Therapeutic Interventions Gait Training,Home Exercise Program,Manual Therapy,Patient /Caregiver Education,Self-Care /Home Management,Soft Tissue Mobilization,Taping, Therapeutic Activities, Therapeutic Exercises Modalities Cold Pack/Ice Massage,Electric Stimulation,Hot Packs, Iontophoresis Next Visit Focus/Plan Next Note Type Treatment Note Next Visit Plan Continue gait training level and stairs, hip strengthening, soft tissue mobilization quads, IT band, piriformis, gluts, scar.
--- NOTE | 2022-06-28 11:16 | PT.OTN ---
Current Diagnoses Personal history of (healed) traumatic fracture (06/28/22) Physical Therapy Treatment Note PT-OP-A Visit Information Start: 05/22/22 08:12 Freq: Status: Active Protocol: Document 06/28/22 10:32 [facility] (Rec: 06/28/22 11:14 [facility] [id number]) Out-Patient Physical Therapy Visit Information Visit Information Visit Type Treatment Note Visit Start Time 10:32 Visit Stop Time 11:22 Total Visit Minutes 50 Visit Number 10 Evaluation Information Evaluation Date 05/22/22 Precautions Precautions Prior VO, pt can be 70% WBing, be careful. PT-OP-B Current Condition Start: 05/22/22 08:12 Freq: Status: Active Protocol: Document 05/30/22 08:13 [facility]AK (Rec: 05/30/22 09:01 [facility] [id number]) Current Condition History of Current Condition Onset Date 04/11/22 Current Complaints weakness, difficulty with gait, LE swelling. History of Current Condition GLF 04/11/22 followed by ORIF 04/13/22 due to proximal right femur fracture. After discharge from hospital went to [facility] rehab. Discharged home approx 3 weeks ago. At this time patient partial weight-bearing at least until sees Dr. Shi tomorrow, using FWW. Denies significant pain. Has ramp into house, not using stairs. Uses w/c at times due to difficulty with prolonged standing on left foot. Min N/T under feet. HEP: standing july, knee flex right, heel/ toe raise left, squat, sit to stand. Wears heel lift in left shoe. Prior Treatments and Tests ORIF PT-OP-C Subjective Start: 05/22/22 08:12 Freq: Status: Active Protocol: Document 06/28/22 10:32 [facility]AK (Rec: 06/28/22 11:14 [facility] [id number]) OP-PT Subjective Patient Comments Patient Comments BP high this am 179/75, had to get up several times in the night to urinate, ears ringing . Had recurrent UTI's previously, not for about 6 months. Everything aches; feels arthritis flare. Sees Dr. Shi tomorrow. PT-OP-G Mobility & Gait Start: 05/22/22 08:12 Freq: Status: Active Protocol: Document 05/22/22 08:12 [facility]AK (Rec: 05/22/22 08:58 [facility] [id number]) OP Mobility Evaluation Bed Mobility Rolling indep, usually on side for sleep with pillow between legs or supine pillow under knees OP Gait Assessment Gait Gait Assistance Required: Standby Assistance Assistive Devices Assistive Device Front Wheeled Walker Gait Deviations General Gait Pattern Antalgic,Decreased Stride Length,Decreased Feet Clearance,Flexed Trunk Factors Limiting Gait Function Factors Limiting Gait Function Decreased Activity Tolerance, Decreased Strength Stair Climbing Evaluation Evaluation Level of Assist On Stairs Independent Technique/Endurance Stair Climbing Technique Step to Step PT-OP-J Posture/Palpation/Skin Start: 05/22/22 08:12 Freq: Status: Active Protocol: Document 05/22/22 08:12 [facility] (Rec: 05/23/22 08:46 [facility] [id number]) Skin Assessment Incisional Assessment Incision Appearance/Comments well healed multiple incisions right thigh, poor scar mobility with thickening in many areas. PT-OP-K Range of Motion Start: 05/22/22 08:12 Freq: Status: Active Protocol: Document 05/22/22 08:12 [facility] (Rec: 05/23/22 08:46 [facility] [id number]) Hip Goniometric Range of Motion Hip right Flexion w/Knee Flexed 90 Straight Leg Raise 55 Extension 0 Abduction 25 Internal Rotation 20 External Rotation 30 Hip ROM Limitations Hip ROM Limitations Soft Tissue Tightness PT-OP-M Strength Start: 05/22/22 08:12 Freq: Status: Active Protocol: Document 05/22/22 08:12 [facility] (Rec: 05/23/22 08:46 [facility] [id number]) Knee Strength Knee Manual Muscle Testing Right Comments no MMT due to recent surgery; appears less than anti-gravity strength Left Comments WFL; no MMT due to recent surgery PT-OP-Q Treatments Start: 05/22/22 08:12 Freq: Status: Active Protocol: Document 06/28/22 10:32 [facility] (Rec: 06/28/22 11:14 [facility] [id number]) Cardio Equipment Recumbent Stepper (Sci-Fit) Duration (Minutes) 10 Resistance 2 Seat Position 15 Gym Equipment Shuttle Recovery Bilateral Heel Raises Resistance 50# Shuttle Recovery Platform Stable Reps/Time 10x2 Unilateral Squats Resistance 50# Shuttle Recovery Platform Stable Reps/Time 10x2 Bilateral Squats Details cues for LE alignment Resistance 75# Shuttle Recovery Platform Stable Reps/Time 10x2 Therapeutic Exercises Supine Exercises SLR Reps/Minutes 10x Sidelying Exercises hip abduction Side bilateral Reps/Minutes 10x clamshell Side right Reps/Minutes 15x Gait Training Gait Activity parallel bars Level of Assistance VC Surface firm Distance/Duration 10 ft x 2 Treatment Focus max 70% WB Comments cued upright posture, gluteal activation, inc knee extension right. level Device Used 4WW Level of Assistance VC Surface firm Distance/Duration 80' x 2, 20'x2 Treatment Focus upright posture, max 70% WB, dec limp Comments mirror for visual feedback, dec compensation Manual Therapy Treatment Soft Tissue Mobilization piriformis, quads, glut med Mobilization Type Instrument Assisted,Myofascial Release,Strumming Intensity/Depth Moderate Body Position Sidelying surgical scars Body Location right anterior Mobilization Type Instrument Assisted,Myofascial Release,Strumming Intensity/Depth Moderate Body Position Sidelying Neuro Re-Education Treatment Balance Activities tiltboard Details A/P EO bal and wt shift foam stand Details EO, head turns, EC Equipment blue foam square Reps/Duration 3 min Self-Care/Home Management Treatment Education Patient Education Home Exercise Program,Joint Protection,Posture,Safety PT-OP-R Modalities Start: 05/22/22 08:12 Freq: Status: Active Protocol: Document 06/28/22 10:32 [facility] (Rec: 06/28/22 11:14 [facility] [id number]) Hot Pack/Cold Pack Treatment Cold Pack Location right hip Patient Position Sidelying Treatment Duration (minutes) 10 Patient Tolerance Good PT-OP-T Assessment and Plan Start: 05/22/22 08:12 Freq: Status: Active Protocol: Document 06/28/22 10:32 [facility] (Rec: 06/28/22 11:14 [facility] [id number]) Physical Therapy Assessment Goals Four Impairment lacking full knee extension right Short Term Goal (STG) Patient to be instructed in HEP for improving knee extension to support therapy activities 06/25/22: goal met STG Duration goal met [employer] Goal (LTG) Achieve full knee extension actively for improved functional mobility LTG Duration 08/20/22 Three Impairment decreased scar mobility Short Term Goal (STG) Patient to be instructed in self massage of surgical scar to support PT tissue mobilization techniques 06/25/22: goal met STG Duration goal met [employer] Goal (LTG) Improve scar mobility to WNL to allow full function of right LE LTG Duration 08/20/22 Two Impairment gait dysfunction Impairment antalgic gait, using FWW, step -to pattern on nstairs [employer] Goal (LTG) Patient will be able to ambulate with least restrict device on all surfaces safely including with alternating pattern on stairs 06/25/22: good goal progress LTG Duration 08/20/22 One Impairment weakness Impairment right LE weakness Short Term Goal (STG) Patient to be instrsucted in HEP for purposes of LE strengthening 06/25/22: goal met, ongoing STG Duration goal met, ongoing [employer] Goal (LTG) Patient will be independent and compliant with HEP and demonstrate 5/5 muscle strength right hip LTG Duration 08/20/22 Progress Towards Goals Progress Towards Goals Progressing Toward Goals Assessment Summary Assessment Patient not feeling well physically, suspect UTI. She will contact doctor after PT. Awaiting approval to progress weight-bearing. Physical Therapy Plan Frequency and Duration Frequency of Treatment 2x/Week Duration of treatment (weeks) 12 Plan of Care Start Date 05/23/22 Plan of Care End Date 08/21/22 Therapeutic Interventions Therapeutic Interventions Gait Training,Home Exercise Program,Manual Therapy,Patient /Caregiver Education,Self-Care /Home Management,Soft Tissue Mobilization,Taping, Therapeutic Activities, Therapeutic Exercises Modalities Cold Pack/Ice Massage,Electric Stimulation,Hot Packs, Iontophoresis Next Visit Focus/Plan Next Note Type Treatment Note Next Visit Plan Continue gait training level and stairs, hip strengthening, soft tissue mobilization quads, IT band, piriformis, gluts, scar. Begin gait training with canes or trekking poles if full WB allowed by physician.
--- NOTE | 2022-07-02 13:48 | PT.OTN ---
Current Diagnoses Personal history of (healed) traumatic fracture (07/02/22) Physical Therapy Treatment Note PT-OP-A Visit Information Start: 05/22/22 08:12 Freq: Status: Active Protocol: Document 07/02/22 13:11 [facility] (Rec: 07/02/22 13:47 [facility] [id number]) Out-Patient Physical Therapy Visit Information Visit Information Visit Type Treatment Note Visit Start Time 13:01 Visit Stop Time 13:51 Total Visit Minutes 50 Visit Number 11 Evaluation Information Evaluation Date 05/22/22 Precautions Precautions Prior VO, pt can be 70% WBing, be careful. PT-OP-B Current Condition Start: 05/22/22 08:12 Freq: Status: Active Protocol: Document 05/30/22 08:13 [facility]AK (Rec: 05/30/22 09:01 [facility] [id number]) Current Condition History of Current Condition Onset Date 04/11/22 Current Complaints weakness, difficulty with gait, LE swelling. History of Current Condition GLF 04/11/22 followed by ORIF 04/13/22 due to proximal right femur fracture. After discharge from hospital went to [facility] rehab. Discharged home approx 3 weeks ago. At this time patient partial weight-bearing at least until sees Dr. Shi tomorrow, using FWW. Denies significant pain. Has ramp into house, not using stairs. Uses w/c at times due to difficulty with prolonged standing on left foot. Min N/T under feet. HEP: standing march, knee flex right, heel/ toe raise left, squat, sit to stand. Wears heel lift in left shoe. Prior Treatments and Tests ORIF PT-OP-C Subjective Start: 05/22/22 08:12 Freq: Status: Active Protocol: Document 07/02/22 13:11 [facility] (Rec: 07/02/22 13:47 [facility] [id number]) OP-PT Subjective Patient Comments Patient Comments Saw Dr. Shi ok to be full weight-bearing, transition to cane. Next appointment in 2 months. Patient Reported Progress Improving PT-OP-G Mobility & Gait Start: 05/22/22 08:12 Freq: Status: Active Protocol: Document 05/22/22 08:12 [facility]AK (Rec: 05/22/22 08:58 [facility] [id number]) OP Mobility Evaluation Bed Mobility Rolling indep, usually on side for sleep with pillow between legs or supine pillow under knees OP Gait Assessment Gait Gait Assistance Required: Standby Assistance Assistive Devices Assistive Device Front Wheeled Walker Gait Deviations General Gait Pattern Antalgic,Decreased Stride Length,Decreased Feet Clearance,Flexed Trunk Factors Limiting Gait Function Factors Limiting Gait Function Decreased Activity Tolerance, Decreased Strength Stair Climbing Evaluation Evaluation Level of Assist On Stairs Independent Technique/Endurance Stair Climbing Technique Step to Step PT-OP-J Posture/Palpation/Skin Start: 05/22/22 08:12 Freq: Status: Active Protocol: Document 05/22/22 08:12 [facility] (Rec: 05/23/22 08:46 [facility] [id number]) Skin Assessment Incisional Assessment Incision Appearance/Comments well healed multiple incisions right thigh, poor scar mobility with thickening in many areas. PT-OP-K Range of Motion Start: 05/22/22 08:12 Freq: Status: Active Protocol: Document 05/22/22 08:12 [facility] (Rec: 05/23/22 08:46 [facility] [id number]) Hip Goniometric Range of Motion Hip right Flexion w/Knee Flexed 90 Straight Leg Raise 55 Extension 0 Abduction 25 Internal Rotation 20 External Rotation 30 Hip ROM Limitations Hip ROM Limitations Soft Tissue Tightness PT-OP-M Strength Start: 05/22/22 08:12 Freq: Status: Active Protocol: Document 05/22/22 08:12 [facility] (Rec: 05/23/22 08:46 [facility] [id number]) Knee Strength Knee Manual Muscle Testing Right Comments no MMT due to recent surgery; appears less than anti-gravity strength Left Comments WFL; no MMT due to recent surgery PT-OP-Q Treatments Start: 05/22/22 08:12 Freq: Status: Active Protocol: Document 07/02/22 13:11 [facility] (Rec: 07/02/22 13:47 [facility] [id number]) Cardio Equipment Recumbent Stepper (Sci-Fit) Duration (Minutes) 10 Resistance 2 Seat Position 15 Gym Equipment Shuttle Recovery Bilateral Heel Raises Resistance 50# Shuttle Recovery Platform Stable Reps/Time 10x2 Unilateral Squats Resistance 50# Shuttle Recovery Platform Unstable Reps/Time 10x2 Bilateral Squats Details cues for LE alignment Resistance 75# Shuttle Recovery Platform Unstable Reps/Time 10x2 Therapeutic Exercises Supine Exercises SLR Reps/Minutes 10x Sidelying Exercises hip abduction Side bilateral Reps/Minutes 10x clamshell Side right Reps/Minutes 15x Standing Exercises backward walk Reps/Minutes 10 ft x 2 sidestepping Reps/Minutes 10 ft x 2 Gait Training Gait Activity parallel bars Level of Assistance VC Surface firm Distance/Duration 10 ft x 2 Treatment Focus 100% WB Comments cued upright posture, gluteal activation, inc knee extension right, 1 hand support simulate cane level Device Used cane, 2 canes Level of Assistance VC Surface firm Distance/Duration 40' x 3 Treatment Focus 100% WB Comments mirror for visual feedback, dec compensation Manual Therapy Treatment Soft Tissue Mobilization piriformis, quads, glut med Mobilization Type Instrument Assisted,Myofascial Release,Strumming Intensity/Depth Moderate Body Position Sidelying surgical scars Body Location right anterior Mobilization Type Instrument Assisted,Myofascial Release,Strumming Intensity/Depth Moderate Body Position Sidelying Neuro Re-Education Treatment Balance Activities tiltboard Details A/P, side EO bal and wt shift foam stand Details EO, head turns, EC Equipment blue foam square Reps/Duration 3 min Self-Care/Home Management Treatment Education Patient Education Home Exercise Program,Joint Protection,Posture,Safety PT-OP-R Modalities Start: 05/22/22 08:12 Freq: Status: Active Protocol: Document 07/02/22 13:11 [facility] (Rec: 07/02/22 13:47 [facility] [id number]) Hot Pack/Cold Pack Treatment Cold Pack Location right hip Patient Position Sidelying Treatment Duration (minutes) 10 Patient Tolerance Good PT-OP-T Assessment and Plan Start: 05/22/22 08:12 Freq: Status: Active Protocol: Document 07/02/22 13:11 [facility] (Rec: 07/02/22 13:47 [facility] [id number]) Physical Therapy Assessment Goals Four Impairment lacking full knee extension right Short Term Goal (STG) Patient to be instructed in HEP for improving knee extension to support therapy activities 06/25/22: goal met STG Duration goal met [employer] Goal (LTG) Achieve full knee extension actively for improved functional mobility LTG Duration 08/20/22 Three Impairment decreased scar mobility Short Term Goal (STG) Patient to be instructed in self massage of surgical scar to support PT tissue mobilization techniques 06/25/22: goal met STG Duration goal met [facility] Goal (LTG) Improve scar mobility to WNL to allow full function of right LE LTG Duration 08/20/22 Two Impairment gait dysfunction Impairment antalgic gait, using FWW, step -to pattern on nstairs [facility] Goal (LTG) Patient will be able to ambulate with least restrict device on all surfaces safely including with alternating pattern on stairs 06/25/22: good goal progress LTG Duration 08/20/22 One Impairment weakness Impairment right LE weakness Short Term Goal (STG) Patient to be instrsucted in HEP for purposes of LE strengthening 06/25/22: goal met, ongoing STG Duration goal met, ongoing [facility] Goal (LTG) Patient will be independent and compliant with HEP and demonstrate 5/5 muscle strength right hip LTG Duration 08/20/22 Progress Towards Goals Progress Towards Goals Progressing Toward Goals Assessment Summary Assessment Trendelenberg gait indicating glut med weakness. Able to now ascend/descend 4 stair with alternating pattern. Instruction for gradual weaning from walker, listen to body and increase support if hip pain inc. Patient demonstrates good understanding Physical Therapy Plan Frequency and Duration Frequency of Treatment 2x/Week Duration of treatment (weeks) 12 Plan of Care Start Date 05/23/22 Plan of Care End Date 08/21/22 Therapeutic Interventions Therapeutic Interventions Gait Training,Home Exercise Program,Manual Therapy,Patient /Caregiver Education,Self-Care /Home Management,Soft Tissue Mobilization,Taping, Therapeutic Activities, Therapeutic Exercises Modalities Cold Pack/Ice Massage,Electric Stimulation,Hot Packs, Iontophoresis Next Visit Focus/Plan Next Note Type Treatment Note Next Visit Plan Gait training with trekking poles, continue strengthening especially hip abductors.
--- NOTE | 2022-07-04 13:45 | PT.OTN ---
Current Diagnoses Personal history of (healed) traumatic fracture (07/04/22) Physical Therapy Treatment Note PT-OP-A Visit Information Start: 05/22/22 08:12 Freq: Status: Active Protocol: Document 07/04/22 13:05 [facility] (Rec: 07/04/22 13:45 [facility] [id number]) Out-Patient Physical Therapy Visit Information Visit Information Visit Type Treatment Note Visit Start Time 13:01 Visit Stop Time 13:51 Total Visit Minutes 50 Visit Number 11 Evaluation Information Evaluation Date 05/22/22 Precautions Precautions WBAT PT-OP-B Current Condition Start: 05/22/22 08:12 Freq: Status: Active Protocol: Document 05/30/22 08:13 [facility] (Rec: 05/30/22 09:01 [facility] [id number]) Current Condition History of Current Condition Onset Date 04/11/22 Current Complaints weakness, difficulty with gait, LE swelling. History of Current Condition GLF 04/11/22 followed by ORIF 04/13/22 due to proximal right femur fracture. After discharge from hospital went to [facility] rehab. Discharged home approx 3 weeks ago. At this time patient partial weight-bearing at least until sees Dr. Shi tomorrow, using FWW. Denies significant pain. Has ramp into house, not using stairs. Uses w/c at times due to difficulty with prolonged standing on left foot. Min N/T under feet. HEP: standing march, knee flex right, heel/ toe raise left, squat, sit to stand. Wears heel lift in left shoe. Prior Treatments and Tests ORIF PT-OP-C Subjective Start: 05/22/22 08:12 Freq: Status: Active Protocol: Document 07/04/22 13:05 [facility] (Rec: 07/04/22 13:45 [facility] [id number]) OP-PT Subjective Patient Comments Patient Comments Using cane some at home. PT-OP-G Mobility & Gait Start: 05/22/22 08:12 Freq: Status: Active Protocol: Document 05/22/22 08:12 [facility] (Rec: 05/22/22 08:58 [facility] [id number]) OP Mobility Evaluation Bed Mobility Rolling indep, usually on side for sleep with pillow between legs or supine pillow under knees OP Gait Assessment Gait Gait Assistance Required: Standby Assistance Assistive Devices Assistive Device Front Wheeled Walker Gait Deviations General Gait Pattern Antalgic,Decreased Stride Length,Decreased Feet Clearance,Flexed Trunk Factors Limiting Gait Function Factors Limiting Gait Function Decreased Activity Tolerance, Decreased Strength Stair Climbing Evaluation Evaluation Level of Assist On Stairs Independent Technique/Endurance Stair Climbing Technique Step to Step PT-OP-J Posture/Palpation/Skin Start: 05/22/22 08:12 Freq: Status: Active Protocol: Document 05/22/22 08:12 [facility] (Rec: 05/23/22 08:46 [facility] [id number]) Skin Assessment Incisional Assessment Incision Appearance/Comments well healed multiple incisions right thigh, poor scar mobility with thickening in many areas. PT-OP-K Range of Motion Start: 05/22/22 08:12 Freq: Status: Active Protocol: Document 05/22/22 08:12 [facility] (Rec: 05/23/22 08:46 [facility] [id number]) Hip Goniometric Range of Motion Hip right Flexion w/Knee Flexed 90 Straight Leg Raise 55 Extension 0 Abduction 25 Internal Rotation 20 External Rotation 30 Hip ROM Limitations Hip ROM Limitations Soft Tissue Tightness PT-OP-M Strength Start: 05/22/22 08:12 Freq: Status: Active Protocol: Document 05/22/22 08:12 [facility] (Rec: 05/23/22 08:46 [facility] [id number]) Knee Strength Knee Manual Muscle Testing Right Comments no MMT due to recent surgery; appears less than anti-gravity strength Left Comments WFL; no MMT due to recent surgery PT-OP-Q Treatments Start: 05/22/22 08:12 Freq: Status: Active Protocol: Document 07/04/22 13:05 [facility] (Rec: 07/04/22 13:45 [facility] [id number]) Cardio Equipment Recumbent Stepper (Sci-Fit) Duration (Minutes) 7 Resistance 2.2 Seat Position 15 Treadmill Duration (Minutes) 5 Speed 0.7-0 Other cues for upright posture, gluteal activation Gym Equipment Shuttle Recovery Bilateral Heel Raises Resistance 50# Shuttle Recovery Platform Stable Reps/Time 10x2 Unilateral Squats Resistance 50# Shuttle Recovery Platform Unstable Reps/Time 10x2 Bilateral Squats Details cues for LE alignment Resistance 75# Shuttle Recovery Platform Unstable Reps/Time 10x2 Shuttle Balance chains red Details balance and wt shift Reps/Duration 5 min Comments mirror for visual feedback. Good trunk control Therapeutic Exercises Standing Exercises monster walks Standing Exercise Name fwd/bck Equipment Used L1 TB Reps/Minutes 10ft x 4 sidestepping Resistance L1 TB Reps/Minutes 10 ft x 4 Gait Training Gait Activity level Device Used [employer] Level of Assistance VC Surface firm Distance/Duration 75'x2 Treatment Focus 100% WB Comments mirror for visual feedback, dec compensation Manual Therapy Treatment Soft Tissue Mobilization piriformis, quads, glut med Mobilization Type Instrument Assisted,Myofascial Release,Strumming Intensity/Depth Moderate Body Position Sidelying surgical scars Body Location right anterior Mobilization Type Instrument Assisted,Myofascial Release,Strumming Intensity/Depth Moderate Body Position Sidelying Self-Care/Home Management Treatment Education Patient Education Home Exercise Program,Joint Protection,Posture,Safety PT-OP-R Modalities Start: 05/22/22 08:12 Freq: Status: Active Protocol: Document 07/04/22 13:05 [facility] (Rec: 07/04/22 13:45 [facility] [id number]) Hot Pack/Cold Pack Treatment Cold Pack Location right hip Patient Position Sidelying Treatment Duration (minutes) 10 Patient Tolerance Good PT-OP-T Assessment and Plan Start: 05/22/22 08:12 Freq: Status: Active Protocol: Document 07/04/22 13:05 [facility] (Rec: 07/04/22 13:45 [facility] [id number]) Physical Therapy Assessment Goals Four Impairment lacking full knee extension right Short Term Goal (STG) Patient to be instructed in HEP for improving knee extension to support therapy activities 06/25/22: goal met STG Duration goal met [employer] Goal (LTG) Achieve full knee extension actively for improved functional mobility LTG Duration 08/20/22 Three Impairment decreased scar mobility Short Term Goal (STG) Patient to be instructed in self massage of surgical scar to support PT tissue mobilization techniques 06/25/22: goal met STG Duration goal met [employer] Goal (LTG) Improve scar mobility to WNL to allow full function of right LE LTG Duration 08/20/22 Two Impairment gait dysfunction Impairment antalgic gait, using FWW, step -to pattern on nstairs Assisted Goal (LTG) Patient will be able to ambulate with least restrict device on all surfaces safely including with alternating pattern on stairs 06/25/22: good goal progress LTG Duration 08/20/22 One Impairment weakness Impairment right LE weakness Short Term Goal (STG) Patient to be instrsucted in HEP for purposes of LE strengthening 06/25/22: goal met, ongoing STG Duration goal met, ongoing Assisted Goal (LTG) Patient will be independent and compliant with HEP and demonstrate 5/5 muscle strength right hip LTG Duration 08/20/22 Progress Towards Goals Progress Towards Goals Progressing Toward Goals Assessment Summary Assessment Improving gait Physical Therapy Plan Frequency and Duration Frequency of Treatment 2x/Week Duration of treatment (weeks) 12 Plan of Care Start Date 05/23/22 Plan of Care End Date 08/21/22 Therapeutic Interventions Therapeutic Interventions Gait Training,Home Exercise Program,Manual Therapy,Patient /Caregiver Education,Self-Care /Home Management,Soft Tissue Mobilization,Taping, Therapeutic Activities, Therapeutic Exercises Modalities Cold Pack/Ice Massage,Electric Stimulation,Hot Packs, Iontophoresis Next Visit Focus/Plan Next Note Type Treatment Note Next Visit Plan Continue gait training progression, balance, hip strengthening. Increase weight for double leg on shuttle leg press.
--- NOTE | 2022-07-10 14:30 | PT.OTN ---
Current Diagnoses Personal history of (healed) traumatic fracture (07/10/22) Physical Therapy Treatment Note PT-OP-A Visit Information Start: 05/22/22 08:12 Freq: Status: Active Protocol: Document 07/10/22 09:44 [facility] (Rec: 07/10/22 10:32 [facility] [id number]) Out-Patient Physical Therapy Visit Information Visit Information Visit Type Treatment Note Visit Start Time 09:46 Visit Stop Time 10:40 Total Visit Minutes 54 Visit Number 12 Evaluation Information Evaluation Date 05/22/22 Precautions Precautions WBAT PT-OP-B Current Condition Start: 05/22/22 08:12 Freq: Status: Active Protocol: Document 05/30/22 08:13 [facility] (Rec: 05/30/22 09:01 [facility] [id number]) Current Condition History of Current Condition Onset Date 04/11/22 Current Complaints weakness, difficulty with gait, LE swelling. History of Current Condition GLF 04/11/22 followed by ORIF 04/13/22 due to proximal right femur fracture. After discharge from hospital went to [facility] rehab. Discharged home approx 3 weeks ago. At this time patient partial weight-bearing at least until sees Dr. Shi tomorrow, using FWW. Denies significant pain. Has ramp into house, not using stairs. Uses w/c at times due to difficulty with prolonged standing on left foot. Min N/T under feet. HEP: standing march, knee flex right, heel/ toe raise left, squat, sit to stand. Wears heel lift in left shoe. Prior Treatments and Tests ORIF PT-OP-C Subjective Start: 05/22/22 08:12 Freq: Status: Active Protocol: Document 07/10/22 09:44 [facility] (Rec: 07/10/22 10:32 [facility] [id number]) OP-PT Subjective Patient Comments Patient Comments Back is hurting because doing something funny with my walking PT-OP-G Mobility & Gait Start: 05/22/22 08:12 Freq: Status: Active Protocol: Document 05/22/22 08:12 [facility] (Rec: 05/22/22 08:58 [facility] [id number]) OP Mobility Evaluation Bed Mobility Rolling indep, usually on side for sleep with pillow between legs or supine pillow under knees OP Gait Assessment Gait Gait Assistance Required: Standby Assistance Assistive Devices Assistive Device Front Wheeled Walker Gait Deviations General Gait Pattern Antalgic,Decreased Stride Length,Decreased Feet Clearance,Flexed Trunk Factors Limiting Gait Function Factors Limiting Gait Function Decreased Activity Tolerance, Decreased Strength Stair Climbing Evaluation Evaluation Level of Assist On Stairs Independent Technique/Endurance Stair Climbing Technique Step to Step PT-OP-J Posture/Palpation/Skin Start: 05/22/22 08:12 Freq: Status: Active Protocol: Document 05/22/22 08:12 [facility] (Rec: 05/23/22 08:46 [facility] [id number]) Skin Assessment Incisional Assessment Incision Appearance/Comments well healed multiple incisions right thigh, poor scar mobility with thickening in many areas. PT-OP-K Range of Motion Start: 05/22/22 08:12 Freq: Status: Active Protocol: Document 05/22/22 08:12 [facility] (Rec: 05/23/22 08:46 [facility] [id number]) Hip Goniometric Range of Motion Hip right Flexion w/Knee Flexed 90 Straight Leg Raise 55 Extension 0 Abduction 25 Internal Rotation 20 External Rotation 30 Hip ROM Limitations Hip ROM Limitations Soft Tissue Tightness PT-OP-M Strength Start: 05/22/22 08:12 Freq: Status: Active Protocol: Document 05/22/22 08:12 [facility] (Rec: 05/23/22 08:46 [facility] [id number]) Knee Strength Knee Manual Muscle Testing Right Comments no MMT due to recent surgery; appears less than anti-gravity strength Left Comments WFL; no MMT due to recent surgery PT-OP-Q Treatments Start: 05/22/22 08:12 Freq: Status: Active Protocol: Document 07/10/22 09:44 [facility] (Rec: 07/10/22 10:32 [facility] [id number]) Gym Equipment Shuttle Recovery Bilateral Heel Raises Resistance 50# Shuttle Recovery Platform Stable Reps/Time 10x2 Unilateral Squats Resistance 50# Shuttle Recovery Platform Unstable Reps/Time 10x2 Bilateral Squats Details cues for LE alignment Resistance 87# Shuttle Recovery Platform Unstable Reps/Time 10x2 Shuttle Balance chains red Details balance and wt shift Reps/Duration 5 min Comments mirror for visual feedback. Good trunk control Therapeutic Exercises Supine Exercises quad set Equipment Used towel roll Reps/Minutes 10x Standing Exercises glut set Reps/Minutes 10x5 monster walks Standing Exercise Name fwd/bck Equipment Used L1 TB Reps/Minutes 10ft x 4 sidestepping Resistance L1 TB Reps/Minutes 10 ft x 8 squat Equipment Used mirror, parallel bars Reps/Minutes 10x Comments 100% WB; cues for 50/50 b/t LE 's Gait Training Gait Activity stairs Description Gait with meño railing & with 1 railing/SPC Device Used railing, SPC Level of Assistance v cuing for gait mechanics Distance/Duration 4 meño rails Treatment Focus full weight shift, gluteal activation Comments safety, sequencing, posture parallel bars Level of Assistance VC Surface firm Distance/Duration 10 ft x 2 Treatment Focus 100% WB Comments cued upright posture, gluteal activation, inc knee extension right, 1 hand support simulate cane level Device Used cane x 1 and x2 Level of Assistance VC Surface firm Distance/Duration 75'x2 Treatment Focus 100% WB Comments mirror for visual feedback, dec compensation Manual Therapy Treatment Other Other Manual Treatments leg length checked, noted equal after work on inc right knee ext due to contracture after so much time dec WB Self-Care/Home Management Treatment Education Other Education gait mechanics with use of verbal and visual cues PT-OP-R Modalities Start: 05/22/22 08:12 Freq: Status: Active Protocol: Document 07/04/22 13:05 [facility] (Rec: 07/04/22 13:45 [facility] [id number]) Hot Pack/Cold Pack Treatment Cold Pack Location right hip Patient Position Sidelying Treatment Duration (minutes) 10 Patient Tolerance Good PT-OP-T Assessment and Plan Start: 05/22/22 08:12 Freq: Status: Active Protocol: Document 07/10/22 09:44 [facility] (Rec: 07/10/22 10:32 [facility] [id number]) Physical Therapy Assessment Goals Four Impairment lacking full knee extension right Short Term Goal (STG) Patient to be instructed in HEP for improving knee extension to support therapy activities 06/25/22: goal met STG Duration goal met [facility] Goal (LTG) Achieve full knee extension actively for improved functional mobility LTG Duration 08/20/22 Three Impairment decreased scar mobility Short Term Goal (STG) Patient to be instructed in self massage of surgical scar to support PT tissue mobilization techniques 06/25/22: goal met STG Duration goal met [facility] Goal (LTG) Improve scar mobility to WNL to allow full function of right LE LTG Duration 08/20/22 Two Impairment gait dysfunction Impairment antalgic gait, using FWW, step -to pattern on nstairs Ca[employer] Goal (LTG) Patient will be able to ambulate with least restrict device on all surfaces safely including with alternating pattern on stairs 06/25/22: good goal progress LTG Duration 08/20/22 One Impairment weakness Impairment right LE weakness Short Term Goal (STG) Patient to be instrsucted in HEP for purposes of LE strengthening 06/25/22: goal met, ongoing STG Duration goal met, ongoing [employer] Goal (LTG) Patient will be independent and compliant with HEP and demonstrate 5/5 muscle strength right hip LTG Duration 08/20/22 Assessment Summary Assessment Use of mirror for visual feedback with gait to decrease compensation helpful today. Able to do alternating LE's on stairs on 4 stairs but with lack of full weight shift to right LE. Noting lack of full knee extension right after so much time spent with dec WB right LE, improved with quad set with towel roll for stretching. Physical Therapy Plan Frequency and Duration Frequency of Treatment 2x/Week Duration of treatment (weeks) 12 Plan of Care Start Date 05/23/22 Plan of Care End Date 08/21/22 Therapeutic Interventions Therapeutic Interventions Gait Training,Home Exercise Program,Manual Therapy,Patient /Caregiver Education,Self-Care /Home Management,Soft Tissue Mobilization,Taping, Therapeutic Activities, Therapeutic Exercises Modalities Cold Pack/Ice Massage,Electric Stimulation,Hot Packs, Iontophoresis Next Visit Focus/Plan Next Note Type Treatment Note Next Visit Plan Continue gait training progression, balance, hip strengthening. Use mirror for visual feedback for alignment, weight shift, dec compensation
--- NOTE | 2022-07-19 17:26 | PT.OTN ---
Current Diagnoses Personal history of (healed) traumatic fracture (07/19/22) Physical Therapy Treatment Note PT-OP-A Visit Information Start: 05/22/22 08:12 Freq: Status: Active Protocol: Document 07/19/22 09:04 [facility] (Rec: 07/19/22 09:48 [facility] [id number]) Out-Patient Physical Therapy Visit Information Visit Information Visit Type Treatment Note Visit Start Time 09:04 Visit Stop Time 09:59 Total Visit Minutes 55 Visit Number 13 Evaluation Information Evaluation Date 05/22/22 Precautions Precautions WBAT PT-OP-B Current Condition Start: 05/22/22 08:12 Freq: Status: Active Protocol: Document 05/30/22 08:13 [facility] (Rec: 05/30/22 09:01 [facility] [id number]) Current Condition History of Current Condition Onset Date 04/11/22 Current Complaints weakness, difficulty with gait, LE swelling. History of Current Condition GLF 04/11/22 followed by ORIF 04/13/22 due to proximal right femur fracture. After discharge from hospital went to [facility] rehab. Discharged home approx 3 weeks ago. At this time patient partial weight-bearing at least until sees Dr. Shi tomorrow, using FWW. Denies significant pain. Has ramp into house, not using stairs. Uses w/c at times due to difficulty with prolonged standing on left foot. Min N/T under feet. HEP: standing july, knee flex right, heel/ toe raise left, squat, sit to stand. Wears heel lift in left shoe. Prior Treatments and Tests ORIF PT-OP-C Subjective Start: 05/22/22 08:12 Freq: Status: Active Protocol: Document 07/19/22 09:04 [facility] (Rec: 07/19/22 09:48 [facility] [id number]) OP-PT Subjective Patient Comments Patient Comments Had thyroidectomy, sent out for biopsy, no results yet. Now on thyroid medication. Throat very irritated, voice hoarse, hasn't been able to do much hip exercises. Not allowed to do any bridging or lift any more than 10#. Back to doctor on Saturday. PT-OP-G Mobility & Gait Start: 05/22/22 08:12 Freq: Status: Active Protocol: Document 05/22/22 08:12 [facility] (Rec: 05/22/22 08:58 [facility] [id number]) OP Mobility Evaluation Bed Mobility Rolling indep, usually on side for sleep with pillow between legs or supine pillow under knees OP Gait Assessment Gait Gait Assistance Required: Standby Assistance Assistive Devices Assistive Device Front Wheeled Walker Gait Deviations General Gait Pattern Antalgic,Decreased Stride Length,Decreased Feet Clearance,Flexed Trunk Factors Limiting Gait Function Factors Limiting Gait Function Decreased Activity Tolerance, Decreased Strength Stair Climbing Evaluation Evaluation Level of Assist On Stairs Independent Technique/Endurance Stair Climbing Technique Step to Step PT-OP-J Posture/Palpation/Skin Start: 05/22/22 08:12 Freq: Status: Active Protocol: Document 05/22/22 08:12 [facility] (Rec: 05/23/22 08:46 [facility] [id number]) Skin Assessment Incisional Assessment Incision Appearance/Comments well healed multiple incisions right thigh, poor scar mobility with thickening in many areas. PT-OP-K Range of Motion Start: 05/22/22 08:12 Freq: Status: Active Protocol: Document 05/22/22 08:12 [facility] (Rec: 05/23/22 08:46 [facility] [id number]) Hip Goniometric Range of Motion Hip right Flexion w/Knee Flexed 90 Straight Leg Raise 55 Extension 0 Abduction 25 Internal Rotation 20 External Rotation 30 Hip ROM Limitations Hip ROM Limitations Soft Tissue Tightness PT-OP-M Strength Start: 05/22/22 08:12 Freq: Status: Active Protocol: Document 05/22/22 08:12 [facility] (Rec: 05/23/22 08:46 [facility] [id number]) Knee Strength Knee Manual Muscle Testing Right Comments no MMT due to recent surgery; appears less than anti-gravity strength Left Comments WFL; no MMT due to recent surgery PT-OP-Q Treatments Start: 05/22/22 08:12 Freq: Status: Active Protocol: Document 07/19/22 09:04 [facility] (Rec: 07/19/22 09:48 [facility] [id number]) Cardio Equipment Recumbent Stepper (Sci-Fit) Duration (Minutes) 8 Resistance 2.0 Seat Position 15 Treadmill Duration (Minutes) 5 Speed 1.5 Incline 0 Other cues for upright posture, gluteal activation, dec UE support Therapeutic Exercises Standing Exercises standing calf and hip flexor stretch Reps/Minutes 2x30 glut set Reps/Minutes 10x5 meño 5x 5 unil Gait Training Gait Activity level Device Used canes x1 and x 2 Level of Assistance VC Surface firm Distance/Duration 100ft total Treatment Focus 100% WB Comments mirror for visual feedback, dec compensation Manual Therapy Treatment Soft Tissue Mobilization piriformis, quads, glut med Mobilization Type Instrument Assisted,Myofascial Release,Strumming surgical scars Mobilization Type Instrument Assisted,Myofascial Release,Strumming Intensity/Depth Moderate Body Position Hooklying Self-Care/Home Management Treatment Education Other Education gait mechanics with use of verbal and visual cues PT-OP-R Modalities Start: 05/22/22 08:12 Freq: Status: Active Protocol: Document 07/19/22 09:04 [facility] (Rec: 07/19/22 17:26 [facility] [id number]) Hot Pack/Cold Pack Treatment Hot Pack Location left hip to knee Patient Position Sidelying PT-OP-T Assessment and Plan Start: 05/22/22 08:12 Freq: Status: Active Protocol: Document 07/19/22 09:04 [facility] (Rec: 07/19/22 09:48 [facility] [id number]) Physical Therapy Assessment Goals Four Impairment lacking full knee extension right Short Term Goal (STG) Patient to be instructed in HEP for improving knee extension to support therapy activities 06/25/22: goal met STG Duration goal met [facility] Goal (LTG) Achieve full knee extension actively for improved functional mobility LTG Duration 08/20/22 Three Impairment decreased scar mobility Short Term Goal (STG) Patient to be instructed in self massage of surgical scar to support PT tissue mobilization techniques 06/25/22: goal met STG Duration goal met [employer] Rock N[employer]er Goal (LTG) Improve scar mobility to WNL to allow full function of right LE LTG Duration 08/20/22 Two Impairment gait dysfunction Impairment antalgic gait, using FWW, step -to pattern on nstairs [facility] Goal (LTG) Patient will be able to ambulate with least restrict device on all surfaces safely including with alternating pattern on stairs 06/25/22: good goal progress LTG Duration 08/20/22 One Impairment weakness Impairment right LE weakness Short Term Goal (STG) Patient to be instrsucted in HEP for purposes of LE strengthening 06/25/22: goal met, ongoing STG Duration goal met, ongoing [employer] N[employer]er Goal (LTG) Patient will be independent and compliant with HEP and demonstrate 5/5 muscle strength right hip LTG Duration 08/20/22 Assessment Summary Assessment Use of mirror for visual feedback continues to benefit patient and use of 2 canes improves symmetry. Habit of excess weight-bearing left LE in standing with right knee flex discussed which is evident with gait as well; patient continues to work on this though tolerance for ex past week limited due to thyroid surgery, poor reaction to anesthetic. Physical Therapy Plan Frequency and Duration Frequency of Treatment 2x/Week Duration of treatment (weeks) 12 Plan of Care Start Date 05/23/22 Plan of Care End Date 08/21/22 Therapeutic Interventions Therapeutic Interventions Gait Training,Home Exercise Program,Manual Therapy,Patient /Caregiver Education,Self-Care /Home Management,Soft Tissue Mobilization,Taping, Therapeutic Activities, Therapeutic Exercises Modalities Cold Pack/Ice Massage,Electric Stimulation,Hot Packs, Iontophoresis Next Visit Focus/Plan Next Note Type Treatment Note Next Visit Plan Continue rehab or right s/p ORIF with functional retraining, emphasis on gait and balance, functional strengthening.
--- NOTE | 2022-08-13 09:03 | PT.OTN ---
Current Diagnoses Personal history of (healed) traumatic fracture (08/13/22) Physical Therapy Treatment Note PT-OP-A Visit Information Start: 05/22/22 08:12 Freq: Status: Active Protocol: Document 08/13/22 08:15 [facility] (Rec: 08/13/22 09:02 [facility] [id number]) Out-Patient Physical Therapy Visit Information Visit Information Visit Type Treatment Note Visit Start Time 08:15 Visit Stop Time 09:00 Total Visit Minutes 45 Visit Number 14 Evaluation Information Evaluation Date 05/22/22 Precautions Precautions WBAT PT-OP-B Current Condition Start: 05/22/22 08:12 Freq: Status: Active Protocol: Document 05/30/22 08:13 [facility] (Rec: 05/30/22 09:01 [facility] [id number]) Current Condition History of Current Condition Onset Date 04/11/22 Current Complaints weakness, difficulty with gait, LE swelling. History of Current Condition GLF 04/11/22 followed by ORIF 04/13/22 due to proximal right femur fracture. After discharge from hospital went to [facility] rehab. Discharged home approx 3 weeks ago. At this time patient partial weight-bearing at least until sees Dr. Shi tomorrow, using FWW. Denies significant pain. Has ramp into house, not using stairs. Uses w/c at times due to difficulty with prolonged standing on left foot. Min N/T under feet. HEP: standing july, knee flex right, heel/ toe raise left, squat, sit to stand. Wears heel lift in left shoe. Prior Treatments and Tests ORIF PT-OP-C Subjective Start: 05/22/22 08:12 Freq: Status: Active Protocol: Document 08/13/22 08:15 [facility] (Rec: 08/13/22 09:02 [facility] [id number]) OP-PT Subjective Patient Comments Patient Comments Continues compliance to HEP, feels improving. Hoarse voice persists with poor scar mobility in neck; may seek PT for neck. Using cane inside and outside, trying not to limp but needs support of cane at this time. Not doing sidelying leg lift yet. Went to pool 2x since last seen in PT. PT-OP-G Mobility & Gait Start: 05/22/22 08:12 Freq: Status: Active Protocol: Document 05/22/22 08:12 [facility] (Rec: 05/22/22 08:58 [facility] [id number]) OP Mobility Evaluation Bed Mobility Rolling indep, usually on side for sleep with pillow between legs or supine pillow under knees OP Gait Assessment Gait Gait Assistance Required: Standby Assistance Assistive Devices Assistive Device Front Wheeled Walker Gait Deviations General Gait Pattern Antalgic,Decreased Stride Length,Decreased Feet Clearance,Flexed Trunk Factors Limiting Gait Function Factors Limiting Gait Function Decreased Activity Tolerance, Decreased Strength Stair Climbing Evaluation Evaluation Level of Assist On Stairs Independent Technique/Endurance Stair Climbing Technique Step to Step PT-OP-J Posture/Palpation/Skin Start: 05/22/22 08:12 Freq: Status: Active Protocol: Document 05/22/22 08:12 [facility] (Rec: 05/23/22 08:46 [facility] [id number]) Skin Assessment Incisional Assessment Incision Appearance/Comments well healed multiple incisions right thigh, poor scar mobility with thickening in many areas. PT-OP-K Range of Motion Start: 05/22/22 08:12 Freq: Status: Active Protocol: Document 05/22/22 08:12 [facility] (Rec: 05/23/22 08:46 [facility] [id number]) Hip Goniometric Range of Motion Hip right Flexion w/Knee Flexed 90 Straight Leg Raise 55 Extension 0 Abduction 25 Internal Rotation 20 External Rotation 30 Hip ROM Limitations Hip ROM Limitations Soft Tissue Tightness PT-OP-M Strength Start: 05/22/22 08:12 Freq: Status: Active Protocol: Document 05/22/22 08:12 [facility] (Rec: 05/23/22 08:46 [facility] [id number]) Knee Strength Knee Manual Muscle Testing Right Comments no MMT due to recent surgery; appears less than anti-gravity strength Left Comments WFL; no MMT due to recent surgery PT-OP-Q Treatments Start: 05/22/22 08:12 Freq: Status: Active Protocol: Document 08/13/22 08:15 [facility] (Rec: 08/13/22 09:02 [facility] [id number]) Cardio Equipment Recumbent Stepper (Sci-Fit) Duration (Minutes) 5 Resistance 2.0 Seat Position 15 Treadmill Duration (Minutes) 5 Speed 1.5 Incline 0 Other cues for upright posture, gluteal activation, dec UE support Gym Equipment Shuttle Recovery Bilateral Heel Raises Resistance 50# Shuttle Recovery Platform Stable Reps/Time 10x2 Unilateral Squats Resistance 50# Shuttle Recovery Platform Unstable Reps/Time 10x2 Bilateral Squats Details cues for LE alignment Resistance 87# Shuttle Recovery Platform Unstable Reps/Time 10x2 Shuttle Balance chains red Details balance and wt shift f/b, side bal Reps/Duration 5 min Comments mirror for visual feedback. Good trunk control Therapeutic Exercises Supine Exercises SLR Supine Exercise Name HEP review Reps/Minutes 10x Comments cues for core engagement, opp gluteal activation bridge Supine Exercise Name modified Reps/Minutes 10x Comments minimal lift due to neck surgery, doctor recom, cues for opp leg glut Sidelying Exercises hip abduction Side bilateral Reps/Minutes 10x Comments unable to lift full ROM Standing Exercises SLS Reps/Minutes 5x 10 each side Comments cane, cues for level pelvis wall posture Reps/Minutes 2 min Comments with eula arms standing calf and hip flexor stretch Reps/Minutes 2x30 Self-Care/Home Management Treatment Education Other Education resume s/l hip abduction, with SLR activate opp glut, modify bridge for gluteal set with min lift PT-OP-R Modalities Start: 05/22/22 08:12 Freq: Status: Active Protocol: Document 07/19/22 09:04 [facility] (Rec: 07/19/22 17:26 [facility] [id number]) Hot Pack/Cold Pack Treatment Hot Pack Location left hip to knee Patient Position Sidelying PT-OP-T Assessment and Plan Start: 05/22/22 08:12 Freq: Status: Active Protocol: Document 08/13/22 08:15 [facility] (Rec: 08/13/22 09:02 [facility] [id number]) Physical Therapy Assessment Goals Four Impairment lacking full knee extension right Short Term Goal (STG) Patient to be instructed in HEP for improving knee extension to support therapy activities 06/25/22: goal met STG Duration goal met Plant Custodian Goal (LTG) Achieve full knee extension actively for improved functional mobility LTG Duration 08/20/22 Three Impairment decreased scar mobility Short Term Goal (STG) Patient to be instructed in self massage of surgical scar to support PT tissue mobilization techniques 06/25/22: goal met STG Duration goal met [facility] Goal (LTG) Improve scar mobility to WNL to allow full function of right LE LTG Duration 08/20/22 Two Impairment gait dysfunction Impairment antalgic gait, using FWW, step -to pattern on nstairs [employer] Custodian Goal (LTG) Patient will be able to ambulate with least restrict device on all surfaces safely including with alternating pattern on stairs 06/25/22: good goal progress LTG Duration 08/20/22 One Impairment weakness Impairment right LE weakness Short Term Goal (STG) Patient to be instrsucted in HEP for purposes of LE strengthening 06/25/22: goal met, ongoing STG Duration goal met, ongoing [facility] Goal (LTG) Patient will be independent and compliant with HEP and demonstrate 5/5 muscle strength right hip LTG Duration 08/20/22 Assessment Summary Assessment Patient has difficulty with full weight acceptance right LE with gait and with standing needs UE support. Weak glut max and med. Neck surgery has impacted ability to follow through with HEP for hip Physical Therapy Plan Frequency and Duration Frequency of Treatment 2x/Week Duration of treatment (weeks) 12 Plan of Care Start Date 05/23/22 Plan of Care End Date 08/21/22 Therapeutic Interventions Therapeutic Interventions Gait Training,Home Exercise Program,Manual Therapy,Patient /Caregiver Education,Self-Care /Home Management,Soft Tissue Mobilization,Taping, Therapeutic Activities, Therapeutic Exercises Modalities Cold Pack/Ice Massage,Electric Stimulation,Hot Packs, Iontophoresis Next Visit Focus/Plan Next Note Type Treatment Note Next Visit Plan Continue rehab or right s/p ORIF with functional retraining, emphasis on gait and balance, functional gluteal strengthening. Stairt with stairs
--- NOTE | 2022-08-16 16:36 | PT.OTN ---
Current Diagnoses Personal history of (healed) traumatic fracture (08/16/22) Physical Therapy Treatment Note PT-OP-A Visit Information Start: 05/22/22 08:12 Freq: Status: Active Protocol: Document 08/16/22 09:51 [facility] (Rec: 08/16/22 10:32 [facility] [id number]) Out-Patient Physical Therapy Visit Information Visit Information Visit Type Treatment Note Visit Start Time 09:48 Visit Number 15 Evaluation Information Evaluation Date 05/22/22 Precautions Precautions WBAT PT-OP-B Current Condition Start: 05/22/22 08:12 Freq: Status: Active Protocol: Document 05/30/22 08:13 [facility] (Rec: 05/30/22 09:01 [facility] [id number]) Current Condition History of Current Condition Onset Date 04/11/22 Current Complaints weakness, difficulty with gait, LE swelling. History of Current Condition GLF 04/11/22 followed by ORIF 04/13/22 due to proximal right femur fracture. After discharge from hospital went to [facility] rehab. Discharged home approx 3 weeks ago. At this time patient partial weight-bearing at least until sees Dr. Shi tomorrow, using FWW. Denies significant pain. Has ramp into house, not using stairs. Uses w/c at times due to difficulty with prolonged standing on left foot. Min N/T under feet. HEP: standing march, knee flex right, heel/ toe raise left, squat, sit to stand. Wears heel lift in left shoe. Prior Treatments and Tests ORIF PT-OP-C Subjective Start: 05/22/22 08:12 Freq: Status: Active Protocol: Document 08/16/22 09:51 [facility] (Rec: 08/16/22 10:32 [facility] [id number]) OP-PT Subjective Patient Comments Patient Comments Feels weak right thigh when tries to walk without a device , trying to do a little gardening, uses cane and rake, notices feeling off balance. States sees value of doing exercises both sides, trying to focus on alignment with all exerciss. PT-OP-G Mobility & Gait Start: 05/22/22 08:12 Freq: Status: Active Protocol: Document 05/22/22 08:12 [facility] (Rec: 05/22/22 08:58 [facility] [id number]) OP Mobility Evaluation Bed Mobility Rolling indep, usually on side for sleep with pillow between legs or supine pillow under knees OP Gait Assessment Gait Gait Assistance Required: Standby Assistance Assistive Devices Assistive Device Front Wheeled Walker Gait Deviations General Gait Pattern Antalgic,Decreased Stride Length,Decreased Feet Clearance,Flexed Trunk Factors Limiting Gait Function Factors Limiting Gait Function Decreased Activity Tolerance, Decreased Strength Stair Climbing Evaluation Evaluation Level of Assist On Stairs Independent Technique/Endurance Stair Climbing Technique Step to Step PT-OP-J Posture/Palpation/Skin Start: 05/22/22 08:12 Freq: Status: Active Protocol: Document 05/22/22 08:12 [facility] (Rec: 05/23/22 08:46 [facility] [id number]) Skin Assessment Incisional Assessment Incision Appearance/Comments well healed multiple incisions right thigh, poor scar mobility with thickening in many areas. PT-OP-K Range of Motion Start: 05/22/22 08:12 Freq: Status: Active Protocol: Document 05/22/22 08:12 [facility] (Rec: 05/23/22 08:46 [facility] [id number]) Hip Goniometric Range of Motion Hip right Flexion w/Knee Flexed 90 Straight Leg Raise 55 Extension 0 Abduction 25 Internal Rotation 20 External Rotation 30 Hip ROM Limitations Hip ROM Limitations Soft Tissue Tightness PT-OP-M Strength Start: 05/22/22 08:12 Freq: Status: Active Protocol: Document 05/22/22 08:12 [facility] (Rec: 05/23/22 08:46 [facility] [id number]) Knee Strength Knee Manual Muscle Testing Right Comments no MMT due to recent surgery; appears less than anti-gravity strength Left Comments WFL; no MMT due to recent surgery PT-OP-Q Treatments Start: 05/22/22 08:12 Freq: Status: Active Protocol: Document 08/16/22 09:51 [facility] (Rec: 08/16/22 10:32 [facility] [id number]) Cardio Equipment Recumbent Stepper (Sci-Fit) Duration (Minutes) 5 Resistance 2.0 Seat Position 15 Treadmill Duration (Minutes) 6 Speed 1.5-1.7 Incline 0-4 Other cues for upright posture, gluteal activation, dec UE support Gym Equipment Shuttle Balance chains red Details balance and wt shift f/b, side bal Reps/Duration 5 min Comments mirror for visual feedback. Good trunk control chains yellow Details balloon volleyball Reps/Duration 5 min Comments mirror for visual feedback for LE alignment PT-OP-R Modalities Start: 05/22/22 08:12 Freq: Status: Active Protocol: Document 07/19/22 09:04 [facility] (Rec: 07/19/22 17:26 [facility] [id number]) Hot Pack/Cold Pack Treatment Hot Pack Location left hip to knee Patient Position Sidelying PT-OP-T Assessment and Plan Start: 05/22/22 08:12 Freq: Status: Active Protocol: Document 08/16/22 09:51 [facility] (Rec: 08/16/22 10:32 [facility] [id number]) Physical Therapy Assessment Goals Four Impairment lacking full knee extension right Short Term Goal (STG) Patient to be instructed in HEP for improving knee extension to support therapy activities 06/25/22: goal met STG Duration goal met [employer] Goal (LTG) Achieve full knee extension actively for improved functional mobility 08/16/22: good goal progress Three Impairment decreased scar mobility Short Term Goal (STG) Patient to be instructed in self massage of surgical scar to support PT tissue mobilization techniques 06/25/22: goal met STG Duration goal met [facility] Goal (LTG) Improve scar mobility to WNL to allow full function of right LE 08/16/22: good goal progress Two Impairment gait dysfunction Impairment antalgic gait, using FWW, step -to pattern on nstairs [employer] Goal (LTG) Patient will be able to ambulate with least restrict device on all surfaces safely including with alternating pattern on stairs 06/25/22: good goal progress 08/16/22: patient ambulating with cane, some compensatory patterns persist One Impairment weakness Impairment right LE weakness Short Term Goal (STG) Patient to be instrsucted in HEP for purposes of LE strengthening 06/25/22: goal met, ongoing STG Duration goal met, ongoing [facility] Goal (LTG) Patient will be independent and compliant with HEP and demonstrate 5/5 muscle strength right hip 08/16/22: right hip ab 3-/5, flex 3+/5, ext3-/5, ER 3+/5, IR 4-/5 LTG Duration 08/20/22 Assessment Summary Assessment Increased emphasis on functional balance using shuttle balance machine with progression to staggered feet A/P, and addition of balloon volleyball. Patient automatic balance reactions improving. Physical Therapy Plan Frequency and Duration Frequency of Treatment 2x/Week Duration of treatment (weeks) 12 Plan of Care Start Date 05/23/22 Plan of Care End Date 08/21/22 Therapeutic Interventions Therapeutic Interventions Gait Training,Home Exercise Program,Manual Therapy,Patient /Caregiver Education,Self-Care /Home Management,Soft Tissue Mobilization,Taping, Therapeutic Activities, Therapeutic Exercises Modalities Cold Pack/Ice Massage,Electric Stimulation,Hot Packs, Iontophoresis Next Visit Focus/Plan Next Note Type Treatment Note Next Visit Plan Continue rehab or right s/p ORIF with functional retraining, emphasis on gait and balance, functional gluteal strengthening. Start with stairs traiing
--- NOTE | 2022-08-20 15:58 | PT.OTRE ---
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) Fractures (10/08/07) Hayfever (1959) Heart failure, systolic History of UTI Lichen sclerosus et atrophicus (2011) Measles (1949) Microscopic hematuria Mitral stenosis Mixed incontinence Osteoarthritis (1996) Osteopenia Osteoporosis Postmenopausal atrophic vaginitis Valvular heart disease Surgical History (Last Updated 07/12/22 @ 16:54 by Shira Zamora) Anesthesia History of carpal tunnel repair (1979) History of carpal tunnel repair (03/23/04) History of cataract removal with insertion of prosthetic lens (01/02/12) History of cataract removal with insertion of prosthetic lens (12/19/11) History of hip replacement (05/08/10) History of hip surgery (05/16/08) History of hip surgery (10/08/07) History of incision and drainage (10/03/18) History of knee replacement (02/11/12) History of knee replacement (07/19/08) History of nasal surgery (10/03/11) History of orthopedic surgery (10/17/09) Periprosthetic fracture around other internal prosthetic joint, initial encounter Status post vaginal hysterectomy (1974) Visit Care Team Role Provider Type Lisa Shi MD Physician Specialty: Orthopedics Orthopedic Surgery Address: [address] [place] [address], [id number] Email: [email or web address] ASHWINI Meza Primary Care Provider Non-Staff Specialty: [facility] Practice Address: [address], [place], [address] Email: Rochelle Ren MD Family Provider Physician Specialty: Family Practice Address: [address] [place] [address], [facility] [place], [address] Email: [email or web address] Kerrie Chawla PA-C Attending Provider Advanced Mold Preparer Referring Provider Specialty: Orthopedics Orthopedic Surgery Address: Susan Franci [facility], [place], [address] Email: [email or web address] Physical Therapy Re-Evaluation PT-OP-A Visit Information Start: 05/22/22 08:12 Freq: Status: Active Protocol: Document 08/20/22 10:32 SAK (Rec: 08/20/22 11:17 SAK [id number]) Out-Patient Physical Therapy Visit Information Visit Information Visit Type Treatment Note Visit Start Time 10:31 Visit Stop Time 11:15 Total Visit Minutes 44 Visit Number 16 Evaluation Information Evaluation Date 05/22/22 Precautions Precautions WBAT PT-OP-B Current Condition Start: 05/22/22 08:12 Freq: Status: Active Protocol: Document 05/30/22 08:13 SAK (Rec: 05/30/22 09:01 SAK [id number]) Current Condition History of Current Condition Onset Date 04/11/22 Current Complaints weakness, difficulty with gait, LE swelling. History of Current Condition GLF 04/11/22 followed by ORIF 04/13/22 due to proximal right femur fracture. After discharge from hospital went to [facility] rehab. Discharged home approx 3 weeks ago. At this time patient partial weight-bearing at least until sees Dr. Shi tomorrow, using FWW. Denies significant pain. Has ramp into house, not using stairs. Uses w/c at times due to difficulty with prolonged standing on left foot. Min N/T under feet. HEP: standing july, knee flex right, heel/ toe raise left, squat, sit to stand. Wears heel lift in left shoe. Prior Treatments and Tests ORIF PT-OP-C Subjective Start: 05/22/22 08:12 Freq: Status: Active Protocol: Document 08/20/22 10:32 SAK (Rec: 08/20/22 11:17 SAK [id number]) OP-PT Subjective Patient Comments Patient Comments Improving walking even without a device. Pool exercise is helping. Sees Dr. Shi Saturday. PT-OP-G Mobility & Gait Start: 05/22/22 08:12 Freq: Status: Active Protocol: Document 05/22/22 08:12 [facility] (Rec: 05/22/22 08:58 [facility] [id number]) OP Mobility Evaluation Bed Mobility Rolling indep, usually on side for sleep with pillow between legs or supine pillow under knees OP Gait Assessment Gait Gait Assistance Required: Standby Assistance Assistive Devices Assistive Device Front Wheeled Walker Gait Deviations General Gait Pattern Antalgic,Decreased Stride Length,Decreased Feet Clearance,Flexed Trunk Factors Limiting Gait Function Factors Limiting Gait Function Decreased Activity Tolerance, Decreased Strength Stair Climbing Evaluation Evaluation Level of Assist On Stairs Independent Technique/Endurance Stair Climbing Technique Step to Step PT-OP-J Posture/Palpation/Skin Start: 05/22/22 08:12 Freq: Status: Active Protocol: Document 05/22/22 08:12 [facility] (Rec: 05/23/22 08:46 [facility] [id number]) Skin Assessment Incisional Assessment Incision Appearance/Comments well healed multiple incisions right thigh, poor scar mobility with thickening in many areas. PT-OP-K Range of Motion Start: 05/22/22 08:12 Freq: Status: Active Protocol: Document 05/22/22 08:12 [facility] (Rec: 05/23/22 08:46 [facility] [id number]) Hip Goniometric Range of Motion Hip Measured in Degrees right Flexion w/Knee Flexed 90 Straight Leg Raise 55 Extension 0 Abduction 25 Internal Rotation 20 External Rotation 30 Hip ROM Limitations Hip ROM Limitations Soft Tissue Tightness PT-OP-M Strength Start: 05/22/22 08:12 Freq: Status: Active Protocol: Document 05/22/22 08:12 [facility] (Rec: 05/23/22 08:46 [facility] [id number]) Knee Strength Knee Manual Muscle Testing Right Comments no MMT due to recent surgery; appears less than anti-gravity strength Left Comments WFL; no MMT due to recent surgery PT-OP-Q Treatments Start: 05/22/22 08:12 Freq: Status: Active Protocol: Document 08/20/22 10:32 SAK (Rec: 08/20/22 11:17 [facility] [id number]) Cardio Equipment Recumbent Stepper (Sci-Fit) Duration (Minutes) 5 Resistance 2.2 Seat Position 15 Other second 1/2 without UE's Treadmill Duration (Minutes) 6 Speed 1.5-1.7 Incline 0-4 Other cues for upright posture, gluteal activation, dec UE support Gym Equipment Shuttle Recovery Bilateral Heel Raises Resistance 50# Shuttle Recovery Platform Stable Reps/Time 10x2 Unilateral Squats Resistance 50# Shuttle Recovery Platform Stable Reps/Time 10x2 Bilateral Squats Details cues for LE alignment Resistance 87# Shuttle Recovery Platform Unstable Reps/Time 10x2 Shuttle Balance chains red Details balance and wt shift f/b, side bal Reps/Duration 5 min Comments mirror for visual feedback. Good trunk control chains yellow Details balloon volleyball Reps/Duration 5 min Comments mirror for visual feedback for LE alignment Gait Training Gait Activity step-ups Comments use of scale stairs Description 1 railing and SPC Device Used railing, SPC Level of Assistance v cuing for gait mechanics Distance/Duration 20 4 stairs x 2 Treatment Focus full weight shift, gluteal activation Comments safety, sequencing, posture, controlled eccentric lowering PT-OP-R Modalities Start: 05/22/22 08:12 Freq: Status: Active Protocol: Document 07/19/22 09:04 [facility] (Rec: 07/19/22 17:26 [facility] [id number]) Hot Pack/Cold Pack Treatment Hot Pack Location left hip to knee Patient Position Sidelying PT-OP-T Assessment and Plan Start: 05/22/22 08:12 Freq: Status: Active Protocol: Document 08/20/22 10:32 SAK (Rec: 08/20/22 11:17 [facility] [id number]) Physical Therapy Assessment Goals Four Impairment lacking full knee extension right Short Term Goal (STG) Patient to be instructed in HEP for improving knee extension to support therapy activities 06/25/22: goal met STG Duration goal met Lead Pony Rider Goal (LTG) Achieve full knee extension actively for improved functional mobility 08/16/22: good goal progress LTG Duration 10/01/22 Three Impairment decreased scar mobility Short Term Goal (STG) Patient to be instructed in self massage of surgical scar to support PT tissue mobilization techniques 06/25/22: goal met STG Duration goal met Longterm Goal (LTG) Improve scar mobility to WNL to allow full function of right LE 08/16/22: good goal progress LTG Duration 10/01/22 Two Impairment gait dysfunction Impairment antalgic gait, using FWW, step -to pattern on nstairs Lead Pony Rider Goal (LTG) Patient will be able to ambulate with least restrict device on all surfaces safely including with alternating pattern on stairs 06/25/22: good goal progress 08/16/22: patient ambulating with cane, some compensatory patterns persist, but improving LTG Duration 10/01/22 One Impairment weakness Impairment right LE weakness Short Term Goal (STG) Patient to be instrsucted in HEP for purposes of LE strengthening 06/25/22: goal met, ongoing STG Duration goal met, ongoing Longterm Goal (LTG) Patient will be independent and compliant with HEP and demonstrate 5/5 muscle strength right hip 08/16/22: right hip ab 3-/5, flex 3+/5, ext3-/5, ER 3+/5, IR 4-/5 LTG Duration 10/01/22 Assessment Summary Assessment Patient making good goal progress in all areas, still some compensatory gait patterns and has difficulty with eccentric control right LE with descending stairs. She is highly compliant to HEP and would benefit from further PT to help her fully achieve her goals and return to prior level of function which includes gardening on her uneven property. Physical Therapy Plan Frequency and Duration Frequency of Treatment 2x/Week Duration of treatment (weeks) 12 Plan of Care Start Date 08/20/22 Plan of Care End Date 10/01/22 Therapeutic Interventions Therapeutic Interventions Gait Training,Home Exercise Program,Manual Therapy,Patient /Caregiver Education,Self-Care /Home Management,Soft Tissue Mobilization,Taping, Therapeutic Activities, Therapeutic Exercises Modalities Cold Pack/Ice Massage,Electric Stimulation,Hot Packs, Iontophoresis Next Visit Focus/Plan Next Note Type Treatment Note Next Visit Plan Continue rehab for right s/p ORIF with functional retraining, emphasis on gait and balance on even and uneven surfaces, strengthening for improved gait especially eccentric control on stairs
--- NOTE | 2022-08-20 15:58 | PT.OPPOC ---
Physical, Occupational & Speech Therapy At [facility] Current Diagnoses Personal history of (healed) traumatic fracture (08/20/22) Visit Care Team Role Provider Type Lisa Shi MD Physician Specialty: Orthopedics Orthopedic Surgery Address: [address] [place] [address], [id number] Email: [email or web address] ASHWINI Meza Primary Care Provider Non-Staff Specialty: Family Practice Address: [address], [address] Email: Rochelle Ren MD Family Provider Physician Specialty: Family Practice Address: [address] [place] [address], [address] Email: [email or web address] Kerrie Chawla PA-C Attending Provider Advanced Manager Lpn Referring Provider Specialty: Orthopedics Orthopedic Surgery Address: [address] [place] [address], [id number] Email: [email or web address] Plan Of Care PT-OP-T Assessment and Plan Start: 05/22/22 08:12 Freq: Status: Active Protocol: Document 08/20/22 10:32 SAK (Rec: 08/20/22 11:17 SAK [id number]) Physical Therapy Assessment Goals Four Impairment lacking full knee extension right Short Term Goal (STG) Patient to be instructed in HEP for improving knee extension to support therapy activities 06/25/22: goal met STG Duration goal met Developing Machine Operator Goal (LTG) Achieve full knee extension actively for improved functional mobility 08/16/22: good goal progress LTG Duration 10/01/22 Three Impairment decreased scar mobility Short Term Goal (STG) Patient to be instructed in self massage of surgical scar to support PT tissue mobilization techniques 06/25/22: goal met STG Duration goal met Penitentiary Goal (LTG) Improve scar mobility to WNL to allow full function of right LE 08/16/22: good goal progress LTG Duration 10/01/22 Two Impairment gait dysfunction Impairment antalgic gait, using FWW, step -to pattern on nstairs Developing Machine Operator Goal (LTG) Patient will be able to ambulate with least restrict device on all surfaces safely including with alternating pattern on stairs 06/25/22: good goal progress 08/16/22: patient ambulating with cane, some compensatory patterns persist, but improving LTG Duration 10/01/22 One Impairment weakness Impairment right LE weakness Short Term Goal (STG) Patient to be instrsucted in HEP for purposes of LE strengthening 06/25/22: goal met, ongoing STG Duration goal met, ongoing Penitentiary Goal (LTG) Patient will be independent and compliant with HEP and demonstrate 5/5 muscle strength right hip 08/16/22: right hip ab 3-/5, flex 3+/5, ext3-/5, ER 3+/5, IR 4-/5 LTG Duration 10/01/22 Assessment Summary Assessment Patient making good goal progress in all areas, still some compensatory gait patterns and has difficulty with eccentric control right LE with descending stairs. She is highly compliant to HEP and would benefit from further PT to help her fully achieve her goals and return to prior level of function which includes gardening on her uneven property. Physical Therapy Plan Frequency and Duration Frequency of Treatment 2x/Week Duration of treatment (weeks) 12 Plan of Care Start Date 08/20/22 Plan of Care End Date 10/01/22 Therapeutic Interventions Therapeutic Interventions Gait Training,Home Exercise Program,Manual Therapy,Patient /Caregiver Education,Self-Care /Home Management,Soft Tissue Mobilization,Taping, Therapeutic Activities, Therapeutic Exercises Modalities Cold Pack/Ice Massage,Electric Stimulation,Hot Packs, Iontophoresis Next Visit Focus/Plan Next Note Type Treatment Note Next Visit Plan Continue rehab for right s/p ORIF with functional retraining, emphasis on gait and balance on even and uneven surfaces, strengthening for improved gait especially eccentric control on stairs Plan of Care Dates Plan of Care Start Date 08/20/22 Plan of Care End Date 10/01/22 Electronically Signed by: Josephine Riggs, PT 08/20/22 1684 If you are in agreement with this Plan of Care, please return a signed and dated copy. I have reviewed this Plan of Care and certify that the skilled therapy services above are required to meet the patient?s needs. Physician Signature Date Printed Name and Credentials Clinical Instructor Signature Printed Name and Credentials
--- NOTE | 2022-08-23 12:09 | PT.OTN ---
Current Diagnoses Personal history of (healed) traumatic fracture (08/23/22) Physical Therapy Treatment Note PT-OP-A Visit Information Start: 05/22/22 08:12 Freq: Status: Active Protocol: Document 08/23/22 11:21 [facility] (Rec: 08/23/22 12:09 [facility] [id number]) Out-Patient Physical Therapy Visit Information Visit Information Visit Type Treatment Note Visit Start Time 11:20 Visit Stop Time 12:05 Total Visit Minutes 45 Visit Number 17 Evaluation Information Evaluation Date 05/22/22 Precautions Precautions WBAT PT-OP-B Current Condition Start: 05/22/22 08:12 Freq: Status: Active Protocol: Document 05/30/22 08:13 [facility] (Rec: 05/30/22 09:01 [facility] [id number]) Current Condition History of Current Condition Onset Date 04/11/22 Current Complaints weakness, difficulty with gait, LE swelling. History of Current Condition GLF 04/11/22 followed by ORIF 04/13/22 due to proximal right femur fracture. After discharge from hospital went to [facility] rehab. Discharged home approx 3 weeks ago. At this time patient partial weight-bearing at least until sees Dr. Crooks tomorrow, using FWW. Denies significant pain. Has ramp into house, not using stairs. Uses w/c at times due to difficulty with prolonged standing on left foot. Min N/T under feet. HEP: standing march, knee flex right, heel/ toe raise left, squat, sit to stand. Wears heel lift in left shoe. Prior Treatments and Tests ORIF PT-OP-C Subjective Start: 05/22/22 08:12 Freq: Status: Active Protocol: Document 08/23/22 11:21 [facility] (Rec: 08/23/22 12:09 [facility] [id number]) OP-PT Subjective Patient Comments Patient Comments Saw Dr. Crooks, reports bone has healed well, going to double her Calcium and consider other medication for bones. Plan is for aquatic therapy after finishes land- based PT. PT-OP-G Mobility & Gait Start: 05/22/22 08:12 Freq: Status: Active Protocol: Document 05/22/22 08:12 SAK (Rec: 05/22/22 08:58 [facility] [id number]) OP Mobility Evaluation Bed Mobility Rolling indep, usually on side for sleep with pillow between legs or supine pillow under knees OP Gait Assessment Gait Gait Assistance Required: Standby Assistance Assistive Devices Assistive Device Front Wheeled Walker Gait Deviations General Gait Pattern Antalgic,Decreased Stride Length,Decreased Feet Clearance,Flexed Trunk Factors Limiting Gait Function Factors Limiting Gait Function Decreased Activity Tolerance, Decreased Strength Stair Climbing Evaluation Evaluation Level of Assist On Stairs Independent Technique/Endurance Stair Climbing Technique Step to Step PT-OP-J Posture/Palpation/Skin Start: 05/22/22 08:12 Freq: Status: Active Protocol: Document 05/22/22 08:12 [facility] (Rec: 05/23/22 08:46 [facility] [id number]) Skin Assessment Incisional Assessment Incision Appearance/Comments well healed multiple incisions right thigh, poor scar mobility with thickening in many areas. PT-OP-K Range of Motion Start: 05/22/22 08:12 Freq: Status: Active Protocol: Document 05/22/22 08:12 [facility] (Rec: 05/23/22 08:46 [facility] [id number]) Hip Goniometric Range of Motion Hip right Flexion w/Knee Flexed 90 Straight Leg Raise 55 Extension 0 Abduction 25 Internal Rotation 20 External Rotation 30 Hip ROM Limitations Hip ROM Limitations Soft Tissue Tightness PT-OP-M Strength Start: 05/22/22 08:12 Freq: Status: Active Protocol: Document 05/22/22 08:12 [facility] (Rec: 05/23/22 08:46 [facility] [id number]) Knee Strength Knee Manual Muscle Testing Right Comments no MMT due to recent surgery; appears less than anti-gravity strength Left Comments WFL; no MMT due to recent surgery PT-OP-Q Treatments Start: 05/22/22 08:12 Freq: Status: Active Protocol: Document 08/23/22 11:21 [facility] (Rec: 08/23/22 12:09 [facility] [id number]) Cardio Equipment Recumbent Stepper (Sci-Fit) Duration (Minutes) 5 Resistance 2.2 Seat Position 15 Other second 1/2 without UE's Treadmill Duration (Minutes) 6 Speed 1.5-1.7 Incline 0-4 Other cues for upright posture, gluteal activation, dec UE support Gym Equipment Cable Column (Body Solid) hip add Resistance 40 Reps/Time 10x2 hip ab Resistance 30 Reps/Time 10x2 Sport Cord green Exercise Details forward, side Reps/Duration 10 min Comments mirror for visual feedback, plus verbal and manual cues Therapeutic Exercises Standing Exercises squat Standing Exercise Name chair squat Equipment Used mirror, Reps/Minutes 10x Comments 100% WB; cues for 50/50 b/t LE 's Gait Training Gait Activity stairs Description 1 railing and SPC Device Used railing, SPC Level of Assistance v cuing for gait mechanics Distance/Duration 20 4 stairs x 2 Treatment Focus full weight shift, gluteal activation Comments safety, sequencing, posture, controlled eccentric lowering PT-OP-R Modalities Start: 05/22/22 08:12 Freq: Status: Active Protocol: Document 07/19/22 09:04 [facility] (Rec: 07/19/22 17:26 [facility] [id number]) Hot Pack/Cold Pack Treatment Hot Pack Location left hip to knee Patient Position Sidelying PT-OP-T Assessment and Plan Start: 05/22/22 08:12 Freq: Status: Active Protocol: Document 08/23/22 11:21 [facility] (Rec: 08/23/22 12:09 [facility] [id number]) Physical Therapy Assessment Goals Four Impairment lacking full knee extension right Short Term Goal (STG) Patient to be instructed in HEP for improving knee extension to support therapy activities 06/25/22: goal met STG Duration goal met Retirement Goal (LTG) Achieve full knee extension actively for improved functional mobility 08/16/22: good goal progress LTG Duration 10/01/22 Three Impairment decreased scar mobility Short Term Goal (STG) Patient to be instructed in self massage of surgical scar to support PT tissue mobilization techniques 06/25/22: goal met STG Duration goal met Repeat Photocomposing Machine Operator Goal (LTG) Improve scar mobility to WNL to allow full function of right LE 08/16/22: good goal progress LTG Duration 10/01/22 Two Impairment gait dysfunction Impairment antalgic gait, using FWW, step -to pattern on nstairs Repeat Photocomposing Machine Operator Goal (LTG) Patient will be able to ambulate with least restrict device on all surfaces safely including with alternating pattern on stairs 06/25/22: good goal progress 08/16/22: patient ambulating with cane, some compensatory patterns persist, but improving LTG Duration 10/01/22 One Impairment weakness Impairment right LE weakness Short Term Goal (STG) Patient to be instrsucted in HEP for purposes of LE strengthening 06/25/22: goal met, ongoing STG Duration goal met, ongoing Retirement Goal (LTG) Patient will be independent and compliant with HEP and demonstrate 5/5 muscle strength right hip 08/16/22: right hip ab 3-/5, flex 3+/5, ext3-/5, ER 3+/5, IR 4-/5 LTG Duration 10/01/22 Assessment Summary Assessment Good progress, using mirror for visual feedback for excess lean to the left with gait. Decreased pelvic rotation laterally with chair squats today. Cont to progress with functional strengthening, gait . Unable to ambulate without device due to gluteal weakness . Added hip add and ab on weight machine today. Physical Therapy Plan Frequency and Duration Frequency of Treatment 2x/Week Duration of treatment (weeks) 12 Plan of Care Start Date 08/20/22 Plan of Care End Date 10/01/22 Therapeutic Interventions Therapeutic Interventions Gait Training,Home Exercise Program,Manual Therapy,Patient /Caregiver Education,Self-Care /Home Management,Soft Tissue Mobilization,Taping, Therapeutic Activities, Therapeutic Exercises Modalities Cold Pack/Ice Massage,Electric Stimulation,Hot Packs, Iontophoresis Next Visit Focus/Plan Next Note Type Treatment Note Next Visit Plan Continue rehab for right s/p ORIF with functional retraining, emphasis on gait and balance on even and uneven surfaces, strengthening for improved gait especially eccentric control on stairs
--- NOTE | 2022-08-27 15:15 | PT.OTN ---
Current Diagnoses Personal history of (healed) traumatic fracture (08/27/22) Physical Therapy Treatment Note PT-OP-A Visit Information Start: 05/22/22 08:12 Freq: Status: Active Protocol: Document 08/27/22 14:31 [facility] (Rec: 08/27/22 15:15 [facility] [id number]) Out-Patient Physical Therapy Visit Information Visit Information Visit Type Treatment Note Visit Start Time 14:33 Visit Stop Time 15:15 Total Visit Minutes 42 Visit Number 18 Evaluation Information Evaluation Date 05/22/22 Precautions Precautions WBAT PT-OP-B Current Condition Start: 05/22/22 08:12 Freq: Status: Active Protocol: Document 05/30/22 08:13 [facility] (Rec: 05/30/22 09:01 [facility] [id number]) Current Condition History of Current Condition Onset Date 04/11/22 Current Complaints weakness, difficulty with gait, LE swelling. History of Current Condition GLF 04/11/22 followed by ORIF 04/13/22 due to proximal right femur fracture. After discharge from hospital went to [facility] rehab. Discharged home approx 3 weeks ago. At this time patient partial weight-bearing at least until sees Dr. Shi tomorrow, using FWW. Denies significant pain. Has ramp into house, not using stairs. Uses w/c at times due to difficulty with prolonged standing on left foot. Min N/T under feet. HEP: standing march, knee flex right, heel/ toe raise left, squat, sit to stand. Wears heel lift in left shoe. Prior Treatments and Tests ORIF PT-OP-C Subjective Start: 05/22/22 08:12 Freq: Status: Active Protocol: Document 08/27/22 14:31 [facility] (Rec: 08/27/22 15:15 [facility] [id number]) OP-PT Subjective Patient Comments Patient Comments No new c/o. Went to pool before PT today. PT-OP-G Mobility & Gait Start: 05/22/22 08:12 Freq: Status: Active Protocol: Document 05/22/22 08:12 [facility] (Rec: 05/22/22 08:58 [facility] [id number]) OP Mobility Evaluation Bed Mobility Rolling indep, usually on side for sleep with pillow between legs or supine pillow under knees OP Gait Assessment Gait Gait Assistance Required: Standby Assistance Assistive Devices Assistive Device Front Wheeled Walker Gait Deviations General Gait Pattern Antalgic,Decreased Stride Length,Decreased Feet Clearance,Flexed Trunk Factors Limiting Gait Function Factors Limiting Gait Function Decreased Activity Tolerance, Decreased Strength Stair Climbing Evaluation Evaluation Level of Assist On Stairs Independent Technique/Endurance Stair Climbing Technique Step to Step PT-OP-J Posture/Palpation/Skin Start: 05/22/22 08:12 Freq: Status: Active Protocol: Document 05/22/22 08:12 [facility] (Rec: 05/23/22 08:46 [facility] [id number]) Skin Assessment Incisional Assessment Incision Appearance/Comments well healed multiple incisions right thigh, poor scar mobility with thickening in many areas. PT-OP-K Range of Motion Start: 05/22/22 08:12 Freq: Status: Active Protocol: Document 05/22/22 08:12 [facility] (Rec: 05/23/22 08:46 [facility] [id number]) Hip Goniometric Range of Motion Hip right Flexion w/Knee Flexed 90 Straight Leg Raise 55 Extension 0 Abduction 25 Internal Rotation 20 External Rotation 30 Hip ROM Limitations Hip ROM Limitations Soft Tissue Tightness PT-OP-M Strength Start: 05/22/22 08:12 Freq: Status: Active Protocol: Document 05/22/22 08:12 [facility] (Rec: 05/23/22 08:46 [facility] [id number]) Knee Strength Knee Manual Muscle Testing Right Comments no MMT due to recent surgery; appears less than anti-gravity strength Left Comments WFL; no MMT due to recent surgery PT-OP-Q Treatments Start: 05/22/22 08:12 Freq: Status: Active Protocol: Document 08/27/22 14:31 [facility] (Rec: 08/27/22 15:15 [facility] [id number]) Cardio Equipment Recumbent Stepper (Sci-Fit) Duration (Minutes) 5 Resistance 2.5 Seat Position 15 Other second 1/2 without UE's Treadmill Duration (Minutes) 6 Speed 1.5-1.8 Incline 0-4 Other cues for upright posture, gluteal activation, dec UE support Gym Equipment Cable Column (Body Solid) hamstring curl Resistance 40,60 Reps/Time 2x10 hip add Resistance 40 Reps/Time 10x2 hip ab Resistance 30 Reps/Time 10x2 Shuttle Recovery Unilateral Squats Resistance 50# Shuttle Recovery Platform Stable Reps/Time 10x2 Shuttle Balance chains red Details balance and wt shift f/b, side bal Reps/Duration 5 min Comments mirror for visual feedback. Good trunk control chains yellow Details balloon volleyball Reps/Duration 5 min Comments mirror for visual feedback for LE alignment Therapeutic Exercises Standing Exercises squat Standing Exercise Name chair squat Equipment Used mirror, Reps/Minutes 10x Comments 100% WB; cues for 50/50 b/t LE 's Gait Training Gait Activity stairs Description 1 railing and SPC Device Used railing, SPC Level of Assistance v cuing for gait mechanics Distance/Duration 20 4 stairs x 2 Treatment Focus full weight shift, gluteal activation Comments safety, sequencing, posture, controlled eccentric lowering PT-OP-R Modalities Start: 05/22/22 08:12 Freq: Status: Active Protocol: Document 07/19/22 09:04 [facility] (Rec: 07/19/22 17:26 [facility] [id number]) Hot Pack/Cold Pack Treatment Hot Pack Location left hip to knee Patient Position Sidelying PT-OP-T Assessment and Plan Start: 05/22/22 08:12 Freq: Status: Active Protocol: Document 08/27/22 14:31 [facility] (Rec: 08/27/22 15:15 [facility] [id number]) Physical Therapy Assessment Goals Four Impairment lacking full knee extension right Short Term Goal (STG) Patient to be instructed in HEP for improving knee extension to support therapy activities 06/25/22: goal met STG Duration goal met Cfa Goal (LTG) Achieve full knee extension actively for improved functional mobility 08/16/22: good goal progress LTG Duration 10/01/22 Three Impairment decreased scar mobility Short Term Goal (STG) Patient to be instructed in self massage of surgical scar to support PT tissue mobilization techniques 06/25/22: goal met STG Duration goal met Cfa Goal (LTG) Improve scar mobility to WNL to allow full function of right LE 08/16/22: good goal progress LTG Duration 10/01/22 Two Impairment gait dysfunction Impairment antalgic gait, using FWW, step -to pattern on nstairs Intermediate Goal (LTG) Patient will be able to ambulate with least restrict device on all surfaces safely including with alternating pattern on stairs 06/25/22: good goal progress 08/16/22: patient ambulating with cane, some compensatory patterns persist, but improving LTG Duration 10/01/22 One Impairment weakness Impairment right LE weakness Short Term Goal (STG) Patient to be instrsucted in HEP for purposes of LE strengthening 06/25/22: goal met, ongoing STG Duration goal met, ongoing Intermediate Goal (LTG) Patient will be independent and compliant with HEP and demonstrate 5/5 muscle strength right hip 08/16/22: right hip ab 3-/5, flex 3+/5, ext3-/5, ER 3+/5, IR 4-/5 LTG Duration 10/01/22 Progress Towards Goals Progress Towards Goals Progressing Toward Goals Assessment Summary Assessment Continue work with mirror, patient better able to see compensation and self-correct with use of mirror. Added HS curl, inc speed on treadmill. Physical Therapy Plan Frequency and Duration Frequency of Treatment 2x/Week Duration of treatment (weeks) 12 Plan of Care Start Date 08/20/22 Plan of Care End Date 10/01/22 Therapeutic Interventions Therapeutic Interventions Gait Training,Home Exercise Program,Manual Therapy,Patient /Caregiver Education,Self-Care /Home Management,Soft Tissue Mobilization,Taping, Therapeutic Activities, Therapeutic Exercises Modalities Cold Pack/Ice Massage,Electric Stimulation,Hot Packs, Iontophoresis Next Visit Focus/Plan Next Note Type Treatment Note Next Visit Plan Continue PT, emphasis on strengthening and gait normalization.
--- NOTE | 2022-08-30 11:59 | PT.OTN ---
Current Diagnoses Personal history of (healed) traumatic fracture (08/30/22) Physical Therapy Treatment Note PT-OP-A Visit Information Start: 05/22/22 08:12 Freq: Status: Active Protocol: Document 08/30/22 11:21 [facility] (Rec: 08/30/22 11:59 [facility] [id number]) Out-Patient Physical Therapy Visit Information Visit Information Visit Type Treatment Note Visit Start Time 11:15 Visit Stop Time 12:00 Total Visit Minutes 45 Visit Number 19 Evaluation Information Evaluation Date 05/22/22 Precautions Precautions WBAT PT-OP-B Current Condition Start: 05/22/22 08:12 Freq: Status: Active Protocol: Document 05/30/22 08:13 [facility] (Rec: 05/30/22 09:01 [facility] [id number]) Current Condition History of Current Condition Onset Date 04/11/22 Current Complaints weakness, difficulty with gait, LE swelling. History of Current Condition GLF 04/11/22 followed by ORIF 04/13/22 due to proximal right femur fracture. After discharge from hospital went to [facility] rehab. Discharged home approx 3 weeks ago. At this time patient partial weight-bearing at least until sees Dr. Shi tomorrow, using FWW. Denies significant pain. Has ramp into house, not using stairs. Uses w/c at times due to difficulty with prolonged standing on left foot. Min N/T under feet. HEP: standing march, knee flex right, heel/ toe raise left, squat, sit to stand. Wears heel lift in left shoe. Prior Treatments and Tests ORIF PT-OP-C Subjective Start: 05/22/22 08:12 Freq: Status: Active Protocol: Document 08/30/22 11:21 [facility] (Rec: 08/30/22 11:59 [facility] [id number]) OP-PT Subjective Patient Comments Patient Comments States at times can walk without device with little to no limp PT-OP-G Mobility & Gait Start: 05/22/22 08:12 Freq: Status: Active Protocol: Document 05/22/22 08:12 [facility] (Rec: 05/22/22 08:58 [facility] [id number]) OP Mobility Evaluation Bed Mobility Rolling indep, usually on side for sleep with pillow between legs or supine pillow under knees OP Gait Assessment Gait Gait Assistance Required: Standby Assistance Assistive Devices Assistive Device Front Wheeled Walker Gait Deviations General Gait Pattern Antalgic,Decreased Stride Length,Decreased Feet Clearance,Flexed Trunk Factors Limiting Gait Function Factors Limiting Gait Function Decreased Activity Tolerance, Decreased Strength Stair Climbing Evaluation Evaluation Level of Assist On Stairs Independent Technique/Endurance Stair Climbing Technique Step to Step PT-OP-J Posture/Palpation/Skin Start: 05/22/22 08:12 Freq: Status: Active Protocol: Document 05/22/22 08:12 [facility] (Rec: 05/23/22 08:46 [facility] [id number]) Skin Assessment Incisional Assessment Incision Appearance/Comments well healed multiple incisions right thigh, poor scar mobility with thickening in many areas. PT-OP-K Range of Motion Start: 05/22/22 08:12 Freq: Status: Active Protocol: Document 05/22/22 08:12 [facility] (Rec: 05/23/22 08:46 [facility] [id number]) Hip Goniometric Range of Motion Hip right Flexion w/Knee Flexed 90 Straight Leg Raise 55 Extension 0 Abduction 25 Internal Rotation 20 External Rotation 30 Hip ROM Limitations Hip ROM Limitations Soft Tissue Tightness PT-OP-M Strength Start: 05/22/22 08:12 Freq: Status: Active Protocol: Document 05/22/22 08:12 [facility] (Rec: 05/23/22 08:46 [facility] [id number]) Knee Strength Knee Manual Muscle Testing Right Comments no MMT due to recent surgery; appears less than anti-gravity strength Left Comments WFL; no MMT due to recent surgery PT-OP-Q Treatments Start: 05/22/22 08:12 Freq: Status: Active Protocol: Document 08/30/22 11:21 [facility] (Rec: 08/30/22 11:59 [facility] [id number]) Cardio Equipment Recumbent Stepper (Sci-Fit) Duration (Minutes) 5 Resistance 2.5 Seat Position 15 Other second 1/2 without UE's Treadmill Duration (Minutes) 6 Speed 1.5-1.8 Incline 0-4 Other cues for upright posture, gluteal activation, dec UE support Gym Equipment Cable Column (Body Solid) hamstring curl Resistance 60 Reps/Time 2x10 hip add Resistance 40 Reps/Time 10x2 hip ab Resistance 30 Reps/Time 12x2 Shuttle Recovery Unilateral Squats Resistance 50# Shuttle Recovery Platform Stable Reps/Time 10x2 Shuttle Balance chains red Details balance and wt shift with holds f/b, side bal, Reps/Duration 8 min Comments mirror for visual feedback. Good trunk control chains yellow Details balloon volleyball Reps/Duration 5 min Comments mirror for visual feedback for LE alignment Therapeutic Exercises Standing Exercises glut set Reps/Minutes 10x5 meño 5x 5 unil Gait Training Gait Activity stairs Description 1 railing and SPC Device Used railing, SPC Level of Assistance v cuing for gait mechanics Distance/Duration 20 4 stairs x 2 Treatment Focus full weight shift, gluteal activation Comments safety, sequencing, posture, controlled eccentric lowering PT-OP-R Modalities Start: 05/22/22 08:12 Freq: Status: Active Protocol: Document 07/19/22 09:04 [facility] (Rec: 07/19/22 17:26 [facility] [id number]) Hot Pack/Cold Pack Treatment Hot Pack Location left hip to knee Patient Position Sidelying PT-OP-T Assessment and Plan Start: 05/22/22 08:12 Freq: Status: Active Protocol: Document 08/30/22 11:21 [facility] (Rec: 08/30/22 11:59 [facility] [id number]) Physical Therapy Assessment Goals Four Impairment lacking full knee extension right Short Term Goal (STG) Patient to be instructed in HEP for improving knee extension to support therapy activities 06/25/22: goal met STG Duration goal met Detention Goal (LTG) Achieve full knee extension actively for improved functional mobility 08/16/22: good goal progress LTG Duration 10/01/22 Three Impairment decreased scar mobility Short Term Goal (STG) Patient to be instructed in self massage of surgical scar to support PT tissue mobilization techniques 06/25/22: goal met STG Duration goal met [employer] Tr[employer] Goal (LTG) Improve scar mobility to WNL to allow full function of right LE 08/16/22: good goal progress LTG Duration 10/01/22 Two Impairment gait dysfunction Impairment antalgic gait, using FWW, step -to pattern on nstairs Detention Goal (LTG) Patient will be able to ambulate with least restrict device on all surfaces safely including with alternating pattern on stairs 06/25/22: good goal progress 08/16/22: patient ambulating with cane, some compensatory patterns persist, but improving LTG Duration 10/01/22 One Impairment weakness Impairment right LE weakness Short Term Goal (STG) Patient to be instrsucted in HEP for purposes of LE strengthening 06/25/22: goal met, ongoing STG Duration goal met, ongoing [employer] Trimmer Goal (LTG) Patient will be independent and compliant with HEP and demonstrate 5/5 muscle strength right hip 08/16/22: right hip ab 3-/5, flex 3+/5, ext3-/5, ER 3+/5, IR 4-/5 LTG Duration 10/01/22 Progress Towards Goals Progress Towards Goals Progressing Toward Goals Assessment Summary Assessment Improved gait with less limp, patient reports feeling stronger, improved balance. Physical Therapy Plan Frequency and Duration Frequency of Treatment 2x/Week Duration of treatment (weeks) 12 Plan of Care Start Date 08/20/22 Plan of Care End Date 10/01/22 Therapeutic Interventions Therapeutic Interventions Gait Training,Home Exercise Program,Manual Therapy,Patient /Caregiver Education,Self-Care /Home Management,Soft Tissue Mobilization,Taping, Therapeutic Activities, Therapeutic Exercises Modalities Cold Pack/Ice Massage,Electric Stimulation,Hot Packs, Iontophoresis Next Visit Focus/Plan Next Note Type Treatment Note Next Visit Plan Continue PT, emphasis on strengthening and gait normalization.
--- NOTE | 2022-09-10 16:20 | PT.OTN ---
Current Diagnoses Personal history of (healed) traumatic fracture (09/10/22) Physical Therapy Treatment Note PT-OP-A Visit Information Start: 05/22/22 08:12 Freq: Status: Active Protocol: Document 09/10/22 11:16 [facility] (Rec: 09/10/22 12:26 [facility] [id number]) Out-Patient Physical Therapy Visit Information Visit Information Visit Type Treatment Note Visit Start Time 11:16 Visit Stop Time 12:00 Total Visit Minutes 44 Visit Number 20 Evaluation Information Evaluation Date 05/22/22 Precautions Precautions WBAT PT-OP-B Current Condition Start: 05/22/22 08:12 Freq: Status: Active Protocol: Document 05/30/22 08:13 [facility] (Rec: 05/30/22 09:01 [facility] [id number]) Current Condition History of Current Condition Onset Date 04/11/22 Current Complaints weakness, difficulty with gait, LE swelling. History of Current Condition GLF 04/11/22 followed by ORIF 04/13/22 due to proximal right femur fracture. After discharge from hospital went to [facility] rehab. Discharged home approx 3 weeks ago. At this time patient partial weight-bearing at least until sees Dr. Shi tomorrow, using FWW. Denies significant pain. Has ramp into house, not using stairs. Uses w/c at times due to difficulty with prolonged standing on left foot. Min N/T under feet. HEP: standing march, knee flex right, heel/ toe raise left, squat, sit to stand. Wears heel lift in left shoe. Prior Treatments and Tests ORIF PT-OP-C Subjective Start: 05/22/22 08:12 Freq: Status: Active Protocol: Document 09/10/22 11:16 [facility] (Rec: 09/10/22 12:26 [facility] [id number]) OP-PT Subjective Patient Comments Patient Comments Reports having to be very careful outside gardening. Low back bothering her with prolonged sitting and standing . PT-OP-G Mobility & Gait Start: 05/22/22 08:12 Freq: Status: Active Protocol: Document 05/22/22 08:12 [facility] (Rec: 05/22/22 08:58 [facility] [id number]) OP Mobility Evaluation Bed Mobility Rolling indep, usually on side for sleep with pillow between legs or supine pillow under knees OP Gait Assessment Gait Gait Assistance Required: Standby Assistance Assistive Devices Assistive Device Front Wheeled Walker Gait Deviations General Gait Pattern Antalgic,Decreased Stride Length,Decreased Feet Clearance,Flexed Trunk Factors Limiting Gait Function Factors Limiting Gait Function Decreased Activity Tolerance, Decreased Strength Stair Climbing Evaluation Evaluation Level of Assist On Stairs Independent Technique/Endurance Stair Climbing Technique Step to Step PT-OP-J Posture/Palpation/Skin Start: 05/22/22 08:12 Freq: Status: Active Protocol: Document 05/22/22 08:12 [facility] (Rec: 05/23/22 08:46 [facility] [id number]) Skin Assessment Incisional Assessment Incision Appearance/Comments well healed multiple incisions right thigh, poor scar mobility with thickening in many areas. PT-OP-K Range of Motion Start: 05/22/22 08:12 Freq: Status: Active Protocol: Document 05/22/22 08:12 [facility] (Rec: 05/23/22 08:46 [facility] [id number]) Hip Goniometric Range of Motion Hip right Flexion w/Knee Flexed 90 Straight Leg Raise 55 Extension 0 Abduction 25 Internal Rotation 20 External Rotation 30 Hip ROM Limitations Hip ROM Limitations Soft Tissue Tightness PT-OP-M Strength Start: 05/22/22 08:12 Freq: Status: Active Protocol: Document 05/22/22 08:12 [facility] (Rec: 05/23/22 08:46 [facility] [id number]) Knee Strength Knee Manual Muscle Testing Right Comments no MMT due to recent surgery; appears less than anti-gravity strength Left Comments WFL; no MMT due to recent surgery PT-OP-Q Treatments Start: 05/22/22 08:12 Freq: Status: Active Protocol: Document 09/10/22 11:16 [facility] (Rec: 09/10/22 12:26 [facility] [id number]) Cardio Equipment Recumbent Stepper (Sci-Fit) Duration (Minutes) 6 Resistance 3 Seat Position 15 Other second 1/2 without UE's Gym Equipment Shuttle Recovery Unilateral Squats Resistance 50# Shuttle Recovery Platform Stable Reps/Time 10x2 Shuttle Balance chains red Details balance and wt shift with holds f/b, side bal, Reps/Duration 8 min Comments mirror for visual feedback. Good trunk control chains yellow Details balloon volleyball Reps/Duration 5 min Comments mirror for visual feedback for LE alignment Therapeutic Exercises Supine Exercises DLS Supine Exercise Name march, double leg lowering, bicycle Comments cues for neutral spine bridge Supine Exercise Name modified single leg Reps/Minutes 10x Comments minimal lift due to neck surgery, doctor recom, cues for opp leg glut Sidelying Exercises hip abduction Side bilateral Reps/Minutes 10x Comments unable to lift full ROM PT-OP-R Modalities Start: 05/22/22 08:12 Freq: Status: Active Protocol: Document 07/19/22 09:04 [facility] (Rec: 07/19/22 17:26 [facility] [id number]) Hot Pack/Cold Pack Treatment Hot Pack Location left hip to knee Patient Position Sidelying PT-OP-T Assessment and Plan Start: 05/22/22 08:12 Freq: Status: Active Protocol: Document 09/10/22 11:16 [facility] (Rec: 09/10/22 12:26 [facility] [id number]) Physical Therapy Assessment Goals Four Impairment lacking full knee extension right Short Term Goal (STG) Patient to be instructed in HEP for improving knee extension to support therapy activities 06/25/22: goal met STG Duration goal met [employer] Hand Goal (LTG) Achieve full knee extension actively for improved functional mobility 08/16/22: good goal progress 09/10/22: goal met LTG Duration goal met Three Impairment decreased scar mobility Short Term Goal (STG) Patient to be instructed in self massage of surgical scar to support PT tissue mobilization techniques 06/25/22: goal met STG Duration goal met Correction Goal (LTG) Improve scar mobility to WNL to allow full function of right LE 08/16/22: good goal progress 09/10/22: goal met LTG Duration goal met Two Impairment gait dysfunction Impairment antalgic gait, using FWW, step -to pattern on nstairs [employer] Hand Goal (LTG) Patient will be able to ambulate with least restrict device on all surfaces safely including with alternating pattern on stairs 06/25/22: good goal progress 08/16/22: patient ambulating with cane, some compensatory patterns persist, but improving 09/10/22: goal progress LTG Duration 10/01/22 One Impairment weakness Impairment right LE weakness Short Term Goal (STG) Patient to be instrsucted in HEP for purposes of LE strengthening 06/25/22: goal met, ongoing STG Duration goal met, ongoing [employer] Hand Goal (LTG) Patient will be independent and compliant with HEP and demonstrate 5/5 muscle strength right hip 08/16/22: right hip ab 3-/5, flex 3+/5, ext3-/5, ER 3+/5, IR 4-/5 09/10/22: goal progress but slow : hip ab 3/5, flex4-/5, ER 4-/ 5, IR 4/5, ext 3-/5 LTG Duration 10/01/22 Progress Towards Goals Progress Towards Goals Progressing Toward Goals Assessment Summary Assessment Pain dec right hip to 1/10, LB 2/10 due to some residual compensatory gait patterns and patient continues to require use of a cane for gait. Strength right hip improving but most limited abduction and extension. Scar mobility improved. Patient highly compliant to her HEP. Will benefit from further PT to help her fully achieve her above goals. Physical Therapy Plan Frequency and Duration Frequency of Treatment 2x/Week Duration of treatment (weeks) 12 Plan of Care Start Date 08/20/22 Plan of Care End Date 10/01/22 Therapeutic Interventions Therapeutic Interventions Gait Training,Home Exercise Program,Manual Therapy,Patient /Caregiver Education,Self-Care /Home Management,Soft Tissue Mobilization,Taping, Therapeutic Activities, Therapeutic Exercises Modalities Cold Pack/Ice Massage,Electric Stimulation,Hot Packs, Iontophoresis Next Visit Focus/Plan Next Note Type Treatment Note Next Visit Plan Continue to progress gait training, strengtheing, and balance. Start with gait on stairs and in parallel bars with emphasis on dec UE support.
--- NOTE | 2022-09-17 16:28 | PT.OTN ---
Current Diagnoses Personal history of (healed) traumatic fracture (09/17/22) Physical Therapy Treatment Note PT-OP-A Visit Information Start: 05/22/22 08:12 Freq: Status: Active Protocol: Document 09/17/22 12:42 [facility] (Rec: 09/17/22 13:11 [facility] [id number]) Out-Patient Physical Therapy Visit Information Visit Information Visit Type Treatment Note Visit Start Time 11:16 Visit Stop Time 12:00 Total Visit Minutes 44 Visit Number 21 Evaluation Information Evaluation Date 05/22/22 Precautions Precautions WBAT PT-OP-B Current Condition Start: 05/22/22 08:12 Freq: Status: Active Protocol: Document 05/30/22 08:13 [facility] (Rec: 05/30/22 09:01 [facility] [id number]) Current Condition History of Current Condition Onset Date 04/11/22 Current Complaints weakness, difficulty with gait, LE swelling. History of Current Condition GLF 04/11/22 followed by ORIF 04/13/22 due to proximal right femur fracture. After discharge from hospital went to [facility] rehab. Discharged home approx 3 weeks ago. At this time patient partial weight-bearing at least until sees Dr. Shi tomorrow, using FWW. Denies significant pain. Has ramp into house, not using stairs. Uses w/c at times due to difficulty with prolonged standing on left foot. Min N/T under feet. HEP: standing march, knee flex right, heel/ toe raise left, squat, sit to stand. Wears heel lift in left shoe. Prior Treatments and Tests ORIF PT-OP-C Subjective Start: 05/22/22 08:12 Freq: Status: Active Protocol: Document 09/17/22 12:42 [facility] (Rec: 09/17/22 13:11 [facility] [id number]) OP-PT Subjective Patient Comments Patient Comments right medial thigh tightness and strain when trying to put full weight on leg for walking PT-OP-G Mobility & Gait Start: 05/22/22 08:12 Freq: Status: Active Protocol: Document 05/22/22 08:12 [facility] (Rec: 05/22/22 08:58 [facility] [id number]) OP Mobility Evaluation Bed Mobility Rolling indep, usually on side for sleep with pillow between legs or supine pillow under knees OP Gait Assessment Gait Gait Assistance Required: Standby Assistance Assistive Devices Assistive Device Front Wheeled Walker Gait Deviations General Gait Pattern Antalgic,Decreased Stride Length,Decreased Feet Clearance,Flexed Trunk Factors Limiting Gait Function Factors Limiting Gait Function Decreased Activity Tolerance, Decreased Strength Stair Climbing Evaluation Evaluation Level of Assist On Stairs Independent Technique/Endurance Stair Climbing Technique Step to Step PT-OP-J Posture/Palpation/Skin Start: 05/22/22 08:12 Freq: Status: Active Protocol: Document 05/22/22 08:12 [facility] (Rec: 05/23/22 08:46 [facility] [id number]) Skin Assessment Incisional Assessment Incision Appearance/Comments well healed multiple incisions right thigh, poor scar mobility with thickening in many areas. PT-OP-K Range of Motion Start: 05/22/22 08:12 Freq: Status: Active Protocol: Document 05/22/22 08:12 [facility] (Rec: 05/23/22 08:46 [facility] [id number]) Hip Goniometric Range of Motion Hip right Flexion w/Knee Flexed 90 Straight Leg Raise 55 Extension 0 Abduction 25 Internal Rotation 20 External Rotation 30 Hip ROM Limitations Hip ROM Limitations Soft Tissue Tightness PT-OP-M Strength Start: 05/22/22 08:12 Freq: Status: Active Protocol: Document 05/22/22 08:12 [facility] (Rec: 05/23/22 08:46 [facility] [id number]) Knee Strength Knee Manual Muscle Testing Right Comments no MMT due to recent surgery; appears less than anti-gravity strength Left Comments WFL; no MMT due to recent surgery PT-OP-Q Treatments Start: 05/22/22 08:12 Freq: Status: Active Protocol: Document 09/17/22 12:42 [facility] (Rec: 09/17/22 13:11 [facility] [id number]) Therapeutic Exercises Supine Exercises butterfly stretch Reps/Minutes 2x30 Noah stretch Reps/Minutes 3x30 right, 2x30 left Comments manual cues for neutral alignment DLS Supine Exercise Name march, double leg lowering, bicycle Comments cues for neutral spine Standing Exercises quad stretch Equipment Used chair Reps/Minutes 1x30 glut set Reps/Minutes 10x5 meño 5x 5 unil squat Standing Exercise Name chair squat Equipment Used mirror, Reps/Minutes 10x Comments 100% WB; cues for 50/50 b/t LE 's Gait Training Gait Activity parallel bars Level of Assistance VC Surface firm Distance/Duration 10 ft x 2 Treatment Focus 100% WB Comments cued upright posture, gluteal activation, inc knee extension right, 1 hand support weight acceptance Manual Therapy Treatment Soft Tissue Mobilization IT band Mobilization Type Instrument Assisted,Myofascial Release,Strumming Intensity/Depth Moderate Body Position Hooklying piriformis, quads, glut med Mobilization Type Instrument Assisted,Myofascial Release,Strumming surgical scars Mobilization Type Instrument Assisted,Myofascial Release,Strumming Intensity/Depth Moderate Body Position Hooklying PT-OP-R Modalities Start: 05/22/22 08:12 Freq: Status: Active Protocol: Document 09/17/22 12:42 [facility] (Rec: 09/17/22 13:15 [facility] [id number]) Hot Pack/Cold Pack Treatment Hot Pack Location right hip add,quads,ITB Patient Position Supine Treatment Duration (minutes) 15 Patient Tolerance Good PT-OP-T Assessment and Plan Start: 05/22/22 08:12 Freq: Status: Active Protocol: Document 09/17/22 12:42 [facility] (Rec: 09/17/22 13:11 [facility] [id number]) Physical Therapy Assessment Goals Four Impairment lacking full knee extension right Short Term Goal (STG) Patient to be instructed in HEP for improving knee extension to support therapy activities 06/25/22: goal met STG Duration goal met Platen Press Feeder Goal (LTG) Achieve full knee extension actively for improved functional mobility 08/16/22: good goal progress 09/10/22: goal met LTG Duration goal met Three Impairment decreased scar mobility Short Term Goal (STG) Patient to be instructed in self massage of surgical scar to support PT tissue mobilization techniques 06/25/22: goal met STG Duration goal met Alf Goal (LTG) Improve scar mobility to WNL to allow full function of right LE 08/16/22: good goal progress 09/10/22: goal met LTG Duration goal met Two Impairment gait dysfunction Impairment antalgic gait, using FWW, step -to pattern on nstairs Platen Press Feeder Goal (LTG) Patient will be able to ambulate with least restrict device on all surfaces safely including with alternating pattern on stairs 06/25/22: good goal progress 08/16/22: patient ambulating with cane, some compensatory patterns persist, but improving 09/10/22: goal progress LTG Duration 10/01/22 One Impairment weakness Impairment right LE weakness Short Term Goal (STG) Patient to be instrsucted in HEP for purposes of LE strengthening 06/25/22: goal met, ongoing STG Duration goal met, ongoing Alf Goal (LTG) Patient will be independent and compliant with HEP and demonstrate 5/5 muscle strength right hip 08/16/22: right hip ab 3-/5, flex 3+/5, ext3-/5, ER 3+/5, IR 4-/5 09/10/22: goal progress but slow : hip ab 3/5, flex4-/5, ER 4-/ 5, IR 4/5, ext 3-/5 LTG Duration 10/01/22 Assessment Summary Assessment Added butterfly and Noah stretches with good tolerance, resumed manual techniques due to soft tissue tightness entire right thigh, encouraged pt return to using rolling pin. Ended with moist heat with good tolerance. Physical Therapy Plan Frequency and Duration Frequency of Treatment 2x/Week Duration of treatment (weeks) 12 Plan of Care Start Date 08/20/22 Plan of Care End Date 10/01/22 Therapeutic Interventions Therapeutic Interventions Gait Training,Home Exercise Program,Manual Therapy,Patient /Caregiver Education,Self-Care /Home Management,Soft Tissue Mobilization,Taping, Therapeutic Activities, Therapeutic Exercises Modalities Cold Pack/Ice Massage,Electric Stimulation,Hot Packs, Iontophoresis Next Visit Focus/Plan Next Note Type Treatment Note Next Visit Plan Assess response to last session, further manual techniques. Review new ther ex.
--- NOTE | 2022-09-25 16:28 | PT.OTN ---
Current Diagnoses Personal history of (healed) traumatic fracture (09/25/22) Physical Therapy Treatment Note PT-OP-A Visit Information Start: 05/22/22 08:12 Freq: Status: Active Protocol: Document 09/25/22 10:31 [facility] (Rec: 09/25/22 11:11 [facility] [id number]) Out-Patient Physical Therapy Visit Information Visit Information Visit Type Treatment Note Visit Start Time 10:31 Visit Stop Time 12:00 Total Visit Minutes 54 Visit Number 22 Evaluation Information Evaluation Date 05/22/22 Precautions Precautions WBAT PT-OP-B Current Condition Start: 05/22/22 08:12 Freq: Status: Active Protocol: Document 05/30/22 08:13 [facility] (Rec: 05/30/22 09:01 [facility] [id number]) Current Condition History of Current Condition Onset Date 04/11/22 Current Complaints weakness, difficulty with gait, LE swelling. History of Current Condition GLF 04/11/22 followed by ORIF 04/13/22 due to proximal right femur fracture. After discharge from hospital went to [facility] rehab. Discharged home approx 3 weeks ago. At this time patient partial weight-bearing at least until sees Dr. Shi tomorrow, using FWW. Denies significant pain. Has ramp into house, not using stairs. Uses w/c at times due to difficulty with prolonged standing on left foot. Min N/T under feet. HEP: standing march, knee flex right, heel/ toe raise left, squat, sit to stand. Wears heel lift in left shoe. Prior Treatments and Tests ORIF PT-OP-C Subjective Start: 05/22/22 08:12 Freq: Status: Active Protocol: Document 09/25/22 10:31 [facility] (Rec: 09/25/22 11:11 [facility] [id number]) OP-PT Subjective Patient Comments Patient Comments Fatigued, overdid on stairs yesterday. [place] last session very helpful with increased stretching and manual work; helped with dec knee and hip pain. Sore today PT-OP-G Mobility & Gait Start: 05/22/22 08:12 Freq: Status: Active Protocol: Document 05/22/22 08:12 [facility] (Rec: 05/22/22 08:58 [facility] [id number]) OP Mobility Evaluation Bed Mobility Rolling indep, usually on side for sleep with pillow between legs or supine pillow under knees OP Gait Assessment Gait Gait Assistance Required: Standby Assistance Assistive Devices Assistive Device Front Wheeled Walker Gait Deviations General Gait Pattern Antalgic,Decreased Stride Length,Decreased Feet Clearance,Flexed Trunk Factors Limiting Gait Function Factors Limiting Gait Function Decreased Activity Tolerance, Decreased Strength Stair Climbing Evaluation Evaluation Level of Assist On Stairs Independent Technique/Endurance Stair Climbing Technique Step to Step PT-OP-J Posture/Palpation/Skin Start: 05/22/22 08:12 Freq: Status: Active Protocol: Document 05/22/22 08:12 [facility] (Rec: 05/23/22 08:46 [facility] [id number]) Skin Assessment Incisional Assessment Incision Appearance/Comments well healed multiple incisions right thigh, poor scar mobility with thickening in many areas. PT-OP-K Range of Motion Start: 05/22/22 08:12 Freq: Status: Active Protocol: Document 05/22/22 08:12 [facility] (Rec: 05/23/22 08:46 [facility] [id number]) Hip Goniometric Range of Motion Hip right Flexion w/Knee Flexed 90 Straight Leg Raise 55 Extension 0 Abduction 25 Internal Rotation 20 External Rotation 30 Hip ROM Limitations Hip ROM Limitations Soft Tissue Tightness PT-OP-M Strength Start: 05/22/22 08:12 Freq: Status: Active Protocol: Document 05/22/22 08:12 [facility] (Rec: 05/23/22 08:46 [facility] [id number]) Knee Strength Knee Manual Muscle Testing Right Comments no MMT due to recent surgery; appears less than anti-gravity strength Left Comments WFL; no MMT due to recent surgery PT-OP-Q Treatments Start: 05/22/22 08:12 Freq: Status: Active Protocol: Document 09/25/22 10:31 [facility] (Rec: 09/25/22 11:11 [facility] [id number]) Therapeutic Exercises Supine Exercises windshield wiper Reps/Minutes 2x30 to left IT band stretch Reps/Minutes 2x30 HS stretch Reps/Minutes 2x30 butterfly stretch Reps/Minutes 2x30 Noah stretch Reps/Minutes 3x30 right, 2x30 left Comments manual cues for neutral alignment DLS Supine Exercise Name march, double leg lowering, bicycle Comments cues for neutral spine bridge Supine Exercise Name modified single leg Reps/Minutes 10x Comments minimal lift due to neck surgery, doctor recom, cues for opp leg glut Gait Training Gait Activity parallel bars Level of Assistance VC Surface firm Distance/Duration 10 ft x 2 Treatment Focus 100% WB Comments cued upright posture, gluteal activation, inc knee extension right, 1 hand support weight acceptance Manual Therapy Treatment Soft Tissue Mobilization IT band Mobilization Type Instrument Assisted,Myofascial Release,Strumming Intensity/Depth Moderate Body Position Hooklying piriformis, quads, glut med Mobilization Type Instrument Assisted,Myofascial Release,Strumming surgical scars Mobilization Type Instrument Assisted,Myofascial Release,Strumming Intensity/Depth Moderate Body Position Hooklying PT-OP-R Modalities Start: 05/22/22 08:12 Freq: Status: Active Protocol: Document 09/25/22 10:31 [facility] (Rec: 09/25/22 11:11 [facility] [id number]) Hot Pack/Cold Pack Treatment Hot Pack Location right hip add,quads,ITB Patient Position Supine Treatment Duration (minutes) 15 Patient Tolerance Good PT-OP-T Assessment and Plan Start: 05/22/22 08:12 Freq: Status: Active Protocol: Document 09/25/22 10:31 [facility] (Rec: 09/25/22 11:11 [facility] [id number]) Physical Therapy Assessment Goals Four Impairment lacking full knee extension right Short Term Goal (STG) Patient to be instructed in HEP for improving knee extension to support therapy activities 06/25/22: goal met STG Duration goal met Snf Goal (LTG) Achieve full knee extension actively for improved functional mobility 08/16/22: good goal progress 09/10/22: goal met LTG Duration goal met Three Impairment decreased scar mobility Short Term Goal (STG) Patient to be instructed in self massage of surgical scar to support PT tissue mobilization techniques 06/25/22: goal met STG Duration goal met Securities Dealer Goal (LTG) Improve scar mobility to WNL to allow full function of right LE 08/16/22: good goal progress 09/10/22: goal met LTG Duration goal met Two Impairment gait dysfunction Impairment antalgic gait, using FWW, step -to pattern on nstairs Snf Goal (LTG) Patient will be able to ambulate with least restrict device on all surfaces safely including with alternating pattern on stairs 06/25/22: good goal progress 08/16/22: patient ambulating with cane, some compensatory patterns persist, but improving 09/10/22: goal progress LTG Duration 10/01/22 One Impairment weakness Impairment right LE weakness Short Term Goal (STG) Patient to be instrsucted in HEP for purposes of LE strengthening 06/25/22: goal met, ongoing STG Duration goal met, ongoing Securities Dealer Goal (LTG) Patient will be independent and compliant with HEP and demonstrate 5/5 muscle strength right hip 08/16/22: right hip ab 3-/5, flex 3+/5, ext3-/5, ER 3+/5, IR 4-/5 09/10/22: goal progress but slow : hip ab 3/5, flex4-/5, ER 4-/ 5, IR 4/5, ext 3-/5 LTG Duration 10/01/22 Progress Towards Goals Progress Towards Goals Progressing Toward Goals Assessment Summary Assessment Can now do 10 sidelying hip abduction. Had difficulty doing Noah stretch at home due to height of bed so problem solved with patient. Increased manual techniques including stretching today with good tolerance. Physical Therapy Plan Frequency and Duration Frequency of Treatment 2x/Week Duration of treatment (weeks) 12 Plan of Care Start Date 08/20/22 Plan of Care End Date 10/01/22 Therapeutic Interventions Therapeutic Interventions Gait Training,Home Exercise Program,Manual Therapy,Patient /Caregiver Education,Self-Care /Home Management,Soft Tissue Mobilization,Taping, Therapeutic Activities, Therapeutic Exercises Modalities Cold Pack/Ice Massage,Electric Stimulation,Hot Packs, Iontophoresis Next Visit Focus/Plan Next Note Type Treatment Note Next Visit Plan Continue PT for LE strengthening, flexiblity, soft tissue mobilization. End with moist heat.
--- NOTE | 2022-10-01 13:17 | PT.OTN ---
Current Diagnoses Personal history of (healed) traumatic fracture (10/01/22) Physical Therapy Treatment Note PT-OP-A Visit Information Start: 05/22/22 08:12 Freq: Status: Active Protocol: Document 10/01/22 12:32 SAK (Rec: 10/01/22 13:16 [facility] [id number]) Out-Patient Physical Therapy Visit Information Visit Information Visit Type Treatment Note Visit Start Time 12:35 Visit Stop Time 13:15 Total Visit Minutes 40 Visit Number 23 Evaluation Information Evaluation Date 05/22/22 Precautions Precautions WBAT PT-OP-B Current Condition Start: 05/22/22 08:12 Freq: Status: Active Protocol: Document 10/01/22 12:32 SAK (Rec: 10/01/22 13:16 [facility] [id number]) Current Condition History of Current Condition Onset Date 04/11/22 Current Complaints weakness, difficulty with gait, LE swelling. History of Current Condition GLF 04/11/22 followed by ORIF 04/13/22 due to proximal right femur fracture. After discharge from hospital went to [facility] rehab. Discharged home approx 3 weeks ago. At this time patient partial weight-bearing at least until sees Dr. Shi tomorrow, using FWW. Denies significant pain. Has ramp into house, not using stairs. Uses w/c at times due to difficulty with prolonged standing on left foot. Min N/T under feet. HEP: standing march, knee flex right, heel/ toe raise left, squat, sit to stand. Wears heel lift in left shoe. Prior Treatments and Tests ORIF PT-OP-C Subjective Start: 05/22/22 08:12 Freq: Status: Active Protocol: Document 10/01/22 12:32 [facility] (Rec: 10/01/22 13:16 [facility] [id number]) OP-PT Subjective Patient Comments Patient Comments FEels becoming more aware of compensations with walking, continues to work to correct PT-OP-G Mobility & Gait Start: 05/22/22 08:12 Freq: Status: Active Protocol: Document 05/22/22 08:12 SAK (Rec: 05/22/22 08:58 [facility] [id number]) OP Mobility Evaluation Bed Mobility Rolling indep, usually on side for sleep with pillow between legs or supine pillow under knees OP Gait Assessment Gait Gait Assistance Required: Standby Assistance Assistive Devices Assistive Device Front Wheeled Walker Gait Deviations General Gait Pattern Antalgic,Decreased Stride Length,Decreased Feet Clearance,Flexed Trunk Factors Limiting Gait Function Factors Limiting Gait Function Decreased Activity Tolerance, Decreased Strength Stair Climbing Evaluation Evaluation Level of Assist On Stairs Independent Technique/Endurance Stair Climbing Technique Step to Step PT-OP-J Posture/Palpation/Skin Start: 05/22/22 08:12 Freq: Status: Active Protocol: Document 05/22/22 08:12 [facility] (Rec: 05/23/22 08:46 [facility] [id number]) Skin Assessment Incisional Assessment Incision Appearance/Comments well healed multiple incisions right thigh, poor scar mobility with thickening in many areas. PT-OP-K Range of Motion Start: 05/22/22 08:12 Freq: Status: Active Protocol: Document 05/22/22 08:12 [facility] (Rec: 05/23/22 08:46 [facility] [id number]) Hip Goniometric Range of Motion Hip right Flexion w/Knee Flexed 90 Straight Leg Raise 55 Extension 0 Abduction 25 Internal Rotation 20 External Rotation 30 Hip ROM Limitations Hip ROM Limitations Soft Tissue Tightness PT-OP-M Strength Start: 05/22/22 08:12 Freq: Status: Active Protocol: Document 05/22/22 08:12 [facility] (Rec: 05/23/22 08:46 [facility] [id number]) Knee Strength Knee Manual Muscle Testing Right Comments no MMT due to recent surgery; appears less than anti-gravity strength Left Comments WFL; no MMT due to recent surgery PT-OP-Q Treatments Start: 05/22/22 08:12 Freq: Status: Active Protocol: Document 10/01/22 12:32 [facility] (Rec: 10/01/22 13:16 [facility] [id number]) Gym Equipment Shuttle Recovery Unilateral Squats Resistance 50# Shuttle Recovery Platform Stable Reps/Time 10x2 Therapeutic Exercises Supine Exercises DLS Supine Exercise Name march, double leg lowering, bicycle Comments cues for neutral spine Sidelying Exercises hip abduction Side bilateral Reps/Minutes 10x Comments unable to lift full ROM, cues for LE alignment Standing Exercises lunge Comments mirror for visual feedback squat Standing Exercise Name chair squat Equipment Used mirror, Reps/Minutes 10x Comments 100% WB; cues for 50/50 b/t LE 's Therapeutic Activity Therapeutic Activity floor transfer Reps/Minutes 2x Gait Training Gait Activity parallel bars Description pre-gait, gait Level of Assistance VC Surface firm Distance/Duration 10 min Treatment Focus 100% WB Comments cued upright posture, gluteal activation, inc knee extension right, 1 hand support weight acceptance Manual Therapy Treatment Soft Tissue Mobilization IT band Mobilization Type Instrument Assisted,Myofascial Release,Strumming Intensity/Depth Moderate Body Position Hooklying piriformis, quads, glut med Mobilization Type Instrument Assisted,Myofascial Release,Strumming surgical scars Mobilization Type Instrument Assisted,Myofascial Release,Strumming Intensity/Depth Moderate Body Position Hooklying PT-OP-R Modalities Start: 05/22/22 08:12 Freq: Status: Active Protocol: Document 09/25/22 10:31 SAK (Rec: 09/25/22 11:11 [facility] [id number]) Hot Pack/Cold Pack Treatment Hot Pack Location right hip add,quads,ITB Patient Position Supine Treatment Duration (minutes) 15 Patient Tolerance Good PT-OP-T Assessment and Plan Start: 05/22/22 08:12 Freq: Status: Active Protocol: Document 10/01/22 12:32 [facility] (Rec: 10/01/22 13:16 [facility] [id number]) Physical Therapy Assessment Goals Four Impairment lacking full knee extension right Short Term Goal (STG) Patient to be instructed in HEP for improving knee extension to support therapy activities 06/25/22: goal met STG Duration goal met Oil Heater Installer Goal (LTG) Achieve full knee extension actively for improved functional mobility 08/16/22: good goal progress 09/10/22: goal met LTG Duration goal met Three Impairment decreased scar mobility Short Term Goal (STG) Patient to be instructed in self massage of surgical scar to support PT tissue mobilization techniques 06/25/22: goal met STG Duration goal met Assisted Goal (LTG) Improve scar mobility to WNL to allow full function of right LE 08/16/22: good goal progress 09/10/22: goal met LTG Duration goal met Two Impairment gait dysfunction Impairment antalgic gait, using FWW, step -to pattern on nstairs Assisted Goal (LTG) Patient will be able to ambulate with least restrict device on all surfaces safely including with alternating pattern on stairs 06/25/22: good goal progress 08/16/22: patient ambulating with cane, some compensatory patterns persist, but improving 09/10/22: goal progress LTG Duration 10/01/22 One Impairment weakness Impairment right LE weakness Short Term Goal (STG) Patient to be instrsucted in HEP for purposes of LE strengthening 06/25/22: goal met, ongoing STG Duration goal met, ongoing Oil Heater Installer Goal (LTG) Patient will be independent and compliant with HEP and demonstrate 5/5 muscle strength right hip 08/16/22: right hip ab 3-/5, flex 3+/5, ext3-/5, ER 3+/5, IR 4-/5 09/10/22: goal progress but slow : hip ab 3/5, flex4-/5, ER 4-/ 5, IR 4/5, ext 3-/5 LTG Duration 10/01/22 Assessment Summary Assessment Goals met, progressed to floor transfer practice today; able to do with 2 objects to hold onto; [place] practice at home indoors until feels comfortable and safe. Patient ready for discharge. Physical Therapy Plan Frequency and Duration Frequency of Treatment 2x/Week Duration of treatment (weeks) 12 Plan of Care Start Date 08/20/22 Plan of Care End Date 10/01/22 Therapeutic Interventions Therapeutic Interventions Gait Training,Home Exercise Program,Manual Therapy,Patient /Caregiver Education,Self-Care /Home Management,Soft Tissue Mobilization,Taping, Therapeutic Activities, Therapeutic Exercises Modalities Cold Pack/Ice Massage,Electric Stimulation,Hot Packs, Iontophoresis Discharge Physical Therapy Discharge Reasons Goals Met
--- NOTE | 2022-10-01 13:17 | PT.OPDS ---
Current Diagnoses Personal history of (healed) traumatic fracture (10/01/22) Visit Care Team Role Provider Type Lisa Shi MD Physician Specialty: Orthopedics Orthopedic Surgery Address: [address] [place] [address], [phone] Email: [email or web address] ASHWINI Meza Primary Care Provider Non-Staff Specialty: Family Practice Address: [address], [address] Email: Rochelle Ren MD Family Provider Physician Specialty: Family Practice Address: [facility], [facility] [place], [facility] Email: [email or web address] Kerrie Chawla PA-C Attending Provider [employer] Pile Driver Operator Referring Provider Specialty: Orthopedics Orthopedic Surgery Address: [address] [place] [address], [id number] Email: [email or web address] Visit Number Visit Number 23 Discharge Summary PT-OP-B Current Condition Start: 05/22/22 08:12 Freq: Status: Active Protocol: Document 10/01/22 12:32 [facility] (Rec: 10/01/22 13:16 [facility] [id number]) Current Condition History of Current Condition Onset Date 04/11/22 Current Complaints weakness, difficulty with gait, LE swelling. History of Current Condition GLF 04/11/22 followed by ORIF 04/13/22 due to proximal right femur fracture. After discharge from hospital went to [facility] rehab. Discharged home approx 3 weeks ago. At this time patient partial weight-bearing at least until sees Dr. Shi tomorrow, using FWW. Denies significant pain. Has ramp into house, not using stairs. Uses w/c at times due to difficulty with prolonged standing on left foot. Min N/T under feet. HEP: standing july, knee flex right, heel/ toe raise left, squat, sit to stand. Wears heel lift in left shoe. Prior Treatments and Tests ORIF PT-OP-C Subjective Start: 05/22/22 08:12 Freq: Status: Active Protocol: Document 10/01/22 12:32 SAK (Rec: 10/01/22 13:16 [facility] [id number]) OP-PT Subjective Patient Comments Patient Comments FEels becoming more aware of compensations with walking, continues to work to correct PT-OP-G Mobility & Gait Start: 05/22/22 08:12 Freq: Status: Active Protocol: Document 05/22/22 08:12 SAK (Rec: 05/22/22 08:58 [facility] [id number]) OP Mobility Evaluation Bed Mobility Rolling indep, usually on side for sleep with pillow between legs or supine pillow under knees OP Gait Assessment Gait Gait Assistance Required: Standby Assistance Assistive Devices Assistive Device Front Wheeled Walker Gait Deviations General Gait Pattern Antalgic,Decreased Stride Length,Decreased Feet Clearance,Flexed Trunk Factors Limiting Gait Function Factors Limiting Gait Function Decreased Activity Tolerance, Decreased Strength Stair Climbing Evaluation Evaluation Level of Assist On Stairs Independent Technique/Endurance Stair Climbing Technique Step to Step PT-OP-J Posture/Palpation/Skin Start: 05/22/22 08:12 Freq: Status: Active Protocol: Document 05/22/22 08:12 [facility] (Rec: 05/23/22 08:46 [facility] [id number]) Skin Assessment Incisional Assessment Incision Appearance/Comments well healed multiple incisions right thigh, poor scar mobility with thickening in many areas. PT-OP-K Range of Motion Start: 05/22/22 08:12 Freq: Status: Active Protocol: Document 05/22/22 08:12 [facility] (Rec: 05/23/22 08:46 [facility] [id number]) Hip Goniometric Range of Motion Hip right Flexion w/Knee Flexed 90 Straight Leg Raise 55 Extension 0 Abduction 25 Internal Rotation 20 External Rotation 30 Hip ROM Limitations Hip ROM Limitations Soft Tissue Tightness PT-OP-M Strength Start: 05/22/22 08:12 Freq: Status: Active Protocol: Document 05/22/22 08:12 [facility] (Rec: 05/23/22 08:46 [facility] [id number]) Knee Strength Knee Manual Muscle Testing Right Comments no MMT due to recent surgery; appears less than anti-gravity strength Left Comments WFL; no MMT due to recent surgery PT-OP-T Assessment and Plan Start: 05/22/22 08:12 Freq: Status: Active Protocol: Document 10/01/22 12:32 [facility] (Rec: 10/01/22 13:16 [facility] [id number]) Physical Therapy Assessment Goals Four Impairment lacking full knee extension right Short Term Goal (STG) Patient to be instructed in HEP for improving knee extension to support therapy activities 06/25/22: goal met STG Duration goal met Alf Goal (LTG) Achieve full knee extension actively for improved functional mobility 08/16/22: good goal progress 09/10/22: goal met LTG Duration goal met Three Impairment decreased scar mobility Short Term Goal (STG) Patient to be instructed in self massage of surgical scar to support PT tissue mobilization techniques 06/25/22: goal met STG Duration goal met Behavioral Assistant Goal (LTG) Improve scar mobility to WNL to allow full function of right LE 08/16/22: good goal progress 09/10/22: goal met LTG Duration goal met Two Impairment gait dysfunction Impairment antalgic gait, using FWW, step -to pattern on nstairs Behavioral Assistant Goal (LTG) Patient will be able to ambulate with least restrict device on all surfaces safely including with alternating pattern on stairs 06/25/22: good goal progress 08/16/22: patient ambulating with cane, some compensatory patterns persist, but improving 09/10/22: goal progress LTG Duration 10/01/22 One Impairment weakness Impairment right LE weakness Short Term Goal (STG) Patient to be instrsucted in HEP for purposes of LE strengthening 06/25/22: goal met, ongoing STG Duration goal met, ongoing Behavioral Assistant Goal (LTG) Patient will be independent and compliant with HEP and demonstrate 5/5 muscle strength right hip 08/16/22: right hip ab 3-/5, flex 3+/5, ext3-/5, ER 3+/5, IR 4-/5 09/10/22: goal progress but slow : hip ab 3/5, flex4-/5, ER 4-/ 5, IR 4/5, ext 3-/5 LTG Duration 10/01/22 Assessment Summary Assessment Goals met, progressed to floor transfer practice today; able to do with 2 objects to hold onto; [place] practice at home indoors until feels comfortable and safe. Patient ready for discharge. Physical Therapy Plan Frequency and Duration Frequency of Treatment 2x/Week Duration of treatment (weeks) 12 Plan of Care Start Date 08/20/22 Plan of Care End Date 10/01/22 Therapeutic Interventions Therapeutic Interventions Gait Training,Home Exercise Program,Manual Therapy,Patient /Caregiver Education,Self-Care /Home Management,Soft Tissue Mobilization,Taping, Therapeutic Activities, Therapeutic Exercises Modalities Cold Pack/Ice Massage,Electric Stimulation,Hot Packs, Iontophoresis Discharge Physical Therapy Discharge Reasons Goals Met
== END 2022-10-03 09:08 | disposition home or self-care (01) ==
LOC: PHYS 12:30
PROVIDERS: Absent Provider Orthopaedic Surgery; Family Provider Student in an Organized Health Care Education/Training Program; PCP Registered Nurse; Referring Provider Physician Assistant; Visit Provider Physician Assistant
DX: Z87.81 Personal history of (healed) traumatic fracture (principal)
CPT/HCPCS: 97010; 97110; 97112; 97116; 97140; 97162; 97530; 97535

== ENCOUNTER → 2022-10-19 08:02 | Outpatient (CLI) | payer MEDICARE, SELFPAY ==
[2022-04-12 01:05] VITALS: BMI 29.2
--- NOTE | 2022-10-19 | DI.RAD.S_ITS ---
PROCEDURE: XR LUMBAR SPINE 2-3V INDICATIONS: Spinal stenosis, lumbar region with neurogenic claudication TECHNIQUE: 3 views of the lumbar spine were acquired. COMPARISON: [facility], CT, CT ABDOMEN PELVIS WO/W CON, 10/13/2020, 14:23. [facility], CR, XR LUMBAR SPINE WITH OLBIQUES PLUS FLEXION EXTENSION, 12/23/2018, 11:30. [facility], CR, L-SPINE 2-3 VIEWS, 12/13/2011, 20:36. FINDINGS: Bones: 5 [id number]-[id number] vertebrae are present. Right convexity thoracolumbar spine centered at T12-L1. 5 mm retrolisthesis L1 on L2, 2 mm retrolisthesis L2 on L3. Mild compression deformity of L4, similar to slightly increased. Minimal wedging of L1, not substantially changed. Severe multilevel degenerative changes with disc height loss, endplate spurring, and facet arthropathy. Right hip arthroplasty. Left proximal femur fixation hardware. Soft tissues: Overlying bowel gas pattern is normal. Vascular calcifications are present. IMPRESSION: Multilevel degenerative changes of the lumbar spine. If symptoms persist, CT or MRI may be helpful for further evaluation. Dictated by: David Velasco M.D. on 10/19/2022 at 10:04 Approved by: David Velasco M.D. on 10/19/2022 at 10:14
== END ==
PROVIDERS: Family Provider Student in an Organized Health Care Education/Training Program; PCP Registered Nurse; Referring Provider Registered Nurse; Visit Provider Registered Nurse
DX: M47.816 Spondylosis without myelopathy or radiculopathy, lumbar region (principal); M48.062 Spinal stenosis, lumbar region with neurogenic claudication; N39.46 Mixed incontinence; N39.0 Urinary tract infection, site not specified
CPT/HCPCS: 72100; 87086

== ENCOUNTER → 2022-10-19 18:49 | Outpatient (ROUT) | payer MEDICARE, SELFPAY ==
[2022-04-12 01:05] VITALS: BMI 29.2
== END ==
PROVIDERS: Family Provider Student in an Organized Health Care Education/Training Program; PCP Registered Nurse; Visit Provider Registered Nurse
DX: N39.0 Urinary tract infection, site not specified (principal)
CPT/HCPCS: 87086

== ENCOUNTER 2023-01-12 14:47 | Emergency (ER) | payer MEDICARE, SELFPAY ==
[2022-04-12 01:05] VITALS: BMI 29.2
[2023-01-12] VITALS (24 sets, daily range): BP systolic 113–160; BP diastolic 56–74; PULSE 61–75; RESP 12–33; TEMP 37.1; O2SAT 94–99; BMI 28.3
--- NOTE | 2023-01-12 14:55 | DI.RAD.S_ITS ---
PROCEDURE: XR CHEST 1V INDICATIONS: chest pain TECHNIQUE: One view of the chest was acquired. COMPARISON: [facility], CR, XR CHEST 1V, 04/11/2022, 19:59. FINDINGS: Surgical changes and devices: None. Lungs and pleura: Lungs are clear. No pleural effusions or pneumothorax. Mediastinum: Mediastinal contours appear normal. Heart size is moderately enlarged. Atherosclerotic calcification of the aortic arch is noted. Bones and chest wall: No suspicious bony lesions. Age-appropriate bony degenerative changes are seen. Overlying soft tissues appear unremarkable. IMPRESSION: Moderate cardiomegaly. Clear lungs. Dictated by: Federico Pope M.D. on 01/12/2023 at 15:21 Approved by: Federico Pope M.D. on 01/12/2023 at 15:22
[2023-01-12 15:16] LABS: Add Manual Diff / Slide Review NO; Basophils Absolute Auto 100 /uL (0-100); Basophils Percent Auto 1.2 % (0-2); Eosinophils Absolute Auto 100 /uL (0-450); Eosinophils Percent Auto 2.1 % (2-4); Hematocrit 37.9 % (36-46); Hemoglobin 12.9 g/dL (12.0-16.0); Lymphocytes Absolute Auto 1200 /uL (1100-4500); Lymphocytes Percent Auto 17.7 % (25-40); Mean Corpuscular HGB Conc 33.9 % (30-36); Mean Corpuscular Hemoglobin 34.3 PG (26-34); Monocytes Absolute Auto 600 /uL (0-900); Monocytes Percent Auto 8.8 % (3-14); Neutrophils Absolute Auto 4700 /uL (1500-7000); Neutrophils Percent Auto 70.2 % (50-75); Platelet Count 194 X10^3/uL (150-400); Red Blood Cell Count 3.75 X10^6/uL (4.0-5.2); Red Cell Distribution Width 12.9 % (11.6-14.8); White Blood Cell Count 6.8 X10^3/uL (4.5-11.0)
[2023-01-12 15:22] LABS: INR 1.5 (0.9-1.3)
[2023-01-12 15:24] LABS: PTT Partial Thromboplastin Tim 38 SECONDS (26-36)
[2023-01-12 15:27] LABS: Alanine Aminotransferase 19 IU/L (<35); Albumin 3.8 g/dL (3.5-5.0); Albumin Globulin Ratio 1.1 (1.0-2.8); Alkaline Phosphatase 78 U/L (38-126); Aspartate Aminotransferase 27 IU/L (14-36); BUN Creatinine Ratio 25.7 (6-22); Bilirubin Total 0.6 mg/dL (0.2-1.3); Blood Urea Nitrogen 19 mg/dL (7-17); Calcium 8.8 mg/dL (8.4-10.2); Carbon Dioxide 28 mmol/L (22-32); Chloride 102 mmol/L (98-107); Creatine Kinase 51 U/L (30-135); Estimated Glomerular Filt Rate > 60 mL/min (>60); Globulin 3.6 g/dL (1.7-4.1); Glucose 137 mg/dL (80-110); HEMOLYSIS < 15 (0-50); Lipase 113 U/L (23-300); Magnesium 1.9 mg/dL (1.6-2.3); Potassium 3.6 mmol/L (3.4-5.1); Sodium 137 mmol/L (137-145); Total Protein 7.4 g/dL (6.3-8.2)
[2023-01-12 15:38] LABS: Troponin I < 0.012 ng/mL (0.01-0.034)
--- NOTE | 2023-01-12 16:00 | ED_ITS ---
HPI - Chest Pain <Leo Zavala DO - Last Filed: 01/13/23 10:04> General Chief Complaint: Chest Pain Stated Complaint: L/back pain, chest and jaw pain Time Seen by Provider: 01/12/23 15:08 Source: patient Mode of arrival: Ambulatory Limitations: no limitations History of Present Illness HPI narrative: 82-year-old female former smoker with history of hypertension, chronic AFib on anticoagulation presents with her in the chief complaint of pain in her left posterior shoulder which she admits has been present for quite some time but seems to be a bit more severe today. She denies any trauma or injury nor any overuse. She states it seems to get worse when she moves most of the time and tends to improve with rest. She does state that she came because she noticed some pain in the front of her chest over the course of the day. She denies shortness of breath, trauma or injury, history of blood clot or known cancer. She denies any exertional symptoms or exercise intolerance. She states she also has been having pain in the left side of her jaw that is worse when she chews and improves when she is not eating. Admittedly many of these symptoms are relatively chronic for her but the combination seems to be slightly different than something she has experienced and she wanted to be checked out Related Data Home Medications Medication Instructions Recorded Confirmed multivitamin (Multiple Vitamins 1 tab PO DAILY ##0 08/05/17 04/12/22 tablet) calcium citrate 250 mg PO BID 09/25/18 04/12/22 cholecalciferol (vitamin D3) 50 2,000 unit PO BID 09/25/18 04/12/22 mcg (2,000 unit) capsule fluticasone propionate 50 2 spray intranasal DAILY PRN Nasal 11/10/18 04/12/22 mcg/actuation nasal Congestion spray,suspension furosemide 20 mg tablet (Lasix) 20 mg PO PRN PRN Edema, fluid 11/10/18 04/12/22 retention warfarin 5 mg tablet 7.5 mg PO DAILY 11/29/20 04/12/22 ascorbic acid (vitamin C) See Rx Instructions .Route .COMPLEX 12/14/20 04/12/22 cranberry extract See Rx Instructions .Route .COMPLEX 12/14/20 04/12/22 omega-3 fatty acids See Rx Instructions .Route .COMPLEX 04/12/22 04/12/22 Previous Rx's Medication Instructions Recorded carvedilol 12.5 mg tablet (Coreg) 12.5 mg PO BID #180 tabs 07/14/19 losartan 25 mg tablet 25 mg PO DAILY #90 tabs 11/24/19 estradiol 0.01% (0.1 mg/gram) 1 g vaginal 2XW #42.5 grams 11/07/21 vaginal cream oxycodone 5 mg tablet 5 mg PO Q3HR PRN Pain, Mild (1-3) 04/14/22 #60 tabs polyethylene glycol 3350 17 gram 17 gm PO DAILY #20 ea 04/14/22 oral powder packet oxycodone 5 mg tablet 5 mg PO Q4H PRN pain #30 tabs 04/15/22 Allergies Allergy/AdvReac Type Severity Reaction Status Date / Time acetaminophen Allergy Mild UPSET Verified 01/12/23 14:50 STOMACH digoxin Allergy Mild SWELLING Verified 01/12/23 14:50 LOWER EXTRMITIES hydromorphone Allergy Mild N/V Verified 01/12/23 14:50 adhesive Allergy Unknown SENSITVE Verified 01/12/23 14:50 TO TAPE latex Allergy Rash Verified 01/12/23 14:50 nitrofurantoin Allergy Verified 01/12/23 14:50 [From Macrobid] phenytoin Allergy Verified 01/12/23 14:50 ibuprofen AdvReac Mild UNABLE TO Verified 01/12/23 14:50 TAKE DUE TO COUMADIN meperidine AdvReac Mild GI UPSET Verified 01/12/23 14:50 WITH VOMITING xylitol AdvReac Mild diarrhea Verified 01/12/23 14:50 and upset stomach Review of Systems <Leo Zavala, DO - Last Filed: 01/13/23 10:04> Review of Systems Narrative: GENERAL: Denies chills, fatigue, malaise, fever, sweats. HEENT: Denies sinus pain, ear pain, sore throat, difficulty swallowing, dizziness. RESPIRATORY: See HPI CARDIOVASCULAR: See HPI GASTROINTESTINAL: Denies nausea, vomiting, abdominal pain, diarrhea, constipation, melena. : Denies dysuria, frequency, incontinence, hematuria, urinary retention. MUSCULOSKELETAL: See HPI SKIN: Denies rash, skin lesions, or other NEUROLOGIC: Denies weakness, headache, numbness, change in speech, confusion, seizures, incoordination. PSYCHIATRIC: No concerning psychosocial issues. 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) Fractures (10/08/07) Hayfever (1959) Heart failure, systolic History of UTI Lichen sclerosus et atrophicus (2011) Measles (1949) Microscopic hematuria Mitral stenosis Mixed incontinence Osteoarthritis (1996) Osteopenia Osteoporosis Postmenopausal atrophic vaginitis Valvular heart disease Surgical History Anesthesia History of carpal tunnel repair (1979) History of carpal tunnel repair (03/23/04) History of cataract removal with insertion of prosthetic lens (01/02/12) History of cataract removal with insertion of prosthetic lens (12/19/11) History of hip replacement (05/08/10) History of hip surgery (05/16/08) History of hip surgery (10/08/07) History of incision and drainage (10/03/18) History of knee replacement (02/11/12) History of knee replacement (07/19/08) History of nasal surgery (10/03/11) History of orthopedic surgery (10/17/09) Periprosthetic fracture around other internal prosthetic joint, initial encounter Status post vaginal hysterectomy (1974) Family History Father Family history of UT (myocardial infarction) Heart disease Congestive heart failure Mother Cancer Myeloma Necrotizing fasciitis Brother MVA (motor vehicle accident) Sister No problems noted. Daughter No problems noted. Son No problems noted. Social History marital status: number of children: 2 household members: spouse occupational status: previously employed Smoking Status: Former smoker Tobacco: How many years used: 10 alcohol intake: current caffeine: Yes Smoking Status: Former smoker alcohol intake frequency: a few times a week Substance Use Type: does not use Exam <Leo Zavala DO - Last Filed: 01/13/23 10:04> Narrative Exam Narrative: GENERAL: [82] year old patient appears stated age. Well-developed patient, in mild distress. HEAD: Atraumatic. Normocephalic. EYES: Pupils equal round and reactive. Extraocular motions intact. No scleral icterus. No injection or drainage. ENT: Nose without bleeding, purulent drainage. Throat without erythema, tonsillar hypertrophy or exudate. Airway patent. NECK: Trachea midline. Non tender CARDIOVASCULAR: Regular rate and rhythm without murmurs, gallops, or rubs. RESPIRATORY: Clear to auscultation. Breath sounds equal bilaterally. No wheezes, rales, or rhonchi. GASTROINTESTINAL: Abdomen soft, non-tender, nondistended. EXTREMITIES: No edema or joint tenderness. Reproducible pain on posterior shoulder BACK: Nontender without deformity or crepitance. No flank tenderness. NEURO: AOx3. SKIN: No rash or erythema of visible areas Initial Vital Signs Initial Vital Signs: Vital Signs Temperature 98.7 F 01/12/23 14:50 Pulse Rate 73 01/12/23 14:50 Respiratory Rate 16 01/12/23 14:50 Blood Pressure 128/59 L 01/12/23 14:50 Pulse Oximetry 98 01/12/23 14:50 Oxygen Delivery Method Room Air 01/12/23 14:50 <DO Annie Huff Last Filed: 01/13/23 04:28> Initial Vital Signs Initial Vital Signs: Vital Signs Temperature 98.7 F 01/12/23 14:50 Pulse Rate 73 01/12/23 14:50 Respiratory Rate 16 01/12/23 14:50 Blood Pressure 128/59 L 01/12/23 14:50 Pulse Oximetry 98 01/12/23 14:50 Oxygen Delivery Method Room Air 01/12/23 14:50 Scores <DO Annie Farley Last Filed: 01/13/23 10:04> HEART Score Heart Score history: Slightly Suspicious Heart Score EKG: Non-Specific repolarization disturbance Heart Score Age: > or = 65 years old Heart Score risk factors: 1-2 risk factors Heart Score troponin: < or = to normal limit Heart Score Total: 4 <DO Annie Huff Last Filed: 01/13/23 04:28> HEART Score Heart Score Total: 4 Course <DO Annie Farley Filed: 01/13/23 10:04> Orders Ordered: Discontinued Medications Aspirin (Aspirin 81 Mg Chew Tab) 324 mg PO NOW ONE Stop: 01/12/23 14:56 Last Admin: 01/12/23 16:23 Dose: 324 mg Documented By: BHARGAVI Nitroglycerin (Nitroglycerin 0.4 Mg Sl Tab) 0.4 mg SL [id number] PRN PRN Reason: Chest Pain Last Admin: 01/12/23 16:46 Dose: 0.4 mg Documented By: AMY Vital Signs Vital signs: Vital Signs - 8 hr 01/12/23 14:50 01/12/23 16:15 01/12/23 16:26 Temperature 98.7 F Pulse Rate 73 67 71 Respiratory Rate 16 28 H Blood Pressure 128/59 L 118/58 L Pulse Oximetry 98 95 Oxygen Delivery Method Room Air Room Air 01/12/23 16:27 01/12/23 16:27 01/12/23 16:30 Temperature Pulse Rate 74 69 Respiratory Rate 21 22 Blood Pressure 160/74 H Pulse Oximetry 99 97 Oxygen Delivery Method 01/12/23 16:46 01/12/23 16:45 01/12/23 16:45 Temperature Pulse Rate 73 71 Respiratory Rate 18 Blood Pressure 154/73 H 154/73 H Pulse Oximetry 97 Oxygen Delivery Method 01/12/23 16:50 01/12/23 16:50 01/12/23 16:55 Temperature Pulse Rate 71 Respiratory Rate 33 H Blood Pressure 134/63 121/61 Pulse Oximetry 95 Oxygen Delivery Method 01/12/23 16:55 01/12/23 17:00 01/12/23 17:00 Temperature Pulse Rate 66 63 Respiratory Rate 32 H 17 Blood Pressure 113/58 L Pulse Oximetry 94 97 Oxygen Delivery Method 01/12/23 17:05 01/12/23 17:05 01/12/23 17:10 Temperature Pulse Rate 64 Respiratory Rate 12 Blood Pressure 115/69 126/60 Pulse Oximetry 94 Oxygen Delivery Method 01/12/23 17:10 01/12/23 17:15 01/12/23 17:15 Temperature Pulse Rate 68 65 Respiratory Rate 19 23 Blood Pressure 125/60 Pulse Oximetry 95 94 Oxygen Delivery Method 01/12/23 17:20 01/12/23 17:20 01/12/23 17:25 Temperature Pulse Rate 66 Respiratory Rate 24 Blood Pressure 119/58 L 120/58 L Pulse Oximetry 95 Oxygen Delivery Method 01/12/23 17:25 01/12/23 17:30 01/12/23 17:30 Temperature Pulse Rate 66 61 Respiratory Rate 20 13 Blood Pressure 113/58 L Pulse Oximetry 94 94 Oxygen Delivery Method 01/12/23 17:35 01/12/23 17:35 01/12/23 17:40 Temperature Pulse Rate 67 64 Respiratory Rate 28 H 23 Blood Pressure 117/60 Pulse Oximetry 96 95 Oxygen Delivery Method Room Air 01/12/23 17:40 Temperature Pulse Rate Respiratory Rate Blood Pressure 118/59 L Pulse Oximetry Oxygen Delivery Method <Gina Ann, - Last Filed: 01/13/23 04:28> Orders Ordered: Discontinued Medications Aspirin (Aspirin 81 Mg Chew Tab) 324 mg PO NOW ONE Stop: 01/12/23 14:56 Last Admin: 01/12/23 16:23 Dose: 324 mg Documented By: BHARGAVI Nitroglycerin (Nitroglycerin 0.4 Mg Sl Tab) 0.4 mg SL [id number] PRN PRN Reason: Chest Pain Last Admin: 01/12/23 16:46 Dose: 0.4 mg Documented By: AMY Vital Signs Vital signs: Vital Signs - 8 hr 01/12/23 14:50 01/12/23 16:15 01/12/23 16:26 Temperature 98.7 F Pulse Rate 73 67 71 Respiratory Rate 16 28 H Blood Pressure 128/59 L 118/58 L Pulse Oximetry 98 95 Oxygen Delivery Method Room Air Room Air 01/12/23 16:27 01/12/23 16:27 01/12/23 16:30 Temperature Pulse Rate 74 69 Respiratory Rate 21 22 Blood Pressure 160/74 H Pulse Oximetry 99 97 Oxygen Delivery Method 01/12/23 16:46 01/12/23 16:45 01/12/23 16:45 Temperature Pulse Rate 73 71 Respiratory Rate 18 Blood Pressure 154/73 H 154/73 H Pulse Oximetry 97 Oxygen Delivery Method 01/12/23 16:50 01/12/23 16:50 01/12/23 16:55 Temperature Pulse Rate 71 Respiratory Rate 33 H Blood Pressure 134/63 121/61 Pulse Oximetry 95 Oxygen Delivery Method 01/12/23 16:55 01/12/23 17:00 01/12/23 17:00 Temperature Pulse Rate 66 63 Respiratory Rate 32 H 17 Blood Pressure 113/58 L Pulse Oximetry 94 97 Oxygen Delivery Method 01/12/23 17:05 01/12/23 17:05 01/12/23 17:10 Temperature Pulse Rate 64 Respiratory Rate 12 Blood Pressure 115/69 126/60 Pulse Oximetry 94 Oxygen Delivery Method 01/12/23 17:10 01/12/23 17:15 01/12/23 17:15 Temperature Pulse Rate 68 65 Respiratory Rate 19 23 Blood Pressure 125/60 Pulse Oximetry 95 94 Oxygen Delivery Method 01/12/23 17:20 01/12/23 17:20 01/12/23 17:25 Temperature Pulse Rate 66 Respiratory Rate 24 Blood Pressure 119/58 L 120/58 L Pulse Oximetry 95 Oxygen Delivery Method 01/12/23 17:25 01/12/23 17:30 01/12/23 17:30 Temperature Pulse Rate 66 61 Respiratory Rate 20 13 Blood Pressure 113/58 L Pulse Oximetry 94 94 Oxygen Delivery Method 01/12/23 17:35 01/12/23 17:35 01/12/23 17:40 Temperature Pulse Rate 67 64 Respiratory Rate 28 H 23 Blood Pressure 117/60 Pulse Oximetry 96 95 Oxygen Delivery Method Room Air 01/12/23 17:40 Temperature Pulse Rate Respiratory Rate Blood Pressure 118/59 L Pulse Oximetry Oxygen Delivery Method MDM - Chest Pain <Leo Zavala, DO - Last Filed: 01/13/23 10:04> Lab Data 01/12/23 15:03 01/12/23 15:03 Labs: Lab Results 01/12/23 01/12/23 01/12/23 Range/Units 15:03 15:03 15:03 WBC 6.8 (4.5-11.0) X10^3/uL RBC 3.75 L (4.0-5.2) X10^6/uL Hgb 12.9 (12.0-16.0) g/dL Hct 37.9 (36-46) % MCV 101.0 H (80-100) fL MCH 34.3 H (26-34) PG MCHC 33.9 (30-36) % RDW 12.9 (11.6-14.8) % Plt Count 194 (150-400) X10^3/uL Neut % (Auto) 70.2 (50-75) % Lymph % (Auto) 17.7 L (25-40) % Johnson % (Auto) 8.8 (3-14) % Eos % (Auto) 2.1 (2-4) % Baso % (Auto) 1.2 (0-2) % Neut # (Auto) 4700 (4582-2512) /uL Lymph # (Auto) 1200 (3397-1573) /uL Johnson # (Auto) 600 (0-900) /uL Eos # (Auto) 100 (0-450) /uL Baso # (Auto) 100 (0-100) /uL PT 17.0 H (10.1-12.7) SECONDS INR 1.5 H (0.9-1.3) APTT 38 H (26-36) SECONDS Sodium 137 (137-145) mmol/L Potassium 3.6 (3.4-5.1) mmol/L Chloride 102 (98-107) mmol/L Carbon Dioxide 28 (22-32) mmol/L BUN 19 H (7-17) mg/dL Creatinine 0.74 (0.52-1.04) mg/dL Estimated GFR > 60 (>60) mL/min BUN/Creatinine Ratio 25.7 H (6-22) Glucose 137 H (80-110) mg/dL Calcium 8.8 (8.4-10.2) mg/dL Magnesium 1.9 (1.6-2.3) mg/dL Total Bilirubin 0.6 (0.2-1.3) mg/dL AST 27 (14-36) IU/L ALT 19 (<35) IU/L Alkaline Phosphatase 78 (38-126) U/L Total Creatine Kinase 51 (30-135) U/L Troponin I < 0.012 (0.01-0.034) ng/mL Total Protein 7.4 (6.3-8.2) g/dL Albumin 3.8 (3.5-5.0) g/dL Globulin 3.6 (1.7-4.1) g/dL Albumin/Globulin Ratio 1.1 (1.0-2.8) Lipase 113 (23-300) U/L Urine RBC (0-5/HPF) Urine WBC (0-5/HPF) Ur Squamous Epith Cells (0-5/HPF) Urine Bacteria (None) Ur Culture Indicated? 01/12/23 01/12/23 Range/Units 16:22 17:50 WBC (4.5-11.0) X10^3/uL RBC (4.0-5.2) X10^6/uL Hgb (12.0-16.0) g/dL Hct (36-46) % MCV (80-100) fL MCH (26-34) PG MCHC (30-36) % RDW (11.6-14.8) % Plt Count (150-400) X10^3/uL Neut % (Auto) (50-75) % Lymph % (Auto) (25-40) % Johnson % (Auto) (3-14) % Eos % (Auto) (2-4) % Baso % (Auto) (0-2) % Neut # (Auto) (7766-8714) /uL Lymph # (Auto) (8469-2597) /uL Johnson # (Auto) (0-900) /uL Eos # (Auto) (0-450) /uL Baso # (Auto) (0-100) /uL PT (10.1-12.7) SECONDS INR (0.9-1.3) APTT (26-36) SECONDS Sodium (137-145) mmol/L Potassium (3.4-5.1) mmol/L Chloride (98-107) mmol/L Carbon Dioxide (22-32) mmol/L BUN (7-17) mg/dL Creatinine (0.52-1.04) mg/dL Estimated GFR (>60) mL/min BUN/Creatinine Ratio (6-22) Glucose (80-110) mg/dL Calcium (8.4-10.2) mg/dL Magnesium (1.6-2.3) mg/dL Total Bilirubin (0.2-1.3) mg/dL AST (14-36) IU/L ALT (<35) IU/L Alkaline Phosphatase (38-126) U/L Total Creatine Kinase 41 (30-135) U/L Troponin I < 0.012 (0.01-0.034) ng/mL Total Protein (6.3-8.2) g/dL Albumin (3.5-5.0) g/dL Globulin (1.7-4.1) g/dL Albumin/Globulin Ratio (1.0-2.8) Lipase (23-300) U/L Urine RBC 5-10/hpf H (0-5/HPF) Urine WBC 10-30/hpf H (0-5/HPF) Ur Squamous Epith Cells 1-5 /hpf (0-5/HPF) Urine Bacteria Few (2-10) H (None) Ur Culture Indicated? Specimen cultured Urine Dip Bedside Urine Glucose Negative Bedside Urine Bilirubin - Negative Bedside Urine Ketone - Negative Urine Specific [place] 1.025 Bedside Urine Occult Blood ++ Bedside Urine pH 6.0 Bedside Urine Protein +/- 15 Bedside Urine Urobilinogen - Negative Bedside Urine Nitrite - Negative Bedside Urine Leukocytes + 70 Esterase MDM Narrative Medical decision making narrative: CC: 82-year-old female with chest and back pain Complicating co-morbidities: Age, AFib, anticoagulant Data collected from: Patient Medical records reviewed: Prior notes reviewed in our EMR Differential considered, but not limited to: Cardiac ischemia versus inflammatory process versus dissection versus other Exam documented above, pertinent findings include: Resting comfortably, heart rate slightly irregular, lungs clear, reproducible left posterior shoulder pain on palpation Lab Test results independently reviewed as above. Pertinent findings: No leukocytosis or left shift, no signs of anemia, troponin x2 negative Independently reviewed EKG as above Imaging studies independently reviewed: CT angio of chest, abdomen and pelvis without signs of dissection, pleural effusion, pneumonia, aortic aneurysm or other Treatments: Aspirin and nitro Re-evaluations: Patient asymptomatic for majority of visit Discussion: Patient with various pains including episodes of chest, jaw and mike k. Admittedly many are likely chronic but she became concerned today and wanted to be checked out. History and physical exam are reassuring and patient is asymptomatic for almost entirety of visit. Multiple diagnoses considered as noted above. Cardiac ischemia thought unlikely given lack of exertional symptoms, exercise intolerance, ischemic EKG changes and troponin negative x2. Vascular abnormality such as pulmonary embolism, dissection and AAA whole considered but thought unlikely given lack of meaningful findings on imaging. Pneumonia considered but thought unlikely given history and physical and lack of findings imaging. Musculoskeletal source considered highly likely given reprod ucibility and chronic nature. No signs of an infectious process. Patient given reassurance, encouraged to follow closely with her primary care provider and discussed return precautions Disposition: see below, along with detailed discharge instructions that have been reviewed with patient as well as indications for ED re-evaluation and additional outpatient follow up <Gina Ann, DO - Last Filed: 01/13/23 04:28> Lab Data Labs: Lab Results 01/12/23 01/12/23 01/12/23 Range/Units 15:03 15:03 15:03 WBC 6.8 (4.5-11.0) X10^3/uL RBC 3.75 L (4.0-5.2) X10^6/uL Hgb 12.9 (12.0-16.0) g/dL Hct 37.9 (36-46) % MCV 101.0 H (80-100) fL MCH 34.3 H (26-34) PG MCHC 33.9 (30-36) % RDW 12.9 (11.6-14.8) % Plt Count 194 (150-400) X10^3/uL Neut % (Auto) 70.2 (50-75) % Lymph % (Auto) 17.7 L (25-40) % Johnson % (Auto) 8.8 (3-14) % Eos % (Auto) 2.1 (2-4) % Baso % (Auto) 1.2 (0-2) % Neut # (Auto) 4700 (4300-6237) /uL Lymph # (Auto) 1200 (9128-8880) /uL Johnson # (Auto) 600 (0-900) /uL Eos # (Auto) 100 (0-450) /uL Baso # (Auto) 100 (0-100) /uL PT 17.0 H (10.1-12.7) SECONDS INR 1.5 H (0.9-1.3) APTT 38 H (26-36) SECONDS Sodium 137 (137-145) mmol/L Potassium 3.6 (3.4-5.1) mmol/L Chloride 102 (98-107) mmol/L Carbon Dioxide 28 (22-32) mmol/L BUN 19 H (7-17) mg/dL Creatinine 0.74 (0.52-1.04) mg/dL Estimated GFR > 60 (>60) mL/min BUN/Creatinine Ratio 25.7 H (6-22) Glucose 137 H (80-110) mg/dL Calcium 8.8 (8.4-10.2) mg/dL Magnesium 1.9 (1.6-2.3) mg/dL Total Bilirubin 0.6 (0.2-1.3) mg/dL AST 27 (14-36) IU/L ALT 19 (<35) IU/L Alkaline Phosphatase 78 (38-126) U/L Total Creatine Kinase 51 (30-135) U/L Troponin I < 0.012 (0.01-0.034) ng/mL Total Protein 7.4 (6.3-8.2) g/dL Albumin 3.8 (3.5-5.0) g/dL Globulin 3.6 (1.7-4.1) g/dL Albumin/Globulin Ratio 1.1 (1.0-2.8) Lipase 113 (23-300) U/L Urine RBC (0-5/HPF) Urine WBC (0-5/HPF) Ur Squamous Epith Cells (0-5/HPF) Urine Bacteria (None) Ur Culture Indicated? 01/12/23 01/12/23 Range/Units 16:22 17:50 WBC (4.5-11.0) X10^3/uL RBC (4.0-5.2) X10^6/uL Hgb (12.0-16.0) g/dL Hct (36-46) % MCV (80-100) fL MCH (26-34) PG MCHC (30-36) % RDW (11.6-14.8) % Plt Count (150-400) X10^3/uL Neut % (Auto) (50-75) % Lymph % (Auto) (25-40) % Johnson % (Auto) (3-14) % Eos % (Auto) (2-4) % Baso % (Auto) (0-2) % Neut # (Auto) (9886-0600) /uL Lymph # (Auto) (4974-4092) /uL Johnson # (Auto) (0-900) /uL Eos # (Auto) (0-450) /uL Baso # (Auto) (0-100) /uL PT (10.1-12.7) SECONDS INR (0.9-1.3) APTT (26-36) SECONDS Sodium (137-145) mmol/L Potassium (3.4-5.1) mmol/L Chloride (98-107) mmol/L Carbon Dioxide (22-32) mmol/L BUN (7-17) mg/dL Creatinine (0.52-1.04) mg/dL Estimated GFR (>60) mL/min BUN/Creatinine Ratio (6-22) Glucose (80-110) mg/dL Calcium (8.4-10.2) mg/dL Magnesium (1.6-2.3) mg/dL Total Bilirubin (0.2-1.3) mg/dL AST (14-36) IU/L ALT (<35) IU/L Alkaline Phosphatase (38-126) U/L Total Creatine Kinase 41 (30-135) U/L Troponin I < 0.012 (0.01-0.034) ng/mL Total Protein (6.3-8.2) g/dL Albumin (3.5-5.0) g/dL Globulin (1.7-4.1) g/dL Albumin/Globulin Ratio (1.0-2.8) Lipase (23-300) U/L Urine RBC 5-10/hpf H (0-5/HPF) Urine WBC 10-30/hpf H (0-5/HPF) Ur Squamous Epith Cells 1-5 /hpf (0-5/HPF) Urine Bacteria Few (2-10) H (None) Ur Culture Indicated? Specimen cultured Urine Dip Bedside Urine Glucose Negative Bedside Urine Bilirubin - Negative Bedside Urine Ketone - Negative Urine Specific [place] 1.025 Bedside Urine Occult Blood ++ Bedside Urine pH 6.0 Bedside Urine Protein +/- 15 Bedside Urine Urobilinogen - Negative Bedside Urine Nitrite - Negative Bedside Urine Leukocytes + 70 Esterase Discharge Plan Departure Patient Disposition: Home Clinical Impression: Atypical chest pain, Back pain Instructions: DI for Atypical Chest Pain Activity Restrictions/Additional Instructions: *You have been diagnosed with [atypical chest pain and back pain. As we discussed your history and physical exam are reassuring, labs show no significant abnormalities nor do EKGs. The CT scan shows no evidence of blood clot, or problem with your aorta. *What to do: *Please continue to take your regular medications as directed. [ ] New medication prescriptions sent to your pharmacy: [ ] [ ] New medication written as a paper prescription [ ] No new medications given *Please follow up with your primary care provider in 2-3 days, call for an appointment. Let them know you were seen in the Emergency Department and that we ask that you be seen in follow up. We will electronically transmit a record of today's note if your PCP is in our system *If you do not have a primary care provider please contact the [facility] Resource line at [phone]. They will ask some questions about your medical history and help get you set up with a doctor in the community. *Return to Emergency Department if you should have any new, worsening or concerning symptoms, such as [fever greater than 101 F, shaking chills, worsening pain, persistent vomiting or other bothersome symptoms] Prescriptions: No Action multivitamin [Multiple Vitamins] 1 EACH tablet 1 tab PO DAILY Qty: 0 carvedilol [Coreg] 12.5 mg tablet 12.5 mg PO BID Qty: 180 3RF losartan 25 mg tablet 25 mg PO DAILY Qty: 90 3RF estradiol 0.01 % (0.1 mg/gram) cream 1 g vaginal 2XW Qty: 42.5 11RF calcium citrate 250 mg calcium tablet 250 mg PO BID cholecalciferol (vitamin D3) 2,000 unit capsule 2,000 unit PO BID fluticasone propionate 50 mcg/actuation spray,suspension 2 spray NASAL DAILY PRN (Reason: Nasal Congestion) furosemide [Lasix] 20 mg tablet 20 mg PO PRN PRN (Reason: Edema, fluid retention) warfarin 5 mg tablet 7.5 mg PO DAILY omega-3 fatty acids Capsule See Rx Instructions .ROUTE .COMPLEX Rx Instructions: Take as directed polyethylene glycol 3350 17 gram Powder In Packet 17 gm PO DAILY Qty: 20 0RF oxycodone 5 mg Tablet 5 mg PO Q3HR PRN (Reason: Pain, Mild (1-3)) Qty: 60 0RF oxycodone 5 mg tablet 5 mg PO Q4H PRN (Reason: pain) Qty: 30 0RF cranberry extract See Rx Instructions .ROUTE .COMPLEX Rx Instructions: Take as directed ascorbic acid (vitamin C) See Rx Instructions .ROUTE .COMPLEX Rx Instructions: Take as directed Referrals: Roxana Hollins, [employer] [Primary Care Provider] - Stand Alone Forms: Patient Portal/API <Gina Ann DO - Last Filed: 01/13/23 04:28> Cosign ED Attending Cosvinnyature Attestation: I did not see this patient here in the department, chart signed for administrative purposes only. Patient was seen and dispositioned entirety by Dr. Zavala.
--- NOTE | 2023-01-12 16:12 | DI.CT.S_ITS ---
PROCEDURE: CT ANGIO CHEST ABDOMEN PELVIS INDICATIONS: chest pain, back pain, shoulder, jaw TECHNIQUE: Precontrast 5 mm thick sections acquired from the lung apices to the iliac crests. After the administration of intravenous contrast, 2.5 mm thick sections again acquired from the lung apices to the iliac crests. Maximum intensity projection (MIP) oblique sagittal and coronal reformats were then acquired. For radiation dose reduction, the following was used: automated exposure control. COMPARISON: [facility], CT, CT ABDOMEN PELVIS WO/W CON, 10/13/2020, 14:23. [facility], CR, XR CHEST 1V, 01/12/2023, 15:08. [facility], CT, CT CHEST WITH CONTRAST, 12/12/2021, 9:22. FINDINGS: Image quality: There is artifact associated with the metallic hardware. AORTA: On precontrast imaging, no hyperdense mural hematomas can be seen. The thoracic aorta demonstrates normal caliber, without aneurysm or stenosis. The abdominal aorta demonstrates atherosclerotic irregularity, without aneurysm or stenosis. No findings of dissection can be seen. CHEST: Lungs and pleura: No acute airspace opacities. No pleural effusions or pneumothorax. Central and peripheral airways are patent and normal in caliber. Mediastinum: Heart size is moderately enlarged. No pericardial effusion. No mediastinal or hilar adenopathy by size criteria. Central pulmonary arteries are normal in size. Esophagus is normal in caliber. No hiatal hernias. Bones and chest wall: No axillary adenopathy by size criteria. Thyroid gland has been removed . No suspicious bony lesions. No vertebral body compression fractures. ABDOMEN: Vasculature: Celiac trunk and mesenteric arteries are patent. Renal arteries are also patent. Solid organs: Liver is normal in size and enhancement. Gallbladder demonstrates no significant abnormality. Biliary system is non dilated. Pancreas enhances normally. Spleen is normal in size and enhancement. No adrenal nodules. Both kidneys are normal in size and enhancement, without hydronephrosis. Peritoneum and bowel: No free fluid or air. Bowel loops are normal in caliber and wall thickness. Nodes and vessels: No retroperitoneal or mesenteric adenopathy by size criteria. Inferior vena cava is normal in morphology. Miscellaneous: No ventral hernias. PELVIS: Genitourinary: Bladder wall thickness is normal. This patient is status post hysterectomy. No adnexal masses are seen. Miscellaneous: No inguinal hernias. There is a mildly enlarged right groin lymph node seen that measures 2 x 12 mm, which is decreased in size compared to the prior. No ventral hernias. Bones: No suspicious bony lesions. No acute appearing vertebral body compression fractures moderate dextroconvex thoracolumbar scoliosis is seen. Age-appropriate bony degenerative changes are seen. Right hip arthroplasty hardware is seen, with associated streak artifact. There is left proximal femur hardware. IMPRESSION: No findings of aortic dissection or aneurysm. There is moderate cardiomegaly. No significant pulmonary abnormality is seen. Mildly enlarged right groin lymph node, which is slightly decreased in size compared to the prior. Additional findings: Thyroidectomy Hysterectomy Dextroconvex thoracolumbar scoliosis Right hip arthroplasty hardware Left proximal femur hardware Dictated by: Federico Pope M.D. on 01/12/2023 at 16:07 Approved by: Federico Pope M.D. on 01/12/2023 at 16:12
[2023-01-12] MEDS: ASPIRIN 81 MG CHEW TAB 324 MG PO (16:23)
[2023-01-12] MEDS: NITROGLYCERIN 0.4 MG SL TAB SL (16:46)
[2023-01-12 16:53] LABS: Bacteria Urine Few (2-10); RBC Urine 5-10/HPF (0-5/HPF); Squamous Epithelial Cell Urine 1-5 /HPF (0-5/HPF); WBC Urine 10-30/HPF (0-5/HPF)
[2023-01-12 16:54] LABS: Culture Indicated Urine Specimen Cultured
[2023-01-12 18:07] LABS: Creatine Kinase 41 U/L (30-135)
[2023-01-12 18:20] LABS: Troponin I < 0.012 ng/mL (0.01-0.034)
== END 2023-01-12 19:08 | disposition home or self-care (01) ==
PROVIDERS: Emergency Provider Emergency Medicine; Family Provider Student in an Organized Health Care Education/Training Program; PCP Registered Nurse
DX: R07.89 Other chest pain (principal); M54.9 Dorsalgia, unspecified; Z79.01 Long term (current) use of anticoagulants
CPT/HCPCS: 36415; 71045; 71275; 74174; 80053; 81003; 81015; 82550; 83690; 83735; 84484; 85025; 85610; 85730; 87086; 93005; 99284; Q9967

== ENCOUNTER → 2023-06-27 09:57 | Outpatient (CLI) | payer MEDICARE, SELFPAY ==
[2022-04-12 01:05] VITALS: BMI 29.2
--- NOTE | 2023-06-27 | DI.RAD.S_ITS ---
PROCEDURE: XR WRIST LT MIN 3V INDICATIONS: PAIN IN WRIST TECHNIQUE: 4 views of the wrist were acquired. COMPARISON: [facility], CR, XR DEXA AXIAL SKELETON, 09/28/2022, 10:45. [facility], CR, XR WRIST RT MIN 3V, 04/05/2018, 9:28. FINDINGS: Bones: No fractures or dislocations. Mild to moderate 1st CMC and STT joint osteoarthritis. Mild diffuse degenerative changes in the carpal bones. Diffuse osseous demineralization. No suspicious bony lesions. Soft tissues: No suspicious soft tissue calcifications. IMPRESSION: Diffuse osseous demineralization limits sensitivity for subtle nondisplaced fracture. Within these limitations, no definite acute osseous abnormality. If there is high clinical suspicion for a radiographically occult fracture, consider repeat radiograph in 10-14 days versus cross-sectional imaging. Please see addendum on prior DEXA scan dated September 28, 2022. Dictated by: Sheila Holloway M.D. on 06/27/2023 at 12:31 Approved by: Sheila Holloway M.D. on 06/27/2023 at 12:53
== END ==
LOC: RAD 09:59
PROVIDERS: Family Provider Student in an Organized Health Care Education/Training Program; PCP Student in an Organized Health Care Education/Training Program; Referring Provider Student in an Organized Health Care Education/Training Program; Visit Provider Student in an Organized Health Care Education/Training Program
DX: M18.12 Unilateral primary osteoarthritis of first carpometacarpal joint, left hand (principal); M19.032 Primary osteoarthritis, left wrist; M25.532 Pain in left wrist; M25.432 Effusion, left wrist
CPT/HCPCS: 73110

== ENCOUNTER → 2023-07-03 15:29 | Outpatient (CLI) | payer MEDICARE, SELFPAY ==
[2022-04-12 01:05] VITALS: BMI 29.2
--- NOTE | 2023-07-03 15:31 | DI.RAD.S_ITS ---
PROCEDURE: XR SHOULDER LT MIN 2V INDICATIONS: LT SHOULDER PAIN FALL TECHNIQUE: 3 views of the shoulder were acquired. COMPARISON: [facility], SHOULDER 1 VIEW RIGHT, 07/13/2016, 11:43. [facility], SHOULDER MINIMUM 2VIEW RIGHT, 07/13/2016, 10:56. FINDINGS: Bones: No fractures or dislocations. Moderate degenerative changes acromioclavicular and mild of the glenohumeral joints. No suspicious bony lesions. Visualized ribs appear intact. Soft tissues: No suspicious soft tissue calcifications. IMPRESSION: No acute osseous abnormalities. Moderate acromioclavicular and mild glenohumeral joint degeneration. Dictated by: David Tong M.D. on 07/03/2023 at 16:27 Approved by: David Tong M.D. on 07/03/2023 at 16:28
== END ==
LOC: RAD 15:29
PROVIDERS: Family Provider Student in an Organized Health Care Education/Training Program; PCP Student in an Organized Health Care Education/Training Program; Referring Provider Student in an Organized Health Care Education/Training Program; Visit Provider Student in an Organized Health Care Education/Training Program
DX: M25.532 Pain in left wrist (principal); M25.432 Effusion, left wrist; M19.012 Primary osteoarthritis, left shoulder
CPT/HCPCS: 73030

== ENCOUNTER → 2023-07-05 13:07 | Outpatient (CLI) | payer MEDICARE, SELFPAY ==
[2022-04-12 01:05] VITALS: BMI 29.2
--- NOTE | 2023-07-05 13:09 | DI.CT.S_ITS ---
PROCEDURE: CT WRIST LEFT WITHOUT CON INDICATIONS: Pain in left wrist TECHNIQUE: Noncontrast 1 mm axial sections acquired through the carpal bones, with coronal and sagittal reformats. COMPARISON: [facility], CR, XR WRIST LT MIN 3V, 06/27/2023, 10:09. FINDINGS: Image quality: Excellent. Bones: No acute osseous fracture or dislocation. Generalized osteopenia. Multifocal degenerative changes are seen throughout the wrist, most notably at the 1st carpometacarpal and triscaphe joints where there is full-thickness joint space narrowing, subchondral sclerosis, subchondral cystic changes, and marginal osteophyte formation. Mild dorsal subluxation of the distal ulna relative to the radius. No suspicious intraosseous lesion. No signs of osteonecrosis. Soft tissues: Small joint effusions are seen in the wrist. There is diffuse chondrocalcinosis. The articular cartilages, ligaments, tendons are not well evaluated with CT. The visualized musculature is normal in bulk. IMPRESSION: 1. No acute osseous abnormality. Generalized osteopenia. 2. 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 3. Chondrocalcinosis. Differential diagnosis includes but is not limited to hemochromatosis, hyperparathyroidism and CPPD. Approved by: David Jung M.D. on 07/05/2023 at 16:39
== END ==
PROVIDERS: Family Provider Student in an Organized Health Care Education/Training Program; PCP Student in an Organized Health Care Education/Training Program; Referring Provider Student in an Organized Health Care Education/Training Program; Visit Provider Student in an Organized Health Care Education/Training Program
DX: M19.032 Primary osteoarthritis, left wrist (principal); M85.832 Other specified disorders of bone density and structure, left forearm; M11.232 Other chondrocalcinosis, left wrist; M25.532 Pain in left wrist; M25.432 Effusion, left wrist
CPT/HCPCS: 73200

== ENCOUNTER 2023-08-29 13:00 | Outpatient (RCR) | payer MEDICARE, SELFPAY ==
[2022-04-12 01:05] VITALS: BMI 29.2
--- NOTE | 2023-07-03 13:57 | PT.OPPOC ---
Physical, Occupational & Speech Therapy At [facility] Current Diagnoses Effusion, left wrist (07/03/23) Pain in left shoulder (07/03/23) Pain in left wrist (07/03/23) Visit Care Team Role Provider Type Nabila Giles PA-C Attending Provider Physician Pantry Steward/Stewardess Family Provider Primary Care Provider Referring Provider Specialty: Medical Address: [place], [place], [facility] Email: [email or web address] Plan Of Care PT-OP-T Assessment and Plan Start: 07/02/23 15:37 Freq: Status: Active Protocol: Document 07/03/23 13:58 SAK (Rec: 07/03/23 15:55 SAK [id number]) Physical Therapy Assessment Rehab Potential Rehabilitation Potential Good Evaluation Complexity Number of Personal Factors/Comorbidities 1-2 Number of Body Systems Impaired 3 Clinical Presentation at Evaluation Evolving Impairments Impairments Edema,Pain,ROM,Strength Goals Three Impairment edema left UE Short Term Goal (STG) decrease edema by at least 50% to allow improved use of left UE STG Duration 08/18/23 Longterm Goal (LTG) Decrease edema by at least 75% to allow patient to return to prior level of function with left UE LTG Duration 10/01/23 Two Impairment quickdash UE disability index score 84% Impairment poor activity tolerance Short Term Goal (STG) decrease Quickdash score to no greater than 50% as measure of improved ability to use left UE STG Duration 08/18/23 Longterm Goal (LTG) decrease Quickdash score to no greater than 20% as measure of improved ability to use left UE for all usual activities including ability to sleep without being woken due to pain LTG Duration 10/01/23 One Impairment pain left UE as high as 8/10 Impairment shoulder, scapula, elbow, wrist pain Short Term Goal (STG) Decrease pain to no greater than 4/10 with all usual activities STG Duration 08/18/23 Longterm Goal (LTG) Decrease pain to no greater than 2/10 with all usual activities LTG Duration 10/01/23 Assessment Summary Assessment Patient presents to PT with function-limiting pain in her left shoulder, elbow, and wrist with significant edema. She reports she was reaching up for her seatbelt and experienced pain in her left shoulder which has persisted and worsened to pain in the entire arm with swelling. No relief from ice, rest, or medications. Patient has moderately limited ROM in left shoulder, elbow, and wrist/ hand. Objective evaluation difficult due to level of pain , but symptoms indicative of possible biceps tear. Additionally patient having tingling into her lateral 2 fingers indicative of some ulnar nerv involvement. Treatment today focused on decreasing pain with IFES and ice, application of Tubigrip to left UE to decrease edema, and education in elevation and gentle ROM as tolerated. Feel she may benefit from further imaging to include an MRI if possible. Discussed POC and patient was in agreement. Physical Therapy Plan Frequency and Duration Frequency of Treatment 2x/Week Duration of treatment (weeks) 12 Plan of Care Start Date 07/03/23 Plan of Care End Date 10/01/23 Therapeutic Interventions Therapeutic Interventions Home Exercise Program,Manual Therapy,Patient/Caregiver Education,Self-Care/Home Management,Soft Tissue Mobilization,Taping, Therapeutic Activities, Therapeutic Exercises Modalities Cold Pack/Ice Massage,Electric Stimulation,Hot Packs, Infrared Therapy,Iontophoresis ,Ultrasound Other Therapeutic Interventions edema management Next Visit Focus/Plan Next Note Type Treatment Note Next Visit Plan Evaluate response to elevation , use of compression, and ice as instructed. . Gentle ther ex for ROM neck, shld, elbow, wrist, gentle massage for edema reduction. Modalities and manual therapy PRN pain and reduction of swelling. Plan of Care Dates Plan of Care Start Date 07/03/23 Plan of Care End Date 10/01/23 Electronically Signed by: Josephine Riggs, PT 07/07/23 [id number] If you are in agreement with this Plan of Care, please return a signed and dated copy. I have reviewed this Plan of Care and certify that the skilled therapy services above are required to meet the patient?s needs. Physician Signature Date Printed Name and Credentials Clinical Instructor Signature Printed Name and Credentials
--- NOTE | 2023-07-03 13:57 | PT.OIE ---
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) Fractures (10/08/07) Hayfever (1959) Heart failure, systolic History of UTI Lichen sclerosus et atrophicus (2011) Measles (1949) Microscopic hematuria Mitral stenosis Mixed incontinence Osteoarthritis (1996) Osteopenia Osteoporosis Postmenopausal atrophic vaginitis Valvular heart disease Past Surgical History (Last Reviewed 01/12/23 @ 18:20 by Leo Zavala DO) Anesthesia History of carpal tunnel repair (1979) History of carpal tunnel repair (03/23/04) History of cataract removal with insertion of prosthetic lens (01/02/12) History of cataract removal with insertion of prosthetic lens (12/19/11) History of hip replacement (05/08/10) History of hip surgery (05/16/08) History of hip surgery (10/08/07) History of incision and drainage (10/03/18) History of knee replacement (02/11/12) History of knee replacement (07/19/08) History of nasal surgery (10/03/11) History of orthopedic surgery (10/17/09) Periprosthetic fracture around other internal prosthetic joint, initial encounter Status post vaginal hysterectomy (1974) Visit Care Team Role Provider Type Nabila Giles PA-C Attending Provider Physician [employer] Teacher Family Provider Primary Care Provider Referring Provider Specialty: Medical Address: [place], [address] Email: [email or web address] [facility] Initial Evaluation PT-OP-A Visit Information Start: 07/02/23 15:37 Freq: Status: Active Protocol: Document 07/03/23 13:58 SAK (Rec: 07/03/23 14:40 SAK [id number]) Out-Patient Physical Therapy Visit Information Visit Information Visit Type Initial Evaluation Visit Start Time 13:55 Visit Stop Time 14:50 Visit Number 1 PT-OP-B Current Condition Start: 07/02/23 15:37 Freq: Status: Active Protocol: Document 07/03/23 13:58 SAK (Rec: 07/03/23 14:40 SAK [id number]) Current Condition History of Current Condition Onset Date 3 weeks ago Current Complaints left shoulder, neck, elbow, and wrist pain History of Current Condition was reaching up and back with left hand for seatbelt, immediate onset left shoulder pain and left wrist pain . Went into pool for exercise right after and it flared up. Pain has been moderate to evere with swelling into her left elbow and forearm. ordered PT for shoulder and x- ray for wrist last week. Hs been using ice, immobilizer left hand. Tingling into left elbow and lateral 2 fingers. Pain interrupting her sleep. Very swollen elbow and wrist/ hand. Prior Treatments and Tests wrist x-ray: negative, shoulder x-ray negative has CT scheduled for wrist Treatment Goals Patient/Caregiver Goals decrease pain and swelling and be able to resume normal use of her left UE Prior Functional Status Baseline Function- ADL's Independent Baseline Function- Mobility Independent Baseline Function- Work/School no restrictions Baseline Function- Recreation/Hobbies no restrictions Current Functional Impairments (Reported) Functional Limitations- ADL's can't use left UE Functional Limitations- Work/School can't use left UE Functional Limitations- Recreation/ not able Hobbies PT-OP-C Subjective Start: 07/02/23 15:37 Freq: Status: Active Protocol: Document 07/03/23 13:58 [facility] (Rec: 07/03/23 16:17 [facility] [id number]) Patient Questionnaires Quick Dash- Upper Extremity Quick Dash UE Score 84 OP-PT Pain Assessment Pain Assessment Grid Paper Pain Assessment Grid Completed Yes Location left UE Pain Location Details see pain chart Intensity 9 Description Aching,Sharp,Shooting,Stabbing ,Tender,Tightness Pain Behaviors Pain Behaviors Facial Grimacing,Guarding, Holding Area,Wincing PT-OP-F Manual Assessment Start: 07/02/23 15:37 Freq: Status: Active Protocol: Document 07/03/23 13:48 SAK (Rec: 07/07/23 13:55 SAK [id number]) Manual Assessments Soft Tissue Assessment Soft Tissue Mobility Assessment intact PT-OP-H Neuro Start: 07/02/23 15:37 Freq: Status: Active Protocol: Document 07/03/23 13:48 SAK (Rec: 07/07/23 13:55 [facility] [id number]) Sensation Evaluation Gross Sensation Gross Sensation Left UE Impaired Sensation Description Paresthesia,Numbness,Tingling PT-OP-J Posture/Palpation/Skin Start: 07/02/23 15:37 Freq: Status: Active Protocol: Document 07/03/23 13:48 SAK (Rec: 07/07/23 13:55 [facility] [id number]) Posture Evaluation Position Sitting Head/C-Spine Posture Forward Head Shoulder Posture (L) Rounded,(R) Rounded Scapula Posture (L) Protracted,(R) Protracted Arm Posture (L) Internally Rotated,(R) Internally Rotated PT-OP-K Range of Motion Start: 07/02/23 15:37 Freq: Status: Active Protocol: Document 07/03/23 13:48 [facility] (Rec: 07/07/23 13:55 [facility] [id number]) Cervical Spine Range of Motion Cervical Spine Active Comments WNL Shoulder Goniometric Range of Motion Shoulder Left Shoulder ROM WFL No Flexion 155 Extension 25 Abduction 145 Right Active Shoulder ROM WFL Yes Shoulder ROM Limitations Shoulder ROM Limitations Pain,Swelling Elbow/Forearm Range of Motion Elbow/Forearm Left Active Elbow/Forearm ROM WFL No Elbow Flexion (degrees) 105 Elbow Extension (degrees) 20 Right Active Elbow/Forearm ROM WFL Yes Wrist Goniometric Range of Motion Wrist Left Flexion Active (degrees) 15 Extension Active (degrees) 10 Right Wrist ROM WFL Yes ROM Limitations Wrist Limitations of Range of Motion Pain,Swelling PT-OP-L Special Tests Start: 07/02/23 15:37 Freq: Status: Active Protocol: Document 07/03/23 13:48 [facility] (Rec: 07/07/23 13:55 [facility] [id number]) Special Tests Shoulder Special Tests Elevation Impingement Test Results - Drop Arm Rotator Cuff Test Results - Elbow Special Tests Scar Biceps Test Results + PT-OP-M Strength Start: 07/02/23 15:37 Freq: Status: Active Protocol: Document 07/03/23 13:48 SAK (Rec: 07/07/23 13:55 [facility] [id number]) Shoulder Strength Shoulder Manual Muscle Testing Left Comments deferred due to pain Right Comments WNL Elbow/Forearm Strength Elbow and Forearm Manual Muscle Testing Left Flexion (C6) 4- Good- Extension (C7) 4- Good- Comments limited by pain Right Flexion (C6) 5 Normal Extension (C7) 5 Normal PT-OP-Q Treatments Start: 07/02/23 15:37 Freq: Status: Active Protocol: Document 07/03/23 13:58 [facility] (Rec: 07/03/23 15:16 [facility] [id number]) Manual Therapy Treatment Other Other Manual Treatments application of size F Tubigrip left hand to axilla for edema reduction and support Self-Care/Home Management Treatment Education Patient Education Pain Management,Posture Other Education elevation of left UE for edema reduction instruction in self-massage and hand mobility as tolerated for gentle edema reduction; lymphatic massage PT-OP-R Modalities Start: 07/02/23 15:37 Freq: Status: Active Protocol: Document 07/03/23 13:58 [facility] (Rec: 07/03/23 15:16 [facility] [id number]) Electric Stimulation Electric Stimulation Interferential Current (IFC) Body Location left shoulder Intensity 15 Target/Sweep Sweep Combined With Heat/Cold Cold Pack Comments also ice pack to left elbow PT-OP-T Assessment and Plan Start: 07/02/23 15:37 Freq: Status: Active Protocol: Document 07/03/23 13:58 [facility] (Rec: 07/03/23 15:55 [facility] [id number]) Physical Therapy Assessment Rehab Potential Rehabilitation Potential Good Evaluation Complexity Number of Personal Factors/Comorbidities 1-2 Number of Body Systems Impaired 3 Clinical Presentation at Evaluation Evolving Impairments Impairments Edema,Pain,ROM,Strength Goals Three Impairment edema left UE Short Term Goal (STG) decrease edema by at least 50% to allow improved use of left UE STG Duration 08/18/23 Cold Roll Inspector Goal (LTG) Decrease edema by at least 75% to allow patient to return to prior level of function with left UE LTG Duration 10/01/23 Two Impairment quickdash UE disability index score 84% Impairment poor activity tolerance Short Term Goal (STG) decrease Quickdash score to no greater than 50% as measure of improved ability to use left UE STG Duration 08/18/23 Assisted Goal (LTG) decrease Quickdash score to no greater than 20% as measure of improved ability to use left UE for all usual activities including ability to sleep without being woken due to pain LTG Duration 10/01/23 One Impairment pain left UE as high as 8/10 Impairment shoulder, scapula, elbow, wrist pain Short Term Goal (STG) Decrease pain to no greater than 4/10 with all usual activities STG Duration 08/18/23 Assisted Goal (LTG) Decrease pain to no greater than 2/10 with all usual activities LTG Duration 10/01/23 Assessment Summary Assessment Patient presents to PT with function-limiting pain in her left shoulder, elbow, and wrist with significant edema. She reports she was reaching up for her seatbelt and experienced pain in her left shoulder which has persisted and worsened to pain in the entire arm with swelling. No relief from ice, rest, or medications. Patient has moderately limited ROM in left shoulder, elbow, and wrist/ hand. Objective evaluation difficult due to level of pain , but symptoms indicative of possible biceps tear. Additionally patient having tingling into her lateral 2 fingers indicative of some ulnar nerv involvement. Treatment today focused on decreasing pain with IFES and ice, application of Tubigrip to left UE to decrease edema, and education in elevation and gentle ROM as tolerated. Feel she may benefit from further imaging to include an MRI if possible. Discussed POC and patient was in agreement. Physical Therapy Plan Frequency and Duration Frequency of Treatment 2x/Week Duration of treatment (weeks) 12 Plan of Care Start Date 07/03/23 Plan of Care End Date 10/01/23 Therapeutic Interventions Therapeutic Interventions Home Exercise Program,Manual Therapy,Patient/Caregiver Education,Self-Care/Home Management,Soft Tissue Mobilization,Taping, Therapeutic Activities, Therapeutic Exercises Modalities Cold Pack/Ice Massage,Electric Stimulation,Hot Packs, Infrared Therapy,Iontophoresis ,Ultrasound Other Therapeutic Interventions edema management Next Visit Focus/Plan Next Note Type Treatment Note Next Visit Plan Evaluate response to elevation , use of compression, and ice as instructed. . Gentle ther ex for ROM neck, shld, elbow, wrist, gentle massage for edema reduction. Modalities and manual therapy PRN pain and reduction of swelling.
--- NOTE | 2023-07-09 11:43 | PT.OTN ---
Current Diagnoses Effusion, left wrist (07/09/23) Pain in left shoulder (07/09/23) Pain in left wrist (07/09/23) Physical Therapy Treatment Note PT-OP-A Visit Information Start: 07/02/23 15:37 Freq: Status: Active Protocol: Document 07/09/23 10:32 SAK (Rec: 07/09/23 11:43 SAK [id number]) Out-Patient Physical Therapy Visit Information Visit Information Visit Type Treatment Note Visit Start Time 10:32 Visit Number 2 Evaluation Information Evaluation Date 07/03/23 PT-OP-B Current Condition Start: 07/02/23 15:37 Freq: Status: Active Protocol: Document 07/09/23 10:32 SAK (Rec: 07/09/23 11:43 SAK [id number]) Current Condition History of Current Condition Onset Date 3 weeks ago Current Complaints left shoulder, neck, elbow, and wrist pain History of Current Condition was reaching up and back with left hand for seatbelt, immediate onset left shoulder pain and left wrist pain . Went into pool for exercise right after and it flared up. Pain has been moderate to evere with swelling into her left elbow and forearm. ordered PT for shoulder and x- ray for wrist last week. Hs been using ice, immobilizer left hand. Tingling into left elbow and lateral 2 fingers. Pain interrupting her sleep. Very swollen elbow and wrist/ hand. Prior Treatments and Tests wrist x-ray: negative, shoulder x-ray negative has CT scheduled for wrist Treatment Goals Patient/Caregiver Goals decrease pain and swelling and be able to resume normal use of her left UE PT-OP-C Subjective Start: 07/02/23 15:37 Freq: Status: Active Protocol: Document 07/09/23 10:32 SAK (Rec: 07/09/23 11:43 SAK [id number]) OP-PT Subjective Patient Comments Patient Comments PT helpful, swelling has dissipated quite a bit. Reports 50-75% better. Really soresensitive lateral 2 fingers, forearm left UE. Has been wearing tubigrip, icing as instructed. Can't take pain medication due to stomach issues. Doesn't have an appointment scheduled with doctor yet for follow-up. PT-OP-F Manual Assessment Start: 07/02/23 15:37 Freq: Status: Active Protocol: Document 07/03/23 13:48 SAK (Rec: 07/07/23 13:55 [facility] [id number]) Manual Assessments Soft Tissue Assessment Soft Tissue Mobility Assessment intact PT-OP-H Neuro Start: 07/02/23 15:37 Freq: Status: Active Protocol: Document 07/03/23 13:48 [facility] (Rec: 07/07/23 13:55 [facility] [id number]) Sensation Evaluation Gross Sensation Gross Sensation Left UE Impaired Sensation Description Paresthesia,Numbness,Tingling PT-OP-J Posture/Palpation/Skin Start: 07/02/23 15:37 Freq: Status: Active Protocol: Document 07/03/23 13:48 [facility] (Rec: 07/07/23 13:55 [facility] [id number]) Posture Evaluation Position Sitting Head/C-Spine Posture Forward Head Shoulder Posture (L) Rounded,(R) Rounded Scapula Posture (L) Protracted,(R) Protracted Arm Posture (L) Internally Rotated,(R) Internally Rotated PT-OP-K Range of Motion Start: 07/02/23 15:37 Freq: Status: Active Protocol: Document 07/03/23 13:48 [facility] (Rec: 07/07/23 13:55 [facility] [id number]) Cervical Spine Range of Motion Cervical Spine Active Comments WNL Shoulder Goniometric Range of Motion Shoulder Left Shoulder ROM WFL No Flexion 155 Extension 25 Abduction 145 Right Active Shoulder ROM WFL Yes Shoulder ROM Limitations Shoulder ROM Limitations Pain,Swelling Elbow/Forearm Range of Motion Elbow/Forearm Left Active Elbow/Forearm ROM WFL No Elbow Flexion (degrees) 105 Elbow Extension (degrees) 20 Right Active Elbow/Forearm ROM WFL Yes Wrist Goniometric Range of Motion Wrist Left Flexion Active (degrees) 15 Extension Active (degrees) 10 Right Wrist ROM WFL Yes ROM Limitations Wrist Limitations of Range of Motion Pain,Swelling PT-OP-L Special Tests Start: 07/02/23 15:37 Freq: Status: Active Protocol: Document 07/03/23 13:48 [facility] (Rec: 07/07/23 13:55 [facility] [id number]) Special Tests Shoulder Special Tests Elevation Impingement Test Results - Drop Arm Rotator Cuff Test Results - Elbow Special Tests Scar Biceps Test Results + PT-OP-M Strength Start: 07/02/23 15:37 Freq: Status: Active Protocol: Document 07/03/23 13:48 [facility] (Rec: 07/07/23 13:55 [facility] [id number]) Shoulder Strength Shoulder Manual Muscle Testing Left Comments deferred due to pain Right Comments WNL Elbow/Forearm Strength Elbow and Forearm Manual Muscle Testing Left Flexion (C6) 4- Good- Extension (C7) 4- Good- Comments limited by pain Right Flexion (C6) 5 Normal Extension (C7) 5 Normal PT-OP-Q Treatments Start: 07/02/23 15:37 Freq: Status: Active Protocol: Document 07/09/23 10:32 [facility] (Rec: 07/09/23 11:43 [facility] [id number]) Therapeutic Exercises Sitting Exercises finger abd/add Reps/Minutes 5x fist Sitting Exercise Name open/close Reps/Minutes 5x wrist flex/ext Comments gravity eliminated forearm pron/sup Reps/Minutes 5x elbow flex/ext Reps/Minutes 5x shoulder ER/IR Reps/Minutes 5x Comments elbows at sides shoulder shrugs Sitting Exercise Name meño and unil Reps/Minutes 5x c/s rot, sb Reps/Minutes 5x Manual Therapy Treatment Soft Tissue Mobilization left UE Body Location entire arm Mobilization Type Manual Lymphatic Drainage Intensity/Depth Superficial Body Position Supine c/s, UT Mobilization Type Myofascial Release,Strumming, Sustained Pressure Intensity/Depth Moderate Body Position Supine Joint Mobilizations scapula Comments next session Other Other Manual Treatments reminded patient to remove at night to prevent potential rolling/tourniqueting effect Self-Care/Home Management Treatment Education Other Education review of self massage instruction exercises AROM starting at neck and moving distal, all joints through gentle AROM instruction use of TENS at home, bring next session Activities Self-Care/Home Management Activities slowly wean off wearing Tubigrip and brace as tolerated. instructed to make appointment with physician to review shoulder x-ray and wrist CT PT-OP-R Modalities Start: 07/02/23 15:37 Freq: Status: Active Protocol: Document 07/09/23 10:32 [facility] (Rec: 07/09/23 11:43 [facility] [id number]) Electric Stimulation Electric Stimulation Interferential Current (IFC) Body Location left shoulder Intensity 15 Target/Sweep Sweep Combined With Heat/Cold Cold Pack Comments also ice pack to left wrist PT-OP-T Assessment and Plan Start: 07/02/23 15:37 Freq: Status: Active Protocol: Document 07/09/23 10:32 [facility] (Rec: 07/09/23 11:43 SAK [id number]) Physical Therapy Assessment Goals Three Impairment edema left UE Short Term Goal (STG) decrease edema by at least 50% to allow improved use of left UE STG Duration 08/18/23 Care Home Goal (LTG) Decrease edema by at least 75% to allow patient to return to prior level of function with left UE LTG Duration 10/01/23 Two Impairment quickdash UE disability index score 84% Impairment poor activity tolerance Short Term Goal (STG) decrease Quickdash score to no greater than 50% as measure of improved ability to use left UE STG Duration 08/18/23 Care Home Goal (LTG) decrease Quickdash score to no greater than 20% as measure of improved ability to use left UE for all usual activities including ability to sleep without being woken due to pain LTG Duration 10/01/23 One Impairment pain left UE as high as 8/10 Impairment shoulder, scapula, elbow, wrist pain Short Term Goal (STG) Decrease pain to no greater than 4/10 with all usual activities STG Duration 08/18/23 [facility] Manager Goal (LTG) Decrease pain to no greater than 2/10 with all usual activities LTG Duration 10/01/23 Assessment Summary Assessment Patient reporting 50-75% reduction in pain and swelling with PT, wearing Tubigrip, icing, doing gentle retrograde massage. Obtained TENS for use at home, hasn't used yet, to bring next session if feels need for further help after instruction today. Instructed to make follow-up appointment with physician to review shoulder x-ray and wrist CT. [facility] x-ray showed mod arthritic changes AC and GH. WRist CT showed 1. No acute osseous abnormality. Generalized osteopenia. 2. 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 3. Chondrocalcinosis. Differential diagnosis includes but is not limited to hemochromatosis, hyperparathyroidism and CPPD. Physical Therapy Plan Frequency and Duration Frequency of Treatment 2x/Week Duration of treatment (weeks) 12 Plan of Care Start Date 07/03/23 Plan of Care End Date 10/01/23 Therapeutic Interventions Therapeutic Interventions Home Exercise Program,Manual Therapy,Patient/Caregiver Education,Self-Care/Home Management,Soft Tissue Mobilization,Taping, Therapeutic Activities, Therapeutic Exercises Modalities Cold Pack/Ice Massage,Electric Stimulation,Hot Packs, Infrared Therapy,Iontophoresis ,Ultrasound Other Therapeutic Interventions edema management Next Visit Focus/Plan Next Note Type Treatment Note Next Visit Plan Continue treatment per POC. Instruct in use of patient's TENS if brings. Continue gentle ther ex and manual therapy to decrease muscle tension and pain and dec edema . IFES and ice pack PRN.
--- NOTE | 2023-07-11 11:18 | PT.OTN ---
Current Diagnoses Effusion, left wrist (07/11/23) Pain in left shoulder (07/11/23) Pain in left wrist (07/11/23) Physical Therapy Treatment Note PT-OP-A Visit Information Start: 07/02/23 15:37 Freq: Status: Active Protocol: Document 07/11/23 10:31 SP (Rec: 07/11/23 11:51 SP [id number]) Out-Patient Physical Therapy Visit Information Visit Information Visit Type Treatment Note Visit Start Time 10:31 Visit Stop Time 11:18 Visit Number 3 Number of FRANCHISE DEVELOPMENT MANAGER Visits 1 PT-OP-B Current Condition Start: 07/02/23 15:37 Freq: Status: Active Protocol: Document 07/09/23 10:32 SAK (Rec: 07/09/23 11:43 SAK [id number]) Current Condition History of Current Condition Onset Date 3 weeks ago Current Complaints left shoulder, neck, elbow, and wrist pain History of Current Condition was reaching up and back with left hand for seatbelt, immediate onset left shoulder pain and left wrist pain . Went into pool for exercise right after and it flared up. Pain has been moderate to evere with swelling into her left elbow and forearm. ordered PT for shoulder and x- ray for wrist last week. Hs been using ice, immobilizer left hand. Tingling into left elbow and lateral 2 fingers. Pain interrupting her sleep. Very swollen elbow and wrist/ hand. Prior Treatments and Tests wrist x-ray: negative, shoulder x-ray negative has CT scheduled for wrist Treatment Goals Patient/Caregiver Goals decrease pain and swelling and be able to resume normal use of her left UE PT-OP-C Subjective Start: 07/02/23 15:37 Freq: Status: Active Protocol: Document 07/11/23 10:31 SP (Rec: 07/11/23 11:51 SP [id number]) OP-PT Subjective Patient Comments Patient Comments Pt reports compliant with HEP. Fingers very stiff. No significant decreased in L forearm edema reduction. PT-OP-F Manual Assessment Start: 07/02/23 15:37 Freq: Status: Active Protocol: Document 07/03/23 13:48 SAK (Rec: 07/07/23 13:55 SAK [id number]) Manual Assessments Soft Tissue Assessment Soft Tissue Mobility Assessment intact PT-OP-H Neuro Start: 07/02/23 15:37 Freq: Status: Active Protocol: Document 07/03/23 13:48 [facility] (Rec: 07/07/23 13:55 [facility] [id number]) Sensation Evaluation Gross Sensation Gross Sensation Left UE Impaired Sensation Description Paresthesia,Numbness,Tingling PT-OP-J Posture/Palpation/Skin Start: 07/02/23 15:37 Freq: Status: Active Protocol: Document 07/03/23 13:48 [facility] (Rec: 07/07/23 13:55 [facility] [id number]) Posture Evaluation Position Sitting Head/C-Spine Posture Forward Head Shoulder Posture (L) Rounded,(R) Rounded Scapula Posture (L) Protracted,(R) Protracted Arm Posture (L) Internally Rotated,(R) Internally Rotated PT-OP-K Range of Motion Start: 07/02/23 15:37 Freq: Status: Active Protocol: Document 07/03/23 13:48 [facility] (Rec: 07/07/23 13:55 [facility] [id number]) Cervical Spine Range of Motion Cervical Spine Active Comments WNL Shoulder Goniometric Range of Motion Shoulder Left Shoulder ROM WFL No Flexion 155 Extension 25 Abduction 145 Right Active Shoulder ROM WFL Yes Shoulder ROM Limitations Shoulder ROM Limitations Pain,Swelling Elbow/Forearm Range of Motion Elbow/Forearm Left Active Elbow/Forearm ROM WFL No Elbow Flexion (degrees) 105 Elbow Extension (degrees) 20 Right Active Elbow/Forearm ROM WFL Yes Wrist Goniometric Range of Motion Wrist Left Flexion Active (degrees) 15 Extension Active (degrees) 10 Right Wrist ROM WFL Yes ROM Limitations Wrist Limitations of Range of Motion Pain,Swelling PT-OP-L Special Tests Start: 07/02/23 15:37 Freq: Status: Active Protocol: Document 07/03/23 13:48 [facility] (Rec: 07/07/23 13:55 [facility] [id number]) Special Tests Shoulder Special Tests Elevation Impingement Test Results - Drop Arm Rotator Cuff Test Results - Elbow Special Tests Scar Biceps Test Results + PT-OP-M Strength Start: 07/02/23 15:37 Freq: Status: Active Protocol: Document 07/03/23 13:48 [facility] (Rec: 07/07/23 13:55 [facility] [id number]) Shoulder Strength Shoulder Manual Muscle Testing Left Comments deferred due to pain Right Comments WNL Elbow/Forearm Strength Elbow and Forearm Manual Muscle Testing Left Flexion (C6) 4- Good- Extension (C7) 4- Good- Comments limited by pain Right Flexion (C6) 5 Normal Extension (C7) 5 Normal PT-OP-Q Treatments Start: 07/02/23 15:37 Freq: Status: Active Protocol: Document 07/11/23 10:31 SP (Rec: 07/11/23 11:51 SP [id number]) Therapeutic Exercises Sitting Exercises finger opposition Sitting Exercise Name 1-5 tip>1-5 DIP> 1-2 IP Side left Reps/Minutes 3 reps each Comments improved ROM post manual finger extension Sitting Exercise Name 1-5 Side left Equipment Used palm face down table Reps/Minutes x5 Comments most challenging 5th finger but able do- less discom post manual finger abd/add Sitting Exercise Name HEP reviewed Side left Reps/Minutes 5x Comments 1-5 fist Sitting Exercise Name lumbrical, open/close Side left Equipment Used finger tips 1 inch from palm pre, touching palm post Reps/Minutes 5x Comments improved post manual wrist flex/ext Side left Equipment Used forearm rested on table Comments gravity eliminated forearm pron/sup Side left Equipment Used forearm rested on table Reps/Minutes 5x elbow flex/ext Side bilateral Reps/Minutes 5x shoulder ER/IR Side bilateral Reps/Minutes 5x Comments elbows at sides shoulder shrugs Sitting Exercise Name meño and unil Reps/Minutes 5x c/s rot, sb Side bilateral Reps/Minutes 5x Other Exercises self STMs Other Exercise Name discussed, uses lacrosse ball for manual post scap/LB Comments suggested in sock for scap for control- good feedback understanding Manual Therapy Treatment Soft Tissue Mobilization L hand Body Location 1> 2-5 intrinsics, distal tendons Mobilization Type Cross-Friction,Myofascial Release,Strumming,Sustained Pressure,Other Comments manual and ed self using RUE left UE Body Location forearm Mobilization Type Manual Lymphatic Drainage Intensity/Depth Superficial Body Position seated Comments -lymphatic anterior- ed self light start proximal arm work distal -moderate posterior extensors glides and MWM pron/sup- feels good c/s, UT Mobilization Type Myofascial Release,Strumming, Sustained Pressure Intensity/Depth Moderate Body Position R side Joint Mobilizations 1-5 MTP & finger jts Joint DIP, IP, PIP Direction PA, AP, rotation, flex (while stabilize shaft) Grade I Body Position seated Comments gentle manual and ed self, more sensitive 5>4th MTP and DIP most restricted, gained ROM scapula Joint L Direction retraction/protraction, sup/ inf glide, UR with ABD AAROM Grade II Body Position R side Comments tactile cues inferior glide into ABD Taping Ktaping R forearm edema mgt Body Location over prox flexors to distal humerus Treatment Focus edema mgt, return Type of Tape ktaping Comments anchor mid forearm 3 strips to distal humerus. Good understanding adverse affects- trial 2 hrs, 4 hrs, 8 hrs, 24 hrs, no longer than 48 hrs due to adverse reaction in past, remove immediately if symptomatic. PT-OP-R Modalities Start: 07/02/23 15:37 Freq: Status: Active Protocol: Document 07/09/23 10:32 [facility]AK (Rec: 07/09/23 11:43 SAK [id number]) Electric Stimulation Electric Stimulation Interferential Current (IFC) Body Location left shoulder Intensity 15 Target/Sweep Sweep Combined With Heat/Cold Cold Pack Comments also ice pack to left wrist PT-OP-T Assessment and Plan Start: 07/02/23 15:37 Freq: Status: Active Protocol: Document 07/11/23 10:31 SP (Rec: 07/11/23 11:51 SP [id number]) Physical Therapy Assessment Goals Three Impairment edema left UE Short Term Goal (STG) decrease edema by at least 50% to allow improved use of left UE STG Duration 08/18/23 Mcfp Goal (LTG) Decrease edema by at least 75% to allow patient to return to prior level of function with left UE LTG Duration 10/01/23 Two Impairment quickdash UE disability index score 84% Impairment poor activity tolerance Short Term Goal (STG) decrease Quickdash score to no greater than 50% as measure of improved ability to use left UE STG Duration 08/18/23 Policy Specialist Goal (LTG) decrease Quickdash score to no greater than 20% as measure of improved ability to use left UE for all usual activities including ability to sleep without being woken due to pain LTG Duration 10/01/23 One Impairment pain left UE as high as 8/10 Impairment shoulder, scapula, elbow, wrist pain Short Term Goal (STG) Decrease pain to no greater than 4/10 with all usual activities STG Duration 08/18/23 [facility] Goal (LTG) Decrease pain to no greater than 2/10 with all usual activities LTG Duration 10/01/23 Assessment Summary Assessment Pt good response to manual feels good and my joints like the movement in hands. Encouraged with ed how perform home. GOod form with HEP review. Added finger opposition and flexion, target DIP/IP. Pt was able to close fist fingers to palm end tx. Good understanding safe Ktaping L forearm and remove if have adverse affects with history different taping but wanting trial edema mgt benefits. Physical Therapy Plan Frequency and Duration Frequency of Treatment 2x/Week Duration of treatment (weeks) 12 Plan of Care Start Date 07/03/23 Plan of Care End Date 10/01/23 Therapeutic Interventions Therapeutic Interventions Home Exercise Program,Manual Therapy,Patient/Caregiver Education,Self-Care/Home Management,Soft Tissue Mobilization,Taping, Therapeutic Activities, Therapeutic Exercises Modalities Cold Pack/Ice Massage,Electric Stimulation,Hot Packs, Infrared Therapy,Iontophoresis ,Ultrasound Other Therapeutic Interventions edema management Next Visit Focus/Plan Next Note Type Treatment Note Next Visit Plan Continue treatment per POC. Instruct in use of patient's TENS if brings. Continue gentle ther ex and manual therapy to decrease muscle tension and pain and dec edema . IFES and ice pack PRN.
--- NOTE | 2023-07-18 10:35 | PT.OTN ---
Current Diagnoses Effusion, left wrist (07/18/23) Pain in left shoulder (07/18/23) Pain in left wrist (07/18/23) Physical Therapy Treatment Note PT-OP-A Visit Information Start: 07/02/23 15:37 Freq: Status: Active Protocol: Document 07/18/23 09:54 SP (Rec: 07/18/23 10:38 SP [id number]) Out-Patient Physical Therapy Visit Information Visit Information Visit Type Treatment Note Visit Start Time 09:54 Visit Stop Time 10:35 Visit Number 4 Number of WET END TESTER Visits 2 Evaluation Information Evaluation Date 07/03/23 PT-OP-B Current Condition Start: 07/02/23 15:37 Freq: Status: Active Protocol: Document 07/09/23 10:32 SAK (Rec: 07/09/23 11:43 SAK [id number]) Current Condition History of Current Condition Onset Date 3 weeks ago Current Complaints left shoulder, neck, elbow, and wrist pain History of Current Condition was reaching up and back with left hand for seatbelt, immediate onset left shoulder pain and left wrist pain . Went into pool for exercise right after and it flared up. Pain has been moderate to evere with swelling into her left elbow and forearm. ordered PT for shoulder and x- ray for wrist last week. Hs been using ice, immobilizer left hand. Tingling into left elbow and lateral 2 fingers. Pain interrupting her sleep. Very swollen elbow and wrist/ hand. Prior Treatments and Tests wrist x-ray: negative, shoulder x-ray negative has CT scheduled for wrist Treatment Goals Patient/Caregiver Goals decrease pain and swelling and be able to resume normal use of her left UE PT-OP-C Subjective Start: 07/02/23 15:37 Freq: Status: Active Protocol: Document 07/18/23 09:54 SP (Rec: 07/18/23 10:38 SP [id number]) OP-PT Subjective Patient Comments Patient Comments Pt reports saw physician and got report back that there is impinging at C8 and affecting pain into L UE. She asked if can add neck to PT. prescribed and taking Prednizone for inflammation. She is able to close L hand into fist now with HEP. She also reported Ktaping helped swelling anteriomedial L elbow but thinks leaving on for 2 days was to long, due to stuck pretty good and after took off was red and itching. Washed skin well but lingered little bit, prednisone helped it clear. Very small anterior elbow swelling spot remains, significant improvement. PT-OP-F Manual Assessment Start: 07/02/23 15:37 Freq: Status: Active Protocol: Document 07/03/23 13:48 [facility] (Rec: 07/07/23 13:55 [facility] [id number]) Manual Assessments Soft Tissue Assessment Soft Tissue Mobility Assessment intact PT-OP-H Neuro Start: 07/02/23 15:37 Freq: Status: Active Protocol: Document 07/03/23 13:48 SAK (Rec: 07/07/23 13:55 [facility] [id number]) Sensation Evaluation Gross Sensation Gross Sensation Left UE Impaired Sensation Description Paresthesia,Numbness,Tingling PT-OP-J Posture/Palpation/Skin Start: 07/02/23 15:37 Freq: Status: Active Protocol: Document 07/03/23 13:48 [facility] (Rec: 07/07/23 13:55 [facility] [id number]) Posture Evaluation Position Sitting Head/C-Spine Posture Forward Head Shoulder Posture (L) Rounded,(R) Rounded Scapula Posture (L) Protracted,(R) Protracted Arm Posture (L) Internally Rotated,(R) Internally Rotated PT-OP-K Range of Motion Start: 07/02/23 15:37 Freq: Status: Active Protocol: Document 07/03/23 13:48 [facility] (Rec: 07/07/23 13:55 [facility] [id number]) Cervical Spine Range of Motion Cervical Spine Active Comments WNL Shoulder Goniometric Range of Motion Shoulder Left Shoulder ROM WFL No Flexion 155 Extension 25 Abduction 145 Right Active Shoulder ROM WFL Yes Shoulder ROM Limitations Shoulder ROM Limitations Pain,Swelling Elbow/Forearm Range of Motion Elbow/Forearm Left Active Elbow/Forearm ROM WFL No Elbow Flexion (degrees) 105 Elbow Extension (degrees) 20 Right Active Elbow/Forearm ROM WFL Yes Wrist Goniometric Range of Motion Wrist Left Flexion Active (degrees) 15 Extension Active (degrees) 10 Right Wrist ROM WFL Yes ROM Limitations Wrist Limitations of Range of Motion Pain,Swelling PT-OP-L Special Tests Start: 07/02/23 15:37 Freq: Status: Active Protocol: Document 07/03/23 13:48 [facility] (Rec: 07/07/23 13:55 [facility] [id number]) Special Tests Shoulder Special Tests Elevation Impingement Test Results - Drop Arm Rotator Cuff Test Results - Elbow Special Tests Scar Biceps Test Results + PT-OP-M Strength Start: 07/02/23 15:37 Freq: Status: Active Protocol: Document 07/03/23 13:48 SAK (Rec: 07/07/23 13:55 SAK [id number]) Shoulder Strength Shoulder Manual Muscle Testing Left Comments deferred due to pain Right Comments WNL Elbow/Forearm Strength Elbow and Forearm Manual Muscle Testing Left Flexion (C6) 4- Good- Extension (C7) 4- Good- Comments limited by pain Right Flexion (C6) 5 Normal Extension (C7) 5 Normal PT-OP-Q Treatments Start: 07/02/23 15:37 Freq: Status: Active Protocol: Document 07/18/23 09:54 SP (Rec: 07/18/23 10:38 SP [id number]) Therapeutic Exercises Supine Exercises pec stretch Supine Exercise Name trialed arms out side Side bilateral Equipment Used no pillow needed under head Reps/Minutes 30 Comments good gentle pec stretch DNF head nods flex Supine Exercise Name 1. DNF isometric (gentle post neck stretch) 2. lift/ unweight table Equipment Used no pillow needed under head Reps/Minutes 1. 5 SH x10 2. DNF lift x5 reps Comments pnfree 2 reps light more DNF hold better before lift Sitting Exercises forearm/wrist 6 way Sitting Exercise Name added to HEP: 6 way: flex, ext , RD, UD, Pron, Supination Side left Resistance Tb #1 anchored under foot. Reps/Minutes 10 each Comments cued forearm on lap or table stationary, only wrist mvt- pnfree putty Sitting Exercise Name reviewed a past HEP: nida today discussed not performed Resistance has putty home from her past Reps/Minutes 5 SH x10 Comments ed further DIP flexion finger opposition Sitting Exercise Name 1-5 tip>1-5 DIP> 1-2 IP Side left Resistance ROM Reps/Minutes 5 reps each Comments normal ROM 1-3 to PIP, 5th to mid palm Standing Exercises wall posture Standing Exercise Name next Manual Therapy Treatment Soft Tissue Mobilization c/s, UT Body Location B UT, LS, SCM, Scalene, Pec inferior clavicle Mobilization Type Myofascial Release,Strumming, Sustained Pressure Intensity/Depth Moderate Body Position Hooklying Comments manual and ed self SCM PT-OP-R Modalities Start: 07/02/23 15:37 Freq: Status: Active Protocol: Document 07/09/23 10:32 SAK (Rec: 07/09/23 11:43 SAK [id number]) Electric Stimulation Electric Stimulation Interferential Current (IFC) Body Location left shoulder Intensity 15 Target/Sweep Sweep Combined With Heat/Cold Cold Pack Comments also ice pack to left wrist PT-OP-T Assessment and Plan Start: 07/02/23 15:37 Freq: Status: Active Protocol: Document 07/18/23 09:54 SP (Rec: 07/18/23 10:38 SP [id number]) Physical Therapy Assessment Goals Three Impairment edema left UE Short Term Goal (STG) decrease edema by at least 50% to allow improved use of left UE 07/18/23: MET GOAL: reduction in L elbow edema at least 60 %. STG Duration 08/18/23 GOAL MET 07/18/23 Library Director Goal (LTG) Decrease edema by at least 75% to allow patient to return to prior level of function with left UE 07/18/23: progressing reduction R anteromedial elbow 60% since last tx. LTG Duration 10/01/23 PRogresing 07/18/23 Two Impairment quickdash UE disability index score 84% Impairment poor activity tolerance Short Term Goal (STG) decrease Quickdash score to no greater than 50% as measure of improved ability to use left UE STG Duration 08/18/23 Fpc Goal (LTG) decrease Quickdash score to no greater than 20% as measure of improved ability to use left UE for all usual activities including ability to sleep without being woken due to pain LTG Duration 10/01/23 One Impairment pain left UE as high as 8/10 Impairment shoulder, scapula, elbow, wrist pain Short Term Goal (STG) Decrease pain to no greater than 4/10 with all usual activities STG Duration 08/18/23 Library Director Goal (LTG) Decrease pain to no greater than 2/10 with all usual activities LTG Duration 10/01/23 Assessment Summary Assessment Pt has significant improvement in LUE finger ROM since last tx, not measured. SHe had good response to manual, decreased neck tension and able lift head no strain on neck. Good gentle pec chest stretch reported. No adverse affect to added resisted wrist strengthening for support gripping and carrying items again. She would benefit from continued wall posture, LUE and manager energy strengthening. Physical Therapy Plan Frequency and Duration Frequency of Treatment 2x/Week Duration of treatment (weeks) 12 Plan of Care Start Date 07/03/23 Plan of Care End Date 10/01/23 Therapeutic Interventions Therapeutic Interventions Home Exercise Program,Manual Therapy,Patient/Caregiver Education,Self-Care/Home Management,Soft Tissue Mobilization,Taping, Therapeutic Activities, Therapeutic Exercises Modalities Cold Pack/Ice Massage,Electric Stimulation,Hot Packs, Infrared Therapy,Iontophoresis ,Ultrasound Other Therapeutic Interventions edema management Next Visit Focus/Plan Next Note Type Treatment Note Next Visit Plan Review HEP: DNF, wrist 6 way TB, putty claw grasp. Next add : wall posture and UE strengthening TB. Instruct in use of patient's TENS if brings B UppTrap/BLevScap. Continue per POC:gentle ther ex and manual therapy to decrease muscle tension and pain and dec edema. IFES and ice pack PRN.
--- NOTE | 2023-07-22 09:45 | PT.OTN ---
Current Diagnoses Effusion, left wrist (07/22/23) Pain in left shoulder (07/22/23) Pain in left wrist (07/22/23) Physical Therapy Treatment Note PT-OP-A Visit Information Start: 07/02/23 15:37 Freq: Status: Active Protocol: Document 07/22/23 09:02 SP (Rec: 07/22/23 09:48 SP [id number]) Out-Patient Physical Therapy Visit Information Visit Information Visit Type Treatment Note Visit Start Time 09:02 Visit Stop Time 09:45 Visit Number 5 Number of CANE FLUME WATCHER Visits 3 Evaluation Information Evaluation Date 07/03/23 PT-OP-B Current Condition Start: 07/02/23 15:37 Freq: Status: Active Protocol: Document 07/09/23 10:32 SAK (Rec: 07/09/23 11:43 SAK [id number]) Current Condition History of Current Condition Onset Date 3 weeks ago Current Complaints left shoulder, neck, elbow, and wrist pain History of Current Condition was reaching up and back with left hand for seatbelt, immediate onset left shoulder pain and left wrist pain . Went into pool for exercise right after and it flared up. Pain has been moderate to evere with swelling into her left elbow and forearm. ordered PT for shoulder and x- ray for wrist last week. Hs been using ice, immobilizer left hand. Tingling into left elbow and lateral 2 fingers. Pain interrupting her sleep. Very swollen elbow and wrist/ hand. Prior Treatments and Tests wrist x-ray: negative, shoulder x-ray negative has CT scheduled for wrist Treatment Goals Patient/Caregiver Goals decrease pain and swelling and be able to resume normal use of her left UE PT-OP-C Subjective Start: 07/02/23 15:37 Freq: Status: Active Protocol: Document 07/22/23 09:02 SP (Rec: 07/22/23 09:48 SP [id number]) OP-PT Subjective Patient Comments Patient Comments Pt reports is starting to reduce Prednisone as prescribed and noticing R hand 3-5MTPs achy/pain but the new exercises seem to be doing ok with. R hand stiff this am. Neck seems to be dong much better, back to normal pains. She also noticed that she is starting to get the ringing in ears that is distracting as did before, the Prednisone helps hear clearer and felt more productive. Is looking into another hearing test. She stated she has been raking and thinks is also flaring up her L hand, only rakes 1 direction/not switch sides when asked. She reported upper /mid back muscles tiring soreness with HEP but helping neck feel better. PT-OP-F Manual Assessment Start: 07/02/23 15:37 Freq: Status: Active Protocol: Document 07/03/23 13:48 SAK (Rec: 07/07/23 13:55 [facility] [id number]) Manual Assessments Soft Tissue Assessment Soft Tissue Mobility Assessment intact PT-OP-H Neuro Start: 07/02/23 15:37 Freq: Status: Active Protocol: Document 07/03/23 13:48 SAK (Rec: 07/07/23 13:55 [facility] [id number]) Sensation Evaluation Gross Sensation Gross Sensation Left UE Impaired Sensation Description Paresthesia,Numbness,Tingling PT-OP-J Posture/Palpation/Skin Start: 07/02/23 15:37 Freq: Status: Active Protocol: Document 07/03/23 13:48 SAK (Rec: 07/07/23 13:55 [facility] [id number]) Posture Evaluation Position Sitting Head/C-Spine Posture Forward Head Shoulder Posture (L) Rounded,(R) Rounded Scapula Posture (L) Protracted,(R) Protracted Arm Posture (L) Internally Rotated,(R) Internally Rotated PT-OP-K Range of Motion Start: 07/02/23 15:37 Freq: Status: Active Protocol: Document 07/03/23 13:48 SAK (Rec: 07/07/23 13:55 [facility] [id number]) Cervical Spine Range of Motion Cervical Spine Active Comments WNL Shoulder Goniometric Range of Motion Shoulder Left Shoulder ROM WFL No Flexion 155 Extension 25 Abduction 145 Right Active Shoulder ROM WFL Yes Shoulder ROM Limitations Shoulder ROM Limitations Pain,Swelling Elbow/Forearm Range of Motion Elbow/Forearm Left Active Elbow/Forearm ROM WFL No Elbow Flexion (degrees) 105 Elbow Extension (degrees) 20 Right Active Elbow/Forearm ROM WFL Yes Wrist Goniometric Range of Motion Wrist Left Flexion Active (degrees) 15 Extension Active (degrees) 10 Right Wrist ROM WFL Yes ROM Limitations Wrist Limitations of Range of Motion Pain,Swelling PT-OP-L Special Tests Start: 07/02/23 15:37 Freq: Status: Active Protocol: Document 07/03/23 13:48 SAK (Rec: 02/25/24 13:55 SAK [id number]) Special Tests Shoulder Special Tests Elevation Impingement Test Results - Drop Arm Rotator Cuff Test Results - Elbow Special Tests Scar Biceps Test Results + PT-OP-M Strength Start: 07/02/23 15:37 Freq: Status: Active Protocol: Document 07/03/23 13:48 SAK (Rec: 07/07/23 13:55 SAK [id number]) Shoulder Strength Shoulder Manual Muscle Testing Left Comments deferred due to pain Right Comments WNL Elbow/Forearm Strength Elbow and Forearm Manual Muscle Testing Left Flexion (C6) 4- Good- Extension (C7) 4- Good- Comments limited by pain Right Flexion (C6) 5 Normal Extension (C7) 5 Normal PT-OP-Q Treatments Start: 07/02/23 15:37 Freq: Status: Active Protocol: Document 07/22/23 09:02 SP (Rec: 07/22/23 09:48 SP [id number]) Therapeutic Exercises Sitting Exercises forearm/wrist 6 way Sitting Exercise Name reviewed HEP: 6 way: flex, ext , RD, UD, Pron, Supination Side left Resistance Tb #1 anchored under foot. Equipment Used 1. seated 2. standing ok ext & supination ok Reps/Minutes 10 each Comments cued forearm on lap or table stationary, only wrist mvt- pnfree Standing Exercises shld ext Standing Exercise Name added to HEP-declined HO Resistance TB #1 Reps/Minutes x10 Comments cued CS NS, TA- good postural scap and UE effort, pnfree Manual Therapy Treatment Soft Tissue Mobilization L hand Body Location 1> 2-5 intrinsics, distal tendons Mobilization Type Cross-Friction,Myofascial Release,Strumming,Sustained Pressure,Other Body Position Hooklying Comments manual Joint Mobilizations 1-5 MTP & finger jts Joint DIP, IP, PIP Direction PA, AP, rotation, flex (while stabilize shaft) Grade I Body Position seated Comments gentle manual and ed self, more sensitive 5>4th MTP and DIP most restricted, gained ROM PT-OP-R Modalities Start: 07/02/23 15:37 Freq: Status: Active Protocol: Document 07/09/23 10:32 SAK (Rec: 07/09/23 11:43 SAK [id number]) Electric Stimulation Electric Stimulation Interferential Current (IFC) Body Location left shoulder Intensity 15 Target/Sweep Sweep Combined With Heat/Cold Cold Pack Comments also ice pack to left wrist PT-OP-T Assessment and Plan Start: 07/02/23 15:37 Freq: Status: Active Protocol: Document 07/22/23 09:02 SP (Rec: 07/22/23 09:48 SP [id number]) Physical Therapy Assessment Goals Three Impairment edema left UE Short Term Goal (STG) decrease edema by at least 50% to allow improved use of left UE 07/18/23: MET GOAL: reduction in L elbow edema at least 60 %. STG Duration 08/18/23 GOAL MET 07/18/23 Retirement Goal (LTG) Decrease edema by at least 75% to allow patient to return to prior level of function with left UE 07/18/23: progressing reduction R anteromedial elbow 60% since last tx. LTG Duration 10/01/23 PRogresing 07/18/23 Two Impairment quickdash UE disability index score 84% Impairment poor activity tolerance Short Term Goal (STG) decrease Quickdash score to no greater than 50% as measure of improved ability to use left UE STG Duration 08/18/23 Retirement Goal (LTG) decrease Quickdash score to no greater than 20% as measure of improved ability to use left UE for all usual activities including ability to sleep without being woken due to pain LTG Duration 10/01/23 One Impairment pain left UE as high as 8/10 Impairment shoulder, scapula, elbow, wrist pain Short Term Goal (STG) Decrease pain to no greater than 4/10 with all usual activities STG Duration 08/18/23 Marine Oiler Goal (LTG) Decrease pain to no greater than 2/10 with all usual activities LTG Duration 10/01/23 Assessment Summary Assessment Pt stiffness more and sensitive MTP 3-5 PIP today and may result of raking motion, she's not sure if it's her joints flare up. Pt more hand ROM/wrist mobility post manual. Good response to wrist resisted HEP seated, trialed standing arm at side, fine ext and supination but to much elbow grind and tendon irritation flex and pronation so stopped. Pt responded well to added open book for UE ROM/ arm wt and TS mobility to give movement post CS and scap retraction HEP. Improved self corrections with occasional cue for neck/scap retraction during eccentric shld ext to HEP. Would benefit from continued side laster with raking motions under tension functional mobility. Physical Therapy Plan Frequency and Duration Frequency of Treatment 2x/Week Duration of treatment (weeks) 12 Plan of Care Start Date 07/03/23 Plan of Care End Date 10/01/23 Therapeutic Interventions Therapeutic Interventions Home Exercise Program,Manual Therapy,Patient/Caregiver Education,Self-Care/Home Management,Soft Tissue Mobilization,Taping, Therapeutic Activities, Therapeutic Exercises Modalities Cold Pack/Ice Massage,Electric Stimulation,Hot Packs, Infrared Therapy,Iontophoresis ,Ultrasound Other Therapeutic Interventions edema management Next Visit Focus/Plan Next Note Type Treatment Note Next Visit Plan Review HEP: wrist, shld ext. Next add: wall posture and UE strengthening TB. wrist functional raking motions. POC: Instruct in use of patient's TENS if brings B UppTrap/BLevScap. Continue per PT gentle ther ex and manual therapy to decrease muscle tension and pain and dec edema. IFES and ice pack PRN.
--- NOTE | 2023-07-24 11:16 | PT.OTN ---
Current Diagnoses Effusion, left wrist (07/24/23) Pain in left shoulder (07/24/23) Pain in left wrist (07/24/23) Physical Therapy Treatment Note PT-OP-A Visit Information Start: 07/02/23 15:37 Freq: Status: Active Protocol: Document 07/24/23 10:34 SP (Rec: 07/24/23 11:20 SP [id number]) Out-Patient Physical Therapy Visit Information Visit Information Visit Type Treatment Note Visit Start Time 10:34 Visit Stop Time 11:16 Visit Number 6 Number of SIDE TRIMMER Visits 4 Evaluation Information Evaluation Date 07/03/23 PT-OP-B Current Condition Start: 07/02/23 15:37 Freq: Status: Active Protocol: Document 07/09/23 10:32 SAK (Rec: 07/09/23 11:43 SAK [id number]) Current Condition History of Current Condition Onset Date 3 weeks ago Current Complaints left shoulder, neck, elbow, and wrist pain History of Current Condition was reaching up and back with left hand for seatbelt, immediate onset left shoulder pain and left wrist pain . Went into pool for exercise right after and it flared up. Pain has been moderate to evere with swelling into her left elbow and forearm. ordered PT for shoulder and x- ray for wrist last week. Hs been using ice, immobilizer left hand. Tingling into left elbow and lateral 2 fingers. Pain interrupting her sleep. Very swollen elbow and wrist/ hand. Prior Treatments and Tests wrist x-ray: negative, shoulder x-ray negative has CT scheduled for wrist Treatment Goals Patient/Caregiver Goals decrease pain and swelling and be able to resume normal use of her left UE PT-OP-C Subjective Start: 07/02/23 15:37 Freq: Status: Active Protocol: Document 07/24/23 10:34 SP (Rec: 07/24/23 11:20 SP [id number]) OP-PT Subjective Patient Comments Patient Comments Pt reports neck and elbow better but L 3-5 MCP still having pain mid/near MCPand end range opposition to base of 5th PIP. She did some more light raking with less gripping and did fine, pnfree in L hand/elbow. She did some gardening and did ok as well. She stated went to the pool since last tx: water walking, deep end bicycle and UE resistance and L wrist/hand felt great after. L medial wrist little more fluid pocket at distal ulna. PT-OP-F Manual Assessment Start: 07/02/23 15:37 Freq: Status: Active Protocol: Document 07/03/23 13:48 [facility] (Rec: 07/07/23 13:55 [facility] [id number]) Manual Assessments Soft Tissue Assessment Soft Tissue Mobility Assessment intact PT-OP-H Neuro Start: 07/02/23 15:37 Freq: Status: Active Protocol: Document 07/03/23 13:48 [facility] (Rec: 07/07/23 13:55 [facility] [id number]) Sensation Evaluation Gross Sensation Gross Sensation Left UE Impaired Sensation Description Paresthesia,Numbness,Tingling PT-OP-J Posture/Palpation/Skin Start: 07/02/23 15:37 Freq: Status: Active Protocol: Document 07/03/23 13:48 [facility] (Rec: 07/07/23 13:55 [facility] [id number]) Posture Evaluation Position Sitting Head/C-Spine Posture Forward Head Shoulder Posture (L) Rounded,(R) Rounded Scapula Posture (L) Protracted,(R) Protracted Arm Posture (L) Internally Rotated,(R) Internally Rotated PT-OP-K Range of Motion Start: 07/02/23 15:37 Freq: Status: Active Protocol: Document 07/03/23 13:48 [facility] (Rec: 07/07/23 13:55 [facility] [id number]) Cervical Spine Range of Motion Cervical Spine Active Comments WNL Shoulder Goniometric Range of Motion Shoulder Left Shoulder ROM WFL No Flexion 155 Extension 25 Abduction 145 Right Active Shoulder ROM WFL Yes Shoulder ROM Limitations Shoulder ROM Limitations Pain,Swelling Elbow/Forearm Range of Motion Elbow/Forearm Left Active Elbow/Forearm ROM WFL No Elbow Flexion (degrees) 105 Elbow Extension (degrees) 20 Right Active Elbow/Forearm ROM WFL Yes Wrist Goniometric Range of Motion Wrist Left Flexion Active (degrees) 15 Extension Active (degrees) 10 Right Wrist ROM WFL Yes ROM Limitations Wrist Limitations of Range of Motion Pain,Swelling PT-OP-L Special Tests Start: 07/02/23 15:37 Freq: Status: Active Protocol: Document 07/03/23 13:48 [facility] (Rec: 07/07/23 13:55 [facility] [id number]) Special Tests Shoulder Special Tests Elevation Impingement Test Results - Drop Arm Rotator Cuff Test Results - Elbow Special Tests Scar Biceps Test Results + PT-OP-M Strength Start: 07/02/23 15:37 Freq: Status: Active Protocol: Document 07/03/23 13:48 SAK (Rec: 07/07/23 13:55 SAK [id number]) Shoulder Strength Shoulder Manual Muscle Testing Left Comments deferred due to pain Right Comments WNL Elbow/Forearm Strength Elbow and Forearm Manual Muscle Testing Left Flexion (C6) 4- Good- Extension (C7) 4- Good- Comments limited by pain Right Flexion (C6) 5 Normal Extension (C7) 5 Normal PT-OP-Q Treatments Start: 07/02/23 15:37 Freq: Status: Active Protocol: Document 07/24/23 10:34 SP (Rec: 07/24/23 11:20 SP [id number]) Therapeutic Exercises Sitting Exercises flex bar Sitting Exercise Name trialed Side left Resistance RD/UD, pron/sup Equipment Used REd Reps/Minutes 15 sec each direction Comments reports wrist tiring, elbow litle sore body blade Sitting Exercise Name trialed inPT Reps/Minutes 20 SH each Comments fwd punch, 90 deg elbow IR/ER, punch down, OH forearm/wrist 6 way Sitting Exercise Name reviewed HEP: 6 way: flex, ext , RD, Pron, Supination Side left Resistance 2# DB (Lv 1 TB home anchored under foot) Equipment Used 1. seated 2. standing ok ext & supination ok Reps/Minutes 15 each Comments cued forearm on table stationary, only wrist mvt- pnfree finger opposition Sitting Exercise Name 1-5 tip>1-5 DIP> 1-2 IP Side left Resistance ROM Reps/Minutes 5 reps each Comments normal ROM 1-3 to PIP, 5th to mid palm finger extension Sitting Exercise Name 1-5 Side left Equipment Used palm face down table Reps/Minutes x5 Comments good form fist Sitting Exercise Name fist, claw AROM Side left Resistance AROM Equipment Used palm, prox base MCP Reps/Minutes 5x Comments improved post manual wrist flex/ext Sitting Exercise Name rope rolling up/down Side bilateral Resistance 2# DB Reps/Minutes x3 reps Comments feels fine elbow flex/ext Side bilateral Resistance 3#db Reps/Minutes x12 Comments cued scap retraction, better no twinge post L shld Manual Therapy Treatment Soft Tissue Mobilization L hand Body Location 1> 2-5 intrinsics, distal tendons Mobilization Type Cross-Friction,Myofascial Release,Strumming,Sustained Pressure,Other Body Position Hooklying Comments manual Joint Mobilizations Wrist Joint carpal row Direction med, lat glide Grade II Body Position seated Comments pnfree response 1-5 MTP & finger jts Joint DIP, IP, PIP Direction PA, AP, rotation, flex (while stabilize shaft) Grade I Body Position seated Comments gentle manual and ed self, more sensitive 5>4th MTP and DIP most restricted, gained ROM PT-OP-R Modalities Start: 07/02/23 15:37 Freq: Status: Active Protocol: Document 07/09/23 10:32 SAK (Rec: 07/09/23 11:43 SAK [id number]) Electric Stimulation Electric Stimulation Interferential Current (IFC) Body Location left shoulder Intensity 15 Target/Sweep Sweep Combined With Heat/Cold Cold Pack Comments also ice pack to left wrist PT-OP-T Assessment and Plan Start: 07/02/23 15:37 Freq: Status: Active Protocol: Document 07/24/23 10:34 SP (Rec: 07/24/23 11:20 SP [id number]) Physical Therapy Assessment Goals Three Impairment edema left UE Short Term Goal (STG) decrease edema by at least 50% to allow improved use of left UE 07/18/23: MET GOAL: reduction in L elbow edema at least 60 %. STG Duration 08/18/23 GOAL MET 07/18/23 Mail Reader Goal (LTG) Decrease edema by at least 75% to allow patient to return to prior level of function with left UE 07/18/23: progressing reduction R anteromedial elbow 60% since last tx. LTG Duration 10/01/23 PRogresing 07/18/23 Two Impairment quickdash UE disability index score 84% Impairment poor activity tolerance Short Term Goal (STG) decrease Quickdash score to no greater than 50% as measure of improved ability to use left UE STG Duration 08/18/23 Senior Living Goal (LTG) decrease Quickdash score to no greater than 20% as measure of improved ability to use left UE for all usual activities including ability to sleep without being woken due to pain LTG Duration 10/01/23 One Impairment pain left UE as high as 8/10 Impairment shoulder, scapula, elbow, wrist pain Short Term Goal (STG) Decrease pain to no greater than 4/10 with all usual activities STG Duration 08/18/23 Senior Living Goal (LTG) Decrease pain to no greater than 2/10 with all usual activities LTG Duration 10/01/23 Assessment Summary Assessment Pt making gains in finger ROM, still some discomfort 3-5 MCPs at intrinsic painted region, better post manual. No adverse affects to progressed resistance with flex bar and dowel/rope rolling for wrist functional ROM strengthening. Pt reports will try using hammer for similarity in resisted ossicilating wt motions home. Next tx will progress L shld strengthening. No adverse affects to resisted shld ext since last tx, ran out time to review today. Physical Therapy Plan Frequency and Duration Frequency of Treatment 2x/Week Duration of treatment (weeks) 12 Plan of Care Start Date 07/03/23 Plan of Care End Date 10/01/23 Therapeutic Interventions Therapeutic Interventions Home Exercise Program,Manual Therapy,Patient/Caregiver Education,Self-Care/Home Management,Soft Tissue Mobilization,Taping, Therapeutic Activities, Therapeutic Exercises Modalities Cold Pack/Ice Massage,Electric Stimulation,Hot Packs, Infrared Therapy,Iontophoresis ,Ultrasound Other Therapeutic Interventions edema management Next Visit Focus/Plan Next Note Type Treatment Note Next Visit Plan Review HEP: wrist hammer dynamic motions, shld ext. Next add: wall posture and UE strengthening TB. wrist functional raking motions. POC: Instruct in use of patient's TENS if brings B UppTrap/BLevScap. Continue per PT gentle ther ex and manual therapy to decrease muscle tension and pain and dec edema. IFES and ice pack PRN.
--- NOTE | 2023-07-29 15:01 | PT.OTN ---
Current Diagnoses Effusion, left wrist (07/29/23) Pain in left shoulder (07/29/23) Pain in left wrist (07/29/23) Physical Therapy Treatment Note PT-OP-A Visit Information Start: 07/02/23 15:37 Freq: Status: Active Protocol: Document 07/29/23 08:16 SAK (Rec: 07/29/23 09:00 SAK [id number]) Out-Patient Physical Therapy Visit Information Visit Information Visit Type Treatment Note Visit Start Time 08:16 Visit Stop Time 09:06 Visit Number 7 Number of IP ARCHITECT Visits 0 Evaluation Information Evaluation Date 07/03/23 PT-OP-B Current Condition Start: 07/02/23 15:37 Freq: Status: Active Protocol: Document 07/09/23 10:32 SAK (Rec: 07/09/23 11:43 SAK [id number]) Current Condition History of Current Condition Onset Date 3 weeks ago Current Complaints left shoulder, neck, elbow, and wrist pain History of Current Condition was reaching up and back with left hand for seatbelt, immediate onset left shoulder pain and left wrist pain . Went into pool for exercise right after and it flared up. Pain has been moderate to evere with swelling into her left elbow and forearm. ordered PT for shoulder and x- ray for wrist last week. Hs been using ice, immobilizer left hand. Tingling into left elbow and lateral 2 fingers. Pain interrupting her sleep. Very swollen elbow and wrist/ hand. Prior Treatments and Tests wrist x-ray: negative, shoulder x-ray negative has CT scheduled for wrist Treatment Goals Patient/Caregiver Goals decrease pain and swelling and be able to resume normal use of her left UE PT-OP-C Subjective Start: 07/02/23 15:37 Freq: Status: Active Protocol: Document 07/29/23 08:16 SAK (Rec: 07/29/23 09:00 SAK [id number]) OP-PT Subjective Patient Comments Patient Comments Reports increased pain after last PT session, improved some after aquatic exercise. Pain 3/10 hand, elbow, shoulder. Hasn't iced or worn compression recently. States doctor recently said they thought the pain coming from cervical spine. Hasn't been on Prednisone x 5 days. PT-OP-F Manual Assessment Start: 07/02/23 15:37 Freq: Status: Active Protocol: Document 07/03/23 13:48 SAK (Rec: 07/07/23 13:55 [facility] [id number]) Manual Assessments Soft Tissue Assessment Soft Tissue Mobility Assessment intact PT-OP-H Neuro Start: 07/02/23 15:37 Freq: Status: Active Protocol: Document 07/03/23 13:48 [facility] (Rec: 07/07/23 13:55 [facility] [id number]) Sensation Evaluation Gross Sensation Gross Sensation Left UE Impaired Sensation Description Paresthesia,Numbness,Tingling PT-OP-J Posture/Palpation/Skin Start: 07/02/23 15:37 Freq: Status: Active Protocol: Document 07/03/23 13:48 [facility] (Rec: 07/07/23 13:55 [facility] [id number]) Posture Evaluation Position Sitting Head/C-Spine Posture Forward Head Shoulder Posture (L) Rounded,(R) Rounded Scapula Posture (L) Protracted,(R) Protracted Arm Posture (L) Internally Rotated,(R) Internally Rotated PT-OP-K Range of Motion Start: 07/02/23 15:37 Freq: Status: Active Protocol: Document 07/03/23 13:48 [facility] (Rec: 07/07/23 13:55 [facility] [id number]) Cervical Spine Range of Motion Cervical Spine Active Comments WNL Shoulder Goniometric Range of Motion Shoulder Left Shoulder ROM WFL No Flexion 155 Extension 25 Abduction 145 Right Active Shoulder ROM WFL Yes Shoulder ROM Limitations Shoulder ROM Limitations Pain,Swelling Elbow/Forearm Range of Motion Elbow/Forearm Left Active Elbow/Forearm ROM WFL No Elbow Flexion (degrees) 105 Elbow Extension (degrees) 20 Right Active Elbow/Forearm ROM WFL Yes Wrist Goniometric Range of Motion Wrist Left Flexion Active (degrees) 15 Extension Active (degrees) 10 Right Wrist ROM WFL Yes ROM Limitations Wrist Limitations of Range of Motion Pain,Swelling PT-OP-L Special Tests Start: 07/02/23 15:37 Freq: Status: Active Protocol: Document 07/03/23 13:48 [facility] (Rec: 07/07/23 13:55 [facility] [id number]) Special Tests Shoulder Special Tests Elevation Impingement Test Results - Drop Arm Rotator Cuff Test Results - Elbow Special Tests Scar Biceps Test Results + PT-OP-M Strength Start: 07/02/23 15:37 Freq: Status: Active Protocol: Document 07/03/23 13:48 [facility] (Rec: 07/07/23 13:55 [facility] [id number]) Shoulder Strength Shoulder Manual Muscle Testing Left Comments deferred due to pain Right Comments WNL Elbow/Forearm Strength Elbow and Forearm Manual Muscle Testing Left Flexion (C6) 4- Good- Extension (C7) 4- Good- Comments limited by pain Right Flexion (C6) 5 Normal Extension (C7) 5 Normal PT-OP-Q Treatments Start: 07/02/23 15:37 Freq: Status: Active Protocol: Document 07/29/23 08:16 [facility] (Rec: 07/29/23 09:00 [facility] [id number]) Cardio Equipment Recumbent Stepper (Sci-Fit) Duration (Minutes) 5 Resistance 1 Seat Position 14 Other denied pain. Therapeutic Exercises Supine Exercises shoulder flexion Reps/Minutes 5x10 Comments cues for painfree ROM serratus punch Reps/Minutes 10x pec stretch Supine Exercise Name major and minor Side bilateral Equipment Used no pillow needed under head Reps/Minutes 30 Comments good gentle pec stretch Standing Exercises postural correction Equipment Used SPC, mirror Reps/Minutes 5 min Comments static and dynamic walking c/s sb, rot Reps/Minutes 5x row Resistance L1 TB Reps/Minutes 10x Comments verbal and tactile cues for scap movement shld ext Standing Exercise Name review Resistance TB #1 Reps/Minutes x10 Comments cued CS NS, TA- good postural scap and UE effort, pnfree wall posture Standing Exercise Name mirror posture today Reps/Minutes 3 min Comments verbal and tactile cues for correction Manual Therapy Treatment Soft Tissue Mobilization c/s, UT Body Location B UT, LS, periscap Mobilization Type Myofascial Release,Strumming, Sustained Pressure Intensity/Depth Moderate Body Position Hooklying Comments also s/l Self-Care/Home Management Treatment Education Patient Education Home Exercise Program,Pain Management Other Education edema management, obtain compression sleeve; will need to discuss further and show options again. PT-OP-R Modalities Start: 07/02/23 15:37 Freq: Status: Active Protocol: Document 07/29/23 08:16 [facility] (Rec: 07/29/23 09:00 [facility] [id number]) Hot Pack/Cold Pack Treatment ice Location left elbow and wrist Patient Position Hooklying Patient Tolerance Good PT-OP-T Assessment and Plan Start: 07/02/23 15:37 Freq: Status: Active Protocol: Document 07/29/23 08:16 [facility] (Rec: 07/29/23 09:00 [facility] [id number]) Physical Therapy Assessment Goals Three Impairment edema left UE Short Term Goal (STG) decrease edema by at least 50% to allow improved use of left UE 07/18/23: MET GOAL: reduction in L elbow edema at least 60 %. STG Duration 08/18/23 GOAL MET 07/18/23 Longterm Goal (LTG) Decrease edema by at least 75% to allow patient to return to prior level of function with left UE 07/18/23: progressing reduction R anteromedial elbow 60% since last tx. LTG Duration 10/01/23 PRogresing 07/18/23 Two Impairment quickdash UE disability index score 84% Impairment poor activity tolerance Short Term Goal (STG) decrease Quickdash score to no greater than 50% as measure of improved ability to use left UE STG Duration 08/18/23 [employer] Goal (LTG) decrease Quickdash score to no greater than 20% as measure of improved ability to use left UE for all usual activities including ability to sleep without being woken due to pain LTG Duration 10/01/23 One Impairment pain left UE as high as 8/10 Impairment shoulder, scapula, elbow, wrist pain Short Term Goal (STG) Decrease pain to no greater than 4/10 with all usual activities STG Duration 08/18/23 [employer] Goal (LTG) Decrease pain to no greater than 2/10 with all usual activities LTG Duration 10/01/23 Assessment Summary Assessment instructed resume ice and compression. Mod verbal and tactile cues for correct technique and muscle activation left with row and shoulder extension. Recommended compression sleeve for left UE. Needs further strengthening and stab. Dec pain with periscapular STM Physical Therapy Plan Frequency and Duration Frequency of Treatment 2x/Week Duration of treatment (weeks) 12 Plan of Care Start Date 07/03/23 Plan of Care End Date 10/01/23 Therapeutic Interventions Therapeutic Interventions Home Exercise Program,Manual Therapy,Patient/Caregiver Education,Self-Care/Home Management,Soft Tissue Mobilization,Taping, Therapeutic Activities, Therapeutic Exercises Modalities Cold Pack/Ice Massage,Electric Stimulation,Hot Packs, Infrared Therapy,Iontophoresis ,Ultrasound Other Therapeutic Interventions edema management Next Visit Focus/Plan Next Note Type Treatment Note Next Visit Plan consider use of laser treatment left elbow. Further HEP review and progression of ther ex as tolerated.
--- NOTE | 2023-08-01 11:12 | PT.OTN ---
Current Diagnoses Effusion, left wrist (08/01/23) Pain in left shoulder (08/01/23) Pain in left wrist (08/01/23) Physical Therapy Treatment Note PT-OP-A Visit Information Start: 07/02/23 15:37 Freq: Status: Active Protocol: Document 08/01/23 08:14 SAK (Rec: 08/01/23 09:02 SAK [id number]) Out-Patient Physical Therapy Visit Information Visit Information Visit Type Treatment Note Visit Start Time 08:15 Visit Stop Time 09:09 Visit Number 8 Number of [employer] Visits 0 Evaluation Information Evaluation Date 07/03/23 PT-OP-B Current Condition Start: 07/02/23 15:37 Freq: Status: Active Protocol: Document 07/09/23 10:32 SAK (Rec: 07/09/23 11:43 SAK [id number]) Current Condition History of Current Condition Onset Date 3 weeks ago Current Complaints left shoulder, neck, elbow, and wrist pain History of Current Condition was reaching up and back with left hand for seatbelt, immediate onset left shoulder pain and left wrist pain . Went into pool for exercise right after and it flared up. Pain has been moderate to evere with swelling into her left elbow and forearm. ordered PT for shoulder and x- ray for wrist last week. Hs been using ice, immobilizer left hand. Tingling into left elbow and lateral 2 fingers. Pain interrupting her sleep. Very swollen elbow and wrist/ hand. Prior Treatments and Tests wrist x-ray: negative, shoulder x-ray negative has CT scheduled for wrist Treatment Goals Patient/Caregiver Goals decrease pain and swelling and be able to resume normal use of her left UE PT-OP-C Subjective Start: 07/02/23 15:37 Freq: Status: Active Protocol: Document 08/01/23 08:14 SAK (Rec: 08/01/23 09:02 SAK [id number]) OP-PT Subjective Patient Comments Patient Comments wrist worst, still some elbow pain. Feels weak, difficult to lift pots and pans especially cast iron PT-OP-F Manual Assessment Start: 07/02/23 15:37 Freq: Status: Active Protocol: Document 07/03/23 13:48 SAK (Rec: 07/07/23 13:55 SAK [id number]) Manual Assessments Soft Tissue Assessment Soft Tissue Mobility Assessment intact PT-OP-H Neuro Start: 07/02/23 15:37 Freq: Status: Active Protocol: Document 07/03/23 13:48 [facility] (Rec: 07/07/23 13:55 [facility] [id number]) Sensation Evaluation Gross Sensation Gross Sensation Left UE Impaired Sensation Description Paresthesia,Numbness,Tingling PT-OP-J Posture/Palpation/Skin Start: 07/02/23 15:37 Freq: Status: Active Protocol: Document 07/03/23 13:48 [facility] (Rec: 07/07/23 13:55 [facility] [id number]) Posture Evaluation Position Sitting Head/C-Spine Posture Forward Head Shoulder Posture (L) Rounded,(R) Rounded Scapula Posture (L) Protracted,(R) Protracted Arm Posture (L) Internally Rotated,(R) Internally Rotated PT-OP-K Range of Motion Start: 07/02/23 15:37 Freq: Status: Active Protocol: Document 07/03/23 13:48 [facility] (Rec: 07/07/23 13:55 [facility] [id number]) Cervical Spine Range of Motion Cervical Spine Active Comments WNL Shoulder Goniometric Range of Motion Shoulder Left Shoulder ROM WFL No Flexion 155 Extension 25 Abduction 145 Right Active Shoulder ROM WFL Yes Shoulder ROM Limitations Shoulder ROM Limitations Pain,Swelling Elbow/Forearm Range of Motion Elbow/Forearm Left Active Elbow/Forearm ROM WFL No Elbow Flexion (degrees) 105 Elbow Extension (degrees) 20 Right Active Elbow/Forearm ROM WFL Yes Wrist Goniometric Range of Motion Wrist Left Flexion Active (degrees) 15 Extension Active (degrees) 10 Right Wrist ROM WFL Yes ROM Limitations Wrist Limitations of Range of Motion Pain,Swelling PT-OP-L Special Tests Start: 07/02/23 15:37 Freq: Status: Active Protocol: Document 07/03/23 13:48 [facility] (Rec: 07/07/23 13:55 [facility] [id number]) Special Tests Shoulder Special Tests Elevation Impingement Test Results - Drop Arm Rotator Cuff Test Results - Elbow Special Tests Scar Biceps Test Results + PT-OP-M Strength Start: 07/02/23 15:37 Freq: Status: Active Protocol: Document 07/03/23 13:48 [facility] (Rec: 07/07/23 13:55 [facility] [id number]) Shoulder Strength Shoulder Manual Muscle Testing Left Comments deferred due to pain Right Comments WNL Elbow/Forearm Strength Elbow and Forearm Manual Muscle Testing Left Flexion (C6) 4- Good- Extension (C7) 4- Good- Comments limited by pain Right Flexion (C6) 5 Normal Extension (C7) 5 Normal PT-OP-Q Treatments Start: 07/02/23 15:37 Freq: Status: Active Protocol: Document 08/01/23 08:14 [facility] (Rec: 08/01/23 09:02 [facility] [id number]) Therapeutic Exercises Sitting Exercises radial deviation Sitting Exercise Name radial/ulnar Reps/Minutes 10 Comments gravity elim wrist flex Sitting Exercise Name AROM Reps/Minutes 10x Comments anti-grav wrist ext Sitting Exercise Name AROM Reps/Minutes 10x Comments antigrav putty Resistance green issued Reps/Minutes 5 SH x10 Standing Exercises postural correction Equipment Used SPC, mirror Reps/Minutes 5 min Comments static and dynamic walking Manual Therapy Treatment Soft Tissue Mobilization L hand Body Location 1> 2-5 intrinsics, distal tendons Mobilization Type Cross-Friction,Myofascial Release,Strumming,Sustained Pressure,Other Body Position Sitting Comments manual Self-Care/Home Management Treatment Education Other Education wrist extension and flexion HEP, no weight, progress to use of light weights as tolerated. PT-OP-R Modalities Start: 07/02/23 15:37 Freq: Status: Active Protocol: Document 08/01/23 08:14 [facility] (Rec: 08/01/23 09:02 [facility] [id number]) Infrared Treatment Treatment left elbow Body Position Sidelying Continuous/Pulsed Continuous Program or Protocal chronic pain Comments 6 locations during paraffin wax treatment left hand and wrist Paraffin Bath Treatment Left Hand Number Wax Layers (layers) 5 Patient Tolerance Good PT-OP-T Assessment and Plan Start: 07/02/23 15:37 Freq: Status: Active Protocol: Document 08/01/23 08:14 [facility] (Rec: 08/01/23 09:02 [facility] [id number]) Physical Therapy Assessment Goals Three Impairment edema left UE Short Term Goal (STG) decrease edema by at least 50% to allow improved use of left UE 07/18/23: MET GOAL: reduction in L elbow edema at least 60 %. STG Duration 08/18/23 GOAL MET 07/18/23 Usp Goal (LTG) Decrease edema by at least 75% to allow patient to return to prior level of function with left UE 07/18/23: progressing reduction R anteromedial elbow 60% since last tx. LTG Duration 10/01/23 PRogresing 07/18/23 Two Impairment quickdash UE disability index score 84% Impairment poor activity tolerance Short Term Goal (STG) decrease Quickdash score to no greater than 50% as measure of improved ability to use left UE STG Duration 08/18/23 Usp Goal (LTG) decrease Quickdash score to no greater than 20% as measure of improved ability to use left UE for all usual activities including ability to sleep without being woken due to pain LTG Duration 10/01/23 One Impairment pain left UE as high as 8/10 Impairment shoulder, scapula, elbow, wrist pain Short Term Goal (STG) Decrease pain to no greater than 4/10 with all usual activities STG Duration 08/18/23 Coagulating Operator Goal (LTG) Decrease pain to no greater than 2/10 with all usual activities LTG Duration 10/01/23 Assessment Summary Assessment Good response to paraffin and laser, manual treatment, updated HEP with wrist flex/ ext, radial and ulnar deviation as tolerated. progressed to green theraputty . Physical Therapy Plan Frequency and Duration Frequency of Treatment 2x/Week Duration of treatment (weeks) 12 Plan of Care Start Date 07/03/23 Plan of Care End Date 10/01/23 Therapeutic Interventions Therapeutic Interventions Home Exercise Program,Manual Therapy,Patient/Caregiver Education,Self-Care/Home Management,Soft Tissue Mobilization,Taping, Therapeutic Activities, Therapeutic Exercises Modalities Cold Pack/Ice Massage,Electric Stimulation,Hot Packs, Infrared Therapy,Iontophoresis ,Ultrasound Other Therapeutic Interventions edema management Next Visit Focus/Plan Next Note Type Treatment Note Next Visit Plan Evaluate response today's treatment. continue modalities as indicated, gentle progression of ther ex as tolerated.
--- NOTE | 2023-08-05 09:49 | PT.OTN ---
Current Diagnoses Effusion, left wrist (08/05/23) Pain in left shoulder (08/05/23) Pain in left wrist (08/05/23) Physical Therapy Treatment Note PT-OP-A Visit Information Start: 07/02/23 15:37 Freq: Status: Active Protocol: Document 08/05/23 09:05 SP (Rec: 08/05/23 09:47 SP [id number]) Out-Patient Physical Therapy Visit Information Visit Information Visit Type Treatment Note Visit Start Time 09:05 Visit Stop Time 09:49 Visit Number 9 Number of [facility] Visits 1 Evaluation Information Evaluation Date 07/03/23 PT-OP-B Current Condition Start: 07/02/23 15:37 Freq: Status: Active Protocol: Document 07/09/23 10:32 SAK (Rec: 07/09/23 11:43 SAK [id number]) Current Condition History of Current Condition Onset Date 3 weeks ago Current Complaints left shoulder, neck, elbow, and wrist pain History of Current Condition was reaching up and back with left hand for seatbelt, immediate onset left shoulder pain and left wrist pain . Went into pool for exercise right after and it flared up. Pain has been moderate to evere with swelling into her left elbow and forearm. ordered PT for shoulder and x- ray for wrist last week. Hs been using ice, immobilizer left hand. Tingling into left elbow and lateral 2 fingers. Pain interrupting her sleep. Very swollen elbow and wrist/ hand. Prior Treatments and Tests wrist x-ray: negative, shoulder x-ray negative has CT scheduled for wrist Treatment Goals Patient/Caregiver Goals decrease pain and swelling and be able to resume normal use of her left UE PT-OP-C Subjective Start: 07/02/23 15:37 Freq: Status: Active Protocol: Document 08/05/23 09:05 SP (Rec: 08/05/23 09:47 SP [id number]) OP-PT Subjective Patient Comments Patient Comments Pt reports the green putty is to hard and caused discomfort. She reports her L shoulder doing better with HEP, not sure if her L hand pain is arthritis or more issues mid forearm to medial wrist to 3-5 fingers. She uses blue putty (yellow comparison in [facility] dept). PT-OP-F Manual Assessment Start: 07/02/23 15:37 Freq: Status: Active Protocol: Document 07/03/23 13:48 SAK (Rec: 07/07/23 13:55 [facility] [id number]) Manual Assessments Soft Tissue Assessment Soft Tissue Mobility Assessment intact PT-OP-H Neuro Start: 07/02/23 15:37 Freq: Status: Active Protocol: Document 07/03/23 13:48 [facility] (Rec: 07/07/23 13:55 [facility] [id number]) Sensation Evaluation Gross Sensation Gross Sensation Left UE Impaired Sensation Description Paresthesia,Numbness,Tingling PT-OP-J Posture/Palpation/Skin Start: 07/02/23 15:37 Freq: Status: Active Protocol: Document 07/03/23 13:48 [facility] (Rec: 07/07/23 13:55 [facility] [id number]) Posture Evaluation Position Sitting Head/C-Spine Posture Forward Head Shoulder Posture (L) Rounded,(R) Rounded Scapula Posture (L) Protracted,(R) Protracted Arm Posture (L) Internally Rotated,(R) Internally Rotated PT-OP-K Range of Motion Start: 07/02/23 15:37 Freq: Status: Active Protocol: Document 07/03/23 13:48 [facility] (Rec: 07/07/23 13:55 [facility] [id number]) Cervical Spine Range of Motion Cervical Spine Active Comments WNL Shoulder Goniometric Range of Motion Shoulder Left Shoulder ROM WFL No Flexion 155 Extension 25 Abduction 145 Right Active Shoulder ROM WFL Yes Shoulder ROM Limitations Shoulder ROM Limitations Pain,Swelling Elbow/Forearm Range of Motion Elbow/Forearm Left Active Elbow/Forearm ROM WFL No Elbow Flexion (degrees) 105 Elbow Extension (degrees) 20 Right Active Elbow/Forearm ROM WFL Yes Wrist Goniometric Range of Motion Wrist Left Flexion Active (degrees) 15 Extension Active (degrees) 10 Right Wrist ROM WFL Yes ROM Limitations Wrist Limitations of Range of Motion Pain,Swelling PT-OP-L Special Tests Start: 07/02/23 15:37 Freq: Status: Active Protocol: Document 07/03/23 13:48 [facility] (Rec: 07/07/23 13:55 [facility] [id number]) Special Tests Shoulder Special Tests Elevation Impingement Test Results - Drop Arm Rotator Cuff Test Results - Elbow Special Tests Scar Biceps Test Results + PT-OP-M Strength Start: 07/02/23 15:37 Freq: Status: Active Protocol: Document 07/03/23 13:48 SAK (Rec: 07/07/23 13:55 SAK [id number]) Shoulder Strength Shoulder Manual Muscle Testing Left Comments deferred due to pain Right Comments WNL Elbow/Forearm Strength Elbow and Forearm Manual Muscle Testing Left Flexion (C6) 4- Good- Extension (C7) 4- Good- Comments limited by pain Right Flexion (C6) 5 Normal Extension (C7) 5 Normal PT-OP-Q Treatments Start: 07/02/23 15:37 Freq: Status: Active Protocol: Document 08/05/23 09:05 SP (Rec: 08/05/23 09:47 SP [id number]) Therapeutic Exercises Sitting Exercises radial deviation Sitting Exercise Name radial/ulnar Side left Resistance AROM, 2# DB/trial hammer for home application Reps/Minutes 10 each Comments gravity elim wrist flex Sitting Exercise Name HEP reviewed Side left Resistance AROM, 2# DB/trial hammer for home application Reps/Minutes 10x each Comments anti-grav wrist ext Sitting Exercise Name HEP reviewed Side left Resistance AROM, 2# DB/trial hammer for home application Reps/Minutes 10x each Comments antigrav putty Sitting Exercise Name claw 2-5 flexion into putty isometric squeeze Resistance red issued Reps/Minutes 10 SH x10 finger extension Sitting Exercise Name 1st MCP ext & abd isometric Side left Reps/Minutes 10 SH x5 2x/day Comments added to HEP- decreased medial muscle tension discomfort forearm pron/sup Sitting Exercise Name HEP reviewed Side left Resistance AROM, 2# DB/trial hammer for home application Reps/Minutes 10 each Comments antigrav Manual Therapy Treatment Soft Tissue Mobilization L hand Body Location 1st MCP jt mm att, opponens pollicis, flex pollicis brevis , abd poll brevis Mobilization Type Cross-Friction,Myofascial Release,Strumming,Sustained Pressure,Other Body Position Sitting Comments manual STMS, MWM /c FM flex/ ext, abd/add, opposition Joint Mobilizations Wrist Joint carpal row med/lat glide, distal Ulna PA Grade II Body Position seated Comments pnfree response 1-5 MTP & finger jts Joint MCP, IP Direction PA, AP, rotation, flex (while stabilize shaft) Grade II Body Position seated Comments gentle manual and ed self, more sensitive 4-5th MTP PT-OP-R Modalities Start: 07/02/23 15:37 Freq: Status: Active Protocol: Document 08/05/23 09:05 SP (Rec: 08/05/23 09:47 SP [id number]) Paraffin Bath Treatment Left Hand Number Wax Layers (layers) 10 Patient Tolerance Good PT-OP-T Assessment and Plan Start: 07/02/23 15:37 Freq: Status: Active Protocol: Document 08/05/23 09:05 SP (Rec: 08/05/23 09:47 SP [id number]) Physical Therapy Assessment Goals Three Impairment edema left UE Short Term Goal (STG) decrease edema by at least 50% to allow improved use of left UE 07/18/23: MET GOAL: reduction in L elbow edema at least 60 %. STG Duration 08/18/23 GOAL MET 07/18/23 Snf Goal (LTG) Decrease edema by at least 75% to allow patient to return to prior level of function with left UE 07/18/23: progressing reduction R anteromedial elbow 60% since last tx. LTG Duration 10/01/23 PRogresing 07/18/23 Two Impairment quickdash UE disability index score 84% Impairment poor activity tolerance Short Term Goal (STG) decrease Quickdash score to no greater than 50% as measure of improved ability to use left UE STG Duration 08/18/23 Snf Goal (LTG) decrease Quickdash score to no greater than 20% as measure of improved ability to use left UE for all usual activities including ability to sleep without being woken due to pain LTG Duration 10/01/23 One Impairment pain left UE as high as 8/10 Impairment shoulder, scapula, elbow, wrist pain Short Term Goal (STG) Decrease pain to no greater than 4/10 with all usual activities STG Duration 08/18/23 Snf Goal (LTG) Decrease pain to no greater than 2/10 with all usual activities LTG Duration 10/01/23 Assessment Summary Assessment Pt responds well to manual, good understanding and response self manual isometric L 1st MCP ext and abd isometric to inhibit muscle tension and add strengthening component, declined HO. Cued light grasp of DB/ hammer during wrist/forearm HEP with no reports adverse affects/ discomfort in L hand. Pt welcomed parrafin end tx. Physical Therapy Plan Frequency and Duration Frequency of Treatment 2x/Week Duration of treatment (weeks) 12 Plan of Care Start Date 07/03/23 Plan of Care End Date 05/21/24 Therapeutic Interventions Therapeutic Interventions Home Exercise Program,Manual Therapy,Patient/Caregiver Education,Self-Care/Home Management,Soft Tissue Mobilization,Taping, Therapeutic Activities, Therapeutic Exercises Modalities Cold Pack/Ice Massage,Electric Stimulation,Hot Packs, Infrared Therapy,Iontophoresis ,Ultrasound Other Therapeutic Interventions edema management Next Visit Focus/Plan Next Note Type Treatment Note Next Visit Plan Assess response last visit treatment & added 1st MCP abd/ ext isometric and self STMs/ MWM as in tx. POC: Continue modalities as indicated, gentle progression of ther ex as tolerated.
--- NOTE | 2023-08-08 15:46 | PT-OP ANOTE ---
Pt cancelled 08/07 appt in advance, no reason given.
--- NOTE | 2023-08-20 10:29 | PT.OTN ---
Current Diagnoses Effusion, left wrist (08/20/23) Pain in left shoulder (08/20/23) Pain in left wrist (08/20/23) Physical Therapy Treatment Note PT-OP-A Visit Information Start: 07/02/23 15:37 Freq: Status: Active Protocol: Document 08/20/23 09:40 SAK (Rec: 08/20/23 10:28 [facility] [id number]) Out-Patient Physical Therapy Visit Information Visit Information Visit Type Treatment Note Visit Start Time 09:43 Visit Number 10 Number of COMMUNICATIONS TECHNICIAN Visits 0 PT-OP-B Current Condition Start: 07/02/23 15:37 Freq: Status: Active Protocol: Document 07/09/23 10:32 SAK (Rec: 07/09/23 11:43 [facility] [id number]) Current Condition History of Current Condition Onset Date 3 weeks ago Current Complaints left shoulder, neck, elbow, and wrist pain History of Current Condition was reaching up and back with left hand for seatbelt, immediate onset left shoulder pain and left wrist pain . Went into pool for exercise right after and it flared up. Pain has been moderate to evere with swelling into her left elbow and forearm. ordered PT for shoulder and x- ray for wrist last week. Hs been using ice, immobilizer left hand. Tingling into left elbow and lateral 2 fingers. Pain interrupting her sleep. Very swollen elbow and wrist/ hand. Prior Treatments and Tests wrist x-ray: negative, shoulder x-ray negative has CT scheduled for wrist Treatment Goals Patient/Caregiver Goals decrease pain and swelling and be able to resume normal use of her left UE PT-OP-C Subjective Start: 07/02/23 15:37 Freq: Status: Active Protocol: Document 08/20/23 09:40 [facility] (Rec: 08/20/23 10:28 [facility] [id number]) OP-PT Subjective Patient Comments Patient Comments Patient wanting to talk about POC. Wrist now ok, every once in awhile feels pain in shoulder joint. Reports terrible pain in shoulder blade today. Has been gardening a fair bit Patient Reported Progress Improving Patient Questionnaires Quick Dash- Upper Extremity Quick Dash UE Score 84 OP-PT Pain Assessment Pain Assessment Grid Paper Pain Assessment Grid Completed Yes Location left UE Pain Location Details see pain chart Intensity 9 Description Aching,Sharp,Shooting,Stabbing ,Tender,Tightness PT-OP-F Manual Assessment Start: 07/02/23 15:37 Freq: Status: Active Protocol: Document 07/03/23 13:48 SAK (Rec: 07/07/23 13:55 [facility] [id number]) Manual Assessments Soft Tissue Assessment Soft Tissue Mobility Assessment intact PT-OP-H Neuro Start: 07/02/23 15:37 Freq: Status: Active Protocol: Document 07/03/23 13:48 SAK (Rec: 07/07/23 13:55 [facility] [id number]) Sensation Evaluation Gross Sensation Gross Sensation Left UE Impaired Sensation Description Paresthesia,Numbness,Tingling PT-OP-J Posture/Palpation/Skin Start: 07/02/23 15:37 Freq: Status: Active Protocol: Document 07/03/23 13:48 SAK (Rec: 07/07/23 13:55 [facility] [id number]) Posture Evaluation Position Sitting Head/C-Spine Posture Forward Head Shoulder Posture (L) Rounded,(R) Rounded Scapula Posture (L) Protracted,(R) Protracted Arm Posture (L) Internally Rotated,(R) Internally Rotated PT-OP-K Range of Motion Start: 07/02/23 15:37 Freq: Status: Active Protocol: Document 07/03/23 13:48 SAK (Rec: 07/07/23 13:55 [facility] [id number]) Cervical Spine Range of Motion Cervical Spine Active Comments WNL Shoulder Goniometric Range of Motion Shoulder Left Shoulder ROM WFL No Flexion 155 Extension 25 Abduction 145 Right Active Shoulder ROM WFL Yes Shoulder ROM Limitations Shoulder ROM Limitations Pain,Swelling Elbow/Forearm Range of Motion Elbow/Forearm Left Active Elbow/Forearm ROM WFL No Elbow Flexion (degrees) 105 Elbow Extension (degrees) 20 Right Active Elbow/Forearm ROM WFL Yes Wrist Goniometric Range of Motion Wrist Left Flexion Active (degrees) 15 Extension Active (degrees) 10 Right Wrist ROM WFL Yes ROM Limitations Wrist Limitations of Range of Motion Pain,Swelling PT-OP-L Special Tests Start: 07/02/23 15:37 Freq: Status: Active Protocol: Document 07/03/23 13:48 SAK (Rec: 07/07/23 13:55 [facility] [id number]) Special Tests Shoulder Special Tests Elevation Impingement Test Results - Drop Arm Rotator Cuff Test Results - Elbow Special Tests Scar Biceps Test Results + PT-OP-M Strength Start: 07/02/23 15:37 Freq: Status: Active Protocol: Document 07/03/23 13:48 [facility] (Rec: 07/07/23 13:55 [facility] [id number]) Shoulder Strength Shoulder Manual Muscle Testing Left Comments deferred due to pain Right Comments WNL Elbow/Forearm Strength Elbow and Forearm Manual Muscle Testing Left Flexion (C6) 4- Good- Extension (C7) 4- Good- Comments limited by pain Right Flexion (C6) 5 Normal Extension (C7) 5 Normal PT-OP-Q Treatments Start: 07/02/23 15:37 Freq: Status: Active Protocol: Document 08/20/23 09:40 [facility] (Rec: 08/20/23 10:28 [facility] [id number]) Therapeutic Exercises Sitting Exercises shoulder shrugs Sitting Exercise Name meño and unil Comments review Standing Exercises row Standing Exercise Name review Resistance L1 TB Comments verbal and tactile cues for scap movement shld ext Standing Exercise Name review Resistance TB #1 Comments cued CS NS, TA- good postural scap and UE effort, pnfree Manual Therapy Treatment Soft Tissue Mobilization periscap Body Location UT, rhomboids Mobilization Type Myofascial Release,Strumming, Sustained Pressure Joint Mobilizations scapula Joint L Direction retraction/protraction, sup/ inf glide, UR with ABD AAROM Grade II Body Position R side Comments tactile cues inferior glide into ABD PT-OP-R Modalities Start: 07/02/23 15:37 Freq: Status: Active Protocol: Document 08/20/23 09:40 [facility] (Rec: 08/20/23 10:29 [facility] [id number]) Hot Pack/Cold Pack Treatment Hot Pack Location scapula, t/s Patient Position Hooklying Patient Tolerance Good PT-OP-T Assessment and Plan Start: 07/02/23 15:37 Freq: Status: Active Protocol: Document 08/20/23 09:40 [facility] (Rec: 08/20/23 10:28 [facility] [id number]) Physical Therapy Assessment Goals Three Impairment edema left UE Short Term Goal (STG) decrease edema by at least 50% to allow improved use of left UE 07/18/23: MET GOAL: reduction in L elbow edema at least 60 %. STG Duration 08/18/23 GOAL MET 07/18/23 Halfway Goal (LTG) Decrease edema by at least 75% to allow patient to return to prior level of function with left UE 07/18/23: progressing reduction R anteromedial elbow 60% since last tx. 08/20/23 LTG Duration 10/01/23 PRogresing 07/18/23 Two Impairment quickdash UE disability index score 84% Impairment poor activity tolerance Short Term Goal (STG) decrease Quickdash score to no greater than 50% as measure of improved ability to use left UE 08/20/23:goal met, score 27% STG Duration 08/18/23 Halfway Goal (LTG) decrease Quickdash score to no greater than 20% as measure of improved ability to use left UE for all usual activities including ability to sleep without being woken due to pain 08/20/23: reports would have been lower if not for exacerbation of shoulder blade pain. 27% LTG Duration 10/01/23 One Impairment pain left UE as high as 8/10 Impairment shoulder, scapula, elbow, wrist pain Short Term Goal (STG) Decrease pain to no greater than 4/10 with all usual activities 08/20/23; now none in wrist or elbow but moderate to severe in left scapula after gardening STG Duration 08/18/23 Orthodontic Technician Goal (LTG) Decrease pain to no greater than 2/10 with all usual activities LTG Duration 10/01/23 Assessment Summary Assessment Good progress with elbow and wrist pain, but exacerbation of left scapular pain, will move focus of PT to that region. Appears due to posterior chain weakness, postural impairment, poor body mechanics, overuse. Physical Therapy Plan Frequency and Duration Frequency of Treatment 2x/Week Duration of treatment (weeks) 12 Plan of Care Start Date 07/03/23 Plan of Care End Date 10/01/23 Therapeutic Interventions Therapeutic Interventions Home Exercise Program,Manual Therapy,Patient/Caregiver Education,Self-Care/Home Management,Soft Tissue Mobilization,Taping, Therapeutic Activities, Therapeutic Exercises Modalities Cold Pack/Ice Massage,Electric Stimulation,Hot Packs, Infrared Therapy,Iontophoresis ,Ultrasound Other Therapeutic Interventions edema management Next Visit Focus/Plan Next Note Type Treatment Note Next Visit Plan Continue PT for scapular mobilization, soft tissue mobilization and posterior chain strengthening.
--- NOTE | 2023-08-22 12:06 | PT.OTN ---
Current Diagnoses Effusion, left wrist (08/22/23) Pain in left shoulder (08/22/23) Pain in left wrist (08/22/23) Physical Therapy Treatment Note PT-OP-A Visit Information Start: 07/02/23 15:37 Freq: Status: Active Protocol: Document 08/22/23 11:20 SAK (Rec: 08/22/23 12:06 [facility] [id number]) Out-Patient Physical Therapy Visit Information Visit Information Visit Type Treatment Note Visit Start Time 11:20 Visit Stop Time 12:14 Visit Number 11 Evaluation Information Evaluation Date 07/03/23 PT-OP-B Current Condition Start: 07/02/23 15:37 Freq: Status: Active Protocol: Document 07/09/23 10:32 SAK (Rec: 07/09/23 11:43 [facility]AK [id number]) Current Condition History of Current Condition Onset Date 3 weeks ago Current Complaints left shoulder, neck, elbow, and wrist pain History of Current Condition was reaching up and back with left hand for seatbelt, immediate onset left shoulder pain and left wrist pain . Went into pool for exercise right after and it flared up. Pain has been moderate to evere with swelling into her left elbow and forearm. ordered PT for shoulder and x- ray for wrist last week. Hs been using ice, immobilizer left hand. Tingling into left elbow and lateral 2 fingers. Pain interrupting her sleep. Very swollen elbow and wrist/ hand. Prior Treatments and Tests wrist x-ray: negative, shoulder x-ray negative has CT scheduled for wrist Treatment Goals Patient/Caregiver Goals decrease pain and swelling and be able to resume normal use of her left UE PT-OP-C Subjective Start: 07/02/23 15:37 Freq: Status: Active Protocol: Document 08/22/23 11:20 SAK (Rec: 08/22/23 12:06 [facility] [id number]) OP-PT Subjective Patient Comments Patient Comments Better after last PT session, still hurting around scapula PT-OP-F Manual Assessment Start: 07/02/23 15:37 Freq: Status: Active Protocol: Document 07/03/23 13:48 SAK (Rec: 07/07/23 13:55 [facility]AK [id number]) Manual Assessments Soft Tissue Assessment Soft Tissue Mobility Assessment intact PT-OP-H Neuro Start: 07/02/23 15:37 Freq: Status: Active Protocol: Document 07/03/23 13:48 [facility] (Rec: 07/07/23 13:55 [facility] [id number]) Sensation Evaluation Gross Sensation Gross Sensation Left UE Impaired Sensation Description Paresthesia,Numbness,Tingling PT-OP-J Posture/Palpation/Skin Start: 07/02/23 15:37 Freq: Status: Active Protocol: Document 07/03/23 13:48 [facility] (Rec: 07/07/23 13:55 [facility] [id number]) Posture Evaluation Position Sitting Head/C-Spine Posture Forward Head Shoulder Posture (L) Rounded,(R) Rounded Scapula Posture (L) Protracted,(R) Protracted Arm Posture (L) Internally Rotated,(R) Internally Rotated PT-OP-K Range of Motion Start: 07/02/23 15:37 Freq: Status: Active Protocol: Document 07/03/23 13:48 [facility] (Rec: 07/07/23 13:55 [facility] [id number]) Cervical Spine Range of Motion Cervical Spine Active Comments WNL Shoulder Goniometric Range of Motion Shoulder Left Shoulder ROM WFL No Flexion 155 Extension 25 Abduction 145 Right Active Shoulder ROM WFL Yes Shoulder ROM Limitations Shoulder ROM Limitations Pain,Swelling Elbow/Forearm Range of Motion Elbow/Forearm Left Active Elbow/Forearm ROM WFL No Elbow Flexion (degrees) 105 Elbow Extension (degrees) 20 Right Active Elbow/Forearm ROM WFL Yes Wrist Goniometric Range of Motion Wrist Left Flexion Active (degrees) 15 Extension Active (degrees) 10 Right Wrist ROM WFL Yes ROM Limitations Wrist Limitations of Range of Motion Pain,Swelling PT-OP-L Special Tests Start: 07/02/23 15:37 Freq: Status: Active Protocol: Document 07/03/23 13:48 [facility] (Rec: 07/07/23 13:55 [facility] [id number]) Special Tests Shoulder Special Tests Elevation Impingement Test Results - Drop Arm Rotator Cuff Test Results - Elbow Special Tests Scar Biceps Test Results + PT-OP-M Strength Start: 07/02/23 15:37 Freq: Status: Active Protocol: Document 07/03/23 13:48 [facility] (Rec: 07/07/23 13:55 [facility] [id number]) Shoulder Strength Shoulder Manual Muscle Testing Left Comments deferred due to pain Right Comments WNL Elbow/Forearm Strength Elbow and Forearm Manual Muscle Testing Left Flexion (C6) 4- Good- Extension (C7) 4- Good- Comments limited by pain Right Flexion (C6) 5 Normal Extension (C7) 5 Normal PT-OP-Q Treatments Start: 07/02/23 15:37 Freq: Status: Active Protocol: Document 08/22/23 11:20 [facility] (Rec: 08/22/23 12:06 [facility] [id number]) Therapeutic Exercises Supine Exercises pec stretch Supine Exercise Name major and minor Side bilateral Equipment Used no pillow needed under head Reps/Minutes 30 Comments good gentle pec stretch Sitting Exercises shoulder shrugs Sitting Exercise Name meño and unil Comments review c/s rot, sb Side bilateral Reps/Minutes 5x Standing Exercises counter stretch Reps/Minutes 2x30 overhead stretch Reps/Minutes 2x30 shoulder IR/ER Reps/Minutes 10x Comments long axis Shoulder shrugts Standing Exercise Name meño and unil Reps/Minutes 10 postural correction Equipment Used wall Comments static and dynamic walking c/s sb, rot Reps/Minutes 5x row Resistance L1 TB Reps/Minutes 10x Comments verbal and tactile cues for scap movement shld ext Resistance TB #1 Comments cued CS NS, TA- good postural scap and UE effort, pnfree Other Exercises self STMs Other Exercise Name shown theracane, encouraged try standard cane at home Manual Therapy Treatment Soft Tissue Mobilization periscap Body Location UT, rhomboids, LS Mobilization Type Myofascial Release,Strumming, Sustained Pressure Joint Mobilizations scapula Joint L Direction retraction/protraction, sup/ inf glide, UR with ABD AAROM Grade II Body Position R side Comments tactile cues inferior glide into ABD PT-OP-R Modalities Start: 07/02/23 15:37 Freq: Status: Active Protocol: Document 08/22/23 11:20 [facility] (Rec: 08/22/23 12:06 [facility] [id number]) Hot Pack/Cold Pack Treatment Hot Pack Location left shoulder, LS, UT PT-OP-T Assessment and Plan Start: 07/02/23 15:37 Freq: Status: Active Protocol: Document 08/22/23 11:20 [facility] (Rec: 08/22/23 12:06 [facility] [id number]) Physical Therapy Assessment Goals Three Impairment edema left UE Short Term Goal (STG) decrease edema by at least 50% to allow improved use of left UE 07/18/23: MET GOAL: reduction in L elbow edema at least 60 %. STG Duration 08/18/23 GOAL MET 3/7/24 Transport Engineer Goal (LTG) Decrease edema by at least 75% to allow patient to return to prior level of function with left UE 07/18/23: progressing reduction R anteromedial elbow 60% since last tx. 08/20/23 LTG Duration 10/01/23 PRogresing 07/18/23 Two Impairment quickdash UE disability index score 84% Impairment poor activity tolerance Short Term Goal (STG) decrease Quickdash score to no greater than 50% as measure of improved ability to use left UE 08/20/23:goal met, score 27% STG Duration 08/18/23 Transport Engineer Goal (LTG) decrease Quickdash score to no greater than 20% as measure of improved ability to use left UE for all usual activities including ability to sleep without being woken due to pain 08/20/23: reports would have been lower if not for exacerbation of shoulder blade pain. 27% LTG Duration 10/01/23 One Impairment pain left UE as high as 8/10 Impairment shoulder, scapula, elbow, wrist pain Short Term Goal (STG) Decrease pain to no greater than 4/10 with all usual activities 08/20/23; now none in wrist or elbow but moderate to severe in left scapula after gardening STG Duration 08/18/23 Snf Goal (LTG) Decrease pain to no greater than 2/10 with all usual activities LTG Duration 10/01/23 Assessment Summary Assessment Patient instructed/reviewed theraband exercises with emphasis alignment, posterior chain strengthening, postural correction. Also shown use of cane, consider theracane for self massage UT and LS. Decreased muscle tension and pain left UT and LS after treatment. Physical Therapy Plan Frequency and Duration Frequency of Treatment 2x/Week Duration of treatment (weeks) 12 Plan of Care Start Date 07/03/23 Plan of Care End Date 10/01/23 Therapeutic Interventions Therapeutic Interventions Home Exercise Program,Manual Therapy,Patient/Caregiver Education,Self-Care/Home Management,Soft Tissue Mobilization,Taping, Therapeutic Activities, Therapeutic Exercises Modalities Cold Pack/Ice Massage,Electric Stimulation,Hot Packs, Infrared Therapy,Iontophoresis ,Ultrasound Other Therapeutic Interventions edema management Next Visit Focus/Plan Next Note Type Treatment Note Next Visit Plan Continue PT for scapular mobilization, soft tissue mobilization and posterior chain strengthening.
--- NOTE | 2023-08-27 10:27 | PT.OTN ---
Current Diagnoses Effusion, left wrist (08/27/23) Pain in left shoulder (08/27/23) Pain in left wrist (08/27/23) Physical Therapy Treatment Note PT-OP-A Visit Information Start: 07/02/23 15:37 Freq: Status: Active Protocol: Document 08/27/23 09:47 SP (Rec: 08/27/23 10:34 SP [id number]) Out-Patient Physical Therapy Visit Information Visit Information Visit Type Treatment Note Visit Start Time 09:47 Visit Stop Time 10:27 Visit Number 12 Number of SENIOR CONTROL SYSTEMS ENGINEER Visits 1 Evaluation Information Evaluation Date 07/03/23 PT-OP-B Current Condition Start: 07/02/23 15:37 Freq: Status: Active Protocol: Document 07/09/23 10:32 SAK (Rec: 07/09/23 11:43 SAK [id number]) Current Condition History of Current Condition Onset Date 3 weeks ago Current Complaints left shoulder, neck, elbow, and wrist pain History of Current Condition was reaching up and back with left hand for seatbelt, immediate onset left shoulder pain and left wrist pain . Went into pool for exercise right after and it flared up. Pain has been moderate to evere with swelling into her left elbow and forearm. ordered PT for shoulder and x- ray for wrist last week. Hs been using ice, immobilizer left hand. Tingling into left elbow and lateral 2 fingers. Pain interrupting her sleep. Very swollen elbow and wrist/ hand. Prior Treatments and Tests wrist x-ray: negative, shoulder x-ray negative has CT scheduled for wrist Treatment Goals Patient/Caregiver Goals decrease pain and swelling and be able to resume normal use of her left UE PT-OP-C Subjective Start: 07/02/23 15:37 Freq: Status: Active Protocol: Document 08/27/23 09:47 SP (Rec: 08/27/23 10:34 SP [id number]) OP-PT Subjective Patient Comments Patient Comments Pt reports her neck is pretty stiff especially performing L> R SB. THe shoulder exercises are helping. She c/o of back pain and limited yard work wanting to get done limited with bending. Limited CS L SB and posture demonstrates more R tunk SB using SPC in LUE. States carries items in RUE and back pain with R decreased stance time than L. PT-OP-F Manual Assessment Start: 07/02/23 15:37 Freq: Status: Active Protocol: Document 07/03/23 13:48 SAK (Rec: 07/07/23 13:55 [facility] [id number]) Manual Assessments Soft Tissue Assessment Soft Tissue Mobility Assessment intact PT-OP-H Neuro Start: 07/02/23 15:37 Freq: Status: Active Protocol: Document 07/03/23 13:48 SAK (Rec: 07/07/23 13:55 [facility] [id number]) Sensation Evaluation Gross Sensation Gross Sensation Left UE Impaired Sensation Description Paresthesia,Numbness,Tingling PT-OP-J Posture/Palpation/Skin Start: 07/02/23 15:37 Freq: Status: Active Protocol: Document 07/03/23 13:48 SAK (Rec: 07/07/23 13:55 [facility] [id number]) Posture Evaluation Position Sitting Head/C-Spine Posture Forward Head Shoulder Posture (L) Rounded,(R) Rounded Scapula Posture (L) Protracted,(R) Protracted Arm Posture (L) Internally Rotated,(R) Internally Rotated PT-OP-K Range of Motion Start: 07/02/23 15:37 Freq: Status: Active Protocol: Document 07/03/23 13:48 SAK (Rec: 07/07/23 13:55 [facility] [id number]) Cervical Spine Range of Motion Cervical Spine Active Comments WNL Shoulder Goniometric Range of Motion Shoulder Left Shoulder ROM WFL No Flexion 155 Extension 25 Abduction 145 Right Active Shoulder ROM WFL Yes Shoulder ROM Limitations Shoulder ROM Limitations Pain,Swelling Elbow/Forearm Range of Motion Elbow/Forearm Left Active Elbow/Forearm ROM WFL No Elbow Flexion (degrees) 105 Elbow Extension (degrees) 20 Right Active Elbow/Forearm ROM WFL Yes Wrist Goniometric Range of Motion Wrist Left Flexion Active (degrees) 15 Extension Active (degrees) 10 Right Wrist ROM WFL Yes ROM Limitations Wrist Limitations of Range of Motion Pain,Swelling PT-OP-L Special Tests Start: 07/02/23 15:37 Freq: Status: Active Protocol: Document 07/03/23 13:48 SAK (Rec: 07/07/23 13:55 [facility] [id number]) Special Tests Shoulder Special Tests Elevation Impingement Test Results - Drop Arm Rotator Cuff Test Results - Elbow Special Tests Scar Biceps Test Results + PT-OP-M Strength Start: 07/02/23 15:37 Freq: Status: Active Protocol: Document 07/03/23 13:48 SAK (Rec: 07/07/23 13:55 [facility] [id number]) Shoulder Strength Shoulder Manual Muscle Testing Left Comments deferred due to pain Right Comments WNL Elbow/Forearm Strength Elbow and Forearm Manual Muscle Testing Left Flexion (C6) 4- Good- Extension (C7) 4- Good- Comments limited by pain Right Flexion (C6) 5 Normal Extension (C7) 5 Normal PT-OP-Q Treatments Start: 07/02/23 15:37 Freq: Status: Active Protocol: Document 08/27/23 09:47 SP (Rec: 08/27/23 10:34 SP [id number]) Therapeutic Exercises Sidelying Exercises open book Sidelying Exercise Name R>L today tightness Side bilateral Resistance AROM Reps/Minutes 5 reps Comments cues for scapular retraction/ depression, pnfree range Sitting Exercises c/s rot, sb Side bilateral Reps/Minutes 5x Comments increased ROM L post manual R- will do more self L latera for better R rot Other Exercises self STMs Other Exercise Name MWM theracane end tx: head nods/turns, scap mob Resistance R>L CS more at occiput, distal LS Reps/Minutes 5 min total Comments good feedback response for carryover home Manual Therapy Treatment Soft Tissue Mobilization periscap Body Location R rhomboids, suprasp, Lat Mobilization Type Myofascial Release,Strumming, Sustained Pressure Comments L SL c/s, UT Body Location B R>L UT, LS Mobilization Type Myofascial Release,Strumming, Sustained Pressure,Other Comments supine & L SL STMs and MWM head nods turns pre self use theracane. Joint Mobilizations scapula Joint R Direction retraction/protraction, sup/ inf glide, UR with ABD AAROM Grade II Body Position R side Comments tactile cues inferior glide into ABD, HABD PT-OP-R Modalities Start: 07/02/23 15:37 Freq: Status: Active Protocol: Document 08/22/23 11:20 SAK (Rec: 08/22/23 12:06 [facility] [id number]) Hot Pack/Cold Pack Treatment Hot Pack Location left shoulder, LS, UT PT-OP-T Assessment and Plan Start: 07/02/23 15:37 Freq: Status: Active Protocol: Document 08/27/23 09:47 SP (Rec: 08/27/23 10:34 SP [id number]) Physical Therapy Assessment Goals Three Impairment edema left UE Short Term Goal (STG) decrease edema by at least 50% to allow improved use of left UE 07/18/23: MET GOAL: reduction in L elbow edema at least 60 %. STG Duration 08/18/23 GOAL MET 07/18/23 Nursing Home Goal (LTG) Decrease edema by at least 75% to allow patient to return to prior level of function with left UE 07/18/23: progressing reduction R anteromedial elbow 60% since last tx. 08/20/23 LTG Duration 10/01/23 PRogresing 07/18/23 Two Impairment quickdash UE disability index score 84% Impairment poor activity tolerance Short Term Goal (STG) decrease Quickdash score to no greater than 50% as measure of improved ability to use left UE 08/20/23:goal met, score 27% STG Duration 08/18/23 Nursing Home Goal (LTG) decrease Quickdash score to no greater than 20% as measure of improved ability to use left UE for all usual activities including ability to sleep without being woken due to pain 08/20/23: reports would have been lower if not for exacerbation of shoulder blade pain. 27% LTG Duration 10/01/23 One Impairment pain left UE as high as 8/10 Impairment shoulder, scapula, elbow, wrist pain Short Term Goal (STG) Decrease pain to no greater than 4/10 with all usual activities 08/20/23; now none in wrist or elbow but moderate to severe in left scapula after gardening STG Duration 08/18/23 Nursing Home Goal (LTG) Decrease pain to no greater than 2/10 with all usual activities LTG Duration 10/01/23 Assessment Summary Assessment Pt improved ROM L SB post manual focused R UT, LS. Time spent ed instruction positioning theracane distal angled up ceiling and opp end post neck/occiput with good feedback response better understanding for carryover home use of hers. Good scapular ROM post manual. More evenly stance standing end tx . REcommended maybe in future having PT for her back. Physical Therapy Plan Frequency and Duration Frequency of Treatment 2x/Week Duration of treatment (weeks) 12 Plan of Care Start Date 07/03/23 Plan of Care End Date 10/01/23 Therapeutic Interventions Therapeutic Interventions Home Exercise Program,Manual Therapy,Patient/Caregiver Education,Self-Care/Home Management,Soft Tissue Mobilization,Taping, Therapeutic Activities, Therapeutic Exercises Modalities Cold Pack/Ice Massage,Electric Stimulation,Hot Packs, Infrared Therapy,Iontophoresis ,Ultrasound Other Therapeutic Interventions edema management Next Visit Focus/Plan Next Note Type Treatment Note Next Visit Plan Recheck open book. Next tx add side shld abd, seated OH eccentric FF and scaption. POC: Continue PT for scapular mobilization, soft tissue mobilization and posterior chain strengthening.
--- NOTE | 2023-08-29 17:36 | PT.OTN ---
Current Diagnoses Effusion, left wrist (08/29/23) Pain in left shoulder (08/29/23) Pain in left wrist (08/29/23) Physical Therapy Treatment Note PT-OP-A Visit Information Start: 07/02/23 15:37 Freq: Status: Active Protocol: Document 08/29/23 13:03 SAK (Rec: 08/29/23 13:46 [facility] [id number]) Out-Patient Physical Therapy Visit Information Visit Information Visit Type Treatment Note Visit Start Time 13:00 Visit Stop Time 13:50 Visit Number 13 Number of SUPPLY CHAIN TECH Visits 0 Evaluation Information Evaluation Date 07/03/23 PT-OP-B Current Condition Start: 07/02/23 15:37 Freq: Status: Active Protocol: Document 08/29/23 13:03 SAK (Rec: 08/29/23 13:46 [facility] [id number]) Current Condition History of Current Condition Onset Date 3 weeks ago Current Complaints left shoulder, neck, elbow, and wrist pain History of Current Condition was reaching up and back with left hand for seatbelt, immediate onset left shoulder pain and left wrist pain . Went into pool for exercise right after and it flared up. Pain has been moderate to evere with swelling into her left elbow and forearm. ordered PT for shoulder and x- ray for wrist last week. Hs been using ice, immobilizer left hand. Tingling into left elbow and lateral 2 fingers. Pain interrupting her sleep. Very swollen elbow and wrist/ hand. Prior Treatments and Tests wrist x-ray: negative, shoulder x-ray negative has CT scheduled for wrist PT-OP-C Subjective Start: 07/02/23 15:37 Freq: Status: Active Protocol: Document 08/29/23 13:03 SAK (Rec: 08/29/23 13:46 [facility] [id number]) OP-PT Subjective Patient Comments Patient Comments Neck pain better after manual work last session. HEr cane doesn't work as well as Theracane. Doing exercises. Probably 50% better. Will be traveling so would like to be discharged today, plans to get new prescription for PT when she returns. Patient Reported Progress Improving PT-OP-F Manual Assessment Start: 07/02/23 15:37 Freq: Status: Active Protocol: Document 07/03/23 13:48 SAK (Rec: 07/07/23 13:55 [facility] [id number]) Manual Assessments Soft Tissue Assessment Soft Tissue Mobility Assessment intact PT-OP-H Neuro Start: 07/02/23 15:37 Freq: Status: Active Protocol: Document 07/03/23 13:48 SAK (Rec: 07/07/23 13:55 [facility] [id number]) Sensation Evaluation Gross Sensation Gross Sensation Left UE Impaired Sensation Description Paresthesia,Numbness,Tingling PT-OP-J Posture/Palpation/Skin Start: 07/02/23 15:37 Freq: Status: Active Protocol: Document 07/03/23 13:48 SAK (Rec: 07/07/23 13:55 [facility] [id number]) Posture Evaluation Position Sitting Head/C-Spine Posture Forward Head Shoulder Posture (L) Rounded,(R) Rounded Scapula Posture (L) Protracted,(R) Protracted Arm Posture (L) Internally Rotated,(R) Internally Rotated PT-OP-K Range of Motion Start: 07/02/23 15:37 Freq: Status: Active Protocol: Document 07/03/23 13:48 [facility] (Rec: 07/07/23 13:55 [facility] [id number]) Cervical Spine Range of Motion Cervical Spine Active Comments WNL Shoulder Goniometric Range of Motion Shoulder Left Shoulder ROM WFL No Flexion 155 Extension 25 Abduction 145 Right Active Shoulder ROM WFL Yes Shoulder ROM Limitations Shoulder ROM Limitations Pain,Swelling Elbow/Forearm Range of Motion Elbow/Forearm Left Active Elbow/Forearm ROM WFL No Elbow Flexion (degrees) 105 Elbow Extension (degrees) 20 Right Active Elbow/Forearm ROM WFL Yes Wrist Goniometric Range of Motion Wrist Left Flexion Active (degrees) 15 Extension Active (degrees) 10 Right Wrist ROM WFL Yes ROM Limitations Wrist Limitations of Range of Motion Pain,Swelling PT-OP-L Special Tests Start: 07/02/23 15:37 Freq: Status: Active Protocol: Document 07/03/23 13:48 SAK (Rec: 07/07/23 13:55 [facility] [id number]) Special Tests Shoulder Special Tests Elevation Impingement Test Results - Drop Arm Rotator Cuff Test Results - Elbow Special Tests Scar Biceps Test Results + PT-OP-M Strength Start: 07/02/23 15:37 Freq: Status: Active Protocol: Document 07/03/23 13:48 SAK (Rec: 07/07/23 13:55 [facility] [id number]) Shoulder Strength Shoulder Manual Muscle Testing Left Comments deferred due to pain Right Comments WNL Elbow/Forearm Strength Elbow and Forearm Manual Muscle Testing Left Flexion (C6) 4- Good- Extension (C7) 4- Good- Comments limited by pain Right Flexion (C6) 5 Normal Extension (C7) 5 Normal PT-OP-Q Treatments Start: 07/02/23 15:37 Freq: Status: Active Protocol: Document 08/29/23 13:03 [facility] (Rec: 08/29/23 13:46 SAK [id number]) Therapeutic Exercises Supine Exercises pec stretch Supine Exercise Name major and minor Side bilateral Equipment Used no pillow needed under head Reps/Minutes 30 Comments good gentle pec stretch Sidelying Exercises shoulder abd Reps/Minutes 5x Comments manual facil for upward scapular rotation open book Sidelying Exercise Name R>L today tightness Side bilateral Resistance AROM Reps/Minutes 5 reps Comments cues for scapular retraction/ depression, pnfree range Sitting Exercises c/s rot, sb Side bilateral Reps/Minutes 5x Comments increased ROM L post manual R- will do more self L latera for better R rot Other Exercises self STMs Other Exercise Name verbal review, encouraged patient get Theracane Manual Therapy Treatment Soft Tissue Mobilization periscap Body Location R rhomboids, suprasp, Lat Mobilization Type Myofascial Release,Strumming, Sustained Pressure Comments L SL c/s, UT Body Location B R>L UT, LS Mobilization Type Myofascial Release,Strumming, Sustained Pressure,Other Comments supine & L SL STMs and MWM head nods turns pre self use theracane. Joint Mobilizations scapula Joint R Direction retraction/protraction, sup/ inf glide, UR with ABD AAROM Grade II Body Position R side Comments tactile cues inferior glide into ABD, HABD PT-OP-R Modalities Start: 07/02/23 15:37 Freq: Status: Active Protocol: Document 08/29/23 13:03 [facility] (Rec: 08/29/23 13:52 [facility] [id number]) Hot Pack/Cold Pack Treatment Hot Pack Location left shoulder, LS, UT Patient Tolerance Good PT-OP-T Assessment and Plan Start: 07/02/23 15:37 Freq: Status: Active Protocol: Document 08/29/23 13:03 [facility] (Rec: 08/29/23 13:46 [facility] [id number]) Physical Therapy Assessment Goals Three Impairment edema left UE Short Term Goal (STG) decrease edema by at least 50% to allow improved use of left UE 07/18/23: MET GOAL: reduction in L elbow edema at least 60 %. STG Duration 08/18/23 GOAL MET 07/18/23 Varitype Operator Goal (LTG) Decrease edema by at least 75% to allow patient to return to prior level of function with left UE 07/18/23: progressing reduction R anteromedial elbow 60% since last tx. 08/20/23 LTG Duration goal met Two Impairment quickdash UE disability index score 84% Impairment poor activity tolerance Short Term Goal (STG) decrease Quickdash score to no greater than 50% as measure of improved ability to use left UE 08/20/23:goal met, score 27% STG Duration goal met Varitype Operator Goal (LTG) decrease Quickdash score to no greater than 20% as measure of improved ability to use left UE for all usual activities including ability to sleep without being woken due to pain 08/20/23: reports would have been lower if not for exacerbation of shoulder blade pain. 27% LTG Duration goal progress One Impairment pain left UE as high as 8/10 Impairment shoulder, scapula, elbow, wrist pain Short Term Goal (STG) Decrease pain to no greater than 4/10 with all usual activities 08/20/23; now none in wrist or elbow but moderate to severe in left scapula after gardening STG Duration goal met elbow, writ Usp Goal (LTG) Decrease pain to no greater than 2/10 with all usual activities LTG Duration goal progress Assessment Summary Assessment Patient pain in scapula and neck decreased but persists. Feel exacerbated by use of cane as well as gardening. REviewed safety for gardening activities. Pain and tightness decreased with PT session. At this time patient is going to be out of town traveling and would like to be discharged from PT. She plans to request a new prescription for PT when she returns from travelling. Physical Therapy Plan Discharge Physical Therapy Discharge Reasons Patient Request Discharge Comments Patient going out of town.
== END 2023-09-25 12:27 | disposition home or self-care (01) ==
LOC: PHYS 13:00
PROVIDERS: Family Provider Student in an Organized Health Care Education/Training Program; PCP Student in an Organized Health Care Education/Training Program; Referring Provider Student in an Organized Health Care Education/Training Program; Visit Provider Student in an Organized Health Care Education/Training Program
DX: M25.512 Pain in left shoulder (principal); M25.532 Pain in left wrist; M25.432 Effusion, left wrist
CPT/HCPCS: 97014; 97018; 97110; 97140; 97162; 97535; G0283

== ENCOUNTER → 2023-09-26 13:17 | Outpatient (CLI) | payer MEDICARE, SELFPAY ==
[2022-04-12 01:05] VITALS: BMI 29.2
--- NOTE | 2023-09-26 13:20 | DI.RAD.S_ITS ---
PROCEDURE: XR CERVICAL SPINE 2V OR 3V INDICATIONS: NECK PAIN TECHNIQUE: 3 view(s) of the cervical spine were acquired. COMPARISON: None. FINDINGS: Bones: No fractures or dislocations to the T1 level. The lateral masses of C1 appear intact on the odontoid view. No suspicious bony lesions. There is straightening of the normal cervical lordosis. There is trace retrolisthesis of C5 on C6. Multilevel disc height loss, endplate sclerosis and osteophytosis, worse at C5-C6. Soft tissues: No prevertebral soft tissue swelling. IMPRESSION: No displaced fracture or traumatic subluxation. Multilevel degenerative changes, worse at C5-C6. Trace retrolisthesis C5 on C6. Approved by: Belinda Ramirez M.D.,Ph.D. on 09/26/2023 at 22:08
== END ==
PROVIDERS: Family Provider Student in an Organized Health Care Education/Training Program; PCP Student in an Organized Health Care Education/Training Program
DX: M47.812 Spondylosis without myelopathy or radiculopathy, cervical region (principal); M54.2 Cervicalgia
CPT/HCPCS: 72040

== ENCOUNTER → 2023-10-18 15:51 | Outpatient (CLI) | payer MEDICARE, SELFPAY ==
[2022-04-12 01:05] VITALS: BMI 29.2
--- NOTE | 2023-10-18 | DI.MRI.S_ITS ---
PROCEDURE: MR CERVICAL SPINE WO CON INDICATIONS: CHRONIC NECK PAIN TECHNIQUE: Noncontrast sagittal T1 spin echo and T2 fast spin echo, sagittal STIR, foraminal oblique sagittal T2 fast spin echo, and axial gradient echo or T2 fast spin echo through the cervical spine. COMPARISON: None. FINDINGS: Image quality: Excellent Mild reversal of normal cervical spine lordosis. Mild anterolisthesis of C4 on C5. Mild retrolisthesis of C5 on C6, C6 on C7. Mild anterolisthesis of C7 on T1. Vertebral body height of the cervical spine is well maintained. Marrow signal cervical spine is normal for age. Multilevel posterior disc osteophyte complex. Core signal: within normal limits. Axial levels: C2-3: Mild bilateral facet arthropathy. No stenosis. C3-4: Mild bilateral facet arthropathy. No central canal stenosis. No right neural foraminal stenosis. Mild left neural foraminal stenosis. C4-5: Posterior disc osteophyte complex. No central canal stenosis. No neural foraminal stenosis. C5-6: Posterior disc osteophyte complex. Mild central canal stenosis. Uncovertebral and mild bilateral facet arthropathy. Moderate right neural foraminal stenosis. Moderate left from stenosis. C6-7: Posterior disc osteophyte complex. Mild bilateral facet arthropathy. No central canal stenosis. Mild right, mild left neural foraminal stenosis. C7-T1: Mild bilateral facet arthropathy. No stenosis. 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 Dictated by: Roselyn Alexis M.D. on 10/18/2023 at 18:02 Approved by: Roselyn Alexis M.D. on 10/18/2023 at 18:11
== END ==
LOC: MRI 15:51
PROVIDERS: Family Provider Student in an Organized Health Care Education/Training Program; PCP Student in an Organized Health Care Education/Training Program; Referring Provider Family Medicine; Visit Provider Family Medicine
DX: M47.812 Spondylosis without myelopathy or radiculopathy, cervical region (principal); M48.02 Spinal stenosis, cervical region; M54.2 Cervicalgia
CPT/HCPCS: 72141

== ENCOUNTER → 2023-10-31 11:09 | Outpatient (CLI) | payer MEDICARE, SELFPAY ==
[2022-04-12 01:05] VITALS: BMI 29.2
[2023-10-31 12:34] LABS: T4 Total Thyroxine 9.03 ug/dL (5.5-11.0)
[2023-10-31 12:47] LABS: Thyroid Stimulating Hormone 3.29 uIU/mL (0.47-4.68)
== END ==
PROVIDERS: Family Provider Student in an Organized Health Care Education/Training Program; PCP Student in an Organized Health Care Education/Training Program; Referring Provider Family Medicine; Visit Provider Family Medicine
DX: E89.0 Postprocedural hypothyroidism (principal)
CPT/HCPCS: 36415; 84436; 84443

== ENCOUNTER → 2023-12-04 18:04 | Outpatient (CLI) | payer MEDICARE, SELFPAY ==
[2022-04-12 01:05] VITALS: BMI 29.2
[2023-12-04 20:34] LABS: Influenza A - CEPHEID Flu A NEGATIVE (NEGATIVE); Influenza B - CEPHEID Flu B NEGATIVE (NEGATIVE); Respiratory Syncytial Virus Negative (Negative)
[2023-12-04 20:36] LABS: COVID-19 CEPHEID 4-PLEX PCR Negative (Negative)
== END ==
PROVIDERS: Family Provider Student in an Organized Health Care Education/Training Program; PCP Student in an Organized Health Care Education/Training Program; Referring Provider Student in an Organized Health Care Education/Training Program; Visit Provider Student in an Organized Health Care Education/Training Program
DX: R05.1 Acute cough (principal)
CPT/HCPCS: 0241U

== ENCOUNTER → 2023-12-04 18:44 | Outpatient (CLI) | payer MEDICARE, SELFPAY ==
[2022-04-12 01:05] VITALS: BMI 29.2
--- NOTE | 2023-12-04 18:45 | DI.RAD.S_ITS ---
PROCEDURE: XR CHEST 2V INDICATIONS: wheezing/prod cough 5 D, chills TECHNIQUE: 2 views of the chest were acquired. COMPARISON: [facility], , CHEST 1 VIEW, 06/28/2013, 2:21. FINDINGS: Surgical changes and devices: None. Lungs and pleura: Increased interstitial lung markings are noted bilaterally not significantly changed from prior study. No definite focal infiltrate. No pleural effusions or pneumothorax. Mediastinum: Mediastinal contours are normal. Heart size is normal. Bones and chest wall: No suspicious bony abnormalities. Soft tissues appear unremarkable. IMPRESSION: Suggestion of chronic interstitial lung disease. No focal infiltrate, pleural effusion or pneumothorax. Dictated by: Barney Roberts M.D. on 12/04/2023 at 19:18 Approved by: Barney Roberts M.D. on 12/04/2023 at 19:18
== END ==
PROVIDERS: Family Provider Student in an Organized Health Care Education/Training Program; PCP Family Medicine; Referring Provider Student in an Organized Health Care Education/Training Program; Visit Provider Student in an Organized Health Care Education/Training Program
DX: R05.1 Acute cough (principal); R68.83 Chills (without fever)
CPT/HCPCS: 0241U; 71046

== ENCOUNTER 2024-01-21 14:30 | Outpatient (RCR) | payer MEDICARE, SELFPAY ==
[2022-04-12 01:05] VITALS: BMI 29.2
--- NOTE | 2023-09-23 16:31 | PT.OIE ---
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) Fractures (10/08/07) Hayfever (1959) Heart failure, systolic History of UTI Lichen sclerosus et atrophicus (2011) Measles (1949) Microscopic hematuria Mitral stenosis Mixed incontinence Osteoarthritis (1996) Osteopenia Osteoporosis Postmenopausal atrophic vaginitis Valvular heart disease Past Surgical History (Last Reviewed 01/12/23 @ 18:20 by Leo Zavala DO) Anesthesia History of carpal tunnel repair (1979) History of carpal tunnel repair (03/23/04) History of cataract removal with insertion of prosthetic lens (01/02/12) History of cataract removal with insertion of prosthetic lens (12/19/11) History of hip replacement (05/08/10) History of hip surgery (05/16/08) History of hip surgery (10/08/07) History of incision and drainage (10/03/18) History of knee replacement (02/11/12) History of knee replacement (07/19/08) History of nasal surgery (10/03/11) History of orthopedic surgery (10/17/09) Periprosthetic fracture around other internal prosthetic joint, initial encounter Status post vaginal hysterectomy (1974) Visit Care Team Role Provider Type Nabila Giles PA-C Attending Provider Physician Office Services Specialist Family Provider Primary Care Provider Referring Provider Specialty: Medical Address: [place], [place], [facility] Email: [email or web address] [facility] Initial Evaluation PT-OP-A Visit Information Start: 09/22/23 08:29 Freq: Status: Active Protocol: Document 09/23/23 09:00 [facility] (Rec: 09/23/23 09:49 [facility] [id number]) Out-Patient Physical Therapy Visit Information Visit Information Visit Type Initial Evaluation Visit Start Time 09:00 Visit Stop Time 09:55 Visit Number 1 Evaluation Information Evaluation Date 09/23/23 PT-OP-B Current Condition Start: 09/22/23 08:29 Freq: Status: Active Protocol: Document 09/23/23 09:00 [facility] (Rec: 09/23/23 09:49 [facility] [id number]) Current Condition History of Current Condition Onset Date 5-6 yrs Current Complaints neck and back pain, left shoulder pain History of Current Condition History neck pain, back pain, and left shoulder pain. Went fishing last week using 2 handed tate; much worsened. sore shoulder, neck and back pain. cervical radiculopathy C8, spinal stenosis lumbar region with long history of back pain 5-6 years. Neck pain more intermittant. SEveral falls hitting neck including 2021. Scoliosis thoracolumbar spine. REcently treated in PT for left shoulder and bicep pain, thoracic and shoulder pain persists but biceps and elbow pain gone. Hasn't been able to do much of anything for the past week due to the pain in scapula and upper back, worse when sitting or standing. Prior Treatments and Tests MRI 10/19/22: Multilevel degenerative changes of the lumbar spine. CT neck 2021: Bones: Degenerative straightening of the usual cervical lordosis. Otherwise normal alignment. No listhesis. Vertebral body heights maintained. No fracture. Soft tissues: Prevertebral soft tissues are normal in thickness. No paravertebral hematomas. No apical pneumothoraces. IMPRESSION: No CT evidence of acute traumatic cervical spine injury. Treatment Goals Patient/Caregiver Goals Decrease pain and improve function Prior Functional Status Baseline Function- ADL's Independent Baseline Function- Mobility Independent Baseline Function- Gait indep using SPC in left UE Current Functional Impairments (Reported) Functional Limitations- ADL's painful Functional Limitations- Mobility/Gait painful and limited Functional Limitations- Work/School painful Functional Limitations- Recreation/ unable Hobbies PT-OP-C Subjective Start: 09/22/23 08:29 Freq: Status: Active Protocol: Document 09/23/23 09:00 [facility] (Rec: 09/23/23 16:14 [facility] [id number]) Patient Questionnaires Oswestry Low Back Index Oswestry Score 28 OP-PT Pain Assessment Pain Assessment Grid Paper Pain Assessment Grid Completed Yes Location thoracic spine, left scap Intensity 8 Description Aching,Pressure,Radiating, Sharp,Stabbing,Tender,With Movement Frequency Constant Pain Aggravating Factors Position,ADL's,Activity, Exercise,Standing,Lifting Pain Alleviating Factors Heat,Lying Supine Home Pain Medication Use Pain Medications Used Yes PT-OP-F Manual Assessment Start: 09/22/23 08:29 Freq: Status: Active Protocol: Document 09/23/23 09:00 [facility] (Rec: 09/23/23 16:14 [facility] [id number]) Manual Assessments Soft Tissue Assessment Soft Tissue Mobility Assessment meño UT trigger points left greater than right. PT-OP-G Mobility & Gait Start: 09/22/23 08:29 Freq: Status: Active Protocol: Document 09/23/23 09:00 [facility] (Rec: 09/23/23 16:14 [facility] [id number]) OP Gait Assessment Gait Gait Assistance Required: Independent Assistive Devices Assistive Device Straight Cane Orthotic/Prosthetic Devices or Brace: No Gait Deviations General Gait Pattern Antalgic,Decreased Stride Length,Decreased Feet Clearance,Flexed Trunk Comments Gait Comments feel use of cane left UE likely contributing to left scapular and thoracic spine pain PT-OP-H Neuro Start: 09/22/23 08:29 Freq: Status: Active Protocol: Document 09/23/23 09:00 [facility] (Rec: 09/23/23 16:14 [facility] [id number]) Sensation Evaluation Gross Sensation Gross Sensation WNL PT-OP-J Posture/Palpation/Skin Start: 09/22/23 08:29 Freq: Status: Active Protocol: Document 09/23/23 09:00 [facility] (Rec: 09/23/23 09:49 [facility] [id number]) Posture Evaluation Position Standing Head/C-Spine Posture Forward Head T-Spine Posture Flexible Scoliosis on (L) L-Spine Posture Flexible Scoliosis on (R) Shoulder Posture (L) Rounded,(R) Rounded Scapula Posture (L) Protracted,(R) Protracted Arm Posture (L) Internally Rotated,(R) Internally Rotated Palpation Assessment Location subscap Palpation Findings Soft Tissue Tightness, Tenderness,Trigger Point rhomboids Palpation Findings Soft Tissue Tightness,Trigger Point PT-OP-K Range of Motion Start: 09/22/23 08:29 Freq: Status: Active Protocol: Document 09/23/23 09:00 [facility] (Rec: 09/23/23 09:49 [facility] [id number]) Cervical Spine Range of Motion Cervical Spine Active Flexion 50 Extension 25 Rotation Left 45 Rotation Right 45 Lateral Flexion Left 25 Lateral Flexion Right 25 ROM Limitations Soft Tissue Tightness,Bony Restriction Lumbar Spine Range of Motion Lumbar Spine Active Flexion 60 Extension 5 Rotation Left 25 Rotation Right 25 Lateral Flexion Left 20 Lateral Flexion Right 25 Shoulder Goniometric Range of Motion Shoulder Left Flexion 165 Extension 20 Abduction 160 Horizontal Abduction 90 Horizontal Adduction 20 External Rotation at 45 degrees 55 Abduction Internal Rotation Behind Back (text) L4 Right Active Shoulder ROM WFL Yes Shoulder ROM Limitations Shoulder ROM Limitations Soft Tissue Tightness,Pain Hip Goniometric Range of Motion Hip meño Hip ROM WFL No Flexion w/Knee Flexed 100 Straight Leg Raise 85 Extension 0 Internal Rotation 20 External Rotation 60 Hip ROM Limitations Hip ROM Limitations Soft Tissue Tightness,Bony Restriction PT-OP-L Special Tests Start: 09/22/23 08:29 Freq: Status: Active Protocol: Document 09/23/23 09:00 [facility] (Rec: 09/23/23 16:14 [facility] [id number]) Special Tests Lumbar Spine Special Tests Compression Test Results neg Slump Test Results neg Shoulder Special Tests Belly Press Test Results + Elevation Impingement Test Results + Drop Arm Rotator Cuff Test Results - Hip Special Tests Straight Leg Raise Test Results negative PT-OP-M Strength Start: 09/22/23 08:29 Freq: Status: Active Protocol: Document 09/23/23 09:00 [facility] (Rec: 09/23/23 16:14 [facility] [id number]) Cervical Spine Strength Cervical Spine Manual Muscle Testing Flexion (C1-2) 4 Good Extension 4 Good Rotation Left 4 Good Rotation Right 4 Good Lateral Flexion Left (C3) 4 Good Lateral Flexion Right (C3) 4 Good Trunk Strength Trunk Manual Muscle Testing Flexion 3- Fair- Extension 3- Fair- Core Stabilization poor Scapula Strength Scapula Manual Muscle Testing Right Elevation (C4) 4+ Good+ Adduction 4+ Good+ Abduction 4+ Good+ Depression 4+ Good+ Left Elevation (C4) 4- Good- Adduction 4- Good- Abduction 4- Good- Depression 4- Good- Comments painful Shoulder Strength Shoulder Manual Muscle Testing Left Flexion 4- Good- Extension 4- Good- Abduction (C5) 4- Good- Adduction 4+ Good+ External Rotation 4- Good- Internal Rotation 4- Good- Right Flexion 5 Normal Extension 5 Normal Abduction (C5) 5 Normal Adduction 5 Normal External Rotation 4 Good Internal Rotation 4+ Good+ Hip Strength Hip Manual Muscle Testing meño Flexion (L2) 4 Good Extension (S1) 3- Fair- Abduction 3- Fair- External Rotation 3+ Fair+ Internal Rotation 3+ Fair+ PT-OP-Q Treatments Start: 09/22/23 08:29 Freq: Status: Active Protocol: Document 09/23/23 09:00 [facility] (Rec: 09/23/23 16:14 [facility] [id number]) Self-Care/Home Management Treatment Education Patient Education Body Mechanics,Home Exercise Program,Pain Management, Posture Other Education issued written HO PT-OP-R Modalities Start: 09/22/23 08:29 Freq: Status: Active Protocol: Document 09/23/23 09:00 [facility] (Rec: 09/23/23 16:14 [facility] [id number]) Hot Pack/Cold Pack Treatment Hot Pack Location thoracolumbar spine, L scap Patient Position Hooklying Comments 90/90 PT-OP-T Assessment and Plan Start: 09/22/23 08:29 Freq: Status: Active Protocol: Document 09/23/23 09:00 [facility] (Rec: 09/23/23 16:14 [facility] [id number]) Physical Therapy Assessment Rehab Potential Rehabilitation Potential Good Evaluation Complexity Number of Personal Factors/Comorbidities 3 or More Number of Body Systems Impaired 3 Clinical Presentation at Evaluation Evolving Impairments Impairments Activity Tolerance,Pain, Strength Goals Three Impairment trigger points Impairment upper trap and subscap Fdc Goal (LTG) minimize trigger points in upper trap and subscap muscles to improve patient function with all usual activities LTG Duration 12/24/23 Two Impairment weakness Impairment core, scapula, left shoulder weakness Short Term Goal (STG) Patient to be instructed in progressive, individualized HEP for purposes of strengthening for improved joint support and function STG Duration 11/10/23 Tomato Paste Maker Goal (LTG) Patient to be independent and compliant with HEP and demonstrate improvement in strength to at least 4+/5 for improve function of scapula, thoracic spine, left shoulder. LTG Duration 12/24/23 One Impairment pain as high as 8/10 Impairment left thoracic spine, scapula Short Term Goal (STG) decrease pain to no greater than 4/10 with all usual acativities STG Duration 11/10/23 Tomato Paste Maker Goal (LTG) decrease pain to no greater than 2/10 with all usual activities including reaching overhead, behind her back, gardening, and fly fishing. LTG Duration 12/24/23 Assessment Summary Assessment Patient presents to PT with function-limiting pain cervical spine, thoracic spine , lumbar spine, left scapula; worst pain in left scapular region. Patient has significant weakness in left RC and serratus anterior musculature, postural dysfunction due to scoliosis, LBP, and use of cane in left UE due to right hip weakness and pain. Her pain was highly exacerbated by fly fishing last week with patient reporting pain as high as 8/10 at times despite doing minimal activity over the past week. Patient has a long history of musculoskeletal injuries and surgeries. She is frustrated by her loss of function and the high level of pain. Contributing factors discussed, initial HEP issued to patient, and session ended with moist heat. POC was discussed and patient was in agreement. Physical Therapy Plan Frequency and Duration Frequency of Treatment 2x/Week Duration of treatment (weeks) 12 Plan of Care Start Date 09/23/23 Plan of Care End Date 12/24/23 Therapeutic Interventions Therapeutic Interventions Home Exercise Program,Joint Mobilizations,Manual Therapy, Patient/Caregiver Education, Self-Care/Home Management, Taping,Therapeutic Activities, Therapeutic Exercises Modalities Cold Pack/Ice Massage,Electric Stimulation,Hot Packs, Infrared Therapy,Iontophoresis ,Ultrasound Next Visit Focus/Plan Next Note Type Treatment Note Next Visit Plan Review HEP, gentle progression of strengthening thoracic spine, left scap and shoulder. Soft tissue techniques to decrease soft tissue tension and pain.
--- NOTE | 2023-09-23 16:31 | PT.OPPOC ---
Physical, Occupational & Speech Therapy At [facility] Current Diagnoses Spinal stenosis, lumbar region without neurogenic claudication (09/23/23) Radiculopathy, cervical region (09/23/23) Soft tissue disorder, unspecified (09/23/23) Abnormal posture (09/23/23) Weakness (09/23/23) Visit Care Team Role Provider Type Nabila Giles PA-C Attending Provider Physician Coal Trammer Family Provider Primary Care Provider Referring Provider Specialty: Medical Address: [place], [place], [employer] [facility] [employer] Email: [email or web address] Plan Of Care PT-OP-T Assessment and Plan Start: 09/22/23 08:29 Freq: Status: Active Protocol: Document 09/23/23 09:00 [facility] (Rec: 09/23/23 16:14 [facility] [id number]) Physical Therapy Assessment Rehab Potential Rehabilitation Potential Good Evaluation Complexity Number of Personal Factors/Comorbidities 3 or More Number of Body Systems Impaired 3 Clinical Presentation at Evaluation Evolving Impairments Impairments Activity Tolerance,Pain, Strength Goals Three Impairment trigger points Impairment upper trap and subscap Rehabilitation Director Goal (LTG) minimize trigger points in upper trap and subscap muscles to improve patient function with all usual activities LTG Duration 12/24/23 Two Impairment weakness Impairment core, scapula, left shoulder weakness Short Term Goal (STG) Patient to be instructed in progressive, individualized HEP for purposes of strengthening for improved joint support and function STG Duration 11/10/23 Rehabilitation Director Goal (LTG) Patient to be independent and compliant with HEP and demonstrate improvement in strength to at least 4+/5 for improve function of scapula, thoracic spine, left shoulder. LTG Duration 12/24/23 One Impairment pain as high as 8/10 Impairment left thoracic spine, scapula Short Term Goal (STG) decrease pain to no greater than 4/10 with all usual acativities STG Duration 11/10/23 Rehabilitation Director Goal (LTG) decrease pain to no greater than 2/10 with all usual activities including reaching overhead, behind her back, gardening, and fly fishing. LTG Duration 12/24/23 Assessment Summary Assessment Patient presents to PT with function-limiting pain cervical spine, thoracic spine , lumbar spine, left scapula; worst pain in left scapular region. Patient has significant weakness in left RC and serratus anterior musculature, postural dysfunction due to scoliosis, LBP, and use of cane in left UE due to right hip weakness and pain. Her pain was highly exacerbated by fly fishing last week with patient reporting pain as high as 8/10 at times despite doing minimal activity over the past week. Patient has a long history of musculoskeletal injuries and surgeries. She is frustrated by her loss of function and the high level of pain. Contributing factors discussed, initial HEP issued to patient, and session ended with moist heat. POC was discussed and patient was in agreement. Physical Therapy Plan Frequency and Duration Frequency of Treatment 2x/Week Duration of treatment (weeks) 12 Plan of Care Start Date 09/23/23 Plan of Care End Date 12/24/23 Therapeutic Interventions Therapeutic Interventions Home Exercise Program,Joint Mobilizations,Manual Therapy, Patient/Caregiver Education, Self-Care/Home Management, Taping,Therapeutic Activities, Therapeutic Exercises Modalities Cold Pack/Ice Massage,Electric Stimulation,Hot Packs, Infrared Therapy,Iontophoresis ,Ultrasound Next Visit Focus/Plan Next Note Type Treatment Note Next Visit Plan Review HEP, gentle progression of strengthening thoracic spine, left scap and shoulder. Soft tissue techniques to decrease soft tissue tension and pain. Plan of Care Dates Plan of Care Start Date 09/23/23 Plan of Care End Date 12/24/23 Electronically Signed by: Josephine Riggs, PT 09/23/23 [id number] If you are in agreement with this Plan of Care, please return a signed and dated copy. I have reviewed this Plan of Care and certify that the skilled therapy services above are required to meet the patient?s needs. Physician Signature Date Printed Name and Credentials Clinical Instructor Signature Printed Name and Credentials
--- NOTE | 2023-10-09 14:50 | PT.OTN ---
Current Diagnoses Spinal stenosis, lumbar region without neurogenic claudication (10/09/23) Radiculopathy, cervical region (10/09/23) Soft tissue disorder, unspecified (10/09/23) Abnormal posture (10/09/23) Weakness (10/09/23) Physical Therapy Treatment Note PT-OP-A Visit Information Start: 09/22/23 08:29 Freq: Status: Active Protocol: Document 10/09/23 08:16 SAK (Rec: 10/09/23 09:44 SAK [id number]) Out-Patient Physical Therapy Visit Information Visit Information Visit Type Treatment Note Visit Start Time 08:16 Visit Stop Time 09:10 Visit Number 2 Evaluation Information Evaluation Date 09/23/23 PT-OP-B Current Condition Start: 09/22/23 08:29 Freq: Status: Active Protocol: Document 10/09/23 08:16 SAK (Rec: 10/09/23 09:44 SAK [id number]) Current Condition History of Current Condition Onset Date 5-6 yrs Current Complaints neck and back pain, left shoulder pain History of Current Condition History neck pain, back pain, and left shoulder pain. Went fishing last week using 2 handed tate; much worsened. sore shoulder, neck and back pain. cervical radiculopathy C8, spinal stenosis lumbar region with long history of back pain 5-6 years. Neck pain more intermittant. SEveral falls hitting neck including 2021. Scoliosis thoracolumbar spine. REcently treated in PT for left shoulder and bicep pain, thoracic and shoulder pain persists but biceps and elbow pain gone. Hasn't been able to do much of anything for the past week due to the pain in scapula and upper back, worse when sitting or standing. Prior Treatments and Tests MRI 10/19/22: Multilevel degenerative changes of the lumbar spine. CT neck 2021: Bones: Degenerative straightening of the usual cervical lordosis. Otherwise normal alignment. No listhesis. Vertebral body heights maintained. No fracture. Soft tissues: Prevertebral soft tissues are normal in thickness. No paravertebral hematomas. No apical pneumothoraces. IMPRESSION: No CT evidence of acute traumatic cervical spine injury. Treatment Goals Patient/Caregiver Goals Decrease pain and improve function PT-OP-C Subjective Start: 09/22/23 08:29 Freq: Status: Active Protocol: Document 10/09/23 08:16 SAK (Rec: 10/09/23 09:44 [facility] [id number]) OP-PT Subjective Patient Comments Patient Comments Reports shoulder blade and upper back continues to hurt, inc with walking and with standing, uses trekking poles to take walks and after about 1/2 mile pain increases significantly. When walks with one pole uses in left UE due to weakness right LE. Had to buy heating pad while on vacation due to intensity of pain. Manual treatment improves pain; felt better after first PT session. Can do breastroke and elementary backstroke, can't do sidestroke on left due to pain PT-OP-F Manual Assessment Start: 09/22/23 08:29 Freq: Status: Active Protocol: Document 09/23/23 09:00 [facility] (Rec: 09/23/23 16:14 [facility] [id number]) Manual Assessments Soft Tissue Assessment Soft Tissue Mobility Assessment meño [place] trigger points left greater than right. PT-OP-G Mobility & Gait Start: 09/22/23 08:29 Freq: Status: Active Protocol: Document 09/23/23 09:00 [facility] (Rec: 09/23/23 16:14 [facility] [id number]) OP Gait Assessment Gait Gait Assistance Required: Independent Assistive Devices Assistive Device Straight Cane Orthotic/Prosthetic Devices or Brace: No Gait Deviations General Gait Pattern Antalgic,Decreased Stride Length,Decreased Feet Clearance,Flexed Trunk Comments Gait Comments feel use of cane left UE likely contributing to left scapular and thoracic spine pain PT-OP-H Neuro Start: 09/22/23 08:29 Freq: Status: Active Protocol: Document 09/23/23 09:00 [facility] (Rec: 09/23/23 16:14 [facility] [id number]) Sensation Evaluation Gross Sensation Gross Sensation WNL PT-OP-J Posture/Palpation/Skin Start: 09/22/23 08:29 Freq: Status: Active Protocol: Document 09/23/23 09:00 [facility] (Rec: 09/23/23 09:49 [facility] [id number]) Posture Evaluation Position Standing Head/C-Spine Posture Forward Head T-Spine Posture Flexible Scoliosis on (L) L-Spine Posture Flexible Scoliosis on (R) Shoulder Posture (L) Rounded,(R) Rounded Scapula Posture (L) Protracted,(R) Protracted Arm Posture (L) Internally Rotated,(R) Internally Rotated Palpation Assessment Location subscap Palpation Findings Soft Tissue Tightness, Tenderness,Trigger Point rhomboids Palpation Findings Soft Tissue Tightness,Trigger Point PT-OP-K Range of Motion Start: 09/22/23 08:29 Freq: Status: Active Protocol: Document 09/23/23 09:00 [facility] (Rec: 09/23/23 09:49 [facility] [id number]) Cervical Spine Range of Motion Cervical Spine Active Flexion 50 Extension 25 Rotation Left 45 Rotation Right 45 Lateral Flexion Left 25 Lateral Flexion Right 25 ROM Limitations Soft Tissue Tightness,Bony Restriction Lumbar Spine Range of Motion Lumbar Spine Active Flexion 60 Extension 5 Rotation Left 25 Rotation Right 25 Lateral Flexion Left 20 Lateral Flexion Right 25 Shoulder Goniometric Range of Motion Shoulder Left Flexion 165 Extension 20 Abduction 160 Horizontal Abduction 90 Horizontal Adduction 20 External Rotation at 45 degrees 55 Abduction Internal Rotation Behind Back (text) L4 Right Active Shoulder ROM WFL Yes Shoulder ROM Limitations Shoulder ROM Limitations Soft Tissue Tightness,Pain Hip Goniometric Range of Motion Hip meño Hip ROM WFL No Flexion w/Knee Flexed 100 Straight Leg Raise 85 Extension 0 Internal Rotation 20 External Rotation 60 Hip ROM Limitations Hip ROM Limitations Soft Tissue Tightness,Bony Restriction PT-OP-L Special Tests Start: 09/22/23 08:29 Freq: Status: Active Protocol: Document 09/23/23 09:00 [facility] (Rec: 09/23/23 16:14 [facility] [id number]) Special Tests Lumbar Spine Special Tests Compression Test Results neg Slump Test Results neg Shoulder Special Tests Belly Press Test Results + Elevation Impingement Test Results + Drop Arm Rotator Cuff Test Results - Hip Special Tests Straight Leg Raise Test Results negative PT-OP-M Strength Start: 09/22/23 08:29 Freq: Status: Active Protocol: Document 09/23/23 09:00 [facility] (Rec: 09/23/23 16:14 [facility] [id number]) Cervical Spine Strength Cervical Spine Manual Muscle Testing Flexion (C1-2) 4 Good Extension 4 Good Rotation Left 4 Good Rotation Right 4 Good Lateral Flexion Left (C3) 4 Good Lateral Flexion Right (C3) 4 Good Trunk Strength Trunk Manual Muscle Testing Flexion 3- Fair- Extension 3- Fair- Core Stabilization poor Scapula Strength Scapula Manual Muscle Testing Right Elevation (C4) 4+ Good+ Adduction 4+ Good+ Abduction 4+ Good+ Depression 4+ Good+ Left Elevation (C4) 4- Good- Adduction 4- Good- Abduction 4- Good- Depression 4- Good- Comments painful Shoulder Strength Shoulder Manual Muscle Testing Left Flexion 4- Good- Extension 4- Good- Abduction (C5) 4- Good- Adduction 4+ Good+ External Rotation 4- Good- Internal Rotation 4- Good- Right Flexion 5 Normal Extension 5 Normal Abduction (C5) 5 Normal Adduction 5 Normal External Rotation 4 Good Internal Rotation 4+ Good+ Hip Strength Hip Manual Muscle Testing meño Flexion (L2) 4 Good Extension (S1) 3- Fair- Abduction 3- Fair- External Rotation 3+ Fair+ Internal Rotation 3+ Fair+ PT-OP-Q Treatments Start: 09/22/23 08:29 Freq: Status: Active Protocol: Document 10/09/23 08:16 [facility] (Rec: 10/09/23 09:44 [facility] [id number]) Therapeutic Exercises Sitting Exercises pulleys Sitting Exercise Name flexion and scaptioh Equipment Used pulleys Reps/Minutes 10x Standing Exercises sh shrugs and rolls Reps/Minutes 10x theraband Standing Exercise Name row, shld ext, shld ER Equipment Used L2 TB Reps/Minutes 10x gait correctiobn Equipment Used mirror Comments trekking pole left UE, cues for upright posture, scapular activation, dec l Manual Therapy Treatment Soft Tissue Mobilization 1 Body Location left periscap, UT, LS Intensity/Depth mod Body Position side Self-Care/Home Management Treatment Education Patient Education Body Mechanics,Home Exercise Program,Pain Management, Posture Other Education gait mechanics. updated HO issued for HEP PT-OP-R Modalities Start: 09/22/23 08:29 Freq: Status: Active Protocol: Document 09/23/23 09:00 [facility] (Rec: 09/23/23 16:14 [facility] [id number]) Hot Pack/Cold Pack Treatment Hot Pack Location thoracolumbar spine, L scap Patient Position Hooklying Comments 90/90 PT-OP-T Assessment and Plan Start: 09/22/23 08:29 Freq: Status: Active Protocol: Document 10/09/23 08:16 [facility] (Rec: 10/09/23 09:44 [facility] [id number]) Physical Therapy Assessment Impairments Impairments Activity Tolerance,Pain, Strength Goals Three Impairment trigger points Impairment upper trap and subscap Skill Training Program Coordinator Goal (LTG) minimize trigger points in upper trap and subscap muscles to improve patient function with all usual activities LTG Duration 12/24/23 Two Impairment weakness Impairment core, scapula, left shoulder weakness Short Term Goal (STG) Patient to be instructed in progressive, individualized HEP for purposes of strengthening for improved joint support and function STG Duration 11/10/23 Skill Training Program Coordinator Goal (LTG) Patient to be independent and compliant with HEP and demonstrate improvement in strength to at least 4+/5 for improve function of scapula, thoracic spine, left shoulder. LTG Duration 12/24/23 One Impairment pain as high as 8/10 Impairment left thoracic spine, scapula Short Term Goal (STG) decrease pain to no greater than 4/10 with all usual acativities STG Duration 11/10/23 Skill Training Program Coordinator Goal (LTG) decrease pain to no greater than 2/10 with all usual activities including reaching overhead, behind her back, gardening, and fly fishing. LTG Duration 12/24/23 Assessment Summary Assessment With education and practice patient able to walk with improved posture and scapular activation using trekking pole left; further education regarding benefit to left shoulder health with improved posture and muscle activation. Decreased pain with manual treatment and heat. Updated HEP including issued written HO. Physical Therapy Plan Frequency and Duration Frequency of Treatment 2x/Week Duration of treatment (weeks) 12 Plan of Care Start Date 09/23/23 Plan of Care End Date 12/24/23 Therapeutic Interventions Therapeutic Interventions Home Exercise Program,Joint Mobilizations,Manual Therapy, Patient/Caregiver Education, Self-Care/Home Management, Taping,Therapeutic Activities, Therapeutic Exercises Modalities Cold Pack/Ice Massage,Electric Stimulation,Hot Packs, Infrared Therapy,Iontophoresis ,Ultrasound Next Visit Focus/Plan Next Note Type Treatment Note Next Visit Plan Continue PT per POC, further TB ex including wall walk, supine PNF.
--- NOTE | 2023-10-23 17:55 | PT.OTN ---
Current Diagnoses Spinal stenosis, lumbar region without neurogenic claudication (10/23/23) Radiculopathy, cervical region (10/23/23) Soft tissue disorder, unspecified (10/23/23) Abnormal posture (10/23/23) Weakness (10/23/23) Physical Therapy Treatment Note PT-OP-A Visit Information Start: 09/22/23 08:29 Freq: Status: Active Protocol: Document 10/23/23 09:11 SAK (Rec: 10/23/23 09:49 SAK [id number]) Out-Patient Physical Therapy Visit Information Visit Information Visit Type Treatment Note Visit Start Time 09:05 Visit Stop Time 09:45 Visit Number 3 Evaluation Information Evaluation Date 09/23/23 PT-OP-B Current Condition Start: 09/22/23 08:29 Freq: Status: Active Protocol: Document 10/23/23 09:11 SAK (Rec: 10/23/23 09:49 SAK [id number]) Current Condition History of Current Condition Onset Date 5-6 yrs Current Complaints neck and back pain, left shoulder pain History of Current Condition History neck pain, back pain, and left shoulder pain. Went fishing last week using 2 handed tate; much worsened. sore shoulder, neck and back pain. cervical radiculopathy C8, spinal stenosis lumbar region with long history of back pain 5-6 years. Neck pain more intermittant. SEveral falls hitting neck including 2021. Scoliosis thoracolumbar spine. REcently treated in PT for left shoulder and bicep pain, thoracic and shoulder pain persists but biceps and elbow pain gone. Hasn't been able to do much of anything for the past week due to the pain in scapula and upper back, worse when sitting or standing. Prior Treatments and Tests MRI 10/19/22: Multilevel degenerative changes of the lumbar spine. CT neck 2021: Bones: Degenerative straightening of the usual cervical lordosis. Otherwise normal alignment. No listhesis. Vertebral body heights maintained. No fracture. Soft tissues: Prevertebral soft tissues are normal in thickness. No paravertebral hematomas. No apical pneumothoraces. IMPRESSION: No CT evidence of acute traumatic cervical spine injury. Treatment Goals Patient/Caregiver Goals Decrease pain and improve function PT-OP-C Subjective Start: 09/22/23 08:29 Freq: Status: Active Protocol: Document 10/23/23 09:11 SAK (Rec: 10/23/23 09:49 [facility] [id number]) OP-PT Subjective Patient Comments Patient Comments Much better for a couple days after last PT session, manual work, also continues to work on dec use of cane. Pain has inc again but not as bad. PT-OP-F Manual Assessment Start: 09/22/23 08:29 Freq: Status: Active Protocol: Document 09/23/23 09:00 [facility] (Rec: 09/23/23 16:14 [facility] [id number]) Manual Assessments Soft Tissue Assessment Soft Tissue Mobility Assessment meño [place] trigger points left greater than right. PT-OP-G Mobility & Gait Start: 09/22/23 08:29 Freq: Status: Active Protocol: Document 09/23/23 09:00 [facility] (Rec: 09/23/23 16:14 [facility] [id number]) OP Gait Assessment Gait Gait Assistance Required: Independent Assistive Devices Assistive Device Straight Cane Orthotic/Prosthetic Devices or Brace: No Gait Deviations General Gait Pattern Antalgic,Decreased Stride Length,Decreased Feet Clearance,Flexed Trunk Comments Gait Comments feel use of cane left UE likely contributing to left scapular and thoracic spine pain PT-OP-H Neuro Start: 09/22/23 08:29 Freq: Status: Active Protocol: Document 09/23/23 09:00 [facility] (Rec: 09/23/23 16:14 [facility] [id number]) Sensation Evaluation Gross Sensation Gross Sensation WNL PT-OP-J Posture/Palpation/Skin Start: 09/22/23 08:29 Freq: Status: Active Protocol: Document 09/23/23 09:00 [facility] (Rec: 09/23/23 09:49 [facility] [id number]) Posture Evaluation Position Standing Head/C-Spine Posture Forward Head T-Spine Posture Flexible Scoliosis on (L) L-Spine Posture Flexible Scoliosis on (R) Shoulder Posture (L) Rounded,(R) Rounded Scapula Posture (L) Protracted,(R) Protracted Arm Posture (L) Internally Rotated,(R) Internally Rotated Palpation Assessment Location subscap Palpation Findings Soft Tissue Tightness, Tenderness,Trigger Point rhomboids Palpation Findings Soft Tissue Tightness,Trigger Point PT-OP-K Range of Motion Start: 09/22/23 08:29 Freq: Status: Active Protocol: Document 09/23/23 09:00 [facility] (Rec: 09/23/23 09:49 [facility] [id number]) Cervical Spine Range of Motion Cervical Spine Active Flexion 50 Extension 25 Rotation Left 45 Rotation Right 45 Lateral Flexion Left 25 Lateral Flexion Right 25 ROM Limitations Soft Tissue Tightness,Bony Restriction Lumbar Spine Range of Motion Lumbar Spine Active Flexion 60 Extension 5 Rotation Left 25 Rotation Right 25 Lateral Flexion Left 20 Lateral Flexion Right 25 Shoulder Goniometric Range of Motion Shoulder Left Flexion 165 Extension 20 Abduction 160 Horizontal Abduction 90 Horizontal Adduction 20 External Rotation at 45 degrees 55 Abduction Internal Rotation Behind Back (text) L4 Right Active Shoulder ROM WFL Yes Shoulder ROM Limitations Shoulder ROM Limitations Soft Tissue Tightness,Pain Hip Goniometric Range of Motion Hip meño Hip ROM WFL No Flexion w/Knee Flexed 100 Straight Leg Raise 85 Extension 0 Internal Rotation 20 External Rotation 60 Hip ROM Limitations Hip ROM Limitations Soft Tissue Tightness,Bony Restriction PT-OP-L Special Tests Start: 09/22/23 08:29 Freq: Status: Active Protocol: Document 09/23/23 09:00 [facility] (Rec: 09/23/23 16:14 [facility] [id number]) Special Tests Lumbar Spine Special Tests Compression Test Results neg Slump Test Results neg Shoulder Special Tests Belly Press Test Results + Elevation Impingement Test Results + Drop Arm Rotator Cuff Test Results - Hip Special Tests Straight Leg Raise Test Results negative PT-OP-M Strength Start: 09/22/23 08:29 Freq: Status: Active Protocol: Document 09/23/23 09:00 [facility] (Rec: 09/23/23 16:14 [facility] [id number]) Cervical Spine Strength Cervical Spine Manual Muscle Testing Flexion (C1-2) 4 Good Extension 4 Good Rotation Left 4 Good Rotation Right 4 Good Lateral Flexion Left (C3) 4 Good Lateral Flexion Right (C3) 4 Good Trunk Strength Trunk Manual Muscle Testing Flexion 3- Fair- Extension 3- Fair- Core Stabilization poor Scapula Strength Scapula Manual Muscle Testing Right Elevation (C4) 4+ Good+ Adduction 4+ Good+ Abduction 4+ Good+ Depression 4+ Good+ Left Elevation (C4) 4- Good- Adduction 4- Good- Abduction 4- Good- Depression 4- Good- Comments painful Shoulder Strength Shoulder Manual Muscle Testing Left Flexion 4- Good- Extension 4- Good- Abduction (C5) 4- Good- Adduction 4+ Good+ External Rotation 4- Good- Internal Rotation 4- Good- Right Flexion 5 Normal Extension 5 Normal Abduction (C5) 5 Normal Adduction 5 Normal External Rotation 4 Good Internal Rotation 4+ Good+ Hip Strength Hip Manual Muscle Testing meño Flexion (L2) 4 Good Extension (S1) 3- Fair- Abduction 3- Fair- External Rotation 3+ Fair+ Internal Rotation 3+ Fair+ PT-OP-Q Treatments Start: 09/22/23 08:29 Freq: Status: Active Protocol: Document 10/23/23 09:11 [facility] (Rec: 10/23/23 09:49 [facility] [id number]) Therapeutic Exercises Sitting Exercises pulleys Sitting Exercise Name flexion and scaption Equipment Used pulleys Reps/Minutes 10x Standing Exercises overhead press Resistance 1# Reps/Minutes 5xx lateral raise Resistance 1# Reps/Minutes 10x upright row Resistance 2# Reps/Minutes 10x sh shrugs and rolls Reps/Minutes 10x theraband Standing Exercise Name row, shld ext, shld ER Equipment Used L2 TB Reps/Minutes 10x Manual Therapy Treatment Soft Tissue Mobilization 1 Body Location left periscap, UT, LS Intensity/Depth mod Body Position side Self-Care/Home Management Treatment Education Patient Education Body Mechanics,Home Exercise Program,Pain Management, Posture Other Education gait mechanics. updated HO issued for HEP PT-OP-R Modalities Start: 09/22/23 08:29 Freq: Status: Active Protocol: Document 09/23/23 09:00 [facility] (Rec: 09/23/23 16:14 [facility] [id number]) Hot Pack/Cold Pack Treatment Hot Pack Location thoracolumbar spine, L scap Patient Position Hooklying Comments 90/90 PT-OP-T Assessment and Plan Start: 09/22/23 08:29 Freq: Status: Active Protocol: Document 10/23/23 09:11 [facility] (Rec: 10/23/23 09:49 [facility] [id number]) Physical Therapy Assessment Impairments Impairments Activity Tolerance,Pain, Strength Goals Three Impairment trigger points Impairment upper trap and subscap Penitentiary Goal (LTG) minimize trigger points in upper trap and subscap muscles to improve patient function with all usual activities LTG Duration 12/24/23 Two Impairment weakness Impairment core, scapula, left shoulder weakness Short Term Goal (STG) Patient to be instructed in progressive, individualized HEP for purposes of strengthening for improved joint support and function STG Duration 11/10/23 Accounts Receivable Manager Goal (LTG) Patient to be independent and compliant with HEP and demonstrate improvement in strength to at least 4+/5 for improve function of scapula, thoracic spine, left shoulder. LTG Duration 12/24/23 One Impairment pain as high as 8/10 Impairment left thoracic spine, scapula Short Term Goal (STG) decrease pain to no greater than 4/10 with all usual acativities STG Duration 11/10/23 Penitentiary Goal (LTG) decrease pain to no greater than 2/10 with all usual activities including reaching overhead, behind her back, gardening, and fly fishing. LTG Duration 12/24/23 Assessment Summary Assessment Notable decreased pressure through left UE on trekking pole with inc use of right LE with gait decreasing stress left UE and scapular region. Reporting decrease in pain after last session lasting for a couple days, still better though some pain has returned. Physical Therapy Plan Frequency and Duration Frequency of Treatment 2x/Week Duration of treatment (weeks) 12 Plan of Care Start Date 09/23/23 Plan of Care End Date 12/24/23 Therapeutic Interventions Therapeutic Interventions Home Exercise Program,Joint Mobilizations,Manual Therapy, Patient/Caregiver Education, Self-Care/Home Management, Taping,Therapeutic Activities, Therapeutic Exercises Modalities Cold Pack/Ice Massage,Electric Stimulation,Hot Packs, Infrared Therapy,Iontophoresis ,Ultrasound Next Visit Focus/Plan Next Note Type Treatment Note Next Visit Plan Continue PT per POC, further TB ex including wall walk, supine PNF.
--- NOTE | 2023-10-25 09:43 | PT.OTN ---
Current Diagnoses Spinal stenosis, lumbar region without neurogenic claudication (10/25/23) Radiculopathy, cervical region (10/25/23) Soft tissue disorder, unspecified (10/25/23) Abnormal posture (10/25/23) Weakness (10/25/23) Physical Therapy Treatment Note PT-OP-A Visit Information Start: 09/22/23 08:29 Freq: Status: Active Protocol: Document 10/25/23 09:05 SP (Rec: 10/25/23 09:49 SP [id number]) Out-Patient Physical Therapy Visit Information Visit Information Visit Type Treatment Note Visit Start Time 09:05 Visit Stop Time 09:43 Visit Number 4 Number of DIRECTOR STATE PHARMACY Visits 1 Evaluation Information Evaluation Date 09/23/23 PT-OP-B Current Condition Start: 09/22/23 08:29 Freq: Status: Active Protocol: Document 10/23/23 09:11 SAK (Rec: 10/23/23 09:49 SAK [id number]) Current Condition History of Current Condition Onset Date 5-6 yrs Current Complaints neck and back pain, left shoulder pain History of Current Condition History neck pain, back pain, and left shoulder pain. Went fishing last week using 2 handed tate; much worsened. sore shoulder, neck and back pain. cervical radiculopathy C8, spinal stenosis lumbar region with long history of back pain 5-6 years. Neck pain more intermittant. SEveral falls hitting neck including 2021. Scoliosis thoracolumbar spine. REcently treated in PT for left shoulder and bicep pain, thoracic and shoulder pain persists but biceps and elbow pain gone. Hasn't been able to do much of anything for the past week due to the pain in scapula and upper back, worse when sitting or standing. Prior Treatments and Tests MRI 10/19/22: Multilevel degenerative changes of the lumbar spine. CT neck 2021: Bones: Degenerative straightening of the usual cervical lordosis. Otherwise normal alignment. No listhesis. Vertebral body heights maintained. No fracture. Soft tissues: Prevertebral soft tissues are normal in thickness. No paravertebral hematomas. No apical pneumothoraces. IMPRESSION: No CT evidence of acute traumatic cervical spine injury. Treatment Goals Patient/Caregiver Goals Decrease pain and improve function PT-OP-C Subjective Start: 09/22/23 08:29 Freq: Status: Active Protocol: Document 10/25/23 09:05 SP (Rec: 10/25/23 09:49 SP [id number]) OP-PT Subjective Patient Comments Patient Comments Pt has some soreness and stiffness in L shld but reports doing pretty well. PT-OP-F Manual Assessment Start: 09/22/23 08:29 Freq: Status: Active Protocol: Document 09/23/23 09:00 SAK (Rec: 09/23/23 16:14 SAK [id number]) Manual Assessments Soft Tissue Assessment Soft Tissue Mobility Assessment meño UT trigger points left greater than right. PT-OP-G Mobility & Gait Start: 09/22/23 08:29 Freq: Status: Active Protocol: Document 09/23/23 09:00 SAK (Rec: 09/23/23 16:14 SAK [id number]) OP Gait Assessment Gait Gait Assistance Required: Independent Assistive Devices Assistive Device Straight Cane Orthotic/Prosthetic Devices or Brace: No Gait Deviations General Gait Pattern Antalgic,Decreased Stride Length,Decreased Feet Clearance,Flexed Trunk Comments Gait Comments feel use of cane left UE likely contributing to left scapular and thoracic spine pain PT-OP-H Neuro Start: 09/22/23 08:29 Freq: Status: Active Protocol: Document 09/23/23 09:00 SAK (Rec: 09/23/23 16:14 SAK [id number]) Sensation Evaluation Gross Sensation Gross Sensation WNL PT-OP-J Posture/Palpation/Skin Start: 09/22/23 08:29 Freq: Status: Active Protocol: Document 09/23/23 09:00 SAK (Rec: 09/23/23 09:49 SAK [id number]) Posture Evaluation Position Standing Head/C-Spine Posture Forward Head T-Spine Posture Flexible Scoliosis on (L) L-Spine Posture Flexible Scoliosis on (R) Shoulder Posture (L) Rounded,(R) Rounded Scapula Posture (L) Protracted,(R) Protracted Arm Posture (L) Internally Rotated,(R) Internally Rotated Palpation Assessment Location subscap Palpation Findings Soft Tissue Tightness, Tenderness,Trigger Point rhomboids Palpation Findings Soft Tissue Tightness,Trigger Point PT-OP-K Range of Motion Start: 09/22/23 08:29 Freq: Status: Active Protocol: Document 09/23/23 09:00 SAK (Rec: 09/23/23 09:49 SAK [id number]) Cervical Spine Range of Motion Cervical Spine Active Flexion 50 Extension 25 Rotation Left 45 Rotation Right 45 Lateral Flexion Left 25 Lateral Flexion Right 25 ROM Limitations Soft Tissue Tightness,Bony Restriction Lumbar Spine Range of Motion Lumbar Spine Active Flexion 60 Extension 5 Rotation Left 25 Rotation Right 25 Lateral Flexion Left 20 Lateral Flexion Right 25 Shoulder Goniometric Range of Motion Shoulder Left Flexion 165 Extension 20 Abduction 160 Horizontal Abduction 90 Horizontal Adduction 20 External Rotation at 45 degrees 55 Abduction Internal Rotation Behind Back (text) L4 Right Active Shoulder ROM WFL Yes Shoulder ROM Limitations Shoulder ROM Limitations Soft Tissue Tightness,Pain Hip Goniometric Range of Motion Hip meño Hip ROM WFL No Flexion w/Knee Flexed 100 Straight Leg Raise 85 Extension 0 Internal Rotation 20 External Rotation 60 Hip ROM Limitations Hip ROM Limitations Soft Tissue Tightness,Bony Restriction PT-OP-L Special Tests Start: 09/22/23 08:29 Freq: Status: Active Protocol: Document 09/23/23 09:00 [facility] (Rec: 09/23/23 16:14 [facility] [id number]) Special Tests Lumbar Spine Special Tests Compression Test Results neg Slump Test Results neg Shoulder Special Tests Belly Press Test Results + Elevation Impingement Test Results + Drop Arm Rotator Cuff Test Results - Hip Special Tests Straight Leg Raise Test Results negative PT-OP-M Strength Start: 09/22/23 08:29 Freq: Status: Active Protocol: Document 09/23/23 09:00 [facility] (Rec: 09/23/23 16:14 [facility] [id number]) Cervical Spine Strength Cervical Spine Manual Muscle Testing Flexion (C1-2) 4 Good Extension 4 Good Rotation Left 4 Good Rotation Right 4 Good Lateral Flexion Left (C3) 4 Good Lateral Flexion Right (C3) 4 Good Trunk Strength Trunk Manual Muscle Testing Flexion 3- Fair- Extension 3- Fair- Core Stabilization poor Scapula Strength Scapula Manual Muscle Testing Right Elevation (C4) 4+ Good+ Adduction 4+ Good+ Abduction 4+ Good+ Depression 4+ Good+ Left Elevation (C4) 4- Good- Adduction 4- Good- Abduction 4- Good- Depression 4- Good- Comments painful Shoulder Strength Shoulder Manual Muscle Testing Left Flexion 4- Good- Extension 4- Good- Abduction (C5) 4- Good- Adduction 4+ Good+ External Rotation 4- Good- Internal Rotation 4- Good- Right Flexion 5 Normal Extension 5 Normal Abduction (C5) 5 Normal Adduction 5 Normal External Rotation 4 Good Internal Rotation 4+ Good+ Hip Strength Hip Manual Muscle Testing meño Flexion (L2) 4 Good Extension (S1) 3- Fair- Abduction 3- Fair- External Rotation 3+ Fair+ Internal Rotation 3+ Fair+ PT-OP-Q Treatments Start: 09/22/23 08:29 Freq: Status: Active Protocol: Document 10/25/23 09:05 SP (Rec: 10/25/23 09:49 SP [id number]) Therapeutic Exercises Sitting Exercises pulleys Sitting Exercise Name flexion and scaption Equipment Used pulleys- hold top handles scaption Reps/Minutes 10x Comments cued for proper form Scaption angle Standing Exercises overhead press Side bilateral Resistance 1# DB Equipment Used front mirror Reps/Minutes 8x Comments cued standing posture, best hands over shlds tolerante range lateral raise Side bilateral Resistance 1# DB thumbs up Equipment Used front mirror Reps/Minutes 10x Comments cued R TKE, R knee slight bent , ribcage shift L upright row Side bilateral Resistance 2# DB Equipment Used front mirror Reps/Minutes 8 reps before tired Comments cued elbows up, hands level c hest, squeeze shld blades sh shrugs and rolls Side bilateral Resistance AROM Equipment Used front mirror Reps/Minutes 10x Comments good form- feels good theraband Standing Exercise Name row, shld ext, shld ER Equipment Used L2># TB Reps/Minutes 10x Comments cued tall, maintain rhomboid engagement eccentric return Therapeutic Activity Therapeutic Activity gait correction Name trek pole Comments front mirror trekking pole left UE, cues for upright posture/trunk elongate lean L midline, scapular activation tandem walking Name fwd, bwd Reps/Minutes 3 laps 10 ft Comments rail support LUE cued elongation spine shift over L over pelvis- active R lateral abdominals and L elongate active. Improved but tire quickly/challenge to maintain before L lateral LS musculature discomfort PT-OP-R Modalities Start: 09/22/23 08:29 Freq: Status: Active Protocol: Document 09/23/23 09:00 SAK (Rec: 09/23/23 16:14 SAK [id number]) Hot Pack/Cold Pack Treatment Hot Pack Location thoracolumbar spine, L scap Patient Position Hooklying Comments 90/90 PT-OP-T Assessment and Plan Start: 09/22/23 08:29 Freq: Status: Active Protocol: Document 10/25/23 09:05 LUISA (Rec: 10/25/23 09:49 SP [id number]) Physical Therapy Assessment Goals Three Impairment trigger points Impairment upper trap and subscap Senior Living Goal (LTG) minimize trigger points in upper trap and subscap muscles to improve patient function with all usual activities LTG Duration 12/24/23 Two Impairment weakness Impairment core, scapula, left shoulder weakness Short Term Goal (STG) Patient to be instructed in progressive, individualized HEP for purposes of strengthening for improved joint support and function STG Duration 11/10/23 Pesticide Chemist Goal (LTG) Patient to be independent and compliant with HEP and demonstrate improvement in strength to at least 4+/5 for improve function of scapula, thoracic spine, left shoulder. LTG Duration 12/24/23 One Impairment pain as high as 8/10 Impairment left thoracic spine, scapula Short Term Goal (STG) decrease pain to no greater than 4/10 with all usual acativities STG Duration 11/10/23 Senior Living Goal (LTG) decrease pain to no greater than 2/10 with all usual activities including reaching overhead, behind her back, gardening, and fly fishing. LTG Duration 12/24/23 Assessment Summary Assessment Pt reports continues decreased stress on L UE on trek pole. Cues for R TKE and elongated trunk L shift midline trunk during UE exs, challenge to maintain and back tires causing discomfort. Provided cues for same elongate trunk over pelvis during tandem fwd/ bwd carryover in pool for postural corrections (lengthen L/ activate R- ribcage to pelvis abdominal & ES) and L glut med activation with soft knee positioning (tends to lock out). Next tx may want to add L glut med and HS strengthening to assist spinal alignment. Physical Therapy Plan Frequency and Duration Frequency of Treatment 2x/Week Duration of treatment (weeks) 12 Plan of Care Start Date 09/23/23 Plan of Care End Date 12/24/23 Therapeutic Interventions Therapeutic Interventions Home Exercise Program,Joint Mobilizations,Manual Therapy, Patient/Caregiver Education, Self-Care/Home Management, Taping,Therapeutic Activities, Therapeutic Exercises Modalities Cold Pack/Ice Massage,Electric Stimulation,Hot Packs, Infrared Therapy,Iontophoresis ,Ultrasound Next Visit Focus/Plan Next Note Type Treatment Note Next Visit Plan Continue PT per POC, further TB ex including wall walk, supine PNF. Possible L glut med and HS and R quad strengthening support trunk/spinal corrections for level upper body support UE strengthening.
--- NOTE | 2023-10-28 09:42 | PT.OTN ---
Current Diagnoses Spinal stenosis, lumbar region without neurogenic claudication (10/28/23) Radiculopathy, cervical region (10/28/23) Soft tissue disorder, unspecified (10/28/23) Abnormal posture (10/28/23) Weakness (10/28/23) Physical Therapy Treatment Note PT-OP-A Visit Information Start: 09/22/23 08:29 Freq: Status: Active Protocol: Document 10/28/23 09:02 SP (Rec: 10/28/23 09:52 SP [id number]) Out-Patient Physical Therapy Visit Information Visit Information Visit Type Treatment Note Visit Start Time 09:02 Visit Stop Time 09:42 Visit Number 5 Number of SUBWAY TRAIN OPERATOR Visits 2 Evaluation Information Evaluation Date 09/23/23 PT-OP-B Current Condition Start: 09/22/23 08:29 Freq: Status: Active Protocol: Document 10/23/23 09:11 SAK (Rec: 10/23/23 09:49 SAK [id number]) Current Condition History of Current Condition Onset Date 5-6 yrs Current Complaints neck and back pain, left shoulder pain History of Current Condition History neck pain, back pain, and left shoulder pain. Went fishing last week using 2 handed tate; much worsened. sore shoulder, neck and back pain. cervical radiculopathy C8, spinal stenosis lumbar region with long history of back pain 5-6 years. Neck pain more intermittant. SEveral falls hitting neck including 2021. Scoliosis thoracolumbar spine. REcently treated in PT for left shoulder and bicep pain, thoracic and shoulder pain persists but biceps and elbow pain gone. Hasn't been able to do much of anything for the past week due to the pain in scapula and upper back, worse when sitting or standing. Prior Treatments and Tests MRI 10/19/22: Multilevel degenerative changes of the lumbar spine. CT neck 2021: Bones: Degenerative straightening of the usual cervical lordosis. Otherwise normal alignment. No listhesis. Vertebral body heights maintained. No fracture. Soft tissues: Prevertebral soft tissues are normal in thickness. No paravertebral hematomas. No apical pneumothoraces. IMPRESSION: No CT evidence of acute traumatic cervical spine injury. Treatment Goals Patient/Caregiver Goals Decrease pain and improve function PT-OP-C Subjective Start: 09/22/23 08:29 Freq: Status: Active Protocol: Document 10/28/23 09:02 SP (Rec: 10/28/23 09:52 SP [id number]) OP-PT Subjective Patient Comments Patient Comments Pt reports felt good after last tx. SHe didn't get to the pool over the weekend but going today for water walking, bicycling in deep end and UE movement. PT-OP-F Manual Assessment Start: 09/22/23 08:29 Freq: Status: Active Protocol: Document 09/23/23 09:00 SAK (Rec: 09/23/23 16:14 SAK [id number]) Manual Assessments Soft Tissue Assessment Soft Tissue Mobility Assessment meño [place] trigger points left greater than right. PT-OP-G Mobility & Gait Start: 09/22/23 08:29 Freq: Status: Active Protocol: Document 09/23/23 09:00 SAK (Rec: 09/23/23 16:14 SAK [id number]) OP Gait Assessment Gait Gait Assistance Required: Independent Assistive Devices Assistive Device Straight Cane Orthotic/Prosthetic Devices or Brace: No Gait Deviations General Gait Pattern Antalgic,Decreased Stride Length,Decreased Feet Clearance,Flexed Trunk Comments Gait Comments feel use of cane left UE likely contributing to left scapular and thoracic spine pain PT-OP-H Neuro Start: 09/22/23 08:29 Freq: Status: Active Protocol: Document 09/23/23 09:00 SAK (Rec: 09/23/23 16:14 SAK [id number]) Sensation Evaluation Gross Sensation Gross Sensation WNL PT-OP-J Posture/Palpation/Skin Start: 09/22/23 08:29 Freq: Status: Active Protocol: Document 09/23/23 09:00 SAK (Rec: 09/23/23 09:49 SAK [id number]) Posture Evaluation Position Standing Head/C-Spine Posture Forward Head T-Spine Posture Flexible Scoliosis on (L) L-Spine Posture Flexible Scoliosis on (R) Shoulder Posture (L) Rounded,(R) Rounded Scapula Posture (L) Protracted,(R) Protracted Arm Posture (L) Internally Rotated,(R) Internally Rotated Palpation Assessment Location subscap Palpation Findings Soft Tissue Tightness, Tenderness,Trigger Point rhomboids Palpation Findings Soft Tissue Tightness,Trigger Point PT-OP-K Range of Motion Start: 09/22/23 08:29 Freq: Status: Active Protocol: Document 09/23/23 09:00 SAK (Rec: 09/23/23 09:49 [facility] [id number]) Cervical Spine Range of Motion Cervical Spine Active Flexion 50 Extension 25 Rotation Left 45 Rotation Right 45 Lateral Flexion Left 25 Lateral Flexion Right 25 ROM Limitations Soft Tissue Tightness,Bony Restriction Lumbar Spine Range of Motion Lumbar Spine Active Flexion 60 Extension 5 Rotation Left 25 Rotation Right 25 Lateral Flexion Left 20 Lateral Flexion Right 25 Shoulder Goniometric Range of Motion Shoulder Left Flexion 165 Extension 20 Abduction 160 Horizontal Abduction 90 Horizontal Adduction 20 External Rotation at 45 degrees 55 Abduction Internal Rotation Behind Back (text) L4 Right Active Shoulder ROM WFL Yes Shoulder ROM Limitations Shoulder ROM Limitations Soft Tissue Tightness,Pain Hip Goniometric Range of Motion Hip meño Hip ROM WFL No Flexion w/Knee Flexed 100 Straight Leg Raise 85 Extension 0 Internal Rotation 20 External Rotation 60 Hip ROM Limitations Hip ROM Limitations Soft Tissue Tightness,Bony Restriction PT-OP-L Special Tests Start: 09/22/23 08:29 Freq: Status: Active Protocol: Document 09/23/23 09:00 [facility] (Rec: 09/23/23 16:14 [facility] [id number]) Special Tests Lumbar Spine Special Tests Compression Test Results neg Slump Test Results neg Shoulder Special Tests Belly Press Test Results + Elevation Impingement Test Results + Drop Arm Rotator Cuff Test Results - Hip Special Tests Straight Leg Raise Test Results negative PT-OP-M Strength Start: 09/22/23 08:29 Freq: Status: Active Protocol: Document 09/23/23 09:00 [facility] (Rec: 09/23/23 16:14 [facility] [id number]) Cervical Spine Strength Cervical Spine Manual Muscle Testing Flexion (C1-2) 4 Good Extension 4 Good Rotation Left 4 Good Rotation Right 4 Good Lateral Flexion Left (C3) 4 Good Lateral Flexion Right (C3) 4 Good Trunk Strength Trunk Manual Muscle Testing Flexion 3- Fair- Extension 3- Fair- Core Stabilization poor Scapula Strength Scapula Manual Muscle Testing Right Elevation (C4) 4+ Good+ Adduction 4+ Good+ Abduction 4+ Good+ Depression 4+ Good+ Left Elevation (C4) 4- Good- Adduction 4- Good- Abduction 4- Good- Depression 4- Good- Comments painful Shoulder Strength Shoulder Manual Muscle Testing Left Flexion 4- Good- Extension 4- Good- Abduction (C5) 4- Good- Adduction 4+ Good+ External Rotation 4- Good- Internal Rotation 4- Good- Right Flexion 5 Normal Extension 5 Normal Abduction (C5) 5 Normal Adduction 5 Normal External Rotation 4 Good Internal Rotation 4+ Good+ Hip Strength Hip Manual Muscle Testing meño Flexion (L2) 4 Good Extension (S1) 3- Fair- Abduction 3- Fair- External Rotation 3+ Fair+ Internal Rotation 3+ Fair+ PT-OP-Q Treatments Start: 09/22/23 08:29 Freq: Status: Active Protocol: Document 10/28/23 09:02 SP (Rec: 10/28/23 09:52 SP [id number]) Therapeutic Exercises Supine Exercises PNF Supine Exercise Name trialed in PT: D1 flexion/ext, D2 flex/ ext Side bilateral Resistance 1#DB Equipment Used hooklying Reps/Minutes 2x5 reps Comments cued slow pacing, little tension L side neck with LUE. Sitting Exercises pulleys Sitting Exercise Name flexion and scaption Equipment Used pulleys- hold top handles scaption Reps/Minutes 10x Comments tactile cue for proper form Scaption Standing Exercises overhead press Side bilateral Resistance 1# DB Equipment Used front mirror Reps/Minutes 10 1#, 6 reps 2# DB Comments cued standing posture, best hands over shlds tolerante range lateral raise Standing Exercise Name approx 100 deg ABD Side bilateral Resistance 1# DB thumbs up Equipment Used front mirror Reps/Minutes 10x2- brief stand rest between sets Comments improved trunk and knees alignment upright row Side bilateral Resistance 2# DB Equipment Used front mirror Reps/Minutes 10 reps(before tired) x2 Comments Improved level shld, elbow, hands- R self correction sh shrugs and rolls Standing Exercise Name up/back/down Side bilateral Resistance AROM Equipment Used front mirror Reps/Minutes 10x Comments good form- feels good theraband Standing Exercise Name row, shld ext, shld ER Resistance L3# TB Equipment Used towel roll under arm (ER) Reps/Minutes 15x each Comments improved tall & romboid, eccentric return, 90* elbow /c ER Manual Therapy Treatment Soft Tissue Mobilization 1 Body Location L>R UT, LS Mobilization Type Rolling,Sustained Pressure, Other Intensity/Depth mod Body Position Hooklying Comments post ther ex, manual STMs and MWM head nods/turns and ed use cane handle post neck- good feedback response. Tactile cues for positioning of cane. PT-OP-R Modalities Start: 09/22/23 08:29 Freq: Status: Active Protocol: Document 09/23/23 09:00 SAK (Rec: 09/23/23 16:14 SAK [id number]) Hot Pack/Cold Pack Treatment Hot Pack Location thoracolumbar spine, L scap Patient Position Hooklying Comments 90/90 PT-OP-T Assessment and Plan Start: 09/22/23 08:29 Freq: Status: Active Protocol: Document 10/28/23 09:02 SP (Rec: 10/28/23 09:52 SP [id number]) Physical Therapy Assessment Goals Three Impairment trigger points Impairment upper trap and subscap Alf Goal (LTG) minimize trigger points in upper trap and subscap muscles to improve patient function with all usual activities LTG Duration 12/24/23 Two Impairment weakness Impairment core, scapula, left shoulder weakness Short Term Goal (STG) Patient to be instructed in progressive, individualized HEP for purposes of strengthening for improved joint support and function STG Duration 11/10/23 Alf Goal (LTG) Patient to be independent and compliant with HEP and demonstrate improvement in strength to at least 4+/5 for improve function of scapula, thoracic spine, left shoulder. LTG Duration 12/24/23 One Impairment pain as high as 8/10 Impairment left thoracic spine, scapula Short Term Goal (STG) decrease pain to no greater than 4/10 with all usual acativities STG Duration 11/10/23 Pipefitter Helper Goal (LTG) decrease pain to no greater than 2/10 with all usual activities including reaching overhead, behind her back, gardening, and fly fishing. LTG Duration 12/24/23 Assessment Summary Assessment Pt tolerated increased reps and weight this tx, improved proper form with upright rows, does reports some tiring in neck but improvement since past tx. Better midline trunk alignment. No adverse affects to trialed supine PNF AROM> DB . Physical Therapy Plan Frequency and Duration Frequency of Treatment 2x/Week Duration of treatment (weeks) 12 Plan of Care Start Date 09/23/23 Plan of Care End Date 12/24/23 Therapeutic Interventions Therapeutic Interventions Home Exercise Program,Joint Mobilizations,Manual Therapy, Patient/Caregiver Education, Self-Care/Home Management, Taping,Therapeutic Activities, Therapeutic Exercises Modalities Cold Pack/Ice Massage,Electric Stimulation,Hot Packs, Infrared Therapy,Iontophoresis ,Ultrasound Next Visit Focus/Plan Next Note Type Treatment Note Next Visit Plan Ask response to increased reps /wt, supine in PT PNF last tx. If added more appts. Continue PT per POC, further TB ex including wall walk, supine PNF.
--- NOTE | 2023-10-30 10:00 | PT.OTN ---
Current Diagnoses Spinal stenosis, lumbar region without neurogenic claudication (10/30/23) Radiculopathy, cervical region (10/30/23) Soft tissue disorder, unspecified (10/30/23) Abnormal posture (10/30/23) Weakness (10/30/23) Physical Therapy Treatment Note PT-OP-A Visit Information Start: 09/22/23 08:29 Freq: Status: Active Protocol: Document 10/30/23 09:01 SAK (Rec: 10/30/23 09:47 SAK [id number]) Out-Patient Physical Therapy Visit Information Visit Information Visit Type Treatment Note Visit Start Time 09:02 Visit Stop Time 09:45 Visit Number 6 Number of PACKING CLERK Visits 0 Evaluation Information Evaluation Date 09/23/23 PT-OP-B Current Condition Start: 09/22/23 08:29 Freq: Status: Active Protocol: Document 10/23/23 09:11 SAK (Rec: 10/23/23 09:49 SAK [id number]) Current Condition History of Current Condition Onset Date 5-6 yrs Current Complaints neck and back pain, left shoulder pain History of Current Condition History neck pain, back pain, and left shoulder pain. Went fishing last week using 2 handed tate; much worsened. sore shoulder, neck and back pain. cervical radiculopathy C8, spinal stenosis lumbar region with long history of back pain 5-6 years. Neck pain more intermittant. SEveral falls hitting neck including 2021. Scoliosis thoracolumbar spine. REcently treated in PT for left shoulder and bicep pain, thoracic and shoulder pain persists but biceps and elbow pain gone. Hasn't been able to do much of anything for the past week due to the pain in scapula and upper back, worse when sitting or standing. Prior Treatments and Tests MRI 10/19/22: Multilevel degenerative changes of the lumbar spine. CT neck 2021: Bones: Degenerative straightening of the usual cervical lordosis. Otherwise normal alignment. No listhesis. Vertebral body heights maintained. No fracture. Soft tissues: Prevertebral soft tissues are normal in thickness. No paravertebral hematomas. No apical pneumothoraces. IMPRESSION: No CT evidence of acute traumatic cervical spine injury. Treatment Goals Patient/Caregiver Goals Decrease pain and improve function PT-OP-C Subjective Start: 09/22/23 08:29 Freq: Status: Active Protocol: Document 10/30/23 09:01 SAK (Rec: 10/30/23 09:47 [facility] [id number]) OP-PT Subjective Patient Comments Patient Comments Patient reports tired. Pain improved. Hasn't had to use heat as much. Going to go see the doctor regarding MRI of neck. Not using cane/pole as much. PT-OP-F Manual Assessment Start: 09/22/23 08:29 Freq: Status: Active Protocol: Document 09/23/23 09:00 [facility] (Rec: 09/23/23 16:14 [facility] [id number]) Manual Assessments Soft Tissue Assessment Soft Tissue Mobility Assessment meño [place] trigger points left greater than right. PT-OP-G Mobility & Gait Start: 09/22/23 08:29 Freq: Status: Active Protocol: Document 09/23/23 09:00 [facility] (Rec: 09/23/23 16:14 [facility] [id number]) OP Gait Assessment Gait Gait Assistance Required: Independent Assistive Devices Assistive Device Straight Cane Orthotic/Prosthetic Devices or Brace: No Gait Deviations General Gait Pattern Antalgic,Decreased Stride Length,Decreased Feet Clearance,Flexed Trunk Comments Gait Comments feel use of cane left UE likely contributing to left scapular and thoracic spine pain PT-OP-H Neuro Start: 09/22/23 08:29 Freq: Status: Active Protocol: Document 09/23/23 09:00 [facility] (Rec: 09/23/23 16:14 [facility] [id number]) Sensation Evaluation Gross Sensation Gross Sensation WNL PT-OP-J Posture/Palpation/Skin Start: 09/22/23 08:29 Freq: Status: Active Protocol: Document 09/23/23 09:00 [facility] (Rec: 09/23/23 09:49 [facility] [id number]) Posture Evaluation Position Standing Head/C-Spine Posture Forward Head T-Spine Posture Flexible Scoliosis on (L) L-Spine Posture Flexible Scoliosis on (R) Shoulder Posture (L) Rounded,(R) Rounded Scapula Posture (L) Protracted,(R) Protracted Arm Posture (L) Internally Rotated,(R) Internally Rotated Palpation Assessment Location subscap Palpation Findings Soft Tissue Tightness, Tenderness,Trigger Point rhomboids Palpation Findings Soft Tissue Tightness,Trigger Point PT-OP-K Range of Motion Start: 09/22/23 08:29 Freq: Status: Active Protocol: Document 09/23/23 09:00 [facility] (Rec: 09/23/23 09:49 [facility] [id number]) Cervical Spine Range of Motion Cervical Spine Active Flexion 50 Extension 25 Rotation Left 45 Rotation Right 45 Lateral Flexion Left 25 Lateral Flexion Right 25 ROM Limitations Soft Tissue Tightness,Bony Restriction Lumbar Spine Range of Motion Lumbar Spine Active Flexion 60 Extension 5 Rotation Left 25 Rotation Right 25 Lateral Flexion Left 20 Lateral Flexion Right 25 Shoulder Goniometric Range of Motion Shoulder Left Flexion 165 Extension 20 Abduction 160 Horizontal Abduction 90 Horizontal Adduction 20 External Rotation at 45 degrees 55 Abduction Internal Rotation Behind Back (text) L4 Right Active Shoulder ROM WFL Yes Shoulder ROM Limitations Shoulder ROM Limitations Soft Tissue Tightness,Pain Hip Goniometric Range of Motion Hip meño Hip ROM WFL No Flexion w/Knee Flexed 100 Straight Leg Raise 85 Extension 0 Internal Rotation 20 External Rotation 60 Hip ROM Limitations Hip ROM Limitations Soft Tissue Tightness,Bony Restriction PT-OP-L Special Tests Start: 09/22/23 08:29 Freq: Status: Active Protocol: Document 09/23/23 09:00 [facility] (Rec: 09/23/23 16:14 [facility] [id number]) Special Tests Lumbar Spine Special Tests Compression Test Results neg Slump Test Results neg Shoulder Special Tests Belly Press Test Results + Elevation Impingement Test Results + Drop Arm Rotator Cuff Test Results - Hip Special Tests Straight Leg Raise Test Results negative PT-OP-M Strength Start: 09/22/23 08:29 Freq: Status: Active Protocol: Document 09/23/23 09:00 [facility] (Rec: 09/23/23 16:14 [facility] [id number]) Cervical Spine Strength Cervical Spine Manual Muscle Testing Flexion (C1-2) 4 Good Extension 4 Good Rotation Left 4 Good Rotation Right 4 Good Lateral Flexion Left (C3) 4 Good Lateral Flexion Right (C3) 4 Good Trunk Strength Trunk Manual Muscle Testing Flexion 3- Fair- Extension 3- Fair- Core Stabilization poor Scapula Strength Scapula Manual Muscle Testing Right Elevation (C4) 4+ Good+ Adduction 4+ Good+ Abduction 4+ Good+ Depression 4+ Good+ Left Elevation (C4) 4- Good- Adduction 4- Good- Abduction 4- Good- Depression 4- Good- Comments painful Shoulder Strength Shoulder Manual Muscle Testing Left Flexion 4- Good- Extension 4- Good- Abduction (C5) 4- Good- Adduction 4+ Good+ External Rotation 4- Good- Internal Rotation 4- Good- Right Flexion 5 Normal Extension 5 Normal Abduction (C5) 5 Normal Adduction 5 Normal External Rotation 4 Good Internal Rotation 4+ Good+ Hip Strength Hip Manual Muscle Testing meño Flexion (L2) 4 Good Extension (S1) 3- Fair- Abduction 3- Fair- External Rotation 3+ Fair+ Internal Rotation 3+ Fair+ PT-OP-Q Treatments Start: 09/22/23 08:29 Freq: Status: Active Protocol: Document 10/30/23 09:01 [facility] (Rec: 10/30/23 09:47 [facility] [id number]) Cardio Equipment Recumbent Stepper (Sci-Fit) Duration (Minutes) 6 Resistance 2 Seat Position 15 Other to facil symmetrical movement Therapeutic Exercises Supine Exercises PNF Supine Exercise Name D1 flexion/ext, D2 flex/ ext Side bilateral Resistance 1#DB Equipment Used hooklying Reps/Minutes 2x5 reps Comments cued slow pacing, little tension L side neck with LUE. Sitting Exercises pulleys Sitting Exercise Name flexion and scaption Equipment Used pulleys- hold top handles scaption Reps/Minutes 10x Comments tactile cue for proper form Scaption Standing Exercises overhead press Side bilateral Resistance 2# DB Equipment Used front mirror Reps/Minutes 10x2 Comments cued standing posture, best hands over shlds tolerante range lateral raise Standing Exercise Name approx 100 deg ABD Side bilateral Resistance 1# DB thumbs up Equipment Used front mirror Reps/Minutes 10x2- brief stand rest between sets Comments improved trunk and knees alignment upright row Side bilateral Resistance 2# DB Equipment Used front mirror Reps/Minutes 10 reps(before tired) x2 Comments Improved level shld, elbow, hands- R self correction sh shrugs and rolls Standing Exercise Name up/back/down Side bilateral Resistance AROM Equipment Used front mirror Reps/Minutes 10x Comments good form- feels good theraband Standing Exercise Name row, shld ext, shld ER Resistance L3# TB Equipment Used towel roll under arm (ER) Reps/Minutes 15x each Comments improved tall & romboid, eccentric return, 90* elbow /c ER Therapeutic Activity Therapeutic Activity gait correction Name trek pole Comments front mirror trekking pole left UE, cues for upright posture/trunk elongate lean L midline, scapular activation, dec pole use tandem walking Name fwd, bwd Reps/Minutes 3 laps 10 ft Comments rail support LUE cued elongation spine shift over L over pelvis- active R lateral abdominals and gluteals and L elongate active. Improved but tire quickly/challenge to maintain before L lateral LS musculature discomfort Manual Therapy Treatment Soft Tissue Mobilization 1 Body Location L>R UT, LS Mobilization Type Rolling,Sustained Pressure, Other Intensity/Depth mod Body Position Hooklying Comments post ther ex, manual STMs and MWM head nods/turns and ed use cane handle post neck- good feedback response. Tactile cues for positioning of cane. PT-OP-R Modalities Start: 09/22/23 08:29 Freq: Status: Active Protocol: Document 09/23/23 09:00 [facility] (Rec: 09/23/23 16:14 [facility] [id number]) Hot Pack/Cold Pack Treatment Hot Pack Location thoracolumbar spine, L scap Patient Position Hooklying Comments 90/90 PT-OP-T Assessment and Plan Start: 09/22/23 08:29 Freq: Status: Active Protocol: Document 10/30/23 09:01 [facility] (Rec: 10/30/23 09:47 [facility] [id number]) Physical Therapy Assessment Goals Three Impairment trigger points Impairment upper trap and subscap Halfway Goal (LTG) minimize trigger points in upper trap and subscap muscles to improve patient function with all usual activities LTG Duration 12/24/23 Two Impairment weakness Impairment core, scapula, left shoulder weakness Short Term Goal (STG) Patient to be instructed in progressive, individualized HEP for purposes of strengthening for improved joint support and function STG Duration 11/10/23 Shower Enclosure Installer Goal (LTG) Patient to be independent and compliant with HEP and demonstrate improvement in strength to at least 4+/5 for improve function of scapula, thoracic spine, left shoulder. LTG Duration 12/24/23 One Impairment pain as high as 8/10 Impairment left thoracic spine, scapula Short Term Goal (STG) decrease pain to no greater than 4/10 with all usual acativities STG Duration 11/10/23 Shower Enclosure Installer Goal (LTG) decrease pain to no greater than 2/10 with all usual activities including reaching overhead, behind her back, gardening, and fly fishing. LTG Duration 12/24/23 Assessment Summary Assessment decreasing pain scapular region with decreased pressure on cane, improved gait mechanics especially when focuses and uses mirror. Fatigue in with UE ex but no inc in pain Had pt practice weight acceptance onto right leg phase of gait with improved awareness of gluteal activation. Physical Therapy Plan Frequency and Duration Frequency of Treatment 1x/Week Duration of treatment (weeks) 12 Plan of Care Start Date 09/23/23 Plan of Care End Date 12/24/23 Therapeutic Interventions Therapeutic Interventions Home Exercise Program,Joint Mobilizations,Manual Therapy, Patient/Caregiver Education, Self-Care/Home Management, Taping,Therapeutic Activities, Therapeutic Exercises Modalities Cold Pack/Ice Massage,Electric Stimulation,Hot Packs, Infrared Therapy,Iontophoresis ,Ultrasound Next Visit Focus/Plan Next Note Type Treatment Note Next Visit Plan Review supine PNF and weight acceptance weight shift and add to HEP. Continue PT per POC, further TB ex including wall walk. 4 stairs working on hip and core stab and strengthening. Dec frequency to 1x/wk
--- NOTE | 2023-11-27 14:58 | PT.OTN ---
Current Diagnoses Spinal stenosis, lumbar region without neurogenic claudication (11/27/23) Radiculopathy, cervical region (11/27/23) Soft tissue disorder, unspecified (11/27/23) Abnormal posture (11/27/23) Weakness (11/27/23) Physical Therapy Treatment Note PT-OP-A Visit Information Start: 09/22/23 08:29 Freq: Status: Active Protocol: Document 11/27/23 09:04 SAK (Rec: 11/27/23 09:46 SAK [id number]) Out-Patient Physical Therapy Visit Information Visit Information Visit Type Treatment Note Visit Start Time 09:02 Visit Stop Time 09:45 Visit Number 7 Number of INTERNET AND E BUSINESS PROJECT MANAGER Visits 0 Evaluation Information Evaluation Date 09/23/23 PT-OP-B Current Condition Start: 09/22/23 08:29 Freq: Status: Active Protocol: Document 11/27/23 09:04 SAK (Rec: 11/27/23 09:46 SAK [id number]) Current Condition History of Current Condition Onset Date 5-6 yrs Current Complaints neck and back pain, left shoulder pain History of Current Condition History neck pain, back pain, and left shoulder pain. Went fishing last week using 2 handed tate; much worsened. sore shoulder, neck and back pain. cervical radiculopathy C8, spinal stenosis lumbar region with long history of back pain 5-6 years. Neck pain more intermittant. SEveral falls hitting neck including 2021. Scoliosis thoracolumbar spine. REcently treated in PT for left shoulder and bicep pain, thoracic and shoulder pain persists but biceps and elbow pain gone. Hasn't been able to do much of anything for the past week due to the pain in scapula and upper back, worse when sitting or standing. Prior Treatments and Tests MRI 10/19/22: Multilevel degenerative changes of the lumbar spine. CT neck 2021: Bones: Degenerative straightening of the usual cervical lordosis. Otherwise normal alignment. No listhesis. Vertebral body heights maintained. No fracture. Soft tissues: Prevertebral soft tissues are normal in thickness. No paravertebral hematomas. No apical pneumothoraces. IMPRESSION: No CT evidence of acute traumatic cervical spine injury. PT-OP-C Subjective Start: 09/22/23 08:29 Freq: Status: Active Protocol: Document 11/27/23 09:04 SAK (Rec: 11/27/23 09:46 SAK [id number]) OP-PT Subjective Patient Comments Patient Comments c/o increased left hip pain ( sharp) and wants to give out. Pain increases with walking. Decreases with laying down. Has been gardening, hauling hoses and setting sprinklers Also c/o increased breathing difficulty, going to have MRI of heart due to history leaky valves. Has been very tired. Hasn't been back to the pool due to change in schedule for summer. Shoulder blade and neck much better, still there but not primary complaint. PT-OP-F Manual Assessment Start: 09/22/23 08:29 Freq: Status: Active Protocol: Document 09/23/23 09:00 [facility] (Rec: 09/23/23 16:14 [facility] [id number]) Manual Assessments Soft Tissue Assessment Soft Tissue Mobility Assessment meño [place] trigger points left greater than right. PT-OP-G Mobility & Gait Start: 09/22/23 08:29 Freq: Status: Active Protocol: Document 09/23/23 09:00 [facility] (Rec: 09/23/23 16:14 [facility] [id number]) OP Gait Assessment Gait Gait Assistance Required: Independent Assistive Devices Assistive Device Straight Cane Orthotic/Prosthetic Devices or Brace: No Gait Deviations General Gait Pattern Antalgic,Decreased Stride Length,Decreased Feet Clearance,Flexed Trunk Comments Gait Comments feel use of cane left UE likely contributing to left scapular and thoracic spine pain PT-OP-H Neuro Start: 09/22/23 08:29 Freq: Status: Active Protocol: Document 09/23/23 09:00 [facility] (Rec: 09/23/23 16:14 [facility] [id number]) Sensation Evaluation Gross Sensation Gross Sensation WNL PT-OP-J Posture/Palpation/Skin Start: 09/22/23 08:29 Freq: Status: Active Protocol: Document 09/23/23 09:00 [facility] (Rec: 09/23/23 09:49 [facility] [id number]) Posture Evaluation Position Standing Head/C-Spine Posture Forward Head T-Spine Posture Flexible Scoliosis on (L) L-Spine Posture Flexible Scoliosis on (R) Shoulder Posture (L) Rounded,(R) Rounded Scapula Posture (L) Protracted,(R) Protracted Arm Posture (L) Internally Rotated,(R) Internally Rotated Palpation Assessment Location subscap Palpation Findings Soft Tissue Tightness, Tenderness,Trigger Point rhomboids Palpation Findings Soft Tissue Tightness,Trigger Point PT-OP-K Range of Motion Start: 09/22/23 08:29 Freq: Status: Active Protocol: Document 09/23/23 09:00 [facility] (Rec: 09/23/23 09:49 [facility] [id number]) Cervical Spine Range of Motion Cervical Spine Active Flexion 50 Extension 25 Rotation Left 45 Rotation Right 45 Lateral Flexion Left 25 Lateral Flexion Right 25 ROM Limitations Soft Tissue Tightness,Bony Restriction Lumbar Spine Range of Motion Lumbar Spine Active Flexion 60 Extension 5 Rotation Left 25 Rotation Right 25 Lateral Flexion Left 20 Lateral Flexion Right 25 Shoulder Goniometric Range of Motion Shoulder Left Flexion 165 Extension 20 Abduction 160 Horizontal Abduction 90 Horizontal Adduction 20 External Rotation at 45 degrees 55 Abduction Internal Rotation Behind Back (text) L4 Right Active Shoulder ROM WFL Yes Shoulder ROM Limitations Shoulder ROM Limitations Soft Tissue Tightness,Pain Hip Goniometric Range of Motion Hip meño Hip ROM WFL No Flexion w/Knee Flexed 100 Straight Leg Raise 85 Extension 0 Internal Rotation 20 External Rotation 60 Hip ROM Limitations Hip ROM Limitations Soft Tissue Tightness,Bony Restriction PT-OP-L Special Tests Start: 09/22/23 08:29 Freq: Status: Active Protocol: Document 09/23/23 09:00 [facility] (Rec: 09/23/23 16:14 [facility] [id number]) Special Tests Lumbar Spine Special Tests Compression Test Results neg Slump Test Results neg Shoulder Special Tests Belly Press Test Results + Elevation Impingement Test Results + Drop Arm Rotator Cuff Test Results - Hip Special Tests Straight Leg Raise Test Results negative PT-OP-M Strength Start: 09/22/23 08:29 Freq: Status: Active Protocol: Document 09/23/23 09:00 [facility] (Rec: 09/23/23 16:14 [facility] [id number]) Cervical Spine Strength Cervical Spine Manual Muscle Testing Flexion (C1-2) 4 Good Extension 4 Good Rotation Left 4 Good Rotation Right 4 Good Lateral Flexion Left (C3) 4 Good Lateral Flexion Right (C3) 4 Good Trunk Strength Trunk Manual Muscle Testing Flexion 3- Fair- Extension 3- Fair- Core Stabilization poor Scapula Strength Scapula Manual Muscle Testing Right Elevation (C4) 4+ Good+ Adduction 4+ Good+ Abduction 4+ Good+ Depression 4+ Good+ Left Elevation (C4) 4- Good- Adduction 4- Good- Abduction 4- Good- Depression 4- Good- Comments painful Shoulder Strength Shoulder Manual Muscle Testing Left Flexion 4- Good- Extension 4- Good- Abduction (C5) 4- Good- Adduction 4+ Good+ External Rotation 4- Good- Internal Rotation 4- Good- Right Flexion 5 Normal Extension 5 Normal Abduction (C5) 5 Normal Adduction 5 Normal External Rotation 4 Good Internal Rotation 4+ Good+ Hip Strength Hip Manual Muscle Testing meño Flexion (L2) 4 Good Extension (S1) 3- Fair- Abduction 3- Fair- External Rotation 3+ Fair+ Internal Rotation 3+ Fair+ PT-OP-Q Treatments Start: 09/22/23 08:29 Freq: Status: Active Protocol: Document 11/27/23 09:04 [facility] (Rec: 11/27/23 09:46 [facility] [id number]) Cardio Equipment Recumbent Stepper (Sci-Fit) Duration (Minutes) 8 Resistance 2 Seat Position 15 Other to facil symmetrical movement Gym Equipment Shuttle Recovery Unilateral Squats Resistance 37 Shuttle Recovery Platform Stable Reps/Time 10x2 Bilateral Squats Details cues for LE alignment Resistance 50 Shuttle Recovery Platform Unstable Reps/Time 10x2 Therapeutic Exercises Standing Exercises gait correctiobn Equipment Used mirror Comments trekking pole left UE, cues for upright posture, scapular activation, dec U Therapeutic Activity Therapeutic Activity gait correction Name trek pole Comments front mirror trekking pole left UE, cues for upright posture/trunk elongate lean L midline, scapular activation, dec pole use Manual Therapy Treatment Soft Tissue Mobilization 1 Body Location right ITB, piriformis Mobilization Type Myofascial Release,Rolling, Sustained Pressure Intensity/Depth mod Body Position Sidelying PT-OP-R Modalities Start: 09/22/23 08:29 Freq: Status: Active Protocol: Document 09/23/23 09:00 [facility] (Rec: 09/23/23 16:14 [facility] [id number]) Hot Pack/Cold Pack Treatment Hot Pack Location thoracolumbar spine, L scap Patient Position Hooklying Comments 90/90 PT-OP-T Assessment and Plan Start: 09/22/23 08:29 Freq: Status: Active Protocol: Document 11/27/23 09:04 [facility] (Rec: 11/27/23 09:46 [facility] [id number]) Physical Therapy Assessment Goals Three Impairment trigger points Impairment upper trap and subscap Chief Of Safety And Protection Goal (LTG) minimize trigger points in upper trap and subscap muscles to improve patient function with all usual activities 10/30/23: good goal progress LTG Duration 12/24/23 Two Impairment weakness Impairment core, scapula, left shoulder weakness Short Term Goal (STG) Patient to be instructed in progressive, individualized HEP for purposes of strengthening for improved joint support and function 10/30/23: continue to progress HEP, good compliance except hasn't started UE weight exercises yet; was issued updated HEP HO STG Duration 11/10/23 Chief Of Safety And Protection Goal (LTG) Patient to be independent and compliant with HEP and demonstrate improvement in strength to at least 4+/5 for improve function of scapula, thoracic spine, left shoulder. LTG Duration 12/24/23 One Impairment pain as high as 8/10 Impairment left thoracic spine, scapula Short Term Goal (STG) decrease pain to no greater than 4/10 with all usual acativities 11/09/23: patient reports mostly no greater than 5/10, good goal progress STG Duration 11/10/23 Senior Care Goal (LTG) decrease pain to no greater than 2/10 with all usual activities including reaching overhead, behind her back, gardening, and fly fishing. LTG Duration 12/24/23 Assessment Summary Assessment primary c/o today lateral right low back and hip. Signs and symptoms of hip bursitis; patient instructed in anatomy and physiology and potential cause likely asymmetry of gait . Physical Therapy Plan Frequency and Duration Frequency of Treatment 1x/Week Duration of treatment (weeks) 12 Plan of Care Start Date 09/23/23 Plan of Care End Date 12/24/23 Therapeutic Interventions Therapeutic Interventions Home Exercise Program,Joint Mobilizations,Manual Therapy, Patient/Caregiver Education, Self-Care/Home Management, Taping,Therapeutic Activities, Therapeutic Exercises Modalities Cold Pack/Ice Massage,Electric Stimulation,Hot Packs, Infrared Therapy,Iontophoresis ,Ultrasound Next Visit Focus/Plan Next Note Type Treatment Note Next Visit Plan Review supine PNF and weight acceptance weight shift and add to HEP. Continue PT per POC, further TB ex including wall walk. 4 stairs working on hip and core stab and strengthening. Dec frequency to 1x/wk
--- NOTE | 2023-12-02 12:17 | PT.OTN ---
Current Diagnoses Spinal stenosis, lumbar region without neurogenic claudication (12/02/23) Radiculopathy, cervical region (12/02/23) Soft tissue disorder, unspecified (12/02/23) Abnormal posture (12/02/23) Weakness (12/02/23) Physical Therapy Treatment Note PT-OP-A Visit Information Start: 09/22/23 08:29 Freq: Status: Active Protocol: Document 12/02/23 10:35 SAK (Rec: 12/02/23 11:17 SAK [id number]) Out-Patient Physical Therapy Visit Information Visit Information Visit Type Treatment Note Visit Start Time 10:35 Visit Stop Time 11:16 Visit Number 7 Number of PRISM MEASURER Visits 0 Evaluation Information Evaluation Date 09/23/23 PT-OP-B Current Condition Start: 09/22/23 08:29 Freq: Status: Active Protocol: Document 12/02/23 10:35 SAK (Rec: 12/02/23 11:17 SAK [id number]) Current Condition History of Current Condition Onset Date 5-6 yrs Current Complaints neck and back pain, left shoulder pain History of Current Condition History neck pain, back pain, and left shoulder pain. Went fishing last week using 2 handed tate; much worsened. sore shoulder, neck and back pain. cervical radiculopathy C8, spinal stenosis lumbar region with long history of back pain 5-6 years. Neck pain more intermittant. SEveral falls hitting neck including 2021. Scoliosis thoracolumbar spine. REcently treated in PT for left shoulder and bicep pain, thoracic and shoulder pain persists but biceps and elbow pain gone. Hasn't been able to do much of anything for the past week due to the pain in scapula and upper back, worse when sitting or standing. Prior Treatments and Tests MRI 10/19/22: Multilevel degenerative changes of the lumbar spine. CT neck 2021: Bones: Degenerative straightening of the usual cervical lordosis. Otherwise normal alignment. No listhesis. Vertebral body heights maintained. No fracture. Soft tissues: Prevertebral soft tissues are normal in thickness. No paravertebral hematomas. No apical pneumothoraces. IMPRESSION: No CT evidence of acute traumatic cervical spine injury. PT-OP-C Subjective Start: 09/22/23 08:29 Freq: Status: Active Protocol: Document 12/02/23 10:35 SAK (Rec: 12/02/23 11:17 SAK [id number]) OP-PT Subjective Patient Comments Patient Comments Minimal pain. Has had a cold, has been pacing herself with yardwork but has continued. PT-OP-F Manual Assessment Start: 09/22/23 08:29 Freq: Status: Active Protocol: Document 09/23/23 09:[address] [facility] (Rec: 09/23/23 16:[address] [facility] [id number]) Manual Assessments Soft Tissue Assessment Soft Tissue Mobility Assessment meño [place] trigger points left greater than right. PT-OP-G Mobility & Gait Start: 09/22/23 08:29 Freq: Status: Active Protocol: Document 09/23/23 09:[address] [facility] (Rec: 09/23/23 16:[address] [facility] [id number]) OP Gait Assessment Gait Gait Assistance Required: Independent Assistive Devices Assistive Device Straight Cane Orthotic/Prosthetic Devices or Brace: No Gait Deviations General Gait Pattern Antalgic,Decreased Stride Length,Decreased Feet Clearance,Flexed Trunk Comments Gait Comments feel use of cane left UE likely contributing to left scapular and thoracic spine pain PT-OP-H Neuro Start: 09/22/23 08:29 Freq: Status: Active Protocol: Document 09/23/23 09:[address] [facility] (Rec: 09/23/23 16:[address] [facility] [id number]) Sensation Evaluation Gross Sensation Gross Sensation WNL PT-OP-J Posture/Palpation/Skin Start: 09/22/23 08:29 Freq: Status: Active Protocol: Document 09/23/23 09:[address] [facility] (Rec: 09/23/23 09:[address] [facility] [id number]) Posture Evaluation Position Standing Head/C-Spine Posture Forward Head T-Spine Posture Flexible Scoliosis on (L) L-Spine Posture Flexible Scoliosis on (R) Shoulder Posture (L) Rounded,(R) Rounded Scapula Posture (L) Protracted,(R) Protracted Arm Posture (L) Internally Rotated,(R) Internally Rotated Palpation Assessment Location subscap Palpation Findings Soft Tissue Tightness, Tenderness,Trigger Point rhomboids Palpation Findings Soft Tissue Tightness,Trigger Point PT-OP-K Range of Motion Start: 09/22/23 08:29 Freq: Status: Active Protocol: Document 09/23/23 09:[address] [facility] (Rec: 09/23/23 09:[address] [facility] [id number]) Cervical Spine Range of Motion Cervical Spine Active Flexion 50 Extension 25 Rotation Left 45 Rotation Right 45 Lateral Flexion Left 25 Lateral Flexion Right 25 ROM Limitations Soft Tissue Tightness,Bony Restriction Lumbar Spine Range of Motion Lumbar Spine Active Flexion 60 Extension 5 Rotation Left 25 Rotation Right 25 Lateral Flexion Left 20 Lateral Flexion Right 25 Shoulder Goniometric Range of Motion Shoulder Left Flexion 165 Extension 20 Abduction 160 Horizontal Abduction 90 Horizontal Adduction 20 External Rotation at 45 degrees 55 Abduction Internal Rotation Behind Back (text) L4 Right Active Shoulder ROM WFL Yes Shoulder ROM Limitations Shoulder ROM Limitations Soft Tissue Tightness,Pain Hip Goniometric Range of Motion Hip meño Hip ROM WFL No Flexion w/Knee Flexed 100 Straight Leg Raise 85 Extension 0 Internal Rotation 20 External Rotation 60 Hip ROM Limitations Hip ROM Limitations Soft Tissue Tightness,Bony Restriction PT-OP-L Special Tests Start: 09/22/23 08:29 Freq: Status: Active Protocol: Document 09/23/23 09:[address] [facility] (Rec: 09/23/23 16:[address] [facility] [id number]) Special Tests Lumbar Spine Special Tests Compression Test Results neg Slump Test Results neg Shoulder Special Tests Belly Press Test Results + Elevation Impingement Test Results + Drop Arm Rotator Cuff Test Results - Hip Special Tests Straight Leg Raise Test Results negative PT-OP-M Strength Start: 09/22/23 08:29 Freq: Status: Active Protocol: Document 09/23/23 09:[address] [facility] (Rec: 09/23/23 16:[address] [facility] [id number]) Cervical Spine Strength Cervical Spine Manual Muscle Testing Flexion (C1-2) 4 Good Extension 4 Good Rotation Left 4 Good Rotation Right 4 Good Lateral Flexion Left (C3) 4 Good Lateral Flexion Right (C3) 4 Good Trunk Strength Trunk Manual Muscle Testing Flexion 3- Fair- Extension 3- Fair- Core Stabilization poor Scapula Strength Scapula Manual Muscle Testing Right Elevation (C4) 4+ Good+ Adduction 4+ Good+ Abduction 4+ Good+ Depression 4+ Good+ Left Elevation (C4) 4- Good- Adduction 4- Good- Abduction 4- Good- Depression 4- Good- Comments painful Shoulder Strength Shoulder Manual Muscle Testing Left Flexion 4- Good- Extension 4- Good- Abduction (C5) 4- Good- Adduction 4+ Good+ External Rotation 4- Good- Internal Rotation 4- Good- Right Flexion 5 Normal Extension 5 Normal Abduction (C5) 5 Normal Adduction 5 Normal External Rotation 4 Good Internal Rotation 4+ Good+ Hip Strength Hip Manual Muscle Testing meño Flexion (L2) 4 Good Extension (S1) 3- Fair- Abduction 3- Fair- External Rotation 3+ Fair+ Internal Rotation 3+ Fair+ PT-OP-Q Treatments Start: 09/22/23 08:29 Freq: Status: Active Protocol: Document 12/02/23 10:[address] [facility] (Rec: 12/02/23 11:[address] [facility] [id number]) Cardio Equipment Recumbent Stepper (Sci-Fit) Duration (Minutes) 8 Resistance 2 Seat Position 15 Other to facil symmetrical movement Gym Equipment Shuttle Recovery Unilateral Squats Resistance 37 Shuttle Recovery Platform Stable Reps/Time 10x2 Bilateral Squats Details cues for LE alignment Resistance 50 Shuttle Recovery Platform Unstable Reps/Time 10x2 Therapeutic Exercises Supine Exercises HS stretch Reps/Minutes 2x30 SKTC Reps/Minutes 2x30 pec stretch Reps/Minutes 2x30 PNF Supine Exercise Name D1 flexion/ext, D2 flex/ ext Side bilateral Resistance 1#DB Equipment Used hooklying Reps/Minutes 2x5 reps Comments cued slow pacing, little tension L side neck with LUE. Therapeutic Activity Therapeutic Activity gait correction Name trek pole Comments front mirror trekking pole left UE, cues for upright posture/trunk elongate lean L midline, scapular activation, dec pole use Manual Therapy Treatment Soft Tissue Mobilization 1 Body Location right ITB, piriformis Mobilization Type Myofascial Release,Rolling, Sustained Pressure Intensity/Depth mod Body Position Sidelying PT-OP-R Modalities Start: 09/22/23 08:29 Freq: Status: Active Protocol: Document 09/23/23 09:[address] [facility] (Rec: 09/23/23 16:[address] [facility] [id number]) Hot Pack/Cold Pack Treatment Hot Pack Location thoracolumbar spine, L scap Patient Position Hooklying Comments 90/90 PT-OP-T Assessment and Plan Start: 09/22/23 08:29 Freq: Status: Active Protocol: Document 12/02/23 10:[address] [facility] (Rec: 12/02/23 11:[address] [facility] [id number]) Physical Therapy Assessment Goals Three Impairment trigger points Impairment upper trap and subscap Usp Goal (LTG) minimize trigger points in upper trap and subscap muscles to improve patient function with all usual activities 10/30/23: good goal progress LTG Duration 12/24/23 Two Impairment weakness Impairment core, scapula, left shoulder weakness Short Term Goal (STG) Patient to be instructed in progressive, individualized HEP for purposes of strengthening for improved joint support and function 10/30/23: continue to progress HEP, good compliance except hasn't started UE weight exercises yet; was issued updated HEP HO STG Duration 11/10/23 Cloth Winding Supervisor Goal (LTG) Patient to be independent and compliant with HEP and demonstrate improvement in strength to at least 4+/5 for improve function of scapula, thoracic spine, left shoulder. LTG Duration 12/24/23 One Impairment pain as high as 8/10 Impairment left thoracic spine, scapula Short Term Goal (STG) decrease pain to no greater than 4/10 with all usual acativities 11/09/23: patient reports mostly no greater than 5/10, good goal progress STG Duration 11/10/23 Usp Goal (LTG) decrease pain to no greater than 2/10 with all usual activities including reaching overhead, behind her back, gardening, and fly fishing. LTG Duration 12/24/23 Progress Towards Goals Progress Towards Goals Progressing Toward Goals Assessment Summary Assessment Symptoms improved left hip, min pain anywhere today. Has rested more due to cold. Improved gait mechanics Physical Therapy Plan Frequency and Duration Frequency of Treatment 1x/Week Duration of treatment (weeks) 12 Plan of Care Start Date 09/23/23 Plan of Care End Date 12/24/23 Therapeutic Interventions Therapeutic Interventions Home Exercise Program,Joint Mobilizations,Manual Therapy, Patient/Caregiver Education, Self-Care/Home Management, Taping,Therapeutic Activities, Therapeutic Exercises Modalities Cold Pack/Ice Massage,Electric Stimulation,Hot Packs, Infrared Therapy,Iontophoresis ,Ultrasound Next Visit Focus/Plan Next Note Type Treatment Note Next Visit Plan Continue strengthening, gait training, manual therapy and modalities PRN to address PT goals.
--- NOTE | 2023-12-09 16:35 | PT.OTN ---
Current Diagnoses Spinal stenosis, lumbar region without neurogenic claudication (12/09/23) Radiculopathy, cervical region (12/09/23) Soft tissue disorder, unspecified (12/09/23) Abnormal posture (12/09/23) Weakness (12/09/23) Physical Therapy Treatment Note PT-OP-A Visit Information Start: 09/22/23 08:29 Freq: Status: Active Protocol: Document 12/09/23 09:51 SAK (Rec: 12/09/23 10:29 SAK [id number]) Out-Patient Physical Therapy Visit Information Visit Information Visit Type Treatment Note Visit Start Time 09:50 Visit Stop Time 10:15 Visit Number 9 Number of FIRE LOSS PREVENTION ENGINEER Visits 0 PT-OP-B Current Condition Start: 09/22/23 08:29 Freq: Status: Active Protocol: Document 12/09/23 09:51 SAK (Rec: 12/09/23 10:29 SAK [id number]) Current Condition History of Current Condition Onset Date 5-6 yrs Current Complaints neck and back pain, left shoulder pain History of Current Condition History neck pain, back pain, and left shoulder pain. Went fishing last week using 2 handed tate; much worsened. sore shoulder, neck and back pain. cervical radiculopathy C8, spinal stenosis lumbar region with long history of back pain 5-6 years. Neck pain more intermittant. SEveral falls hitting neck including 2021. Scoliosis thoracolumbar spine. REcently treated in PT for left shoulder and bicep pain, thoracic and shoulder pain persists but biceps and elbow pain gone. Hasn't been able to do much of anything for the past week due to the pain in scapula and upper back, worse when sitting or standing. Prior Treatments and Tests MRI 10/19/22: Multilevel degenerative changes of the lumbar spine. CT neck 2021: Bones: Degenerative straightening of the usual cervical lordosis. Otherwise normal alignment. No listhesis. Vertebral body heights maintained. No fracture. Soft tissues: Prevertebral soft tissues are normal in thickness. No paravertebral hematomas. No apical pneumothoraces. IMPRESSION: No CT evidence of acute traumatic cervical spine injury. PT-OP-C Subjective Start: 09/22/23 08:29 Freq: Status: Active Protocol: Document 12/09/23 09:51 SAK (Rec: 12/09/23 10:29 SAK [id number]) OP-PT Subjective Patient Comments Patient Comments Read an article about the benefits of walking backwards and has been trying, feels like she stands straighter and feels glutes activating. Still struggling with recovery from cold. States she looked back at some chest x-rays and saw interstitial lung disease as diagnosis, seeing doctor to talk about it today, Dr. Johnson Page. PT-OP-F Manual Assessment Start: 09/22/23 08:29 Freq: Status: Active Protocol: Document 09/23/23 09:[address] [facility] (Rec: 09/23/23 16:[address] [facility] [id number]) Manual Assessments Soft Tissue Assessment Soft Tissue Mobility Assessment meño [place] trigger points left greater than right. PT-OP-G Mobility & Gait Start: 09/22/23 08:29 Freq: Status: Active Protocol: Document 09/23/23 09:[address] [facility] (Rec: 09/23/23 16:[address] [facility] [id number]) OP Gait Assessment Gait Gait Assistance Required: Independent Assistive Devices Assistive Device Straight Cane Orthotic/Prosthetic Devices or Brace: No Gait Deviations General Gait Pattern Antalgic,Decreased Stride Length,Decreased Feet Clearance,Flexed Trunk Comments Gait Comments feel use of cane left UE likely contributing to left scapular and thoracic spine pain PT-OP-H Neuro Start: 09/22/23 08:29 Freq: Status: Active Protocol: Document 09/23/23 09:[address] [facility] (Rec: 09/23/23 16:[address] [facility] [id number]) Sensation Evaluation Gross Sensation Gross Sensation WNL PT-OP-J Posture/Palpation/Skin Start: 09/22/23 08:29 Freq: Status: Active Protocol: Document 09/23/23 09:[address] [facility] (Rec: 09/23/23 09:[address] [facility] [id number]) Posture Evaluation Position Standing Head/C-Spine Posture Forward Head T-Spine Posture Flexible Scoliosis on (L) L-Spine Posture Flexible Scoliosis on (R) Shoulder Posture (L) Rounded,(R) Rounded Scapula Posture (L) Protracted,(R) Protracted Arm Posture (L) Internally Rotated,(R) Internally Rotated Palpation Assessment Location subscap Palpation Findings Soft Tissue Tightness, Tenderness,Trigger Point rhomboids Palpation Findings Soft Tissue Tightness,Trigger Point PT-OP-K Range of Motion Start: 09/22/23 08:29 Freq: Status: Active Protocol: Document 09/23/23 09:[address] [facility] (Rec: 09/23/23 09:[address] [facility] [id number]) Cervical Spine Range of Motion Cervical Spine Active Flexion 50 Extension 25 Rotation Left 45 Rotation Right 45 Lateral Flexion Left 25 Lateral Flexion Right 25 ROM Limitations Soft Tissue Tightness,Bony Restriction Lumbar Spine Range of Motion Lumbar Spine Active Flexion 60 Extension 5 Rotation Left 25 Rotation Right 25 Lateral Flexion Left 20 Lateral Flexion Right 25 Shoulder Goniometric Range of Motion Shoulder Left Flexion 165 Extension 20 Abduction 160 Horizontal Abduction 90 Horizontal Adduction 20 External Rotation at 45 degrees 55 Abduction Internal Rotation Behind Back (text) L4 Right Active Shoulder ROM WFL Yes Shoulder ROM Limitations Shoulder ROM Limitations Soft Tissue Tightness,Pain Hip Goniometric Range of Motion Hip meño Hip ROM WFL No Flexion w/Knee Flexed 100 Straight Leg Raise 85 Extension 0 Internal Rotation 20 External Rotation 60 Hip ROM Limitations Hip ROM Limitations Soft Tissue Tightness,Bony Restriction PT-OP-L Special Tests Start: 09/22/23 08:29 Freq: Status: Active Protocol: Document 09/23/23 09:[address] [facility] (Rec: 09/23/23 16:[address] [facility] [id number]) Special Tests Lumbar Spine Special Tests Compression Test Results neg Slump Test Results neg Shoulder Special Tests Belly Press Test Results + Elevation Impingement Test Results + Drop Arm Rotator Cuff Test Results - Hip Special Tests Straight Leg Raise Test Results negative PT-OP-M Strength Start: 09/22/23 08:29 Freq: Status: Active Protocol: Document 09/23/23 09:[address] [facility] (Rec: 09/23/23 16:[address] [facility] [id number]) Cervical Spine Strength Cervical Spine Manual Muscle Testing Flexion (C1-2) 4 Good Extension 4 Good Rotation Left 4 Good Rotation Right 4 Good Lateral Flexion Left (C3) 4 Good Lateral Flexion Right (C3) 4 Good Trunk Strength Trunk Manual Muscle Testing Flexion 3- Fair- Extension 3- Fair- Core Stabilization poor Scapula Strength Scapula Manual Muscle Testing Right Elevation (C4) 4+ Good+ Adduction 4+ Good+ Abduction 4+ Good+ Depression 4+ Good+ Left Elevation (C4) 4- Good- Adduction 4- Good- Abduction 4- Good- Depression 4- Good- Comments painful Shoulder Strength Shoulder Manual Muscle Testing Left Flexion 4- Good- Extension 4- Good- Abduction (C5) 4- Good- Adduction 4+ Good+ External Rotation 4- Good- Internal Rotation 4- Good- Right Flexion 5 Normal Extension 5 Normal Abduction (C5) 5 Normal Adduction 5 Normal External Rotation 4 Good Internal Rotation 4+ Good+ Hip Strength Hip Manual Muscle Testing meño Flexion (L2) 4 Good Extension (S1) 3- Fair- Abduction 3- Fair- External Rotation 3+ Fair+ Internal Rotation 3+ Fair+ PT-OP-Q Treatments Start: 09/22/23 08:29 Freq: Status: Active Protocol: Document 12/09/23 09:[address] [facility] (Rec: 12/09/23 10:[address] [facility] [id number]) Cardio Equipment Recumbent Stepper (Sci-Fit) Duration (Minutes) 8 Resistance 2-3 Seat Position 14 Other to facil symmetrical movement Gym Equipment Shuttle Recovery Unilateral Squats Resistance 37 Shuttle Recovery Platform Stable Reps/Time 10x2 Bilateral Squats Details cues for LE alignment Resistance 50 Shuttle Recovery Platform Unstable Reps/Time 10x2 Therapeutic Exercises Standing Exercises resisted walk Standing Exercise Name sidestepping, backward Reps/Minutes L1 TB PT-OP-R Modalities Start: 09/22/23 08:29 Freq: Status: Active Protocol: Document 09/23/23 09:[address] [facility] (Rec: 09/23/23 16:[address] [facility] [id number]) Hot Pack/Cold Pack Treatment Hot Pack Location thoracolumbar spine, L scap Patient Position Hooklying Comments 90/90 PT-OP-T Assessment and Plan Start: 09/22/23 08:29 Freq: Status: Active Protocol: Document 12/09/23 09:[address] [facility] (Rec: 12/09/23 10:[address] [facility] [id number]) Physical Therapy Assessment Goals Three Impairment trigger points Impairment upper trap and subscap Skilled Nursing Goal (LTG) minimize trigger points in upper trap and subscap muscles to improve patient function with all usual activities 10/30/23: good goal progress 12/09/23: goal achieved. LTG Duration goal achieved Two Impairment weakness Impairment core, scapula, left shoulder weakness Short Term Goal (STG) Patient to be instructed in progressive, individualized HEP for purposes of strengthening for improved joint support and function 10/30/23: continue to progress HEP, good compliance except hasn't started UE weight exercises yet; was issued updated HEP HO 12/09/23: goal met, unable to progress frther due to patient cold STG Duration goal met Top Icer Goal (LTG) Patient to be independent and compliant with HEP and demonstrate improvement in strength to at least 4+/5 for improve function of scapula, thoracic spine, left shoulder. 12/09/23: no MMT, session ended early due to patient having uncontrolled cough LTG Duration 12/24/23 One Impairment pain as high as 8/10 Impairment left thoracic spine, scapula Short Term Goal (STG) decrease pain to no greater than 4/10 with all usual acativities 11/09/23: patient reports mostly no greater than 5/10, good goal progress 12/09/23: min to no pain today but reports has been minimally active due to her cold STG Duration 11/10/23 Top Icer Goal (LTG) decrease pain to no greater than 2/10 with all usual activities including reaching overhead, behind her back, gardening, and fly fishing. LTG Duration 12/24/23 Assessment Summary Assessment Session stopped early due to patient having uncontrolled cough. Was wearing mask to PT . Will be seeing physician later today. REcommend follow up sesion in 3-4 wks. Physical Therapy Plan Frequency and Duration Frequency of Treatment 1x/Week Duration of treatment (weeks) 12 Plan of Care Start Date 09/23/23 Plan of Care End Date 12/24/23 Therapeutic Interventions Therapeutic Interventions Home Exercise Program,Joint Mobilizations,Manual Therapy, Patient/Caregiver Education, Self-Care/Home Management, Taping,Therapeutic Activities, Therapeutic Exercises Modalities Cold Pack/Ice Massage,Electric Stimulation,Hot Packs, Infrared Therapy,Iontophoresis ,Ultrasound Next Visit Focus/Plan Next Visit Plan follow up in 3-4 wks to assess status, update HEP as indicated.
--- NOTE | 2024-01-21 15:03 | PT.OTN ---
Current Diagnoses Spinal stenosis, lumbar region without neurogenic claudication (01/21/24) Radiculopathy, cervical region (01/21/24) Soft tissue disorder, unspecified (01/21/24) Abnormal posture (01/21/24) Weakness (01/21/24) Physical Therapy Treatment Note PT-OP-A Visit Information Start: 09/22/23 08:29 Freq: Status: Active Protocol: Document 01/21/24 14:30 SAK (Rec: 01/21/24 15:03 [facility] [id number]) Out-Patient Physical Therapy Visit Information Visit Information Visit Type Treatment Note Visit Start Time 14:30 Visit Stop Time 15:01 Visit Number 10 PT-OP-B Current Condition Start: 09/22/23 08:29 Freq: Status: Active Protocol: Document 01/21/24 14:30 SAK (Rec: 01/21/24 15:03 [facility] [id number]) Current Condition History of Current Condition Onset Date 5-6 yrs Current Complaints neck and back pain, left shoulder pain History of Current Condition History neck pain, back pain, and left shoulder pain. Went fishing last week using 2 handed tate; much worsened. sore shoulder, neck and back pain. cervical radiculopathy C8, spinal stenosis lumbar region with long history of back pain 5-6 years. Neck pain more intermittant. SEveral falls hitting neck including 2021. Scoliosis thoracolumbar spine. REcently treated in PT for left shoulder and bicep pain, thoracic and shoulder pain persists but biceps and elbow pain gone. Hasn't been able to do much of anything for the past week due to the pain in scapula and upper back, worse when sitting or standing. Prior Treatments and Tests MRI 10/19/22: Multilevel degenerative changes of the lumbar spine. CT neck 2021: Bones: Degenerative straightening of the usual cervical lordosis. Otherwise normal alignment. No listhesis. Vertebral body heights maintained. No fracture. Soft tissues: Prevertebral soft tissues are normal in thickness. No paravertebral hematomas. No apical pneumothoraces. IMPRESSION: No CT evidence of acute traumatic cervical spine injury. PT-OP-C Subjective Start: 09/22/23 08:29 Freq: Status: Active Protocol: Document 01/21/24 14:30 SAK (Rec: 01/21/24 15:03 [facility] [id number]) OP-PT Subjective Patient Comments Patient Comments States has been walking and doing a lot more, both hips aching. Pain in scapular area worse with walking due to use of cane in left UE, also considering using backpack purse. Hasn't been back to the pool since it reopened. Still trying to do walking backwards. Hasn't been real faithful about doing her exercises on a regular basis because of yardwork. Hips mostly hurt when lay down on them at night. Also meño hips left greater than right at times feels leg is going to give way. PT-OP-F Manual Assessment Start: 09/22/23 08:29 Freq: Status: Active Protocol: Document 09/23/23 09:00 [facility] (Rec: 09/23/23 16:14 [facility] [id number]) Manual Assessments Soft Tissue Assessment Soft Tissue Mobility Assessment meño UT trigger points left greater than right. PT-OP-G Mobility & Gait Start: 09/22/23 08:29 Freq: Status: Active Protocol: Document 09/23/23 09:00 [facility] (Rec: 09/23/23 16:14 [facility] [id number]) OP Gait Assessment Gait Gait Assistance Required: Independent Assistive Devices Assistive Device Straight Cane Orthotic/Prosthetic Devices or Brace: No Gait Deviations General Gait Pattern Antalgic,Decreased Stride Length,Decreased Feet Clearance,Flexed Trunk Comments Gait Comments feel use of cane left UE likely contributing to left scapular and thoracic spine pain PT-OP-H Neuro Start: 09/22/23 08:29 Freq: Status: Active Protocol: Document 09/23/23 09:00 [facility] (Rec: 09/23/23 16:14 [facility] [id number]) Sensation Evaluation Gross Sensation Gross Sensation WNL PT-OP-J Posture/Palpation/Skin Start: 09/22/23 08:29 Freq: Status: Active Protocol: Document 09/23/23 09:00 [facility] (Rec: 09/23/23 09:49 [facility] [id number]) Posture Evaluation Position Standing Head/C-Spine Posture Forward Head T-Spine Posture Flexible Scoliosis on (L) L-Spine Posture Flexible Scoliosis on (R) Shoulder Posture (L) Rounded,(R) Rounded Scapula Posture (L) Protracted,(R) Protracted Arm Posture (L) Internally Rotated,(R) Internally Rotated Palpation Assessment Location subscap Palpation Findings Soft Tissue Tightness, Tenderness,Trigger Point rhomboids Palpation Findings Soft Tissue Tightness,Trigger Point PT-OP-K Range of Motion Start: 09/22/23 08:29 Freq: Status: Active Protocol: Document 09/23/23 09:00 [facility] (Rec: 09/23/23 09:49 [facility] [id number]) Cervical Spine Range of Motion Cervical Spine Active Flexion 50 Extension 25 Rotation Left 45 Rotation Right 45 Lateral Flexion Left 25 Lateral Flexion Right 25 ROM Limitations Soft Tissue Tightness,Bony Restriction Lumbar Spine Range of Motion Lumbar Spine Active Flexion 60 Extension 5 Rotation Left 25 Rotation Right 25 Lateral Flexion Left 20 Lateral Flexion Right 25 Shoulder Goniometric Range of Motion Shoulder Left Flexion 165 Extension 20 Abduction 160 Horizontal Abduction 90 Horizontal Adduction 20 External Rotation at 45 degrees 55 Abduction Internal Rotation Behind Back (text) L4 Right Active Shoulder ROM WFL Yes Shoulder ROM Limitations Shoulder ROM Limitations Soft Tissue Tightness,Pain Hip Goniometric Range of Motion Hip meño Hip ROM WFL No Flexion w/Knee Flexed 100 Straight Leg Raise 85 Extension 0 Internal Rotation 20 External Rotation 60 Hip ROM Limitations Hip ROM Limitations Soft Tissue Tightness,Bony Restriction PT-OP-L Special Tests Start: 09/22/23 08:29 Freq: Status: Active Protocol: Document 09/23/23 09:00 [facility] (Rec: 09/23/23 16:14 [facility] [id number]) Special Tests Lumbar Spine Special Tests Compression Test Results neg Slump Test Results neg Shoulder Special Tests Belly Press Test Results + Elevation Impingement Test Results + Drop Arm Rotator Cuff Test Results - Hip Special Tests Straight Leg Raise Test Results negative PT-OP-M Strength Start: 09/22/23 08:29 Freq: Status: Active Protocol: Document 09/23/23 09:00 [facility] (Rec: 09/23/23 16:14 [facility] [id number]) Cervical Spine Strength Cervical Spine Manual Muscle Testing Flexion (C1-2) 4 Good Extension 4 Good Rotation Left 4 Good Rotation Right 4 Good Lateral Flexion Left (C3) 4 Good Lateral Flexion Right (C3) 4 Good Trunk Strength Trunk Manual Muscle Testing Flexion 3- Fair- Extension 3- Fair- Core Stabilization poor Scapula Strength Scapula Manual Muscle Testing Right Elevation (C4) 4+ Good+ Adduction 4+ Good+ Abduction 4+ Good+ Depression 4+ Good+ Left Elevation (C4) 4- Good- Adduction 4- Good- Abduction 4- Good- Depression 4- Good- Comments painful Shoulder Strength Shoulder Manual Muscle Testing Left Flexion 4- Good- Extension 4- Good- Abduction (C5) 4- Good- Adduction 4+ Good+ External Rotation 4- Good- Internal Rotation 4- Good- Right Flexion 5 Normal Extension 5 Normal Abduction (C5) 5 Normal Adduction 5 Normal External Rotation 4 Good Internal Rotation 4+ Good+ Hip Strength Hip Manual Muscle Testing meño Flexion (L2) 4 Good Extension (S1) 3- Fair- Abduction 3- Fair- External Rotation 3+ Fair+ Internal Rotation 3+ Fair+ PT-OP-Q Treatments Start: 09/22/23 08:29 Freq: Status: Active Protocol: Document 01/21/24 14:30 [facility] (Rec: 01/21/24 15:03 [facility] [id number]) Manual Therapy Treatment Other Other Manual Treatments ROM and MMT left ULE Self-Care/Home Management Treatment Education Other Education achieved. REcommended patient try towel under side when laying in bed and/or consider going to mattress store to try out different mattresses to see if less pain. Also recommended step up exercise with emphasis gluteal activation. Patient in agreement. PT-OP-R Modalities Start: 09/22/23 08:29 Freq: Status: Active Protocol: Document 09/23/23 09:00 [facility] (Rec: 09/23/23 16:14 [facility] [id number]) Hot Pack/Cold Pack Treatment Hot Pack Location thoracolumbar spine, L scap Patient Position Hooklying Comments 90/90 PT-OP-T Assessment and Plan Start: 09/22/23 08:29 Freq: Status: Active Protocol: Document 01/21/24 14:30 [facility] (Rec: 01/21/24 15:03 [facility] [id number]) Physical Therapy Assessment Goals Three Impairment trigger points Impairment upper trap and subscap Retirement Goal (LTG) minimize trigger points in upper trap and subscap muscles to improve patient function with all usual activities 10/30/23: good goal progress 12/09/23: goal achieved. LTG Duration goal achieved Two Impairment weakness Impairment core, scapula, left shoulder weakness Short Term Goal (STG) Patient to be instructed in progressive, individualized HEP for purposes of strengthening for improved joint support and function 10/30/23: continue to progress HEP, good compliance except hasn't started UE weight exercises yet; was issued updated HEP HO 12/09/23: goal met, unable to progress frther due to patient cold STG Duration goal met Concrete [employer]isher Goal (LTG) Patient to be independent and compliant with HEP and demonstrate improvement in strength to at least 4+/5 for improve function of scapula, thoracic spine, left shoulder. 12/09/23: no MMT, session ended early due to patient having uncontrolled cough 01/21/24: goal met LTG Duration goal met One Impairment pain as high as 8/10 Impairment left thoracic spine, scapula Short Term Goal (STG) decrease pain to no greater than 4/10 with all usual acativities 11/09/23: patient reports mostly no greater than 5/10, good goal progress 12/09/23: min to no pain today but reports has been minimally active due to her cold STG Duration goal met Con[employer]isher Goal (LTG) decrease pain to no greater than 2/10 with all usual activities including reaching overhead, behind her back, gardening, and fly fishing. LTG Duration goal met Assessment Summary Assessment Follow-up assessment today. Patient doing well, all goals achieved. REcommended patient try towel under side when laying in bed and/or consider going to mattress store to try out different mattresses to see if less pain. Also recommended step up exercise with emphasis gluteal activation. Patient in agreement. Physical Therapy Plan Discharge Physical Therapy Discharge Reasons Goals Met
== END 2024-01-28 08:30 | disposition home or self-care (01) ==
LOC: PHYS 14:30
PROVIDERS: Family Provider Student in an Organized Health Care Education/Training Program; PCP Student in an Organized Health Care Education/Training Program; Referring Provider Student in an Organized Health Care Education/Training Program; Visit Provider Student in an Organized Health Care Education/Training Program
DX: M54.12 Radiculopathy, cervical region (principal); M48.061 Spinal stenosis, lumbar region without neurogenic claudication; R53.1 Weakness; R29.3 Abnormal posture; M79.9 Soft tissue disorder, unspecified
CPT/HCPCS: 97010; 97110; 97116; 97140; 97162; 97530; 97535